=== PATIENT | female | born 1950 ===

== ENCOUNTER 2016-09-19 21:14 | Emergency (ER) | payer MEDICARE, MEDICAID ==
[2016-09-19 21:25] VITALS: BP 153/74; PULSE 89; RESP 18; TEMP 97.8; O2SAT 97
[2016-09-19] MEDS ORDERED: Oxycodone/Acetaminophen 5/325 mg Tab PO STA (21:30)
[2016-09-19] MEDS ORDERED: Oxycodone/Acetaminophen 5/325 mg Tab ONE (21:34)
--- NOTE | 2016-09-19 21:35 | C.PDOC ---
History Of Present Illness 65 y/o female presents to the ED with complaints of left upper dental pain x1 day. Pt states she got new dentures a few months ago and developed pain to left upper side yesterday, pain persisted after removing dentures. Denies fever, chills, or any other complaints. Chief Complaint (Nursing): Dental Pain History Per: Patient History/Exam Limitations: no limitations Onset/Duration Of Symptoms: Hrs Current Symptoms Are (Timing): Still Present Severity: Moderate Quality: Positive for: "Pain" Recent travel outside of the [place]: No Past Medical History Reviewed: Historical Data, Nursing Documentation, Vital Signs Vital Signs: Last Vital Signs Temp 97.8 F 09/19/16 21:23 Pulse 89 09/19/16 21:23 Resp 18 09/19/16 21:23 BP 153/74 H 09/19/16 21:23 Pulse Ox 97 09/19/16 21:39 - Medical History PMH: HTN Family History: States: Unknown Family Hx - Social History Hx Alcohol Use: No Hx Substance Use: No - Immunization History Hx Tetanus Toxoid Vaccination: Yes Hx Influenza Vaccination: No Hx Pneumococcal Vaccination: No Review Of Systems Constitutional: Negative for: Fever, Chills ENT: Positive for: Other (left upper dental pain) Physical Exam - Physical Exam Appears: Non-toxic, No Acute Distress Skin: Warm, Dry, No Rash Head: Atraumatic, Normacephalic Oral Mucosa: Moist Teeth: No Caries (no obvious caries), Other (3 teeth remaining) Gingiva: Swelling (mild), No Bleeding, No Abscess Throat: Normal Neck: Normal, Normal ROM, Supple Neurological/Psych: Oriented x3, Normal Speech, Normal Cognition ED Course And Treatment O2 Sat by Pulse Oximetry: 97 (room air) Pulse Ox Interpretation: Normal Progress Note: Plan: penicillin, percocet. On reevaluation, pain improved and pt is feeling better. Instructed patient to follow up with dentist in 2-3 days for further evaluation. Disposition - Disposition Referrals: Angie Ramos MD [Non-Staff] - Disposition: HOME/ ROUTINE Disposition Time: 21:44 Condition: STABLE Additional Instructions: Follow up with PMD and Dentist within 1-2 days. Return to ED if feel worse. Prescriptions: Penicillin VK [Pen-Vee K] 500 mg PO Q6 #28 tab oxyCODONE/Acetaminophen [Percocet 5/325 mg Tab] 1 tab PO QID PRN #20 tab PRN Reason: Pain Instructions: Toothache (ED) Forms: [facility] (Surinamese) - Clinical Impression Clinical Impression: Toothache - PA / [employer] / Resident Statement MD/DO has reviewed & agrees with the documentation as recorded. - Scribe Statement The provider has reviewed the documentation as recorded by the Scribe Josiah Keenan All medical record entries made by the Scribe were at my direction and personally dictated by me. I have reviewed the chart and agree that the record accurately reflects my personal performance of the history, physical exam, medical decision making, and the department course for this patient. I have also personally directed, reviewed, and agree with the discharge instructions and disposition.
== END 2016-09-19 22:00 | disposition home or self-care (01) ==
LOC: C.ER 21:14
DX: K08.89 Other specified disorders of teeth and supporting structures (principal)

== ENCOUNTER 2016-10-07 18:48 | Inpatient (IN) | payer OTHER ==
[2016-10-07] MEDS ORDERED: Sodium Chloride 0.9% 1,000 ML IV ONE (19:45)
--- NOTE | 2016-10-07 19:46 | CT ---
EXAM: CT Head Without Intravenous Contrast EXAM DATE/TIME: Exam ordered 10/07/2016 7:20 PM CLINICAL HISTORY: 65 years old, female; Signs and symptoms; Weakness, facial; Patient HX: Rt facial droop/h/o CVA; Additional info: Stroke alert bed 6 TECHNIQUE: Axial computed tomography images of the head/brain without intravenous contrast. All CT scans at this facility use one or more dose reduction techniques, viz.: automated exposure control; ma/kV adjustment per patient size (including targeted exams where dose is matched to indication; i.e. head); or iterative reconstruction technique. COMPARISON: No relevant prior studies available. FINDINGS: Brain: There is a 6 mm low density focus noted at the genu of the internal capsule on the right Basal ganglia calcifications seen. 2 foci of low density are noted within the meliton measuring 6 mm and 4 mm respectively . They focal area of relative decreased some density is noted within the left thalamus and posterior limb of the internal capsule extending into the helms radiata and centrum semiovale bilaterally. Periventricular low density is seen bilaterally. No hemorrhage. No significant white matter disease. No edema. Ventricles: Unremarkable. No ventriculomegaly. Bones/joints: Unremarkable. No acute fracture. Soft tissues: Unremarkable. Sinuses: Soft tissue thickening is noted within the left ethmoid air cells. Mastoid air cells: Unremarkable as visualized. No mastoid effusion. 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 IMPRESSION: 1. No acute findings. 2. Subacute/chronic infarct on the left extending from the thalamus into the posterior limb of the internal capsule, helms radiata and centrum semiovale. 3. Subacute/chronic lacunar infarct in the genu of the right internal capsule. 4. Subacute/chronic lacunar infarcts noted within the meliton 5. Chronic sinusitis in the left ethmoids
--- NOTE | 2016-10-07 19:47 | C.PDOC ---
History Of Present Illness <Jaswant Cavazos - Last Filed: 10/07/16 21:32> <Fam Hernandez - Last Filed: 10/08/16 09:39> 65 year old female with a Hx of depression and 2 CVAs in 2002 and 2006 was brought to the ER by family for a complaint of slurred speech since yesterday at 14:00. Patient has residual right sided weakness from the prior CVA. As per family, patient has been crying for the past 2-3 days. Patient denies headache, nausea, vomiting, dizziness, or chest pain. (Jaswant Cavazos) History Per: Patient, Family History/Exam Limitations: no limitations Onset/Duration Of Symptoms: Days Current Symptoms Are (Timing): Still Present Activity At Onset Of Symptoms: Other (Not known) Seizure Or Post-ictal Symptoms: None Possible Causative Factor(s): Other (Not known) Fall Associated With With Symptoms: No Recent travel outside of the [place]: No - Symptoms Of CVA Associated Symptoms: Impaired Speech (Slurred). denies: Seizure Activity, New Vision Deficit(Left), New Vision Deficit(Right), Decreased Ability To Walk, New Confusion Character Of Deficits: Right: Weakness (Residual from old CVA) Recent Head Trauma: No <Jaswant Caavzos R - Last Filed: 10/07/16 21:32> <Fam Hernandez - Last Filed: 10/08/16 09:39> Time Seen by Provider: 10/07/16 19:30 Chief Complaint (Nursing): Weakness/Neurological Deficit Past Medical History Reviewed: Historical Data, Nursing Documentation, Vital Signs - Medical History PMH: HTN, Hypercholesterolemia Surgical History: No Surg Hx Family History: States: Unknown Family Hx - Social History Hx Alcohol Use: No Hx Substance Use: No - Immunization History Hx Tetanus Toxoid Vaccination: Yes Hx Influenza Vaccination: No Hx Pneumococcal Vaccination: No <Jaswant Cavazos - Last Filed: 10/07/16 21:32> Review Of Systems Constitutional: Negative for: Fever, Chills Cardiovascular: Negative for: Chest Pain Gastrointestinal: Negative for: Nausea, Vomiting Neurological: Positive for: Change in Speech. Negative for: Headache, Dizziness <Jaswant Cavazos - Last Filed: 10/07/16 21:32> Physical Exam - Physical Exam Appears: Non-toxic, Other (Alert, Conscious) Skin: Normal Color, Warm, Dry Head: Atraumatic, Normacephalic Eye(s): right: Other (Eye prosthesis), left: Normal Inspection Oral Mucosa: Moist Neck: Normal, Supple Chest: Symmetrical, No Tenderness Cardiovascular: Rhythm Regular, No Murmur Respiratory: Normal Breath Sounds, No Rales, No Rhonchi, No Wheezing Gastrointestinal/Abdominal: Soft, No Tenderness Neurological/Psych: Oriented x3, Normal Speech, Normal Cognition, Other (Mild right sided weakness from old CVA) <Jaswant Cavazos R - Last Filed: 10/07/16 21:32> ED Course And Treatment - Laboratory Results Result Diagrams: 10/07/16 20:00 10/07/16 20:00 O2 Sat by Pulse Oximetry: 99 (Room air) Pulse Ox Interpretation: Normal - CT Scan/US CT Head Other Rad Studies (CT/US): Read By Radiologist, Radiology Report Reviewed CT/US Interpretation: EXAM: CT Head Without Intravenous Contrast. EXAM DATE/ TIME: Exam ordered 10/07/2016 7:20 PM. CLINICAL HISTORY: 65 years old, female ; Signs and symptoms; Weakness, facial; Patient HX: Rt facial droop/h/o CVA;. Additional info: Stroke alert bed 6. TECHNIQUE: Axial computed tomography images of the head/brain without intravenous contrast. All CT scans at. this facility use one or more dose reduction techniques, viz.: automated exposure control; ma/kV. adjustment per patient size (including targeted exams where dose is matched to indication; i.e. head);. or iterative reconstruction technique. COMPARISON: No relevant prior studies available. FINDINGS: Brain : There is a 6 mm low density focus noted at the genu of the internal capsule on the right. Basal ganglia calcifications seen. 2 foci of low density are noted within the meliton measuring 6 mm. and 4 mm respectively . They focal area of relative decreased some density is noted within the left. thalamus and posterior limb of the internal capsule extending into the helms radiata and centrum. semiovale bilaterally. Periventricular low density is seen bilaterally. No hemorrhage. No significant. white matter disease. No edema. Ventricles: Unremarkable. No ventriculomegaly. Bones/joints: Unremarkable. No acute fracture. Soft tissues: Unremarkable. Sinuses: Soft tissue thickening is noted within the left ethmoid air cells. Mastoid air cells: Unremarkable as visualized. No mastoid effusion. 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 IMPRESSION: 1. No acute findings. 2. Subacute/chronic infarct on the left extending from the thalamus into the posterior limb of the. internal capsule, helms radiata and centrum semiovale. 3. Subacute/chronic lacunar infarct in the genu of the right internal capsule. 4. Subacute/chronic lacunar infarcts noted within the meliton. 5. Chronic sinusitis in the left ethmoids Progress Note: Head CT, EKG, and blood work ordered. IV fluids administered. <Jaswant Cavazos - Last Filed: 10/07/16 21:32> - Laboratory Results Result Diagrams: 10/08/16 07:13 10/08/16 07:13 <Fam Hernandez - Last Filed: 10/08/16 09:39> NIHSS Stroke Scale - Date/Time Evaluation Performed Date Performed: 10/07/16 Time Performed: 19:40 When Was NIHSS Performed: Baseline - How Severe is the Stoke Level of Consciousness: 0=Alert LOC to Questions: 0=Both comments correct LOC to commands: 0=Obeys both correctly Visual: 1=Partial hemianopia (Right eye-prothesis) Facial: 1=Minor asymmetry Motor Arm - Left: 0=No drift Motor Arm - Right: 0=No drift Motor Leg - Left: 0=No drift Motor Leg - Right: 1=Drift before 5 sec Limb Ataxia: 0=Absent Sensory: 0=Normal Best Language: 0=No aphasia Dysarthia: 1=Mild to moderate slurring Extinction & Inattention (Neglect): 0=Normal, no object Severity Of Stroke: 1-4= Minor Stroke (Hx ofold CVA-2002 and 2006) <Jaswant Cavazos - Last Filed: 10/07/16 21:32> Medical Decision Making <Jaswant Cavazos - Last Filed: 10/07/16 21:32> <Fam Hernandez - Last Filed: 10/08/16 09:39> Medical Decision Making: I received a call from radiologist at 9:38 with MRI showing acute stroke. Patient admitted with neuro consult and under medical management already. (Fam Hernandez) Disposition Discussed With : Preston Craft Doctor Will See Patient In The: Hospital Counseled Patient/Family Regarding: Diagnosis - Disposition Disposition Time: 21:27 - POA Present On Arrival: None <Jaswant Cavazos - Last Filed: 10/07/16 21:32> <Fam Hernandez - Last Filed: 10/08/16 09:39> - Disposition Disposition: HOSPITALIZED Condition: STABLE - Clinical Impression Clinical Impression: Slurring of speech, CVA, old, dysarthria, Hypertension - Scribe Statement The provider has reviewed the documentation as recorded by the Scribe <Jaswant Cavazos - Last Filed: 10/07/16 21:32> <Fam Hernandez - Last Filed: 10/08/16 09:39> - Scribe Statement Ramon Garsia All medical record entries made by the Scribe were at my direction and personally dictated by me. I have reviewed the chart and agree that the record accurately reflects my personal performance of the history, physical exam, medical decision making, and the department course for this patient. I have also personally directed, reviewed, and agree with the discharge instructions and disposition. (Jaswant Cavazos)
[2016-10-07 20:14] LABS: BASO # 0.1 K/uL (0.0-0.2); BASO % 0.5 % (0.0-2.0); EOS # 0.2 K/uL (0.0-0.7); EOS % 1.1 % (0.0-4.0); HEMATOCRIT 39.3 % (34.0-47.0); LYMPH # 2.9 K/uL (1.0-4.3); LYMPH % 16.7 % (20.0-40.0); MEAN CELL VOLUME 81.7 fL (81.0-99.0); MEAN CORPUSCULAR HEMOGLOBIN 26.5 pg (27.0-31.0); MEAN CORPUSCULAR HGB CONC 32.4 g/dL (33.0-37.0); MEAN PLATELET VOLUME 9.5 fL (7.2-11.7); MONO # 0.8 K/uL (0.0-0.8); MONO % 4.4 % (0.0-10.0); RED CELL DISTRIBUTION WIDTH 13.9 % (11.5-14.5); WHITE BLOOD COUNT 17.4 K/uL (4.8-10.8)
[2016-10-07 20:18] LABS: POTASSIUM 5.1 mmol/L (3.6-5.2)
[2016-10-07 20:20] LABS: ALB/GLOB RATIO 1.1 (1.0-2.1); BILIRUBIN,TOTAL 0.7 mg/dL (0.2-1.3); TOTAL PROTEIN 7.7 g/dL (6.3-8.3)
[2016-10-08 01:15] LABS: RBC URINE < 1 /hpf (0-3); URINE BILIRUBIN NEGATIVE (NEGATIVE); URINE BLOOD NEGATIVE (NEGATIVE); URINE COLOR Straw (YELLOW); URINE GLUCOSE (UA) 3+ mg/dL (Normal); URINE KETONE NEGATIVE (NEGATIVE); URINE LEUKOCYTE ESTERASE NEG Leu/uL (Negative); URINE PROTEIN 1+ mg/dL (NEGATIVE); URINE UROBILINOGEN NORMAL mg/dL (0.2-1.0); WBC URINE < 1 /hpf (0-5)
[2016-10-08 07:20] LABS: HEMATOCRIT 37.4 % (34.0-47.0); MEAN CELL VOLUME 81.3 fL (81.0-99.0); MEAN CORPUSCULAR HEMOGLOBIN 26.5 pg (27.0-31.0); MEAN CORPUSCULAR HGB CONC 32.5 g/dL (33.0-37.0); MEAN PLATELET VOLUME 9.7 fL (7.2-11.7); RED CELL DISTRIBUTION WIDTH 14.1 % (11.5-14.5); WHITE BLOOD COUNT 15.1 K/uL (4.8-10.8)
[2016-10-08 07:26] LABS: POTASSIUM 4.2 mmol/L (3.6-5.2)
[2016-10-08 07:29] LABS: CALCIUM 9.3 mg/dl (8.6-10.4)
--- NOTE | 2016-10-08 09:38 | MRI ---
PROCEDURE: MRI BRAIN WITHOUT CONTRAST HISTORY: CVA COMPARISON: Comparison is made to the previous CT dated 10/07/2016 TECHNIQUE: Multiplanar, multisequence MR images of the brain were obtained without intravenous contrast enhancement. FINDINGS: HEMORRHAGE: None DWI: There is focal diffusion restriction at the right aspect of the meliton measures approximately 1 centimeter consistent with acute/early subacute infarction. BRAIN PARENCHYMA: Again seen are foci of encephalomalacia at the left thalamus and basal ganglia consistent with old lacunar infarct. There is also encephalomalacia at the left coronal radiata also suggestive of old infarct. [id number] atrophy and vzbv-ad-qtkmanlt chronic microvascular white matter ischemic disease are seen. VENTRICLES: Unremarkable. No hydrocephalus. CRANIUM: Unremarkable. ORBITS: Grossly unremarkable. PARANASAL SINUSES/MASTOIDS: Mild sinuses mucosal thickening seen in the ethmoid maxillary and sphenoid sinuses. VASCULAR SYSTEM: Skull base flow voids intact. OTHER FINDINGS: None. IMPRESSION: Focal diffusion restriction at the right meliton consistent with acute/early subacute infarction. Foci of encephalomalacia at the left thalamus/ basal ganglia and helms radiata consistent with old small infarctions. Rtzm-mb-lttancgv atrophy and chronic microvascular white matter ischemic disease. Mild sinuses mucosal disease.
--- NOTE | 2016-10-08 10:46 | RAD ---
HISTORY: CVA COMPARISON: None available. TECHNIQUE: Chest, one view. FINDINGS: Examination limited by habitus. LUNGS: No focal consolidation. Please note that chest x-ray has limited sensitivity for the detection of pulmonary masses. PLEURA: No significant pleural effusion identified. No definite pneumothorax . CARDIOVASCULAR: Heart size appears within normal limits. Atherosclerotic calcifications of the aorta. OSSEOUS STRUCTURES: Degenerative changes. VISUALIZED UPPER ABDOMEN: Unremarkable. OTHER FINDINGS: None. IMPRESSION: No focal consolidation, significant pleural effusion, or definite pneumothorax identified.
[2016-10-08] MEDS: Enoxaparin 40 mg Syringe SC SCH (11:00)
--- NOTE | 2016-10-08 17:33 | CP.PCM.CON ---
History of Present Illness - History of Present Illness History of Present Illness: Mrs. Neely is a 65-year-old woman with a past medical history of previous ischemic stroke, HTN, DM, HLD who was brought to the ED due to worsening slurred speech. She was hypertensive on arrival to the ED. MRI of the brain showed multi-focal ischemic strokes involving bilateral basal ganglia that are chronic and an acute to subacute ischemic stroke involving the right paramedian region of the meliton. Today, she continued to have dysarthria and dysphagia with gait instability. She had no other complaints or new symptoms overnight. She denied headache, but did complain of some diplopia at times. No nausea, vomiting abdominal pain, SOB or other associated symptoms. Review of Systems - Review of Systems All systems: reviewed and no additional remarkable complaints except Past Patient History - Past Social History Smoking Status: Never Smoked - CARDIAC Hx Hypercholesterolemia: Yes Hx Hypertension: Yes - NEUROLOGICAL HX Cerebrovascular Accident: Yes (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) - HEENT Hx HEENT Problems: Yes Other/Comment: RT EYE PROSTHESIS - ENDOCRINE/METABOLIC Hx Endocrine Disorders: Yes Hx Diabetes Mellitus Type 2: Yes - MUSCULOSKELETAL/RHEUMATOLOGICAL Hx Falls: No - PSYCHIATRIC Hx Substance Use: No - SURGICAL HISTORY Hx Surgeries: Yes Other/Comment: RT EYE SX - ANESTHESIA Hx Anesthesia: Yes Hx Anesthesia Reactions: No Meds Allergies/Adverse Reactions: Allergies Allergy/AdvReac Type Severity Reaction Status Date / Time No Known Allergies Allergy Verified 03/04/15 12:26 - Medications Medications: Current Medications Amlodipine Besylate (Norvasc) 10 mg PO DAILY [facility] Last Admin: 10/08/16 11:00 Dose: 10 mg Aspirin (Ecotrin) 81 mg PO DAILY [facility] Last Admin: 10/08/16 11:00 Dose: 81 mg Clopidogrel Bisulfate (Plavix) 75 mg PO DAILY [facility] Enoxaparin Sodium (Lovenox) 40 mg SC DAILY [facility] Last Admin: 10/08/16 11:00 Dose: 40 mg Sodium Chloride (Sodium Chloride 0.9%) 1,000 mls @ 100 mls/hr IV .Q10H [facility] Insulin Aspart (Novolog) 0 unit SC ACBHS [facility] PRN Reason: Protocol Losartan Potassium (Cozaar) 50 mg PO DAILY [facility] Last Admin: 10/08/16 11:00 Dose: 50 mg Metformin HCl (Glucophage) 1,000 mg PO BID [facility] Last Admin: 10/08/16 11:00 Dose: 1,000 mg Pneumococcal Polyvalent Vaccine (Pneumovax 23 Vaccine) 0.5 ml IM .ONCE ONE Stop: 10/09/16 10:01 Rosuvastatin Calcium (Crestor) 20 mg PO HS [facility] Last Admin: 10/08/16 00:29 Dose: 20 mg Physical Exam - Constitutional Appears: Well - Head Exam Head Exam: ATRAUMATIC, NORMAL INSPECTION, NORMOCEPHALIC - Eye Exam Eye Exam: EOMI, Normal appearance, PERRL - ENT Exam ENT Exam: Mucous Membranes Moist, Normal Exam - Neck Exam Neck exam: Positive for: Normal Inspection - Respiratory Exam Respiratory Exam: Clear to Auscultation Bilateral, NORMAL BREATHING PATTERN - Cardiovascular Exam Cardiovascular Exam: REGULAR RHYTHM, +S1, +S2 - GI/Abdominal Exam GI & Abdominal Exam: Normal Bowel Sounds, Soft. absent: Tenderness - Rectal Exam Rectal Exam: Deferred - Extremities Exam Extremities exam: Positive for: normal inspection - Back Exam Back exam: NORMAL INSPECTION - Neurological Exam Neurological exam: Abnormal Gait, CN II-XII Intact, Oriented x3 Additional comments: Reflexes are brisk on the left side with upgoing bilateral plantar responses. Gait is wide based. Sensation is decreased on the left side to LT/P. Dysarthria was noted. No significant aphasia. NIHSS = 4 - Psychiatric Exam Psychiatric exam: Normal Affect, Normal Mood - Skin Skin Exam: Dry, Intact, Normal Color, Warm Results - Vital Signs Recent Vital Signs: Last Vital Signs Temp 98.3 F 10/08/16 15:09 Pulse 65 10/08/16 15:09 Resp 20 10/08/16 15:09 BP 153/71 H 10/08/16 15:09 Pulse Ox 98 10/08/16 15:09 - Labs Result Diagrams: 10/08/16 07:13 10/08/16 07:13 Labs: Laboratory Results - last 24 hr 10/08/16 10/08/16 10/08/16 00:46 07:13 07:13 WBC 15.1 H RBC 4.60 Hgb 12.2 Hct 37.4 MCV 81.3 MCH 26.5 L MCHC 32.5 L RDW 14.1 Plt Count 321 MPV 9.7 Sodium 135 Potassium 4.2 Chloride 98 Carbon Dioxide 27 Anion Gap 15 BUN 25 H Creatinine 1.1 Est GFR ( Amer) 60 Est GFR (Non-Af Amer) 50 POC Glucose (mg/dL) Random Glucose 230 H Calcium 9.3 Urine Color Straw Urine Clarity Clear Urine pH 7.0 Ur Specific [place] 1.011 Urine Protein 1+ H Urine Glucose (UA) 3+ H Urine Ketones Negative Urine Blood Negative Urine Nitrate Negative Urine Bilirubin Negative Urine Urobilinogen Normal Ur Leukocyte Esterase Neg Urine WBC (Auto) < 1 Urine RBC (Auto) < 1 Ur Squamous Epith Cells 1 10/08/16 07:53 WBC RBC Hgb Hct MCV MCH MCHC RDW Plt Count MPV Sodium Potassium Chloride Carbon Dioxide Anion Gap BUN Creatinine Est GFR ( Amer) Est GFR (Non-Af Amer) POC Glucose (mg/dL) 306 H Random Glucose Calcium Urine Color Urine Clarity Urine pH Ur Specific [place] Urine Protein Urine Glucose (UA) Urine Ketones Urine Blood Urine Nitrate Urine Bilirubin Urine Urobilinogen Ur Leukocyte Esterase Urine WBC (Auto) Urine RBC (Auto) Ur Squamous Epith Cells Assessment & Plan (1) Ischemic stroke Assessment and Plan: All of her previous and current infarcts are in 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 I recommend using CCB and ARB or JOE-I for BP control and tight glucose control per primary team. Furthermore, I recommend: 1. Telemetry 2. Echocardiogram with Bubble study 3. CTA of the head/neck 4. Load with Plavix 300 mg today and continue both aspirin 81 mg and Plavix 75 mg daily 5. Continue Crestor for high dose statin therapy 6. Check HbA1c, B12, Folate, TSH, CRP, ESR, and hypercoagulable work-up 7. NPO till swallow eval 8. PT/OT eval and treat 9. DVT Px 10. Fluids with NS at 100 ml/hr 11. Permissive hypertension for next 24 hours (do not treat BP < 200/100 mm Hg) 12. Case management consult. Thank you. Status: Acute Priority: High
--- NOTE | 2016-10-08 17:59 | CARD ---
APPROVED REPORT EXAM: Two-dimensional and M-mode echocardiogram with Doppler and color Doppler. Other Information Quality : GoodRhythm : NSR INDICATION CVA/TIA RISK FACTORS Hypertension Hyperlipidemia 2D DIMENSIONS IVSd1.3 (0.7-1.1cm)LVDd3.6 (3.9-5.9cm) PWd1.2 (0.7-1.1cm)LVDs2.3 (2.5-4.0cm) FS (%) 36.7 %LVEF (%)67.5 (>50%) M-Mode DIMENSIONS Left Atrium (MM)3.95 (2.5-4.0cm)IVSd1.40 (0.7-1.1cm) Aortic Root3.07 (2.2-3.7cm)LVDd4.74 (4.0-5.6cm) Aortic Cusp Exc.1.76 (1.5-2.0cm)PWd1.18 (0.7-1.1cm) FS (%) 48 %LVDs2.46 (2.0-3.8cm) LVEF (%)79 (>50%) Mitral Valve MV E Bxdcjues87.5cm/sMV A Vetclffm622.1cm/sE/A ratio0.6 TDI E/Lateral E'0.0E/Medial E'0.0 Tricuspid Valve TR Peak [id number]/sTR Peak Gr.[id number] LEFT VENTRICLE The left ventricle is normal size. There is mild concentric left ventricular hypertrophy. Left ventricle systolic function is normal. The Ejection Fraction is >70%. There is normal LV segmental wall motion. Tissue Doppler imaging reveals abnormal left ventricular diastolic dysfunction. RIGHT VENTRICLE The right ventricle is normal size. There is normal right ventricular wall thickness. The right ventricular systolic function is normal. ATRIA The left atrium size is normal. The right atrium size is normal. The interatrial septum is intact with no evidence for an atrial septal defect. AORTIC VALVE The aortic valve is normal in structure. No aortic regurgitation is present. There is no aortic valvular stenosis. There is no aortic valvular vegetation. MITRAL VALVE The mitral valve is normal in structure. There is no evidence of mitral valve prolapse. There is no mitral valve stenosis. Mitral regurgitation is trace to mild. TRICUSPID VALVE The tricuspid valve is normal in structure. There is no tricuspid regurgitation. Right ventricular systolic pressure is estimated at less than 30 mmHg. There is no pulmonary hypertension. PULMONIC VALVE The pulmonic valve is not well visualized. There is no pulmonic valvular regurgitation. GREAT VESSELS The aortic root is normal in size. PERICARDIAL EFFUSION There is no significant pericardial effusion. <Conclusion> Left ventricle systolic function is normal. The Ejection Fraction is >70%. Hypertensive heart disease. Diastolic dysfunction. No aortic regurgitation is present. Mitral regurgitation is trace to mild. There is no tricuspid regurgitation. There is no pulmonary hypertension. There is no pulmonic valvular regurgitation.
[2016-10-08] MEDS ORDERED: Sodium Chloride 0.9% 1,000 ML IV ONE (18:14)
[2016-10-08] MEDS: (Novolog) Insulin Aspart, Recombinant 100 u/ml 10 ml vial SC SCH ×2 (18:14→22:07)
[2016-10-08] MEDS ORDERED: Iodixanol 320 MG/ML 100 ML BOTTLE IV ONE (18:20)
[2016-10-08] MEDS: Sodium Chloride 0.9% 1,000 ML IV SCH (18:24)
--- NOTE | 2016-10-08 21:49 | CT ---
EXAM: CT Angiography Head With Intravenous Contrast CLINICAL HISTORY: 65 years old, female; Signs and symptoms and condition or disease; Other: Stroke; Weakness TECHNIQUE: Axial computed tomographic angiography images of the head with intravenous contrast using CT angiography protocol. All CT scans at this facility use one or more dose reduction techniques, viz.: automated exposure control; ma/kV adjustment per patient size (including targeted exams where dose is matched to indication; i.e. head); or iterative reconstruction technique. MIP reconstructed images were created and reviewed. Coronal and sagittal reformatted images were created and reviewed. CONTRAST: 100 mL of VISIPAQUE 320 administered intravenously. COMPARISON: No relevant prior studies available. FINDINGS: Atheromatous change is noted of the cavernous carotid arteries Right internal carotid artery: . Intracranial segment is patent with no significant stenosis. No aneurysm. 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 No occlusion or significant stenosis. No aneurysm. Right middle cerebral artery: Unremarkable. No occlusion or significant stenosis. No aneurysm. Right posterior cerebral artery: Unremarkable. No occlusion or significant stenosis. No aneurysm. Right vertebral artery: Unremarkable as visualized. Left internal carotid artery: No occlusion or significant stenosis. Left anterior cerebral artery: Unremarkable. No occlusion or significant stenosis. No aneurysm. And are in the lid and gastritis a him not yet Left middle cerebral artery: Unremarkable. No occlusion or significant stenosis. No aneurysm. Left posterior cerebral artery: Unremarkable. No occlusion or significant stenosis. No aneurysm. Left vertebral artery: Unremarkable as visualized. Left internal jugular vein:The left internal jugular veinoccludes at the level of the carotid bulb but reconstitutes at the skull base. Basilar artery: The basilar artery is small but without focal stenosis. No aneurysm. Bones/joints: There is a prosthesis in the right orbit. No acute fracture. Sinuses: Mucosal thickening is seen in the sphenoid sinuses bilaterally. Mucosal thickening is noted in the left ethmoid air cells. IMPRESSION: 1. 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 2. The basilar artery is small but without focal stenosis. 3. Mucosal thickening noted within the sphenoid sinuses bilaterally and the left ethmoid air cells. 4. 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 All CT scans at this facility use one or more dose reduction techniques, viz.: automated exposure control; ma/kV adjustment per patient size (including targeted exams where dose is matched to indication; i.e. head); or iterative reconstruction technique. MIP reconstructed images were created and reviewed. Coronal and sagittal reformatted images were created and reviewed. CONTRAST: 100 mL of VISIPAQUE 320 administered intravenously. COMPARISON: CT - HEAD W/O (CODE STROKE) 10/07/2016 7:23:30 PM FINDINGS: VASCULATURE: Right common carotid artery: Unremarkable. No significant stenosis. No dissection or occlusion. Right internal carotid artery: Mild atherosclerotic changes seen in the right carotid bulb. No stenosis is seen. No dissection or occlusion. Right external carotid artery: Unremarkable. No occlusion. Right vertebral artery: Unremarkable. No significant stenosis. No dissection or occlusion. Left common carotid artery: Unremarkable. No significant stenosis. No dissection or occlusion. Left internal carotid artery: There is a 50 % stenosis noted of the left internal carotid artery. Calcified plaque is noted along the course of the left carotid bulb and proximal internal carotid artery. No dissection or occlusion. Left external carotid artery: Unremarkable. No occlusion. Left vertebral artery: Unremarkable. No signi CT head ficant stenosis. No dissection or occlusion. NECK: Bones/joints: No acute fracture. No dislocation. Soft tissues: Unremarkable as visualized. No mass. Lung apices: Patchy groundglass densities are seen diffusely in both upper and mid lung garcia. CAROTID STENOSIS REFERENCE USING NASCET CRITERIA: % ICA stenosis = (1 - narrowest ICA diameter/diameter of distal cervical ICA) x 100. Mild - <50% stenosis. Moderate - 50-69% stenosis. Severe - 70-94% stenosis. Near occlusion - 95-99% stenosis. Occluded - 100% stenosis. IMPRESSION: 1. 50% stenosis noted of the left mid internal carotid artery. 2. Less than 50% stenosis of the right internal carotid artery. 3. Patchy groundglass density seen diffusely in both upper lung garcia..
[2016-10-08] MEDS ORDERED: (Novolog) Insulin Aspart, Recombinant 100 u/ml 10 ml vial SC SCH (22:00)
--- NOTE | 2016-10-08 23:26 | CP.PCM.HP ---
History of Present Illness - History of Present Illness History of Present Illness: 65 Y/O WITH T2DM, HTN AND A CVA IN 2002, AND JORGE IS COMPLIANT WITH HER MEDS AND 2 DAYS AGO SHE DEVELOPED APHASIA AND R SIDE FACIAL WEAKNESS, NO SEIZURE, NO LOS , NO COUGH, NO CHEST PAIN, SHE IS ANXIOUS Present on Admission - Present on Admission Any Indicators Present on Admission: Yes History of DVT/PE: No History of Uncontrolled Diabetes: Yes Urinary Catheter: No Decubitus Ulcer Present: No Review of Systems - Review of Systems Systems not reviewed;Unavailable: Unstable Vital Signs - Constitutional Constitutional: Anorexia, Weakness - EENT Eyes: Dry Eye, Irritation - Cardiovascular Cardiovascular: Pedal Edema - Menstruation Menstruation: Post Menopausal - Musculoskeletal Musculoskeletal: Abnormal Gait, Radiating Pain into Limb, Tingling Past Patient History - Past Social History Smoking Status: Never Smoked - CARDIAC Hx Hypercholesterolemia: Yes Hx Hypertension: Yes - NEUROLOGICAL HX Cerebrovascular Accident: Yes (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) - HEENT Hx HEENT Problems: Yes Other/Comment: RT EYE PROSTHESIS - ENDOCRINE/METABOLIC Hx Endocrine Disorders: Yes Hx Diabetes Mellitus Type 2: Yes - MUSCULOSKELETAL/RHEUMATOLOGICAL Hx Falls: No - PSYCHIATRIC Hx Substance Use: No - SURGICAL HISTORY Hx Surgeries: Yes Other/Comment: RT EYE SX - ANESTHESIA Hx Anesthesia: Yes Hx Anesthesia Reactions: No Meds Allergies/Adverse Reactions: Allergies Allergy/AdvReac Type Severity Reaction Status Date / Time No Known Allergies Allergy Verified 03/04/15 12:26 Physical Exam - Head Exam Head Exam: ATRAUMATIC, NORMAL INSPECTION, NORMOCEPHALIC - Eye Exam Eye Exam: EOMI, Normal appearance, PERRL Pupil Exam: NORMAL ACCOMODATION - ENT Exam ENT Exam: Normal Exam, Normal Oropharynx, TM's Normal Bilaterally - Neck Exam Neck exam: Positive for: Normal Inspection - Respiratory Exam Respiratory Exam: Clear to Auscultation Bilateral, NORMAL BREATHING PATTERN - Cardiovascular Exam Cardiovascular Exam: REGULAR RHYTHM, +S1, +S2 - GI/Abdominal Exam GI & Abdominal Exam: Normal Bowel Sounds, Soft - Rectal Exam Rectal Exam: NORMAL INSPECTION - Extremities Exam Extremities exam: Positive for: normal capillary refill, normal inspection, pedal pulses present - Neurological Exam Neurological exam: Abnormal Gait, Alert, Motor Sensory Deficit - Psychiatric Exam Psychiatric exam: Flat Affect Results - Vital Signs Recent Vital Signs: Last Vital Signs Temp 99 F 10/08/16 22:00 Pulse 65 10/08/16 22:00 Resp 20 10/08/16 22:00 BP 159/64 H 10/08/16 22:00 Pulse Ox 98 10/08/16 22:00 - Labs Result Diagrams: 10/08/16 07:13 10/08/16 07:13 Labs: Laboratory Results - last 24 hr 10/08/16 10/08/16 10/08/16 00:46 07:13 07:13 WBC 15.1 H RBC 4.60 Hgb 12.2 Hct 37.4 MCV 81.3 MCH 26.5 L MCHC 32.5 L RDW 14.1 Plt Count 321 MPV 9.7 Sodium 135 Potassium 4.2 Chloride 98 Carbon Dioxide 27 Anion Gap 15 BUN 25 H Creatinine 1.1 Est GFR ( Amer) 60 Est GFR (Non-Af Amer) 50 POC Glucose (mg/dL) Random Glucose 230 H Calcium 9.3 Urine Color Straw Urine Clarity Clear Urine pH 7.0 Ur Specific [place] 1.011 Urine Protein 1+ H Urine Glucose (UA) 3+ H Urine Ketones Negative Urine Blood Negative Urine Nitrate Negative Urine Bilirubin Negative Urine Urobilinogen Normal Ur Leukocyte Esterase Neg Urine WBC (Auto) < 1 Urine RBC (Auto) < 1 Ur Squamous Epith Cells 1 10/08/16 10/08/16 10/08/16 07:53 16:46 21:06 WBC RBC Hgb Hct MCV MCH MCHC RDW Plt Count MPV Sodium Potassium Chloride Carbon Dioxide Anion Gap BUN Creatinine Est GFR ( Amer) Est GFR (Non-Af Amer) POC Glucose (mg/dL) 306 H 407 H* 235 H Random Glucose Calcium Urine Color Urine Clarity Urine pH Ur Specific [place] Urine Protein Urine Glucose (UA) Urine Ketones Urine Blood Urine Nitrate Urine Bilirubin Urine Urobilinogen Ur Leukocyte Esterase Urine WBC (Auto) Urine RBC (Auto) Ur Squamous Epith Cells Assessment & Plan (1) Diabetes mellitus Status: Chronic Priority: Medium (2) Hyperlipidemia Status: Chronic Priority: High (3) Hypertension Status: Chronic Priority: Medium (4) Ischemic stroke Assessment and Plan: R/O L MCA INFARCT Status: Acute Priority: High
[2016-10-09 08:22] LABS: CHOLESTEROL 147 mg/dL (0-199)
[2016-10-09] MEDS: (Novolog) Insulin Aspart, Recombinant 100 u/ml 10 ml vial SC SCH ×4 (08:36→22:08)
[2016-10-09] MEDS: Sodium Chloride 0.9% 1,000 ML IV SCH ×2 (08:39→14:34)
[2016-10-09] MEDS: Enoxaparin 40 mg Syringe SC SCH (09:25)
[2016-10-09] MEDS ORDERED: Pneumococcal 23-Valent Vaccine IM ONE (10:00)
--- NOTE | 2016-10-09 11:43 | VASCLAB ---
PROCEDURE: HISTORY: CVA COMPARISON: None available. TECHNIQUE: Grayscale and duplex Doppler evaluation of the cervical carotid and vertebral arteries were performed. The common carotid, carotid bifurcations and cervical Internal Carotid Artery (ICA) and proximal External Carotid Artery (ECA) were evaluated. The vertebral arteries were evaluated for gross patency and flow direction. Report prepared by Ramon Olivia, BS, RVT FINDINGS: RIGHT CAROTID ARTERIES: 1. Common Carotid Artery: No significant focal plaque formation of the right common carotid artery. Maximum Peak Systolic velocity: 57 cm/sec: End-diastolic velocity 11 cm/sec. 2. Carotid Bifurcation: plaque formation. Maximum Peak Systolic velocity: 65 cm/sec: End-diastolic velocity 13 cm/sec. 3. Internal Carotid Artery: Moderate plaque formation of the right proximal ICA which does not results in hemodynamically significant stenosis. Plaque description: Calcific 3.1. Proximal Segment: Peak systolic velocity 84 cm/sec: End-diastolic velocity 15 cm/sec - % stenosis 0-15% 3.2. Middle Segment: Peak systolic velocity 62 cm/sec: End-diastolic velocity 18 cm/sec - % stenosis 0-15% 3.3. Distal Segment: Peak systolic velocity 83 cm/sec: End-diastolic velocity 22 cm/sec - % stenosis 0-15% 4. External Carotid Artery: No significant focal plaque formation. Peak systolic velocity 113 cm/sec 5. ICA/CCA Ratio: 1.5 LEFT CAROTID ARTERIES: 1. Common Carotid Artery: No significant focal plaque formation of the left common carotid artery. Maximum Peak Systolic velocity: 73 cm/sec: End-diastolic velocity 14 cm/sec. 2. Carotid Bifurcation: Calcific plaque formation. Maximum Peak Systolic velocity: 84 cm/sec: End-diastolic velocity 18 cm/sec. 3. Internal Carotid Artery: Moderate plaque formation of the left proximal ICA which does not results in hemodynamically significant stenosis. Plaque description: Calcific 3.1. Proximal Segment: Peak systolic velocity 66 cm/sec: End-diastolic velocity 19 cm/sec - % stenosis 0-15% 3.2. Middle Segment: Peak systolic velocity 117 cm/sec: End-diastolic velocity 29 cm/sec - % stenosis 0-15% 3.3. Distal Segment: Peak systolic velocity 60 cm/sec: End-diastolic velocity 16 cm/sec - % stenosis 0-15% 4. External Carotid Artery: No significant focal plaque formation. Peak systolic velocity 112 cm/sec 5. ICA/CCA Ratio: 1.6 VERTEBRAL ARTERIES: 1. Right Vertebral Artery: The right vertebral artery flow direction is antegrade. 2. Left Vertebral Artery: The left vertebral artery flow direction is antegrade. OTHER FINDINGS: 1. Right Brachial Blood pressure: 142 mmHg. 2. Left Brachial Blood pressure: 140 mmHg. IMPRESSION: RIGHT: Duplex scan does not suggest hemodynamically significant stenosis of the right extracranial carotid arteries. LEFT: Duplex scan does not suggest hemodynamically significant stenosis of the left extracranial carotid arteries.
[2016-10-09] MEDS: Pneumococcal 23-Valent Vaccine IM ONE ×2 (14:34→14:58)
--- NOTE | 2016-10-09 17:32 | CP.PCM.PN ---
Subjective - Date & Time of Evaluation Date of Evaluation: 10/09/16 Time of Evaluation: 17:29 - Subjective Subjective: Mrs. Neely was seen and examined today at bedside. She was found in NAD. There were no acute events overnight. Objective - Vital Signs/Intake and Output Vital Signs (last 24 hours): Temp Pulse Resp BP Pulse Ox 98.6 F 64 20 179/72 H 95 10/09/16 17:04 10/09/16 17:04 10/09/16 17:04 10/09/16 17:04 10/09/16 17:04 Intake and Output: 10/09/16 10/09/16 06:59 18:59 Intake Total 1490 680 Balance 1490 680 - Medications Medications: Current Medications Amlodipine Besylate (Norvasc) 10 mg PO DAILY [facility] Last Admin: 10/09/16 09:25 Dose: 10 mg Aspirin (Ecotrin) 81 mg PO DAILY [facility] Last Admin: 10/09/16 09:25 Dose: 81 mg Clopidogrel Bisulfate (Plavix) 75 mg PO DAILY [facility] Last Admin: 10/09/16 09:26 Dose: 75 mg Enoxaparin Sodium (Lovenox) 40 mg SC DAILY [facility] Last Admin: 10/09/16 09:25 Dose: 40 mg Sodium Chloride (Sodium Chloride 0.9%) 1,000 mls @ 100 mls/hr IV .Q10H [facility] Last Admin: 10/09/16 14:34 Dose: Not Given Insulin Aspart (Novolog) 0 unit SC ACHS [facility] PRN Reason: Protocol Last Admin: 10/09/16 12:46 Dose: 2 unit Losartan Potassium (Cozaar) 50 mg PO DAILY [facility] Last Admin: 10/09/16 09:26 Dose: 50 mg Metformin HCl (Glucophage) 1,000 mg PO BID [facility] Rosuvastatin Calcium (Crestor) 20 mg PO HS [facility] Last Admin: 10/08/16 22:05 Dose: 20 mg - Labs Labs: 10/08/16 07:13 10/08/16 07:13 - Neurological Exam Neurological Exam: Abnormal Gait, Awake Neuro motor strength exam: Left Upper Extremity: 4, Right Upper Extremity: 4, Left Lower Extremity: 4, Right Lower Extremity: 4 Additional comments: Brisk reflexes, right lateral rectus palsy, otherwise CN 2-12 are intact. Essentially, neurologically unchanged from previous examination. Assessment and Plan (1) Ischemic stroke Assessment & Plan: Continue current medications, avoid hyperglycemia or fever, PT/OT, DVT Px, Speech and swallow. Status: Acute
[2016-10-10] MEDS: Enoxaparin 40 mg Syringe SC SCH (11:25)
[2016-10-10 11:35] LABS: BASO # 0.1 K/uL (0.0-0.2); BASO % 0.6 % (0.0-2.0); EOS # 0.2 K/uL (0.0-0.7); EOS % 1.8 % (0.0-4.0); HEMATOCRIT 39.5 % (34.0-47.0); LYMPH # 2.2 K/uL (1.0-4.3); LYMPH % 19.2 % (20.0-40.0); MEAN CELL VOLUME 81.9 fL (81.0-99.0); MEAN CORPUSCULAR HEMOGLOBIN 26.1 pg (27.0-31.0); MEAN CORPUSCULAR HGB CONC 31.9 g/dL (33.0-37.0); MEAN PLATELET VOLUME 9.6 fL (7.2-11.7); MONO # 0.6 K/uL (0.0-0.8); RED CELL DISTRIBUTION WIDTH 14.4 % (11.5-14.5); WHITE BLOOD COUNT 11.4 K/uL (4.8-10.8)
[2016-10-10 11:52] LABS: POTASSIUM 4.3 mmol/L (3.6-5.2)
[2016-10-10 11:55] LABS: CALCIUM 9.6 mg/dl (8.6-10.4)
[2016-10-10] MEDS ORDERED: Barium Sulfate for Susp 98% w/w 340g Bottle ONE (12:30)
--- NOTE | 2016-10-10 15:03 | RAD ---
PROCEDURE: Modified barium swallow study. HISTORY: Dysphagia COMPARISON: None available. TECHNIQUE: Under fluoroscopic guidance, the patient ingested various consistencies of barium. . FINDINGS: On lateral projection, the oropharynx, epiglottis and airway appear normal. There is aspiration of thin barium. There is no evidence of laryngeal penetration or aspiration with other consistencies of barium. The total fluoroscopic time is 1.9 minute. IMPRESSION: Aspiration with thin barium. Please refer to the detailed report and recommendations of the speech pathologist.
[2016-10-10] MEDS ORDERED: Labetalol 25mg/5ml Syringe IV ONE (17:09)
[2016-10-10] MEDS: (Novolog) Insulin Aspart, Recombinant 100 u/ml 10 ml vial SC SCH ×2 (17:50→22:10)
--- NOTE | 2016-10-10 18:44 | CT ---
PROCEDURE: CT HEAD WITHOUT CONTRAST. HISTORY: high BP, post stroke. COMPARISON: 10/07/2016. CT head 10/08/2016 MRI brain Summary of findings on the comparison examination: Focal diffusion restriction at the right meliton consistent with acute/early subacute infarction. Foci of encephalomalacia at the left thalamus/ basal ganglia and helms radiata consistent with old small infarctions. TECHNIQUE: Axial computed tomography images were obtained through the head/brain without intravenous contrast. Radiation dose: Total exam DLP = 975.58 Additional areas of infarction noted in the left thalamus, at internal capsule and helms radiata. Similar less pronounced changes identified in the right internal capsule. MGy-cm. This CT exam was performed using one or more of the following dose reduction techniques: Automated exposure control, adjustment of the mA and/or kV according to patient size, and/or use of iterative reconstruction technique. FINDINGS: HEMORRHAGE: No intracranial hemorrhage. BRAIN: No mass effect or edema. Focal low-attenuation areas in the meliton bilaterally. VENTRICLES: Unremarkable. No hydrocephalus. CALVARIUM: Unremarkable. PARANASAL SINUSES: Unremarkable as visualized. No significant inflammatory changes. MASTOID AIR CELLS: Unremarkable as visualized. No inflammatory changes. OTHER FINDINGS: None. IMPRESSION: No evidence of acute intracranial hemorrhage. Multiple subacute and chronic areas of cortical infarction as well as brainstem infarction again identified, remain unchanged.
[2016-10-10] MEDS: (Lantus) Insulin Glargine, Recombinant SC SCH (22:13)
--- NOTE | 2016-10-10 22:40 | CP.PCM.PN ---
Subjective - Date & Time of Evaluation Date of Evaluation: 10/10/16 - Subjective Subjective: APHASIA, MBS IS NEGATIVE AND SHE IS ON DIET, NO CHEST PAIN Objective - Vital Signs/Intake and Output Vital Signs (last 24 hours): Temp Pulse Resp BP Pulse Ox 98.4 F 55 L 18 167/71 H 95 10/10/16 20:51 10/10/16 20:51 10/10/16 20:51 10/10/16 20:51 10/10/16 20:51 - Medications Medications: Current Medications Amlodipine Besylate (Norvasc) 10 mg PO DAILY [facility] Last Admin: 10/10/16 11:23 Dose: 10 mg Aspirin (Ecotrin) 81 mg PO DAILY [facility] Last Admin: 10/10/16 11:22 Dose: 81 mg Clopidogrel Bisulfate (Plavix) 75 mg PO DAILY [facility] Last Admin: 10/10/16 11:24 Dose: 75 mg Enoxaparin Sodium (Lovenox) 40 mg SC DAILY [facility] Last Admin: 10/10/16 11:25 Dose: 40 mg Insulin Aspart (Novolog) 0 unit SC [facility] PRN Reason: Protocol Last Admin: 10/10/16 22:10 Dose: Not Given Insulin Glargine (Lantus) 12 unit SC [facility] Last Admin: 10/10/16 22:13 Dose: 12 units Losartan Potassium (Cozaar) 50 mg PO DAILY [facility] Last Admin: 10/10/16 11:24 Dose: 50 mg Metformin HCl (Glucophage) 1,000 mg PO BID [facility] Rosuvastatin Calcium (Crestor) 20 mg PO [facility] Last Admin: 10/10/16 22:13 Dose: 20 mg - Labs Labs: 10/10/16 11:28 10/10/16 11:28 - Constitutional Appears: Non-toxic, No Acute Distress - Head Exam Head Exam: ATRAUMATIC, NORMAL INSPECTION, NORMOCEPHALIC - Eye Exam Eye Exam: EOMI, Normal appearance Pupil Exam: NORMAL ACCOMODATION - ENT Exam ENT Exam: Mucous Membranes Moist, Normal Exam - Neck Exam Neck Exam: Normal Inspection - Respiratory Exam Respiratory Exam: Clear to Ausculation Bilateral, NORMAL BREATHING PATTERN - Cardiovascular Exam Cardiovascular Exam: REGULAR RHYTHM, +S1, +S2 - GI/Abdominal Exam GI & Abdominal Exam: Soft, Normal Bowel Sounds - Rectal Exam Rectal Exam: NORMAL INSPECTION - Extremities Exam Extremities Exam: Full ROM, Normal Capillary Refill, Normal Inspection - Back Exam Back Exam: NORMAL INSPECTION - Neurological Exam Neurological Exam: Abnormal Gait, Alert, Awake, CN II-XII Intact, Oriented x3 Neuro motor strength exam: Left Upper Extremity: 5, Right Upper Extremity: 5, Left Lower Extremity: 5, Right Lower Extremity: 5 - Psychiatric Exam Psychiatric exam: Flat Affect - Skin Skin Exam: Intact Assessment and Plan (1) Diabetes mellitus Status: Chronic (2) Hyperlipidemia Status: Chronic (3) Hypertension Status: Chronic (4) Ischemic stroke Assessment & Plan: ACUTE REHAB AND SHE IS ON DIET Status: Acute
[2016-10-11] MEDS: Enoxaparin 40 mg Syringe SC SCH (10:01)
[2016-10-11] MEDS: (Novolog) Insulin Aspart, Recombinant 100 u/ml 10 ml vial SC SCH ×4 (10:11→22:20)
--- NOTE | 2016-10-11 15:43 | CARD ---
APPROVED REPORT EKG Measurement Heart [id number] <Conclusion> Normal sinus rhythm Normal ECG
[2016-10-11] MEDS: (Lantus) Insulin Glargine, Recombinant SC SCH (23:36)
--- NOTE | 2016-10-11 23:46 | CP.PCM.PN ---
Subjective - Date & Time of Evaluation Date of Evaluation: 10/11/16 - Subjective Subjective: FEELS BETTER, NO SOB, NO COUGH, ON PT, CHRISTINE Objective - Vital Signs/Intake and Output Vital Signs (last 24 hours): Temp Pulse Resp BP Pulse Ox 98.0 F 72 20 141/80 97 10/11/16 15:12 10/11/16 15:12 10/11/16 15:12 10/11/16 15:12 10/11/16 15:12 - Medications Medications: Current Medications Amlodipine Besylate (Norvasc) 10 mg PO DAILY [facility] Last Admin: 10/11/16 10:02 Dose: 10 mg Aspirin (Ecotrin) 81 mg PO DAILY [facility] Last Admin: 10/11/16 10:03 Dose: 81 mg Clopidogrel Bisulfate (Plavix) 75 mg PO DAILY [facility] Last Admin: 10/11/16 10:12 Dose: 75 mg Enoxaparin Sodium (Lovenox) 40 mg SC DAILY [facility] Last Admin: 10/11/16 10:01 Dose: 40 mg Insulin Aspart (Novolog) 0 unit SC [facility] PRN Reason: Protocol Last Admin: 10/11/16 22:20 Dose: Not Given Insulin Glargine (Lantus) 12 unit SC [facility] Last Admin: 10/11/16 23:36 Dose: 12 units Losartan Potassium (Cozaar) 50 mg PO DAILY [facility] Last Admin: 10/11/16 10:02 Dose: 50 mg Metformin HCl (Glucophage) 1,000 mg PO BID [facility] Last Admin: 10/11/16 17:39 Dose: 1,000 mg Rosuvastatin Calcium (Crestor) 20 mg PO [facility] Last Admin: 10/11/16 23:35 Dose: 20 mg - Labs Labs: 10/10/16 11:28 10/10/16 11:28 - Constitutional Appears: Non-toxic, No Acute Distress - Head Exam Head Exam: ATRAUMATIC, NORMAL INSPECTION, NORMOCEPHALIC - Eye Exam Eye Exam: EOMI, Normal appearance, PERRL Pupil Exam: NORMAL ACCOMODATION - ENT Exam ENT Exam: Mucous Membranes Moist, Normal Exam, Normal Oropharynx, TM's Normal Bilaterally - Neck Exam Neck Exam: Normal Inspection - Respiratory Exam Respiratory Exam: Clear to Ausculation Bilateral, NORMAL BREATHING PATTERN - Cardiovascular Exam Cardiovascular Exam: REGULAR RHYTHM, +S1, +S2 - GI/Abdominal Exam GI & Abdominal Exam: Soft, Normal Bowel Sounds - Extremities Exam Extremities Exam: Normal Capillary Refill - Neurological Exam Neurological Exam: Alert, Awake, CN II-XII Intact, Motor Sensory Deficit, Oriented x3 Assessment and Plan (1) Diabetes mellitus Status: Chronic (2) Hyperlipidemia Status: Chronic (3) Hypertension Status: Chronic (4) Ischemic stroke Assessment & Plan: ON DIET Status: Acute
[2016-10-12] MEDS: (Novolog) Insulin Aspart, Recombinant 100 u/ml 10 ml vial SC SCH ×4 (07:30→22:38)
[2016-10-12] MEDS: Enoxaparin 40 mg Syringe SC SCH (10:31)
[2016-10-12] MEDS: (Lantus) Insulin Glargine, Recombinant SC SCH (22:37)
[2016-10-13 01:35] VITALS: RESP 20
[2016-10-13] MEDS: (Novolog) Insulin Aspart, Recombinant 100 u/ml 10 ml vial SC SCH ×4 (08:00→22:51)
[2016-10-13] MEDS: Enoxaparin 40 mg Syringe SC SCH (09:55)
--- NOTE | 2016-10-13 22:05 | CP.PCM.PN ---
Subjective - Date & Time of Evaluation Date of Evaluation: 10/12/16 - Subjective Subjective: FEELS BETTER, Objective - Vital Signs/Intake and Output Vital Signs (last 24 hours): Temp Pulse Resp BP Pulse Ox 98.6 F 69 20 145/70 98 10/13/16 16:30 10/13/16 16:30 10/13/16 16:30 10/13/16 16:30 10/13/16 16:30 - Medications Medications: Current Medications Amlodipine Besylate (Norvasc) 10 mg PO DAILY [facility] Last Admin: 10/13/16 09:54 Dose: 10 mg Aspirin (Ecotrin) 81 mg PO DAILY [facility] Last Admin: 10/13/16 09:54 Dose: 81 mg Clopidogrel Bisulfate (Plavix) 75 mg PO DAILY [facility] Last Admin: 10/13/16 09:54 Dose: 75 mg Docusate Sodium (Colace) 100 mg PO BID [facility] Last Admin: 10/13/16 17:05 Dose: 100 mg Enoxaparin Sodium (Lovenox) 40 mg SC DAILY [facility] Last Admin: 10/13/16 09:55 Dose: 40 mg Insulin Aspart (Novolog) 0 unit SC [facility] PRN Reason: Protocol Last Admin: 10/13/16 17:30 Dose: Not Given Insulin Glargine (Lantus) 12 unit SC [facility] Last Admin: 10/12/16 22:37 Dose: 12 units Losartan Potassium (Cozaar) 50 mg PO DAILY [facility] Last Admin: 10/13/16 09:54 Dose: 50 mg Metformin HCl (Glucophage) 1,000 mg PO BID [facility] Last Admin: 10/13/16 09:54 Dose: 1,000 mg Rosuvastatin Calcium (Crestor) 20 mg PO [facility] Last Admin: 10/12/16 22:37 Dose: 20 mg - Labs Labs: 10/10/16 11:28 10/10/16 11:28 - Constitutional Appears: Non-toxic, No Acute Distress - Head Exam Head Exam: ATRAUMATIC, NORMAL INSPECTION, NORMOCEPHALIC - Eye Exam Eye Exam: EOMI, Normal appearance Pupil Exam: NORMAL ACCOMODATION - ENT Exam ENT Exam: Mucous Membranes Moist, Normal Exam - Neck Exam Neck Exam: Normal Inspection - Respiratory Exam Respiratory Exam: Clear to Ausculation Bilateral, NORMAL BREATHING PATTERN - GI/Abdominal Exam GI & Abdominal Exam: Soft, Normal Bowel Sounds - Rectal Exam Rectal Exam: NORMAL INSPECTION - Neurological Exam Neurological Exam: Abnormal Gait, Alert, Awake, CN II-XII Intact, Motor Sensory Deficit, Oriented x3 - Psychiatric Exam Psychiatric exam: Normal Mood - Skin Skin Exam: Intact Assessment and Plan (1) Diabetes mellitus Status: Chronic (2) Hyperlipidemia Status: Chronic (3) Hypertension Status: Chronic (4) Ischemic stroke Assessment & Plan: FOR CHRISTINE Status: Acute
--- NOTE | 2016-10-13 22:05 | CP.PCM.PN ---
Subjective - Date & Time of Evaluation Date of Evaluation: 10/13/16 - Subjective Subjective: NO FEVER, NO SOB Objective - Vital Signs/Intake and Output Vital Signs (last 24 hours): Temp Pulse Resp BP Pulse Ox 98.6 F 69 20 145/70 98 10/13/16 16:30 10/13/16 16:30 10/13/16 16:30 10/13/16 16:30 10/13/16 16:30 - Medications Medications: Current Medications Amlodipine Besylate (Norvasc) 10 mg PO DAILY [facility] Last Admin: 10/13/16 09:54 Dose: 10 mg Aspirin (Ecotrin) 81 mg PO DAILY [facility] Last Admin: 10/13/16 09:54 Dose: 81 mg Clopidogrel Bisulfate (Plavix) 75 mg PO DAILY [facility] Last Admin: 10/13/16 09:54 Dose: 75 mg Docusate Sodium (Colace) 100 mg PO BID [facility] Last Admin: 10/13/16 17:05 Dose: 100 mg Enoxaparin Sodium (Lovenox) 40 mg SC DAILY [facility] Last Admin: 10/13/16 09:55 Dose: 40 mg Insulin Aspart (Novolog) 0 unit SC [facility] PRN Reason: Protocol Last Admin: 10/13/16 17:30 Dose: Not Given Insulin Glargine (Lantus) 12 unit SC [facility] Last Admin: 10/12/16 22:37 Dose: 12 units Losartan Potassium (Cozaar) 50 mg PO DAILY [facility] Last Admin: 10/13/16 09:54 Dose: 50 mg Metformin HCl (Glucophage) 1,000 mg PO BID [facility] Last Admin: 10/13/16 09:54 Dose: 1,000 mg Rosuvastatin Calcium (Crestor) 20 mg PO [facility] Last Admin: 10/12/16 22:37 Dose: 20 mg - Labs Labs: 10/10/16 11:28 10/10/16 11:28 - Constitutional Appears: Non-toxic, No Acute Distress - Head Exam Head Exam: ATRAUMATIC, NORMAL INSPECTION, NORMOCEPHALIC - Eye Exam Eye Exam: EOMI, Normal appearance Pupil Exam: NORMAL ACCOMODATION - ENT Exam ENT Exam: Mucous Membranes Moist, Normal Exam - Neck Exam Neck Exam: Normal Inspection - Respiratory Exam Respiratory Exam: Clear to Ausculation Bilateral, NORMAL BREATHING PATTERN - Cardiovascular Exam Cardiovascular Exam: REGULAR RHYTHM, +S1, +S2 - GI/Abdominal Exam GI & Abdominal Exam: Soft, Normal Bowel Sounds - Rectal Exam Rectal Exam: NORMAL INSPECTION - Extremities Exam Extremities Exam: Normal Capillary Refill - Neurological Exam Neurological Exam: Abnormal Gait, Alert, Awake, CN II-XII Intact, Motor Sensory Deficit Assessment and Plan (1) Diabetes mellitus Status: Chronic (2) Hyperlipidemia Status: Chronic (3) Hypertension Status: Chronic (4) Ischemic stroke Status: Acute
[2016-10-13] MEDS: (Lantus) Insulin Glargine, Recombinant SC SCH (22:56)
[2016-10-14] MEDS: (Novolog) Insulin Aspart, Recombinant 100 u/ml 10 ml vial SC SCH ×3 (07:35→17:30)
[2016-10-14] MEDS: Enoxaparin 40 mg Syringe SC SCH (10:40)
[2016-10-14 16:30] VITALS: BP 146/64; PULSE 67; TEMP 98.7; O2SAT 96
--- NOTE | 2016-10-14 16:53 | CP.PCM.PN ---
Subjective - Date & Time of Evaluation Date of Evaluation: 10/14/16 Time of Evaluation: 16:52 - Subjective Subjective: DISCHARGE TODAY TO [facility] [facility], [place] PER DR. BEYER. PT STABLE. SW TO ARRANGE TRANSPORTATION TO [place]. PER DR. BEYER, PLACE ADMISSION IN REHAB UNDER DR. RAO. FACILITY TO NOTIFY HIM OF PT. Objective - Vital Signs/Intake and Output Vital Signs (last 24 hours): Temp Pulse Resp BP Pulse Ox 98.7 F 67 20 146/64 96 10/14/16 15:14 10/14/16 15:14 10/14/16 15:14 10/14/16 15:14 10/14/16 15:14 Intake and Output: 10/14/16 10/14/16 06:59 18:59 Intake Total 480 Output Total 650 Balance -170 - Medications Medications: Current Medications Amlodipine Besylate (Norvasc) 10 mg PO DAILY [facility] Last Admin: 10/14/16 10:40 Dose: 10 mg Aspirin (Ecotrin) 81 mg PO DAILY [facility] Last Admin: 10/14/16 10:40 Dose: 81 mg Clopidogrel Bisulfate (Plavix) 75 mg PO DAILY [facility] Last Admin: 10/14/16 10:40 Dose: 75 mg Docusate Sodium (Colace) 100 mg PO BID [facility] Last Admin: 10/14/16 10:39 Dose: 100 mg Enoxaparin Sodium (Lovenox) 40 mg SC DAILY [facility] Last Admin: 10/14/16 10:40 Dose: 40 mg Insulin Aspart (Novolog) 0 unit SC [facility] PRN Reason: Protocol Last Admin: 10/14/16 12:00 Dose: 3 unit Insulin Glargine (Lantus) 12 unit SC [facility] Last Admin: 10/13/16 22:56 Dose: 12 units Losartan Potassium (Cozaar) 50 mg PO DAILY [facility] Last Admin: 10/14/16 10:39 Dose: 50 mg Metformin HCl (Glucophage) 1,000 mg PO BID [facility] Last Admin: 10/14/16 10:40 Dose: 1,000 mg Rosuvastatin Calcium (Crestor) 20 mg PO HS [facility] Last Admin: 10/13/16 22:49 Dose: 20 mg - Labs Labs: 10/10/16 11:28 10/10/16 11:28
--- NOTE | 2016-10-14 22:14 | CP.PCM.DIS ---
Provider - Provider Date of Admission: 10/07/16 21:33 Attending physician: Preston Craft MD Diagnosis - Discharge Diagnosis (1) Diabetes mellitus Status: Chronic Priority: Medium (2) Hyperlipidemia Status: Chronic Priority: High (3) Hypertension Status: Chronic Priority: Medium (4) Ischemic stroke Status: Acute Priority: High Hospital Course - Lab Results Lab Results: Micro Results 10/07/16 23:30 Blood Blood Culture - Final NO GROWTH AFTER 5 DAYS 10/07/16 23:30 Blood Gram Stain - Final TEST NOT PERFORMED 10/07/16 23:30 Blood Blood Culture - Final NO GROWTH AFTER 5 DAYS 10/07/16 23:30 Blood Gram Stain - Final TEST NOT PERFORMED Most Recent Lab Values WBC 11.4 K/uL (4.8-10.8) H 10/10/16 11:28 RBC 4.82 Mil/uL (3.80-5.20) 10/10/16 11:28 Hgb 12.6 g/dL (11.0-16.0) 10/10/16 11:28 Hct 39.5 % (34.0-47.0) 10/10/16 11:28 MCV 81.9 fL (81.0-99.0) 10/10/16 11:28 MCH 26.1 pg (27.0-31.0) L 10/10/16 11:28 MCHC 31.9 g/dL (33.0-37.0) L 10/10/16 11:28 RDW 14.4 % (11.5-14.5) 10/10/16 11:28 Plt Count 375 K/uL (130-400) 10/10/16 11:28 MPV 9.6 fL (7.2-11.7) 10/10/16 11:28 Neut % (Auto) 73.4 % (50.0-75.0) 10/10/16 11:28 Lymph % (Auto) 19.2 % (20.0-40.0) L 10/10/16 11:28 [place] % (Auto) 5.0 % (0.0-10.0) 10/10/16 11:28 Eos % (Auto) 1.8 % (0.0-4.0) 10/10/16 11:28 Baso % (Auto) 0.6 % (0.0-2.0) 10/10/16 11:28 Neut # 8.4 K/uL (1.8-7.0) H 10/10/16 11:28 Lymph # 2.2 K/uL (1.0-4.3) 10/10/16 11:28 [place] # 0.6 K/uL (0.0-0.8) 10/10/16 11:28 Eos # 0.2 K/uL (0.0-0.7) 10/10/16 11:28 Baso # 0.1 K/uL (0.0-0.2) 10/10/16 11:28 Sodium 137 mmol/L (132-148) 10/10/16 11:28 Potassium 4.3 mmol/L (3.6-5.2) 10/10/16 11:28 Chloride 96 mmol/L (98-107) L 10/10/16 11:28 Carbon Dioxide 30 mmol/L (22-30) 10/10/16 11:28 Anion Gap 15 (10-20) 10/10/16 11:28 BUN 15 mg/dL (7-17) 10/10/16 11:28 Creatinine 1.2 MG/DL (0.7-1.2) 10/10/16 11:28 Est GFR ( Amer) 54 10/10/16 11:28 Est GFR (Non-Af Amer) 45 10/10/16 11:28 POC Glucose (mg/dL) 208 mg/dL (65-110) H 10/14/16 16:59 Random Glucose 346 mg/dL (65-105) H 10/10/16 11:28 Hemoglobin A1c 12.9 % (4.2-6.5) H 10/09/16 07:58 Calcium 9.6 mg/dl (8.6-10.4) 10/10/16 11:28 Total Bilirubin 0.7 mg/dL (0.2-1.3) 10/07/16 20:00 AST 22 U/L (14-36) 10/07/16 20:00 ALT 21 U/L (9-52) 10/07/16 20:00 Alkaline Phosphatase 108 U/L (38-126) 10/07/16 20:00 Total Protein 7.7 g/dL (6.3-8.3) 10/07/16 20:00 Albumin 4.1 g/dL (3.5-5.0) 10/07/16 20:00 Globulin 3.6 gm/dL (2.2-3.9) 10/07/16 20:00 Albumin/Globulin Ratio 1.1 (1.0-2.1) 10/07/16 20:00 Triglycerides 85 mg/dL (0-149) 10/09/16 07:58 Cholesterol 147 mg/dL (0-199) 10/09/16 07:58 LDL Cholesterol Direct 85 mg/dL (0-129) 10/09/16 07:58 HDL Cholesterol 42 mg/dL (30-70) 10/09/16 07:58 Urine Color Straw (YELLOW) 10/08/16 00:46 Urine Clarity Clear (Clear) 10/08/16 00:46 Urine pH 7.0 (5.0-8.0) 10/08/16 00:46 Ur Specific [place] 1.011 (1.003-1.030) 10/08/16 00:46 Urine Protein 1+ mg/dL (NEGATIVE) H 10/08/16 00:46 Urine Glucose (UA) 3+ mg/dL (Normal) H 10/08/16 00:46 Urine Ketones Negative mg/dL (NEGATIVE) 10/08/16 00:46 Urine Blood Negative (NEGATIVE) 10/08/16 00:46 Urine Nitrate Negative (NEGATIVE) 10/08/16 00:46 Urine Bilirubin Negative (NEGATIVE) 10/08/16 00:46 Urine Urobilinogen Normal mg/dL (0.2-1.0) 10/08/16 00:46 Ur Leukocyte Esterase Neg Franck/uL (Negative) 10/08/16 00:46 Urine WBC (Auto) < 1 /hpf (0-5) 10/08/16 00:46 Urine RBC (Auto) < 1 /hpf (0-3) 10/08/16 00:46 Ur Squamous Epith Cells 1 /hpf (0-5) 10/08/16 00:46 - Hospital Course Hospital Course: 65 y/o hf with new onset aphasia, and she was found to have cva, and she is on diet after swallow eval Discharge Exam - Head Exam Head Exam: ATRAUMATIC, NORMAL INSPECTION, NORMOCEPHALIC - Eye Exam Eye Exam: EOMI, Normal appearance, PERRL Pupil Exam: NORMAL ACCOMODATION - ENT Exam ENT Exam: Mucous Membranes Moist, Normal Exam, Normal Oropharynx, TM's Normal Bilaterally - Neck Exam Neck exam: Normal Inspection - Respiratory Exam Respiratory Exam: Clear to PA & Lateral, NORMAL BREATHING PATTERN - Cardiovascular Exam Cardiovascular Exam: REGULAR RHYTHM, +S1, +S2 - GI/Abdominal Exam GI & Abdominal Exam: Normal Bowel Sounds, Unremarkable - Rectal Exam Rectal Exam: NORMAL INSPECTION - Back Exam Back exam: NORMAL INSPECTION - Neurological Exam Neurological exam: Alert, CN II-XII Intact, Motor Sensory Deficit - Psychiatric Exam Psychiatric exam: Flat Affect - Skin Skin Exam: Intact Discharge Plan - Follow Up Plan Condition: STABLE Disposition: HOME/ ROUTINE Instructions: Ischemic Stroke (DC), Hypertension (DC), Hyperlipidemia (DC), Stroke (DC) Additional Instructions: PER DR. CRAFT, PLACE UNDER THE SERVICE OF DR. MILLER---CALL DR. MILLER UPON ARRIVAL AND NOTIFY OF PATIENT. CONTINUE MEDICATIONS PER MED REC. CHANGES PER DR. MILLER. PHYSICAL THERAPY TOLERATED. Referrals: Ray Jose MD [Staff Provider] - Preston Craft MD [Staff Provider] - Tabby Miller MD [Medical Doctor] -
== END 2016-10-14 20:15 | disposition home or self-care (01) | DRG 65 ==
LOC: C.ER 18:48 → C.9E 21:33 → C.9I 10-08 06:45 → C.9E 10-08 08:14 → C.6T 10-08 09:48
PROVIDERS: ADMIT Internal Medicine; ATTEND Internal Medicine
DX: I63.9 Cerebral infarction, unspecified (principal); I69.351 Hemiplegia and hemiparesis following cerebral infarction affecting right dominant side; R47.01 Aphasia; R47.81 Slurred speech; I10 Essential (primary) hypertension; E11.9 Type 2 diabetes mellitus without complications; R13.10 Dysphagia, unspecified; E78.5 Hyperlipidemia, unspecified; E78.00 Pure hypercholesterolemia, unspecified; H53.2 Diplopia; Z97.0 Presence of artificial eye; Z79.82 Long term (current) use of aspirin; Z79.02 Long term (current) use of antithrombotics/antiplatelets

== ENCOUNTER 2017-08-22 21:06 | Emergency (ER) | payer MEDICARE, OTHER ==
[2017-08-22 21:06] VITALS: BMI 23.6
[2017-08-22 21:23] VITALS: PULSE 86; RESP 18; TEMP 98.7; O2SAT 99
[2017-08-22] MEDS ORDERED: (Novolin R) Insulin Human Regular 100 units/ml vial IV STA (21:38)
[2017-08-22] MEDS ORDERED: Sodium Chloride 0.9% 1,000 ML IV SCH (21:45)
[2017-08-22] MEDS ORDERED: (Novolin R) Insulin Human Regular 100 units/ml vial ONE (21:52)
[2017-08-22 22:05] LABS: BASO # 0.1 K/uL (0.0-0.2); BASO % 0.7 % (0.0-2.0); EOS # 0.1 K/uL (0.0-0.7); HEMOGLOBIN 12.5 g/dL (11.0-16.0); LYMPH # 2.2 K/uL (1.0-4.3); LYMPH % 19.8 % (20.0-40.0); MEAN CELL VOLUME 82.9 fL (81.0-99.0); MEAN CORPUSCULAR HEMOGLOBIN 26.4 pg (27.0-31.0); MEAN CORPUSCULAR HGB CONC 31.9 g/dL (33.0-37.0); MEAN PLATELET VOLUME 10.1 fL (7.2-11.7); MONO # 0.6 K/uL (0.0-0.8); MONO % 5.5 % (0.0-10.0); NEUT # 8.2 K/uL (1.8-7.0); RBC 4.73 Mil/uL (3.80-5.20); RED CELL DISTRIBUTION WIDTH 15.4 % (11.5-14.5); WHITE BLOOD COUNT 11.2 K/uL (4.8-10.8)
[2017-08-22 22:28] LABS: ALB/GLOB RATIO 1.2 (1.0-2.1); ALBUMIN 4.4 g/dL (3.5-5.0); CALCIUM 9.5 mg/dl (8.6-10.4)
[2017-08-22 22:33] LABS: TROPONIN I 0.035 ng/mL (0.00-0.120)
[2017-08-23 00:01] VITALS: BP 180/92
--- NOTE | 2017-08-23 01:34 | C.PDOC ---
History Of Present Illness 66 year old female presents to the ER with a complaint of feeling dizzy today after having an argument with a family member. Currently patient has no complaints. Denies chest pain, SOB, fever, or chills. Patient has a Hx of HTN and diabetes, she has not yet taken her evening blood pressure medication. Chief Complaint (Nursing): Dizziness/Lightheaded History Per: Patient History/Exam Limitations: no limitations Onset/Duration Of Symptoms: Hrs Current Symptoms Are (Timing): Gone Seizure Or Post-ictal Symptoms: None Fall Associated With With Symptoms: No Recent travel outside of the [place]: No Past Medical History Reviewed: Historical Data, Nursing Documentation, Vital Signs Vital Signs: Last Vital Signs Temp 98.7 F 08/22/17 21: Pulse 86 08/22/17 21: Resp 18 08/22/17 21: BP 180/92 H 08/23/17 00:01 Pulse Ox 99 08/23/17 01:40 - Medical History PMH: HTN, Hypercholesterolemia Surgical History: Appendectomy - [facility] Procedures EXERCISE TREATMENT OF MUSCULOSK WHOLE USING ASSIST EQUIPMENT (10/14/16) HOME MANAGEMENT TREATMENT USING ASSIST EQUIPMENT (10/14/16) MOTOR SPEECH TREATMENT (10/14/16) Family History: States: Unknown Family Hx - Social History Hx Alcohol Use: No Hx Substance Use: No - Immunization History Hx Tetanus Toxoid Vaccination: Yes Hx Influenza Vaccination: No Hx Pneumococcal Vaccination: No Review Of Systems Constitutional: Negative for: Fever, Chills Cardiovascular: Negative for: Chest Pain, Palpitations Respiratory: Negative for: Cough, Shortness of Breath Gastrointestinal: Negative for: Nausea, Vomiting Neurological: Positive for: Dizziness Physical Exam - Physical Exam Appears: Non-toxic Skin: Normal Color, Warm, Dry Head: Atraumatic, Normacephalic Eye(s): bilateral: Normal Inspection, PERRL, EOMI Oral Mucosa: Moist Neck: Normal, Supple Chest: Symmetrical, No Tenderness Cardiovascular: Rhythm Regular Respiratory: Normal Breath Sounds, No Rales, No Rhonchi, No Wheezing Gastrointestinal/Abdominal: Soft, No Tenderness Extremity: Normal ROM (x4) Neurological/Psych: Oriented x3, Normal Speech, Normal Motor, Normal Sensation Gait: Steady ED Course And Treatment - Laboratory Results Result Diagrams: 08/22/17 21:54 08/22/17 21:54 ECG: Interpreted By Me, Viewed By Me ECG Rhythm: Sinus Rhythm Interpretation Of ECG: Left axis deviation Rate From EC O2 Sat by Pulse Oximetry: 99 (Room air) Pulse Ox Interpretation: Normal Progress Note: Blood work, CXR, and EKG ordered. fluids and insulin administered. Disposition - Disposition Referrals: Dre Kunz, [Non-Staff] - Non [facility] Provider, [Primary Care Provider] - Disposition: HOME/ ROUTINE Disposition Time: 23:05 Condition: IMPROVED Additional Instructions: CHRISSY ANDINO, thank you for letting us take care of you today. Your provider was Bjorn Goldman DO. The emergency medical care you received today was directed at your acute symptoms. If you were prescribed any medication, please fill it and take as directed. It may take several days for your symptoms to resolve. Return to the Emergency Department if your symptoms worsen, do not improve, or if you have any other problems. Please contact your doctor or call one of the physicians/clinics you have been referred to that are listed on the Patient Visit Information form that is included in your discharge packet. Bring any paperwork you were given at discharge with you along with any medications you are taking to your follow up visit. Our treatment cannot replace ongoing medical care by a primary care provider outside of the emergency department. Thank you for allowing the [facility] team to be part of your care today. Take your evening blood pressure medication when you get home. Follow up with your primary care doctor in 2-3 days for re-evaluation and further management. CHRISSY ANDINO eboni por dejarnos atenderlo leonora. [place]ner proveedor fue Bjorn Goldman DO. La atencin mdica de emergencia que recibi hoy estaba dirigida a petra sntomas agudos. Si le prescribieron algn medicamento, llnelo y tome seg n las indicaciones. Petra sntomas pueden tardar varios mariscal en resolverse. Regrese al Departamento de Emergencia si petra sntomas empeoran, no mejoran o si tiene algn otro problema. Comunquese con faulkner mdico o llame a benito de los mdicos / clnicas a los que valdez sido referido que figura en el formulario de Informacin de visita del paciente que se incluye en faulkner paquete de michelle. Traiga todos los documentos que recibi al momento del michelle junto con los medicamentos que est tomando en faulkner visita de seguimiento. Nuestro tratamiento no puede reemplazar la atencin mdica en curso por un proveedor de atencin primaria fuera del departamento de emergencia. Eboni por permitir que el equipo de [facility] sea parte de faulkner cuidado hoy. [place] faulkner medicamento para la presin arterial al anochecer cuando llegue a casa. Aura un seguimiento con faulkner mdico de atencin primaria en 2-3 mariscal para mary carmen nueva evaluacin y administracin adicional. Instructions: Hyperglycemia, Adult (DC) Forms: Gen Discharge Inst [employer] (Dominican) Print Language: HEBREW - Clinical Impression Clinical Impression: Hyperglycemia - Scribe Statement The provider has reviewed the documentation as recorded by the Scribe Ramon Garsia All medical record entries made by the Scribe were at my direction and personally dictated by me. I have reviewed the chart and agree that the record accurately reflects my personal performance of the history, physical exam, medical decision making, and the department course for this patient. I have also personally directed, reviewed, and agree with the discharge instructions and disposition.
--- NOTE | 2017-08-23 12:04 | RAD ---
PROCEDURE: CHEST RADIOGRAPH, 1 VIEW HISTORY: chest pain COMPARISON: Comparison chest dated 10/07/2016. FINDINGS: LUNGS: Poor inspiration with low lung volumes, crowded bronchovascular markings and mild bibasilar atelectasis PLEURA: No pneumothorax or pleural fluid seen. CARDIOVASCULAR: Cardiomegaly. OSSEOUS STRUCTURES: No significant abnormalities. VISUALIZED UPPER ABDOMEN: Normal. OTHER FINDINGS: None. IMPRESSION: Poor inspiration with low lung volumes, crowded bronchovascular markings and mild bibasilar atelectasis
--- NOTE | 2017-08-25 18:07 | CARD ---
APPROVED REPORT EKG Measurement Heart [id number] CT [id number] <Conclusion> Normal sinus rhythm Nonspecific ST / T wave abnormality. Abnormal ECG
== END 2017-08-23 00:02 | disposition home or self-care (01) ==
LOC: SUPCPDRO 21:06 → C.ER 21:06
DX: E11.65 Type 2 diabetes mellitus with hyperglycemia (principal)
CPT/HCPCS: 71045; 80053; 82948; 84484; 85025; 93005; 96361; 96374; 99285; J7030

== ENCOUNTER 2017-09-09 16:55 | Emergency (ER) | payer MEDICARE, MEDICAID ==
[2017-09-09 16:57] VITALS: BMI 23.6
--- NOTE | 2017-09-09 17:27 | C.PDOC ---
History Of Present Illness 66 year old female, whose PMHx includes Hypertension, Diabetes and previous stroke, is sent by her PMD for evaluation after patient was reportedly found hyperglycemic and hypertensive earlier today. Patient denies any complaints at this time. Time Seen by Provider: 09/09/17 17:05 Chief Complaint (Nursing): Medical Clearance History Per: Patient History/Exam Limitations: no limitations Onset/Duration Of Symptoms: Hrs Current Symptoms Are (Timing): Better Additional History Per: Patient Past Medical History Reviewed: Historical Data, Nursing Documentation, Vital Signs Vital Signs: Last Vital Signs Temp 98 F 09/09/17 17:09 Pulse 84 09/09/17 21:27 Resp 16 09/09/17 21:27 BP 161/44 H 09/09/17 21:27 Pulse Ox 96 09/09/17 21:27 - Medical History PMH: HTN, Hypercholesterolemia Denies: HIV Surgical History: Appendectomy - [facility] Procedures EXERCISE TREATMENT OF MUSCULOSK WHOLE USING ASSIST EQUIPMENT (10/14/16) HOME MANAGEMENT TREATMENT USING ASSIST EQUIPMENT (10/14/16) MOTOR SPEECH TREATMENT (10/14/16) Family History: States: Unknown Family Hx - Social History Hx Alcohol Use: No Hx Substance Use: No - Immunization History Hx Tetanus Toxoid Vaccination: Yes Hx Influenza Vaccination: No Hx Pneumococcal Vaccination: No Review Of Systems Constitutional: Positive for: Other (hypertension and hyperglycemia ) Physical Exam - Physical Exam Appears: Non-toxic, No Acute Distress Skin: Normal Color, Warm, Dry Head: Atraumatic, Normacephalic Eye(s): bilateral: Normal Inspection Oral Mucosa: Moist Neck: Supple Chest: Symmetrical, No Deformity, No Tenderness Cardiovascular: Rhythm Regular, No Murmur Respiratory: Normal Breath Sounds, No Rales, No Rhonchi, No Wheezing Extremity: Normal ROM, Capillary Refill (less than 2 seconds ) Neurological/Psych: Oriented x3, Normal Speech, Normal Cognition ED Course And Treatment - Laboratory Results Result Diagrams: 09/09/17 18:03 09/09/17 18:03 O2 Sat by Pulse Oximetry: 97 (on RA) Pulse Ox Interpretation: Normal Medical Decision Making Medical Decision Making: ro htn urgency emergnecy, ro dka Progress: Bloodwork, urinalysis, EKG ordered and reviewed. Apresoline IVP and IV Fluids given. labs neg. bicarb 26 no e/o of dka.mildleukocytosis baseline, no cardio pulm complaints urine treated. b/p improved. no other complaints advise outpt fu Disposition - Disposition Referrals: [facility] [Outside] [facility] [Outside] Disposition: HOME/ ROUTINE Disposition Time: 10:00 Condition: STABLE Additional Instructions: please follow up with your doctor/clinic. discuss all lab tests and results with your doctor. you may need repeat and additional tests as an outpatient. return to er with worsening symptoms or concerns Prescriptions: Cefpodoxime [Vantin] 100 mg PO BID #14 tab Instructions: Urinary Tract Infections in Adults, Hyperglycemia, Adult, High Blood Pressure (DC), Complete Blood Count With Differential Forms: [employer] (Samoan) Print Language: BULGARIAN - Clinical Impression Clinical Impression: Hyperglycemia, Hypertension, UTI (urinary tract infection) - Scribe Statement The provider has reviewed the documentation as recorded by the Scribe (Katya Post) Provider Attestation: All medical record entries made by the Scribe were at my direction and personally dictated by me. I have reviewed the chart and agree that the record accurately reflects my personal performance of the history, physical exam, medical decision making, and the department course for this patient. I have also personally directed, reviewed, and agree with the discharge instructions and disposition.
[2017-09-09] MEDS ORDERED: Sodium Chloride 0.9% 500 ML IV ONE ×2 (17:28→17:56)
[2017-09-09 18:21] LABS: BASO # 0.1 K/uL (0.0-0.2); BASO % 0.5 % (0.0-2.0); EOS # 0.1 K/uL (0.0-0.7); EOS % 0.8 % (0.0-4.0); HEMOGLOBIN 12.2 g/dL (11.0-16.0); LYMPH % 16.2 % (20.0-40.0); MEAN CELL VOLUME 83.4 fL (81.0-99.0); MEAN CORPUSCULAR HEMOGLOBIN 26.3 pg (27.0-31.0); MEAN CORPUSCULAR HGB CONC 31.6 g/dL (33.0-37.0); MEAN PLATELET VOLUME 9.8 fL (7.2-11.7); MONO # 0.5 K/uL (0.0-0.8); MONO % 4.3 % (0.0-10.0); NEUT # 9.8 K/uL (1.8-7.0); NEUT % 78.2 % (50.0-75.0); RBC 4.64 Mil/uL (3.80-5.20); RED CELL DISTRIBUTION WIDTH 14.9 % (11.5-14.5); WHITE BLOOD COUNT 12.5 K/uL (4.8-10.8)
[2017-09-09 18:40] LABS: ALB/GLOB RATIO 1.2 (1.0-2.1); ALBUMIN 3.9 g/dL (3.5-5.0); ALT/SGPT 11 U/L (9-52); AST/SGOT 21 U/L (14-36); BLOOD UREA NITROGEN 22 mg/dL (7-17); CALCIUM 9.4 mg/dl (8.6-10.4); GFR AFRICAN-AMERICAN > 60; GFR NON-AFRICAN AMERICAN 55
[2017-09-09] MEDS ORDERED: (Novolin R) Insulin Human Regular 100 units/ml vial IV STA (19:11)
[2017-09-09] MEDS ORDERED: (Novolin R) Insulin Human Regular 100 units/ml vial ONE (19:35)
[2017-09-09 20:13] LABS: SQUAMOUS EPITHIAL 7 /hpf (0-5); URINE BILIRUBIN NEGATIVE (NEGATIVE); URINE BLOOD NEGATIVE (NEGATIVE); URINE CLARITY Clear (Clear); URINE COLOR Straw (YELLOW); URINE GLUCOSE (UA) 3+ mg/dL (Normal); URINE LEUKOCYTE ESTERASE 1+ Leu/uL (Negative); URINE PROTEIN 1+ mg/dL (NEGATIVE); URINE UROBILINOGEN NORMAL mg/dL (0.2-1.0)
[2017-09-09] MEDS ORDERED: cefTRIAXone IV 1 gm in Dextros 0 ML IVPB ONE (20:24)
[2017-09-09 21:27] VITALS: RESP 16
[2017-09-09 22:50] VITALS: BP 160/75; PULSE 86; TEMP 98.4; O2SAT 100
== END 2017-09-09 22:50 | disposition home or self-care (01) ==
LOC: C.ER 16:55
DX: N39.0 Urinary tract infection, site not specified (principal); I10 Essential (primary) hypertension; E11.65 Type 2 diabetes mellitus with hyperglycemia; E78.00 Pure hypercholesterolemia, unspecified
CPT/HCPCS: 80053; 81001; 82948; 84484; 85025; 85610; 85730; 96365; 96375; 99284; J0360; J0696; J7040

== ENCOUNTER 2018-05-30 11:06 | Inpatient (IN) | payer MEDICARE, MEDICAID ==
[2018-05-30 11:07] VITALS: BMI 23.6
[2018-05-30] MEDS ORDERED: Sodium Chloride 0.9% 500 ML IV ONE (12:22)
--- NOTE | 2018-05-30 12:25 | C.PDOC ---
History Of Present Illness 67 y/o female, with history of diabetes, hypertension, and remote history of stroke, presents to ED with complaints of abdominal pain since yesterday, associated with nausea and vomiting x1. Patient denies any fever, chills, or constipation. Time Seen by Provider: 05/30/18 12:08 Chief Complaint (Nursing): Abdominal Pain History Per: Patient History/Exam Limitations: no limitations Onset/Duration Of Symptoms: Days Current Symptoms Are (Timing): Still Present Past Medical History Reviewed: Historical Data, Nursing Documentation, Vital Signs Vital Signs: Last Vital Signs Temp 98.0 F 05/30/18 11:21 Pulse 95 H 05/30/18 11:21 Resp 24 05/30/18 11:21 BP 176/70 H 05/30/18 11:21 Pulse Ox 95 05/30/18 11:21 - Medical History PMH: HTN, Hypercholesterolemia Denies: HIV Surgical History: Appendectomy - [facility] Procedures EXERCISE TREATMENT OF MUSCULOSK WHOLE USING ASSIST EQUIPMENT (10/14/16) HOME MANAGEMENT TREATMENT USING ASSIST EQUIPMENT (10/14/16) MOTOR SPEECH TREATMENT (10/14/16) Family History: States: No Known Family Hx - Social History Hx Alcohol Use: No Hx Substance Use: No - Immunization History Hx Tetanus Toxoid Vaccination: Yes Hx Influenza Vaccination: No Hx Pneumococcal Vaccination: No Review Of Systems Except As Marked, All Systems Reviewed And Found Negative. Constitutional: Negative for: Fever, Chills Gastrointestinal: Positive for: Nausea, Vomiting, Abdominal Pain. Negative for: Diarrhea, Constipation Genitourinary: Negative for: Dysuria, Hematuria Physical Exam - Physical Exam Appears: Non-toxic, No Acute Distress, Unkempt Skin: Warm, Dry Head: Normacephalic, Other (scar to middle of face secondary to previous fall) Eye(s): right: Other (has glass eye) Oral Mucosa: Moist, Other (foul breath) Teeth: Other (Poor Dentition) Neck: Supple Cardiovascular: Rhythm Regular, No Murmur Respiratory: Normal Breath Sounds, No Rales, No Rhonchi, No Wheezing Gastrointestinal/Abdominal: Soft, Tenderness (to LUQ and RUQ), Other (obese) Extremity: Bilateral: Atraumatic, Normal ROM Neurological/Psych: Normal Speech, Other (Awake and alert) ED Course And Treatment - Laboratory Results Result Diagrams: 05/30/18 12:15 05/30/18 12:15 ECG: Interpreted By Me, Viewed By Me ECG Rhythm: Sinus Rhythm Interpretation Of ECG: No ST elevation or depression. Rate From EC O2 Sat by Pulse Oximetry: 95 (RA) Pulse Ox Interpretation: Normal - Other Rad Obstructive Series X-Ray: Read By Radiologist Interpretation: FINDINGS: CHEST: Lungs: No evidence of focal infiltrate or consolidation in the lungs. There is elevation of the right hemidiaphragm and the right lung appears smaller than the left. Cardiovascular: Normal size heart. No pulmonary vascular congestion. No aortic atherosclerotic calcification present. Pleura: No pleural fluid. No pneumothorax. Other findings: None. ABDOMEN AND PELVIS: Bowel: Mild constipation is noted, otherwise unremarkable bowel gas pattern. No evidence of mechanical obstruction. Free air: None. Bones: Unremarkable. Other findings: None. IMPRESSION: Elevation of the right hemidiaphragm. The right lung appears smaller than the left. Mild constipation. - CT Scan/US Abd/Pel CT Other Rad Studies (CT/US): Read By Radiologist, Radiology Report Reviewed CT/US Interpretation: FINDINGS: LOWER THORAX: Small opacities at the lung bases likely atelectasis. The heart is enlarged. LIVER: No evidence of acute pathology or suspicious mass in the liver noted in this noncontrast study. GALLBLADDER AND BILE DUCTS: The gallbladder is markedly distended. Suspicious for gallbladder wall thickening and pericholecystic inflammatory changes. The possibility of acute cholecystitis should be excluded. The common bile duct is not dilated. PANCREAS: Severe atrophy changes are noted in the pancreas associated with fatty replacement. SPLEEN: Unremarkable. ADRENALS: Unremarkable. No mass. KIDNEYS AND URETERS: Unremarkable. No hydronephrosis. No solid mass. VASCULATURE: Unremarkable. No aortic aneurysm. Foci of atherosclerotic calcification noted in the abdominal aorta and iliac arteries. BOWEL: Unremarkable. No obstruction. No gross mural thickening. Mild constipation is noted. APPENDIX: No evidence of appendicitis. PERITONEUM: Unremarkable. No free fluid. No free air. LYMPH NODES: Unremarkable. No enlarged lymph nodes. BLADDER: Unremarkable. REPRODUCTIVE: Unremarkable. BONES: No acute fracture. OTHER FINDINGS: None. IMPRESSION: Findings suspicious for acute cholecystitis. If indicated further assessment by ultrasound may be obtained. Mild constipation. Medical Decision Making Medical Decision Making: Plan: --Abd/Pel CT --Labs --Obstructive XR --IV fluids --Urine Culture --UA Update: Patient had a white count of 30,000, possible sepsis case. Will work her up for sepsis. 14:[address] Gibson. Pending call back. Tried to contact Medicine telephone worker, no call back. Called Dr. Craft, no call back. Disposition Discussed With DrKaren: Bernard Post Counseled Patient/Family Regarding: Studies Performed, Diagnosis - Disposition Disposition: HOSPITALIZED Disposition Time: 15:45 Condition: SERIOUS - Clinical Impression Clinical Impression: Abdominal pain, Nausea, Cholecystitis - Scribe Statement The provider has reviewed the documentation as recorded by the Lyla Elaine Provider Attestation: All medical record entries made by the Lyla were at my direction and personally dictated by me. I have reviewed the chart and agree that the record accurately reflects my personal performance of the history, physical exam, medical decision making, and the department course for this patient. I have also personally directed, reviewed, and agree with the discharge instructions and d isposition. Decision To Admit - Pt Status Changed To: Hospital Disposition Of: Inpatient - Admit Certification Admit to Inpatient:: After my assessment, the patient will require hospitalization for at least two midnights. This is because of the severity of symptoms shown, intensity of services needed, and/or the medical risk in this patient being treated as an outpatient. - InPatient: Physician Admission Certification:: acute kleber with multiple comorbidities - . Bed Request Type: Regular Admitting Physician: Bernard Post Patient Diagnosis: Abdominal pain, Nausea, Cholecystitis
[2018-05-30 12:28] LABS: BASO # 0.1 K/uL (0.0-0.2); BASO % 0.2 % (0.0-2.0); EOS % 0.1 % (0.0-4.0); HEMOGLOBIN 11.8 g/dL (11.0-16.0); LYMPH # 1.2 K/uL (1.0-4.3); LYMPH % 3.7 % (20.0-40.0); MEAN CORPUSCULAR HEMOGLOBIN 25.9 pg (27.0-31.0); MEAN PLATELET VOLUME 10.4 fL (7.2-11.7); MONO # 1.2 K/uL (0.0-0.8); MONO % 3.8 % (0.0-10.0); NEUT # 28.9 K/uL (1.8-7.0); NEUT % 92.2 % (50.0-75.0); PLATELET COUNT 298 K/uL (130-400); RBC 4.57 Mil/uL (3.80-5.20); RED CELL DISTRIBUTION WIDTH 15.7 % (11.5-14.5)
[2018-05-30 12:32] LABS: ALB/GLOB RATIO 1.1 (1.0-2.1); ALBUMIN 4.1 g/dL (3.5-5.0); CALCIUM 9.8 mg/dl (8.6-10.4)
[2018-05-30 12:35] LABS: MEAN CELL VOLUME 80.7 fL (81.0-99.0); WHITE BLOOD COUNT 31.4 K/uL (4.8-10.8)
[2018-05-30 12:37] LABS: SQUAMOUS EPITHIAL < 1 /hpf (0-5); URINE BACTERIA RARE (<OCC); URINE BILIRUBIN NEGATIVE (NEGATIVE); URINE BLOOD 1+ (NEGATIVE); URINE CLARITY Hazy (Clear); URINE COLOR Amber (YELLOW); URINE GLUCOSE (UA) NORMAL (Normal); URINE HYALINE CAST 0-2 /lpf (0-2); URINE LEUKOCYTE ESTERASE NEG Leu/uL (Negative); URINE PROTEIN 2+ mg/dL (NEGATIVE)
[2018-05-30] MEDS ORDERED: Piperacill/Tazo 3.375gm in Dex 3.375 GM/50 ML BAG IVPB STA (12:56)
[2018-05-30] MEDS ORDERED: Vancomycin 1 gm/NS 200 ml 1 GM/200 ML BAG IVPB STA (12:56)
[2018-05-30 13:02] LABS: BANDS 5 % (0-2); LYMPHOCYTE 4 % (20-40); MONOCYTE 4 % (0-10); NEUTROPHIL 87 % (50-75); PLATELET ESTIMATE NORMAL (NORMAL); TOTAL CELLS COUNTED 100
[2018-05-30 13:03] LABS: ANISOCYTOSIS SLIGHT; HYPOCHROMIC SLIGHT; POLYCHROMIC SLIGHT
[2018-05-30 13:04] LABS: GIANT PLATELETS PRESENT; LARGE PLATELETS PRESENT
[2018-05-30] MEDS ORDERED: Piperacillin/Tazobact 3.375 gm 100 ML IVPB ONE (13:42)
[2018-05-30 13:43] LABS: INR 1.7
[2018-05-30 13:45] LABS: VENOUS BLOOD GAS BASE EXCESS -4.7 mmol/L (0.0-2.0); VENOUS BLOOD GAS PCO2 33 mmHg (40-60); VENOUS BLOOD GAS PO2 18 mm/Hg (30-55); VENOUS BLOOD PH 7.38 (7.32-7.43)
[2018-05-30 13:50] LABS: LIPASE < 10 U/L (23-300)
[2018-05-30 14:00] LABS: B-TYPE NATRIURETIC PEPTIDE 1660 pg/mL (0-900)
[2018-05-30] MEDS ORDERED: Vancomycin 1 GM 1 GM/250 ML BAG IVPB ONE (14:17)
--- NOTE | 2018-05-30 14:20 | CT ---
Date of service: 05/30/2018 PROCEDURE: CT Abdomen and Pelvis without intravenous contrast HISTORY: abd pain COMPARISON: None. TECHNIQUE: Axial and reformatted coronal and sagittal CT images of the abdomen and pelvis were obtained without IV or oral contrast administration.. Contrast dose: 0 Radiation dose: Total exam DLP = 990.07 mGy-cm. This CT exam was performed using one or more of the following dose reduction techniques: Automated exposure control, adjustment of the mA and/or kV according to patient size, and/or use of iterative reconstruction technique. FINDINGS: LOWER THORAX: Small opacities at the lung bases likely atelectasis. The heart is enlarged. LIVER: No evidence of acute pathology or suspicious mass in the liver noted in this noncontrast study. GALLBLADDER AND BILE DUCTS: The gallbladder is markedly distended. Suspicious for gallbladder wall thickening and pericholecystic inflammatory changes. The possibility of acute cholecystitis should be excluded. The common bile duct is not dilated. PANCREAS: Severe atrophy changes are noted in the pancreas associated with fatty replacement. SPLEEN: Unremarkable. ADRENALS: Unremarkable. No mass. KIDNEYS AND URETERS: Unremarkable. No hydronephrosis. No solid mass. VASCULATURE: Unremarkable. No aortic aneurysm. Foci of atherosclerotic calcification noted in the abdominal aorta and iliac arteries. BOWEL: Unremarkable. No obstruction. No gross mural thickening. Mild constipation is noted. APPENDIX: No evidence of appendicitis. PERITONEUM: Unremarkable. No free fluid. No free air. LYMPH NODES: Unremarkable. No enlarged lymph nodes. BLADDER: Unremarkable. REPRODUCTIVE: Unremarkable. BONES: No acute fracture. OTHER FINDINGS: None. IMPRESSION: Findings suspicious for acute cholecystitis. If indicated further assessment by ultrasound may be obtained. Mild constipation.
--- NOTE | 2018-05-30 14:26 | RAD ---
Date of service: 05/30/2018 PROCEDURE: Radiographs of the chest and abdomen (obstructive series) HISTORY: abd pain COMPARISON: No prior. TECHNIQUE: AP radiograph of the chest, with upright and supine radiographs of the abdomen. 3 views obtained. FINDINGS: CHEST: Lungs: No evidence of focal infiltrate or consolidation in the lungs. There is elevation of the right hemidiaphragm and the right lung appears smaller than the left. Cardiovascular: Normal size heart. No pulmonary vascular congestion. No aortic atherosclerotic calcification present Pleura: No pleural fluid. No pneumothorax. Other findings: None. ABDOMEN AND PELVIS: Bowel: Mild constipation is noted, otherwise unremarkable bowel gas pattern. No evidence of mechanical obstruction. Free air: None. Bones: Unremarkable. Other findings: None. IMPRESSION: Elevation of the right hemidiaphragm. The right lung appears smaller than the left. Mild constipation.
--- NOTE | 2018-05-30 15:51 | CP.PCM.CON ---
<Ivan Baires - Last Filed: 05/31/18 12:04> History of Present Illness - History of Present Illness History of Present Illness: General Surgery Consult Note for Dr. Dorsey Reason for consult: abdominal pain, sepsis, suspected cholecystitis 67F with PMH that includes DM, HTN, CVA present to [facility] for abdominal pain. Patient was seen and examined in the ED. Patient states that pain has been going on for one day. Patient reports associated nausea/vomiting at home. Patient states that this is the first time she has had this pain. She rates pain as moderate to severe. She describes it as constant and sharp located in RUQ. ABUS in ED revealed gb wall thickening, cholelithiasis (see full report). Eatng drinking aggravtes symptoms while nothing alleviates them. Admits subjective fev er/chills. Denies cp,SOB, diarrhea, constipation, urinary symptoms. 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) Other/Comment: h/o CVA 2003 - HEENT Hx HEENT Problems: Yes Other/Comment: RT EYE PROSTHESIS - ENDOCRINE/METABOLIC Hx Endocrine Disorders: Yes Hx Diabetes Mellitus Type 2: Yes - HEMATOLOGICAL/ONCOLOGICAL Hx Human Immunodeficiency Virus (HIV): No - MUSCULOSKELETAL/RHEUMATOLOGICAL Hx Falls: No - GASTROINTESTINAL Hx Constipation: Yes - PSYCHIATRIC Hx Substance Use: No - SURGICAL HISTORY Hx Appendectomy: Yes - ANESTHESIA Hx Anesthesia: Yes Hx Anesthesia Reactions: No Hx Malignant Hyperthermia: No Meds Allergies/Adverse Reactions: Allergies Allergy/AdvReac Type Severity Reaction Status Date / Time No Known Allergies Allergy Verified 05/30/18 11:27 Physical Exam - Constitutional Appears: No Acute Distress - Head Exam Head Exam: ATRAUMATIC, NORMOCEPHALIC - Eye Exam Eye Exam: EOMI, Normal appearance Pupil Exam: PERRL - ENT Exam ENT Exam: Mucous Membranes Dry - Neck Exam Neck exam: Positive for: Full Rom - Respiratory Exam Respiratory Exam: NORMAL BREATHING PATTERN - Cardiovascular Exam Cardiovascular Exam: REGULAR RHYTHM - GI/Abdominal Exam GI & Abdominal Exam: Normal Bowel Sounds, Soft, Tenderness (RUQ). absent: Distended, Firm, Guarding, Hernia, Rebound, Rigid - Extremities Exam Extremities exam: Positive for: normal capillary refill, pedal pulses present. Negative for: calf tenderness - Back Exam Back exam: absent: CVA tenderness (L), CVA tenderness (R) - Neurological Exam Neurological exam: Alert - Psychiatric Exam Psychiatric exam: Anxious - Skin Skin Exam: Dry, Intact, Warm Results - Vital Signs Recent Vital Signs: Last Vital Signs Temp 99.5 F 05/30/18 13:37 Pulse 88 05/30/18 13:37 Resp 20 05/30/18 13:37 BP 195/140 H 05/30/18 13:37 Pulse Ox 95 05/30/18 15:46 - Labs Result Diagrams: 05/30/18 12:15 05/30/18 12:15 Labs: Laboratory Results - last 24 hr 05/30/18 05/30/18 05/30/18 11:31 12:15 12:15 WBC 31.4 H D RBC 4.57 Hgb 11.8 Hct 36.9 MCV 80.7 L D MCH 25.9 L MCHC 32.0 L RDW 15.7 H Plt Count 298 MPV 10.4 Neut % (Auto) 92.2 H Lymph % (Auto) 3.7 L [place] % (Auto) 3.8 Eos % (Auto) 0.1 Baso % (Auto) 0.2 Neut # (Auto) 28.9 H Lymph # (Auto) 1.2 [place] # (Auto) 1.2 H Eos # (Auto) 0.0 Baso # (Auto) 0.1 Neutrophils % (Manual) 87 H Band Neutrophils % 5 H Lymphocytes % (Manual) 4 L Monocytes % (Manual) 4 Platelet Estimate Normal Large Platelets Present Giant Platelets Present Polychromasia Slight Hypochromasia (manual) Slight Anisocytosis (manual) Slight PT INR APTT pO2 VBG pH VBG pCO2 VBG HCO3 VBG Total CO2 VBG O2 Sat (Calc) VBG Base Excess VBG Potassium Glucose Lactate Sodium 139 Potassium 4.6 Chloride 102 Carbon Dioxide 27 Anion Gap 15 BUN 34 H Creatinine 1.5 H Est GFR ( Amer) 42 Est GFR (Non-Af Amer) 34 POC Glucose (mg/dL) 213 H Random Glucose 189 H D Calcium 9.8 Phosphorus Magnesium Total Bilirubin 1.6 H AST 234 H D ALT 84 H D Alkaline Phosphatase 203 H D Troponin I NT-Pro-B Natriuret Pep Total Protein 7.7 Albumin 4.1 Globulin 3.6 Albumin/Globulin Ratio 1.1 Lipase Venous Blood Potassium Urine Color Urine Clarity Urine pH Ur Specific [place] Urine Protein Urine Glucose (UA) Urine Ketones Urine Blood Urine Nitrate Urine Bilirubin Urine Urobilinogen Ur Leukocyte Esterase Urine WBC (Auto) Urine RBC (Auto) Ur Squamous Epith Cells Urine Bacteria Hyaline Casts 05/30/18 05/30/18 05/30/18 12:15 13:30 13:30 WBC RBC Hgb Hct MCV MCH MCHC RDW Plt Count MPV Neut % (Auto) Lymph % (Auto) [place] % (Auto) Eos % (Auto) Baso % (Auto) Neut # (Auto) Lymph # (Auto) [place] # (Auto) Eos # (Auto) Baso # (Auto) Neutrophils % (Manual) Band Neutrophils % Lymphocytes % (Manual) Monocytes % (Manual) Platelet Estimate Large Platelets Giant Platelets Polychromasia Hypochromasia (manual) Anisocytosis (manual) PT 19.0 H INR 1.7 APTT 31 pO2 VBG pH VBG pCO2 VBG HCO3 VBG Total CO2 VBG O2 Sat (Calc) VBG Base Excess VBG Potassium Glucose Lactate Sodium Potassium Chloride Carbon Dioxide Anion Gap BUN Creatinine Est GFR ( Amer) Est GFR (Non-Af Amer) POC Glucose (mg/dL) Random Glucose Calcium Phosphorus 1.9 L Magnesium 1.1 L Total Bilirubin AST ALT Alkaline Phosphatase Troponin I < 0.0120 NT-Pro-B Natriuret Pep 1660 H Total Protein Albumin Globulin Albumin/Globulin Ratio Lipase < 10 L Venous Blood Potassium Urine Color [place] Urine Clarity Hazy Urine pH 5.0 Ur Specific [place] 1.015 Urine Protein 2+ H Urine Glucose (UA) Normal Urine Ketones Negative Urine Blood 1+ H Urine Nitrate Negative Urine Bilirubin Negative Urine Urobilinogen 2.0 H Ur Leukocyte Esterase Neg Urine WBC (Auto) 2 Urine RBC (Auto) 1 Ur Squamous Epith Cells < 1 Urine Bacteria Rare Hyaline Casts 0-2 05/30/18 05/30/18 13:30 13:40 WBC RBC Hgb Hct MCV MCH MCHC RDW Plt Count MPV Neut % (Auto) Lymph % (Auto) [place] % (Auto) Eos % (Auto) Baso % (Auto) Neut # (Auto) Lymph # (Auto) [place] # (Auto) Eos # (Auto) Baso # (Auto) Neutrophils % (Manual) Band Neutrophils % Lymphocytes % (Manual) Monocytes % (Manual) Platelet Estimate Large Platelets Giant Platelets Polychromasia Hypochromasia (manual) Anisocytosis (manual) PT INR APTT pO2 18 L VBG pH 7.38 VBG pCO2 33 L VBG HCO3 19.3 VBG Total CO2 20.5 L VBG O2 Sat (Calc) 30.9 L VBG Base Excess -4.7 L VBG Potassium 2.7 L Glucose 120 H Lactate 1.0 Sodium 144.0 Potassium Chloride 119.0 H Carbon Dioxide Anion Gap BUN Creatinine Est GFR ( Amer) Est GFR (Non-Af Amer) POC Glucose (mg/dL) Random Glucose Calcium Phosphorus Magnesium Total Bilirubin AST ALT Alkaline Phosphatase Troponin I < 0.0120 NT-Pro-B Natriuret Pep Total Protein Albumin Globulin Albumin/Globulin Ratio Lipase Venous Blood Potassium 2.7 L Urine Color Urine Clarity Urine pH Ur Specific [place] Urine Protein Urine Glucose (UA) Urine Ketones Urine Blood Urine Nitrate Urine Bilirubin Urine Urobilinogen Ur Leukocyte Esterase Urine WBC (Auto) Urine RBC (Auto) Ur Squamous Epith Cells Urine Bacteria Hyaline Casts Assessment & Plan - Assessment and Plan (Free Text) Assessment: 67 F with sepsis, abdominal pain and cholelithiasis Plan: -NPO -light IVF -IV abx -Pain control -Anti-emetics PRN -Trend LFTs -ID consult, help appreciated -Possible OR 4/8 after patient's condition improves -Medical management as per primary -Discussed with Dr. Sunita Baires PGY2 - Date & Time Date: 05/30/18 Time: 20:00 <Anatoly Dorsey - Last Filed: 05/31/18 18:21> Meds - Medications Medications: Current Medications Dextrose (Dextrose 50% Inj) 0 ml IV STAT PRN; Protocol PRN Reason: Hypoglycemia Protocol Dextrose (Glutose 15) 0 gm PO ONCE PRN; Protocol PRN Reason: Hypoglycemia Protocol Glucagon (Glucagen Diagnostic Kit) 0 mg IM STAT PRN; Protocol PRN Reason: Hypoglycemia Protocol Vancomycin/Sodium Chloride (Vancomycin 1 Gm/Ns 200 Ml) 1 gm in 200 mls @ 133 mls/hr IVPB Q12H [facility]; Protocol Stop: 06/05/18 00:16 Last Admin: 05/31/18 12:48 Dose: 133 mls/hr Meropenem 1 gm/ Sodium (Chloride) 100 mls @ 100 mls/hr IVPB Q8H [facility]; Protocol Last Admin: 05/31/18 16:37 Dose: 100 mls/hr Lactated Ringer's (Lactated Ringer's) 1,000 mls @ 100 mls/hr IV .Q10H [facility] Last Admin: 05/31/18 16:37 Dose: Not Given Dextrose (Dextrose 5% In Water 1000 Ml) 1,000 mls @ 0 mls/hr IV .Q0M PRN; Protocol PRN Reason: Hypoglycemia Protocol Ibuprofen (Motrin Tab) 400 mg PO Q6H PRN PRN Reason: Fever >100.4 F Insulin Human Regular (Novolin R) 0 unit SC ACHS [facility]; Protocol Last Admin: 05/31/18 16:30 Dose: Not Given Losartan Potassium (Cozaar) 12.5 mg PO DAILY [facility] Last Admin: 05/31/18 11:00 Dose: Not Given Morphine Sulfate (Morphine) 2 mg IVP Q4 PRN PRN Reason: Pain, severe (8-10) Last Admin: 05/31/18 14:33 Dose: 2 mg Ondansetron HCl (Zofran Inj) 4 mg IVP Q4H PRN PRN Reason: Nausea/Vomiting Last Admin: 05/31/18 12:44 Dose: 4 mg Results - Vital Signs Recent Vital Signs: Last Vital Signs Temp 98.1 F 05/31/18 15:37 Pulse 84 05/31/18 15:37 Resp 20 05/31/18 15:37 BP 123/77 05/31/18 15:37 Pulse Ox 95 05/31/18 15:37 - Labs Result Diagrams: 05/31/18 08:15 05/31/18 08:15 Labs: Laboratory Results - last 24 hr 05/30/18 05/31/18 05/31/18 21:12 05:02 07:11 WBC RBC Hgb Hct MCV MCH MCHC RDW Plt Count MPV Neut % (Auto) Lymph % (Auto) [place] % (Auto) Eos % (Auto) Baso % (Auto) Neut # (Auto) Lymph # (Auto) [place] # (Auto) Eos # (Auto) Baso # (Auto) Neutrophils % (Manual) Band Neutrophils % Lymphocytes % (Manual) Monocytes % (Manual) Platelet Estimate Large Platelets Giant Platelets Polychromasia Hypochromasia (manual) Anisocytosis (manual) PT INR APTT Sodium Potassium Chloride Carbon Dioxide Anion Gap BUN Creatinine Est GFR ( Amer) Est GFR (Non-Af Amer) POC Glucose (mg/dL) 313 H 243 H 225 H Random Glucose Calcium Phosphorus Magnesium Total Bilirubin Direct Bilirubin GGT AST ALT Alkaline Phosphatase Total Protein Albumin Globulin Albumin/Globulin Ratio Hepatitis A IgM Ab Hep Bs Antigen Hep B Core IgM Ab Hepatitis C Antibody 05/31/18 05/31/18 05/31/18 08:15 08:15 08:15 WBC 23.4 H RBC 4.28 Hgb 11.2 Hct 34.5 MCV 80.6 L MCH 26.3 L MCHC 32.6 L RDW 15.9 H Plt Count 344 MPV 10.0 Neut % (Auto) 92.2 H Lymph % (Auto) 3.4 L [place] % (Auto) 4.1 Eos % (Auto) 0.1 Baso % (Auto) 0.2 Neut # (Auto) 21.6 H Lymph # (Auto) 0.8 L [place] # (Auto) 1.0 H Eos # (Auto) 0.0 Baso # (Auto) 0.0 Neutrophils % (Manual) 90 H Band Neutrophils % 1 Lymphocytes % (Manual) 5 L Monocytes % (Manual) 4 Platelet Estimate Normal Large Platelets Present Giant Platelets Present Polychromasia Slight Hypochromasia (manual) Slight Anisocytosis (manual) Slight PT 16.3 H INR 1.5 APTT 34 Sodium 140 Potassium 3.7 Chloride 106 Carbon Dioxide 26 Anion Gap 12 BUN 28 H Creatinine 1.6 H Est GFR ( Amer) 39 Est GFR (Non-Af Amer) 32 POC Glucose (mg/dL) Random Glucose 197 H Calcium 9.0 Phosphorus 3.9 Magnesium 3.1 H Total Bilirubin 2.5 H Direct Bilirubin GGT 96 H AST 204 H ALT 164 H D Alkaline Phosphatase 308 H D Total Protein 6.9 Albumin 3.5 Globulin 3.4 Albumin/Globulin Ratio 1.0 Hepatitis A IgM Ab Hep Bs Antigen Hep B Core IgM Ab Hepatitis C Antibody 05/31/18 05/31/18 05/31/18 08:15 08:15 11:29 WBC RBC Hgb Hct MCV MCH MCHC RDW Plt Count MPV Neut % (Auto) Lymph % (Auto) [place] % (Auto) Eos % (Auto) Baso % (Auto) Neut # (Auto) Lymph # (Auto) [place] # (Auto) Eos # (Auto) Baso # (Auto) Neutrophils % (Manual) Band Neutrophils % Lymphocytes % (Manual) Monocytes % (Manual) Platelet Estimate Large Platelets Giant Platelets Polychromasia Hypochromasia (manual) Anisocytosis (manual) PT INR APTT Sodium Potassium Chloride Carbon Dioxide Anion Gap BUN Creatinine Est GFR ( Amer) Est GFR (Non-Af Amer) POC Glucose (mg/dL) 197 H Random Glucose Calcium Phosphorus Magnesium Total Bilirubin Direct Bilirubin 2.3 H GGT AST ALT Alkaline Phosphatase Total Protein Albumin Globulin Albumin/Globulin Ratio Hepatitis A IgM Ab Negative Hep Bs Antigen Negative Hep B Core IgM Ab Negative Hepatitis C Antibody Negative 05/31/18 15:57 WBC RBC Hgb Hct MCV MCH MCHC RDW Plt Count MPV Neut % (Auto) Lymph % (Auto) [place] % (Auto) Eos % (Auto) Baso % (Auto) Neut # (Auto) Lymph # (Auto) [place] # (Auto) Eos # (Auto) Baso # (Auto) Neutrophils % (Manual) Band Neutrophils % Lymphocytes % (Manual) Monocytes % (Manual) Platelet Estimate Large Platelets Giant Platelets Polychromasia Hypochromasia (manual) Anisocytosis (manual) PT INR APTT Sodium Potassium Chloride Carbon Dioxide Anion Gap BUN Creatinine Est GFR ( Amer) Est GFR (Non-Af Amer) POC Glucose (mg/dL) 158 H Random Glucose Calcium Phosphorus Magnesium Total Bilirubin Direct Bilirubin GGT AST ALT Alkaline Phosphatase Total Protein Albumin Globulin Albumin/Globulin Ratio Hepatitis A IgM Ab Hep Bs Antigen Hep B Core IgM Ab Hepatitis C Antibody Attending/Attestation - Attestation I have personally seen and examined this patient.: Yes I have fully participated in the care of the patient.: Yes I have reviewed all pertinent clinical information: Yes Notes (Text): Pt was seen and examined at bedside Agree with above note and assessment Pt with Gallstone and RUQ Pain Abdomen: Soft, RUQ tenderness, ND Labs and Radiology reviewed Ass: Cholecystitis with Cholelithiasis with Severe Leucocytosis with elevated LFTs Plan : IV antibiotics ID consult MRCP in am Repeat Labs in am c.w current mx Plan d.w pt in detail Risk and benefit explained in detail.
--- NOTE | 2018-05-30 15:53 | US ---
Date of service: 05/30/2018 HISTORY: r/o kleber COMPARISON: Comparison is made with the previous same-day CT of the abdomen and pelvis. TECHNIQUE: Sonographic evaluation of the abdomen. FINDINGS: LIVER: Measures 12.5 cm. Heterogeneous increased echogenicity of the liver parenchyma. No mass. No intrahepatic bile duct dilatation. GALLBLADDER: Distended gallbladder contains low-level echoes and demonstrate diffuse wall thickening. The possibility of acute cholecystitis should be considered. COMMON BILE DUCT: Measures 4.5 mm. No stones. No dilatation. PANCREAS: The pancreas is obscured by overlying bowel gas. RIGHT KIDNEY: Measures 10 x 5.2 x 4.7cm. No evidence of hydronephrosis. Foci of calcification noted in the right kidney likely represent vascular calcification. The possibility of small nonobstructing renal calculi is not totally excluded. LEFT KIDNEY: Measures 9.7 x 4.6 x 4.8cm. There is a cyst seen at the midpole measures 1.3 x 1.1 x 1.4 centimeter. There is also small calcification noted in the left kidney likely vascular. SPLEEN: Normal in size and contour. No mass. AORTA: No aneurysmal dilatation. IVC: Unremarkable. OTHER FINDINGS: None. IMPRESSION: Distended gallbladder contains sludge and possible small gallstones associated with diffuse wall thickening. The possibility of acute cholecystitis should be considered. The common bile duct measures 4.5 millimeter. Small foci of calcification noted in both kidneys likely vascular. No evidence of hydronephrosis.
[2018-05-30] MEDS ORDERED: Sodium Chloride 0.9% 1,000 ML IV ONE (15:55)
[2018-05-30] MEDS ORDERED: Sodium Phosphate 15 MMOLE in Sodium Chloride 0.9% 250 ML IVPB ONE (16:48)
[2018-05-30] MEDS ORDERED: Piperacill/Tazo 3.375gm in Dex 3.375 GM/50 ML BAG IVPB SCH (17:00)
[2018-05-30 17:08] LABS: VENOUS BLOOD GAS BASE EXCESS 1.3 mmol/L (0.0-2.0); VENOUS BLOOD GAS PCO2 47 mmHg (40-60); VENOUS BLOOD GAS PO2 21 mm/Hg (30-55); VENOUS BLOOD PH 7.37 (7.32-7.43)
[2018-05-30] MEDS: (Novolin R) Insulin Human Regular 100 units/ml vial SC SCH ×2 (17:19→22:16)
[2018-05-30] MEDS: Magnesium Sulfate 1 gm in D5W 1 GM/100 ML BAG IVPB SCH ×5 (18:01→20:44)
[2018-05-30] MEDS: Meropenem 1 GM in Sodium Chloride 0.9% 100 ML IVPB SCH (18:03)
--- NOTE | 2018-05-30 19:20 | CP.PCM.HP ---
History of Present Illness - History of Present Illness History of Present Illness: 67-year-old female with history of hypertension hypercholesterolemia with history of hypertension and diabetes with a possible history of stroke came with abdominal pain especially on the upper abdominal area with vomiting x1 non-bilia ry no hematemesis patient has nausea Patient has no fever no hematochezia denies any chest pain denies any shortness of breath eventually ER attending has decided to admit the patient is because WBC went up to 31.4 CT scan of the abdomen revealed findings suspicious for acute cholecystitis Patient is also evaluated by surgery eventually decided to admit the patient's Present on Admission - Present on Admission Any Indicators Present on Admission: No 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) Other/Comment: h/o CVA 2002 - HEENT Hx HEENT Problems: Yes Other/Comment: RT EYE PROSTHESIS - ENDOCRINE/METABOLIC Hx Endocrine Disorders: Yes Hx Diabetes Mellitus Type 2: Yes - HEMATOLOGICAL/ONCOLOGICAL Hx Human Immunodeficiency Virus (HIV): No - MUSCULOSKELETAL/RHEUMATOLOGICAL Hx Falls: No - GASTROINTESTINAL Hx Constipation: Yes - PSYCHIATRIC Hx Substance Use: No - SURGICAL HISTORY Hx Appendectomy: Yes - ANESTHESIA Hx Anesthesia: Yes Hx Anesthesia Reactions: No Hx Malignant Hyperthermia: No Meds Allergies/Adverse Reactions: Allergies Allergy/AdvReac Type Severity Reaction Status Date / Time No Known Allergies Allergy Verified 05/30/18 11:27 Physical Exam - Constitutional Appears: Well - Head Exam Head Exam: ATRAUMATIC, NORMAL INSPECTION, NORMOCEPHALIC - Eye Exam Eye Exam: EOMI, Normal appearance, PERRL Pupil Exam: NORMAL ACCOMODATION, PERRL - ENT Exam ENT Exam: Mucous Membranes Moist, Normal Exam - Neck Exam Neck exam: Positive for: Normal Inspection - Respiratory Exam Respiratory Exam: Decreased Breath Sounds - Cardiovascular Exam Cardiovascular Exam: REGULAR RHYTHM, +S1, +S2 - GI/Abdominal Exam GI & Abdominal Exam: Diminished Bowel Sounds, Soft - Rectal Exam Rectal Exam: Deferred - Neurological Exam Neurological exam: Oriented x3 Results - Vital Signs Recent Vital Signs: Last Vital Signs Temp 98.1 F 05/30/18 17:50 Pulse 82 05/30/18 17:50 Resp 20 05/30/18 17:50 BP 134/72 05/30/18 17:50 Pulse Ox 95 05/30/18 18:32 - Labs Result Diagrams: 05/30/18 12:15 05/30/18 12:15 Labs: Laboratory Results - last 24 hr 05/30/18 05/30/18 05/30/18 11:31 12:15 12:15 WBC 31.4 H D RBC 4.57 Hgb 11.8 Hct 36.9 MCV 80.7 L D MCH 25.9 L MCHC 32.0 L RDW 15.7 H Plt Count 298 MPV 10.4 Neut % (Auto) 92.2 H Lymph % (Auto) 3.7 L [place] % (Auto) 3.8 Eos % (Auto) 0.1 Baso % (Auto) 0.2 Neut # (Auto) 28.9 H Lymph # (Auto) 1.2 [place] # (Auto) 1.2 H Eos # (Auto) 0.0 Baso # (Auto) 0.1 Neutrophils % (Manual) 87 H Band Neutrophils % 5 H Lymphocytes % (Manual) 4 L Monocytes % (Manual) 4 Platelet Estimate Normal Large Platelets Present Giant Platelets Present Polychromasia Slight Hypochromasia (manual) Slight Anisocytosis (manual) Slight PT INR APTT pO2 VBG pH VBG pCO2 VBG HCO3 VBG Total CO2 VBG O2 Sat (Calc) VBG Base Excess VBG Potassium Glucose Lactate Sodium 139 Potassium 4.6 Chloride 102 Carbon Dioxide 27 Anion Gap 15 BUN 34 H Creatinine 1.5 H Est GFR ( Amer) 42 Est GFR (Non-Af Amer) 34 POC Glucose (mg/dL) 213 H Random Glucose 189 H D Calcium 9.8 Phosphorus Magnesium Total Bilirubin 1.6 H AST 234 H D ALT 84 H D Alkaline Phosphatase 203 H D Troponin I NT-Pro-B Natriuret Pep Total Protein 7.7 Albumin 4.1 Globulin 3.6 Albumin/Globulin Ratio 1.1 Lipase Venous Blood Potassium Urine Color Urine Clarity Urine pH Ur Specific [place] Urine Protein Urine Glucose (UA) Urine Ketones Urine Blood Urine Nitrate Urine Bilirubin Urine Urobilinogen Ur Leukocyte Esterase Urine WBC (Auto) Urine RBC (Auto) Ur Squamous Epith Cells Urine Bacteria Hyaline Casts Blood Type Antibody Screen 05/30/18 05/30/18 05/30/18 12:15 13:30 13:30 WBC RBC Hgb Hct MCV MCH MCHC RDW Plt Count MPV Neut % (Auto) Lymph % (Auto) [place] % (Auto) Eos % (Auto) Baso % (Auto) Neut # (Auto) Lymph # (Auto) [place] # (Auto) Eos # (Auto) Baso # (Auto) Neutrophils % (Manual) Band Neutrophils % Lymphocytes % (Manual) Monocytes % (Manual) Platelet Estimate Large Platelets Giant Platelets Polychromasia Hypochromasia (manual) Anisocytosis (manual) PT 19.0 H INR 1.7 APTT 31 pO2 VBG pH VBG pCO2 VBG HCO3 VBG Total CO2 VBG O2 Sat (Calc) VBG Base Excess VBG Potassium Glucose Lactate Sodium Potassium Chloride Carbon Dioxide Anion Gap BUN Creatinine Est GFR ( Amer) Est GFR (Non-Af Amer) POC Glucose (mg/dL) Random Glucose Calcium Phosphorus 1.9 L Magnesium 1.1 L Total Bilirubin AST ALT Alkaline Phosphatase Troponin I < 0.0120 NT-Pro-B Natriuret Pep 1660 H Total Protein Albumin Globulin Albumin/Globulin Ratio Lipase < 10 L Venous Blood Potassium Urine Color [place] Urine Clarity Hazy Urine pH 5.0 Ur Specific [place] 1.015 Urine Protein 2+ H Urine Glucose (UA) Normal Urine Ketones Negative Urine Blood 1+ H Urine Nitrate Negative Urine Bilirubin Negative Urine Urobilinogen 2.0 H Ur Leukocyte Esterase Neg Urine WBC (Auto) 2 Urine RBC (Auto) 1 Ur Squamous Epith Cells < 1 Urine Bacteria Rare Hyaline Casts 0-2 Blood Type Antibody Screen 05/30/18 05/30/18 05/30/18 13:30 13:40 15:49 WBC RBC Hgb Hct MCV MCH MCHC RDW Plt Count MPV Neut % (Auto) Lymph % (Auto) [place] % (Auto) Eos % (Auto) Baso % (Auto) Neut # (Auto) Lymph # (Auto) [place] # (Auto) Eos # (Auto) Baso # (Auto) Neutrophils % (Manual) Band Neutrophils % Lymphocytes % (Manual) Monocytes % (Manual) Platelet Estimate Large Platelets Giant Platelets Polychromasia Hypochromasia (manual) Anisocytosis (manual) PT INR APTT pO2 18 L VBG pH 7.38 VBG pCO2 33 L VBG HCO3 19.3 VBG Total CO2 20.5 L VBG O2 Sat (Calc) 30.9 L VBG Base Excess -4.7 L VBG Potassium 2.7 L Glucose 120 H Lactate 1.0 Sodium 144.0 Potassium Chloride 119.0 H Carbon Dioxide Anion Gap BUN Creatinine Est GFR ( Amer) Est GFR (Non-Af Amer) POC Glucose (mg/dL) Random Glucose Calcium Phosphorus Magnesium Total Bilirubin AST ALT Alkaline Phosphatase Troponin I < 0.0120 NT-Pro-B Natriuret Pep Total Protein Albumin Globulin Albumin/Globulin Ratio Lipase Venous Blood Potassium 2.7 L Urine Color Urine Clarity Urine pH Ur Specific [place] Urine Protein Urine Glucose (UA) Urine Ketones Urine Blood Urine Nitrate Urine Bilirubin Urine Urobilinogen Ur Leukocyte Esterase Urine WBC (Auto) Urine RBC (Auto) Ur Squamous Epith Cells Urine Bacteria Hyaline Casts Blood Type A POSITIVE Antibody Screen Negative 05/30/18 05/30/18 16:53 16:55 WBC RBC Hgb Hct MCV MCH MCHC RDW Plt Count MPV Neut % (Auto) Lymph % (Auto) [place] % (Auto) Eos % (Auto) Baso % (Auto) Neut # (Auto) Lymph # (Auto) [place] # (Auto) Eos # (Auto) Baso # (Auto) Neutrophils % (Manual) Band Neutrophils % Lymphocytes % (Manual) Monocytes % (Manual) Platelet Estimate Large Platelets Giant Platelets Polychromasia Hypochromasia (manual) Anisocytosis (manual) PT INR APTT pO2 21 L VBG pH 7.37 VBG pCO2 47 VBG HCO3 24.2 VBG Total CO2 28.6 H VBG O2 Sat (Calc) 37.2 L VBG Base Excess 1.3 VBG Potassium 4.0 Glucose 162 H Lactate 1.4 Sodium 141.0 Potassium Chloride 109.0 H Carbon Dioxide Anion Gap BUN Creatinine Est GFR ( Amer) Est GFR (Non-Af Amer) POC Glucose (mg/dL) 169 H Random Glucose Calcium Phosphorus Magnesium Total Bilirubin AST ALT Alkaline Phosphatase Troponin I NT-Pro-B Natriuret Pep Total Protein Albumin Globulin Albumin/Globulin Ratio Lipase Venous Blood Potassium 4.0 Urine Color Urine Clarity Urine pH Ur Specific [place] Urine Protein Urine Glucose (UA) Urine Ketones Urine Blood Urine Nitrate Urine Bilirubin Urine Urobilinogen Ur Leukocyte Esterase Urine WBC (Auto) Urine RBC (Auto) Ur Squamous Epith Cells Urine Bacteria Hyaline Casts Blood Type Antibody Screen Assessment & Plan (1) Abdominal pain Status: Acute (2) Cholecystitis Status: Acute (3) Nausea Status: Acute (4) CVA, old, dysarthria Status: Acute (5) Contusion Status: Acute (6) Hyperglycemia Status: Acute (7) Ischemic stroke Status: Acute Priority: High (8) Slurring of speech Status: Acute (9) Toothache Status: Acute (10) UTI (urinary tract infection) Status: Acute (11) Diabetes mellitus Status: Chronic Priority: Medium (12) Hyperlipidemia Status: Chronic Priority: High (13) Hypertension Status: Chronic Priority: Medium - Assessment and Plan (Free Text) Plan: Plan IV antibiotics Status post abdominal pelvic CT Labs with WBC is 31 potassium is 4.6 creatinine is 1.5 Obstructive series x-ray IV fluid Septic workup On Zosyn Meropenem Magnesium sulfate Morphine as needed for pain every 4 Vancomycin x1 dose A surgical follow-up
[2018-05-31] MEDS: Meropenem 1 GM in Sodium Chloride 0.9% 100 ML IVPB SCH ×3 (01:30→16:37)
[2018-05-31] MEDS: (Novolin R) Insulin Human Regular 100 units/ml vial SC SCH ×5 (05:20→20:59)
[2018-05-31] MEDS: Lactated Ringer's 1,000 ML IV SCH ×2 (06:15→16:37)
[2018-05-31] MEDS ORDERED: Dextrose 50% SYRINGE Inj (50 ml) IV PRN (07:20)
[2018-05-31] MEDS ORDERED: Glucagon Recombinant 1 mg Inj IM PRN (07:20)
[2018-05-31 08:31] LABS: BASO % 0.2 % (0.0-2.0); EOS % 0.1 % (0.0-4.0); HEMOGLOBIN 11.2 g/dL (11.0-16.0); LYMPH # 0.8 K/uL (1.0-4.3); LYMPH % 3.4 % (20.0-40.0); MEAN CELL VOLUME 80.6 fL (81.0-99.0); MEAN CORPUSCULAR HEMOGLOBIN 26.3 pg (27.0-31.0); MEAN CORPUSCULAR HGB CONC 32.6 g/dL (33.0-37.0); MONO % 4.1 % (0.0-10.0); NEUT # 21.6 K/uL (1.8-7.0); NEUT % 92.2 % (50.0-75.0); PLATELET COUNT 344 K/uL (130-400); RBC 4.28 Mil/uL (3.80-5.20); RED CELL DISTRIBUTION WIDTH 15.9 % (11.5-14.5); WHITE BLOOD COUNT 23.4 K/uL (4.8-10.8)
[2018-05-31 08:34] LABS: INR 1.5; PROTHROMBIN TIME 16.3 SECONDS (9.7-12.2)
[2018-05-31 08:47] LABS: ALBUMIN 3.5 g/dL (3.5-5.0)
[2018-05-31 09:09] LABS: HEPATITIS B SURFACE AG Negative (NEGATIVE)
[2018-05-31 09:14] LABS: HEPATITIS A IGM NEGATIVE (NEGATIVE); HEPATITIS B CORE AB NEGATIVE (NEGATIVE)
[2018-05-31 09:26] LABS: HEPATITIS C ANTIBODY NEGATIVE (NEGATIVE)
[2018-05-31 09:27] LABS: BANDS 1 % (0-2); LYMPHOCYTE 5 % (20-40); MONOCYTE 4 % (0-10); NEUTROPHIL 90 % (50-75); PLATELET ESTIMATE NORMAL (NORMAL); TOTAL CELLS COUNTED 100
[2018-05-31 09:28] LABS: ANISOCYTOSIS SLIGHT; HYPOCHROMIC SLIGHT; POLYCHROMIC SLIGHT
[2018-05-31 09:29] LABS: LARGE PLATELETS PRESENT
[2018-05-31 09:31] LABS: GIANT PLATELETS PRESENT
--- NOTE | 2018-05-31 10:04 | CP.PCM.PN ---
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 3 family member no dairrhoea no fever expalined details of her reports to pt and famly Objective - Vital Signs/Intake and Output Vital Signs (last 24 hours): Temp Pulse Resp BP Pulse Ox 97.6 F 88 20 139/80 95 05/31/18 07:30 05/31/18 07:30 05/31/18 07:30 05/31/18 07:30 05/31/18 07:30 - Medications Medications: Current Medications Dextrose (Dextrose 50% Inj) 0 ml IV STAT PRN; Protocol PRN Reason: Hypoglycemia Protocol Dextrose (Glutose 15) 0 gm PO ONCE PRN; Protocol PRN Reason: Hypoglycemia Protocol Glucagon (Glucagen Diagnostic Kit) 0 mg IM STAT PRN; Protocol PRN Reason: Hypoglycemia Protocol Vancomycin/Sodium Chloride (Vancomycin 1 Gm/Ns 200 Ml) 1 gm in 200 mls @ 133 mls/hr IVPB Q12H STORMY; Protocol Stop: 06/05/18 00:16 Last Admin: 05/31/18 00:00 Dose: 133 mls/hr Meropenem 1 gm/ Sodium (Chloride) 100 mls @ 100 mls/hr IVPB Q8H STORMY; Protocol Last Admin: 05/31/18 01:30 Dose: 100 mls/hr Lactated Ringer's (Lactated Ringer's) 1,000 mls @ 100 mls/hr IV .Q10H STORMY Last Admin: 05/31/18 06:15 Dose: 100 mls/hr Dextrose (Dextrose 5% In Water 1000 Ml) 1,000 mls @ 0 mls/hr IV .Q0M PRN; Protocol PRN Reason: Hypoglycemia Protocol Ibuprofen (Motrin Tab) 400 mg PO Q6H PRN PRN Reason: Fever >100.4 F Insulin Human Regular (Novolin R) 0 unit SC ACHS STORMY; Protocol Last Admin: 05/31/18 08:30 Dose: Not Given Losartan Potassium (Cozaar) 12.5 mg PO DAILY STORMY Morphine Sulfate (Morphine) 2 mg IVP Q4 PRN PRN Reason: Pain, severe (8-10) Last Admin: 05/31/18 05:45 Dose: 2 mg Ondansetron HCl (Zofran Inj) 4 mg IVP Q4H PRN PRN Reason: Nausea/Vomiting Last Admin: 05/31/18 08:47 Dose: 4 mg - Labs Labs: 05/31/18 08:15 05/31/18 08:15 PT 16.3 SECONDS (9.7-12.2) H 05/31/18 08:15 INR 1.5 05/31/18 08:15 APTT 34 SECONDS (21-34) 05/31/18 08:15 - Constitutional Appears: Well - Head Exam Head Exam: ATRAUMATIC, NORMAL INSPECTION, NORMOCEPHALIC - Eye Exam Eye Exam: EOMI, Normal appearance, PERRL Pupil Exam: NORMAL ACCOMODATION, PERRL - ENT Exam ENT Exam: Mucous Membranes Moist, Normal Exam - Neck Exam Neck Exam: Full ROM, Normal Inspection. absent: Lymphadenopathy - Respiratory Exam Respiratory Exam: Decreased Breath Sounds - Cardiovascular Exam Cardiovascular Exam: REGULAR RHYTHM, +S1, +S2 - GI/Abdominal Exam GI & Abdominal Exam: Soft, Diminished Bowel Sounds - Rectal Exam Rectal Exam: Deferred - Neurological Exam Neurological Exam: Oriented x3 Assessment and Plan (1) Abdominal pain Status: Acute (2) Cholecystitis Status: Acute (3) Nausea Status: Acute (4) CVA, old, dysarthria Status: Acute (5) Contusion Status: Acute (6) Hyperglycemia Status: Acute (7) Ischemic stroke Status: Acute (8) Slurring of speech Status: Acute (9) Toothache Status: Acute (10) UTI (urinary tract infection) Status: Acute (11) Diabetes mellitus Status: Chronic (12) Hyperlipidemia Status: Chronic (13) Hypertension Status: Chronic - Assessment and Plan (Free Text) Plan: cozaar dextrose 5% in water dextrose 50% inj glucagen diagonstic kit glutose 15 lactated ringers meropenem 1gm morphine motrin tab novolin R vancomycin zofran medications reviewed vitals reviewed labs reviewed White cell count went down to 23 No surgical intervention at this time Follow-up with ID Follow-up with the surgery Monitor for the fever Case discussed with the surgery Serial abdominal exams Zofran for vomiting MRCP in a.m. ct scan report maykel rodriguez/bridgett
[2018-05-31] MEDS: Losartan 12.5 MG TAB PO SCH (11:00)
[2018-05-31] MEDS: Vancomycin 1 gm/NS 200 ml 1 GM/200 ML BAG IVPB SCH ×2 (12:48)
--- NOTE | 2018-05-31 14:45 | CP.PCM.CON ---
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) Other/Comment: h/o CVA 2003 - HEENT Hx HEENT Problems: Yes Other/Comment: RT EYE PROSTHESIS - ENDOCRINE/METABOLIC Hx Endocrine Disorders: Yes Hx Diabetes Mellitus Type 2: Yes - HEMATOLOGICAL/ONCOLOGICAL Hx Human Immunodeficiency Virus (HIV): No - MUSCULOSKELETAL/RHEUMATOLOGICAL Hx Falls: No - GASTROINTESTINAL Hx Constipation: Yes - PSYCHIATRIC Hx Substance Use: No - SURGICAL HISTORY Hx Appendectomy: Yes - ANESTHESIA Hx Anesthesia: Yes Hx Anesthesia Reactions: No Hx Malignant Hyperthermia: No Meds Allergies/Adverse Reactions: Allergies Allergy/AdvReac Type Severity Reaction Status Date / Time No Known Allergies Allergy Verified 05/30/18 11:27 - Medications Medications: Current Medications Sodium Chloride (Sodium Chloride 0.9%) 1,000 mls @ 100 mls/hr IV .Q10H ONE Stop: 05/31/18 01:54 Last Admin: 05/30/18 16:55 Dose: 100 mls/hr Sodium Phosphate 15 mmole/ (Sodium Chloride) 255 mls @ 50 mls/hr IVPB .Q5H6M ONE Stop: 05/30/18 21:53 Last Admin: 05/30/18 18:02 Dose: 50 mls/hr Vancomycin/Sodium Chloride (Vancomycin 1 Gm/Ns 200 Ml) 1 gm in 200 mls @ 133 mls/hr IVPB Q12H STORMY; Protocol Stop: 06/05/18 00:16 Meropenem 1 gm/ Sodium (Chloride) 100 mls @ 100 mls/hr IVPB Q8H STORMY; Protocol Last Admin: 05/30/18 18:03 Dose: 100 mls/hr Ibuprofen (Motrin Tab) 400 mg PO Q6H PRN PRN Reason: Fever >100.4 F Insulin Human Regular (Novolin R) 0 unit SC Q6H STORMY; Protocol Last Admin: 05/30/18 17:19 Dose: Not Given Morphine Sulfate (Morphine) 2 mg IVP Q4 PRN PRN Reason: Pain, severe (8-10) Ondansetron HCl (Zofran Inj) 4 mg IVP Q6H PRN PRN Reason: Nausea/Vomiting Last Admin: 05/30/18 18:01 Dose: 4 mg Results - Vital Signs Recent Vital Signs: Last Vital Signs Temp 98.1 F 05/30/18 17:50 Pulse 82 05/30/18 17:50 Resp 20 05/30/18 17:50 BP 134/72 05/30/18 17:50 Pulse Ox 95 05/30/18 18:32 - Labs Result Diagrams: 05/30/18 12:15 05/30/18 12:15 Labs: Laboratory Results - last 24 hr 05/30/18 05/30/18 05/30/18 11:31 12:15 12:15 WBC 31.4 H D RBC 4.57 Hgb 11.8 Hct 36.9 MCV 80.7 L D MCH 25.9 L MCHC 32.0 L RDW 15.7 H Plt Count 298 MPV 10.4 Neut % (Auto) 92.2 H Lymph % (Auto) 3.7 L [place] % (Auto) 3.8 Eos % (Auto) 0.1 Baso % (Auto) 0.2 Neut # (Auto) 28.9 H Lymph # (Auto) 1.2 [place] # (Auto) 1.2 H Eos # (Auto) 0.0 Baso # (Auto) 0.1 Neutrophils % (Manual) 87 H Band Neutrophils % 5 H Lymphocytes % (Manual) 4 L Monocytes % (Manual) 4 Platelet Estimate Normal Large Platelets Present Giant Platelets Present Polychromasia Slight Hypochromasia (manual) Slight Anisocytosis (manual) Slight PT INR APTT pO2 VBG pH VBG pCO2 VBG HCO3 VBG Total CO2 VBG O2 Sat (Calc) VBG Base Excess VBG Potassium Glucose Lactate Sodium 139 Potassium 4.6 Chloride 102 Carbon Dioxide 27 Anion Gap 15 BUN 34 H Creatinine 1.5 H Est GFR ( Amer) 42 Est GFR (Non-Af Amer) 34 POC Glucose (mg/dL) 213 H Random Glucose 189 H D Calcium 9.8 Phosphorus Magnesium Total Bilirubin 1.6 H AST 234 H D ALT 84 H D Alkaline Phosphatase 203 H D Troponin I NT-Pro-B Natriuret Pep Total Protein 7.7 Albumin 4.1 Globulin 3.6 Albumin/Globulin Ratio 1.1 Lipase Venous Blood Potassium Urine Color Urine Clarity Urine pH Ur Specific [place] Urine Protein Urine Glucose (UA) Urine Ketones Urine Blood Urine Nitrate Urine Bilirubin Urine Urobilinogen Ur Leukocyte Esterase Urine WBC (Auto) Urine RBC (Auto) Ur Squamous Epith Cells Urine Bacteria Hyaline Casts Blood Type Antibody Screen 05/30/18 05/30/18 05/30/18 12:15 13:30 13:30 WBC RBC Hgb Hct MCV MCH MCHC RDW Plt Count MPV Neut % (Auto) Lymph % (Auto) [place] % (Auto) Eos % (Auto) Baso % (Auto) Neut # (Auto) Lymph # (Auto) [place] # (Auto) Eos # (Auto) Baso # (Auto) Neutrophils % (Manual) Band Neutrophils % Lymphocytes % (Manual) Monocytes % (Manual) Platelet Estimate Large Platelets Giant Platelets Polychromasia Hypochromasia (manual) Anisocytosis (manual) PT 19.0 H INR 1.7 APTT 31 pO2 VBG pH VBG pCO2 VBG HCO3 VBG Total CO2 VBG O2 Sat (Calc) VBG Base Excess VBG Potassium Glucose Lactate Sodium Potassium Chloride Carbon Dioxide Anion Gap BUN Creatinine Est GFR ( Amer) Est GFR (Non-Af Amer) POC Glucose (mg/dL) Random Glucose Calcium Phosphorus 1.9 L Magnesium 1.1 L Total Bilirubin AST ALT Alkaline Phosphatase Troponin I < 0.0120 NT-Pro-B Natriuret Pep 1660 H Total Protein Albumin Globulin Albumin/Globulin Ratio Lipase < 10 L Venous Blood Potassium Urine Color [place] Urine Clarity Hazy Urine pH 5.0 Ur Specific [place] 1.015 Urine Protein 2+ H Urine Glucose (UA) Normal Urine Ketones Negative Urine Blood 1+ H Urine Nitrate Negative Urine Bilirubin Negative Urine Urobilinogen 2.0 H Ur Leukocyte Esterase Neg Urine WBC (Auto) 2 Urine RBC (Auto) 1 Ur Squamous Epith Cells < 1 Urine Bacteria Rare Hyaline Casts 0-2 Blood Type Antibody Screen 05/30/18 05/30/18 05/30/18 13:30 13:40 15:49 WBC RBC Hgb Hct MCV MCH MCHC RDW Plt Count MPV Neut % (Auto) Lymph % (Auto) [place] % (Auto) Eos % (Auto) Baso % (Auto) Neut # (Auto) Lymph # (Auto) [place] # (Auto) Eos # (Auto) Baso # (Auto) Neutrophils % (Manual) Band Neutrophils % Lymphocytes % (Manual) Monocytes % (Manual) Platelet Estimate Large Platelets Giant Platelets Polychromasia Hypochromasia (manual) Anisocytosis (manual) PT INR APTT pO2 18 L VBG pH 7.38 VBG pCO2 33 L VBG HCO3 19.3 VBG Total CO2 20.5 L VBG O2 Sat (Calc) 30.9 L VBG Base Excess -4.7 L VBG Potassium 2.7 L Glucose 120 H Lactate 1.0 Sodium 144.0 Potassium Chloride 119.0 H Carbon Dioxide Anion Gap BUN Creatinine Est GFR ( Amer) Est GFR (Non-Af Amer) POC Glucose (mg/dL) Random Glucose Calcium Phosphorus Magnesium Total Bilirubin AST ALT Alkaline Phosphatase Troponin I < 0.0120 NT-Pro-B Natriuret Pep Total Protein Albumin Globulin Albumin/Globulin Ratio Lipase Venous Blood Potassium 2.7 L Urine Color Urine Clarity Urine pH Ur Specific [place] Urine Protein Urine Glucose (UA) Urine Ketones Urine Blood Urine Nitrate Urine Bilirubin Urine Urobilinogen Ur Leukocyte Esterase Urine WBC (Auto) Urine RBC (Auto) Ur Squamous Epith Cells Urine Bacteria Hyaline Casts Blood Type A POSITIVE Antibody Screen Negative 05/30/18 05/30/18 05/30/18 16:53 16:55 21:12 WBC RBC Hgb Hct MCV MCH MCHC RDW Plt Count MPV Neut % (Auto) Lymph % (Auto) [place] % (Auto) Eos % (Auto) Baso % (Auto) Neut # (Auto) Lymph # (Auto) [place] # (Auto) Eos # (Auto) Baso # (Auto) Neutrophils % (Manual) Band Neutrophils % Lymphocytes % (Manual) Monocytes % (Manual) Platelet Estimate Large Platelets Giant Platelets Polychromasia Hypochromasia (manual) Anisocytosis (manual) PT INR APTT pO2 21 L VBG pH 7.37 VBG pCO2 47 VBG HCO3 24.2 VBG Total CO2 28.6 H VBG O2 Sat (Calc) 37.2 L VBG Base Excess 1.3 VBG Potassium 4.0 Glucose 162 H Lactate 1.4 Sodium 141.0 Potassium Chloride 109.0 H Carbon Dioxide Anion Gap BUN Creatinine Est GFR ( Amer) Est GFR (Non-Af Amer) POC Glucose (mg/dL) 169 H 313 H Random Glucose Calcium Phosphorus Magnesium Total Bilirubin AST ALT Alkaline Phosphatase Troponin I NT-Pro-B Natriuret Pep Total Protein Albumin Globulin Albumin/Globulin Ratio Lipase Venous Blood Potassium 4.0 Urine Color Urine Clarity Urine pH Ur Specific [place] Urine Protein Urine Glucose (UA) Urine Ketones Urine Blood Urine Nitrate Urine Bilirubin Urine Urobilinogen Ur Leukocyte Esterase Urine WBC (Auto) Urine RBC (Auto) Ur Squamous Epith Cells Urine Bacteria Hyaline Casts Blood Type Antibody Screen
--- NOTE | 2018-05-31 14:52 | CP.PCM.CON ---
History of Present Illness - History of Present Illness History of Present Illness: 67F with PMH that includes DM, HTN, CVA present to [facility] for abdominal pain. Patient states that pain started one day prior to admission Patient reports associated nausea/vomiting at home which persists Ultrqasound shows cholelithiasis and thickened gallbladder IV antibiotics in progress Surgery on board PMH: DM, HTN, CVA PSH: appendectomy ALL: NKDA Review of Systems - Review of Systems All systems: reviewed and no additional remarkable complaints except - Constitutional Constitutional: As Per HPI - EENT Eyes: absent: As Per HPI, Blind Spots, Blurred Vision, Change in Vision, Decreased Night Vision, Diplopia, Discharge, Dry Eye, Exophthalmos, Floaters, Irritation, Itchy Eyes, Loss of Peripheral Vision, Pain, Photophobia, Requires Corrective Lenses, Sees Flashes, Spots in Vision, Tunnel Vision, Other Visual Disturbances, Loss of Vision, Other Ears: absent: As Per HPI, Decreased Hearing, Ear Discharge, Ear Pain, Tinnitus, Abnormal Hearing, Disequilibrium, Dizziness, Other Nose/Mouth/Throat: absent: As Per HPI, Epistaxis, Nasal Congestion, Nasal Discharge, Nasal Obstruction, Nasal Trauma, Nose Pain, Post Nasal Drip, Sinus Pain, Sinus Pressure, Bleeding Gums, Change in Voice, Dental Pain, Dry Mouth, Dysphagia, Halitosis, Hoarsness, Lip Swelling, Mouth Lesions, Mouth Pain, Odynophagia, Sore Throat, Throat Swelling, Tongue Swelling, Facial Pain, Neck Pain, Neck Mass, Other - Breasts Breasts: absent: As Per HPI, Change in Shape, Mass, Pain, Nipple Discharge, Nipple Inversion, Skin Changes, Swelling, Other - Cardiovascular Cardiovascular: As Per HPI - Respiratory Respiratory: absent: As Per HPI, Cough, Dyspnea, Hemoptysis, Dyspnea on Exertion, Wheezing, Snoring, Stridor, Pain on Inspiration, Chest Congestion, Excessive Mucous Production, Change in Mucous Color, Pain with Coughing, Other - Gastrointestinal Gastrointestinal: As Per HPI, Abdominal Pain - Genitourinary Genitourinary: absent: As Per HPI, Change in Urinary Stream, Difficulty Urinating, Dysuria, Flank Pain, Hematuria, Pyuria, Nocturia, Urinary Inco ntinence, Urinary Frequency, Urinary Hesitance, Urinary Urgency, Voiding Freq/Small Amts, Freq UTI, Hx Renal/Bladder Calculi, Hx /Renal Surgery, Bladder Distension, Other - Reproductive: Female Reproductive:Female: absent: As Per HPI, Amenorrhea, Amenorrhea/ Control, Currently Menstual, Cycle <21 Days, Cycle >35 Days, Cycle Variable, Menses 1-7 Days, Menses >/= 8 Days, Menses Variable, Cycle > 4 Weeks Between, No Menses for 6 Months, Heavy Menses, Light Menses, Normal Menses, Spotting Between Cycles, S/P Hysterectomy, Menopausal, Post Menopausal, Premenarche, Abnormal Vaginal Bleeding, Dysmenorrhea, Dyspareunia, Genital Lesions, Genital Pruritis, Pelvic Pain, Prolapse Symptoms, Sexual Dysfunction, Vaginal Discharge, Vaginal Dryness, Vaginal Odor, Vaginal Pruritis, Other - Menstruation Menstruation: absent: As Per HPI, Amenorrhea, Amenorrhea/ Control, Currently Menstual, Cycle <21 Days, Cycle >35 Days, Cycle Variable, Menses 1-7 Days, Menses >/= 8 Days, Menses Variable, Cycle > 4 Weeks Between, No Menses for 6 Months, Heavy Menses, Light Menses, Normal Menses, Spotting Between Cycles, S/P Hysterectomy, Menopausal, Post Menopausal, Premenarche, Abnormal Vaginal Bleeding, Dysmenorrhea, Other - Musculoskeletal Musculoskeletal: absent: As Per HPI, Abnormal Gait, Arthralgias, Atrophy, Back Pain, Deformity, Joint Swelling, Limited Range of Motion, Loss of Height, Muscle Cramps, Muscle Weakness, Myalgias, Neck Pain, Numbness, Radiating Pain into Limb, Stiffness, Tingling, Other - Integumentary Integumentary: absent: As Per HPI, Acne, Alopecia, Bleeding Lesions, Change in Hair, Change in Nails, Change in Pigmentation, Changing Lesions, Dry Skin, Erythema, Furuncle, Hirsutism, Lesions, New Lesions, Non-Healing Lesions, Photosensitivity, Pruritus, Rash, Skin Pain, Skin Ulcer, Sores, Striae, Swelling, Unusual Bruising, Wounds, Jaundice, Other - Neurological Neurological: absent: As Per HPI, Abnormal Gait, Abnormal Hearing, Abnormal Movements, Abnormal Speech, Behavioral Changes, Burning Sensations, Confusion, Convulsions, Disequilibrium, Dizziness, Numbness, Focal Weakness, Frequent Falls, Headaches, Lack of Coordination, Loss of Vision, Memory Loss, Paresthesias, Radicular Pain, Restless Legs, Sensory Deficit, Syncope, Tingling, Tremor, Vertigo, Weakness, Other Visual Disturbances, Other - Psychiatric Psychiatric: absent: As Per HPI, Abnormal Sleep Pattern, Anhedonia, Anxiety, Auditory Hallucinations, Behavioral Changes, Change in Appetite, Change in Libido, Confusion, Depression, Difficulty Concentrating, Hallucinations, Homicidal Ideation, Hopelessness, Irritability, Memory Loss, Mood Swings, Panic Attacks, Paranoia, Suicidal Ideation, Visual Hallucinations, Tactile Hallucinations, Other - Endocrine Endocrine: absent: As Per HPI, Change in Body Appearance, Change in Libido, Cold Intolorance, Deepening of Voice, Excessive Sweating, Fatigue, Flushing, Heat Intolorance, Increase in Ring/Shoe/Hat Size, Palpitations, Polydipsia, Polyphagia, Polyuria, Other - Hematologic/Lymphatic Hematologic: absent: As Per HPI, Easy Bleeding, Easy Bruising, Lymphadenopathy, Other 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) Other/Comment: h/o CVA 2003 - HEENT Hx HEENT Problems: Yes Other/Comment: RT EYE PROSTHESIS - ENDOCRINE/METABOLIC Hx Endocrine Disorders: Yes Hx Diabetes Mellitus Type 2: Yes - HEMATOLOGICAL/ONCOLOGICAL Hx Human Immunodeficiency Virus (HIV): No - MUSCULOSKELETAL/RHEUMATOLOGICAL Hx Falls: No - GASTROINTESTINAL Hx Constipation: Yes - PSYCHIATRIC Hx Substance Use: No - SURGICAL HISTORY Hx Appendectomy: Yes - ANESTHESIA Hx Anesthesia: Yes Hx Anesthesia Reactions: No Hx Malignant Hyperthermia: No Meds Allergies/Adverse Reactions: Allergies Allergy/AdvReac Type Severity Reaction Status Date / Time No Known Allergies Allergy Verified 05/30/18 11:27 - Medications Medications: Current Medications Dextrose (Dextrose 50% Inj) 0 ml IV STAT PRN; Protocol PRN Reason: Hypoglycemia Protocol Dextrose (Glutose 15) 0 gm PO ONCE PRN; Protocol PRN Reason: Hypoglycemia Protocol Glucagon (Glucagen Diagnostic Kit) 0 mg IM STAT PRN; Protocol PRN Reason: Hypoglycemia Protocol Vancomycin/Sodium Chloride (Vancomycin 1 Gm/Ns 200 Ml) 1 gm in 200 mls @ 133 mls/hr IVPB Q12H [facility]; Protocol Stop: 06/05/18 00:16 Last Admin: 05/31/18 12:48 Dose: 133 mls/hr Meropenem 1 gm/ Sodium (Chloride) 100 mls @ 100 mls/hr IVPB Q8H [facility]; Protocol Last Admin: 05/31/18 10:30 Dose: 100 mls/hr Lactated Ringer's (Lactated Ringer's) 1,000 mls @ 100 mls/hr IV .Q10H [facility] Last Admin: 05/31/18 06:15 Dose: 100 mls/hr Dextrose (Dextrose 5% In Water 1000 Ml) 1,000 mls @ 0 mls/hr IV .Q0M PRN; Protocol PRN Reason: Hypoglycemia Protocol Ibuprofen (Motrin Tab) 400 mg PO Q6H PRN PRN Reason: Fever >100.4 F Insulin Human Regular (Novolin R) 0 unit SC ACHS [facility]; Protocol Last Admin: 05/31/18 12:37 Dose: 2 units Losartan Potassium (Cozaar) 12.5 mg PO DAILY [facility] Last Admin: 05/31/18 11:00 Dose: Not Given Morphine Sulfate (Morphine) 2 mg IVP Q4 PRN PRN Reason: Pain, severe (8-10) Last Admin: 05/31/18 14:33 Dose: 2 mg Ondansetron HCl (Zofran Inj) 4 mg IVP Q4H PRN PRN Reason: Nausea/Vomiting Last Admin: 05/31/18 12:44 Dose: 4 mg Physical Exam - Constitutional Appears: Non-toxic, In Acute Distress - Head Exam Head Exam: ATRAUMATIC, NORMAL INSPECTION, NORMOCEPHALIC - Eye Exam Eye Exam: EOMI, PERRL. absent: Scleral icterus - ENT Exam ENT Exam: Mucous Membranes Dry, Normal External Ear Exam, Normal Oropharynx - Neck Exam Neck exam: Negative for: Lymphadenopathy - Respiratory Exam Respiratory Exam: Decreased Breath Sounds, Clear to Auscultation Bilateral - Cardiovascular Exam Cardiovascular Exam: REGULAR RHYTHM, +S1, +S2 - GI/Abdominal Exam GI & Abdominal Exam: Diminished Bowel Sounds, Distended, Soft, Tenderness. absent: Organomegaly, Pulsatile Mass, Rebound, Rigid - Rectal Exam Rectal Exam: Deferred - Exam Exam: NORMAL INSPECTION - Extremities Exam Extremities exam: Positive for: pedal pulses present. Negative for: calf tenderness, pedal edema, tenderness - Back Exam Back exam: absent: CVA tenderness (L), CVA tenderness (R), paraspinal tenderness - Neurological Exam Neurological exam: Alert, CN II-XII Intact, Oriented x3, Reflexes Normal - Psychiatric Exam Psychiatric exam: Depressed - Skin Skin Exam: Dry Results - Vital Signs Recent Vital Signs: Last Vital Signs Temp 98.1 F 05/31/18 12:08 Pulse 85 05/31/18 12:08 Resp 20 05/31/18 12:08 BP 161/83 H 05/31/18 12:08 Pulse Ox 92 L 05/31/18 12:08 - Labs Result Diagrams: 05/31/18 08:15 05/31/18 08:15 Labs: Laboratory Results - last 24 hr 05/30/18 05/30/18 05/30/18 15:49 16:53 16:55 WBC RBC Hgb Hct MCV MCH MCHC RDW Plt Count MPV Neut % (Auto) Lymph % (Auto) [place] % (Auto) Eos % (Auto) Baso % (Auto) Neut # (Auto) Lymph # (Auto) [place] # (Auto) Eos # (Auto) Baso # (Auto) Neutrophils % (Manual) Band Neutrophils % Lymphocytes % (Manual) Monocytes % (Manual) Platelet Estimate Large Platelets Giant Platelets Polychromasia Hypochromasia (manual) Anisocytosis (manual) PT INR APTT pO2 21 L VBG pH 7.37 VBG pCO2 47 VBG HCO3 24.2 VBG Total CO2 28.6 H VBG O2 Sat (Calc) 37.2 L VBG Base Excess 1.3 VBG Potassium 4.0 Sodium 141.0 Chloride 109.0 H Glucose 162 H Lactate 1.4 Potassium Carbon Dioxide Anion Gap BUN Creatinine Est GFR ( Amer) Est GFR (Non-Af Amer) POC Glucose (mg/dL) 169 H Random Glucose Calcium Phosphorus Magnesium Total Bilirubin Direct Bilirubin GGT AST ALT Alkaline Phosphatase Total Protein Albumin Globulin Albumin/Globulin Ratio Venous Blood Potassium 4.0 Hepatitis A IgM Ab Hep Bs Antigen Hep B Core IgM Ab Hepatitis C Antibody Blood Type A POSITIVE Antibody Screen Negative 05/30/18 05/31/18 05/31/18 21:12 05:02 07:11 WBC RBC Hgb Hct MCV MCH MCHC RDW Plt Count MPV Neut % (Auto) Lymph % (Auto) [place] % (Auto) Eos % (Auto) Baso % (Auto) Neut # (Auto) Lymph # (Auto) [place] # (Auto) Eos # (Auto) Baso # (Auto) Neutrophils % (Manual) Band Neutrophils % Lymphocytes % (Manual) Monocytes % (Manual) Platelet Estimate Large Platelets Giant Platelets Polychromasia Hypochromasia (manual) Anisocytosis (manual) PT INR APTT pO2 VBG pH VBG pCO2 VBG HCO3 VBG Total CO2 VBG O2 Sat (Calc) VBG Base Excess VBG Potassium Sodium Chloride Glucose Lactate Potassium Carbon Dioxide Anion Gap BUN Creatinine Est GFR ( Amer) Est GFR (Non-Af Amer) POC Glucose (mg/dL) 313 H 243 H 225 H Random Glucose Calcium Phosphorus Magnesium Total Bilirubin Direct Bilirubin GGT AST ALT Alkaline Phosphatase Total Protein Albumin Globulin Albumin/Globulin Ratio Venous Blood Potassium Hepatitis A IgM Ab Hep Bs Antigen Hep B Core IgM Ab Hepatitis C Antibody Blood Type Antibody Screen 05/31/18 05/31/18 05/31/18 08:15 08:15 08:15 WBC 23.4 H RBC 4.28 Hgb 11.2 Hct 34.5 MCV 80.6 L MCH 26.3 L MCHC 32.6 L RDW 15.9 H Plt Count 344 MPV 10.0 Neut % (Auto) 92.2 H Lymph % (Auto) 3.4 L [place] % (Auto) 4.1 Eos % (Auto) 0.1 Baso % (Auto) 0.2 Neut # (Auto) 21.6 H Lymph # (Auto) 0.8 L [place] # (Auto) 1.0 H Eos # (Auto) 0.0 Baso # (Auto) 0.0 Neutrophils % (Manual) 90 H Band Neutrophils % 1 Lymphocytes % (Manual) 5 L Monocytes % (Manual) 4 Platelet Estimate Normal Large Platelets Present Giant Platelets Present Polychromasia Slight Hypochromasia (manual) Slight Anisocytosis (manual) Slight PT 16.3 H INR 1.5 APTT 34 pO2 VBG pH VBG pCO2 VBG HCO3 VBG Total CO2 VBG O2 Sat (Calc) VBG Base Excess VBG Potassium Sodium 140 Chloride 106 Glucose Lactate Potassium 3.7 Carbon Dioxide 26 Anion Gap 12 BUN 28 H Creatinine 1.6 H Est GFR ( Amer) 39 Est GFR (Non-Af Amer) 32 POC Glucose (mg/dL) Random Glucose 197 H Calcium 9.0 Phosphorus 3.9 Magnesium 3.1 H Total Bilirubin 2.5 H Direct Bilirubin GGT 96 H AST 204 H ALT 164 H D Alkaline Phosphatase 308 H D Total Protein 6.9 Albumin 3.5 Globulin 3.4 Albumin/Globulin Ratio 1.0 Venous Blood Potassium Hepatitis A IgM Ab Hep Bs Antigen Hep B Core IgM Ab Hepatitis C Antibody Blood Type Antibody Screen 05/31/18 05/31/18 08:15 08:15 WBC RBC Hgb Hct MCV MCH MCHC RDW Plt Count MPV Neut % (Auto) Lymph % (Auto) [place] % (Auto) Eos % (Auto) Baso % (Auto) Neut # (Auto) Lymph # (Auto) [place] # (Auto) Eos # (Auto) Baso # (Auto) Neutrophils % (Manual) Band Neutrophils % Lymphocytes % (Manual) Monocytes % (Manual) Platelet Estimate Large Platelets Giant Platelets Polychromasia Hypochromasia (manual) Anisocytosis (manual) PT INR APTT pO2 VBG pH VBG pCO2 VBG HCO3 VBG Total CO2 VBG O2 Sat (Calc) VBG Base Excess VBG Potassium Sodium Chloride Glucose Lactate Potassium Carbon Dioxide Anion Gap BUN Creatinine Est GFR ( Amer) Est GFR (Non-Af Amer) POC Glucose (mg/dL) Random Glucose Calcium Phosphorus Magnesium Total Bilirubin Direct Bilirubin 2.3 H GGT AST ALT Alkaline Phosphatase Total Protein Albumin Globulin Albumin/Globulin Ratio Venous Blood Potassium Hepatitis A IgM Ab Negative Hep Bs Antigen Negative Hep B Core IgM Ab Negative Hepatitis C Antibody Negative Blood Type Antibody Screen Assessment & Plan (1) Abdominal pain Status: Acute (2) Cholecystitis Status: Acute (3) CVA, old, dysarthria Status: Acute (4) Cholangitis Status: Acute (5) Diabetes mellitus Status: Chronic Priority: Medium (6) Hyperlipidemia Status: Chronic Priority: High (7) Hypertension Status: Chronic Priority: Medium - Assessment and Plan (Free Text) Assessment: sont IV antibiotics await cultures surgical eval ongoing for possible OR /cholecystectomy
--- NOTE | 2018-05-31 14:53 | CP.PCM.PN ---
<Jerry Rodriguez - Last Filed: 05/31/18 14:54> Subjective - Date & Time of Evaluation Date of Evaluation: 05/31/18 Time of Evaluation: 14:50 - Subjective Subjective: Surgery Progress note- Dr. Dorsey Patient seen and examined at bedside. had some nausea, non-bloody bilious vomiting this AM. Denies fevers, chills, chest pain, shortness of breath. Continuing to have abdominal pain Objective - Vital Signs/Intake and Output Vital Signs (last 24 hours): Temp Pulse Resp BP Pulse Ox 98.1 F 85 20 161/83 H 92 L 05/31/18 12:08 05/31/18 12:08 05/31/18 12:08 05/31/18 12:08 05/31/18 12:08 - Medications Medications: Current Medications Dextrose (Dextrose 50% Inj) 0 ml IV STAT PRN; Protocol PRN Reason: Hypoglycemia Protocol Dextrose (Glutose 15) 0 gm PO ONCE PRN; Protocol PRN Reason: Hypoglycemia Protocol Glucagon (Glucagen Diagnostic Kit) 0 mg IM STAT PRN; Protocol PRN Reason: Hypoglycemia Protocol Vancomycin/Sodium Chloride (Vancomycin 1 Gm/Ns 200 Ml) 1 gm in 200 mls @ 133 mls/hr IVPB Q12H [facility]; Protocol Stop: 06/05/18 00:16 Last Admin: 05/31/18 12:48 Dose: 133 mls/hr Meropenem 1 gm/ Sodium (Chloride) 100 mls @ 100 mls/hr IVPB Q8H [facility]; Protocol Last Admin: 05/31/18 10:30 Dose: 100 mls/hr Lactated Ringer's (Lactated Ringer's) 1,000 mls @ 100 mls/hr IV .Q10H [facility] Last Admin: 05/31/18 06:15 Dose: 100 mls/hr Dextrose (Dextrose 5% In Water 1000 Ml) 1,000 mls @ 0 mls/hr IV .Q0M [facility]; Protocol PRN Reason: Hypoglycemia Protocol Ibuprofen (Motrin Tab) 400 mg PO Q6H PRN PRN Reason: Fever >100.4 F Insulin Human Regular (Novolin R) 0 unit SC ACHS [facility]; Protocol Last Admin: 05/31/18 12:37 Dose: 2 units Losartan Potassium (Cozaar) 12.5 mg PO DAILY [facility] Last Admin: 05/31/18 11:00 Dose: Not Given Morphine Sulfate (Morphine) 2 mg IVP Q4 PRN PRN Reason: Pain, severe (8-10) Last Admin: 05/31/18 14:33 Dose: 2 mg Ondansetron HCl (Zofran Inj) 4 mg IVP Q4H PRN PRN Reason: Nausea/Vomiting Last Admin: 05/31/18 12:44 Dose: 4 mg - Labs Labs: 05/31/18 08:15 05/31/18 08:15 PT 16.3 SECONDS (9.7-12.2) H 05/31/18 08:15 INR 1.5 05/31/18 08:15 APTT 34 SECONDS (21-34) 05/31/18 08:15 - Constitutional Appears: Non-toxic, No Acute Distress - Head Exam Head Exam: ATRAUMATIC - Eye Exam Eye Exam: EOMI. absent: Scleral icterus - ENT Exam ENT Exam: Mucous Membranes Moist - Respiratory Exam Respiratory Exam: NORMAL BREATHING PATTERN. absent: Accessory Muscle Use, Respiratory Distress - Cardiovascular Exam Cardiovascular Exam: REGULAR RHYTHM. absent: Bradycardia, Tachycardia - GI/Abdominal Exam GI & Abdominal Exam: Soft, Tenderness (Tenderness to palpation in RUQ). absent: Distended, Firm, Guarding, Rigid - Extremities Exam Extremities Exam: absent: Calf Tenderness - Neurological Exam Neurological Exam: Alert, Awake, Oriented x3 - Psychiatric Exam Psychiatric exam: Normal Affect - Skin Skin Exam: Intact, Warm Assessment and Plan - Assessment and Plan (Free Text) Assessment: 67F Acute Cholecystitis Plan: - increase in T.Bili; MRCP ordered - c/s GI; f/u recs - NPO - IVF/Abx - monitor labs - serial abd exams - anti-emetic - d/w Dr. Dorsey surgical attending PGY2 <Anatoly Dorsey - Last Filed: 05/31/18 18:23> Objective - Vital Signs/Intake and Output Vital Signs (last 24 hours): Temp Pulse Resp BP Pulse Ox 98.1 F 84 20 123/77 95 05/31/18 15:37 05/31/18 15:37 05/31/18 15:37 05/31/18 15:37 05/31/18 15:37 Intake and Output: 05/31/18 05/31/18 06:59 18:59 Intake Total 800 Output Total 3 Balance 797 - Medications Medications: Current Medications Dextrose (Dextrose 50% Inj) 0 ml IV STAT PRN; Protocol PRN Reason: Hypoglycemia Protocol Dextrose (Glutose 15) 0 gm PO ONCE PRN; Protocol PRN Reason: Hypoglycemia Protocol Glucagon (Glucagen Diagnostic Kit) 0 mg IM STAT PRN; Protocol PRN Reason: Hypoglycemia Protocol Vancomycin/Sodium Chloride (Vancomycin 1 Gm/Ns 200 Ml) 1 gm in 200 mls @ 133 mls/hr IVPB Q12H [facility]; Protocol Stop: 06/05/18 00:16 Last Admin: 05/31/18 12:48 Dose: 133 mls/hr Meropenem 1 gm/ Sodium (Chloride) 100 mls @ 100 mls/hr IVPB Q8H [facility]; Protocol Last Admin: 05/31/18 16:37 Dose: 100 mls/hr Lactated Ringer's (Lactated Ringer's) 1,000 mls @ 100 mls/hr IV .Q10H [facility] Last Admin: 05/31/18 16:37 Dose: Not Given Dextrose (Dextrose 5% In Water 1000 Ml) 1,000 mls @ 0 mls/hr IV .Q0M [facility]; Protocol PRN Reason: Hypoglycemia Protocol Ibuprofen (Motrin Tab) 400 mg PO Q6H PRN PRN Reason: Fever >100.4 F Insulin Human Regular (Novolin R) 0 unit SC ACHS [facility]; Protocol Last Admin: 05/31/18 16:30 Dose: Not Given Losartan Potassium (Cozaar) 12.5 mg PO DAILY [facility] Last Admin: 05/31/18 11:00 Dose: Not Given Morphine Sulfate (Morphine) 2 mg IVP Q4 PRN PRN Reason: Pain, severe (8-10) Last Admin: 05/31/18 14:33 Dose: 2 mg Ondansetron HCl (Zofran Inj) 4 mg IVP Q4H PRN PRN Reason: Nausea/Vomiting Last Admin: 05/31/18 12:44 Dose: 4 mg - Labs Labs: 05/31/18 08:15 05/31/18 08:15 PT 16.3 SECONDS (9.7-12.2) H 05/31/18 08:15 INR 1.5 05/31/18 08:15 APTT 34 SECONDS (21-34) 05/31/18 08:15 Attending/Attestation - Attestation I have fully participated in the care of the patient.: Yes I have reviewed all pertinent clinical information, including history, physical exam and plan: Yes Notes (Text): Pt is improving clinically No abdominal Pain WBC is trending down MRCP in am GI consult C.w IV antibiotics c.w current mx Plan d.w pt in detail
[2018-06-01] MEDS: Meropenem 1 GM in Sodium Chloride 0.9% 100 ML IVPB SCH ×3 (01:08→17:00)
[2018-06-01] MEDS: Vancomycin 1 gm/NS 200 ml 1 GM/200 ML BAG IVPB SCH ×2 (02:00→12:02)
[2018-06-01 06:57] LABS: BASO # 0.1 K/uL (0.0-0.2); BASO % 0.3 % (0.0-2.0); EOS # 0.3 K/uL (0.0-0.7); EOS % 1.3 % (0.0-4.0); HEMOGLOBIN 11.2 g/dL (11.0-16.0); LYMPH # 0.8 K/uL (1.0-4.3); LYMPH % 4.2 % (20.0-40.0); MEAN CELL VOLUME 80.8 fL (81.0-99.0); MEAN CORPUSCULAR HEMOGLOBIN 26.4 pg (27.0-31.0); MEAN CORPUSCULAR HGB CONC 32.7 g/dL (33.0-37.0); MEAN PLATELET VOLUME 9.6 fL (7.2-11.7); MONO # 0.9 K/uL (0.0-0.8); MONO % 4.7 % (0.0-10.0); NEUT # 17.7 K/uL (1.8-7.0); NEUT % 89.5 % (50.0-75.0); PLATELET COUNT 388 K/uL (130-400); RBC 4.24 Mil/uL (3.80-5.20); RED CELL DISTRIBUTION WIDTH 15.7 % (11.5-14.5); WHITE BLOOD COUNT 19.8 K/uL (4.8-10.8)
[2018-06-01] MEDS: Lactated Ringer's 1,000 ML IV SCH ×4 (07:07→21:36)
[2018-06-01 07:17] LABS: ALBUMIN 3.2 g/dL (3.5-5.0); CALCIUM 8.9 mg/dl (8.6-10.4)
[2018-06-01] MEDS: (Novolin R) Insulin Human Regular 100 units/ml vial SC SCH ×4 (07:39→21:49)
--- NOTE | 2018-06-01 07:57 | CP.PCM.PN ---
<Bernadette Kmiball - Last Filed: 06/01/18 17:00> Subjective - Date & Time of Evaluation Date of Evaluation: 06/01/18 Time of Evaluation: 07:55 - Subjective Subjective: Surgery: Dr. Dorsey Patient complains of pain with palpation of the abdomen. -n/v/f/c overnight. Objective - Vital Signs/Intake and Output Vital Signs (last 24 hours): Temp Pulse Resp BP Pulse Ox 97.8 F 97 H 20 168/80 H 94 L 05/31/18 23:23 05/31/18 23:23 05/31/18 23:23 05/31/18 23:23 05/31/18 23:23 Intake and Output: 06/01/18 06/01/18 06:59 18:59 Intake Total 800 Balance 800 - Medications Medications: Current Medications Dextrose (Dextrose 50% Inj) 0 ml IV STAT PRN; Protocol PRN Reason: Hypoglycemia Protocol Dextrose (Glutose 15) 0 gm PO ONCE PRN; Protocol PRN Reason: Hypoglycemia Protocol Glucagon (Glucagen Diagnostic Kit) 0 mg IM STAT PRN; Protocol PRN Reason: Hypoglycemia Protocol Vancomycin/Sodium Chloride (Vancomycin 1 Gm/Ns 200 Ml) 1 gm in 200 mls @ 133 mls/hr IVPB Q12H [facility]; Protocol Stop: 06/05/18 00:16 Last Admin: 06/01/18 02:00 Dose: Not Given Meropenem 1 gm/ Sodium (Chloride) 100 mls @ 100 mls/hr IVPB Q8H [facility]; Protocol Last Admin: 06/01/18 01:08 Dose: 100 mls/hr Lactated Ringer's (Lactated Ringer's) 1,000 mls @ 100 mls/hr IV .Q10H [facility] Last Admin: 06/01/18 07:07 Dose: 100 mls/hr Dextrose (Dextrose 5% In Water 1000 Ml) 1,000 mls @ 0 mls/hr IV .Q0M PRN; Protocol PRN Reason: Hypoglycemia Protocol Ibuprofen (Motrin Tab) 400 mg PO Q6H PRN PRN Reason: Fever >100.4 F Insulin Human Regular (Novolin R) 0 unit SC ACHS [facility]; Protocol Last Admin: 06/01/18 07:39 Dose: Not Given Losartan Potassium (Cozaar) 12.5 mg PO DAILY [facility] Last Admin: 05/31/18 11:00 Dose: Not Given Morphine Sulfate (Morphine) 2 mg IVP Q4 PRN PRN Reason: Pain, severe (8-10) Last Admin: 05/31/18 14:33 Dose: 2 mg Ondansetron HCl (Zofran Inj) 4 mg IVP Q4H PRN PRN Reason: Nausea/Vomiting Last Admin: 05/31/18 12:44 Dose: 4 mg - Labs Labs: 06/01/18 06:44 06/01/18 06:44 PT 16.3 SECONDS (9.7-12.2) H 05/31/18 08:15 INR 1.5 05/31/18 08:15 APTT 34 SECONDS (21-34) 05/31/18 08:15 - Constitutional Appears: No Acute Distress - Head Exam Head Exam: ATRAUMATIC, NORMOCEPHALIC - Eye Exam Eye Exam: Normal appearance. absent: Scleral icterus - ENT Exam ENT Exam: Mucous Membranes Moist - Respiratory Exam Respiratory Exam: NORMAL BREATHING PATTERN. absent: Respiratory Distress - Cardiovascular Exam Cardiovascular Exam: REGULAR RHYTHM. absent: Tachycardia - GI/Abdominal Exam GI & Abdominal Exam: Soft, Tenderness (epigastric and R and L upper quadrants). absent: Distended, Guarding, Rigid, Rebound - Neurological Exam Neurological Exam: Alert, Awake - Skin Skin Exam: Dry, Normal Color, Warm Assessment and Plan - Assessment and Plan (Free Text) Assessment: 67 y/o female abdominal pain, cholecystitis r/o choledocholithiasis Plan: -f/u GI recs, MRCP vs ERCP -trend liver enzymes -NPO -IVFs -rec garrison placement for sepsis, DORIS and strict Is and Os -will follow, surgical planning pending GI evaluation -tentative OR Friday for cholecystectomy -further recs per Dr. Dorsey AKWHite PGY4 <Anatoly Dorsey - Last Filed: 06/03/18 17:20> Objective - Vital Signs/Intake and Output Vital Signs (last 24 hours): Temp Pulse Resp BP Pulse Ox 97.9 F 72 20 137/74 93 L 06/03/18 16:00 06/03/18 16:00 06/03/18 16:26 06/03/18 16:00 06/03/18 16:00 Intake and Output: 06/03/18 06/03/18 06:59 18:59 Intake Total 340 0 Balance 340 0 - Medications Medications: Current Medications Amlodipine Besylate (Norvasc) 10 mg PO DAILY [facility] Last Admin: 06/03/18 10:53 Dose: Not Given Carvedilol (Coreg) 6.25 mg PO BID [facility] Last Admin: 06/03/18 11:52 Dose: Not Given Dextrose (Dextrose 50% Inj) 0 ml IV STAT PRN; Protocol PRN Reason: Hypoglycemia Protocol Dextrose (Glutose 15) 0 gm PO ONCE PRN; Protocol PRN Reason: Hypoglycemia Protocol Enoxaparin Sodium (Lovenox) 30 mg SC DAILY [facility] Last Admin: 06/02/18 09:26 Dose: 30 mg Glucagon (Glucagen Diagnostic Kit) 0 mg IM STAT PRN; Protocol PRN Reason: Hypoglycemia Protocol Lactated Ringer's (Lactated Ringer's) 1,000 mls @ 100 mls/hr IV .Q10H [facility] Last Admin: 06/02/18 08:31 Dose: Not Given Meropenem 1 gm/ Sodium (Chloride) 100 mls @ 100 mls/hr IVPB Q12H [facility]; Protocol Last Admin: 06/03/18 13:39 Dose: 100 mls/hr Insulin Human Regular (Novolin R) 0 unit SC ACHS [facility]; Protocol Last Admin: 06/03/18 11:52 Dose: Not Given Losartan Potassium (Cozaar) 12.5 mg PO DAILY [facility] Last Admin: 06/02/18 09:26 Dose: 12.5 mg Morphine Sulfate (Morphine) 2 mg IVP Q4 PRN PRN Reason: Pain, severe (8-10) Last Admin: 06/02/18 14:39 Dose: 2 mg Ondansetron HCl (Zofran Inj) 4 mg IVP Q4H PRN PRN Reason: Nausea/Vomiting Last Admin: 05/31/18 12:44 Dose: 4 mg - Labs Labs: 06/03/18 06:31 06/03/18 06:31 PT 13.5 SECONDS (9.7-12.2) H 06/03/18 06:31 INR 1.2 06/03/18 06:31 APTT 34 SECONDS (21-34) 06/03/18 06:31 Attending/Attestation - Attestation I have personally seen and examined this patient.: Yes I have fully participated in the care of the patient.: Yes I have reviewed all pertinent clinical information, including history, physical exam and plan: Yes Notes (Text): Pt was seen and examined at bedside Agree with above note and assessment Pt is improving clinically Less abdominal Pain Labs is improving MRCP today c.w current mx Plan d.w pt in detail.
[2018-06-01 08:53] LABS: ANISOCYTOSIS SLIGHT; EOSINOPHIL 1 % (0-4); HYPOCHROMIC SLIGHT; LYMPHOCYTE 4 % (20-40); MONOCYTE 7 % (0-10); NEUTROPHIL 88 % (50-75); PLATELET ESTIMATE NORMAL (NORMAL); POIKILOCYTOSIS SLIGHT; TOTAL CELLS COUNTED 100
[2018-06-01] MEDS: Losartan 12.5 MG TAB PO SCH (09:45)
--- NOTE | 2018-06-01 13:33 | CP.PCM.PN ---
Subjective - Date & Time of Evaluation Date of Evaluation: 06/01/18 Time of Evaluation: 07:15 - Subjective Subjective: Patient seen and examined today No nausea No vomiting No fever No diarrhea No dizziness No shortness of breath Objective - Vital Signs/Intake and Output Vital Signs (last 24 hours): Temp Pulse Resp BP Pulse Ox 98.4 F 92 H 20 133/76 94 L 06/01/18 08:00 06/01/18 08:00 06/01/18 08:00 06/01/18 08:00 06/01/18 08:00 Intake and Output: 06/01/18 06/01/18 06:59 18:59 Intake Total 800 Balance 800 - Medications Medications: Current Medications Dextrose (Dextrose 50% Inj) 0 ml IV STAT PRN; Protocol PRN Reason: Hypoglycemia Protocol Dextrose (Glutose 15) 0 gm PO ONCE PRN; Protocol PRN Reason: Hypoglycemia Protocol Glucagon (Glucagen Diagnostic Kit) 0 mg IM STAT PRN; Protocol PRN Reason: Hypoglycemia Protocol Vancomycin/Sodium Chloride (Vancomycin 1 Gm/Ns 200 Ml) 1 gm in 200 mls @ 133 mls/hr IVPB Q12H [facility]; Protocol Stop: 06/05/18 00:16 Last Admin: 06/01/18 12:02 Dose: Not Given Meropenem 1 gm/ Sodium (Chloride) 100 mls @ 100 mls/hr IVPB Q8H [facility]; Protocol Last Admin: 06/01/18 09:45 Dose: 100 mls/hr Lactated Ringer's (Lactated Ringer's) 1,000 mls @ 100 mls/hr IV .Q10H [facility] Last Admin: 06/01/18 11:48 Dose: Not Given Dextrose (Dextrose 5% In Water 1000 Ml) 1,000 mls @ 0 mls/hr IV .Q0M PRN; Protocol PRN Reason: Hypoglycemia Protocol Insulin Human Regular (Novolin R) 0 unit SC ACHS [facility]; Protocol Last Admin: 06/01/18 11:27 Dose: Not Given Losartan Potassium (Cozaar) 12.5 mg PO DAILY [facility] Last Admin: 06/01/18 09:45 Dose: Not Given Morphine Sulfate (Morphine) 2 mg IVP Q4 PRN PRN Reason: Pain, severe (8-10) Last Admin: 05/31/18 14:33 Dose: 2 mg Ondansetron HCl (Zofran Inj) 4 mg IVP Q4H PRN PRN Reason: Nausea/Vomiting Last Admin: 05/31/18 12:44 Dose: 4 mg - Labs Labs: 06/01/18 06:44 06/01/18 06:44 PT 16.3 SECONDS (9.7-12.2) H 05/31/18 08:15 INR 1.5 05/31/18 08:15 APTT 34 SECONDS (21-34) 05/31/18 08:15 - Constitutional Appears: Well - Head Exam Head Exam: ATRAUMATIC, NORMAL INSPECTION, NORMOCEPHALIC - Eye Exam Eye Exam: EOMI, Normal appearance, PERRL Pupil Exam: NORMAL ACCOMODATION, PERRL - ENT Exam ENT Exam: Mucous Membranes Moist, Normal Exam - Neck Exam Neck Exam: Full ROM, Normal Inspection. absent: Lymphadenopathy - Respiratory Exam Respiratory Exam: Decreased Breath Sounds - Cardiovascular Exam Cardiovascular Exam: REGULAR RHYTHM, +S1, +S2 - GI/Abdominal Exam GI & Abdominal Exam: Soft, Diminished Bowel Sounds - Rectal Exam Rectal Exam: Deferred - Neurological Exam Neurological Exam: Oriented x3 Assessment and Plan (1) Abdominal pain Status: Acute (2) Cholecystitis Status: Acute (3) Nausea Status: Acute (4) CVA, old, dysarthria Status: Acute (5) Contusion Status: Acute (6) Hyperglycemia Status: Acute (7) Ischemic stroke Status: Acute (8) Slurring of speech Status: Acute (9) Toothache Status: Acute (10) UTI (urinary tract infection) Status: Acute (11) Diabetes mellitus Status: Chronic (12) Hyperlipidemia Status: Chronic (13) Hypertension Status: Chronic - Assessment and Plan (Free Text) Plan: medications reviewed labs reviewed vitals reviewed
--- NOTE | 2018-06-01 14:14 | CP.PCM.CON ---
<Sergio Garsia - Last Filed: 06/01/18 14:07> History of Present Illness - History of Present Illness History of Present Illness: GI Fellow PGY4, consult note. Zuleyka Neely is a 67F with history of CVA, DM, HTN presenting with acute abdominal pain. Patient's pain started this past Friday with severe RUQ pain that was sharp. The pain was worse with food, movement. She had associated v omiting, non bloody. She denied fever, diarrhea, dysphagia. At time of admission, workup showed HDS and afebrile, significant leukocytosis, elevated liver tests, and imaging showing distended gallbladder and likely cholecystitis. CBD normal. There was concern for cholangitis. Merrem and vanco started. PMHx - as above. PSHx - appendectomy, FMHx - no GI related cancers SocHx - lives with daughters, denies tobacco, alcohol use. 12pt ROS completed and negative except for above. 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) Other/Comment: h/o CVA 2003 - HEENT Hx HEENT Problems: Yes Other/Comment: RT EYE PROSTHESIS - ENDOCRINE/METABOLIC Hx Endocrine Disorders: Yes Hx Diabetes Mellitus Type 2: Yes - HEMATOLOGICAL/ONCOLOGICAL Hx Human Immunodeficiency Virus (HIV): No - MUSCULOSKELETAL/RHEUMATOLOGICAL Hx Falls: No - GASTROINTESTINAL Hx Constipation: Yes - PSYCHIATRIC Hx Substance Use: No - SURGICAL HISTORY Hx Appendectomy: Yes - ANESTHESIA Hx Anesthesia: Yes Hx Anesthesia Reactions: No Hx Malignant Hyperthermia: No Meds Allergies/Adverse Reactions: Allergies Allergy/AdvReac Type Severity Reaction Status Date / Time No Known Allergies Allergy Verified 05/30/18 11:27 - Medications Medications: Current Medications Dextrose (Dextrose 50% Inj) 0 ml IV STAT PRN; Protocol PRN Reason: Hypoglycemia Protocol Dextrose (Glutose 15) 0 gm PO ONCE PRN; Protocol PRN Reason: Hypoglycemia Protocol Glucagon (Glucagen Diagnostic Kit) 0 mg IM STAT PRN; Protocol PRN Reason: Hypoglycemia Protocol Vancomycin/Sodium Chloride (Vancomycin 1 Gm/Ns 200 Ml) 1 gm in 200 mls @ 133 mls/hr IVPB Q12H [facility]; Protocol Stop: 06/05/18 00:16 Last Admin: 06/01/18 12:02 Dose: Not Given Meropenem 1 gm/ Sodium (Chloride) 100 mls @ 100 mls/hr IVPB Q8H [facility]; Protocol Last Admin: 06/01/18 09:45 Dose: 100 mls/hr Lactated Ringer's (Lactated Ringer's) 1,000 mls @ 100 mls/hr IV .Q10H [facility] Last Admin: 06/01/18 11:48 Dose: Not Given Dextrose (Dextrose 5% In Water 1000 Ml) 1,000 mls @ 0 mls/hr IV .Q0M PRN; Protocol PRN Reason: Hypoglycemia Protocol Insulin Human Regular (Novolin R) 0 unit SC ACHS [facility]; Protocol Last Admin: 06/01/18 11:27 Dose: Not Given Losartan Potassium (Cozaar) 12.5 mg PO DAILY [facility] Last Admin: 06/01/18 09:45 Dose: Not Given Morphine Sulfate (Morphine) 2 mg IVP Q4 PRN PRN Reason: Pain, severe (8-10) Last Admin: 05/31/18 14:33 Dose: 2 mg Ondansetron HCl (Zofran Inj) 4 mg IVP Q4H PRN PRN Reason: Nausea/Vomiting Last Admin: 05/31/18 12:44 Dose: 4 mg Physical Exam - Constitutional Appears: Non-toxic, No Acute Distress - Eye Exam Eye Exam: EOMI, Normal appearance - ENT Exam ENT Exam: Mucous Membranes Moist, Normal Exam - Respiratory Exam Respiratory Exam: Clear to Auscultation Bilateral, NORMAL BREATHING PATTERN - Cardiovascular Exam Cardiovascular Exam: REGULAR RHYTHM, +S1, +S2 - GI/Abdominal Exam GI & Abdominal Exam: Hypoactive Bowel Sounds, Soft, Tenderness. absent: Guarding, Organomegaly - Extremities Exam Extremities exam: Positive for: normal inspection. Negative for: pedal edema - Neurological Exam Neurological exam: Alert Additional comments: right sided face droop - Psychiatric Exam Psychiatric exam: Normal Affect, Normal Mood - Skin Skin Exam: Normal Color, Warm Results - Vital Signs Recent Vital Signs: Last Vital Signs Temp 98.4 F 06/01/18 08:00 Pulse 92 H 06/01/18 08:00 Resp 20 06/01/18 08:00 BP 133/76 06/01/18 08:00 Pulse Ox 94 L 06/01/18 08:00 - Labs Result Diagrams: 06/01/18 06:44 06/01/18 06:44 Labs: Laboratory Results - last 24 hr 05/31/18 05/31/18 05/31/18 11:29 15:57 20:56 WBC RBC Hgb Hct MCV MCH MCHC RDW Plt Count MPV Neut % (Auto) Lymph % (Auto) [place] % (Auto) Eos % (Auto) Baso % (Auto) Neut # (Auto) Lymph # (Auto) [place] # (Auto) Eos # (Auto) Baso # (Auto) Neutrophils % (Manual) Lymphocytes % (Manual) Monocytes % (Manual) Eosinophils % (Manual) Platelet Estimate Hypochromasia (manual) Poikilocytosis (manual Anisocytosis (manual) Sodium Potassium Chloride Carbon Dioxide Anion Gap BUN Creatinine Est GFR ( Amer) Est GFR (Non-Af Amer) POC Glucose (mg/dL) 197 H 158 H 174 H Random Glucose Calcium Phosphorus Magnesium Total Bilirubin AST ALT Alkaline Phosphatase Total Protein Albumin Globulin Albumin/Globulin Ratio Vancomycin Trough 06/01/18 06/01/18 06/01/18 00:13 06:44 06:44 WBC 19.8 H RBC 4.24 Hgb 11.2 Hct 34.3 MCV 80.8 L MCH 26.4 L MCHC 32.7 L RDW 15.7 H Plt Count 388 MPV 9.6 Neut % (Auto) 89.5 H Lymph % (Auto) 4.2 L [place] % (Auto) 4.7 Eos % (Auto) 1.3 Baso % (Auto) 0.3 Neut # (Auto) 17.7 H Lymph # (Auto) 0.8 L [place] # (Auto) 0.9 H Eos # (Auto) 0.3 Baso # (Auto) 0.1 Neutrophils % (Manual) 88 H Lymphocytes % (Manual) 4 L Monocytes % (Manual) 7 Eosinophils % (Manual) 1 Platelet Estimate Normal Hypochromasia (manual) Slight Poikilocytosis (manual Slight Anisocytosis (manual) Slight Sodium 143 Potassium 3.8 Chloride 110 H Carbon Dioxide 24 Anion Gap 13 BUN 36 H Creatinine 2.2 H Est GFR ( Amer) 27 Est GFR (Non-Af Amer) 22 POC Glucose (mg/dL) Random Glucose 171 H Calcium 8.9 Phosphorus 3.5 Magnesium 3.0 H Total Bilirubin 2.0 H AST 64 H D ALT 85 H D Alkaline Phosphatase 288 H Total Protein 6.4 Albumin 3.2 L Globulin 3.2 Albumin/Globulin Ratio 1.0 Vancomycin Trough 28.1 H 06/01/18 06/01/18 07:24 11:15 WBC RBC Hgb Hct MCV MCH MCHC RDW Plt Count MPV Neut % (Auto) Lymph % (Auto) [place] % (Auto) Eos % (Auto) Baso % (Auto) Neut # (Auto) Lymph # (Auto) [place] # (Auto) Eos # (Auto) Baso # (Auto) Neutrophils % (Manual) Lymphocytes % (Manual) Monocytes % (Manual) Eosinophils % (Manual) Platelet Estimate Hypochromasia (manual) Poikilocytosis (manual Anisocytosis (manual) Sodium Potassium Chloride Carbon Dioxide Anion Gap BUN Creatinine Est GFR ( Amer) Est GFR (Non-Af Amer) POC Glucose (mg/dL) 185 H 176 H Random Glucose Calcium Phosphorus Magnesium Total Bilirubin AST ALT Alkaline Phosphatase Total Protein Albumin Globulin Albumin/Globulin Ratio Vancomycin Trough Assessment & Plan - Assessment and Plan (Free Text) Assessment: #Acute cholecystitis #Abnormal liver tests #CVA #DM #HTN PLAN: -CT, US and MRCP reviewed showing distended GB, thickened wall and evidence of cholecystitis but not choledocolithiasis. -Liver tests trending down -Recommend lap kleber and IOC -Antibiotics per ID. Vanco can be discontinued. -Diet per surgery -monitor liver tests and CBC Case discussed with Dr. Valdez, see attestation. - Date & Time Date: 06/01/18 Time: 14:15 <Alexsandra Valdez - Last Filed: 06/01/18 14:39> Meds - Medications Medications: Current Medications Dextrose (Dextrose 50% Inj) 0 ml IV STAT PRN; Protocol PRN Reason: Hypoglycemia Protocol Dextrose (Glutose 15) 0 gm PO ONCE PRN; Protocol PRN Reason: Hypoglycemia Protocol Glucagon (Glucagen Diagnostic Kit) 0 mg IM STAT PRN; Protocol PRN Reason: Hypoglycemia Protocol Vancomycin/Sodium Chloride (Vancomycin 1 Gm/Ns 200 Ml) 1 gm in 200 mls @ 133 mls/hr IVPB Q12H [facility]; Protocol Stop: 06/05/18 00:16 Last Admin: 06/01/18 12:02 Dose: Not Given Meropenem 1 gm/ Sodium (Chloride) 100 mls @ 100 mls/hr IVPB Q8H [facility]; Protocol Last Admin: 06/01/18 09:45 Dose: 100 mls/hr Lactated Ringer's (Lactated Ringer's) 1,000 mls @ 100 mls/hr IV .Q10H [facility] Last Admin: 06/01/18 11:48 Dose: Not Given Dextrose (Dextrose 5% In Water 1000 Ml) 1,000 mls @ 0 mls/hr IV .Q0M [facility]; Protocol PRN Reason: Hypoglycemia Protocol Insulin Human Regular (Novolin R) 0 unit SC ACHS [facility]; Protocol Last Admin: 06/01/18 11:27 Dose: Not Given Losartan Potassium (Cozaar) 12.5 mg PO DAILY [facility] Last Admin: 06/01/18 09:45 Dose: Not Given Morphine Sulfate (Morphine) 2 mg IVP Q4 PRN PRN Reason: Pain, severe (8-10) Last Admin: 05/31/18 14:33 Dose: 2 mg Ondansetron HCl (Zofran Inj) 4 mg IVP Q4H PRN PRN Reason: Nausea/Vomiting Last Admin: 05/31/18 12:44 Dose: 4 mg Results - Vital Signs Recent Vital Signs: Last Vital Signs Temp 98.4 F 06/01/18 08:00 Pulse 92 H 06/01/18 08:00 Resp 20 06/01/18 08:00 BP 133/76 06/01/18 08:00 Pulse Ox 94 L 06/01/18 08:00 - Labs Result Diagrams: 06/01/18 06:44 06/01/18 06:44 Labs: Laboratory Results - last 24 hr 05/31/18 05/31/18 05/31/18 11:29 15:57 20:56 WBC RBC Hgb Hct MCV MCH MCHC RDW Plt Count MPV Neut % (Auto) Lymph % (Auto) [place] % (Auto) Eos % (Auto) Baso % (Auto) Neut # (Auto) Lymph # (Auto) [place] # (Auto) Eos # (Auto) Baso # (Auto) Neutrophils % (Manual) Lymphocytes % (Manual) Monocytes % (Manual) Eosinophils % (Manual) Platelet Estimate Hypochromasia (manual) Poikilocytosis (manual Anisocytosis (manual) Sodium Potassium Chloride Carbon Dioxide Anion Gap BUN Creatinine Est GFR ( Amer) Est GFR (Non-Af Amer) POC Glucose (mg/dL) 197 H 158 H 174 H Random Glucose Calcium Phosphorus Magnesium Total Bilirubin AST ALT Alkaline Phosphatase Total Protein Albumin Globulin Albumin/Globulin Ratio Vancomycin Trough 06/01/18 06/01/18 06/01/18 00:13 06:44 06:44 WBC 19.8 H RBC 4.24 Hgb 11.2 Hct 34.3 MCV 80.8 L MCH 26.4 L MCHC 32.7 L RDW 15.7 H Plt Count 388 MPV 9.6 Neut % (Auto) 89.5 H Lymph % (Auto) 4.2 L [place] % (Auto) 4.7 Eos % (Auto) 1.3 Baso % (Auto) 0.3 Neut # (Auto) 17.7 H Lymph # (Auto) 0.8 L [place] # (Auto) 0.9 H Eos # (Auto) 0.3 Baso # (Auto) 0.1 Neutrophils % (Manual) 88 H Lymphocytes % (Manual) 4 L Monocytes % (Manual) 7 Eosinophils % (Manual) 1 Platelet Estimate Normal Hypochromasia (manual) Slight Poikilocytosis (manual Slight Anisocytosis (manual) Slight Sodium 143 Potassium 3.8 Chloride 110 H Carbon Dioxide 24 Anion Gap 13 BUN 36 H Creatinine 2.2 H Est GFR ( Amer) 27 Est GFR (Non-Af Amer) 22 POC Glucose (mg/dL) Random Glucose 171 H Calcium 8.9 Phosphorus 3.5 Magnesium 3.0 H Total Bilirubin 2.0 H AST 64 H D ALT 85 H D Alkaline Phosphatase 288 H Total Protein 6.4 Albumin 3.2 L Globulin 3.2 Albumin/Globulin Ratio 1.0 Vancomycin Trough 28.1 H 06/01/18 06/01/18 07:24 11:15 WBC RBC Hgb Hct MCV MCH MCHC RDW Plt Count MPV Neut % (Auto) Lymph % (Auto) [place] % (Auto) Eos % (Auto) Baso % (Auto) Neut # (Auto) Lymph # (Auto) [place] # (Auto) Eos # (Auto) Baso # (Auto) Neutrophils % (Manual) Lymphocytes % (Manual) Monocytes % (Manual) Eosinophils % (Manual) Platelet Estimate Hypochromasia (manual) Poikilocytosis (manual Anisocytosis (manual) Sodium Potassium Chloride Carbon Dioxide Anion Gap BUN Creatinine Est GFR ( Amer) Est GFR (Non-Af Amer) POC Glucose (mg/dL) 185 H 176 H Random Glucose Calcium Phosphorus Magnesium Total Bilirubin AST ALT Alkaline Phosphatase Total Protein Albumin Globulin Albumin/Globulin Ratio Vancomycin Trough Attending/Attestation - Attestation I have personally seen and examined this patient.: Yes I have fully participated in the care of the patient.: Yes I have reviewed all pertinent clinical information: Yes Notes (Text): 06/01/18 14:25 I have seen and examined the patient with the GI fellow. In brief, this is a 67 yo [place] speaking with PMH of DM, HTN, h/o CVA who p/w severe RUQ abdominal pain found to have likely acute cholecystitis, but with intermittent LFT increase, GI consulted to r/o choledocholithiasis and need for ERCP. Pt notes she is slightly improved today, but still with RUQ abdominal pain. On meropenem and vancomycin. LFTs downtrending. General: NAD, lying in bed Abd: soft, tender in RUQ, + [place]'s sign Plan: -await official MRCP read but but CBD appears normal on my read -Tbili downtrending -no need for ERCP -would proceed with lap kleber w/ IOC as per surgical team -d/w pt's daughter at bedside 06/01/18 14:38
--- NOTE | 2018-06-01 14:58 | MRI ---
MRCP Indication: Choledocholithiasis Technique: Multiplanar, multisequence MR images of the abdomen were obtained, including heavily T2 weighted MRCP images of the biliary system. Rotating maximum intensity projection images of the biliary system were generated. A total of images were submitted for review. Comparison: Abdominal ultrasound performed 05/30/18, CT abdomen and pelvis without contrast performed 05/30/18 Findings: Examination limited by patient motion. Gallbladder appears distended. Gallbladder wall thickening/pericholecystic edema and upper quadrant inflammatory stranding. No gallstones appreciated. There is no intrahepatic biliary ductal dilatation. The common bile duct appears within normal limits in caliber and tapers distally. The pancreatic duct appears within normal limits of caliber. No filling defects are seen in the common bile duct or pancreatic duct. Bilateral renal atrophy/cortical thickening. Probable left renal cysts. No hydronephrosis. Fatty atrophy of the pancreas. The limited included noncontrast liver, adrenal glands, and spleen appear unremarkable. No bulky abdominal lymphadenopathy is seen. Small right pleural effusion. Bibasilar atelectasis. Degenerative changes of the spine most prominent at the included lumbar spine L4-L5. Impression: No filling defects seen within the common bile duct which appears within normal limits of caliber. Distended gallbladder with evidence of wall thickening and pericholecystic edema/upper quadrant inflammatory stranding; correlate clinically for acute cholecystitis. Bilateral renal atrophy/cortical thickening. Probable left renal cysts. No hydronephrosis. Fatty atrophy of the pancreas. Small right pleural effusion. Bibasilar atelectasis.
[2018-06-01 17:22] LABS: ABG ALLEN TEST POS; ARTERIAL BLOOD GAS HCO3 23.7 mmol/L (21-28); ARTERIAL BLOOD GAS HEMOGLOBIN 10.3 g/dL (11.7-17.4); ARTERIAL BLOOD GAS PCO2 36 mm/Hg (35-45); ARTERIAL BLOOD GAS PH 7.41 (7.35-7.45); ARTERIAL BLOOD GAS PO2 71 mm/Hg (80-100); ARTERIAL BLOOD GAS TCO2 23.9 mmol/L (22-28)
--- NOTE | 2018-06-01 22:49 | CP.PCM.PN ---
Subjective - Date & Time of Evaluation Date of Evaluation: 06/01/18 Time of Evaluation: 09:00 - Subjective Subjective: WBC trending down afebrile Objective - Vital Signs/Intake and Output Vital Signs (last 24 hours): Temp Pulse Resp BP Pulse Ox 98.6 F 93 H 20 169/84 H 95 06/01/18 16:00 06/01/18 16:00 06/01/18 16:00 06/01/18 16:00 06/01/18 16:00 Intake and Output: 06/01/18 06/02/18 18:59 06:59 Intake Total 1250 Balance 1250 - Medications Medications: Current Medications Dextrose (Dextrose 50% Inj) 0 ml IV STAT PRN; Protocol PRN Reason: Hypoglycemia Protocol Dextrose (Glutose 15) 0 gm PO ONCE PRN; Protocol PRN Reason: Hypoglycemia Protocol Glucagon (Glucagen Diagnostic Kit) 0 mg IM STAT PRN; Protocol PRN Reason: Hypoglycemia Protocol Vancomycin/Sodium Chloride (Vancomycin 1 Gm/Ns 200 Ml) 1 gm in 200 mls @ 133 mls/hr IVPB Q12H [facility]; Protocol Stop: 06/05/18 00:16 Last Admin: 06/01/18 12:02 Dose: Not Given Meropenem 1 gm/ Sodium (Chloride) 100 mls @ 100 mls/hr IVPB Q8H [facility]; Protocol Last Admin: 06/01/18 17:00 Dose: 100 mls/hr Lactated Ringer's (Lactated Ringer's) 1,000 mls @ 100 mls/hr IV .Q10H [facility] Last Admin: 06/01/18 21:36 Dose: Not Given Dextrose (Dextrose 5% In Water 1000 Ml) 1,000 mls @ 0 mls/hr IV .Q0M PRN; Protocol PRN Reason: Hypoglycemia Protocol Insulin Human Regular (Novolin R) 0 unit SC ACHS [facility]; Protocol Last Admin: 06/01/18 21:49 Dose: Not Given Losartan Potassium (Cozaar) 12.5 mg PO DAILY [facility] Last Admin: 06/01/18 09:45 Dose: Not Given Morphine Sulfate (Morphine) 2 mg IVP Q4 PRN PRN Reason: Pain, severe (8-10) Last Admin: 05/31/18 14:33 Dose: 2 mg Ondansetron HCl (Zofran Inj) 4 mg IVP Q4H PRN PRN Reason: Nausea/Vomiting Last Admin: 05/31/18 12:44 Dose: 4 mg - Labs Labs: 06/01/18 06:44 06/01/18 06:44 PT 16.3 SECONDS (9.7-12.2) H 05/31/18 08:15 INR 1.5 05/31/18 08:15 APTT 34 SECONDS (21-34) 05/31/18 08:15 - Constitutional Appears: Non-toxic, Chronically Ill - Head Exam Head Exam: NORMOCEPHALIC - Eye Exam Eye Exam: absent: Scleral icterus Pupil Exam: NORMAL ACCOMODATION - ENT Exam ENT Exam: Mucous Membranes Dry - Respiratory Exam Respiratory Exam: Decreased Breath Sounds, Rhonchi - Cardiovascular Exam Cardiovascular Exam: REGULAR RHYTHM - GI/Abdominal Exam GI & Abdominal Exam: Distended, Soft, Tenderness - Rectal Exam Rectal Exam: Deferred - Exam Exam: NORMAL INSPECTION - Extremities Exam Extremities Exam: absent: Pedal Edema - Back Exam Back Exam: absent: paraspinal tenderness - Neurological Exam Neurological Exam: Alert, Awake Assessment and Plan (1) Abdominal pain Status: Acute (2) Cholecystitis Status: Acute (3) CVA, old, dysarthria Status: Acute (4) Cholangitis Status: Acute (5) Diabetes mellitus Status: Chronic (6) Hyperlipidemia Status: Chronic (7) Hypertension Status: Chronic - Assessment and Plan (Free Text) Assessment: cont IV rx vanco on hold IV Merrem to con t for lap-choly
[2018-06-02] MEDS: Vancomycin 1 gm/NS 200 ml 1 GM/200 ML BAG IVPB SCH (00:27)
[2018-06-02] MEDS: Meropenem 1 GM in Sodium Chloride 0.9% 100 ML IVPB SCH ×2 (00:34→14:31)
--- NOTE | 2018-06-02 07:55 | RAD ---
Date of service: 06/02/2018 HISTORY: sob COMPARISON: 08/22/2017 TECHNIQUE: 1 view obtained. FINDINGS: LUNGS: Low lung volumes-similar. Interval right basal opacification interval increased right perihilar bronchovascular marking prominence. Interval moderate right pleural effusion with passive compressive atelectasis right lung base with or without infiltrate right perihilar air bronchograms noted an a trace left interval pleural effusion are inferred. Some minimal concomitant right infrahilar perihilar thickening subsegmental contents consolidation also possible given interval increased air bronchograms here noted as well. PLEURA: Interval moderate right pleural effusion. Interval trace left pleural effusion. No pneumothorax. CARDIOVASCULAR: No aortic atherosclerotic calcification present. Mild cardiomegaly. Interval increased pulmonary venous congestion. OSSEOUS STRUCTURES: Thoracic spondylosis. VISUALIZED UPPER ABDOMEN: Normal. OTHER FINDINGS: None. IMPRESSION: Interval moderate right pleural effusion and trace left pleural effusion. Interval right basal compressive atelectasis with or without infiltrate. Lesser left infrahilar medial basal subsegmental atelectasis and or infiltrate as well. Cardiomegaly-similar. Interval increased pulmonary venous congestion.
[2018-06-02] MEDS: Lactated Ringer's 1,000 ML IV SCH (08:31)
--- NOTE | 2018-06-02 08:32 | CP.PCM.PN ---
<Rubi Hill - Last Filed: 06/02/18 08:50> Subjective - Date & Time of Evaluation Date of Evaluation: 06/02/18 Time of Evaluation: 07:20 - Subjective Subjective: General Surgery progress note for Dr. Dorsey Patient seen and examined this am at bedside. feeling well, tolerating diet. Denies abdominal pain, n/v, f/c. Objective - Vital Signs/Intake and Output Vital Signs (last 24 hours): Temp Pulse Resp BP Pulse Ox 96.1 F L 84 20 200/76 H 95 06/02/18 06:45 06/02/18 06:45 06/02/18 06:45 06/02/18 06:45 06/02/18 06:45 Intake and Output: 06/02/18 06/02/18 06:59 18:59 Intake Total 1250 Balance 1250 - Medications Medications: Current Medications Dextrose (Dextrose 50% Inj) 0 ml IV STAT PRN; Protocol PRN Reason: Hypoglycemia Protocol Dextrose (Glutose 15) 0 gm PO ONCE PRN; Protocol PRN Reason: Hypoglycemia Protocol Enoxaparin Sodium (Lovenox) 40 mg SC DAILY [facility] Glucagon (Glucagen Diagnostic Kit) 0 mg IM STAT PRN; Protocol PRN Reason: Hypoglycemia Protocol Vancomycin/Sodium Chloride (Vancomycin 1 Gm/Ns 200 Ml) 1 gm in 200 mls @ 133 m ls/hr IVPB Q12H [facility]; Protocol Stop: 06/05/18 00:16 Last Admin: 06/02/18 00:27 Dose: Not Given Meropenem 1 gm/ Sodium (Chloride) 100 mls @ 100 mls/hr IVPB Q8H [facility]; Protocol Last Admin: 06/02/18 00:34 Dose: 100 mls/hr Lactated Ringer's (Lactated Ringer's) 1,000 mls @ 100 mls/hr IV .Q10H [facility] Last Admin: 06/01/18 21:36 Dose: Not Given Dextrose (Dextrose 5% In Water 1000 Ml) 1,000 mls @ 0 mls/hr IV .Q0M PRN; Protocol PRN Reason: Hypoglycemia Protocol Insulin Human Regular (Novolin R) 0 unit SC ACHS [facility]; Protocol Last Admin: 06/01/18 21:49 Dose: Not Given Losartan Potassium (Cozaar) 12.5 mg PO DAILY [facility] Last Admin: 06/01/18 09:45 Dose: Not Given Morphine Sulfate (Morphine) 2 mg IVP Q4 PRN PRN Reason: Pain, severe (8-10) Last Admin: 06/02/18 06:51 Dose: 2 mg Ondansetron HCl (Zofran Inj) 4 mg IVP Q4H PRN PRN Reason: Nausea/Vomiting Last Admin: 05/31/18 12:44 Dose: 4 mg - Labs Labs: 06/01/18 06:44 06/01/18 06:44 PT 16.3 SECONDS (9.7-12.2) H 05/31/18 08:15 INR 1.5 05/31/18 08:15 APTT 34 SECONDS (21-34) 05/31/18 08:15 - Constitutional Appears: Well, Non-toxic, No Acute Distress, Chronically Ill - Head Exam Head Exam: ATRAUMATIC, NORMOCEPHALIC - Eye Exam Eye Exam: EOMI Additional comments: right sided eyelid droop - ENT Exam ENT Exam: Mucous Membranes Moist - Respiratory Exam Respiratory Exam: NORMAL BREATHING PATTERN. absent: Accessory Muscle Use, Respiratory Distress - Cardiovascular Exam Cardiovascular Exam: REGULAR RHYTHM - GI/Abdominal Exam GI & Abdominal Exam: Soft, Tenderness (RUQ). absent: Rebound - Extremities Exam Extremities Exam: absent: Calf Tenderness, Pedal Edema - Neurological Exam Neurological Exam: Alert, Awake, Oriented x3 - Psychiatric Exam Psychiatric exam: Normal Affect, Normal Mood - Skin Skin Exam: Dry, Intact, Normal Color, Warm Assessment and Plan - Assessment and Plan (Free Text) Assessment: 67 y/o female abdominal pain, cholecystitis Plan: -trend liver enzymes -NPO past midnight -IVFs -rec garrison placement for sepsis, DORIS and strict Is and Os - plan for OR , will attempt to call patient's daughter again today to discuss -further recs per Dr. Sunita Hill, PGY 1 <Anatoly Dorsey - Last Filed: 06/03/18 17:22> Objective - Vital Signs/Intake and Output Vital Signs (last 24 hours): Temp Pulse Resp BP Pulse Ox 97.9 F 72 20 137/74 93 L 06/03/18 16:00 06/03/18 16:00 06/03/18 16:26 06/03/18 16:00 06/03/18 16:00 Intake and Output: 06/03/18 06/03/18 06:59 18:59 Intake Total 340 0 Balance 340 0 - Medications Medications: Current Medications Amlodipine Besylate (Norvasc) 10 mg PO DAILY [facility] Last Admin: 06/03/18 10:53 Dose: Not Given Carvedilol (Coreg) 6.25 mg PO BID [facility] Last Admin: 06/03/18 11:52 Dose: Not Given Dextrose (Dextrose 50% Inj) 0 ml IV STAT PRN; Protocol PRN Reason: Hypoglycemia Protocol Dextrose (Glutose 15) 0 gm PO ONCE PRN; Protocol PRN Reason: Hypoglycemia Protocol Enoxaparin Sodium (Lovenox) 30 mg SC DAILY [facility] Last Admin: 06/02/18 09:26 Dose: 30 mg Glucagon (Glucagen Diagnostic Kit) 0 mg IM STAT PRN; Protocol PRN Reason: Hypoglycemia Protocol Lactated Ringer's (Lactated Ringer's) 1,000 mls @ 100 mls/hr IV .Q10H [facility] Last Admin: 06/02/18 08:31 Dose: Not Given Meropenem 1 gm/ Sodium (Chloride) 100 mls @ 100 mls/hr IVPB Q12H [facility]; Protocol Last Admin: 06/03/18 13:39 Dose: 100 mls/hr Insulin Human Regular (Novolin R) 0 unit SC ACHS [facility]; Protocol Last Admin: 06/03/18 11:52 Dose: Not Given Losartan Potassium (Cozaar) 12.5 mg PO DAILY [facility] Last Admin: 06/02/18 09:26 Dose: 12.5 mg Morphine Sulfate (Morphine) 2 mg IVP Q4 PRN PRN Reason: Pain, severe (8-10) Last Admin: 06/02/18 14:39 Dose: 2 mg Ondansetron HCl (Zofran Inj) 4 mg IVP Q4H PRN PRN Reason: Nausea/Vomiting Last Admin: 05/31/18 12:44 Dose: 4 mg - Labs Labs: 06/03/18 06:31 06/03/18 06:31 PT 13.5 SECONDS (9.7-12.2) H 06/03/18 06:31 INR 1.2 06/03/18 06:31 APTT 34 SECONDS (21-34) 06/03/18 06:31 Attending/Attestation - Attestation I have personally seen and examined this patient.: Yes I have fully participated in the care of the patient.: Yes I have reviewed all pertinent clinical information, including history, physical exam and plan: Yes Notes (Text): Pt was seen and examined at bedside Agree with above note and assessment Pt is stable clinically MRCP is negative for CBD stone OR for Lap Cholecystectomy tomorrow Consent Medical clearance NPO, IVF Plan d.w pt in detail. Risk and benefit explained in detail.
[2018-06-02] MEDS: (Novolin R) Insulin Human Regular 100 units/ml vial SC SCH ×4 (08:33→22:00)
--- NOTE | 2018-06-02 09:01 | CP.PCM.PN ---
<Sergio Garsia - Last Filed: 06/02/18 11:29> Subjective - Date & Time of Evaluation Date of Evaluation: 06/02/18 Time of Evaluation: 08:59 - Subjective Subjective: GI Fellow PGY4, progress note. No acute events overnight. Pain controlled. Passing BMs, flatus. Objective - Vital Signs/Intake and Output Vital Signs (last 24 hours): Temp Pulse Resp BP Pulse Ox 96.1 F L 84 20 200/76 H 95 06/02/18 06:45 06/02/18 06:45 06/02/18 06:45 06/02/18 06:45 06/02/18 06:45 Intake and Output: 06/02/18 06/02/18 06:59 18:59 Intake Total 1250 700 Output Total 1 Balance 1250 699 - Medications Medications: Current Medications Dextrose (Dextrose 50% Inj) 0 ml IV STAT PRN; Protocol PRN Reason: Hypoglycemia Protocol Dextrose (Glutose 15) 0 gm PO ONCE PRN; Protocol PRN Reason: Hypoglycemia Protocol Enoxaparin Sodium (Lovenox) 40 mg SC DAILY [facility] Glucagon (Glucagen Diagnostic Kit) 0 mg IM STAT PRN; Protocol PRN Reason: Hypoglycemia Protocol Vancomycin/Sodium Chloride (Vancomycin 1 Gm/Ns 200 Ml) 1 gm in 200 mls @ 133 mls/hr IVPB Q12H [facility]; Protocol Stop: 06/05/18 00:16 Last Admin: 06/02/18 00:27 Dose: Not Given Meropenem 1 gm/ Sodium (Chloride) 100 mls @ 100 mls/hr IVPB Q8H [facility]; Protocol Last Admin: 06/02/18 00:34 Dose: 100 mls/hr Lactated Ringer's (Lactated Ringer's) 1,000 mls @ 100 mls/hr IV .Q10H [facility] Last Admin: 06/02/18 08:31 Dose: Not Given Dextrose (Dextrose 5% In Water 1000 Ml) 1,000 mls @ 0 mls/hr IV .Q0M PRN; Protocol PRN Reason: Hypoglycemia Protocol Insulin Human Regular (Novolin R) 0 unit SC ACHS [facility]; Protocol Last Admin: 06/02/18 08:33 Dose: Not Given Losartan Potassium (Cozaar) 12.5 mg PO DAILY [facility] Last Admin: 06/01/18 09:45 Dose: Not Given Morphine Sulfate (Morphine) 2 mg IVP Q4 PRN PRN Reason: Pain, severe (8-10) Last Admin: 06/02/18 06:51 Dose: 2 mg Ondansetron HCl (Zofran Inj) 4 mg IVP Q4H PRN PRN Reason: Nausea/Vomiting Last Admin: 05/31/18 12:44 Dose: 4 mg - Labs Labs: 06/01/18 06:44 06/01/18 06:44 PT 16.3 SECONDS (9.7-12.2) H 05/31/18 08:15 INR 1.5 05/31/18 08:15 APTT 34 SECONDS (21-34) 05/31/18 08:15 - Constitutional Appears: Non-toxic, No Acute Distress - Head Exam Head Exam: ATRAUMATIC, NORMAL INSPECTION - Respiratory Exam Respiratory Exam: Clear to Ausculation Bilateral, NORMAL BREATHING PATTERN - Cardiovascular Exam Cardiovascular Exam: REGULAR RHYTHM, +S1, +S2 - GI/Abdominal Exam GI & Abdominal Exam: Soft, Tenderness, Normal Bowel Sounds - Extremities Exam Extremities Exam: Normal Inspection. absent: Pedal Edema - Neurological Exam Neurological Exam: Alert, Awake - Psychiatric Exam Psychiatric exam: Flat Affect, Normal Mood Assessment and Plan - Assessment and Plan (Free Text) Assessment: #Acute cholecystitis #Abnormal liver tests #CVA #DM #HTN PLAN: -CT, US and MRCP reviewed showing distended GB, thickened wall and evidence of cholecystitis but not choledocolithiasis. -Liver tests trending down -Surgery tomorrow. -Antibiotics per ID. Vanco can be discontinued. -Diet per surgery -monitor liver tests and CBC Case discussed with Dr. Valdez, see attestation. <Alexsandra Valdez - Last Filed: 06/02/18 11:35> Objective - Vital Signs/Intake and Output Vital Signs (last 24 hours): Temp Pulse Resp BP Pulse Ox 97.9 F 78 20 197/73 H 95 06/02/18 08:00 06/02/18 08:00 06/02/18 08:00 06/02/18 09:27 06/02/18 08:00 Intake and Output: 06/02/18 06/02/18 06:59 18:59 Intake Total 1250 700 Output Total 1 Balance 1250 699 - Medications Medications: Current Medications Dextrose (Dextrose 50% Inj) 0 ml IV STAT PRN; Protocol PRN Reason: Hypoglycemia Protocol Dextrose (Glutose 15) 0 gm PO ONCE PRN; Protocol PRN Reason: Hypoglycemia Protocol Enoxaparin Sodium (Lovenox) 30 mg SC DAILY [facility] Last Admin: 06/02/18 09:26 Dose: 30 mg Glucagon (Glucagen Diagnostic Kit) 0 mg IM STAT PRN; Protocol PRN Reason: Hypoglycemia Protocol Lactated Ringer's (Lactated Ringer's) 1,000 mls @ 100 mls/hr IV .Q10H [facility] Last Admin: 06/02/18 08:31 Dose: Not Given Dextrose (Dextrose 5% In Water 1000 Ml) 1,000 mls @ 0 mls/hr IV .Q0M PRN; Protocol PRN Reason: Hypoglycemia Protocol Vancomycin/Sodium Chloride (Vancomycin 1 Gm/Ns 200 Ml) 1 gm in 200 mls @ 133 mls/hr IVPB Q24H [facility]; Protocol Stop: 06/05/18 00:16 Meropenem 1 gm/ Sodium (Chloride) 100 mls @ 100 mls/hr IVPB Q12H [facility]; Protocol Insulin Human Regular (Novolin R) 0 unit SC ACHS [facility]; Protocol Last Admin: 06/02/18 08:33 Dose: Not Given Losartan Potassium (Cozaar) 12.5 mg PO DAILY [facility] Last Admin: 06/02/18 09:26 Dose: 12.5 mg Morphine Sulfate (Morphine) 2 mg IVP Q4 PRN PRN Reason: Pain, severe (8-10) Last Admin: 06/02/18 06:51 Dose: 2 mg Ondansetron HCl (Zofran Inj) 4 mg IVP Q4H PRN PRN Reason: Nausea/Vomiting Last Admin: 05/31/18 12:44 Dose: 4 mg - Labs Labs: 06/01/18 06:44 06/01/18 06:44 PT 16.3 SECONDS (9.7-12.2) H 05/31/18 08:15 INR 1.5 05/31/18 08:15 APTT 34 SECONDS (21-34) 05/31/18 08:15 Attending/Attestation - Attestation I have personally seen and examined this patient.: Yes I have fully participated in the care of the patient.: Yes I have reviewed all pertinent clinical information, including history, physical exam and plan: Yes Notes (Text): 06/02/18 11:34 I have seen and examined the patient with the GI fellow. She is feeling well. Denies abdominal pain. MRCP read with normal CBD, distended GB suspicious for cholecystitis. Planned for lap cholecystectomy tmrw as per surgery. Will sign off, pls call with questions. 06/02/18 11:34
[2018-06-02] MEDS: Losartan 12.5 MG TAB PO SCH (09:26)
[2018-06-02] MEDS: Enoxaparin 30 mg Syringe SC SCH (09:26)
--- NOTE | 2018-06-02 10:55 | CP.PCM.PN ---
Subjective - Date & Time of Evaluation Date of Evaluation: 06/02/18 Time of Evaluation: 10:05 - Subjective Subjective: PGY-[address] Post's ervice Patient seen and examined at bedside. Nursing reports no acute events overnight but BP elevated this AM. Patient found resting comfortably in bed with daughter at bedside. Patient states her pain has improved greatly since admission. Last BM was last night per patient, and was without blood. Denies chest pain, SOB, Nausea, or vomiting. Objective - Vital Signs/Intake and Output Vital Signs (last 24 hours): Temp Pulse Resp BP Pulse Ox 96.1 F L 84 20 197/73 H 95 06/02/18 06:45 06/02/18 06:45 06/02/18 06:45 06/02/18 09:27 06/02/18 06:45 Intake and Output: 06/02/18 06/02/18 06:59 18:59 Intake Total 1250 700 Output Total 1 Balance 1250 699 - Medications Medications: Current Medications Dextrose (Dextrose 50% Inj) 0 ml IV STAT PRN; Protocol PRN Reason: Hypoglycemia Protocol Dextrose (Glutose 15) 0 gm PO ONCE PRN; Protocol PRN Reason: Hypoglycemia Protocol Enoxaparin Sodium (Lovenox) 30 mg SC DAILY [facility] Last Admin: 06/02/18 09:26 Dose: 30 mg Glucagon (Glucagen Diagnostic Kit) 0 mg IM STAT PRN; Protocol PRN Reason: Hypoglycemia Protocol Lactated Ringer's (Lactated Ringer's) 1,000 mls @ 100 mls/hr IV .Q10H [facility] Last Admin: 06/02/18 08:31 Dose: Not Given Dextrose (Dextrose 5% In Water 1000 Ml) 1,000 mls @ 0 mls/hr IV .Q0M PRN; Protocol PRN Reason: Hypoglycemia Protocol Vancomycin/Sodium Chloride (Vancomycin 1 Gm/Ns 200 Ml) 1 gm in 200 mls @ 133 mls/hr IVPB Q24H [facility]; Protocol Stop: 06/05/18 00:16 Meropenem 1 gm/ Sodium (Chloride) 100 mls @ 100 mls/hr IVPB Q12H [facility]; Protocol Insulin Human Regular (Novolin R) 0 unit SC ACHS [facility]; Protocol Last Admin: 06/02/18 08:33 Dose: Not Given Losartan Potassium (Cozaar) 12.5 mg PO DAILY [facility] Last Admin: 06/02/18 09:26 Dose: 12.5 mg Morphine Sulfate (Morphine) 2 mg IVP Q4 PRN PRN Reason: Pain, severe (8-10) Last Admin: 06/02/18 06:51 Dose: 2 mg Ondansetron HCl (Zofran Inj) 4 mg IVP Q4H PRN PRN Reason: Nausea/Vomiting Last Admin: 05/31/18 12:44 Dose: 4 mg - Labs Labs: 06/01/18 06:44 06/01/18 06:44 PT 16.3 SECONDS (9.7-12.2) H 05/31/18 08:15 INR 1.5 05/31/18 08:15 APTT 34 SECONDS (21-34) 05/31/18 08:15 - Additional Findings Additional findings: - Constitutional Appears: Well, Non-toxic, No Acute Distress, Chronically Ill - Head Exam Head Exam: ATRAUMATIC, NORMOCEPHALIC - Eye Exam Eye Exam: EOMI - ENT Exam ENT Exam: Mucous Membranes Moist - Respiratory Exam Respiratory Exam: NORMAL BREATHING PATTERN. absent: Accessory Muscle Use, Respiratory Distress - Cardiovascular Exam Cardiovascular Exam: REGULAR RHYTHM - GI/Abdominal Exam GI & Abdominal Exam: Soft, TTP @ RUQ. absent: Rebound - Extremities Exam Extremities Exam: absent: Calf Tenderness, Pedal Edema - Neurological Exam Neurological Exam: Alert, Awake, Oriented x3 - Psychiatric Exam Psychiatric exam: Normal Affect, Normal Mood - Skin Skin Exam: Dry, Intact, Normal Color, Warm Assessment and Plan - Assessment and Plan (Free Text) Plan: Cholecystitis Admit to med/surg Met sepsis criteria at admission LFTs downtrending (AST 234 -> 204 -> 64; ALT 164 -> 85 -> 44) CXR (05/30/18): IMPRESSION: Elevation of the right hemidiaphragm. The right lung appears smaller than the left. Mild constipation. Ct A/P (05/30/18): Findings suspicious for acute cholecystitis. If indicated further assessment by ultrasound may be obtained. Mild constipation. US (05/30/18): Distended GB w/ sludge, possible small gallstones. CBD 4.5 mm. Acute kleber should be considered. MRCP (06/01/18): No filling defects w/in CBD. Distended GB. Fatty atrophy of pancreas. Blood Cx (05/30/18): No GTD x 2 Urine Cx (05/30/18): No growth ID senior market intelligence consultant, Dr. Alanis Merrem 1gm Q12H [facility] (start 05/30/18, Day 4) - D/C Vancomycin 1gm IV Q12H (Start 05/31; Received 3 days) GI senior market intelligence consultant, Dr. Gomez - Pt for lap kleber - signed off banking consultant, Dr. Dorsey - plan for kleber 06/03/18 Cardio Paste Mixer, Dr. Mendieta - Acceptable risk for urgent cholecystectomy - f/u ECHO filling pressures Morphine 2mg IV Q4H PRN severe pain Zofran 4mg IVP PRN N/V DORIS Cr 2.1 on AM labs; previous baseline 1.6 Likely due to ATN from sepsis vs prerenal from volume loss per Dr Post Hold Losartan Pleural effusion CXR (06/02/18): Moderate right pleural effusion, trace left pleural effusion. Interval right basal compressive atelectasis. Cardiomegaly. Increased pulm venous congestion - Lasix 40mg IV once Diabetes Last A1c: 12.7 (2016) f/u repeat A1C ISS HTN (poorly controlled) Hold Losartan Start Amlodipine 10mg Start Coreg 6.25mg PO BID PPX Hold VTE (Lovenox 30mg) pre-op GI: not indicated at this time Humphrey Larson PGY3 d/w Dr. Post
--- NOTE | 2018-06-02 11:53 | CP.PCM.PN ---
Subjective - Date & Time of Evaluation Date of Evaluation: 06/02/18 Time of Evaluation: 08:00 - Subjective Subjective: no fever less pain Objective - Vital Signs/Intake and Output Vital Signs (last 24 hours): Temp Pulse Resp BP Pulse Ox 97.9 F 78 20 197/73 H 95 06/02/18 08:00 06/02/18 08:00 06/02/18 08:00 06/02/18 09:27 06/02/18 08:00 Intake and Output: 06/02/18 06/02/18 06:59 18:59 Intake Total 1250 700 Output Total 1 Balance 1250 699 - Medications Medications: Current Medications Dextrose (Dextrose 50% Inj) 0 ml IV STAT PRN; Protocol PRN Reason: Hypoglycemia Protocol Dextrose (Glutose 15) 0 gm PO ONCE PRN; Protocol PRN Reason: Hypoglycemia Protocol Enoxaparin Sodium (Lovenox) 30 mg SC DAILY [facility] Last Admin: 06/02/18 09:26 Dose: 30 mg Glucagon (Glucagen Diagnostic Kit) 0 mg IM STAT PRN; Protocol PRN Reason: Hypoglycemia Protocol Lactated Ringer's (Lactated Ringer's) 1,000 mls @ 100 mls/hr IV .Q10H [facility] Last Admin: 06/02/18 08:31 Dose: Not Given Dextrose (Dextrose 5% In Water 1000 Ml) 1,000 mls @ 0 mls/hr IV .Q0M PRN; Protocol PRN Reason: Hypoglycemia Protocol Vancomycin/Sodium Chloride (Vancomycin 1 Gm/Ns 200 Ml) 1 gm in 200 mls @ 133 mls/hr IVPB Q24H [facility]; Protocol Stop: 06/05/18 00:16 Meropenem 1 gm/ Sodium (Chloride) 100 mls @ 100 mls/hr IVPB Q12H [facility]; Protocol Insulin Human Regular (Novolin R) 0 unit SC ACHS [facility]; Protocol Last Admin: 06/02/18 08:33 Dose: Not Given Losartan Potassium (Cozaar) 12.5 mg PO DAILY [facility] Last Admin: 06/02/18 09:26 Dose: 12.5 mg Morphine Sulfate (Morphine) 2 mg IVP Q4 PRN PRN Reason: Pain, severe (8-10) Last Admin: 06/02/18 06:51 Dose: 2 mg Ondansetron HCl (Zofran Inj) 4 mg IVP Q4H PRN PRN Reason: Nausea/Vomiting Last Admin: 05/31/18 12:44 Dose: 4 mg - Labs Labs: 06/01/18 06:44 06/01/18 06:44 PT 16.3 SECONDS (9.7-12.2) H 05/31/18 08:15 INR 1.5 05/31/18 08:15 APTT 34 SECONDS (21-34) 05/31/18 08:15 - Constitutional Appears: Non-toxic, Chronically Ill - Head Exam Head Exam: NORMOCEPHALIC - Eye Exam Eye Exam: absent: Scleral icterus - ENT Exam ENT Exam: Mucous Membranes Dry - Neck Exam Neck Exam: absent: Lymphadenopathy - Respiratory Exam Respiratory Exam: Decreased Breath Sounds - Cardiovascular Exam Cardiovascular Exam: REGULAR RHYTHM - GI/Abdominal Exam GI & Abdominal Exam: Distended, Soft - Rectal Exam Rectal Exam: Deferred - Exam Exam: NORMAL INSPECTION - Extremities Exam Extremities Exam: absent: Pedal Edema - Back Exam Back Exam: absent: CVA tenderness (L), CVA tenderness (R) - Neurological Exam Neurological Exam: Alert, Awake, CN II-XII Intact, Oriented x3 - Psychiatric Exam Psychiatric exam: Normal Mood - Skin Skin Exam: Dry Assessment and Plan (1) Abdominal pain Status: Acute (2) Cholecystitis Status: Acute (3) CVA, old, dysarthria Status: Acute (4) Cholangitis Status: Acute (5) Diabetes mellitus Status: Chronic (6) Hyperlipidemia Status: Chronic (7) Hypertension Status: Chronic - Assessment and Plan (Free Text) Assessment: for nile [place] ok to d/c farzad
--- NOTE | 2018-06-02 12:13 | CP.PCM.CON ---
History of Present Illness - History of Present Illness History of Present Illness: CC: Preop Clearence HPI: 67 year old female with following chronic medical conditions 1. 2. 3. 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) Other/Comment: h/o CVA 2003 - HEENT Hx HEENT Problems: Yes Other/Comment: RT EYE PROSTHESIS - ENDOCRINE/METABOLIC Hx Endocrine Disorders: Yes Hx Diabetes Mellitus Type 2: Yes - HEMATOLOGICAL/ONCOLOGICAL Hx Human Immunodeficiency Virus (HIV): No - MUSCULOSKELETAL/RHEUMATOLOGICAL Hx Falls: No - GASTROINTESTINAL Hx Constipation: Yes - PSYCHIATRIC Hx Substance Use: No - SURGICAL HISTORY Hx Appendectomy: Yes - ANESTHESIA Hx Anesthesia: Yes Hx Anesthesia Reactions: No Hx Malignant Hyperthermia: No Meds Allergies/Adverse Reactions: Allergies Allergy/AdvReac Type Severity Reaction Status Date / Time No Known Allergies Allergy Verified 05/30/18 11:27 - Medications Medications: Current Medications Dextrose (Dextrose 50% Inj) 0 ml IV STAT PRN; Protocol PRN Reason: Hypoglycemia Protocol Dextrose (Glutose 15) 0 gm PO ONCE PRN; Protocol PRN Reason: Hypoglycemia Protocol Enoxaparin Sodium (Lovenox) 30 mg SC DAILY [facility] Last Admin: 06/02/18 09:26 Dose: 30 mg Glucagon (Glucagen Diagnostic Kit) 0 mg IM STAT PRN; Protocol PRN Reason: Hypoglycemia Protocol Lactated Ringer's (Lactated Ringer's) 1,000 mls @ 100 mls/hr IV .Q10H [facility] Last Admin: 06/02/18 08:31 Dose: Not Given Dextrose (Dextrose 5% In Water 1000 Ml) 1,000 mls @ 0 mls/hr IV .Q0M PRN; Protocol PRN Reason: Hypoglycemia Protocol Meropenem 1 gm/ Sodium (Chloride) 100 mls @ 100 mls/hr IVPB Q12H [facility]; Protocol Insulin Human Regular (Novolin R) 0 unit SC ACHS [facility]; Protocol Last Admin: 06/02/18 12:09 Dose: 4 units Losartan Potassium (Cozaar) 12.5 mg PO DAILY [facility] Last Admin: 06/02/18 09:26 Dose: 12.5 mg Morphine Sulfate (Morphine) 2 mg IVP Q4 PRN PRN Reason: Pain, severe (8-10) Last Admin: 06/02/18 06:51 Dose: 2 mg Ondansetron HCl (Zofran Inj) 4 mg IVP Q4H PRN PRN Reason: Nausea/Vomiting Last Admin: 05/31/18 12:44 Dose: 4 mg Results - Vital Signs Recent Vital Signs: Last Vital Signs Temp 97.9 F 06/02/18 08:00 Pulse 91 H 06/02/18 11:55 Resp 20 06/02/18 08:00 BP 175/72 H 06/02/18 11:55 Pulse Ox 95 06/02/18 08:00 - Labs Result Diagrams: 06/03/18 06:31 06/03/18 06:31 Labs: Laboratory Results - last 24 hr 06/01/18 06/01/18 06/01/18 15:59 17:15 19:40 Puncture Site Rba pCO2 36 pO2 71 L HCO3 23.7 ABG pH 7.41 ABG Total CO2 23.9 ABG O2 Saturation 97.0 ABG Base Excess -1.5 ABG Hemoglobin 10.3 L ABG Carboxyhemoglobin 2.0 H POC ABG HHb (Measured) 2.9 ABG Methemoglobin 0.8 Compa Test Pos A-a O2 Difference 112.0 Respiratory Index 1.6 Hgb O2 Saturation 94.3 L Liter Flow 3.0 FiO2 32.0 POC Glucose (mg/dL) 174 H Random Vancomycin C. difficile Ag & Toxin Negative 06/01/18 06/02/18 06/02/18 21:36 07:03 07:23 Puncture Site pCO2 pO2 HCO3 ABG pH ABG Total CO2 ABG O2 Saturation ABG Base Excess ABG Hemoglobin ABG Carboxyhemoglobin POC ABG HHb (Measured) ABG Methemoglobin Compa Test A-a O2 Difference Respiratory Index Hgb O2 Saturation Liter Flow FiO2 POC Glucose (mg/dL) 183 H 186 H Random Vancomycin 16.1 C. difficile Ag & Toxin 06/02/18 11:15 Puncture Site pCO2 pO2 HCO3 ABG pH ABG Total CO2 ABG O2 Saturation ABG Base Excess ABG Hemoglobin ABG Carboxyhemoglobin POC ABG HHb (Measured) ABG Methemoglobin Compa Test A-a O2 Difference Respiratory Index Hgb O2 Saturation Liter Flow FiO2 POC Glucose (mg/dL) 209 H Random Vancomycin C. difficile Ag & Toxin - EKG Data EKG Interpreted by: Myself EKG shows normal: Sinus rhythm Rate: Normal - Imaging and Cardiology Chest x-ray Status: Image reviewed by me Additional comment: Right pleural effusion Assessment & Plan - Assessment and Plan (Free Text) Assessment: 67 year old female with severe sepsis due to acute cholecystitis possible cholangitis on IV abx, SHE IS ACCEPTABLE RISK FOR URGENT CHOLECYSTECTOMY Pleural effusion could due to inflammation for GB, measure filling pressures on 2D echo ARF likely due to ATN from sepsis syndrome or prerenal from insensible volume loss, renal following. HTN is chronic and stable on losartan DM on insulin - Date & Time Date: 06/02/18 Time: 12:22
[2018-06-02 12:20] LABS: ALBUMIN 3.2 g/dL (3.5-5.0); CALCIUM 8.8 mg/dl (8.6-10.4)
--- NOTE | 2018-06-02 18:59 | CP.PCM.PN ---
Subjective - Date & Time of Evaluation Date of Evaluation: 06/02/18 Time of Evaluation: 08:10 - Subjective Subjective: Patient seen and examined today nausea present abd pain stil present but better No vomiting No fever No diarrhea No dizziness No shortness of breath Objective - Vital Signs/Intake and Output Vital Signs (last 24 hours): Temp Pulse Resp BP Pulse Ox 98.8 F 85 20 189/82 H 94 L 06/02/18 15:12 06/02/18 15:12 06/02/18 15:12 06/02/18 15:12 06/02/18 15:12 Intake and Output: 06/02/18 06/02/18 06:59 18:59 Intake Total 1250 700 Output Total 1 Balance 1250 699 - Medications Medications: Current Medications Amlodipine Besylate (Norvasc) 10 mg PO DAILY [facility] Carvedilol (Coreg) 6.25 mg PO BID [facility] Dextrose (Dextrose 50% Inj) 0 ml IV STAT PRN; Protocol PRN Reason: Hypoglycemia Protocol Dextrose (Glutose 15) 0 gm PO ONCE PRN; Protocol PRN Reason: Hypoglycemia Protocol Enoxaparin Sodium (Lovenox) 30 mg SC DAILY [facility] Last Admin: 06/02/18 09:26 Dose: 30 mg Glucagon (Glucagen Diagnostic Kit) 0 mg IM STAT PRN; Protocol PRN Reason: Hypoglycemia Protocol Lactated Ringer's (Lactated Ringer's) 1,000 mls @ 100 mls/hr IV .Q10H [facility] Last Admin: 06/02/18 08:31 Dose: Not Given Dextrose (Dextrose 5% In Water 1000 Ml) 1,000 mls @ 0 mls/hr IV .Q0M PRN; Protocol PRN Reason: Hypoglycemia Protocol Meropenem 1 gm/ Sodium (Chloride) 100 mls @ 100 mls/hr IVPB Q12H [facility]; Protocol Last Admin: 06/02/18 14:31 Dose: 100 mls/hr Insulin Human Regular (Novolin R) 0 unit SC ACHS [facility]; Protocol Last Admin: 06/02/18 12:09 Dose: 4 units Losartan Potassium (Cozaar) 12.5 mg PO DAILY [facility] Last Admin: 06/02/18 09:26 Dose: 12.5 mg Morphine Sulfate (Morphine) 2 mg IVP Q4 PRN PRN Reason: Pain, severe (8-10) Last Admin: 06/02/18 14:39 Dose: 2 mg Ondansetron HCl (Zofran Inj) 4 mg IVP Q4H PRN PRN Reason: Nausea/Vomiting Last Admin: 05/31/18 12:44 Dose: 4 mg - Labs Labs: 06/01/18 06:44 06/02/18 11:49 PT 16.3 SECONDS (9.7-12.2) H 05/31/18 08:15 INR 1.5 05/31/18 08:15 APTT 34 SECONDS (21-34) 05/31/18 08:15 - Constitutional Appears: Well - Head Exam Head Exam: ATRAUMATIC, NORMAL INSPECTION, NORMOCEPHALIC - Eye Exam Eye Exam: EOMI, Normal appearance, PERRL Pupil Exam: NORMAL ACCOMODATION, PERRL - ENT Exam ENT Exam: Mucous Membranes Moist, Normal Exam - Neck Exam Neck Exam: Full ROM, Normal Inspection. absent: Lymphadenopathy - Respiratory Exam Respiratory Exam: Decreased Breath Sounds - Cardiovascular Exam Cardiovascular Exam: REGULAR RHYTHM, +S1, +S2 - GI/Abdominal Exam GI & Abdominal Exam: Soft, Diminished Bowel Sounds - Rectal Exam Rectal Exam: Deferred - Neurological Exam Neurological Exam: Oriented x3 Assessment and Plan (1) Abdominal pain Status: Acute (2) Cholecystitis Status: Acute (3) Nausea Status: Acute (4) CVA, old, dysarthria Status: Acute (5) Contusion Status: Acute (6) Hyperglycemia Status: Acute (7) Ischemic stroke Status: Acute (8) Slurring of speech Status: Acute (9) Toothache Status: Acute (10) UTI (urinary tract infection) Status: Acute (11) Diabetes mellitus Status: Chronic (12) Hyperlipidemia Status: Chronic (13) Hypertension Status: Chronic - Assessment and Plan (Free Text) Plan: medications reviewed coreg cozaar dextrose 5% in water dextrose 50% inj glucagen diagnostic kit glutose 15 lactated ringers lovenox meropenem morphine norvasc novolin R zofran inj labs and vitals reviewed Patient still have a pain in the right upper quadrant patient claims it has improved For laparoscopic Cholecystectomy Family bedside Cardiology for a cardiac clearance Cardiology on the floor discussed with Dr. Mendieta WBC still high 19.8 which was 30,000 The potassium is 3.8 BUN/creatinine is 36 and 2.1 respectively
[2018-06-02] MEDS ORDERED: Vancomycin 1 gm/NS 200 ml 1 GM/200 ML BAG IVPB SCH (23:00)
--- NOTE | 2018-06-02 23:12 | CARD ---
APPROVED REPORT Date of service: 06/02/2018 EXAM: Two-dimensional and M-mode echocardiogram with Doppler and color Doppler. INDICATION PREOP CLEARENCE RISK FACTORS Hypertension Hyperlipidemia Diabetes 2D DIMENSIONS IVSd1.2 (0.7-1.1cm)LVDd3.7 (3.9-5.9cm) PWd1.0 (0.7-1.1cm)LA Nbdcsu80 (18-58mL) LVDs2.5 (2.5-4.0cm)FS (%) 30.9 % LVEF (%)59.5 (>50%)LVEF (Ro's)59.61 % M-Mode DIMENSIONS Left Atrium (MM)2.38 (2.5-4.0cm)IVSd0.97 (0.7-1.1cm) Aortic Root3.04 (2.2-3.7cm)LVDd4.31 (4.0-5.6cm) Aortic Cusp Exc.1.83 (1.5-2.0cm)PWd0.65 (0.7-1.1cm) FS (%) 37 %LVDs2.73 (2.0-3.8cm) LVEF (%)67 (>50%) Mitral Valve MV E Jsmkuhzp93.5cm/sMV A Zfcnfmcj694.4cm/sE/A ratio0.5 TDI Lateral E' Peak V2.67cm/sMedial E' Peak V4.61cm/sE/Lateral E'20.4 E/Medial E'11.8 Tricuspid Valve TR Peak Lkqtbdkv603ru/sTR Peak Gr.[id number] LEFT VENTRICLE The left ventricle is normal size. There is borderline to mild concentric left ventricular hypertrophy. The left ventricular function is normal. The left ventricular ejection fraction is within the normal range. There is normal LV segmental wall motion. Transmitral Doppler flow pattern is abnormal. RIGHT VENTRICLE The right ventricle is normal size. ATRIA The left atrium size is normal. The right atrium size is normal. AORTIC VALVE The aortic valve is normal in structure. MITRAL VALVE Mitral regurgitation is trace. TRICUSPID VALVE There is severe tricuspid regurgitation. <Conclusion> Normal LV systolic function. Diastolic dysfunction. Trace MR. Seveer TR. Normal chamber size.
[2018-06-03] MEDS: Meropenem 1 GM in Sodium Chloride 0.9% 100 ML IVPB SCH ×2 (01:38→13:39)
[2018-06-03 06:56] LABS: ALB/GLOB RATIO 0.9 (1.0-2.1); CALCIUM 8.6 mg/dl (8.6-10.4)
[2018-06-03 07:09] LABS: BASO # 0.1 K/uL (0.0-0.2); BASO % 0.4 % (0.0-2.0); EOS # 0.5 K/uL (0.0-0.7); EOS % 2.7 % (0.0-4.0); HEMOGLOBIN 10.4 g/dL (11.0-16.0); LYMPH # 1.2 K/uL (1.0-4.3); LYMPH % 6.8 % (20.0-40.0); MEAN CELL VOLUME 80.1 fL (81.0-99.0); MEAN CORPUSCULAR HEMOGLOBIN 26.3 pg (27.0-31.0); MEAN CORPUSCULAR HGB CONC 32.8 g/dL (33.0-37.0); MEAN PLATELET VOLUME 9.3 fL (7.2-11.7); MONO % 5.7 % (0.0-10.0); NEUT # 14.4 K/uL (1.8-7.0); NEUT % 84.4 % (50.0-75.0); PLATELET COUNT 410 K/uL (130-400); RBC 3.95 Mil/uL (3.80-5.20); RED CELL DISTRIBUTION WIDTH 15.5 % (11.5-14.5)
[2018-06-03 07:17] LABS: INR 1.2; PROTHROMBIN TIME 13.5 SECONDS (9.7-12.2)
[2018-06-03] MEDS: (Novolin R) Insulin Human Regular 100 units/ml vial SC SCH ×4 (07:56→21:49)
[2018-06-03 08:23] LABS: ANISOCYTOSIS SLIGHT; BANDS 2 % (0-2); BASOPHIL 1 % (0-2); EOSINOPHIL 1 % (0-4); HYPOCHROMIC SLIGHT; LYMPHOCYTE 6 % (20-40); MONOCYTE 3 % (0-10); NEUTROPHIL 86 % (50-75); PLATELET ESTIMATE NORMAL (NORMAL); POIKILOCYTOSIS SLIGHT; REACTIVE LYMPHOCYTES 1 % (0-0); TOTAL CELLS COUNTED 100
[2018-06-03 08:24] LABS: LARGE PLATELETS PRESENT
[2018-06-03] MEDS ORDERED: ceFAZolin 1 gm in NS 0 GM/0 ML BAG IVPB ONE (09:02)
[2018-06-03] MEDS ORDERED: Sodium Chloride 0.9% 0 ML IV ONE (09:02)
[2018-06-03] MEDS ORDERED: Bupivacaine 0.25% 20 ML INJ IJ ONE (09:02)
[2018-06-03] MEDS ORDERED: Lidocaine/Epinephrine 1% 1:100000 10 ML IJ ONE (09:02)
[2018-06-03] MEDS ORDERED: Bupivacaine Liposomal Inj 20 ml INFIL ONE (09:15)
--- NOTE | 2018-06-03 11:55 | CP.PCM.PN ---
Subjective - Date & Time of Evaluation Date of Evaluation: 06/03/18 Time of Evaluation: 11:51 - Subjective Subjective: PGY3 progress note for Dr. Deepak Post Pt seen and examined at bedside. Daughter at bedside who helps translate and helps with history. Patient is sleeping comfortably but arousable and able ot answer questions. Patient currently denies having any chest pain or shortness of breath. Per daughter, patient's abdomen is more distended than usual. Patient was scheduled for cholecystectomy this am but procedure was cancelled per surgeon. Patient is still NPO. Objective - Vital Signs/Intake and Output Vital Signs (last 24 hours): Temp Pulse Resp BP Pulse Ox 97.9 F 80 20 140/70 95 06/03/18 08:17 06/03/18 08:17 06/03/18 08:17 06/03/18 08:17 06/03/18 08:17 Intake and Output: 06/03/18 06/03/18 06:59 18:59 Intake Total 340 Balance 340 - Medications Medications: Current Medications Amlodipine Besylate (Norvasc) 10 mg PO DAILY [facility] Last Admin: 06/03/18 10:53 Dose: Not Given Carvedilol (Coreg) 6.25 mg PO BID [facility] Last Admin: 06/02/18 18:00 Dose: 6.25 mg Dextrose (Dextrose 50% Inj) 0 ml IV STAT PRN; Protocol PRN Reason: Hypoglycemia Protocol Dextrose (Glutose 15) 0 gm PO ONCE PRN; Protocol PRN Reason: Hypoglycemia Protocol Enoxaparin Sodium (Lovenox) 30 mg SC DAILY [facility] Last Admin: 06/02/18 09:26 Dose: 30 mg Glucagon (Glucagen Diagnostic Kit) 0 mg IM STAT PRN; Protocol PRN Reason: Hypoglycemia Protocol Lactated Ringer's (Lactated Ringer's) 1,000 mls @ 100 mls/hr IV .Q10H [facility] Last Admin: 06/02/18 08:31 Dose: Not Given Meropenem 1 gm/ Sodium (Chloride) 100 mls @ 100 mls/hr IVPB Q12H [facility]; Protocol Last Admin: 06/03/18 01:38 Dose: 100 mls/hr Insulin Human Regular (Novolin R) 0 unit SC ACHS [facility]; Protocol Last Admin: 06/03/18 07:56 Dose: Not Given Losartan Potassium (Cozaar) 12.5 mg PO DAILY [facility] Last Admin: 06/02/18 09:26 Dose: 12.5 mg Morphine Sulfate (Morphine) 2 mg IVP Q4 PRN PRN Reason: Pain, severe (8-10) Last Admin: 06/02/18 14:39 Dose: 2 mg Ondansetron HCl (Zofran Inj) 4 mg IVP Q4H PRN PRN Reason: Nausea/Vomiting Last Admin: 05/31/18 12:44 Dose: 4 mg - Labs Labs: 06/03/18 06:31 06/03/18 06:31 PT 13.5 SECONDS (9.7-12.2) H 06/03/18 06:31 INR 1.2 06/03/18 06:31 APTT 34 SECONDS (21-34) 06/03/18 06:31 - Constitutional Appears: Non-toxic, No Acute Distress - Head Exam Head Exam: ATRAUMATIC, NORMOCEPHALIC - ENT Exam ENT Exam: Mucous Membranes Moist - Respiratory Exam Respiratory Exam: Rales (mild ). absent: Accessory Muscle Use, Rhonchi, Wheezes, Respiratory Distress - Cardiovascular Exam Cardiovascular Exam: REGULAR RHYTHM, +S1, +S2 - GI/Abdominal Exam GI & Abdominal Exam: Soft, Normal Bowel Sounds. absent: Distended, Firm, Guarding, Rigid, Tenderness - Extremities Exam Extremities Exam: absent: Pedal Edema, Tenderness - Neurological Exam Neurological Exam: Awake. absent: Oriented x3 - Skin Skin Exam: Dry, Intact, Normal Color, Warm Assessment and Plan - Assessment and Plan (Free Text) Assessment: Cholecystitis Met sepsis criteria at admission LFTs downtrending CXR (05/30/18): IMPRESSION: Elevation of the right hemidiaphragm. The right lung appears smaller than the left. Mild constipation. Ct A/P (05/30/18): Findings suspicious for acute cholecystitis. If indicated further assessment by ultrasound may be obtained. Mild constipation. US (05/30/18): Distended GB w/ sludge, possible small gallstones. CBD 4.5 mm. Acute kleber should be considered. MRCP (06/01/18): No filling defects w/in CBD. Distended GB. Fatty atrophy of pancreas. Blood Cx (05/30/18): No GTD x 2 Urine Cx (05/30/18): No growth ID mortgage consultant, Dr. Alanis Merrem 1gm Q12H [facility] (start 05/30/18, Day 5) - D/C Vancomycin 1gm IV Q12H (Start 05/31; Received 3 days) GI mortgage consultant, Dr. Gomez - Pt for lap kleber - signed off sales enablement consultant, Dr. Dorsey - Awaiting recs. Cardio Keyliner, Dr. Mendieta - Acceptable risk for urgent cholecystectomy - f/u ECHO filling pressures Morphine 2mg IV Q4H PRN severe pain Zofran 4mg IVP PRN N/V DORIS Cr 2.5 on AM labs; previous baseline 1.6 Likely due to ATN from sepsis vs prerenal from volume loss per Dr Post Hold Losartan Pleural effusion will repeat CXR today and ABG as patient has low saturation CXR (06/02/18): Moderate right pleural effusion, trace left pleural effusion. Interval right basal compressive atelectasis. Cardiomegaly. Increased pulm venous congestion Diabetes HgbA1c is 8.6 ISS HTN (poorly controlled) Hold Losartan Start Amlodipine 10mg Start Coreg 6.25mg PO BID PPX Will consider restarting VTE prophylaxis if no plan for procedure GI: not indicated at this time
--- NOTE | 2018-06-03 12:03 | CP.PCM.PN ---
Subjective - Date & Time of Evaluation Date of Evaluation: 06/03/18 Time of Evaluation: 12:00 - Subjective Subjective: Events reviewed. Surgery is canceled. Objective - Vital Signs/Intake and Output Vital Signs (last 24 hours): Temp Pulse Resp BP Pulse Ox 97.9 F 80 20 140/70 95 06/03/18 08:17 06/03/18 08:17 06/03/18 08:17 06/03/18 08:17 06/03/18 08:17 Intake and Output: 06/03/18 06/03/18 06:59 18:59 Intake Total 340 Balance 340 - Medications Medications: Current Medications Amlodipine Besylate (Norvasc) 10 mg PO DAILY [facility] Last Admin: 06/03/18 10:53 Dose: Not Given Carvedilol (Coreg) 6.25 mg PO BID [facility] Last Admin: 06/03/18 11:52 Dose: Not Given Dextrose (Dextrose 50% Inj) 0 ml IV STAT PRN; Protocol PRN Reason: Hypoglycemia Protocol Dextrose (Glutose 15) 0 gm PO ONCE PRN; Protocol PRN Reason: Hypoglycemia Protocol Enoxaparin Sodium (Lovenox) 30 mg SC DAILY [facility] Last Admin: 06/02/18 09:26 Dose: 30 mg Glucagon (Glucagen Diagnostic Kit) 0 mg IM STAT PRN; Protocol PRN Reason: Hypoglycemia Protocol Lactated Ringer's (Lactated Ringer's) 1,000 mls @ 100 mls/hr IV .Q10H [facility] Last Admin: 06/02/18 08:31 Dose: Not Given Meropenem 1 gm/ Sodium (Chloride) 100 mls @ 100 mls/hr IVPB Q12H [facility]; Protocol Last Admin: 06/03/18 01:38 Dose: 100 mls/hr Insulin Human Regular (Novolin R) 0 unit SC ACHS [facility]; Protocol Last Admin: 06/03/18 11:52 Dose: Not Given Losartan Potassium (Cozaar) 12.5 mg PO DAILY [facility] Last Admin: 06/02/18 09:26 Dose: 12.5 mg Morphine Sulfate (Morphine) 2 mg IVP Q4 PRN PRN Reason: Pain, severe (8-10) Last Admin: 06/02/18 14:39 Dose: 2 mg Ondansetron HCl (Zofran Inj) 4 mg IVP Q4H PRN PRN Reason: Nausea/Vomiting Last Admin: 05/31/18 12:44 Dose: 4 mg - Labs Labs: 06/03/18 06:31 06/03/18 06:31 PT 13.5 SECONDS (9.7-12.2) H 06/03/18 06:31 INR 1.2 06/03/18 06:31 APTT 34 SECONDS (21-34) 06/03/18 06:31 - Constitutional Appears: Well, Non-toxic - Eye Exam Eye Exam: absent: Scleral icterus Additional comments: left eye extraocular muscle palsey - ENT Exam ENT Exam: Mucous Membranes Dry, Normal External Ear Exam - Neck Exam Neck Exam: Full ROM. absent: Lymphadenopathy, Thyromegaly - Respiratory Exam Respiratory Exam: Decreased Breath Sounds (Reduced in right base), NORMAL BREATHING PATTERN - Cardiovascular Exam Cardiovascular Exam: Tachycardia, REGULAR RHYTHM, RRR, +S1, +S2. absent: JVD Additional comments: GRAYSON - GI/Abdominal Exam GI & Abdominal Exam: Normal Bowel Sounds. absent: Organomegaly - Neurological Exam Neurological Exam: Altered. absent: Motor Sensory Deficit - Psychiatric Exam Psychiatric exam: Normal Affect, Normal Mood Assessment and Plan - Assessment and Plan (Free Text) Assessment: 67 year old female with acute cholecystitis as per family surgery is canceled, IV abx, cholecystostomy insertion Pulmonary HTN severe on 2D echo in the setting of pleural effusion this could be due to pulmonary disease HTN is chronic and stable off coreg and amlodipine, continue cozaar Diabetes chronic continue insulin sliding scale Cerebrovascular disease chornic not on statin, will add as outpatient when GI pathology is improved
[2018-06-03 12:56] LABS: ABG ALLEN TEST POS; ARTERIAL BLOOD GAS HCO3 24.3 mmol/L (21-28); ARTERIAL BLOOD GAS O2 SAT 99.1 % (95-98); ARTERIAL BLOOD GAS PCO2 30 mm/Hg (35-45); ARTERIAL BLOOD GAS PH 7.47 (7.35-7.45); ARTERIAL BLOOD GAS PO2 154 mm/Hg (80-100); ARTERIAL BLOOD GAS TCO2 22.7 mmol/L (22-28)
--- NOTE | 2018-06-03 14:14 | RAD ---
Date of service: 06/03/2018 HISTORY: assess pleural effusion COMPARISON: 06/02/2018 TECHNIQUE: 1 view obtained. FINDINGS: LUNGS: Apparent elevation of right hemidiaphragm. This may be due to sub pulmonic pleural effusion or sarah elevated diaphragm. There is right basilar atelectasis. There is no sarah consolidation appreciated otherwise. PLEURA: Probable small right pleural effusion. No left pleural effusion. No pneumothorax. CARDIOVASCULAR: There is atherosclerotic calcification of the thoracic aorta. Normal cardiac size. No pulmonary vascular congestion. OSSEOUS STRUCTURES: No significant abnormalities. VISUALIZED UPPER ABDOMEN: Normal. OTHER FINDINGS: None. IMPRESSION: Elevated right hemidiaphragm. Probable small right pleural effusion. Consider the possibility of subpulmonic pleural effusion. Right basilar atelectasis.
--- NOTE | 2018-06-03 16:45 | CP.PCM.PN ---
<Jerry Rodriguez - Last Filed: 06/03/18 16:42> Subjective - Date & Time of Evaluation Date of Evaluation: 06/03/18 Time of Evaluation: 14:30 - Subjective Subjective: Surgery Progress Note- Dr. Dorsey Patient seen and examined at bedside. Needed to Cancel OR today due to patient status deterioting including kidney function. States minimal abd pain, with some tenderness to RUQ. Will get Nephro consult. required venti-mask from nasal canula, now saturating 97%. Afebrile overnight. will resume chemical DVT ppx Objective - Vital Signs/Intake and Output Vital Signs (last 24 hours): Temp Pulse Resp BP Pulse Ox 97.9 F 72 20 137/74 93 L 06/03/18 16:00 06/03/18 16:00 06/03/18 16:26 06/03/18 16:00 06/03/18 16:00 Intake and Output: 06/03/18 06/03/18 06:59 18:59 Intake Total 340 0 Balance 340 0 - Medications Medications: Current Medications Amlodipine Besylate (Norvasc) 10 mg PO DAILY [facility] Last Admin: 06/03/18 10:53 Dose: Not Given Carvedilol (Coreg) 6.25 mg PO BID [facility] Last Admin: 06/03/18 11:52 Dose: Not Given Dextrose (Dextrose 50% Inj) 0 ml IV STAT PRN; Protocol PRN Reason: Hypoglycemia Protocol Dextrose (Glutose 15) 0 gm PO ONCE PRN; Protocol PRN Reason: Hypoglycemia Protocol Enoxaparin Sodium (Lovenox) 30 mg SC DAILY [facility] Last Admin: 06/02/18 09:26 Dose: 30 mg Glucagon (Glucagen Diagnostic Kit) 0 mg IM STAT PRN; Protocol PRN Reason: Hypoglycemia Protocol Lactated Ringer's (Lactated Ringer's) 1,000 mls @ 100 mls/hr IV .Q10H [facility] Last Admin: 06/02/18 08:31 Dose: Not Given Meropenem 1 gm/ Sodium (Chloride) 100 mls @ 100 mls/hr IVPB Q12H [facility]; Protocol Last Admin: 06/03/18 13:39 Dose: 100 mls/hr Insulin Human Regular (Novolin R) 0 unit SC ACHS [facility]; Protocol Last Admin: 06/03/18 11:52 Dose: Not Given Losartan Potassium (Cozaar) 12.5 mg PO DAILY [facility] Last Admin: 06/02/18 09:26 Dose: 12.5 mg Morphine Sulfate (Morphine) 2 mg IVP Q4 PRN PRN Reason: Pain, severe (8-10) Last Admin: 06/02/18 14:39 Dose: 2 mg Ondansetron HCl (Zofran Inj) 4 mg IVP Q4H PRN PRN Reason: Nausea/Vomiting Last Admin: 05/31/18 12:44 Dose: 4 mg - Labs Labs: 06/03/18 06:31 06/03/18 06:31 PT 13.5 SECONDS (9.7-12.2) H 06/03/18 06:31 INR 1.2 06/03/18 06:31 APTT 34 SECONDS (21-34) 06/03/18 06:31 - Constitutional Appears: Non-toxic, No Acute Distress - Head Exam Head Exam: ATRAUMATIC - Eye Exam Eye Exam: EOMI. absent: Scleral icterus - ENT Exam ENT Exam: Mucous Membranes Moist - Respiratory Exam Respiratory Exam: Wheezes. absent: Accessory Muscle Use, Respiratory Distress - Cardiovascular Exam Cardiovascular Exam: REGULAR RHYTHM. absent: Bradycardia, Tachycardia - GI/Abdominal Exam GI & Abdominal Exam: Soft, Tenderness (tender to deep palpation in RUQ). absent: Distended, Firm, Guarding, Rigid - Neurological Exam Neurological Exam: Alert, Awake, Oriented x3 - Psychiatric Exam Psychiatric exam: Normal Affect - Skin Skin Exam: Intact, Warm Assessment and Plan - Assessment and Plan (Free Text) Assessment: 67F w/ Acute Cholecystitis Plan: - will obtain IR consult for Cholecystostomy tube - c/s Nephrology for DORIS; all recs appreciated - c/w ABx - serial abd exams - can resume diet as tolerated - NPO after MN for possible kleber tube tomorrow - d/w Dr. Dorsey surgical attending <Anatoly Dorsey - Last Filed: 06/03/18 17:48> Objective - Vital Signs/Intake and Output Vital Signs (last 24 hours): Temp Pulse Resp BP Pulse Ox 97.9 F 72 20 137/74 93 L 06/03/18 16:00 06/03/18 16:00 06/03/18 16:26 06/03/18 16:00 06/03/18 16:00 Intake and Output: 06/03/18 06/03/18 06:59 18:59 Intake Total 340 0 Balance 340 0 - Medications Medications: Current Medications Amlodipine Besylate (Norvasc) 10 mg PO DAILY [facility] Last Admin: 06/03/18 10:53 Dose: Not Given Carvedilol (Coreg) 6.25 mg PO BID [facility] Last Admin: 06/03/18 11:52 Dose: Not Given Dextrose (Dextrose 50% Inj) 0 ml IV STAT PRN; Protocol PRN Reason: Hypoglycemia Protocol Dextrose (Glutose 15) 0 gm PO ONCE PRN; Protocol PRN Reason: Hypoglycemia Protocol Enoxaparin Sodium (Lovenox) 30 mg SC DAILY [facility] Last Admin: 06/02/18 09:26 Dose: 30 mg Glucagon (Glucagen Diagnostic Kit) 0 mg IM STAT PRN; Protocol PRN Reason: Hypoglycemia Protocol Lactated Ringer's (Lactated Ringer's) 1,000 mls @ 100 mls/hr IV .Q10H [facility] Last Admin: 06/02/18 08:31 Dose: Not Given Meropenem 1 gm/ Sodium (Chloride) 100 mls @ 100 mls/hr IVPB Q12H [facility]; Protocol Last Admin: 06/03/18 13:39 Dose: 100 mls/hr Insulin Human Regular (Novolin R) 0 unit SC ACHS [facility]; Protocol Last Admin: 06/03/18 11:52 Dose: Not Given Losartan Potassium (Cozaar) 12.5 mg PO DAILY [facility] Last Admin: 06/02/18 09:26 Dose: 12.5 mg Morphine Sulfate (Morphine) 2 mg IVP Q4 PRN PRN Reason: Pain, severe (8-10) Last Admin: 06/02/18 14:39 Dose: 2 mg Ondansetron HCl (Zofran Inj) 4 mg IVP Q4H PRN PRN Reason: Nausea/Vomiting Last Admin: 05/31/18 12:44 Dose: 4 mg - Labs Labs: 06/03/18 06:31 06/03/18 06:31 PT 13.5 SECONDS (9.7-12.2) H 06/03/18 06:31 INR 1.2 06/03/18 06:31 APTT 34 SECONDS (21-34) 06/03/18 06:31 Attending/Attestation - Attestation I have personally seen and examined this patient.: Yes I have fully participated in the care of the patient.: Yes I have reviewed all pertinent clinical information, including history, physical exam and plan: Yes Notes (Text): Pt was seen and examined at bedside Agree with above note and assessment Pt is short of breath and increasing creatinine As per anesthesia team, pt is very high risk for operation Will Cancel operation for now. IR Drainage of Gallbladder tomorrow c.w IV antibiotics Nephrology consult Plan d.w pt and daughter in detail Risk and benefit explained in detail.
[2018-06-03] MEDS ORDERED: Nitroglycerin 2% Ointment Foilpak UD TOP PRN (16:58)
--- NOTE | 2018-06-03 18:05 | CP.PCM.CON ---
History of Present Illness - History of Present Illness History of Present Illness: Nephrology Consultation Note: Assessment: critical acute cholecystitis Acute Kidney Injury (N17.9) likely hemodynamic due to sepsis/ATN, BP fluctuations, limited oral intake Diabetic chronic Kidney Disease (E11.22) Hypertensive Chronic Kidney Disease (I12.9) with HTN urgency Chronic Kidney Disease (N18.3) Stage 3 with ? mg proteinuria (R80.9) likely due to DM/HTN Anemia (D64.9), severe pHTN with severe TR. Plan No acute need for renal replacement therapy at this time. Hypertension control with meds as ordered. Maintain hemodynamics stable. Avoid hypotension. hold ACEI/ARB due to recent DORIS Monitor Input/Output, daily weights and renal function with basic metabolic panel cardiology, ID following supplement lytes as needed Dose meds/antibiotics for reduced GFR. Avoid fleets enema/magnesium based laxatives. Avoid nephrotoxins/NSAIDs/ iodinated contrast (unless needed emergently) Glycemic control Further work up/management as per primary team Thanks for allowing me to participate in care of your patient. Will follow joesph berry with you. Please call if any Qs. had d/w team Dr Ruiz Choi Office: [phone] Chief Complaint; cholecytitis Reason for consult: Acute Kidney Injury HPI: Pt is a 67 F with hx of diabetes Mellitus ( years), hypertension (years) CVA presented with complaints of abdomen pain and found to have Acute cholecysitis. also with severe pHTN with severe TR. Denies OTC/herbal meds or NSAIDs No recent iodinated contrast exposure. No obvious episodes of low BP but noted fluctuations. episode of bp in 200+ noted pt not aware about kidney disease in past. baseline cr 1.0-1.4 likely reporesent underlying CKD 3 ROS: Cardiovascular: No chest pain. Pulmonary: denies shortness of breath Gastrointestinal: denies abdominal pain No nausea. No vomiting. Genitourinary: No pain while urinating. Denies blood in urine. All other negative except as mentioned in HPI Physical Examination: General Appearance: Comfortable, in no acute respiratory distress, co-operative . ill appearing. on high flow o2 Vitals reviewed and noted as below Head; Atraumatic, normocephalic ENT: no ulcers no thrush. Tongue is midline. Oropharynx: no rash or ulcers. EYES: Rt eye unable to see. Eye muscles and extraocular movement intact. Sclera is anicteric. Neck; supple no lymphadenopathy, no thyromegaly or bruit Lungs: Normal respiratory rate/effort. Breath sounds reduced at Rt base with crackle Heart: Normal rate. s1s2 normal. No rub or gallop. Extremities: no edema. No varicose veins Neurological: Patient is alert, awake and oriented. Skin: Warm and dry. Normal turgor. No rash. Palpitation: Normal elasticity for age Abdomen: Abdomen is soft/distended. Bowel sounds +. There is no abdominal tenderness, no guarding/rigidity no organomegaly Psych: lack insight and has normal affect/mood MSK: no joint tenderness or swelling. Digits and nails normal, no deformity : kidney or bladder not palpable Labs/imaging reviewed. Past medical history, past surgical history, family history, social history, allergy reviewed and noted as below Family hx: no hx of CKD. 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) Other/Comment: h/o CVA 2003 - HEENT Hx HEENT Problems: Yes Other/Comment: RT EYE PROSTHESIS - ENDOCRINE/METABOLIC Hx Endocrine Disorders: Yes Hx Diabetes Mellitus Type 2: Yes - HEMATOLOGICAL/ONCOLOGICAL Hx Human Immunodeficiency Virus (HIV): No - MUSCULOSKELETAL/RHEUMATOLOGICAL Hx Falls: No - GASTROINTESTINAL Hx Constipation: Yes - PSYCHIATRIC Hx Substance Use: No - SURGICAL HISTORY Hx Appendectomy: Yes - ANESTHESIA Hx Anesthesia: Yes Hx Anesthesia Reactions: No Hx Malignant Hyperthermia: No Meds Allergies/Adverse Reactions: Allergies Allergy/AdvReac Type Severity Reaction Status Date / Time No Known Allergies Allergy Verified 05/30/18 11:27 - Medications Medications: Current Medications Amlodipine Besylate (Norvasc) 10 mg PO DAILY [facility] Last Admin: 06/03/18 10:53 Dose: Not Given Carvedilol (Coreg) 6.25 mg PO BID [facility] Last Admin: 06/03/18 11:52 Dose: Not Given Dextrose (Dextrose 50% Inj) 0 ml IV STAT PRN; Protocol PRN Reason: Hypoglycemia Protocol Dextrose (Glutose 15) 0 gm PO ONCE PRN; Protocol PRN Reason: Hypoglycemia Protocol Enoxaparin Sodium (Lovenox) 30 mg SC DAILY [facility] Last Admin: 06/02/18 09:26 Dose: 30 mg Glucagon (Glucagen Diagnostic Kit) 0 mg IM STAT PRN; Protocol PRN Reason: Hypoglycemia Protocol Lactated Ringer's (Lactated Ringer's) 1,000 mls @ 100 mls/hr IV .Q10H [facility] Last Admin: 06/02/18 08:31 Dose: Not Given Meropenem 1 gm/ Sodium (Chloride) 100 mls @ 100 mls/hr IVPB Q12H [facility]; Protocol Last Admin: 06/03/18 13:39 Dose: 100 mls/hr Insulin Human Regular (Novolin R) 0 unit SC ACHS [facility]; Protocol Last Admin: 06/03/18 11:52 Dose: Not Given Losartan Potassium (Cozaar) 12.5 mg PO DAILY [facility] Last Admin: 06/02/18 09:26 Dose: 12.5 mg Morphine Sulfate (Morphine) 2 mg IVP Q4 PRN PRN Reason: Pain, severe (8-10) Last Admin: 06/02/18 14:39 Dose: 2 mg Ondansetron HCl (Zofran Inj) 4 mg IVP Q4H PRN PRN Reason: Nausea/Vomiting Last Admin: 05/31/18 12:44 Dose: 4 mg Results - Vital Signs Recent Vital Signs: Last Vital Signs Temp 97.9 F 06/03/18 16:00 Pulse 72 06/03/18 16:00 Resp 20 06/03/18 16:26 BP 137/74 06/03/18 16:00 Pulse Ox 93 L 06/03/18 16:00 - Labs Result Diagrams: 06/03/18 06:31 06/03/18 06:31 Labs: Laboratory Results - last 24 hr 06/02/18 06/03/18 06/03/18 21:14 06:31 06:31 WBC 17.0 H RBC 3.95 Hgb 10.4 L Hct 31.6 L MCV 80.1 L MCH 26.3 L MCHC 32.8 L RDW 15.5 H Plt Count 410 H MPV 9.3 Neut % (Auto) 84.4 H Lymph % (Auto) 6.8 L Saline % (Auto) 5.7 Eos % (Auto) 2.7 Baso % (Auto) 0.4 Neut # (Auto) 14.4 H Lymph # (Auto) 1.2 Saline # (Auto) 1.0 H Eos # (Auto) 0.5 Baso # (Auto) 0.1 Neutrophils % (Manual) 86 H Band Neutrophils % 2 Lymphocytes % (Manual) 6 L Reactive Lymphs % 1 H Monocytes % (Manual) 3 Eosinophils % (Manual) 1 Basophils % (Manual) 1 Platelet Estimate Normal Large Platelets Present Hypochromasia (manual) Slight Poikilocytosis (manual Slight Anisocytosis (manual) Slight Acanthocytes (Spur) Slight PT 13.5 H INR 1.2 APTT 34 Puncture Site pCO2 pO2 HCO3 ABG pH ABG Total CO2 ABG O2 Saturation ABG Base Excess Compa Test ABG Potassium A-a O2 Difference Respiratory Index Glucose Lactate FiO2 Sodium Potassium Chloride Carbon Dioxide Anion Gap BUN Creatinine Est GFR ( Amer) Est GFR (Non-Af Amer) POC Glucose (mg/dL) 114 H Random Glucose Hemoglobin A1c Calcium Phosphorus Magnesium Total Bilirubin AST ALT Alkaline Phosphatase Total Protein Albumin Globulin Albumin/Globulin Ratio Arterial Blood Potassium Blood Type Antibody Screen 06/03/18 06/03/18 06/03/18 06:31 06:31 06:31 WBC RBC Hgb Hct MCV MCH MCHC RDW Plt Count MPV Neut % (Auto) Lymph % (Auto) Saline % (Auto) Eos % (Auto) Baso % (Auto) Neut # (Auto) Lymph # (Auto) Saline # (Auto) Eos # (Auto) Baso # (Auto) Neutrophils % (Manual) Band Neutrophils % Lymphocytes % (Manual) Reactive Lymphs % Monocytes % (Manual) Eosinophils % (Manual) Basophils % (Manual) Platelet Estimate Large Platelets Hypochromasia (manual) Poikilocytosis (manual Anisocytosis (manual) Acanthocytes (Spur) PT INR APTT Puncture Site pCO2 pO2 HCO3 ABG pH ABG Total CO2 ABG O2 Saturation ABG Base Excess Compa Test ABG Potassium A-a O2 Difference Respiratory Index Glucose Lactate FiO2 Sodium 143 Potassium 3.5 L Chloride 110 H Carbon Dioxide 28 Anion Gap 8 L BUN 40 H Creatinine 2.5 H Est GFR ( Amer) 23 Est GFR (Non-Af Amer) 19 POC Glucose (mg/dL) Random Glucose 172 H Hemoglobin A1c 8.6 H D Calcium 8.6 Phosphorus 3.1 Magnesium 2.5 H Total Bilirubin 1.0 AST 39 H ALT 33 Alkaline Phosphatase 265 H Total Protein 6.1 L Albumin 3.0 L Globulin 3.1 Albumin/Globulin Ratio 0.9 L Arterial Blood Potassium Blood Type A POSITIVE Antibody Screen Negative 06/03/18 06/03/18 06/03/18 07:21 11:15 12:48 WBC RBC Hgb Hct MCV MCH MCHC RDW Plt Count MPV Neut % (Auto) Lymph % (Auto) Saline % (Auto) Eos % (Auto) Baso % (Auto) Neut # (Auto) Lymph # (Auto) Saline # (Auto) Eos # (Auto) Baso # (Auto) Neutrophils % (Manual) Band Neutrophils % Lymphocytes % (Manual) Reactive Lymphs % Monocytes % (Manual) Eosinophils % (Manual) Basophils % (Manual) Platelet Estimate Large Platelets Hypochromasia (manual) Poikilocytosis (manual Anisocytosis (manual) Acanthocytes (Spur) PT INR APTT Puncture Site Rra pCO2 30 L pO2 154 H HCO3 24.3 ABG pH 7.47 H ABG Total CO2 22.7 ABG O2 Saturation 99.1 H ABG Base Excess -0.9 Compa Test Pos ABG Potassium 3.5 L A-a O2 Difference 522.0 Respiratory Index 3.4 Glucose 158 H Lactate 1.0 FiO2 100.0 Sodium 146.0 Potassium Chloride 115.0 H Carbon Dioxide Anion Gap BUN Creatinine Est GFR ( Amer) Est GFR (Non-Af Amer) POC Glucose (mg/dL) 173 H 185 H Random Glucose Hemoglobin A1c Calcium Phosphorus Magnesium Total Bilirubin AST ALT Alkaline Phosphatase Total Protein Albumin Globulin Albumin/Globulin Ratio Arterial Blood Potassium 3.5 L Blood Type Antibody Screen 06/03/18 16:25 WBC RBC Hgb Hct MCV MCH MCHC RDW Plt Count MPV Neut % (Auto) Lymph % (Auto) Saline % (Auto) Eos % (Auto) Baso % (Auto) Neut # (Auto) Lymph # (Auto) Saline # (Auto) Eos # (Auto) Baso # (Auto) Neutrophils % (Manual) Band Neutrophils % Lymphocytes % (Manual) Reactive Lymphs % Monocytes % (Manual) Eosinophils % (Manual) Basophils % (Manual) Platelet Estimate Large Platelets Hypochromasia (manual) Poikilocytosis (manual Anisocytosis (manual) Acanthocytes (Spur) PT INR APTT Puncture Site pCO2 pO2 HCO3 ABG pH ABG Total CO2 ABG O2 Saturation ABG Base Excess Compa Test ABG Potassium A-a O2 Difference Respiratory Index Glucose Lactate FiO2 Sodium Potassium Chloride Carbon Dioxide Anion Gap BUN Creatinine Est GFR ( Amer) Est GFR (Non-Af Amer) POC Glucose (mg/dL) 254 H Random Glucose Hemoglobin A1c Calcium Phosphorus Magnesium Total Bilirubin AST ALT Alkaline Phosphatase Total Protein Albumin Globulin Albumin/Globulin Ratio Arterial Blood Potassium Blood Type Antibody Screen
--- NOTE | 2018-06-03 19:35 | CP.PCM.PN ---
Subjective - Date & Time of Evaluation Date of Evaluation: 06/03/18 - Subjective Subjective: patient examined today no nausea, no vomiting, no fever, no diarrhea, no sob Objective - Vital Signs/Intake and Output Vital Signs (last 24 hours): Temp Pulse Resp BP Pulse Ox 97.9 F 72 20 137/74 93 L 06/03/18 16:00 06/03/18 16:00 06/03/18 19:20 06/03/18 16:00 06/03/18 16:00 Intake and Output: 06/03/18 06/04/18 18:59 06:59 Intake Total 0 Balance 0 - Medications Medications: Current Medications Amlodipine Besylate (Norvasc) 10 mg PO DAILY [facility] Last Admin: 06/03/18 10:53 Dose: Not Given Carvedilol (Coreg) 6.25 mg PO BID [facility] Last Admin: 06/03/18 18:03 Dose: 6.25 mg Dextrose (Dextrose 50% Inj) 0 ml IV STAT PRN; Protocol PRN Reason: Hypoglycemia Protocol Dextrose (Glutose 15) 0 gm PO ONCE PRN; Protocol PRN Reason: Hypoglycemia Protocol Enoxaparin Sodium (Lovenox) 30 mg SC DAILY [facility] Last Admin: 06/02/18 09:26 Dose: 30 mg Glucagon (Glucagen Diagnostic Kit) 0 mg IM STAT PRN; Protocol PRN Reason: Hypoglycemia Protocol Lactated Ringer's (Lactated Ringer's) 1,000 mls @ 100 mls/hr IV .Q10H [facility] Last Admin: 06/02/18 08:31 Dose: Not Given Meropenem 1 gm/ Sodium (Chloride) 100 mls @ 100 mls/hr IVPB Q12H [facility]; Protocol Last Admin: 06/03/18 13:39 Dose: 100 mls/hr Insulin Human Regular (Novolin R) 0 unit SC ACHS [facility]; Protocol Last Admin: 06/03/18 18:04 Dose: 6 units Losartan Potassium (Cozaar) 12.5 mg PO DAILY [facility] Last Admin: 06/02/18 09:26 Dose: 12.5 mg Morphine Sulfate (Morphine) 2 mg IVP Q4 PRN PRN Reason: Pain, severe (8-10) Last Admin: 06/02/18 14:39 Dose: 2 mg Ondansetron HCl (Zofran Inj) 4 mg IVP Q4H PRN PRN Reason: Nausea/Vomiting Last Admin: 05/31/18 12:44 Dose: 4 mg - Labs Labs: 06/03/18 06:31 06/03/18 06:31 PT 13.5 SECONDS (9.7-12.2) H 06/03/18 06:31 INR 1.2 06/03/18 06:31 APTT 34 SECONDS (21-34) 06/03/18 06:31 - Constitutional Appears: Well - Head Exam Head Exam: ATRAUMATIC, NORMAL INSPECTION, NORMOCEPHALIC - Eye Exam Eye Exam: EOMI, Normal appearance, PERRL Pupil Exam: NORMAL ACCOMODATION, PERRL - ENT Exam ENT Exam: Mucous Membranes Moist, Normal Exam - Neck Exam Neck Exam: Full ROM, Normal Inspection. absent: Lymphadenopathy - Respiratory Exam Respiratory Exam: Decreased Breath Sounds - Cardiovascular Exam Cardiovascular Exam: REGULAR RHYTHM, +S1, +S2 - GI/Abdominal Exam GI & Abdominal Exam: Soft, Diminished Bowel Sounds - Rectal Exam Rectal Exam: Deferred - Neurological Exam Neurological Exam: Oriented x3 Assessment and Plan (1) Abdominal pain Status: Acute (2) Cholecystitis Status: Acute (3) Nausea Status: Acute (4) CVA, old, dysarthria Status: Acute (5) Contusion Status: Acute (6) Hyperglycemia Status: Acute (7) Ischemic stroke Status: Acute (8) Slurring of speech Status: Acute (9) Toothache Status: Acute (10) UTI (urinary tract infection) Status: Acute (11) Diabetes mellitus Status: Chronic (12) Hyperlipidemia Status: Chronic (13) Hypertension Status: Chronic - Assessment and Plan (Free Text) Plan: medications reviewed labs reviewed vitals reviewed
--- NOTE | 2018-06-03 21:37 | CP.PCM.PN ---
Subjective - Date & Time of Evaluation Date of Evaluation: 06/03/18 Time of Evaluation: 07:00 - Subjective Subjective: awake alert NAD 'less pain no fever Objective - Vital Signs/Intake and Output Vital Signs (last 24 hours): Temp Pulse Resp BP Pulse Ox 97.9 F 72 20 137/74 93 L 06/03/18 16:00 06/03/18 16:00 06/03/18 21:30 06/03/18 16:00 06/03/18 16:00 Intake and Output: 06/03/18 06/04/18 18:59 06:59 Intake Total 0 Balance 0 - Medications Medications: Current Medications Amlodipine Besylate (Norvasc) 10 mg PO DAILY [facility] Last Admin: 06/03/18 10:53 Dose: Not Given Carvedilol (Coreg) 6.25 mg PO BID [facility] Last Admin: 06/03/18 18:03 Dose: 6.25 mg Dextrose (Dextrose 50% Inj) 0 ml IV STAT PRN; Protocol PRN Reason: Hypoglycemia Protocol Dextrose (Glutose 15) 0 gm PO ONCE PRN; Protocol PRN Reason: Hypoglycemia Protocol Enoxaparin Sodium (Lovenox) 30 mg SC DAILY [facility] Last Admin: 06/02/18 09:26 Dose: 30 mg Glucagon (Glucagen Diagnostic Kit) 0 mg IM STAT PRN; Protocol PRN Reason: Hypoglycemia Protocol Lactated Ringer's (Lactated Ringer's) 1,000 mls @ 100 mls/hr IV .Q10H [facility] Last Admin: 06/02/18 08:31 Dose: Not Given Meropenem 1 gm/ Sodium (Chloride) 100 mls @ 100 mls/hr IVPB Q12H [facility]; Protocol Last Admin: 06/03/18 13:39 Dose: 100 mls/hr Insulin Human Regular (Novolin R) 0 unit SC ACHS [facility]; Protocol Last Admin: 06/03/18 18:04 Dose: 6 units Losartan Potassium (Cozaar) 12.5 mg PO DAILY [facility] Last Admin: 06/02/18 09:26 Dose: 12.5 mg Morphine Sulfate (Morphine) 2 mg IVP Q4 PRN PRN Reason: Pain, severe (8-10) Last Admin: 06/02/18 14:39 Dose: 2 mg Ondansetron HCl (Zofran Inj) 4 mg IVP Q4H PRN PRN Reason: Nausea/Vomiting Last Admin: 05/31/18 12:44 Dose: 4 mg - Labs Labs: 06/03/18 06:31 06/03/18 06:31 PT 13.5 SECONDS (9.7-12.2) H 06/03/18 06:31 INR 1.2 06/03/18 06:31 APTT 34 SECONDS (21-34) 06/03/18 06:31 - Constitutional Appears: Non-toxic, No Acute Distress, Chronically Ill - Head Exam Head Exam: NORMOCEPHALIC - Eye Exam Eye Exam: absent: Scleral icterus - ENT Exam ENT Exam: Mucous Membranes Dry - Neck Exam Neck Exam: absent: Lymphadenopathy - Respiratory Exam Respiratory Exam: Decreased Breath Sounds, Rhonchi - Cardiovascular Exam Cardiovascular Exam: REGULAR RHYTHM, +S1, +S2 - GI/Abdominal Exam GI & Abdominal Exam: Distended, Soft, Diminished Bowel Sounds. absent: Tend erness, Rebound - Rectal Exam Rectal Exam: Deferred - Exam Exam: NORMAL INSPECTION - Extremities Exam Extremities Exam: Pedal Edema - Back Exam Back Exam: absent: CVA tenderness (L), CVA tenderness (R) - Neurological Exam Neurological Exam: Alert, Awake, CN II-XII Intact, Oriented x3 - Psychiatric Exam Psychiatric exam: Depressed - Skin Skin Exam: Dry Assessment and Plan (1) Abdominal pain Status: Acute (2) Cholecystitis Status: Acute (3) CVA, old, dysarthria Status: Acute (4) Cholangitis Status: Acute (5) Diabetes mellitus Status: Chronic (6) Hyperlipidemia Status: Chronic (7) Hypertension Status: Chronic (8) DORIS (acute kidney injury) Status: Acute - Assessment and Plan (Free Text) Assessment: DORIS sepsis cholecystitis DM poorly controlled HTN CAD poor prognosis renal on board surgery on hold
[2018-06-03] MEDS ORDERED: Rosuvastatin Calcium 2.5 mg Tab PO SCH (22:00)
[2018-06-04] MEDS: Meropenem 1 GM in Sodium Chloride 0.9% 100 ML IVPB SCH ×2 (02:03→14:08)
[2018-06-04 06:54] LABS: BASO # 0.1 K/uL (0.0-0.2); BASO % 0.3 % (0.0-2.0); EOS # 0.6 K/uL (0.0-0.7); EOS % 3.5 % (0.0-4.0); HEMOGLOBIN 9.8 g/dL (11.0-16.0); LYMPH # 1.8 K/uL (1.0-4.3); LYMPH % 10.3 % (20.0-40.0); MEAN CELL VOLUME 79.5 fL (81.0-99.0); MEAN CORPUSCULAR HEMOGLOBIN 25.9 pg (27.0-31.0); MEAN CORPUSCULAR HGB CONC 32.6 g/dL (33.0-37.0); MEAN PLATELET VOLUME 9.1 fL (7.2-11.7); MONO # 1.2 K/uL (0.0-0.8); MONO % 6.9 % (0.0-10.0); NEUT # 14.1 K/uL (1.8-7.0); NRBC % 0.1 % (0.0-2.0); RBC 3.78 Mil/uL (3.80-5.20); RED CELL DISTRIBUTION WIDTH 15.7 % (11.5-14.5); WHITE BLOOD COUNT 17.8 K/uL (4.8-10.8)
[2018-06-04 07:08] LABS: ALBUMIN 2.9 g/dL (3.5-5.0); CALCIUM 8.1 mg/dl (8.6-10.4)
[2018-06-04 07:14] LABS: INR 1.2; PROTHROMBIN TIME 13.1 SECONDS (9.7-12.2)
[2018-06-04] MEDS: (Novolin R) Insulin Human Regular 100 units/ml vial SC SCH ×4 (08:24→22:15)
[2018-06-04] MEDS: Enoxaparin 30 mg Syringe SC SCH (10:15)
--- NOTE | 2018-06-04 11:01 | CP.PCM.PN ---
Subjective - Date & Time of Evaluation Date of Evaluation: 06/04/18 Time of Evaluation: 10:56 - Subjective Subjective: Nephrology Consultation Note: Assessment: stable acute cholecystitis Acute Kidney Injury (N17.9) likely hemodynamic due to sepsis/ATN, BP fluctuations, limited oral intake Diabetic chronic Kidney Disease (E11.22) Hypertensive Chronic Kidney Disease (I12.9) with HTN urgency Chronic Kidney Disease (N18.3) Stage 3 with ? mg proteinuria (R80.9) likely due to DM/HTN Anemia (D64.9), severe pHTN with severe TR. Plan No acute need for renal replacement therapy at this time. anticipate spontaneous renal recovery over next few days. IVF will likely help with renal function but hesistant to give as pt on high flow O2 and Rt pleural effusion ? reactive to acute kleber pt planned for cholecystotomy tube placement today by IR 06/04/18. gall bladder surgery was deferred. consider to evaluate Rt pleural effusion further and may be drain her to help with respi status Hypertension control with meds as ordered. Maintain hemodynamics stable. Avoid hypotension. hold ACEI/ARB due to recent DORIS Monitor Input/Output, daily weights and renal function with basic metabolic panel cardiology, ID surgery following supplement lytes as needed check UA, urine Na/cr Dose meds/antibiotics for reduced GFR. Avoid fleets enema/magnesium based laxatives. Avoid nephrotoxins/NSAIDs/ iodinated contrast (unless needed emergently) Glycemic control Further work up/management as per primary team Thanks for allowing me to participate in care of your patient. Will follow patient with you. Please call if any Qs. had d/w team Dr Ruiz Choi Office: [phone] Chief Complaint; cholecytitis Reason for consult: Acute Kidney Injury HPI: Pt is a 67 F with hx of diabetes Mellitus ( years), hypertension (years) CVA presented with complaints of abdomen pain and found to have Acute cholecysitis. also with severe pHTN with severe TR. Denies OTC/herbal meds or NSAIDs No recent iodinated contrast exposure. No obvious episodes of low BP but noted fluctuations. episode of bp in 200+ noted pt not aware about kidney disease in past. baseline cr 1.0-1.4 likely reporesent underlying CKD 3 ROS: Cardiovascular: No chest pain. Pulmonary: denies shortness of breath Gastrointestinal: denies abdominal pain No nausea. No vomiting. Genitourinary: No pain while urinating. Denies blood in urine. All other negative except as mentioned in HPI Physical Examination: General Appearance: Comfortable, in no acute respiratory distress, co-operative . ill appearing. on high flow o2 Vitals reviewed and noted as below Head; Atraumatic, normocephalic ENT: no ulcers no thrush. Tongue is midline. Oropharynx: no rash or ulcers. EYES: Rt eye unable to see. Eye muscles and extraocular movement intact. Sclera is anicteric. Neck; supple no lymphadenopathy, no thyromegaly or bruit Lungs: Normal respiratory rate/effort. Breath sounds reduced at Rt base with crackle and rale Heart: Normal rate. s1s2 normal. No rub or gallop. Extremities: no edema. No varicose veins Neurological: Patient is alert, awake and oriented. Skin: Warm and dry. Normal turgor. No rash. Palpitation: Normal elasticity for age Abdomen: Abdomen is soft/distended. Bowel sounds +. There is no abdominal tenderness, no guarding/rigidity no organomegaly Psych: lack insight and has normal affect/mood MSK: no joint tenderness or swelling. Digits and nails normal, no deformity : kidney or bladder not palpable Labs/imaging reviewed. Past medical history, past surgical history, family history, social history, allergy reviewed and noted as below Family hx: no hx of CKD. Rest non-contributory UA 2+ protein and 1+ blood renal imaging okay on sono but MRCP reported renal atrophy Objective - Vital Signs/Intake and Output Vital Signs (last 24 hours): Temp Pulse Resp BP Pulse Ox 98.4 F 60 20 145/72 94 L 06/04/18 08:10 06/04/18 08:10 06/04/18 08:55 06/04/18 08:10 06/04/18 08:10 Intake and Output: 06/04/18 06/04/18 06:59 18:59 Intake Total 350 Balance 350 - Medications Medications: Current Medications Amlodipine Besylate (Norvasc) 10 mg PO DAILY [facility] Last Admin: 06/04/18 10:27 Dose: 10 mg Carvedilol (Coreg) 6.25 mg PO BID [facility] Last Admin: 06/04/18 10:27 Dose: 6.25 mg Dextrose (Dextrose 50% Inj) 0 ml IV STAT PRN; Protocol PRN Reason: Hypoglycemia Protocol Dextrose (Glutose 15) 0 gm PO ONCE PRN; Protocol PRN Reason: Hypoglycemia Protocol Enoxaparin Sodium (Lovenox) 30 mg SC DAILY [facility] Last Admin: 06/04/18 10:15 Dose: Not Given Glucagon (Glucagen Diagnostic Kit) 0 mg IM STAT PRN; Protocol PRN Reason: Hypoglycemia Protocol Meropenem 1 gm/ Sodium (Chloride) 100 mls @ 100 mls/hr IVPB Q12H [facility]; Protocol Last Admin: 06/04/18 02:03 Dose: 100 mls/hr Insulin Human Regular (Novolin R) 0 unit SC ACHS [facility]; Protocol Last Admin: 06/04/18 08:24 Dose: Not Given Losartan Potassium (Cozaar) 12.5 mg PO DAILY [facility] Last Admin: 06/02/18 09:26 Dose: 12.5 mg Morphine Sulfate (Morphine) 2 mg IVP Q4 PRN PRN Reason: Pain, severe (8-10) Last Admin: 06/02/18 14:39 Dose: 2 mg Ondansetron HCl (Zofran Inj) 4 mg IVP Q4H PRN PRN Reason: Nausea/Vomiting Last Admin: 05/31/18 12:44 Dose: 4 mg - Labs Labs: 06/04/18 06:44 06/04/18 06:44 PT 13.1 SECONDS (9.7-12.2) H 06/04/18 06:44 INR 1.2 06/04/18 06:44 APTT 33 SECONDS (21-34) 06/04/18 06:44
--- NOTE | 2018-06-04 11:25 | PCM.SURG1 ---
Surgeon's Initial Post Op Note - Surgeon's Notes Surgeon: Cornelius Johnson MD Second Baller: NONE Type of Anesthesia: Local Pre-Operative Diagnosis: Cholecystitis Operative Findings: US showed a distended gallbladder Post-Operative Diagnosis: Cholecystitis Operation Performed: perc. cholecystostomy tube placement Specimen/Specimens Removed: 20 cc bile Estimated Blood Loss: EBL {In ML}: 1 Blood Products Given: N/A Drains Used: Arturo Sow Post-Op Condition: Fair Date of Surgery/Procedure: 06/04/18 Time of Surgery/Procedure: 11:20
--- NOTE | 2018-06-04 13:20 | US ---
PROCEDURE: Date of procedure: 06/04/2018 Procedure: 1. Percutaneous Cholecystostomy tube placement Medications: 8 cubic centimeters lidocaine 2 percent HISTORY: Acute cholecystitis TECHNIQUE: Following informed consent the patient right abdomen was marked. The patient was placed supine on the interventional table and procedure time-out was called. Ultrasound showed distended gallbladder. At the patient sedated, the skin was anesthetized with 2 percent lidocaine. Under direct ultrasound guidance, a [employer] catheter was advanced percutaneously into the gallbladder. Upon return of bile, an 035 wire was advanced into the gallbladder and was coiled within the gallbladder. The tract was dilated to accommodate 8.5 Icelandic drainage catheter which was formed within the gallbladder. Position of the catheter was confirmed with ultrasound. IMPRESSION: Percutaneous placement of a cholecystostomy tube.
--- NOTE | 2018-06-04 14:54 | CP.PCM.PN ---
Subjective - Date & Time of Evaluation Date of Evaluation: 06/04/18 - Subjective Subjective: patient seen and examined today no nausea no vomiting no diarrhea no fever no dizziness no shortness of breath Objective - Vital Signs/Intake and Output Vital Signs (last 24 hours): Temp Pulse Resp BP Pulse Ox 98.4 F 60 22 145/72 94 L 06/04/18 08:10 06/04/18 08:10 06/04/18 13:40 06/04/18 08:10 06/04/18 08:10 Intake and Output: 06/04/18 06/04/18 06:59 18:59 Intake Total 350 Balance 350 - Medications Medications: Current Medications Amlodipine Besylate (Norvasc) 10 mg PO DAILY [facility] Last Admin: 06/04/18 10:27 Dose: 10 mg Carvedilol (Coreg) 6.25 mg PO BID [facility] Last Admin: 06/04/18 10:27 Dose: 6.25 mg Dextrose (Dextrose 50% Inj) 0 ml IV STAT PRN; Protocol PRN Reason: Hypoglycemia Protocol Dextrose (Glutose 15) 0 gm PO ONCE PRN; Protocol PRN Reason: Hypoglycemia Protocol Enoxaparin Sodium (Lovenox) 30 mg SC DAILY [facility] Last Admin: 06/04/18 10:15 Dose: Not Given Glucagon (Glucagen Diagnostic Kit) 0 mg IM STAT PRN; Protocol PRN Reason: Hypoglycemia Protocol Meropenem 1 gm/ Sodium (Chloride) 100 mls @ 100 mls/hr IVPB Q12H [facility]; Protocol Last Admin: 06/04/18 14:08 Dose: 100 mls/hr Insulin Human Regular (Novolin R) 0 unit SC ACHS [facility]; Protocol Last Admin: 06/04/18 12:34 Dose: 2 units Losartan Potassium (Cozaar) 12.5 mg PO DAILY [facility] Last Admin: 06/02/18 09:26 Dose: 12.5 mg Morphine Sulfate (Morphine) 2 mg IVP Q4 PRN PRN Reason: Pain, severe (8-10) Last Admin: 06/02/18 14:39 Dose: 2 mg Ondansetron HCl (Zofran Inj) 4 mg IVP Q4H PRN PRN Reason: Nausea/Vomiting Last Admin: 05/31/18 12:44 Dose: 4 mg - Labs Labs: 06/04/18 06:44 06/04/18 06:44 PT 13.1 SECONDS (9.7-12.2) H 06/04/18 06:44 INR 1.2 06/04/18 06:44 APTT 33 SECONDS (21-34) 06/04/18 06:44 - Constitutional Appears: Well - Head Exam Head Exam: ATRAUMATIC, NORMAL INSPECTION, NORMOCEPHALIC - Eye Exam Eye Exam: EOMI, Normal appearance, PERRL Pupil Exam: NORMAL ACCOMODATION, PERRL - ENT Exam ENT Exam: Mucous Membranes Moist, Normal Exam - Neck Exam Neck Exam: Full ROM, Normal Inspection. absent: Lymphadenopathy - Respiratory Exam Respiratory Exam: Decreased Breath Sounds - Cardiovascular Exam Cardiovascular Exam: REGULAR RHYTHM, +S1, +S2 - GI/Abdominal Exam GI & Abdominal Exam: Diminished Bowel Sounds - Rectal Exam Rectal Exam: Deferred - Neurological Exam Neurological Exam: Oriented x3 Assessment and Plan (1) Abdominal pain Status: Acute (2) Cholecystitis Status: Acute (3) Nausea Status: Acute (4) CVA, old, dysarthria Status: Acute (5) Contusion Status: Acute (6) Hyperglycemia Status: Acute (7) Ischemic stroke Status: Acute (8) Slurring of speech Status: Acute (9) Toothache Status: Acute (10) UTI (urinary tract infection) Status: Acute (11) Diabetes mellitus Status: Chronic (12) Hyperlipidemia Status: Chronic (13) Hypertension Status: Chronic - Assessment and Plan (Free Text) Plan: medications reviewed labs reviewed vitals reviewed coreg cozaar dextrose 50% inj flagyl florastor glucagen diagnostic kit glutose 15 lovenox meropenem moorphine norvasc novolin R zofran in
--- NOTE | 2018-06-04 15:21 | CP.PCM.PN ---
Subjective - Date & Time of Evaluation Date of Evaluation: 06/04/18 Time of Evaluation: 15:17 - Subjective Subjective: PGY3 progress note for Dr. Post Pt seen and examined at bedside. Patient is s/p cholecystostomy tube placement today with drainage of 20 cc of bile. Patient is resting comfortably. arousable and answering questions. Complaining of mild RUQ abdominal pain. Denies f/C, N/V. Objective - Vital Signs/Intake and Output Vital Signs (last 24 hours): Temp Pulse Resp BP Pulse Ox 98.4 F 60 22 145/72 94 L 06/04/18 08:10 06/04/18 08:10 06/04/18 13:40 06/04/18 08:10 06/04/18 08:10 Intake and Output: 06/04/18 06/04/18 06:59 18:59 Intake Total 350 Balance 350 - Medications Medications: Current Medications Amlodipine Besylate (Norvasc) 10 mg PO DAILY [facility] Last Admin: 06/04/18 10:27 Dose: 10 mg Carvedilol (Coreg) 6.25 mg PO BID [facility] Last Admin: 06/04/18 10:27 Dose: 6.25 mg Dextrose (Dextrose 50% Inj) 0 ml IV STAT PRN; Protocol PRN Reason: Hypoglycemia Protocol Dextrose (Glutose 15) 0 gm PO ONCE PRN; Protocol PRN Reason: Hypoglycemia Protocol Enoxaparin Sodium (Lovenox) 30 mg SC DAILY [facility] Last Admin: 06/04/18 10:15 Dose: Not Given Glucagon (Glucagen Diagnostic Kit) 0 mg IM STAT PRN; Protocol PRN Reason: Hypoglycemia Protocol Meropenem 1 gm/ Sodium (Chloride) 100 mls @ 100 mls/hr IVPB Q12H [facility]; Protocol Last Admin: 06/04/18 14:08 Dose: 100 mls/hr Insulin Human Regular (Novolin R) 0 unit SC ACHS [facility]; Protocol Last Admin: 06/04/18 12:34 Dose: 2 units Losartan Potassium (Cozaar) 12.5 mg PO DAILY [facility] Last Admin: 06/02/18 09:26 Dose: 12.5 mg Morphine Sulfate (Morphine) 2 mg IVP Q4 PRN PRN Reason: Pain, severe (8-10) Last Admin: 06/02/18 14:39 Dose: 2 mg Ondansetron HCl (Zofran Inj) 4 mg IVP Q4H PRN PRN Reason: Nausea/Vomiting Last Admin: 05/31/18 12:44 Dose: 4 mg - Labs Labs: 06/04/18 06:44 06/04/18 06:44 PT 13.1 SECONDS (9.7-12.2) H 06/04/18 06:44 INR 1.2 06/04/18 06:44 APTT 33 SECONDS (21-34) 06/04/18 06:44 - Constitutional Appears: Non-toxic, No Acute Distress - Head Exam Head Exam: ATRAUMATIC, NORMOCEPHALIC - ENT Exam ENT Exam: Mucous Membranes Moist - Respiratory Exam Respiratory Exam: Clear to Ausculation Bilateral, NORMAL BREATHING PATTERN. absent: Rales, Rhonchi, Wheezes - Cardiovascular Exam Cardiovascular Exam: REGULAR RHYTHM, +S1, +S2. absent: Gallop, Rubs, Murmur - GI/Abdominal Exam GI & Abdominal Exam: Guarding, Soft, Tenderness (RUQ). absent: Distended, Firm - Extremities Exam Extremities Exam: absent: Pedal Edema, Tenderness - Neurological Exam Neurological Exam: Alert, Awake, Oriented x3 - Psychiatric Exam Psychiatric exam: Normal Affect, Normal Mood - Skin Skin Exam: Dry, Intact, Normal Color, Warm Assessment and Plan - Assessment and Plan (Free Text) Assessment: Cholecystitis s/p cholecystostomy tube placement POD #0 - Cholecystostomy tube drained about 20 cc on placement - Will trend LFTs in am CXR (05/30/18): IMPRESSION: Elevation of the right hemidiaphragm. The right lung appears smaller than the left. Mild constipation. Ct A/P (05/30/18): Findings suspicious for acute cholecystitis. If indicated further assessment by ultrasound may be obtained. Mild constipation. US (05/30/18): Distended GB w/ sludge, possible small gallstones. CBD 4.5 mm. Acute kleber should be considered. MRCP (06/01/18): No filling defects w/in CBD. Distended GB. Fatty atrophy of pancreas. Blood Cx (05/30/18): No GTD x 2 Urine Cx (05/30/18): No growth ID center consultant, Dr. Annabelle Calvo 1gm Q12H [facility] (start 05/30/18, Day 5) - D/C Vancomycin 1gm IV Q12H (Start 05/31; Received 3 days) GI center consultant, Dr. Gomez - Pt for lap kleber - signed off knowledge management consultant, Dr. Dorsey - Awaiting recs. Cardio Child Nutrition Manager, Dr. Mendieta - Acceptable risk for urgent cholecystectomy - ECHO showed normal LV function. Severe TR Morphine 2mg IV Q4H PRN severe pain Zofran 4mg IVP PRN N/V DORIS Cr 2.5 on AM labs; previous baseline 1.6 Likely due to ATN from sepsis vs prerenal from volume loss per Dr Post Hold Losartan Pleural effusion CXR 06/03/18: elevated right hemidiaphragm, possible small right pleural effusion. Consider possibily of subpulmonic pleural effusion CXR (06/02/18): Moderate right pleural effusion, trace left pleural effusion. Interval right basal compressive atelectasis. Cardiomegaly. Increased pulm venous congestion Diabetes HgbA1c is 8.6 ISS HTN (poorly controlled) Hold Losartan Start Amlodipine 10mg Start Coreg 6.25mg PO BID PPX Will consider restarting VTE prophylaxis if no plan for procedure GI: not indicated at this time All orders and management per attending, Dr. Post
--- NOTE | 2018-06-04 19:24 | CP.PCM.PN ---
<Jerry Rodriguez - Last Filed: 06/04/18 19:18> Subjective - Date & Time of Evaluation Date of Evaluation: 06/04/18 Time of Evaluation: 13:35 - Subjective Subjective: Surgery Progress Note- Dr. Dorsey Patient seen and examined. Abdominal pain improved. NPO this AM for Cholecystostomy tube. No new complaints Objective - Vital Signs/Intake and Output Vital Signs (last 24 hours): Temp Pulse Resp BP Pulse Ox 98.6 F 60 20 126/87 94 L 06/04/18 16:00 06/04/18 16:00 06/04/18 16:00 06/04/18 16:00 06/04/18 16:00 Intake and Output: 06/04/18 06/05/18 18:59 06:59 Intake Total 50 Output Total 300 Balance -250 - Medications Medications: Current Medications Amlodipine Besylate (Norvasc) 10 mg PO DAILY [facility] Last Admin: 06/04/18 10:27 Dose: 10 mg Carvedilol (Coreg) 6.25 mg PO BID [facility] Last Admin: 06/04/18 17:13 Dose: 6.25 mg Dextrose (Dextrose 50% Inj) 0 ml IV STAT PRN; Protocol PRN Reason: Hypoglycemia Protocol Dextrose (Glutose 15) 0 gm PO ONCE PRN; Protocol PRN Reason: Hypoglycemia Protocol Enoxaparin Sodium (Lovenox) 30 mg SC DAILY [facility] Last Admin: 06/04/18 10:15 Dose: Not Given Glucagon (Glucagen Diagnostic Kit) 0 mg IM STAT PRN; Protocol PRN Reason: Hypoglycemia Protocol Meropenem 1 gm/ Sodium (Chloride) 100 mls @ 100 mls/hr IVPB Q12H [facility]; Protocol Last Admin: 06/04/18 14:08 Dose: 100 mls/hr Insulin Human Regular (Novolin R) 0 unit SC ACHS [facility]; Protocol Last Admin: 06/04/18 16:53 Dose: Not Given Losartan Potassium (Cozaar) 12.5 mg PO DAILY [facility] Last Admin: 06/02/18 09:26 Dose: 12.5 mg Morphine Sulfate (Morphine) 2 mg IVP Q4 PRN PRN Reason: Pain, severe (8-10) Last Admin: 06/04/18 17:21 Dose: 2 mg Ondansetron HCl (Zofran Inj) 4 mg IVP Q4H PRN PRN Reason: Nausea/Vomiting Last Admin: 05/31/18 12:44 Dose: 4 mg - Labs Labs: 06/04/18 06:44 06/04/18 06:44 PT 13.1 SECONDS (9.7-12.2) H 06/04/18 06:44 INR 1.2 06/04/18 06:44 APTT 33 SECONDS (21-34) 06/04/18 06:44 - Constitutional Appears: Non-toxic, No Acute Distress - Head Exam Head Exam: ATRAUMATIC - Eye Exam Eye Exam: EOMI. absent: Scleral icterus - ENT Exam ENT Exam: Mucous Membranes Moist - Respiratory Exam Respiratory Exam: NORMAL BREATHING PATTERN. absent: Accessory Muscle Use, Respiratory Distress - Cardiovascular Exam Cardiovascular Exam: REGULAR RHYTHM. absent: Bradycardia, Tachycardia - GI/Abdominal Exam GI & Abdominal Exam: Soft, Tenderness (improved tenderness in RUQ). absent: Distended, Firm, Guarding - Extremities Exam Extremities Exam: absent: Calf Tenderness - Neurological Exam Neurological Exam: Alert, Awake, Oriented x3 - Skin Skin Exam: Intact, Warm Assessment and Plan - Assessment and Plan (Free Text) Assessment: 67F w/ Acute Cholecystitis Plan: - recommend Cholecystostomy tube - pain control PRN - cleared for heart healthy diet post cholecystostomy tube - no acute surgical intervention at this time - d/w Dr. Dorsey surgical attending [facility] PGY2 <Anatoly Dorsey - Last Filed: 06/14/18 18:28> Objective - Vital Signs/Intake and Output Vital Signs (last 24 hours): Temp Pulse Resp BP Pulse Ox 97.5 F L 59 L 20 139/61 96 06/14/18 08:20 06/14/18 08:20 06/14/18 08:20 06/14/18 08:20 06/14/18 08:20 Intake and Output: 06/14/18 06/14/18 06:59 18:59 Intake Total 1500 300 Output Total 50 Balance 1450 300 - Medications Medications: Current Medications Amlodipine Besylate (Norvasc) 10 mg PO DAILY [facility] Last Admin: 06/14/18 09:29 Dose: 10 mg Carvedilol (Coreg) 6.25 mg PO BID [facility] Last Admin: 06/14/18 17:31 Dose: 6.25 mg Dextrose (Dextrose 50% Inj) 0 ml IV STAT PRN; Protocol PRN Reason: Hypoglycemia Protocol Dextrose (Glutose 15) 0 gm PO ONCE PRN; Protocol PRN Reason: Hypoglycemia Protocol Epoetin Kody (Procrit) 4,000 unit SC MWF [facility] Stop: 06/19/18 09:01 Ferrous Gluconate (Fergon) 324 mg PO TID [facility] Last Admin: 06/14/18 17:31 Dose: 324 mg Glucagon (Glucagen Diagnostic Kit) 0 mg IM STAT PRN; Protocol PRN Reason: Hypoglycemia Protocol Heparin Sodium (Porcine) (Heparin) 5,000 units SC Q8 [facility] Last Admin: 06/14/18 13:18 Dose: 5,000 units Metronidazole (Flagyl) 500 mg in 100 mls @ 100 mls/hr IVPB Q8H [facility]; Protocol Last Admin: 06/14/18 13:20 Dose: 100 mls/hr Linezolid (Zyvox 600mg/300ml D5w) 600 mg in 300 mls @ 200 mls/hr IVPB Q12H [facility]; Protocol Last Admin: 06/14/18 16:16 Dose: 200 mls/hr Insulin Human Regular (Novolin R) 0 unit SC ACHS [facility]; Protocol Last Admin: 06/14/18 16:11 Dose: Not Given Losartan Potassium (Cozaar) 25 mg PO DAILY [facility] Last Admin: 06/14/18 09:30 Dose: 25 mg Ondansetron HCl (Zofran Inj) 4 mg IVP Q4H PRN PRN Reason: Nausea/Vomiting Last Admin: 05/31/18 12:44 Dose: 4 mg Saccharomyces Boulardii (Florastor) 250 mg PO BID [facility] Last Admin: 06/14/18 17:31 Dose: 250 mg Vancomycin HCl (Vancocin 250mg Capsule) 250 mg PO QID [facility] Last Admin: 06/14/18 17:34 Dose: 250 mg Vitamin B Complex/Vit C/Folic Acid (Nephro-Thaddeus) 1 tab PO 0800 [facility] - Labs Labs: 06/14/18 07:50 06/14/18 07:50 PT 13.1 SECONDS (9.7-12.2) H 06/04/18 06:44 INR 1.2 06/04/18 06:44 APTT 33 SECONDS (21-34) 04/11/19 06:44 Attending/Attestation - Attestation I have personally seen and examined this patient.: Yes I have fully participated in the care of the patient.: Yes I have reviewed all pertinent clinical information, including history, physical exam and plan: Yes Notes (Text): Pt was seen and examined at bedside Agree with above note and assessment Pt is improving clinically Labs reviewed Cholecystostomy tube today NPO, IVF IV antibiotics c.w current mx Plan d.w pt and primary team
[2018-06-05] MEDS: Meropenem 1 GM in Sodium Chloride 0.9% 100 ML IVPB SCH ×2 (01:43→13:46)
[2018-06-05 07:28] LABS: CALCIUM 8.4 mg/dl (8.6-10.4)
[2018-06-05] MEDS: (Novolin R) Insulin Human Regular 100 units/ml vial SC SCH ×4 (08:47→21:43)
[2018-06-05] MEDS: Enoxaparin 30 mg Syringe SC SCH (10:08)
[2018-06-05] MEDS ORDERED: Sodium Chloride 0.9% 1,000 ML IV SCH (10:15)
[2018-06-05 11:32] LABS: BASO # 0.1 K/uL (0.0-0.2); BASO % 0.7 % (0.0-2.0); EOS # 0.8 K/uL (0.0-0.7); EOS % 5.1 % (0.0-4.0); HEMOGLOBIN 9.4 g/dL (11.0-16.0); LYMPH # 1.9 K/uL (1.0-4.3); MEAN CELL VOLUME 80.6 fL (81.0-99.0); MEAN CORPUSCULAR HEMOGLOBIN 26.3 pg (27.0-31.0); MEAN CORPUSCULAR HGB CONC 32.6 g/dL (33.0-37.0); MEAN PLATELET VOLUME 9.2 fL (7.2-11.7); MONO # 0.9 K/uL (0.0-0.8); MONO % 5.4 % (0.0-10.0); NEUT # 12.3 K/uL (1.8-7.0); NEUT % 76.8 % (50.0-75.0); RBC 3.59 Mil/uL (3.80-5.20); RED CELL DISTRIBUTION WIDTH 15.8 % (11.5-14.5); WHITE BLOOD COUNT 16.1 K/uL (4.8-10.8)
--- NOTE | 2018-06-05 11:40 | CP.PCM.PN ---
Subjective - Date & Time of Evaluation Date of Evaluation: 06/05/18 Time of Evaluation: 13:26 - Subjective Subjective: PGY3 progress note for Dr. Deepak Post Pt seen and examined at bedside. Daughter at bedside. Cholecystostomy tube in place draining black bile. patient is awake and alert today. Complaining of mild RUQ pain at site of kleber tube. Denies having N/v/D/C, F/c, CP, SOB. Patient is tolerating diet. Objective - Vital Signs/Intake and Output Vital Signs (last 24 hours): Temp Pulse Resp BP Pulse Ox 98.5 F 64 20 138/64 93 L 06/05/18 08:34 06/05/18 08:34 06/05/18 08:53 06/05/18 08:34 06/05/18 08:34 Intake and Output: 06/05/18 06/05/18 06:59 18:59 Intake Total 180 Output Total 290 Balance -110 - Medications Medications: Current Medications Amlodipine Besylate (Norvasc) 10 mg PO DAILY [facility] Last Admin: 06/05/18 10:08 Dose: 10 mg Carvedilol (Coreg) 6.25 mg PO BID [facility] Last Admin: 06/05/18 10:08 Dose: 6.25 mg Dextrose (Dextrose 50% Inj) 0 ml IV STAT PRN; Protocol PRN Reason: Hypoglycemia Protocol Dextrose (Glutose 15) 0 gm PO ONCE PRN; Protocol PRN Reason: Hypoglycemia Protocol Enoxaparin Sodium (Lovenox) 30 mg SC DAILY [facility] Last Admin: 06/05/18 10:08 Dose: 30 mg Glucagon (Glucagen Diagnostic Kit) 0 mg IM STAT PRN; Protocol PRN Reason: Hypoglycemia Protocol Meropenem 1 gm/ Sodium (Chloride) 100 mls @ 100 mls/hr IVPB Q12H [facility]; Protocol Last Admin: 06/05/18 01:43 Dose: 100 mls/hr Sodium Chloride (Sodium Chloride 0.9%) 1,000 mls @ 75 mls/hr IV .[id number] [facility] Stop: 06/05/18 23:34 Last Admin: 06/05/18 10:17 Dose: 75 mls/hr Insulin Human Regular (Novolin R) 0 unit SC ACHS [facility]; Protocol Last Admin: 06/05/18 08:47 Dose: 4 units Losartan Potassium (Cozaar) 12.5 mg PO DAILY [facility] Last Admin: 06/02/18 09:26 Dose: 12.5 mg Morphine Sulfate (Morphine) 2 mg IVP Q4 PRN PRN Reason: Pain, severe (8-10) Last Admin: 06/05/18 02:15 Dose: 2 mg Ondansetron HCl (Zofran Inj) 4 mg IVP Q4H PRN PRN Reason: Nausea/Vomiting Last Admin: 05/31/18 12:44 Dose: 4 mg - Labs Labs: 06/05/18 11:21 06/05/18 07:10 PT 13.1 SECONDS (9.7-12.2) H 06/04/18 06:44 INR 1.2 06/04/18 06:44 APTT 33 SECONDS (21-34) 06/04/18 06:44 - Constitutional Appears: Non-toxic, No Acute Distress - Head Exam Head Exam: ATRAUMATIC, NORMOCEPHALIC - ENT Exam ENT Exam: Mucous Membranes Moist - Respiratory Exam Respiratory Exam: Clear to Ausculation Bilateral. absent: Rales, Rhonchi, Wheezes - Cardiovascular Exam Cardiovascular Exam: REGULAR RHYTHM, +S1, +S2 - Extremities Exam Extremities Exam: absent: Pedal Edema, Tenderness - Neurological Exam Neurological Exam: Alert, Awake, Oriented x3 - Psychiatric Exam Psychiatric exam: Normal Affect, Normal Mood - Skin Skin Exam: Dry, Intact, Normal Color, Warm Assessment and Plan - Assessment and Plan (Free Text) Assessment: Cholecystitis s/p cholecystostomy tube placement POD #1 - Cholecystostomy tube drained about 20 cc on placement - Bile fluid sent for culture, with results pending - Will trend LFTs in am Blood Cx (05/30/18): No GTD x 2 Urine Cx (05/30/18): No growth ID distributed energy systems consultant, Dr. Alanis Merrem 1gm Q12H [facility] (start 05/30/18, Day 5) - D/C Vancomycin 1gm IV Q12H (Start 05/31; Received 3 days) GI distributed energy systems consultant, Dr. Gomez - Pt for lap kleber - signed off cycle consultant, Dr. Dorsey Morphine 2mg IV Q4H PRN severe pain Zofran 4mg IVP PRN N/V DORIS Cr 2.4 on AM labs; previous baseline 1.6 Likely due to ATN from sepsis vs prerenal from volume loss per Dr Post Hold Losartan Nephro, Dr. Choi is consulted Pleural effusion CXR 06/03/18: elevated right hemidiaphragm, possible small right pleural effusion. Consider possibily of subpulmonic pleural effusion CXR (06/02/18): Moderate right pleural effusion, trace left pleural effusion. Interval right basal compressive atelectasis. Cardiomegaly. Increased pulm venous congestion Pro BNP elevated on admission. will repeat value Diabetes HgbA1c is 8.6 ISS HTN (poorly controlled) Hold Losartan Start Amlodipine 10mg Start Coreg 6.25mg PO BID PPX Will consider restarting VTE prophylaxis if no plan for procedure GI: not indicated at this time Dispo: Awaiting bile fluid culture result to see if home Abx needed. Patient's daughter insistent on taking patient home with physical therapy. All orders and management per attending, Dr. Post
[2018-06-05 11:45] LABS: CALCIUM 8.3 mg/dl (8.6-10.4)
--- NOTE | 2018-06-05 12:22 | CP.PCM.PN ---
Subjective - Date & Time of Evaluation Date of Evaluation: 06/05/18 Time of Evaluation: 12:21 - Subjective Subjective: Nephrology Consultation Note: Assessment: stable acute cholecystitis Acute Kidney Injury (N17.9) likely hemodynamic due to sepsis/ATN, BP fluctuations, limited oral intake Diabetic chronic Kidney Disease (E11.22) Hypertensive Chronic Kidney Disease (I12.9) with HTN urgency Chronic Kidney Disease (N18.3) Stage 3 with ? mg proteinuria (R80.9) likely due to DM/HTN Anemia (D64.9), severe pHTN with severe TR. Plan No acute need for renal replacement therapy at this time. anticipate spontaneous renal recovery over next few days. IVF will likely help with renal function as BUN rising. will order NS 1L pt had cholecystotomy tube placement today by IR 06/04/18. gall bladder surgery was deferred. consider to evaluate Rt pleural effusion further and may be drain her to help with respi status Hypertension control with meds as ordered. Maintain hemodynamics stable. Avoid hypotension. hold ACEI/ARB due to recent DORIS Monitor Input/Output, daily weights and renal function with basic metabolic panel cardiology, ID surgery following supplement lytes as needed check UA, urine Na/cr Dose meds/antibiotics for reduced GFR. Avoid fleets enema/magnesium based laxatives. Avoid nephrotoxins/NSAIDs/ iodinated contrast (unless needed emerg ently) Glycemic control Further work up/management as per primary team Thanks for allowing me to participate in care of your patient. Will follow patient with you. Please call if any Qs. had d/w team Dr Ruiz Choi Office: [phone] Chief Complaint; cholecytitis Reason for consult: Acute Kidney Injury HPI: Pt is a 67 F with hx of diabetes Mellitus ( years), hypertension (years) CVA presented with complaints of abdomen pain and found to have Acute kleber cysitis. also with severe pHTN with severe TR. Denies OTC/herbal meds or NSAIDs No recent iodinated contrast exposure. No obvious episodes of low BP but noted fluctuations. episode of bp in 200+ noted pt not aware about kidney disease in past. baseline cr 1.0-1.4 likely reporesent underlying CKD 3 ROS: Cardiovascular: No chest pain. Pulmonary: denies shortness of breath Gastrointestinal: denies abdominal pain No nausea. No vomiting. Genitourinary: No pain while urinating. Denies blood in urine. All other negative except as mentioned in HPI Physical Examination: General Appearance: Comfortable, in no acute respiratory distress, co-operative . better appearing. on high flow o2 Vitals reviewed and noted as below Head; Atraumatic, normocephalic ENT: no ulcers no thrush. Tongue is midline. Oropharynx: no rash or ulcers. EYES: Rt eye unable to see. Eye muscles and extraocular movement intact. Sclera is anicteric. Neck; supple no lymphadenopathy, no thyromegaly or bruit Lungs: Normal respiratory rate/effort. Breath sounds reduced at Rt base with crackle and rale Heart: Normal rate. s1s2 normal. No rub or gallop. Extremities: no edema. No varicose veins Neurological: Patient is alert, awake and oriented. speech impaired due to stroke hx Skin: Warm and dry. Normal turgor. No rash. Palpitation: Normal elasticity for age Abdomen: Abdomen is soft/distended. Bowel sounds +. There is no abdominal tenderness, no guarding/rigidity no organomegaly Psych: lack insight and has normal affect/mood MSK: no joint tenderness or swelling. Digits and nails normal, no deformity : kidney or bladder not palpable Labs/imaging reviewed. Past medical history, past surgical history, family history, social history, allergy reviewed and noted as below Family hx: no hx of CKD. Rest non-contributory UA 2+ protein and 1+ blood renal imaging okay on sono but MRCP reported renal atrophy Objective - Vital Signs/Intake and Output Vital Signs (last 24 hours): Temp Pulse Resp BP Pulse Ox 98.5 F 64 20 138/64 93 L 06/05/18 08:34 06/05/18 08:34 06/05/18 08:53 06/05/18 08:34 06/05/18 08:34 Intake and Output: 06/05/18 06/05/18 06:59 18:59 Intake Total 180 Output Total 290 Balance -110 - Medications Medications: Current Medications Amlodipine Besylate (Norvasc) 10 mg PO DAILY [facility] Last Admin: 06/05/18 10:08 Dose: 10 mg Carvedilol (Coreg) 6.25 mg PO BID [facility] Last Admin: 06/05/18 10:08 Dose: 6.25 mg Dextrose (Dextrose 50% Inj) 0 ml IV STAT PRN; Protocol PRN Reason: Hypoglycemia Protocol Dextrose (Glutose 15) 0 gm PO ONCE PRN; Protocol PRN Reason: Hypoglycemia Protocol Enoxaparin Sodium (Lovenox) 30 mg SC DAILY [facility] Last Admin: 06/05/18 10:08 Dose: 30 mg Glucagon (Glucagen Diagnostic Kit) 0 mg IM STAT PRN; Protocol PRN Reason: Hypoglycemia Protocol Meropenem 1 gm/ Sodium (Chloride) 100 mls @ 100 mls/hr IVPB Q12H [facility]; Protocol Last Admin: 06/05/18 01:43 Dose: 100 mls/hr Sodium Chloride (Sodium Chloride 0.9%) 1,000 mls @ 75 mls/hr IV .[id number] [facility] Stop: 06/05/18 23:34 Last Admin: 06/05/18 10:17 Dose: 75 mls/hr Insulin Human Regular (Novolin R) 0 unit SC ACHS [facility]; Protocol Last Admin: 06/05/18 12:19 Dose: 4 units Losartan Potassium (Cozaar) 12.5 mg PO DAILY [facility] Last Admin: 06/02/18 09:26 Dose: 12.5 mg Morphine Sulfate (Morphine) 2 mg IVP Q4 PRN PRN Reason: Pain, severe (8-10) Last Admin: 06/05/18 02:15 Dose: 2 mg Ondansetron HCl (Zofran Inj) 4 mg IVP Q4H PRN PRN Reason: Nausea/Vomiting Last Admin: 05/31/18 12:44 Dose: 4 mg - Labs Labs: 06/05/18 11:21 06/05/18 11:21 PT 13.1 SECONDS (9.7-12.2) H 06/04/18 06:44 INR 1.2 06/04/18 06:44 APTT 33 SECONDS (21-34) 06/04/18 06:44
--- NOTE | 2018-06-05 13:25 | RAD ---
Date of service: 06/05/2018 HISTORY: pleural effusion COMPARISON: 06/03/2018 FINDINGS: LUNGS: There is low lung volume the right there is interval mild improved aeration in the right lower lobe with persistent discoid atelectasis in the midlung airspace disease in the lower lobe. The left lung is well inflated and clear. PLEURA: There is a small right pleural effusion no left pleural effusion. No pneumothorax. CARDIOVASCULAR: Persistent mild cardiomegaly. There are aortic atherosclerotic calcifications present. OSSEOUS STRUCTURES: Within normal limits for the patient's age. VISUALIZED UPPER ABDOMEN: Normal. OTHER FINDINGS: There is chronic elevation of the right hemidiaphragm. IMPRESSION: Interval mild improved aeration in the right out lower lobe with persistent atelectasis/pneumonia. Small right pleural effusion.
--- NOTE | 2018-06-05 14:53 | CP.PCM.CON ---
History of Present Illness - History of Present Illness History of Present Illness: Pulm Consult Note for Dr. Duenas's service Reason for Consult: R pleural effusion 67 yo female w/ PMH that includes DM, HTN, CVA present to [facility] for abdominal pain. Associated episodes of nausea/vomiting prior to admission. Found to have acute cholecystitis on imaging. During admission patient was not stable enough to undergo procedure. IR was consulted for cholecystostomy tubes for drainage and continued on IV abx. Cr remains elevated from baseline. During interview today patient complains of pain in ruq probably from insertion site. 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) Other/Comment: h/o CVA 2003 - HEENT Hx HEENT Problems: Yes Other/Comment: RT EYE PROSTHESIS - ENDOCRINE/METABOLIC Hx Endocrine Disorders: Yes Hx Diabetes Mellitus Type 2: Yes - HEMATOLOGICAL/ONCOLOGICAL Hx Human Immunodeficiency Virus (HIV): No - MUSCULOSKELETAL/RHEUMATOLOGICAL Hx Falls: No - GASTROINTESTINAL Hx Constipation: Yes - PSYCHIATRIC Hx Substance Use: No - SURGICAL HISTORY Hx Appendectomy: Yes - ANESTHESIA Hx Anesthesia: Yes Hx Anesthesia Reactions: No Hx Malignant Hyperthermia: No Meds Allergies/Adverse Reactions: Allergies Allergy/AdvReac Type Severity Reaction Status Date / Time No Known Allergies Allergy Verified 05/30/18 11:27 - Medications Medications: Current Medications Amlodipine Besylate (Norvasc) 10 mg PO DAILY [facility] Last Admin: 06/05/18 10:08 Dose: 10 mg Carvedilol (Coreg) 6.25 mg PO BID [facility] Last Admin: 06/05/18 10:08 Dose: 6.25 mg Dextrose (Dextrose 50% Inj) 0 ml IV STAT PRN; Protocol PRN Reason: Hypoglycemia Protocol Dextrose (Glutose 15) 0 gm PO ONCE PRN; Protocol PRN Reason: Hypoglycemia Protocol Enoxaparin Sodium (Lovenox) 30 mg SC DAILY [facility] Last Admin: 06/05/18 10:08 Dose: 30 mg Glucagon (Glucagen Diagnostic Kit) 0 mg IM STAT PRN; Protocol PRN Reason: Hypoglycemia Protocol Meropenem 1 gm/ Sodium (Chloride) 100 mls @ 100 mls/hr IVPB Q12H [facility]; Protocol Last Admin: 06/05/18 13:46 Dose: 100 mls/hr Sodium Chloride (Sodium Chloride 0.9%) 1,000 mls @ 75 mls/hr IV .[id number] [facility] Stop: 06/05/18 23:34 Last Admin: 06/05/18 10:17 Dose: 75 mls/hr Insulin Human Regular (Novolin R) 0 unit SC ACHS [facility]; Protocol Last Admin: 06/05/18 12:19 Dose: 4 units Losartan Potassium (Cozaar) 12.5 mg PO DAILY [facility] Last Admin: 06/02/18 09:26 Dose: 12.5 mg Morphine Sulfate (Morphine) 2 mg IVP Q4 PRN PRN Reason: Pain, severe (8-10) Last Admin: 06/05/18 02:15 Dose: 2 mg Ondansetron HCl (Zofran Inj) 4 mg IVP Q4H PRN PRN Reason: Nausea/Vomiting Last Admin: 05/31/18 12:44 Dose: 4 mg Results - Vital Signs Recent Vital Signs: Last Vital Signs Temp 98.5 F 06/05/18 08:34 Pulse 64 06/05/18 08:34 Resp 20 06/05/18 13:50 BP 138/64 06/05/18 08:34 Pulse Ox 93 L 06/05/18 08:34 - Labs Result Diagrams: 06/05/18 11:21 06/05/18 11:21 Labs: Laboratory Results - last 24 hr 06/04/18 06/04/18 06/05/18 16:45 21:41 02:54 WBC RBC Hgb Hct MCV MCH MCHC RDW Plt Count MPV Neut % (Auto) Lymph % (Auto) Larue % (Auto) Eos % (Auto) Baso % (Auto) Neut # (Auto) Lymph # (Auto) Larue # (Auto) Eos # (Auto) Baso # (Auto) Sodium Potassium Chloride Carbon Dioxide Anion Gap BUN Creatinine Est GFR ( Amer) Est GFR (Non-Af Amer) POC Glucose (mg/dL) 276 H 353 H 194 H Random Glucose Calcium NT-Pro-B Natriuret Pep 06/05/18 06/05/18 06/05/18 07:10 07:23 11:21 WBC 16.1 H RBC 3.59 L Hgb 9.4 L Hct 29.0 L MCV 80.6 L MCH 26.3 L MCHC 32.6 L RDW 15.8 H Plt Count 425 H MPV 9.2 Neut % (Auto) 76.8 H Lymph % (Auto) 12.0 L Larue % (Auto) 5.4 Eos % (Auto) 5.1 H Baso % (Auto) 0.7 Neut # (Auto) 12.3 H Lymph # (Auto) 1.9 Larue # (Auto) 0.9 H Eos # (Auto) 0.8 H Baso # (Auto) 0.1 Sodium 142 Potassium 3.8 Chloride 110 H Carbon Dioxide 27 Anion Gap 9 L BUN 60 H Creatinine 2.4 H Est GFR ( Amer) 24 Est GFR (Non-Af Amer) 20 POC Glucose (mg/dL) 208 H Random Glucose 178 H Calcium 8.4 L NT-Pro-B Natriuret Pep 06/05/18 06/05/18 11:21 12:10 WBC RBC Hgb Hct MCV MCH MCHC RDW Plt Count MPV Neut % (Auto) Lymph % (Auto) Larue % (Auto) Eos % (Auto) Baso % (Auto) Neut # (Auto) Lymph # (Auto) Larue # (Auto) Eos # (Auto) Baso # (Auto) Sodium 137 Potassium 3.7 Chloride 109 H Carbon Dioxide 26 Anion Gap 6 L BUN 58 H Creatinine 2.5 H Est GFR ( Amer) 23 Est GFR (Non-Af Amer) 19 POC Glucose (mg/dL) 208 H Random Glucose 217 H D Calcium 8.3 L NT-Pro-B Natriuret Pep 2630 H
--- NOTE | 2018-06-05 16:37 | CT ---
Date of service: 06/05/2018 PROCEDURE: CT Chest without contrast HISTORY: Pleural effusion COMPARISON: Correlation made with chest radiograph 06/05/2018 at 10:17 a.m.. Correlation also made with CT scan of the abdomen pelvis 05/30/2018 which imaged both lung bases. TECHNIQUE: Contiguous axial images were obtained through the chest without intravenous contrast enhancement. Sagittal and coronal reconstructions were performed. Radiation dose: Total exam DLP = 699.76 mGy-cm. This CT exam was performed using one or more of the following dose reduction techniques: Automated exposure control, adjustment of the mA and/or kV according to patient size, and/or use of iterative reconstruction technique. FINDINGS: LUNGS: Small to medium size right-sided effusion associated with mild atelectasis in the right lower and to a lesser degree right upper lobes. Mild subsegmental atelectasis right middle lobe. Trace left-sided effusion with mild left lower lobe atelectasis. There is also some minor atelectasis in the left medial upper lung field as well. MEDIASTINUM: Heart is enlarged. The ascending thoracic aorta measures approximately 3.2 cm and descending thoracic aorta measures approximately 2.3 cm. Mild aortic atherosclerotic calcification. The pulmonary trunk measures approximately 3.2 cm. Trachea midline and patent with no large central endoluminal lesions. Few small nonspecific mediastinal lymph nodes are present. Evaluation for hilar adenopathy is slightly limited due to the lack of circulating intravenous contrast material. PLEURA: As above. No evidence of pneumothorax BONES: Mild multilevel degenerative spondylosis of the thoracic spine. UPPER ABDOMEN: There has been interval placement of a pigtail drainage catheter in the right lateral abdomen with the coiled pigtail component within the superolateral margin of the gallbladder fossa. It is unclear whether the pigtail catheter lies within the lumen of the gallbladder or extrinsic to the gallbladder wall. The gallbladder is less distended compared to the prior study. Infiltration changes within the adjacent mesentery. Layering gallbladder calculi felt to be present. Also again noted are marked the atrophic changes of the pancreas OTHER FINDINGS: None. IMPRESSION: Small to medium size right-sided effusion associated with mild atelectasis in the right lower and to a lesser degree right upper lobes. Mild subsegmental atelectasis right middle lobe. Trace left-sided effusion with mild left lower lobe atelectasis. There is also some minor atelectasis in the left medial upper lung field as well. In situ drainage catheter right lateral abdomen extending into the lateral margin of the gallbladder fossa. It is unclear whether the pigtail component resides extrinsic to the gallbladder wall or is within the lumen of the gallbladder. Probable layering small gallbladder calculi. There is small amount of perihepatic ascites.
--- NOTE | 2018-06-05 17:22 | CP.PCM.PN ---
<Ivan Baires - Last Filed: 06/05/18 17:28> Subjective - Date & Time of Evaluation Date of Evaluation: 06/05/18 Time of Evaluation: 07:00 - Subjective Subjective: General Surgery Progress Note for Dr. Dorsey Patient seen and examined. Abdominal pain is still present but better. Patient remains on HFNC. She is s/p cholecystotomy tube. Patient states she is not hungry. Denies flatus and BM. Objective - Vital Signs/Intake and Output Vital Signs (last 24 hours): Temp Pulse Resp BP Pulse Ox 98.1 F 64 20 132/54 L 93 L 06/05/18 15:00 06/05/18 15:00 06/05/18 15:00 06/05/18 15:00 06/05/18 08:34 Intake and Output: 06/05/18 06/05/18 06:59 18:59 Intake Total 180 975 Output Total 290 150 Balance -110 825 - Medications Medications: Current Medications Amlodipine Besylate (Norvasc) 10 mg PO DAILY [facility] Last Admin: 06/05/18 10:08 Dose: 10 mg Carvedilol (Coreg) 6.25 mg PO BID [facility] Last Admin: 06/05/18 10:08 Dose: 6.25 mg Dextrose (Dextrose 50% Inj) 0 ml IV STAT PRN; Protocol PRN Reason: Hypoglycemia Protocol Dextrose (Glutose 15) 0 gm PO ONCE PRN; Protocol PRN Reason: Hypoglycemia Protocol Enoxaparin Sodium (Lovenox) 30 mg SC DAILY [facility] Last Admin: 06/05/18 10:08 Dose: 30 mg Glucagon (Glucagen Diagnostic Kit) 0 mg IM STAT PRN; Protocol PRN Reason: Hypoglycemia Protocol Meropenem 1 gm/ Sodium (Chloride) 100 mls @ 100 mls/hr IVPB Q12H [facility]; Protocol Last Admin: 06/05/18 13:46 Dose: 100 mls/hr Sodium Chloride (Sodium Chloride 0.9%) 1,000 mls @ 75 mls/hr IV .[id number] [facility] Stop: 06/05/18 23:34 Last Admin: 06/05/18 10:17 Dose: 75 mls/hr Insulin Human Regular (Novolin R) 0 unit SC ACHS [facility]; Protocol Last Admin: 06/05/18 12:19 Dose: 4 units Losartan Potassium (Cozaar) 12.5 mg PO DAILY [facility] Last Admin: 06/02/18 09:26 Dose: 12.5 mg Morphine Sulfate (Morphine) 2 mg IVP Q4 PRN PRN Reason: Pain, severe (8-10) Last Admin: 06/05/18 02:15 Dose: 2 mg Ondansetron HCl (Zofran Inj) 4 mg IVP Q4H PRN PRN Reason: Nausea/Vomiting Last Admin: 05/31/18 12:44 Dose: 4 mg - Labs Labs: 06/05/18 11:21 06/05/18 11:21 PT 13.1 SECONDS (9.7-12.2) H 06/04/18 06:44 INR 1.2 06/04/18 06:44 APTT 33 SECONDS (21-34) 06/04/18 06:44 - Additional Findings Additional findings: Constitutional Appears: Non-toxic, No Acute Distress - Head Exam Head Exam: ATRAUMATIC - Eye Exam Eye Exam: EOMI. absent: Scleral icterus - ENT Exam ENT Exam: Mucous Membranes Moist - Respiratory Exam Respiratory Exam: NORMAL BREATHING PATTERN. absent: Accessory Muscle Use, Respiratory Distress - Cardiovascular Exam Cardiovascular Exam: REGULAR RHYTHM. absent: Bradycardia, Tachycardia - GI/Abdominal Exam GI & Abdominal Exam: Soft, Tenderness (improved tenderness in RUQ). absent: Distended, Firm, Guarding - Extremities Exam Extremities Exam: absent: Calf Tenderness - Neurological Exam Neurological Exam: Alert, Awake - Skin Skin Exam: Intact, Warm Assessment and Plan - Assessment and Plan (Free Text) Assessment: 67F w/ Acute Cholecystitis s/p IR cholecystotomy tube Plan: -IV abx -Pain control -F/u Nephrology recommendations -recommend Pulm consult -medical management as per primary - d/w Dr. Sunita Baires PGY2 PGY2 <Anatoly Dorsey - Last Filed: 06/14/18 18:29> Objective - Vital Signs/Intake and Output Vital Signs (last 24 hours): Temp Pulse Resp BP Pulse Ox 97.5 F L 59 L 20 139/61 96 06/14/18 08:20 06/14/18 08:20 06/14/18 08:20 06/14/18 08:20 06/14/18 08:20 Intake and Output: 06/14/18 06/14/18 06:59 18:59 Intake Total 1500 300 Output Total 50 Balance 1450 300 - Medications Medications: Current Medications Amlodipine Besylate (Norvasc) 10 mg PO DAILY [facility] Last Admin: 06/14/18 09:29 Dose: 10 mg Carvedilol (Coreg) 6.25 mg PO BID [facility] Last Admin: 06/14/18 17:31 Dose: 6.25 mg Dextrose (Dextrose 50% Inj) 0 ml IV STAT PRN; Protocol PRN Reason: Hypoglycemia Protocol Dextrose (Glutose 15) 0 gm PO ONCE PRN; Protocol PRN Reason: Hypoglycemia Protocol Epoetin Kody (Procrit) 4,000 unit SC MWF [facility] Stop: 06/19/18 09:01 Ferrous Gluconate (Fergon) 324 mg PO TID [facility] Last Admin: 06/14/18 17:31 Dose: 324 mg Glucagon (Glucagen Diagnostic Kit) 0 mg IM STAT PRN; Protocol PRN Reason: Hypoglycemia Protocol Heparin Sodium (Porcine) (Heparin) 5,000 units SC Q8 [facility] Last Admin: 06/14/18 13:18 Dose: 5,000 units Metronidazole (Flagyl) 500 mg in 100 mls @ 100 mls/hr IVPB Q8H [facility]; Protocol Last Admin: 06/14/18 13:20 Dose: 100 mls/hr Linezolid (Zyvox 600mg/300ml D5w) 600 mg in 300 mls @ 200 mls/hr IVPB Q12H [facility]; Protocol Last Admin: 06/14/18 16:16 Dose: 200 mls/hr Insulin Human Regular (Novolin R) 0 unit SC ACHS [facility]; Protocol Last Admin: 06/14/18 16:11 Dose: Not Given Losartan Potassium (Cozaar) 25 mg PO DAILY [facility] Last Admin: 06/14/18 09:30 Dose: 25 mg Ondansetron HCl (Zofran Inj) 4 mg IVP Q4H PRN PRN Reason: Nausea/Vomiting Last Admin: 05/31/18 12:44 Dose: 4 mg Saccharomyces Boulardii (Florastor) 250 mg PO BID [facility] Last Admin: 06/14/18 17:31 Dose: 250 mg Vancomycin HCl (Vancocin 250mg Capsule) 250 mg PO QID [facility] Last Admin: 06/14/18 17:34 Dose: 250 mg Vitamin B Complex/Vit C/Folic Acid (Nephro-Thaddeus) 1 tab PO 0800 [facility] - Labs Labs: 06/14/18 07:50 06/14/18 07:50 PT 13.1 SECONDS (9.7-12.2) H 06/04/18 06:44 INR 1.2 06/04/18 06:44 APTT 33 SECONDS (21-34) 06/04/18 06:44 Attending/Attestation - Attestation I have personally seen and examined this patient.: Yes I have fully participated in the care of the patient.: Yes I have reviewed all pertinent clinical information, including history, physical exam and plan: Yes Notes (Text): Pt was seen and examined at bedside Agree with above note and assessment Pt is improving clinically C/o SOB Labs reviewed c.w current mx Plan d.w pt and primary team
--- NOTE | 2018-06-05 18:56 | CP.PCM.PN ---
Subjective - Date & Time of Evaluation Date of Evaluation: 06/05/18 Time of Evaluation: 08:00 - Subjective Subjective: S/P CHOLY TUBE AFEB ON IV RX Objective - Vital Signs/Intake and Output Vital Signs (last 24 hours): Temp Pulse Resp BP Pulse Ox 98.1 F 64 20 132/54 L 93 L 06/05/18 15:00 06/05/18 15:00 06/05/18 15:00 06/05/18 15:00 06/05/18 08:34 Intake and Output: 06/05/18 06/05/18 06:59 18:59 Intake Total 180 975 Output Total 290 150 Balance -110 825 - Medications Medications: Current Medications Amlodipine Besylate (Norvasc) 10 mg PO DAILY [facility] Last Admin: 06/05/18 10:08 Dose: 10 mg Carvedilol (Coreg) 6.25 mg PO BID [facility] Last Admin: 06/05/18 17:32 Dose: 6.25 mg Dextrose (Dextrose 50% Inj) 0 ml IV STAT PRN; Protocol PRN Reason: Hypoglycemia Protocol Dextrose (Glutose 15) 0 gm PO ONCE PRN; Protocol PRN Reason: Hypoglycemia Protocol Enoxaparin Sodium (Lovenox) 30 mg SC DAILY [facility] Last Admin: 06/05/18 10:08 Dose: 30 mg Glucagon (Glucagen Diagnostic Kit) 0 mg IM STAT PRN; Protocol PRN Reason: Hypoglycemia Protocol Meropenem 1 gm/ Sodium (Chloride) 100 mls @ 100 mls/hr IVPB Q12H [facility]; Protocol Last Admin: 06/05/18 13:46 Dose: 100 mls/hr Sodium Chloride (Sodium Chloride 0.9%) 1,000 mls @ 75 mls/hr IV .[id number] [facility] Stop: 06/05/18 23:34 Last Admin: 06/05/18 10:17 Dose: 75 mls/hr Insulin Human Regular (Novolin R) 0 unit SC ACHS [facility]; Protocol Last Admin: 06/05/18 17:32 Dose: 2 units Losartan Potassium (Cozaar) 12.5 mg PO DAILY [facility] Last Admin: 06/02/18 09:26 Dose: 12.5 mg Morphine Sulfate (Morphine) 2 mg IVP Q4 PRN PRN Reason: Pain, severe (8-10) Last Admin: 06/05/18 02:15 Dose: 2 mg Ondansetron HCl (Zofran Inj) 4 mg IVP Q4H PRN PRN Reason: Nausea/Vomiting Last Admin: 05/31/18 12:44 Dose: 4 mg - Labs Labs: 06/05/18 11:21 06/05/18 11:21 PT 13.1 SECONDS (9.7-12.2) H 06/04/18 06:44 INR 1.2 06/04/18 06:44 APTT 33 SECONDS (21-34) 06/04/18 06:44 - Constitutional Appears: Non-toxic, Confused, Chronically Ill - Head Exam Head Exam: ATRAUMATIC, NORMAL INSPECTION, NORMOCEPHALIC - Eye Exam Eye Exam: EOMI, Normal appearance, PERRL Pupil Exam: NORMAL ACCOMODATION, PERRL - ENT Exam ENT Exam: Mucous Membranes Moist, Normal Exam - Neck Exam Neck Exam: Full ROM, Normal Inspection. absent: Lymphadenopathy - Respiratory Exam Respiratory Exam: Clear to Ausculation Bilateral, NORMAL BREATHING PATTERN - Cardiovascular Exam Cardiovascular Exam: REGULAR RHYTHM, +S1, +S2. absent: Murmur - GI/Abdominal Exam GI & Abdominal Exam: Distended, Soft, Tenderness - Rectal Exam Rectal Exam: Deferred - Exam Exam: NORMAL INSPECTION - Extremities Exam Extremities Exam: Full ROM, Normal Capillary Refill, Normal Inspection. absent: Joint Swelling, Pedal Edema - Back Exam Back Exam: NORMAL INSPECTION - Neurological Exam Neurological Exam: Alert, Awake, CN II-XII Intact, Normal Gait, Oriented x3 - Psychiatric Exam Psychiatric exam: Normal Affect, Normal Mood - Skin Skin Exam: Dry, Intact, Normal Color, Warm Assessment and Plan (1) Abdominal pain Status: Acute (2) Cholecystitis Status: Acute (3) CVA, old, dysarthria Status: Acute (4) Cholangitis Status: Acute (5) Diabetes mellitus Status: Chronic (6) Hyperlipidemia Status: Chronic (7) Hypertension Status: Chronic (8) DORIS (acute kidney injury) Status: Acute - Assessment and Plan (Free Text) Assessment: CONT RX PLANNED
--- NOTE | 2018-06-05 19:39 | CP.PCM.PN ---
Subjective - Date & Time of Evaluation Date of Evaluation: 06/05/18 - Subjective Subjective: patient was seen and examined today no nausea, no vomiting, no diarrhea, no fever, no shortness of breath Objective - Vital Signs/Intake and Output Vital Signs (last 24 hours): Temp Pulse Resp BP Pulse Ox 98.1 F 64 20 132/54 L 93 L 06/05/18 15:00 06/05/18 15:00 06/05/18 15:00 06/05/18 15:00 06/05/18 08:34 Intake and Output: 06/05/18 06/06/18 18:59 06:59 Intake Total 975 Output Total 150 Balance 825 - Medications Medications: Current Medications Amlodipine Besylate (Norvasc) 10 mg PO DAILY [facility] Last Admin: 06/05/18 10:08 Dose: 10 mg Carvedilol (Coreg) 6.25 mg PO BID [facility] Last Admin: 06/05/18 17:32 Dose: 6.25 mg Dextrose (Dextrose 50% Inj) 0 ml IV STAT PRN; Protocol PRN Reason: Hypoglycemia Protocol Dextrose (Glutose 15) 0 gm PO ONCE PRN; Protocol PRN Reason: Hypoglycemia Protocol Enoxaparin Sodium (Lovenox) 30 mg SC DAILY [facility] Last Admin: 06/05/18 10:08 Dose: 30 mg Glucagon (Glucagen Diagnostic Kit) 0 mg IM STAT PRN; Protocol PRN Reason: Hypoglycemia Protocol Meropenem 1 gm/ Sodium (Chloride) 100 mls @ 100 mls/hr IVPB Q12H [facility]; Protocol Last Admin: 06/05/18 13:46 Dose: 100 mls/hr Sodium Chloride (Sodium Chloride 0.9%) 1,000 mls @ 75 mls/hr IV .[id number] [facility] Stop: 06/05/18 23:34 Last Admin: 06/05/18 10:17 Dose: 75 mls/hr Insulin Human Regular (Novolin R) 0 unit SC ACHS [facility]; Protocol Last Admin: 06/05/18 17:32 Dose: 2 units Losartan Potassium (Cozaar) 12.5 mg PO DAILY [facility] Last Admin: 06/02/18 09:26 Dose: 12.5 mg Morphine Sulfate (Morphine) 2 mg IVP Q4 PRN PRN Reason: Pain, severe (8-10) Last Admin: 06/05/18 02:15 Dose: 2 mg Ondansetron HCl (Zofran Inj) 4 mg IVP Q4H PRN PRN Reason: Nausea/Vomiting Last Admin: 05/31/18 12:44 Dose: 4 mg - Labs Labs: 06/05/18 11:21 06/05/18 11:21 PT 13.1 SECONDS (9.7-12.2) H 06/04/18 06:44 INR 1.2 06/04/18 06:44 APTT 33 SECONDS (21-34) 06/04/18 06:44 - Constitutional Appears: Well - Head Exam Head Exam: ATRAUMATIC, NORMAL INSPECTION, NORMOCEPHALIC - Eye Exam Eye Exam: EOMI, Normal appearance, PERRL Pupil Exam: NORMAL ACCOMODATION, PERRL - ENT Exam ENT Exam: Mucous Membranes Moist, Normal Exam - Neck Exam Neck Exam: Full ROM, Normal Inspection. absent: Lymphadenopathy - Respiratory Exam Respiratory Exam: Decreased Breath Sounds - Cardiovascular Exam Cardiovascular Exam: REGULAR RHYTHM, +S1, +S2 - GI/Abdominal Exam GI & Abdominal Exam: Soft, Diminished Bowel Sounds - Rectal Exam Rectal Exam: Deferred - Neurological Exam Neurological Exam: Oriented x3 Assessment and Plan (1) Abdominal pain Status: Acute (2) Cholecystitis Status: Acute (3) Nausea Status: Acute (4) CVA, old, dysarthria Status: Acute (5) Contusion Status: Acute (6) Hyperglycemia Status: Acute (7) Ischemic stroke Status: Acute (8) Slurring of speech Status: Acute (9) Toothache Status: Acute (10) UTI (urinary tract infection) Status: Acute (11) Diabetes mellitus Status: Chronic (12) Hyperlipidemia Status: Chronic (13) Hypertension Status: Chronic - Assessment and Plan (Free Text) Plan: labs reviewed vitals reviewed medications reviewed coreg cozar dextrose 50% inj glucagen diagnostic kit glutose 15 lovenox meropenem morphine norvasc novolin R zofran inj
[2018-06-06] MEDS: Meropenem 1 GM in Sodium Chloride 0.9% 100 ML IVPB SCH ×2 (02:10→13:51)
[2018-06-06 06:44] LABS: BASO # 0.2 K/uL (0.0-0.2); BASO % 1.2 % (0.0-2.0); EOS # 0.8 K/uL (0.0-0.7); EOS % 5.2 % (0.0-4.0); HEMOGLOBIN 9.6 g/dL (11.0-16.0); LYMPH # 2.2 K/uL (1.0-4.3); LYMPH % 14.9 % (20.0-40.0); MEAN CELL VOLUME 80.4 fL (81.0-99.0); MEAN CORPUSCULAR HEMOGLOBIN 25.9 pg (27.0-31.0); MEAN CORPUSCULAR HGB CONC 32.2 g/dL (33.0-37.0); MONO # 0.9 K/uL (0.0-0.8); MONO % 6.3 % (0.0-10.0); NEUT # 10.7 K/uL (1.8-7.0); NEUT % 72.4 % (50.0-75.0); NRBC % 0.1 % (0.0-2.0); PLATELET COUNT 419 K/uL (130-400); RED CELL DISTRIBUTION WIDTH 15.7 % (11.5-14.5); WHITE BLOOD COUNT 14.8 K/uL (4.8-10.8)
[2018-06-06 06:59] LABS: ALB/GLOB RATIO 0.9 (1.0-2.1); ALBUMIN 2.7 g/dL (3.5-5.0)
[2018-06-06] MEDS: (Novolin R) Insulin Human Regular 100 units/ml vial SC SCH ×4 (08:03→21:29)
[2018-06-06] MEDS: Enoxaparin 30 mg Syringe SC SCH (09:17)
[2018-06-06 10:53] LABS: BANDS 8 % (0-2); EOSINOPHIL 4 % (0-4); LYMPHOCYTE 16 % (20-40); METAMYELOCYTE 1 % (0-0); MONOCYTE 2 % (0-10); NEUTROPHIL 69 % (50-75); PLATELET ESTIMATE NORMAL (NORMAL); TOTAL CELLS COUNTED 100
[2018-06-06 10:54] LABS: ANISOCYTOSIS SLIGHT; HYPOCHROMIC SLIGHT
[2018-06-06 10:55] LABS: OVALOCYTES SLIGHT; TEARDROP CELLS SLIGHT
--- NOTE | 2018-06-06 13:22 | CP.PCM.PN ---
Subjective - Date & Time of Evaluation Date of Evaluation: 06/06/18 Time of Evaluation: :19 - Subjective Subjective: Nephrology Consultation Note: Assessment: stable acute cholecystitis Acute Kidney Injury (N17.9) likely hemodynamic due to sepsis/ATN, BP fluctuations, limited oral intake Diabetic chronic Kidney Disease (E11.22) Hypertensive Chronic Kidney Disease (I12.9) with HTN urgency Chronic Kidney Disease (N18.3) Stage 3 with ? mg proteinuria (R80.9) likely due to DM/HTN Anemia (D64.9), severe pHTN with severe TR. Plan No acute need for renal replacement therapy at this time. renal function mildly improved continue to monitor can resume IVF if pt is not eating/drinking adequately Hypertension control with meds as ordered. Maintain hemodynamics stable. Avoid hypotension. hold ACEI/ARB due to recent DORIS Monitor Input/Output, daily weights and renal function with basic metabolic panel cardiology, ID surgery following supplement lytes as needed S: seen and examined fatigued Physical Examination: General Appearance: Comfortable, in no acute respiratory distress, co-operative . better appearing. on high flow o2 Vitals reviewed and noted as below Head; Atraumatic, normocephalic ENT: no ulcers no thrush. Tongue is midline. Oropharynx: no rash or ulcers. EYES: Rt eye unable to see. Eye muscles and extraocular movement intact. Sclera is anicteric. Neck; supple no lymphadenopathy, no thyromegaly or bruit Lungs: Normal respiratory rate/effort. Breath sounds reduced at Rt base Heart: Normal rate. s1s2 normal. No rub or gallop. Extremities: no edema. No varicose veins Neurological: Patient is alert, awake and oriented. speech impaired due to stroke hx Skin: Warm and dry. Normal turgor. No rash. Palpitation: Normal elasticity for age Abdomen: Abdomen is soft/distended. Bowel sounds +. There is no abdominal tenderness, no guarding/rigidity no organomegaly + perc gb tube Psych:flat MSK: no joint tenderness or swelling. Digits and nails normal, no deformity : kidney or bladder not palpable Labs/imaging reviewed. Past medical history, past surgical history, family history, social history, allergy reviewed and noted as below Family hx: no hx of CKD. Rest non-contributory UA 2+ protein and 1+ blood renal imaging okay on sono but MRCP reported renal atrophy Objective - Vital Signs/Intake and Output Vital Signs (last 24 hours): Temp Pulse Resp BP Pulse Ox 99 F 72 18 121/66 95 06/06/18 07:20 06/06/18 07:20 06/06/18 08:49 06/06/18 07:20 06/06/18 07:20 Intake and Output: 06/06/18 06/06/18 06:59 18:59 Intake Total 1175 Output Total 130 Balance 1045 - Medications Medications: Current Medications Amlodipine Besylate (Norvasc) 10 mg PO DAILY [facility] Last Admin: 06/06/18 09:17 Dose: 10 mg Carvedilol (Coreg) 6.25 mg PO BID [facility] Last Admin: 06/06/18 09:17 Dose: 6.25 mg Dextrose (Dextrose 50% Inj) 0 ml IV STAT PRN; Protocol PRN Reason: Hypoglycemia Protocol Dextrose (Glutose 15) 0 gm PO ONCE PRN; Protocol PRN Reason: Hypoglycemia Protocol Enoxaparin Sodium (Lovenox) 30 mg SC DAILY [facility] Last Admin: 06/06/18 09:17 Dose: 30 mg Glucagon (Glucagen Diagnostic Kit) 0 mg IM STAT PRN; Protocol PRN Reason: Hypoglycemia Protocol Meropenem 1 gm/ Sodium (Chloride) 100 mls @ 100 mls/hr IVPB Q12H [facility]; Protocol Last Admin: 06/06/18 02:10 Dose: 100 mls/hr Insulin Human Regular (Novolin R) 0 unit SC ACHS [facility]; Protocol Last Admin: 06/06/18 11:32 Dose: Not Given Losartan Potassium (Cozaar) 12.5 mg PO DAILY [facility] Last Admin: 06/02/18 09:26 Dose: 12.5 mg Morphine Sulfate (Morphine) 2 mg IVP Q4 PRN PRN Reason: Pain, severe (8-10) Last Admin: 06/06/18 12:31 Dose: 2 mg Ondansetron HCl (Zofran Inj) 4 mg IVP Q4H PRN PRN Reason: Nausea/Vomiting Last Admin: 05/31/18 12:44 Dose: 4 mg - Labs Labs: 06/06/18 06:28 06/06/18 06:28 PT 13.1 SECONDS (9.7-12.2) H 06/04/18 06:44 INR 1.2 06/04/18 06:44 APTT 33 SECONDS (21-34) 06/04/18 06:44
--- NOTE | 2018-06-06 13:48 | CP.PCM.PN ---
Subjective - Date & Time of Evaluation Date of Evaluation: 06/06/18 Time of Evaluation: 12:00 - Subjective Subjective: Patient seen and examined Lying comfortably in no distress on high flow oxygen CAT scan of the chest consistent with small right-sided pleural effusion No pneumonic infiltrate Patient status post cholecystostomy tube Objective - Vital Signs/Intake and Output Vital Signs (last 24 hours): Temp Pulse Resp BP Pulse Ox 99 F 72 18 121/66 95 06/06/18 07:20 06/06/18 07:20 06/06/18 08:49 06/06/18 07:20 06/06/18 07:20 Intake and Output: 06/06/18 06/06/18 06:59 18:59 Intake Total 1175 Output Total 130 Balance 1045 - Medications Medications: Current Medications Amlodipine Besylate (Norvasc) 10 mg PO DAILY [facility] Last Admin: 06/06/18 09:17 Dose: 10 mg Carvedilol (Coreg) 6.25 mg PO BID [facility] Last Admin: 06/06/18 09:17 Dose: 6.25 mg Dextrose (Dextrose 50% Inj) 0 ml IV STAT PRN; Protocol PRN Reason: Hypoglycemia Protocol Dextrose (Glutose 15) 0 gm PO ONCE PRN; Protocol PRN Reason: Hypoglycemia Protocol Enoxaparin Sodium (Lovenox) 30 mg SC DAILY [facility] Last Admin: 06/06/18 09:17 Dose: 30 mg Glucagon (Glucagen Diagnostic Kit) 0 mg IM STAT PRN; Protocol PRN Reason: Hypoglycemia Protocol Meropenem 1 gm/ Sodium (Chloride) 100 mls @ 100 mls/hr IVPB Q12H [facility]; Protocol Last Admin: 06/06/18 02:10 Dose: 100 mls/hr Insulin Human Regular (Novolin R) 0 unit SC ACHS [facility]; Protocol Last Admin: 06/06/18 11:32 Dose: Not Given Losartan Potassium (Cozaar) 12.5 mg PO DAILY [facility] Last Admin: 06/02/18 09:26 Dose: 12.5 mg Morphine Sulfate (Morphine) 2 mg IVP Q4 PRN PRN Reason: Pain, severe (8-10) Last Admin: 06/06/18 12:31 Dose: 2 mg Ondansetron HCl (Zofran Inj) 4 mg IVP Q4H PRN PRN Reason: Nausea/Vomiting Last Admin: 05/31/18 12:44 Dose: 4 mg - Labs Labs: 06/06/18 06:28 06/06/18 06:28 PT 13.1 SECONDS (9.7-12.2) H 06/04/18 06:44 INR 1.2 06/04/18 06:44 APTT 33 SECONDS (21-34) 06/04/18 06:44 Assessment and Plan (1) Pleural effusion Assessment & Plan: Small effusion does not need thoracentesis most likely reactive Continue antibiotics and present management Discontinue high flow oxygen and switch her to 2-3 L nasal cannula and follow-up saturation Status: Acute (2) DORIS (acute kidney injury) Status: Acute
--- NOTE | 2018-06-06 15:14 | CP.PCM.PN ---
Subjective - Date & Time of Evaluation Date of Evaluation: 06/06/18 - Subjective Subjective: patient seen today no nausea, no vomiting, no fever, no diarrhea, no shortness of breath Objective - Vital Signs/Intake and Output Vital Signs (last 24 hours): Temp Pulse Resp BP Pulse Ox 99 F 72 19 121/66 95 06/06/18 07:20 06/06/18 07:20 06/06/18 14:02 06/06/18 07:20 06/06/18 07:20 Intake and Output: 06/06/18 06/06/18 06:59 18:59 Intake Total 1175 Output Total 130 Balance 1045 - Medications Medications: Current Medications Amlodipine Besylate (Norvasc) 10 mg PO DAILY [facility] Last Admin: 06/06/18 09:17 Dose: 10 mg Carvedilol (Coreg) 6.25 mg PO BID [facility] Last Admin: 06/06/18 09:17 Dose: 6.25 mg Dextrose (Dextrose 50% Inj) 0 ml IV STAT PRN; Protocol PRN Reason: Hypoglycemia Protocol Dextrose (Glutose 15) 0 gm PO ONCE PRN; Protocol PRN Reason: Hypoglycemia Protocol Enoxaparin Sodium (Lovenox) 30 mg SC DAILY [facility] Last Admin: 06/06/18 09:17 Dose: 30 mg Glucagon (Glucagen Diagnostic Kit) 0 mg IM STAT PRN; Protocol PRN Reason: Hypoglycemia Protocol Meropenem 1 gm/ Sodium (Chloride) 100 mls @ 100 mls/hr IVPB Q12H [facility]; Protocol Last Admin: 06/06/18 13:51 Dose: 100 mls/hr Insulin Human Regular (Novolin R) 0 unit SC ACHS [facility]; Protocol Last Admin: 06/06/18 11:32 Dose: Not Given Losartan Potassium (Cozaar) 12.5 mg PO DAILY [facility] Last Admin: 06/02/18 09:26 Dose: 12.5 mg Morphine Sulfate (Morphine) 2 mg IVP Q4 PRN PRN Reason: Pain, severe (8-10) Last Admin: 06/06/18 12:31 Dose: 2 mg Ondansetron HCl (Zofran Inj) 4 mg IVP Q4H PRN PRN Reason: Nausea/Vomiting Last Admin: 05/31/18 12:44 Dose: 4 mg - Labs Labs: 06/06/18 06:28 06/06/18 06:28 PT 13.1 SECONDS (9.7-12.2) H 06/04/18 06:44 INR 1.2 06/04/18 06:44 APTT 33 SECONDS (21-34) 06/04/18 06:44 - Constitutional Appears: Well - Head Exam Head Exam: ATRAUMATIC, NORMAL INSPECTION, NORMOCEPHALIC - Eye Exam Eye Exam: EOMI, Normal appearance, PERRL Pupil Exam: NORMAL ACCOMODATION, PERRL - ENT Exam ENT Exam: Mucous Membranes Moist, Normal Exam - Neck Exam Neck Exam: Full ROM, Normal Inspection. absent: Lymphadenopathy - Respiratory Exam Respiratory Exam: Decreased Breath Sounds - Cardiovascular Exam Cardiovascular Exam: REGULAR RHYTHM, +S1, +S2 - GI/Abdominal Exam GI & Abdominal Exam: Soft, Diminished Bowel Sounds - Rectal Exam Rectal Exam: Deferred - Neurological Exam Neurological Exam: Oriented x3 Assessment and Plan (1) Abdominal pain Status: Acute (2) Cholecystitis Status: Acute (3) Nausea Status: Acute (4) CVA, old, dysarthria Status: Acute (5) Contusion Status: Acute (6) Hyperglycemia Status: Acute (7) Ischemic stroke Status: Acute (8) Slurring of speech Status: Acute (9) Toothache Status: Acute (10) UTI (urinary tract infection) Status: Acute (11) Diabetes mellitus Status: Chronic (12) Hyperlipidemia Status: Chronic (13) Hypertension Status: Chronic - Assessment and Plan (Free Text) Plan: medications reviewed labs reviewed vitals reviewed coreg cozar dextrose 50% inj glucagen diagnostic kit glutose 15 lovenox meropenem morphine norvasc novolin R zofran inj
--- NOTE | 2018-06-06 17:42 | CP.PCM.PN ---
<Rubi Hill - Last Filed: 06/06/18 20:00> Subjective - Date & Time of Evaluation Date of Evaluation: 06/06/18 Time of Evaluation: 07:25 - Subjective Subjective: General Surgery: Sunita Patient seen and examined this am at bedside. patient is awake but sleepy. denies f/c, n/v. endorses RUQ abdominal pain. pCT draining well with 20-30cc overnigh. remains on HFNC, endorses flatus but no BM Objective - Vital Signs/Intake and Output Vital Signs (last 24 hours): Temp Pulse Resp BP Pulse Ox 98.1 F 61 20 146/63 93 L 06/06/18 15:21 06/06/18 15:21 06/06/18 16:26 06/06/18 15:21 06/06/18 15:21 Intake and Output: 06/06/18 06/06/18 06:59 18:59 Intake Total 1175 600 Output Total 130 40 Balance 1045 560 - Medications Medications: Current Medications Amlodipine Besylate (Norvasc) 10 mg PO DAILY [facility] Last Admin: 06/06/18 09:17 Dose: 10 mg Carvedilol (Coreg) 6.25 mg PO BID [facility] Last Admin: 06/06/18 17:35 Dose: 6.25 mg Dextrose (Dextrose 50% Inj) 0 ml IV STAT PRN; Protocol PRN Reason: Hypoglycemia Protocol Dextrose (Glutose 15) 0 gm PO ONCE PRN; Protocol PRN Reason: Hypoglycemia Protocol Enoxaparin Sodium (Lovenox) 30 mg SC DAILY [facility] Last Admin: 06/06/18 09:17 Dose: 30 mg Glucagon (Glucagen Diagnostic Kit) 0 mg IM STAT PRN; Protocol PRN Reason: Hypoglycemia Protocol Meropenem 1 gm/ Sodium (Chloride) 100 mls @ 100 mls/hr IVPB Q12H [facility]; Protocol Last Admin: 06/06/18 13:51 Dose: 100 mls/hr Insulin Human Regular (Novolin R) 0 unit SC ACHS [facility]; Protocol Last Admin: 06/06/18 16:30 Dose: 2 units Losartan Potassium (Cozaar) 12.5 mg PO DAILY [facility] Last Admin: 06/02/18 09:26 Dose: 12.5 mg Morphine Sulfate (Morphine) 2 mg IVP Q4 PRN PRN Reason: Pain, severe (8-10) Last Admin: 06/06/18 12:31 Dose: 2 mg Ondansetron HCl (Zofran Inj) 4 mg IVP Q4H PRN PRN Reason: Nausea/Vomiting Last Admin: 05/31/18 12:44 Dose: 4 mg - Labs Labs: 06/06/18 06:28 06/06/18 06:28 PT 13.1 SECONDS (9.7-12.2) H 06/04/18 06:44 INR 1.2 06/04/18 06:44 APTT 33 SECONDS (21-34) 06/04/18 06:44 - Constitutional Appears: Well, Non-toxic, No Acute Distress - Head Exam Head Exam: ATRAUMATIC, NORMOCEPHALIC - Eye Exam Eye Exam: EOMI - ENT Exam ENT Exam: Mucous Membranes Moist - Respiratory Exam Respiratory Exam: NORMAL BREATHING PATTERN - Cardiovascular Exam Cardiovascular Exam: REGULAR RHYTHM - GI/Abdominal Exam GI & Abdominal Exam: Soft, Tenderness (RUQ). absent: Guarding Additional comments: PCT tube in place, 30 cc overnight - Extremities Exam Extremities Exam: absent: Calf Tenderness, Pedal Edema - Neurological Exam Neurological Exam: Alert, Awake, Oriented x3 - Psychiatric Exam Psychiatric exam: Normal Affect, Normal Mood - Skin Skin Exam: Dry, Intact, Normal Color, Warm Assessment and Plan - Assessment and Plan (Free Text) Assessment: 67 F with cholecystitis s/p IR cholecystostomy tube placement Plan: -IV abx -Pain control -F/u Nephrology recommendations -recommend Pulm consult -medical management as per primary - d/w Dr. Sunita Hill, PGY 1 <Anatoly Dorsey - Last Filed: 06/14/18 18:30> Objective - Vital Signs/Intake and Output Vital Signs (last 24 hours): Temp Pulse Resp BP Pulse Ox 97.5 F L 59 L 20 139/61 96 06/14/18 08:20 06/14/18 08:20 06/14/18 08:20 06/14/18 08:20 06/14/18 08:20 Intake and Output: 06/14/18 06/14/18 06:59 18:59 Intake Total 1500 300 Output Total 50 Balance 1450 300 - Medications Medications: Current Medications Amlodipine Besylate (Norvasc) 10 mg PO DAILY [facility] Last Admin: 06/14/18 09:29 Dose: 10 mg Carvedilol (Coreg) 6.25 mg PO BID [facility] Last Admin: 06/14/18 17:31 Dose: 6.25 mg Dextrose (Dextrose 50% Inj) 0 ml IV STAT PRN; Protocol PRN Reason: Hypoglycemia Protocol Dextrose (Glutose 15) 0 gm PO ONCE PRN; Protocol PRN Reason: Hypoglycemia Protocol Epoetin Kody (Procrit) 4,000 unit SC MWF [facility] Stop: 06/19/18 09:01 Ferrous Gluconate (Fergon) 324 mg PO TID [facility] Last Admin: 06/14/18 17:31 Dose: 324 mg Glucagon (Glucagen Diagnostic Kit) 0 mg IM STAT PRN; Protocol PRN Reason: Hypoglycemia Protocol Heparin Sodium (Porcine) (Heparin) 5,000 units SC Q8 [facility] Last Admin: 06/14/18 13:18 Dose: 5,000 units Metronidazole (Flagyl) 500 mg in 100 mls @ 100 mls/hr IVPB Q8H [facility]; Protocol Last Admin: 06/14/18 13:20 Dose: 100 mls/hr Linezolid (Zyvox 600mg/300ml D5w) 600 mg in 300 mls @ 200 mls/hr IVPB Q12H [facility]; Protocol Last Admin: 06/14/18 16:16 Dose: 200 mls/hr Insulin Human Regular (Novolin R) 0 unit SC ACHS [facility]; Protocol Last Admin: 06/14/18 16:11 Dose: Not Given Losartan Potassium (Cozaar) 25 mg PO DAILY [facility] Last Admin: 06/14/18 09:30 Dose: 25 mg Ondansetron HCl (Zofran Inj) 4 mg IVP Q4H PRN PRN Reason: Nausea/Vomiting Last Admin: 05/31/18 12:44 Dose: 4 mg Saccharomyces Boulardii (Florastor) 250 mg PO BID [facility] Last Admin: 06/14/18 17:31 Dose: 250 mg Vancomycin HCl (Vancocin 250mg Capsule) 250 mg PO QID [facility] Last Admin: 06/14/18 17:34 Dose: 250 mg Vitamin B Complex/Vit C/Folic Acid (Nephro-Thaddeus) 1 tab PO 0800 [facility] - Labs Labs: 06/14/18 07:50 06/14/18 07:50 PT 13.1 SECONDS (9.7-12.2) H 06/04/18 06:44 INR 1.2 06/04/18 06:44 APTT 33 SECONDS (21-34) 06/04/18 06:44 Attending/Attestation - Attestation I have personally seen and examined this patient.: Yes I have fully participated in the care of the patient.: Yes I have reviewed all pertinent clinical information, including history, physical exam and plan: Yes Notes (Text): Pt was seen and examined at bedside Agree with above note and assessment Pt is improving clinically Pulmonary recommendation reviewed c.w current mx Plan d.w pt and primary team
[2018-06-07] MEDS: Meropenem 1 GM in Sodium Chloride 0.9% 100 ML IVPB SCH ×2 (01:54→13:44)
[2018-06-07] MEDS: (Novolin R) Insulin Human Regular 100 units/ml vial SC SCH ×4 (08:26→21:31)
[2018-06-07 09:10] LABS: BASO # 0.1 K/uL (0.0-0.2); BASO % 0.4 % (0.0-2.0); EOS # 0.8 K/uL (0.0-0.7); EOS % 5.2 % (0.0-4.0); HEMOGLOBIN 9.5 g/dL (11.0-16.0); LYMPH # 1.9 K/uL (1.0-4.3); LYMPH % 12.2 % (20.0-40.0); MEAN CELL VOLUME 80.3 fL (81.0-99.0); MEAN CORPUSCULAR HEMOGLOBIN 25.7 pg (27.0-31.0); MEAN PLATELET VOLUME 9.1 fL (7.2-11.7); MONO # 0.9 K/uL (0.0-0.8); MONO % 5.8 % (0.0-10.0); NEUT # 11.9 K/uL (1.8-7.0); NEUT % 76.4 % (50.0-75.0); NRBC % 0.1 % (0.0-2.0); RBC 3.71 Mil/uL (3.80-5.20); RED CELL DISTRIBUTION WIDTH 15.8 % (11.5-14.5); WHITE BLOOD COUNT 15.6 K/uL (4.8-10.8)
[2018-06-07 09:32] LABS: ALB/GLOB RATIO 0.8 (1.0-2.1); ALBUMIN 2.7 g/dL (3.5-5.0); CALCIUM 8.1 mg/dl (8.6-10.4)
[2018-06-07] MEDS: Enoxaparin 30 mg Syringe SC SCH (09:51)
--- NOTE | 2018-06-07 16:23 | CP.PCM.PN ---
Subjective - Date & Time of Evaluation Date of Evaluation: 06/07/18 Time of Evaluation: 09:00 - Subjective Subjective: remains weak but in NAD IV antibiotics in progress orders renewed after checking cultures Objective - Vital Signs/Intake and Output Vital Signs (last 24 hours): Temp Pulse Resp BP Pulse Ox 99.2 F 66 20 158/72 H 93 L 06/07/18 16:11 06/07/18 16:11 06/07/18 16:11 06/07/18 16:11 06/07/18 16:11 Intake and Output: 06/07/18 06/07/18 06:59 18:59 Intake Total 1205 600 Output Total 82 60 Balance 1123 540 - Medications Medications: Current Medications Amlodipine Besylate (Norvasc) 10 mg PO DAILY [facility] Last Admin: 06/07/18 09:50 Dose: 10 mg Carvedilol (Coreg) 6.25 mg PO BID [facility] Last Admin: 06/07/18 09:51 Dose: 6.25 mg Dextrose (Dextrose 50% Inj) 0 ml IV STAT PRN; Protocol PRN Reason: Hypoglycemia Protocol Dextrose (Glutose 15) 0 gm PO ONCE PRN; Protocol PRN Reason: Hypoglycemia Protocol Enoxaparin Sodium (Lovenox) 30 mg SC DAILY [facility] Last Admin: 06/07/18 09:51 Dose: 30 mg Glucagon (Glucagen Diagnostic Kit) 0 mg IM STAT PRN; Protocol PRN Reason: Hypoglycemia Protocol Meropenem 1 gm/ Sodium (Chloride) 100 mls @ 100 mls/hr IVPB Q12H [facility]; Protocol Last Admin: 06/07/18 13:44 Dose: 100 mls/hr Insulin Human Regular (Novolin R) 0 unit SC ACHS [facility]; Protocol Last Admin: 06/07/18 12:16 Dose: 2 units Losartan Potassium (Cozaar) 12.5 mg PO DAILY [facility] Last Admin: 06/02/18 09:26 Dose: 12.5 mg Morphine Sulfate (Morphine) 2 mg IVP Q4 PRN PRN Reason: Pain, severe (8-10) Last Admin: 06/07/18 10:07 Dose: 2 mg Ondansetron HCl (Zofran Inj) 4 mg IVP Q4H PRN PRN Reason: Nausea/Vomiting Last Admin: 05/31/18 12:44 Dose: 4 mg - Labs Labs: 06/07/18 08:55 06/07/18 08:55 PT 13.1 SECONDS (9.7-12.2) H 06/04/18 06:44 INR 1.2 06/04/18 06:44 APTT 33 SECONDS (21-34) 06/04/18 06:44 - Constitutional Appears: Confused, Chronically Ill - Head Exam Head Exam: NORMOCEPHALIC - Eye Exam Eye Exam: absent: Scleral icterus Pupil Exam: NORMAL ACCOMODATION - ENT Exam ENT Exam: Mucous Membranes Dry - Neck Exam Neck Exam: absent: Lymphadenopathy - Respiratory Exam Respiratory Exam: Decreased Breath Sounds, Rhonchi - Cardiovascular Exam Cardiovascular Exam: REGULAR RHYTHM, +S1, +S2 - GI/Abdominal Exam GI & Abdominal Exam: Distended, Soft. absent: Tenderness - Rectal Exam Rectal Exam: Deferred - Exam Exam: NORMAL INSPECTION - Extremities Exam Extremities Exam: Pedal Edema - Back Exam Back Exam: absent: CVA tenderness (L), CVA tenderness (R) - Neurological Exam Neurological Exam: Alert, Altered, Awake, CN II-XII Intact Neuro motor strength exam: Left Upper Extremity: 3, Right Upper Extremity: 3, Left Lower Extremity: 3, Right Lower Extremity: 3 - Psychiatric Exam Psychiatric exam: Depressed - Skin Skin Exam: Dry Assessment and Plan (1) Abdominal pain Status: Acute (2) Cholecystitis Status: Acute (3) CVA, old, dysarthria Status: Acute (4) Cholangitis Status: Acute (5) Diabetes mellitus Status: Chronic (6) Hyperlipidemia Status: Chronic (7) Hypertension Status: Chronic (8) DORIS (acute kidney injury) Status: Acute - Assessment and Plan (Free Text) Assessment: drain in place IV antibiotics in progress orders renewed after checking cultures
--- NOTE | 2018-06-07 19:59 | CP.PCM.PN ---
Subjective - Date & Time of Evaluation Date of Evaluation: 06/07/18 Time of Evaluation: 18:00 - Subjective Subjective: Patient seen and examined Awake and responsive Remains on high flow oxygen Complaining of diarrhea Minimal drainage from cholecystostomy tube Afebrile Small bilateral pleural effusion and does not need thoracentesis Consider to discontinue high flow Objective - Vital Signs/Intake and Output Vital Signs (last 24 hours): Temp Pulse Resp BP Pulse Ox 99.2 F 66 20 158/72 H 93 L 06/07/18 16:11 06/07/18 16:11 06/07/18 19:38 06/07/18 16:11 06/07/18 16:11 Intake and Output: 06/07/18 06/08/18 18:59 06:59 Intake Total 600 Output Total 60 Balance 540 - Medications Medications: Current Medications Amlodipine Besylate (Norvasc) 10 mg PO DAILY [facility] Last Admin: 06/07/18 09:50 Dose: 10 mg Carvedilol (Coreg) 6.25 mg PO BID [facility] Last Admin: 06/07/18 17:42 Dose: 6.25 mg Dextrose (Dextrose 50% Inj) 0 ml IV STAT PRN; Protocol PRN Reason: Hypoglycemia Protocol Dextrose (Glutose 15) 0 gm PO ONCE PRN; Protocol PRN Reason: Hypoglycemia Protocol Enoxaparin Sodium (Lovenox) 30 mg SC DAILY [facility] Last Admin: 06/07/18 09:51 Dose: 30 mg Glucagon (Glucagen Diagnostic Kit) 0 mg IM STAT PRN; Protocol PRN Reason: Hypoglycemia Protocol Meropenem 1 gm/ Sodium (Chloride) 100 mls @ 100 mls/hr IVPB Q12H [facility]; Protocol Last Admin: 06/07/18 13:44 Dose: 100 mls/hr Insulin Human Regular (Novolin R) 0 unit SC ACHS [facility]; Protocol Last Admin: 06/07/18 16:30 Dose: Not Given Losartan Potassium (Cozaar) 12.5 mg PO DAILY [facility] Last Admin: 06/02/18 09:26 Dose: 12.5 mg Morphine Sulfate (Morphine) 2 mg IVP Q4 PRN PRN Reason: Pain, severe (8-10) Last Admin: 06/07/18 10:07 Dose: 2 mg Ondansetron HCl (Zofran Inj) 4 mg IVP Q4H PRN PRN Reason: Nausea/Vomiting Last Admin: 05/31/18 12:44 Dose: 4 mg - Labs Labs: 06/07/18 08:55 06/07/18 08:55 PT 13.1 SECONDS (9.7-12.2) H 06/04/18 06:44 INR 1.2 06/04/18 06:44 APTT 33 SECONDS (21-34) 06/04/18 06:44 Assessment and Plan (1) Pleural effusion Status: Acute (2) DORIS (acute kidney injury) Status: Acute
--- NOTE | 2018-06-07 20:19 | CP.PCM.PN ---
Subjective - Date & Time of Evaluation Date of Evaluation: 06/07/18 - Subjective Subjective: patient seen and examined at bedisde today no nausea, no vomitng, no diarrhea, no fever, no shortness of breath Objective - Vital Signs/Intake and Output Vital Signs (last 24 hours): Temp Pulse Resp BP Pulse Ox 99.2 F 66 20 158/72 H 93 L 06/07/18 16:11 06/07/18 16:11 06/07/18 19:38 06/07/18 16:11 06/07/18 16:11 Intake and Output: 06/07/18 06/08/18 18:59 06:59 Intake Total 600 Output Total 60 Balance 540 - Medications Medications: Current Medications Amlodipine Besylate (Norvasc) 10 mg PO DAILY [facility] Last Admin: 06/07/18 09:50 Dose: 10 mg Carvedilol (Coreg) 6.25 mg PO BID [facility] Last Admin: 06/07/18 17:42 Dose: 6.25 mg Dextrose (Dextrose 50% Inj) 0 ml IV STAT PRN; Protocol PRN Reason: Hypoglycemia Protocol Dextrose (Glutose 15) 0 gm PO ONCE PRN; Protocol PRN Reason: Hypoglycemia Protocol Enoxaparin Sodium (Lovenox) 30 mg SC DAILY [facility] Last Admin: 06/07/18 09:51 Dose: 30 mg Glucagon (Glucagen Diagnostic Kit) 0 mg IM STAT PRN; Protocol PRN Reason: Hypoglycemia Protocol Meropenem 1 gm/ Sodium (Chloride) 100 mls @ 100 mls/hr IVPB Q12H [facility]; Protocol Last Admin: 06/07/18 13:44 Dose: 100 mls/hr Insulin Human Regular (Novolin R) 0 unit SC ACHS [facility]; Protocol Last Admin: 06/07/18 16:30 Dose: Not Given Losartan Potassium (Cozaar) 12.5 mg PO DAILY [facility] Last Admin: 06/02/18 09:26 Dose: 12.5 mg Morphine Sulfate (Morphine) 2 mg IVP Q4 PRN PRN Reason: Pain, severe (8-10) Last Admin: 06/07/18 10:07 Dose: 2 mg Ondansetron HCl (Zofran Inj) 4 mg IVP Q4H PRN PRN Reason: Nausea/Vomiting Last Admin: 05/31/18 12:44 Dose: 4 mg - Labs Labs: 06/07/18 08:55 06/07/18 08:55 PT 13.1 SECONDS (9.7-12.2) H 06/04/18 06:44 INR 1.2 06/04/18 06:44 APTT 33 SECONDS (21-34) 06/04/18 06:44 - Constitutional Appears: Well - Head Exam Head Exam: ATRAUMATIC, NORMAL INSPECTION, NORMOCEPHALIC - Eye Exam Eye Exam: EOMI, Normal appearance, PERRL Pupil Exam: NORMAL ACCOMODATION, PERRL - ENT Exam ENT Exam: Mucous Membranes Moist, Normal Exam - Neck Exam Neck Exam: Full ROM, Normal Inspection. absent: Lymphadenopathy - Respiratory Exam Respiratory Exam: Decreased Breath Sounds - Cardiovascular Exam Cardiovascular Exam: REGULAR RHYTHM, +S1, +S2 - GI/Abdominal Exam GI & Abdominal Exam: Soft, Diminished Bowel Sounds - Rectal Exam Rectal Exam: Deferred - Neurological Exam Neurological Exam: Oriented x3 Assessment and Plan (1) Abdominal pain Status: Acute (2) Cholecystitis Status: Acute (3) Nausea Status: Acute (4) CVA, old, dysarthria Status: Acute (5) Contusion Status: Acute (6) Hyperglycemia Status: Acute (7) Ischemic stroke Status: Acute (8) Slurring of speech Status: Acute (9) Toothache Status: Acute (10) UTI (urinary tract infection) Status: Acute (11) Diabetes mellitus Status: Chronic (12) Hyperlipidemia Status: Chronic (13) Hypertension Status: Chronic - Assessment and Plan (Free Text) Plan: Patient has less drainage now from the drainage bag after cholelitotomy Follow up with GI doctor Follow up with surgical doctor Follow up with id doctor celso cozar dextrose 50% inj glucagen diagnostic kit glutose 15 lovenox meropenem morphine norvasc novolin R zofran inj medications reviewed labs reviewed vitals reviewed
[2018-06-07] MEDS: metroNIDAZOLE IV 500 mg/100 ml 500 MG/100 ML BAG IVPB SCH (22:35)
[2018-06-08] MEDS: Meropenem 1 GM in Sodium Chloride 0.9% 100 ML IVPB SCH ×2 (02:45→14:24)
[2018-06-08] MEDS: metroNIDAZOLE IV 500 mg/100 ml 500 MG/100 ML BAG IVPB SCH ×3 (05:40→21:36)
[2018-06-08] MEDS: (Novolin R) Insulin Human Regular 100 units/ml vial SC SCH ×4 (08:09→21:35)
--- NOTE | 2018-06-08 08:32 | CP.PCM.PN ---
<Riddhi Montanez - Last Filed: 06/08/18 14:33> Subjective - Date & Time of Evaluation Date of Evaluation: 06/08/18 Time of Evaluation: 08:00 - Subjective Subjective: Medicine Progress Note for Dr. Deepak Post's Service: Patient seen and examined at bedside. Cholecystostomy tube in place draining brown bile. Patient is awake and alert today. Patient is tolerating diet. Objective - Vital Signs/Intake and Output Vital Signs (last 24 hours): Temp Pulse Resp BP Pulse Ox 98.2 F 64 20 159/63 H 94 L 06/08/18 07:05 06/08/18 07:05 06/08/18 07:05 06/08/18 07:05 06/08/18 07:05 Intake and Output: 06/08/18 06/08/18 06:59 18:59 Intake Total 1305 Output Total 93 Balance 1212 - Medications Medications: Current Medications Amlodipine Besylate (Norvasc) 10 mg PO DAILY [facility] Last Admin: 06/07/18 09:50 Dose: 10 mg Carvedilol (Coreg) 6.25 mg PO BID [facility] Last Admin: 06/07/18 17:42 Dose: 6.25 mg Dextrose (Dextrose 50% Inj) 0 ml IV STAT PRN; Protocol PRN Reason: Hypoglycemia Protocol Dextrose (Glutose 15) 0 gm PO ONCE PRN; Protocol PRN Reason: Hypoglycemia Protocol Enoxaparin Sodium (Lovenox) 30 mg SC DAILY [facility] Last Admin: 06/07/18 09:51 Dose: 30 mg Glucagon (Glucagen Diagnostic Kit) 0 mg IM STAT PRN; Protocol PRN Reason: Hypoglycemia Protocol Meropenem 1 gm/ Sodium (Chloride) 100 mls @ 100 mls/hr IVPB Q12H [facility]; Protocol Last Admin: 06/08/18 02:45 Dose: 100 mls/hr Metronidazole (Flagyl) 500 mg in 100 mls @ 100 mls/hr IVPB Q8H [facility]; Protocol Last Admin: 06/08/18 05:40 Dose: 100 mls/hr Insulin Human Regular (Novolin R) 0 unit SC ACHS [facility]; Protocol Last Admin: 06/08/18 08:09 Dose: 2 units Losartan Potassium (Cozaar) 12.5 mg PO DAILY [facility] Last Admin: 06/02/18 09:26 Dose: 12.5 mg Morphine Sulfate (Morphine) 2 mg IVP Q4 PRN PRN Reason: Pain, severe (8-10) Last Admin: 06/08/18 03:56 Dose: 2 mg Ondansetron HCl (Zofran Inj) 4 mg IVP Q4H PRN PRN Reason: Nausea/Vomiting Last Admin: 05/31/18 12:44 Dose: 4 mg - Labs Labs: 06/07/18 08:55 06/07/18 08:55 PT 13.1 SECONDS (9.7-12.2) H 06/04/18 06:44 INR 1.2 06/04/18 06:44 APTT 33 SECONDS (21-34) 06/04/18 06:44 - Constitutional Appears: No Acute Distress, Chronically Ill - Head Exam Head Exam: ATRAUMATIC, NORMAL INSPECTION - Eye Exam Eye Exam: EOMI, Normal appearance - ENT Exam ENT Exam: Mucous Membranes Moist - Respiratory Exam Respiratory Exam: NORMAL BREATHING PATTERN - Cardiovascular Exam Cardiovascular Exam: REGULAR RHYTHM - GI/Abdominal Exam GI & Abdominal Exam: Soft, Normal Bowel Sounds Additional comments: drain - brown liquid - Neurological Exam Neurological Exam: Awake - Psychiatric Exam Psychiatric exam: Flat Affect Assessment and Plan - Assessment and Plan (Free Text) Assessment: Cholecystitis s/p cholecystostomy tube placement POD #1 - Cholecystostomy tube drained about 20 cc on placement - Bile fluid sent for culture, with results pending - Will trend LFTs in am Blood Cx (05/30/18): No GTD x 2 Urine Cx (05/30/18): No growth Body Fluid Culture: No growth market research consultant, Dr. Dorsey Morphine 2mg IV Q4H PRN severe pain Zofran 4mg IVP PRN N/V ID customer care voice consultant, Dr. Alanis Merrem 1gm Q12H STORMY (start 05/30/18, Day 5) --> continue till 06/15/18 Metronidazole 500mg q8h (start 06/07/18) --> continue till 06/15/18 - D/C Vancomycin 1gm IV Q12H (Start 05/31; Received 3 days) GI customer care voice consultant, Dr. Gomez - Pt for lap kleber - signed off DORIS Cr 2.4 on AM labs; previous baseline 1.6 Likely due to ATN from sepsis vs prerenal from volume loss per Dr Post Hold Losartan Nephro, Dr. Choi is consulted Pleural effusion CXR 06/03/18: elevated right hemidiaphragm, possible small right pleural ef fusion. Consider possibily of subpulmonic pleural effusion CXR (06/02/18): Moderate right pleural effusion, trace left pleural effusion. Interval right basal compressive atelectasis. Cardiomegaly. Increased pulm venous congestion Pro BNP elevated on admission. will repeat value Pulm Consult: Dr. Duenas - per Dr. Duenas Small bilateral pleural effusion and does not need thoracentesis Diabetes HgbA1c is 8.6 ISS HTN (poorly controlled) Hold Losartan Start Amlodipine 10mg Start Coreg 6.25mg PO BID PPX Will consider restarting VTE prophylaxis if no plan for procedure GI: not indicated at this time All management per Dr. Deepak Montanez PGY-2 <Bernard Post - Last Filed: 06/09/18 08:53> Objective - Vital Signs/Intake and Output Vital Signs (last 24 hours): Temp Pulse Resp BP Pulse Ox 98.5 F 69 20 138/65 98 06/09/18 00:00 06/09/18 00:00 06/09/18 00:00 06/09/18 00:00 06/09/18 00:00 Intake and Output: 06/09/18 06/09/18 06:59 18:59 Intake Total 500 Output Total 151 Balance 349 - Medications Medications: Current Medications Amlodipine Besylate (Norvasc) 10 mg PO DAILY [facility] Last Admin: 06/08/18 09:44 Dose: 10 mg Carvedilol (Coreg) 6.25 mg PO BID [facility] Last Admin: 06/08/18 17:58 Dose: 6.25 mg Dextrose (Dextrose 50% Inj) 0 ml IV STAT PRN; Protocol PRN Reason: Hypoglycemia Protocol Dextrose (Glutose 15) 0 gm PO ONCE PRN; Protocol PRN Reason: Hypoglycemia Protocol Enoxaparin Sodium (Lovenox) 30 mg SC DAILY [facility] Last Admin: 06/08/18 09:45 Dose: 30 mg Glucagon (Glucagen Diagnostic Kit) 0 mg IM STAT PRN; Protocol PRN Reason: Hypoglycemia Protocol Meropenem 1 gm/ Sodium (Chloride) 100 mls @ 100 mls/hr IVPB Q12H [facility]; Protocol Last Admin: 06/09/18 01:44 Dose: 100 mls/hr Metronidazole (Flagyl) 500 mg in 100 mls @ 100 mls/hr IVPB Q8H [facility]; Protocol Last Admin: 06/09/18 05:40 Dose: 100 mls/hr Insulin Human Regular (Novolin R) 0 unit SC ACHS [facility]; Protocol Last Admin: 06/09/18 07:50 Dose: Not Given Losartan Potassium (Cozaar) 12.5 mg PO DAILY [facility] Last Admin: 06/02/18 09:26 Dose: 12.5 mg Morphine Sulfate (Morphine) 2 mg IVP Q4 PRN PRN Reason: Pain, severe (8-10) Last Admin: 06/09/18 03:57 Dose: 2 mg Ondansetron HCl (Zofran Inj) 4 mg IVP Q4H PRN PRN Reason: Nausea/Vomiting Last Admin: 05/31/18 12:44 Dose: 4 mg Saccharomyces Boulardii (Florastor) 250 mg PO BID [facility] Last Admin: 06/08/18 17:58 Dose: 250 mg - Labs Labs: 06/08/18 11:31 06/08/18 11:31 PT 13.1 SECONDS (9.7-12.2) H 06/04/18 06:44 INR 1.2 06/04/18 06:44 APTT 33 SECONDS (21-34) 06/04/18 06:44 Assessment and Plan (1) Abdominal pain Status: Acute (2) Cholecystitis Status: Acute (3) Nausea Status: Acute (4) CVA, old, dysarthria Status: Acute (5) Contusion Status: Acute (6) Hyperglycemia Status: Acute (7) Ischemic stroke Status: Acute (8) Slurring of speech Status: Acute (9) Toothache Status: Acute (10) UTI (urinary tract infection) Status: Acute (11) Diabetes mellitus Status: Chronic (12) Hyperlipidemia Status: Chronic (13) Hypertension Status: Chronic Attending/Attestation - Attestation I have personally seen and examined this patient.: Yes I have fully participated in the care of the patient.: Yes I have reviewed all pertinent clinical information, including history, physical exam and plan: Yes Notes (Text): 06/09/18 08:53 case seen and d.w staff and resident, concurred with finding and management.. still draining form tube s/p surg
--- NOTE | 2018-06-08 09:31 | CP.PCM.PN ---
<[email or web address] - Last Filed: 06/08/18 10:57> Subjective - Date & Time of Evaluation Date of Evaluation: 06/08/18 Time of Evaluation: 09:27 - Subjective Subjective: Pulm Consult Note for Dr. Duenas's service Patient was seen and examined at bedside. Patient had no current complaints. She is on nasal cannula. She denies SOB, pain, nausea, vomiting, dysuria, and fevers. She complained of diarrhea yesterday which has since resolved. She has not had a bowel movement today. Objective - Vital Signs/Intake and Output Vital Signs (last 24 hours): Temp Pulse Resp BP Pulse Ox 98.2 F 64 20 159/63 H 94 L 06/08/18 07:05 06/08/18 07:05 06/08/18 07:05 06/08/18 07:05 06/08/18 07:05 Intake and Output: 06/08/18 06/08/18 06:59 18:59 Intake Total 1305 Output Total 93 Balance 1212 - Medications Medications: Current Medications Amlodipine Besylate (Norvasc) 10 mg PO DAILY [facility] Last Admin: 06/07/18 09:50 Dose: 10 mg Carvedilol (Coreg) 6.25 mg PO BID [facility] Last Admin: 06/07/18 17:42 Dose: 6.25 mg Dextrose (Dextrose 50% Inj) 0 ml IV STAT PRN; Protocol PRN Reason: Hypoglycemia Protocol Dextrose (Glutose 15) 0 gm PO ONCE PRN; Protocol PRN Reason: Hypoglycemia Protocol Enoxaparin Sodium (Lovenox) 30 mg SC DAILY [facility] Last Admin: 06/07/18 09:51 Dose: 30 mg Glucagon (Glucagen Diagnostic Kit) 0 mg IM STAT PRN; Protocol PRN Reason: Hypoglycemia Protocol Meropenem 1 gm/ Sodium (Chloride) 100 mls @ 100 mls/hr IVPB Q12H [facility]; Protocol Last Admin: 06/08/18 02:45 Dose: 100 mls/hr Metronidazole (Flagyl) 500 mg in 100 mls @ 100 mls/hr IVPB Q8H [facility]; Protocol Last Admin: 06/08/18 05:40 Dose: 100 mls/hr Insulin Human Regular (Novolin R) 0 unit SC ACHS [facility]; Protocol Last Admin: 06/08/18 08:09 Dose: 2 units Losartan Potassium (Cozaar) 12.5 mg PO DAILY [facility] Last Admin: 06/02/18 09:26 Dose: 12.5 mg Morphine Sulfate (Morphine) 2 mg IVP Q4 PRN PRN Reason: Pain, severe (8-10) Last Admin: 06/08/18 03:56 Dose: 2 mg Ondansetron HCl (Zofran Inj) 4 mg IVP Q4H PRN PRN Reason: Nausea/Vomiting Last Admin: 05/31/18 12:44 Dose: 4 mg Saccharomyces Boulardii (Florastor) 250 mg PO BID [facility] - Labs Labs: 06/07/18 08:55 06/07/18 08:55 PT 13.1 SECONDS (9.7-12.2) H 06/04/18 06:44 INR 1.2 06/04/18 06:44 APTT 33 SECONDS (21-34) 06/04/18 06:44 - Constitutional Appears: Toxic, No Acute Distress, Chronically Ill - Head Exam Head Exam: NORMAL INSPECTION - Eye Exam Additional comments: Right eye discharge - ENT Exam ENT Exam: Mucous Membranes Moist Additional comments: flattened nose - Neck Exam Neck Exam: Normal Inspection - Respiratory Exam Respiratory Exam: Decreased Breath Sounds, NORMAL BREATHING PATTERN - Cardiovascular Exam Cardiovascular Exam: REGULAR RHYTHM - GI/Abdominal Exam GI & Abdominal Exam: Distended, Soft, Normal Bowel Sounds Additional comments: Patient has a patent drain in the RUQ. - Extremities Exam Extremities Exam: Normal Inspection. absent: Pedal Edema Additional comments: Weakness with the R upper extremity. - Skin Skin Exam: Dry, Intact - Additional Findings Additional findings: Patient is soft spoken, she has slurring of speech. Assessment and Plan - Assessment and Plan (Free Text) Assessment: 67 year old female with a PMH of DM, HTN, CVA with R sided weakness who presented for abdominal pain associated with nausea and vomiting. S/P cholecystectomy. Pulm was consulted for pleural effusions. Plan: 1. Pleural effusion does not need thoracentesis remains on high flow oxygen <Carlos Duenas S - Last Filed: 06/08/18 17:36> Objective - Vital Signs/Intake and Output Vital Signs (last 24 hours): Temp Pulse Resp BP Pulse Ox 98.9 F 65 18 135/67 95 06/08/18 15:32 06/08/18 15:32 06/08/18 15:32 06/08/18 15:32 06/08/18 15:32 Intake and Output: 06/08/18 06/08/18 06:59 18:59 Intake Total 1305 300 Output Total 93 42 Balance 1212 258 - Medications Medications: Current Medications Amlodipine Besylate (Norvasc) 10 mg PO DAILY [facility] Last Admin: 06/08/18 09:44 Dose: 10 mg Carvedilol (Coreg) 6.25 mg PO BID [facility] Last Admin: 06/08/18 09:44 Dose: 6.25 mg Dextrose (Dextrose 50% Inj) 0 ml IV STAT PRN; Protocol PRN Reason: Hypoglycemia Protocol Dextrose (Glutose 15) 0 gm PO ONCE PRN; Protocol PRN Reason: Hypoglycemia Protocol Enoxaparin Sodium (Lovenox) 30 mg SC DAILY [facility] Last Admin: 06/08/18 09:45 Dose: 30 mg Glucagon (Glucagen Diagnostic Kit) 0 mg IM STAT PRN; Protocol PRN Reason: Hypoglycemia Protocol Meropenem 1 gm/ Sodium (Chloride) 100 mls @ 100 mls/hr IVPB Q12H [facility]; Protocol Last Admin: 06/08/18 14:24 Dose: 100 mls/hr Metronidazole (Flagyl) 500 mg in 100 mls @ 100 mls/hr IVPB Q8H [facility]; Protocol Last Admin: 06/08/18 15:25 Dose: 100 mls/hr Insulin Human Regular (Novolin R) 0 unit SC ACHS [facility]; Protocol Last Admin: 06/08/18 11:14 Dose: 4 units Losartan Potassium (Cozaar) 12.5 mg PO DAILY [facility] Last Admin: 06/02/18 09:26 Dose: 12.5 mg Morphine Sulfate (Morphine) 2 mg IVP Q4 PRN PRN Reason: Pain, severe (8-10) Last Admin: 06/08/18 03:56 Dose: 2 mg Ondansetron HCl (Zofran Inj) 4 mg IVP Q4H PRN PRN Reason: Nausea/Vomiting Last Admin: 05/31/18 12:44 Dose: 4 mg Saccharomyces Boulardii (Florastor) 250 mg PO BID [facility] Last Admin: 06/08/18 09:48 Dose: 250 mg - Labs Labs: 06/08/18 11:31 06/08/18 11:31 PT 13.1 SECONDS (9.7-12.2) H 06/04/18 06:44 INR 1.2 06/04/18 06:44 APTT 33 SECONDS (21-34) 06/04/18 06:44 Assessment and Plan (1) Pleural effusion Status: Acute (2) DORIS (acute kidney injury) Status: Acute Attending/Attestation - Attestation I have personally seen and examined this patient.: Yes I have fully participated in the care of the patient.: Yes I have reviewed all pertinent clinical information, including history, physical exam and plan: Yes Notes (Text): 06/08/18 17:35 Patient seen and examined Case discussed with resident during the rounds Oxygen changed to 2 L nasal cannula Diarrhea improving Continue present treatment and does not need thoracentesis
[2018-06-08] MEDS: Enoxaparin 30 mg Syringe SC SCH (09:45)
[2018-06-08] MEDS: Saccharomyces Boulardi 250 mg Cap PO SCH ×2 (09:48→17:58)
[2018-06-08 11:42] LABS: BASO # 0.1 K/uL (0.0-0.2); BASO % 0.7 % (0.0-2.0); EOS # 0.7 K/uL (0.0-0.7); HEMOGLOBIN 9.2 g/dL (11.0-16.0); LYMPH # 1.7 K/uL (1.0-4.3); MEAN CELL VOLUME 79.8 fL (81.0-99.0); MEAN CORPUSCULAR HGB CONC 32.6 g/dL (33.0-37.0); MEAN PLATELET VOLUME 9.1 fL (7.2-11.7); MONO # 0.8 K/uL (0.0-0.8); MONO % 4.7 % (0.0-10.0); NEUT % 80.6 % (50.0-75.0); RBC 3.54 Mil/uL (3.80-5.20); RED CELL DISTRIBUTION WIDTH 15.8 % (11.5-14.5); WHITE BLOOD COUNT 17.3 K/uL (4.8-10.8)
[2018-06-08 12:00] LABS: ALB/GLOB RATIO 0.9 (1.0-2.1); ALBUMIN 2.8 g/dL (3.5-5.0); CALCIUM 8.4 mg/dl (8.6-10.4)
--- NOTE | 2018-06-08 13:52 | CP.PCM.PN ---
Subjective - Date & Time of Evaluation Date of Evaluation: 06/08/18 Time of Evaluation: 11:00 - Subjective Subjective: Nephrology Consultation Note: Assessment: stable acute cholecystitis Acute Kidney Injury (N17.9) likely hemodynamic due to sepsis/ATN, BP fluctuations, limited oral intake Diabetic chronic Kidney Disease (E11.22) Hypertensive Chronic Kidney Disease (I12.9) with HTN urgency Chronic Kidney Disease (N18.3) Stage 3 with ? mg proteinuria (R80.9) likely due to DM/HTN Anemia (D64.9), severe pHTN with severe TR. Plan No acute need for renal replacement therapy at this time. anticipate spontaneous and gradual renal recovery pt had cholecystotomy tube placement today by IR 06/04/18. gall bladder surgery was deferred. pulmonary following Hypertension control with meds as ordered. Maintain hemodynamics stable. Avoid hypotension. hold ACEI/ARB due to recent DORIS Monitor Input/Output, daily weights and renal function with basic metabolic panel cardiology, ID surgery following supplement lytes as needed Dose meds/antibiotics for reduced GFR. Avoid fleets enema/magnesium based laxatives. Avoid nephrotoxins/NSAIDs/ iodinated contrast (unless needed emergently) Glycemic control Further work up/management as per primary team Thanks for allowing me to participate in care of your patient. Will follow patient with you. Please call if any Qs. had d/w team Dr Ruiz Choi Office: [phone] Chief Complaint; cholecytitis Reason for consult: Acute Kidney Injury HPI: Pt is a 67 F with hx of diabetes Mellitus ( years), hypertension (years) CVA presented with complaints of abdomen pain and found to have Acute cholecysitis. also with severe pHTN with severe TR. Denies OTC/herbal meds or NSAIDs No recent iodinated contrast exposure. No obvious episodes of low BP but noted fluctuations. episode of bp in 200+ noted pt not aware about kidney disease in past. baseline cr 1.0-1.4 likely reporesent underlying CKD 3 ROS: Cardiovascular: No chest pain. Pulmonary: denies shortness of breath Gastrointestinal: denies abdominal pain No nausea. No vomiting. Genitourinary: No pain while urinating. Denies blood in urine. All other negative except as mentioned in HPI Physical Examination: General Appearance: Comfortable, in no acute respiratory distress, co-operative . better appearing. on high flow o2 Vitals reviewed and noted as below Head; Atraumatic, normocephalic ENT: no ulcers no thrush. Tongue is midline. Oropharynx: no rash or ulcers. EYES: Rt eye unable to see. Eye muscles and extraocular movement intact. Sclera is anicteric. Neck; supple no lymphadenopathy, no thyromegaly or bruit Lungs: Normal respiratory rate/effort. Breath sounds reduced at Rt base Heart: Normal rate. s1s2 normal. No rub or gallop. Extremities: no edema. No varicose veins Neurological: Patient is alert, awake and oriented. speech impaired due to stroke hx Skin: Warm and dry. Normal turgor. No rash. Palpitation: Normal elasticity for age Abdomen: Abdomen is soft/distended. Bowel sounds +. There is no abdominal tenderness, no guarding/rigidity no organomegaly Psych: lack insight and has normal affect/mood MSK: no joint tenderness or swelling. Digits and nails normal, no deformity : kidney or bladder not palpable Labs/imaging reviewed. Past medical history, past surgical history, family history, social history, allergy reviewed and noted as below Family hx: no hx of CKD. Rest non-contributory UA 2+ protein and 1+ blood renal imaging okay on sono but MRCP reported renal atrophy Objective - Vital Signs/Intake and Output Vital Signs (last 24 hours): Temp Pulse Resp BP Pulse Ox 98.2 F 64 20 159/63 H 94 L 06/08/18 07:05 06/08/18 07:05 06/08/18 07:05 06/08/18 07:05 06/08/18 07:05 Intake and Output: 06/08/18 06/08/18 06:59 18:59 Intake Total 1305 Output Total 93 Balance 1212 - Medications Medications: Current Medications Amlodipine Besylate (Norvasc) 10 mg PO DAILY [facility] Last Admin: 06/08/18 09:44 Dose: 10 mg Carvedilol (Coreg) 6.25 mg PO BID [facility] Last Admin: 06/08/18 09:44 Dose: 6.25 mg Dextrose (Dextrose 50% Inj) 0 ml IV STAT PRN; Protocol PRN Reason: Hypoglycemia Protocol Dextrose (Glutose 15) 0 gm PO ONCE PRN; Protocol PRN Reason: Hypoglycemia Protocol Enoxaparin Sodium (Lovenox) 30 mg SC DAILY [facility] Last Admin: 06/08/18 09:45 Dose: 30 mg Glucagon (Glucagen Diagnostic Kit) 0 mg IM STAT PRN; Protocol PRN Reason: Hypoglycemia Protocol Meropenem 1 gm/ Sodium (Chloride) 100 mls @ 100 mls/hr IVPB Q12H [facility]; Protocol Last Admin: 06/08/18 02:45 Dose: 100 mls/hr Metronidazole (Flagyl) 500 mg in 100 mls @ 100 mls/hr IVPB Q8H [facility]; Protocol Last Admin: 06/08/18 05:40 Dose: 100 mls/hr Insulin Human Regular (Novolin R) 0 unit SC ACHS [facility]; Protocol Last Admin: 06/08/18 11:14 Dose: 4 units Losartan Potassium (Cozaar) 12.5 mg PO DAILY [facility] Last Admin: 06/02/18 09:26 Dose: 12.5 mg Morphine Sulfate (Morphine) 2 mg IVP Q4 PRN PRN Reason: Pain, severe (8-10) Last Admin: 06/08/18 03:56 Dose: 2 mg Ondansetron HCl (Zofran Inj) 4 mg IVP Q4H PRN PRN Reason: Nausea/Vomiting Last Admin: 05/31/18 12:44 Dose: 4 mg Saccharomyces Boulardii (Florastor) 250 mg PO BID [facility] Last Admin: 06/08/18 09:48 Dose: 250 mg - Labs Labs: 06/08/18 11:31 06/08/18 11:31 PT 13.1 SECONDS (9.7-12.2) H 06/04/18 06:44 INR 1.2 06/04/18 06:44 APTT 33 SECONDS (21-34) 06/04/18 06:44
--- NOTE | 2018-06-08 14:24 | CP.PCM.PN ---
Subjective - Date & Time of Evaluation Date of Evaluation: 06/08/18 - Subjective Subjective: patient examined today no fever, no diarrhea, no vomiting, no shortness of breath, no dizziness nausea present hx thru translator interpreter still pain drainging from cholestostomy tube present Objective - Vital Signs/Intake and Output Vital Signs (last 24 hours): Temp Pulse Resp BP Pulse Ox 98.2 F 64 20 159/63 H 94 L 06/08/18 07:05 06/08/18 07:05 06/08/18 07:05 06/08/18 07:05 06/08/18 07:05 Intake and Output: 06/08/18 06/08/18 06:59 18:59 Intake Total 1305 Output Total 93 Balance 1212 - Medications Medications: Current Medications Amlodipine Besylate (Norvasc) 10 mg PO DAILY [facility] Last Admin: 06/08/18 09:44 Dose: 10 mg Carvedilol (Coreg) 6.25 mg PO BID [facility] Last Admin: 06/08/18 09:44 Dose: 6.25 mg Dextrose (Dextrose 50% Inj) 0 ml IV STAT PRN; Protocol PRN Reason: Hypoglycemia Protocol Dextrose (Glutose 15) 0 gm PO ONCE PRN; Protocol PRN Reason: Hypoglycemia Protocol Enoxaparin Sodium (Lovenox) 30 mg SC DAILY [facility] Last Admin: 06/08/18 09:45 Dose: 30 mg Glucagon (Glucagen Diagnostic Kit) 0 mg IM STAT PRN; Protocol PRN Reason: Hypoglycemia Protocol Meropenem 1 gm/ Sodium (Chloride) 100 mls @ 100 mls/hr IVPB Q12H [facility]; Protocol Last Admin: 06/08/18 02:45 Dose: 100 mls/hr Metronidazole (Flagyl) 500 mg in 100 mls @ 100 mls/hr IVPB Q8H [facility]; Protocol Last Admin: 06/08/18 05:40 Dose: 100 mls/hr Insulin Human Regular (Novolin R) 0 unit SC ACHS [facility]; Protocol Last Admin: 06/08/18 11:14 Dose: 4 units Losartan Potassium (Cozaar) 12.5 mg PO DAILY [facility] Last Admin: 06/02/18 09:26 Dose: 12.5 mg Morphine Sulfate (Morphine) 2 mg IVP Q4 PRN PRN Reason: Pain, severe (8-10) Last Admin: 06/08/18 03:56 Dose: 2 mg Ondansetron HCl (Zofran Inj) 4 mg IVP Q4H PRN PRN Reason: Nausea/Vomiting Last Admin: 05/31/18 12:44 Dose: 4 mg Saccharomyces Boulardii (Florastor) 250 mg PO BID [facility] Last Admin: 06/08/18 09:48 Dose: 250 mg - Labs Labs: 06/08/18 11:31 06/08/18 11:31 PT 13.1 SECONDS (9.7-12.2) H 06/04/18 06:44 INR 1.2 06/04/18 06:44 APTT 33 SECONDS (21-34) 06/04/18 06:44 - Constitutional Appears: Well - Head Exam Head Exam: ATRAUMATIC, NORMAL INSPECTION, NORMOCEPHALIC - Eye Exam Eye Exam: EOMI, Normal appearance, PERRL Pupil Exam: NORMAL ACCOMODATION, PERRL - ENT Exam ENT Exam: Mucous Membranes Moist, Normal Exam - Neck Exam Neck Exam: Full ROM, Normal Inspection. absent: Lymphadenopathy - Respiratory Exam Respiratory Exam: Decreased Breath Sounds - Cardiovascular Exam Cardiovascular Exam: REGULAR RHYTHM, +S1, +S2 - GI/Abdominal Exam GI & Abdominal Exam: Soft, Diminished Bowel Sounds - Rectal Exam Rectal Exam: Deferred - Neurological Exam Neurological Exam: Oriented x3 Assessment and Plan (1) Abdominal pain Status: Acute (2) Cholecystitis Status: Acute (3) Nausea Status: Acute (4) CVA, old, dysarthria Status: Acute (5) Contusion Status: Acute (6) Hyperglycemia Status: Acute (7) Ischemic stroke Status: Acute (8) Slurring of speech Status: Acute (9) Toothache Status: Acute (10) UTI (urinary tract infection) Status: Acute (11) Diabetes mellitus Status: Chronic (12) Hyperlipidemia Status: Chronic (13) Hypertension Status: Chronic - Assessment and Plan (Free Text) Plan: Patient still have a lot of drainage coming out although afebrile Blood pressure 159/63 Patient still on IV meropenem and IV metronidazole WBC still high 15.6, 9.5 Patient had mild nausea, history obtained through translator interpreter Will check the LFT in the morning medications reviewed vitals reviewed labs reviewed coreg cozaar dextrose 50% inj flagyl florastor glucagen diagnostic kit glutose 15 lovenox meropenem moorphine norvasc novolin R zofran inj Cholecystitis s/p cholecystostomy tube placement POD #1 - Cholecystostomy tube drained about 20 cc on placement - Bile fluid sent for culture, with results pending - Will trend LFTs in am Blood Cx (05/30/18): No GTD x 2 Urine Cx (05/30/18): No growth Body Fluid Culture: No growth tax credit leasing consultant, Dr. Dorsey Morphine 2mg IV Q4H PRN severe pain Zofran 4mg IVP PRN N/V ID information resource consultant, Dr. Alanis Merrem 1gm Q12H [facility] (start 05/30/18, Day 5) --> continue till 06/15/18 Metronidazole 500mg q8h (start 06/07/18) --> continue till 06/15/18 - D/C Vancomycin 1gm IV Q12H (Start 05/31; Received 3 days) GI information resource consultant, Dr. Gomez - Pt for lap kleber - signed off DORIS Cr 2.4 on AM labs; previous baseline 1.6 Likely due to ATN from sepsis vs prerenal from volume loss per Dr Post Hold Losartan Nephro, Dr. Choi is consulted Pleural effusion CXR 06/03/18: elevated right hemidiaphragm, possible small right pleural eff usion. Consider possibily of subpulmonic pleural effusion CXR (06/02/18): Moderate right pleural effusion, trace left pleural effusion. Interval right basal compressive atelectasis. Cardiomegaly. Increased pulm venous congestion Pro BNP elevated on admission. will repeat value Pulm Consult: Dr. Duenas - per Dr. Duenas Small bilateral pleural effusion and does not need thoracentesis Diabetes HgbA1c is 8.6 ISS HTN (poorly controlled) Hold Losartan Start Amlodipine 10mg Start Coreg 6.25mg PO BID PPX Will consider restarting VTE prophylaxis if no plan for procedure GI: not indicated at this time
[2018-06-09 00:05] VITALS: RESP 20
[2018-06-09] MEDS: Meropenem 1 GM in Sodium Chloride 0.9% 100 ML IVPB SCH ×2 (01:44→13:06)
[2018-06-09] MEDS: metroNIDAZOLE IV 500 mg/100 ml 500 MG/100 ML BAG IVPB SCH ×3 (05:40→22:12)
[2018-06-09] MEDS: (Novolin R) Insulin Human Regular 100 units/ml vial SC SCH ×4 (07:50→22:10)
[2018-06-09] MEDS: Enoxaparin 30 mg Syringe SC SCH (09:45)
[2018-06-09] MEDS: Saccharomyces Boulardi 250 mg Cap PO SCH ×2 (09:45→17:06)
--- NOTE | 2018-06-09 10:33 | CP.PCM.PN ---
<Kenia Johnston - Last Filed: 06/09/18 13:02> Subjective - Date & Time of Evaluation Date of Evaluation: 06/09/18 Time of Evaluation: 10:30 - Subjective Subjective: Pulmonary Progress note for Dr. Duenas's service Patient was seen and examined at bedside. Patient complains of epigastric pain. She says the pain is mild, and intermittent. Patient says her diarrhea is improving. She is also passing a lot of gas. Patient is tolerating nasal cannula. She denies sob, chest pain, and pedal edema. Objective - Vital Signs/Intake and Output Vital Signs (last 24 hours): Temp Pulse Resp BP Pulse Ox 98.5 F 69 20 138/65 98 06/09/18 00:00 06/09/18 00:00 06/09/18 00:00 06/09/18 00:00 06/09/18 00:00 Intake and Output: 06/09/18 06/09/18 06:59 18:59 Intake Total 500 Output Total 151 Balance 349 - Medications Medications: Current Medications Amlodipine Besylate (Norvasc) 10 mg PO DAILY [facility] Last Admin: 06/09/18 09:45 Dose: 10 mg Carvedilol (Coreg) 6.25 mg PO BID [facility] Last Admin: 06/09/18 09:45 Dose: 6.25 mg Dextrose (Dextrose 50% Inj) 0 ml IV STAT PRN; Protocol PRN Reason: Hypoglycemia Protocol Dextrose (Glutose 15) 0 gm PO ONCE PRN; Protocol PRN Reason: Hypoglycemia Protocol Enoxaparin Sodium (Lovenox) 30 mg SC DAILY [facility] Last Admin: 06/09/18 09:45 Dose: 30 mg Glucagon (Glucagen Diagnostic Kit) 0 mg IM STAT PRN; Protocol PRN Reason: Hypoglycemia Protocol Meropenem 1 gm/ Sodium (Chloride) 100 mls @ 100 mls/hr IVPB Q12H [facility]; Protocol Last Admin: 06/09/18 01:44 Dose: 100 mls/hr Metronidazole (Flagyl) 500 mg in 100 mls @ 100 mls/hr IVPB Q8H [facility]; Protocol Last Admin: 06/09/18 05:40 Dose: 100 mls/hr Insulin Human Regular (Novolin R) 0 unit SC ACHS [facility]; Protocol Last Admin: 06/09/18 07:50 Dose: Not Given Losartan Potassium (Cozaar) 12.5 mg PO DAILY [facility] Last Admin: 06/02/18 09:26 Dose: 12.5 mg Morphine Sulfate (Morphine) 2 mg IVP Q4 PRN PRN Reason: Pain, severe (8-10) Last Admin: 06/09/18 10:08 Dose: 2 mg Ondansetron HCl (Zofran Inj) 4 mg IVP Q4H PRN PRN Reason: Nausea/Vomiting Last Admin: 05/31/18 12:44 Dose: 4 mg Saccharomyces Boulardii (Florastor) 250 mg PO BID [facility] Last Admin: 06/09/18 09:45 Dose: 250 mg - Labs Labs: 06/08/18 11:31 06/08/18 11:31 PT 13.1 SECONDS (9.7-12.2) H 06/04/18 06:44 INR 1.2 06/04/18 06:44 APTT 33 SECONDS (21-34) 06/04/18 06:44 - Constitutional Appears: Toxic, No Acute Distress, Chronically Ill - Head Exam Head Exam: NORMAL INSPECTION - Eye Exam Eye Exam: EOMI, Normal appearance - ENT Exam ENT Exam: Mucous Membranes Moist, Normal Exam - Neck Exam Neck Exam: Normal Inspection - Respiratory Exam Respiratory Exam: Decreased Breath Sounds, NORMAL BREATHING PATTERN - Cardiovascular Exam Cardiovascular Exam: REGULAR RHYTHM, +S1, +S2 - GI/Abdominal Exam GI & Abdominal Exam: Soft, Normal Bowel Sounds. absent: Distended, Firm, Guarding, Rigid, Rebound Additional comments: choleostomy drain patent - Rectal Exam Rectal Exam: Deferred - Extremities Exam Extremities Exam: absent: Calf Tenderness, Pedal Edema Additional comments: R sided weakness - Neurological Exam Neurological Exam: Oriented x3 - Psychiatric Exam Psychiatric exam: Normal Mood - Skin Skin Exam: Intact, Normal Color - Additional Findings Additional findings: slurring of speech. Assessment and Plan - Assessment and Plan (Free Text) Assessment: 67 year old female with a PMH of DM, HTN, CVA with R sided weakness who presented for abdominal pain associated with nausea and vomiting. S/P cholecystectomy. Pulm was consulted for pleural effusions. Plan: A: Bilateral Pleural effusion P: Pleural effusions too small to drain, does not need thoracentesis tolerating 2L nasal cannula Further management per primary team. PGY-1 Kenia Osorio d/w Dr. Duenas <Carlos Duenas - Last Filed: 06/09/18 16:00> Objective - Vital Signs/Intake and Output Vital Signs (last 24 hours): Temp Pulse Resp BP Pulse Ox 98.2 F 64 20 141/58 L 95 06/09/18 15:00 06/09/18 15:00 06/09/18 15:00 06/09/18 15:00 06/09/18 15:00 Intake and Output: 06/09/18 06/09/18 06:59 18:59 Intake Total 500 550 Output Total 151 201 Balance 349 349 - Medications Medications: Current Medications Amlodipine Besylate (Norvasc) 10 mg PO DAILY [facility] Last Admin: 06/09/18 09:45 Dose: 10 mg Carvedilol (Coreg) 6.25 mg PO BID [facility] Last Admin: 06/09/18 09:45 Dose: 6.25 mg Dextrose (Dextrose 50% Inj) 0 ml IV STAT PRN; Protocol PRN Reason: Hypoglycemia Protocol Dextrose (Glutose 15) 0 gm PO ONCE PRN; Protocol PRN Reason: Hypoglycemia Protocol Glucagon (Glucagen Diagnostic Kit) 0 mg IM STAT PRN; Protocol PRN Reason: Hypoglycemia Protocol Heparin Sodium (Porcine) (Heparin) 5,000 units SC Q8 [facility] Meropenem 1 gm/ Sodium (Chloride) 100 mls @ 100 mls/hr IVPB Q12H [facility]; Protocol Last Admin: 06/09/18 13:06 Dose: 100 mls/hr Metronidazole (Flagyl) 500 mg in 100 mls @ 100 mls/hr IVPB Q8H [facility]; Protocol Last Admin: 06/09/18 13:53 Dose: 100 mls/hr Insulin Human Regular (Novolin R) 0 unit SC ACHS [facility]; Protocol Last Admin: 06/09/18 11:41 Dose: 4 units Losartan Potassium (Cozaar) 12.5 mg PO DAILY [facility] Last Admin: 06/02/18 09:26 Dose: 12.5 mg Morphine Sulfate (Morphine) 2 mg IVP Q4 PRN PRN Reason: Pain, severe (8-10) Last Admin: 06/09/18 10:08 Dose: 2 mg Ondansetron HCl (Zofran Inj) 4 mg IVP Q4H PRN PRN Reason: Nausea/Vomiting Last Admin: 05/31/18 12:44 Dose: 4 mg Saccharomyces Boulardii (Florastor) 250 mg PO BID [facility] Last Admin: 06/09/18 09:45 Dose: 250 mg - Labs Labs: 06/09/18 13:40 06/09/18 13:40 PT 13.1 SECONDS (9.7-12.2) H 06/04/18 06:44 INR 1.2 06/04/18 06:44 APTT 33 SECONDS (21-34) 06/04/18 06:44 Assessment and Plan (1) Pleural effusion Status: Acute (2) DORIS (acute kidney injury) Status: Acute Attending/Attestation - Attestation I have personally seen and examined this patient.: Yes I have fully participated in the care of the patient.: Yes I have reviewed all pertinent clinical information, including history, physical exam and plan: Yes Notes (Text): 06/09/18 15:59 Patient seen and examined Assessment and plan as per resident note No need for thoracentesis
--- NOTE | 2018-06-09 11:41 | CP.PCM.PN ---
Subjective - Date & Time of Evaluation Date of Evaluation: 06/09/18 Time of Evaluation: 09:10 - Subjective Subjective: Medicine note (Dr. Harjinder Post's service ) Patient was seen and examined at bedside as she was resting comfortably in bed. Patient states that she is doing okay and denies any acute issues or complaints. Patient does have slight at the insertion of tube drainage of her gall bladder. Patient denies symptoms of fever, chills, nausea, vomiting, chest pain, palpitations, shortness of breath, dizziness, bowel changes or urinary symptoms. Patient is able to tolerate PO diet. Objective - Vital Signs/Intake and Output Vital Signs (last 24 hours): Temp Pulse Resp BP Pulse Ox 98.5 F 69 20 145/64 94 L 06/09/18 00:00 06/09/18 10:00 06/09/18 00:00 06/09/18 10:00 06/09/18 10:00 Intake and Output: 06/09/18 06/09/18 06:59 18:59 Intake Total 500 Output Total 151 Balance 349 - Medications Medications: Current Medications Amlodipine Besylate (Norvasc) 10 mg PO DAILY [facility] Last Admin: 06/09/18 09:45 Dose: 10 mg Carvedilol (Coreg) 6.25 mg PO BID [facility] Last Admin: 06/09/18 09:45 Dose: 6.25 mg Dextrose (Dextrose 50% Inj) 0 ml IV STAT PRN; Protocol PRN Reason: Hypoglycemia Protocol Dextrose (Glutose 15) 0 gm PO ONCE PRN; Protocol PRN Reason: Hypoglycemia Protocol Enoxaparin Sodium (Lovenox) 30 mg SC DAILY [facility] Last Admin: 06/09/18 09:45 Dose: 30 mg Glucagon (Glucagen Diagnostic Kit) 0 mg IM STAT PRN; Protocol PRN Reason: Hypoglycemia Protocol Meropenem 1 gm/ Sodium (Chloride) 100 mls @ 100 mls/hr IVPB Q12H [facility]; Protocol Last Admin: 06/09/18 01:44 Dose: 100 mls/hr Metronidazole (Flagyl) 500 mg in 100 mls @ 100 mls/hr IVPB Q8H [facility]; Protocol Last Admin: 06/09/18 05:40 Dose: 100 mls/hr Insulin Human Regular (Novolin R) 0 unit SC ACHS [facility]; Protocol Last Admin: 06/09/18 07:50 Dose: Not Given Losartan Potassium (Cozaar) 12.5 mg PO DAILY [facility] Last Admin: 06/02/18 09:26 Dose: 12.5 mg Morphine Sulfate (Morphine) 2 mg IVP Q4 PRN PRN Reason: Pain, severe (8-10) Last Admin: 06/09/18 10:08 Dose: 2 mg Ondansetron HCl (Zofran Inj) 4 mg IVP Q4H PRN PRN Reason: Nausea/Vomiting Last Admin: 05/31/18 12:44 Dose: 4 mg Saccharomyces Boulardii (Florastor) 250 mg PO BID [facility] Last Admin: 06/09/18 09:45 Dose: 250 mg - Labs Labs: 06/08/18 11:31 06/08/18 11:31 PT 13.1 SECONDS (9.7-12.2) H 06/04/18 06:44 INR 1.2 06/04/18 06:44 APTT 33 SECONDS (21-34) 06/04/18 06:44 - Constitutional Appears: No Acute Distress - Head Exam Head Exam: ATRAUMATIC, NORMAL INSPECTION - Eye Exam Eye Exam: EOMI, Normal appearance - ENT Exam ENT Exam: Mucous Membranes Moist - Respiratory Exam Respiratory Exam: Clear to Ausculation Bilateral, NORMAL BREATHING PATTERN. absent: Rales, Rhonchi, Wheezes - Cardiovascular Exam Cardiovascular Exam: REGULAR RHYTHM, +S1, +S2. absent: Murmur - GI/Abdominal Exam GI & Abdominal Exam: Soft, Normal Bowel Sounds Additional comments: S/p Percutaneous cholecystostomy tube placement (06/04/18) and currently with green/brown liquid drainage - Extremities Exam Extremities Exam: Normal Inspection. absent: Calf Tenderness, Pedal Edema - Neurological Exam Neurological Exam: Alert, Awake, Oriented x3 - Psychiatric Exam Psychiatric exam: Normal Affect - Skin Skin Exam: Normal Color Assessment and Plan (1) Cholecystitis Assessment & Plan: Consultations: - IR, Dr. Johnson - General Surgery, Dr. Dorsey * Plans for surgery in 4-6 weeks - IDDr [facility] Imaging/labs: - Obstructive series (05/30/18): Elevation of the right hemidiaphragm. The right lung appears smaller than the left. Mild constipation. - Abdomen US (05/30/18): Distended gallbladder contains sludge and possible small gallstones associated with diffuse wall thickening. The possibility of acute cholecystitis should be considered. The common bile duct measures 4.5 millimeter. -Abdomen/Pelvis CT (05/30/18): The gallbladder is markedly distended. Suspicious for gallbladder wall thickening and pericholecystic inflammatory changes. The possibility of acute cholecystitis should be excluded. The common bile duct is not dilated. Findings suspicious for acute cholecystitis. If indicated further assessment by ultrasound may be obtained. - Blood Cx (05/30/18): No growth x 5 days - Urine Cx (05/30/18): No growth - Body Fluid Culture: No growth - Leukocytosis mildly improving, will continue to monitor with am labs - Liver enzymes WNL (06/19/18) Medications: * Merrem 1gm Q12H [facility] (start 05/30/18, Day 5) --> continue till 06/15/18 * Metronidazole 500mg q8h (start 06/07/18) --> continue till 06/15/18 * D/C Vancomycin 1gm IV Q12H (Start 05/31; Received 3 days) * Florastor 250mg PO BID * Morphine 2mg IV Q4H PRN severe pain * Zofran 4mg IVP PRN N/V Status: Acute (2) Pleural effusion Assessment & Plan: Consultation: - Commercial Loan Coordinator, Dr. Duneas---> Help appreciated * As per Dr. Duenas Small bilateral pleural effusion and does not need thoracentesis Imaging: Chest CT (06/05/18): Small to medium size right-sided effusion associated with mild atelectasis in the right lower and to a lesser degree right upper lobes. Mild subsegmental atelectasis right middle lobe. Trace left-sided effusion with mild left lower lobe atelectasis. There is also some minor atelectasis in the left medial upper lung field as well. In situ drainage catheter right lateral abdomen extending into the lateral margin of the gallbladder fossa. It is unclear whether the pigtail component resides extrinsic to the gallbladder wall or is within the lumen of the gallbladder. Probable layering small gallbladder calculi. There is small amount of perihepatic ascites. CXR 06/05/18: Interval mild improved aeration in the right out lower lobe with persistent atelectasis/pneumonia. Small right pleural effusion. CXR 06/03/18: elevated right hemidiaphragm, possible small right pleural effusion. Consider possibily of subpulmonic pleural effusion CXR (06/02/18): Moderate right pleural effusion, trace left pleural effusion. Interval right basal compressive atelectasis. Cardiomegaly. Increased pulm venous congestion Status: Acute (3) DORIS (acute kidney injury) Assessment & Plan: Consultation: Nephrology, Dr. Choi----> Help appreciated * Management as per recommendation Status: Acute (4) Diabetes mellitus Assessment & Plan: HgbA1C (06/03/2018): 8.6 Accuchecks ISS- High dose Hypoglycemia protocol Status: Acute (5) Uncontrolled hypertension Assessment & Plan: Improving Hold Losartan due to DORIS Start Amlodipine 10mg Start Coreg 6.25mg PO BID Status: Acute (6) Prophylactic measure Assessment & Plan: GI: Not indicated at this time DVT: Heparin 5,000 units SC Q8H All plans and management discussed with Dr. Harjinder Post Status: Acute
--- NOTE | 2018-06-09 12:04 | CP.PCM.PN ---
Subjective - Date & Time of Evaluation Date of Evaluation: 06/09/18 Time of Evaluation: 12:01 - Subjective Subjective: Nephrology Consultation Note: Assessment: stable acute cholecystitis Acute Kidney Injury (N17.9) likely hemodynamic due to sepsis/ATN, BP fluctuations, limited oral intake Diabetic chronic Kidney Disease (E11.22) Hypertensive Chronic Kidney Disease (I12.9) with HTN urgency Chronic Kidney Disease (N18.3) Stage 3 with ? mg proteinuria (R80.9) likely due to DM/HTN Anemia (D64.9), severe pHTN with severe TR. Plan No acute need for renal replacement therapy at this time. anticipate spontaneous and gradual renal recovery pt had cholecystotomy tube placement by IR 06/04/18. gall bladder surgery was deferred. Can proceed from renal perspective as BP controlled, renal fxn stable. pulmonary following. respi status improved. Hypertension control with meds as ordered. Maintain hemodynamics stable. Avoid hypotension. hold ACEI/ARB due to recent DORIS, consider to resume soon. Monitor Input/Output, daily weights and renal function with basic metabolic panel cardiology, ID surgery following supplement lytes as needed Dose meds/antibiotics for reduced GFR. Avoid fleets enema/magnesium based laxatives. Avoid nephrotoxins/NSAIDs/ iodinated contrast (unless needed emergently) Glycemic control Further work up/management as per primary team Thanks for allowing me to participate in care of your patient. Will follow patient with you. Please call if any Qs. had d/w team and daughter Dr Ruiz Choi Office: [phone] Chief Complaint; cholecytitis Reason for consult: Acute Kidney Injury HPI: Pt is a 67 F with hx of diabetes Mellitus ( years), hypertension (years) CVA presented with complaints of abdomen pain and found to have Acute cholecysitis. also with severe pHTN with severe TR. Denies OTC/herbal meds or NSAIDs No recent iodinated contrast exposure. No obvious episodes of low BP but noted fluctuations. episode of bp in 200+ noted pt not aware about kidney disease in past. baseline cr 1.0-1.4 likely reporesent underlying CKD 3 ROS: Cardiovascular: No chest pain. Pulmonary: denies shortness of breath Gastrointestinal: denies abdominal pain No nausea. No vomiting. Genitourinary: No pain while urinating. Denies blood in urine. All other negative except as mentioned in HPI Physical Examination: daughter bedside General Appearance: Comfortable, in no acute respiratory distress, co-operative . better appearing. on o2 via NC Vitals reviewed and noted as below Head; Atraumatic, normocephalic ENT: no ulcers no thrush. Tongue is midline. Oropharynx: no rash or ulcers. EYES: Rt eye unable to see. Eye muscles and extraocular movement intact. Sclera is anicteric. Neck; supple no lymphadenopathy, no thyromegaly or bruit Lungs: Normal respiratory rate/effort. Breath sounds improved at Rt base Heart: Normal rate. s1s2 normal. No rub or gallop. Extremities: no edema. No varicose veins Neurological: Patient is alert, awake and oriented. speech impaired due to strok e hx Skin: Warm and dry. Normal turgor. No rash. Palpitation: Normal elasticity for age Abdomen: Abdomen is soft/distended. Bowel sounds +. There is no abdominal tenderness, no guarding/rigidity no organomegaly Psych: lack insight and has normal affect/mood MSK: no joint tenderness or swelling. Digits and nails normal, no deformity : kidney or bladder not palpable Labs/imaging reviewed. Past medical history, past surgical history, family history, social history, allergy reviewed and noted as below Family hx: no hx of CKD. Rest non-contributory UA 2+ protein and 1+ blood renal imaging okay on sono but MRCP reported renal atrophy Objective - Vital Signs/Intake and Output Vital Signs (last 24 hours): Temp Pulse Resp BP Pulse Ox 98.5 F 69 20 145/64 94 L 06/09/18 00:00 06/09/18 10:00 06/09/18 00:00 06/09/18 10:00 06/09/18 10:00 Intake and Output: 06/09/18 06/09/18 06:59 18:59 Intake Total 500 Output Total 151 Balance 349 - Medications Medications: Current Medications Amlodipine Besylate (Norvasc) 10 mg PO DAILY [facility] Last Admin: 06/09/18 09:45 Dose: 10 mg Carvedilol (Coreg) 6.25 mg PO BID [facility] Last Admin: 06/09/18 09:45 Dose: 6.25 mg Dextrose (Dextrose 50% Inj) 0 ml IV STAT PRN; Protocol PRN Reason: Hypoglycemia Protocol Dextrose (Glutose 15) 0 gm PO ONCE PRN; Protocol PRN Reason: Hypoglycemia Protocol Enoxaparin Sodium (Lovenox) 30 mg SC DAILY [facility] Last Admin: 06/09/18 09:45 Dose: 30 mg Glucagon (Glucagen Diagnostic Kit) 0 mg IM STAT PRN; Protocol PRN Reason: Hypoglycemia Protocol Meropenem 1 gm/ Sodium (Chloride) 100 mls @ 100 mls/hr IVPB Q12H [facility]; Protocol Last Admin: 06/09/18 01:44 Dose: 100 mls/hr Metronidazole (Flagyl) 500 mg in 100 mls @ 100 mls/hr IVPB Q8H [facility]; Protocol Last Admin: 06/09/18 05:40 Dose: 100 mls/hr Insulin Human Regular (Novolin R) 0 unit SC ACHS [facility]; Protocol Last Admin: 06/09/18 11:41 Dose: 4 units Losartan Potassium (Cozaar) 12.5 mg PO DAILY [facility] Last Admin: 06/02/18 09:26 Dose: 12.5 mg Morphine Sulfate (Morphine) 2 mg IVP Q4 PRN PRN Reason: Pain, severe (8-10) Last Admin: 06/09/18 10:08 Dose: 2 mg Ondansetron HCl (Zofran Inj) 4 mg IVP Q4H PRN PRN Reason: Nausea/Vomiting Last Admin: 05/31/18 12:44 Dose: 4 mg Saccharomyces Boulardii (Florastor) 250 mg PO BID [facility] Last Admin: 06/09/18 09:45 Dose: 250 mg - Labs Labs: 06/08/18 11:31 06/08/18 11:31 PT 13.1 SECONDS (9.7-12.2) H 06/04/18 06:44 INR 1.2 06/04/18 06:44 APTT 33 SECONDS (21-34) 06/04/18 06:44
[2018-06-09 14:27] LABS: EOS % 4.1 % (0.0-4.0); HEMOGLOBIN 10.1 g/dL (11.0-16.0); LYMPH % 7.5 % (20.0-40.0); MEAN CELL VOLUME 80.6 fL (81.0-99.0); MEAN CORPUSCULAR HEMOGLOBIN 25.4 pg (27.0-31.0); MEAN CORPUSCULAR HGB CONC 31.5 g/dL (33.0-37.0); MEAN PLATELET VOLUME 8.8 fL (7.2-11.7); MONO % 3.9 % (0.0-10.0); NEUT % 84.3 % (50.0-75.0); PLATELET COUNT 540 K/uL (130-400); RBC 3.97 Mil/uL (3.80-5.20); WHITE BLOOD COUNT 18.3 K/uL (4.8-10.8)
[2018-06-09 14:28] LABS: BASO # 0.4 K/uL (0.0-0.2); BASO % 0.2 % (0.0-2.0); EOS # 3.7 K/uL (0.0-0.7); LYMPH # 8.7 K/uL (1.0-4.3); MONO # 3.8 K/uL (0.0-0.8); NEUT # 83.4 K/uL (1.8-7.0)
[2018-06-09 14:40] LABS: ALB/GLOB RATIO 0.9 (1.0-2.1); ALBUMIN 2.8 g/dL (3.5-5.0); CALCIUM 8.4 mg/dl (8.6-10.4)
[2018-06-09 14:55] LABS: BANDS 3 % (0-2); TOTAL CELLS COUNTED 100
[2018-06-09 14:56] LABS: EOSINOPHIL 1 % (0-4); LYMPHOCYTE 7 % (20-40); MONOCYTE 3 % (0-10); NEUTROPHIL 86 % (50-75)
[2018-06-09 14:57] LABS: ANISOCYTOSIS SLIGHT; PLATELET ESTIMATE INCREASED (NORMAL)
--- NOTE | 2018-06-09 15:44 | CARD ---
APPROVED REPORT Date of service: 05/30/2018 EKG Measurement Heart [id number] <Conclusion> Normal sinus rhythm Normal ECG
--- NOTE | 2018-06-09 18:04 | CP.PCM.PN ---
Subjective - Date & Time of Evaluation Date of Evaluation: 06/09/18 Time of Evaluation: 07:10 - Subjective Subjective: patient seen today no nausea no vomiting no dizziness no fever no diarrhea no shortness of breath Objective - Vital Signs/Intake and Output Vital Signs (last 24 hours): Temp Pulse Resp BP Pulse Ox 98.2 F 64 20 142/62 95 06/09/18 15:00 06/09/18 15:00 06/09/18 15:00 06/09/18 17:08 06/09/18 15:00 Intake and Output: 06/09/18 06/09/18 06:59 18:59 Intake Total 500 550 Output Total 151 201 Balance 349 349 - Medications Medications: Current Medications Amlodipine Besylate (Norvasc) 10 mg PO DAILY [facility] Last Admin: 06/09/18 09:45 Dose: 10 mg Carvedilol (Coreg) 6.25 mg PO BID [facility] Last Admin: 06/09/18 17:06 Dose: 6.25 mg Dextrose (Dextrose 50% Inj) 0 ml IV STAT PRN; Protocol PRN Reason: Hypoglycemia Protocol Dextrose (Glutose 15) 0 gm PO ONCE PRN; Protocol PRN Reason: Hypoglycemia Protocol Glucagon (Glucagen Diagnostic Kit) 0 mg IM STAT PRN; Protocol PRN Reason: Hypoglycemia Protocol Heparin Sodium (Porcine) (Heparin) 5,000 units SC Q8 [facility] Meropenem 1 gm/ Sodium (Chloride) 100 mls @ 100 mls/hr IVPB Q12H [facility]; Protocol Last Admin: 06/09/18 13:06 Dose: 100 mls/hr Metronidazole (Flagyl) 500 mg in 100 mls @ 100 mls/hr IVPB Q8H [facility]; Protocol Last Admin: 06/09/18 13:53 Dose: 100 mls/hr Insulin Human Regular (Novolin R) 0 unit SC ACHS [facility]; Protocol Last Admin: 06/09/18 17:05 Dose: 2 units Losartan Potassium (Cozaar) 12.5 mg PO DAILY [facility] Last Admin: 06/02/18 09:26 Dose: 12.5 mg Morphine Sulfate (Morphine) 2 mg IVP Q4 PRN PRN Reason: Pain, severe (8-10) Last Admin: 06/09/18 10:08 Dose: 2 mg Ondansetron HCl (Zofran Inj) 4 mg IVP Q4H PRN PRN Reason: Nausea/Vomiting Last Admin: 05/31/18 12:44 Dose: 4 mg Saccharomyces Tradii (Florastor) 250 mg PO BID [facility] Last Admin: 06/09/18 17:06 Dose: 250 mg - Labs Labs: 06/09/18 13:40 06/09/18 13:40 PT 13.1 SECONDS (9.7-12.2) H 06/04/18 06:44 INR 1.2 06/04/18 06:44 APTT 33 SECONDS (21-34) 06/04/18 06:44 - Constitutional Appears: Well - Head Exam Head Exam: ATRAUMATIC, NORMAL INSPECTION, NORMOCEPHALIC - Eye Exam Eye Exam: EOMI, Normal appearance, PERRL Pupil Exam: NORMAL ACCOMODATION, PERRL - ENT Exam ENT Exam: Mucous Membranes Moist, Normal Exam - Neck Exam Neck Exam: Full ROM, Normal Inspection. absent: Lymphadenopathy - Respiratory Exam Respiratory Exam: Decreased Breath Sounds - Cardiovascular Exam Cardiovascular Exam: REGULAR RHYTHM, +S1, +S2 - GI/Abdominal Exam GI & Abdominal Exam: Soft, Diminished Bowel Sounds - Rectal Exam Rectal Exam: Deferred - Neurological Exam Neurological Exam: Oriented x3 Assessment and Plan (1) Abdominal pain Status: Acute (2) Cholecystitis Status: Acute (3) Nausea Status: Acute (4) CVA, old, dysarthria Status: Acute (5) Contusion Status: Acute (6) Hyperglycemia Status: Acute (7) Ischemic stroke Status: Acute (8) Slurring of speech Status: Acute (9) Toothache Status: Acute (10) UTI (urinary tract infection) Status: Acute (11) Diabetes mellitus Status: Chronic (12) Hyperlipidemia Status: Chronic (13) Hypertension Status: Chronic - Assessment and Plan (Free Text) Plan: coreg cozaar dextrose 50% inj flagyl florastor glucagen diagnostic kit glutose 15 lovenox meropenem moorphine norvasc novolin R zofran inj medications reviewed labs reviewed vitals reviewed
[2018-06-09] MEDS ORDERED: Iohexol 240 (50 ml) PO ONE (19:30)
[2018-06-10] MEDS: Meropenem 1 GM in Sodium Chloride 0.9% 100 ML IVPB SCH ×2 (01:19→14:59)
[2018-06-10] MEDS: metroNIDAZOLE IV 500 mg/100 ml 500 MG/100 ML BAG IVPB SCH ×3 (05:26→22:15)
[2018-06-10 07:40] LABS: BASO # 0.1 K/uL (0.0-0.2); BASO % 0.4 % (0.0-2.0); EOS # 0.8 K/uL (0.0-0.7); EOS % 4.7 % (0.0-4.0); HEMOGLOBIN 9.5 g/dL (11.0-16.0); LYMPH # 1.9 K/uL (1.0-4.3); LYMPH % 11.8 % (20.0-40.0); MEAN CELL VOLUME 80.5 fL (81.0-99.0); MEAN CORPUSCULAR HEMOGLOBIN 26.5 pg (27.0-31.0); MEAN PLATELET VOLUME 9.1 fL (7.2-11.7); MONO # 0.7 K/uL (0.0-0.8); MONO % 4.5 % (0.0-10.0); NEUT # 12.9 K/uL (1.8-7.0); NEUT % 78.6 % (50.0-75.0); RBC 3.58 Mil/uL (3.80-5.20); RED CELL DISTRIBUTION WIDTH 16.1 % (11.5-14.5); WHITE BLOOD COUNT 16.4 K/uL (4.8-10.8)
[2018-06-10 08:12] LABS: ALB/GLOB RATIO 0.9 (1.0-2.1); ALBUMIN 2.8 g/dL (3.5-5.0); CALCIUM 8.1 mg/dl (8.6-10.4)
[2018-06-10 08:19] LABS: SQUAMOUS EPITHIAL 5 /hpf (0-5); URINE BACTERIA RARE (<OCC); URINE BILIRUBIN NEGATIVE (NEGATIVE); URINE BLOOD 1+ (NEGATIVE); URINE CLARITY Hazy (Clear); URINE COLOR Yellow (YELLOW); URINE GLUCOSE (UA) NORMAL (Normal); URINE LEUKOCYTE ESTERASE 1+ Leu/uL (Negative); URINE PROTEIN 1+ mg/dL (NEGATIVE); URINE UROBILINOGEN NORMAL mg/dL (0.2-1.0)
[2018-06-10] MEDS: (Novolin R) Insulin Human Regular 100 units/ml vial SC SCH ×4 (08:30→22:16)
--- NOTE | 2018-06-10 09:20 | CT ---
Date of service: 06/09/2018 PROCEDURE: CT Chest, Abdomen and Pelvis with oral contrast and without intravenous contrast HISTORY: persistent, elevating leukocytosis COMPARISON: CT chest without contrast from 06/05/[address] abdomen and pelvis without contrast from 05/30/2018. TECHNIQUE: Helical CT scan of the chest, abdomen and pelvis was performed without administration of intravenous contrast. Oral contrast was administered. Coronal and sagittal reformatted images were obtained. Radiation dose: Total exam DLP = 1370.41 mGy-cm. This CT exam was performed using one or more of the following dose reduction techniques: Automated exposure control, adjustment of the mA and/or kV according to patient size, and/or use of iterative reconstruction technique. FINDINGS: CT CHEST WITHOUT CONTRAST: LUNGS: Again seen is multifocal subsegmental atelectasis in the lungs. MEDIASTINUM: There is mild cardiomegaly. No pericardial effusion. The aorta is normal in caliber. There are atherosclerotic coronary artery and aortic calcifications present. LYMPH NODES: Unremarkable. PLEURA: No change in moderate right and small left pleural effusions. No pneumothorax. BONES: Unremarkable. OTHER FINDINGS: None. CT ABDOMEN AND PELVIS: LIVER: Normal in size. No gross lesion or ductal dilatation. GALLBLADDER AND BILE DUCTS: The gallbladder is distended and there are significant pericholecystic inflammatory changes and pericholecystic fluid. A cholecystostomy tube remains in the fundus of the gallbladder with small amount of intraluminal air which is likely related to the drain. PANCREAS: There is diffuse atrophy of the pancreas. No gross lesion or ductal dilatation. SPLEEN: The spleen is normal in size. ADRENALS: Normal in size. No discrete nodule. KIDNEYS AND URETERS: There is bilateral renal cortical atrophy and nonspecific perinephric fat stranding. No evidence of hydronephrosis or nephrolithiasis VASCULATURE: There are aortic atherosclerotic calcifications present. No aortic aneurysm. BOWEL: The small bowel loops are normal in caliber. Colon is normal in caliber. No bowel wall thickening or obstruction. APPENDIX: No inflammatory changes in the right lower quadrant. PERITONEUM: There is small perihepatic ascites. No free air. LYMPH NODES: Unremarkable. No enlarged lymph nodes. BLADDER: Well distended and grossly normal in appearance. REPRODUCTIVE: The uterus is normal in size with myometrial calcifications. BONES: No acute fracture. There is advanced degenerative disc disease at L3-4 and L4-5. OTHER FINDINGS: There is moderate anasarca in the abdomen and pelvis. IMPRESSION: 1. Moderate right and small left pleural effusions. Multifocal atelectasis in the lungs. 2. Percutaneous cholecystostomy tube is seen in the fundus of the gallbladder. The gallbladder remains distended with significant surrounding inflammatory changes. Intraluminal air is likely related to surgical intervention. 3. Small perihepatic ascites. A preliminary report was provided by [facility].
--- NOTE | 2018-06-10 09:43 | CP.PCM.PN ---
<Kenia Johnston - Last Filed: 06/10/18 14:10> Subjective - Date & Time of Evaluation Date of Evaluation: 06/10/18 Time of Evaluation: 09:41 - Subjective Subjective: Pulmonary Progress note for Dr. Duenas's service Patient was seen and examined at bedside. Patient complains of mild epigastric pain. Patient says her diarrhea has resolved. Patient is tolerating nasal cannula. She denies sob, chest pain, and pedal edema. Objective - Vital Signs/Intake and Output Vital Signs (last 24 hours): Temp Pulse Resp BP Pulse Ox 98.5 F 63 20 145/72 96 06/10/18 08:54 06/10/18 08:54 06/10/18 08:54 06/10/18 08:54 06/10/18 08:54 Intake and Output: 06/10/18 06/10/18 06:59 18:59 Intake Total 810 Output Total 210 Balance 600 - Medications Medications: Current Medications Amlodipine Besylate (Norvasc) 10 mg PO DAILY [facility] Last Admin: 06/09/18 09:45 Dose: 10 mg Carvedilol (Coreg) 6.25 mg PO BID [facility] Last Admin: 06/09/18 17:06 Dose: 6.25 mg Dextrose (Dextrose 50% Inj) 0 ml IV STAT PRN; Protocol PRN Reason: Hypoglycemia Protocol Dextrose (Glutose 15) 0 gm PO ONCE PRN; Protocol PRN Reason: Hypoglycemia Protocol Furosemide (Lasix) 40 mg PO DAILY [facility] Stop: 06/12/18 10:01 Glucagon (Glucagen Diagnostic Kit) 0 mg IM STAT PRN; Protocol PRN Reason: Hypoglycemia Protocol Heparin Sodium (Porcine) (Heparin) 5,000 units SC Q8 [facility] Last Admin: 06/10/18 05:26 Dose: 5,000 units Meropenem 1 gm/ Sodium (Chloride) 100 mls @ 100 mls/hr IVPB Q12H [facility]; Protocol Last Admin: 06/10/18 01:19 Dose: 100 mls/hr Metronidazole (Flagyl) 500 mg in 100 mls @ 100 mls/hr IVPB Q8H [facility]; Protocol Last Admin: 06/10/18 05:26 Dose: 100 mls/hr Insulin Human Regular (Novolin R) 0 unit SC ACHS [facility]; Protocol Last Admin: 06/10/18 08:30 Dose: 2 units Losartan Potassium (Cozaar) 12.5 mg PO DAILY [facility] Last Admin: 06/02/18 09:26 Dose: 12.5 mg Morphine Sulfate (Morphine) 2 mg IVP Q4 PRN PRN Reason: Pain, severe (8-10) Last Admin: 06/10/18 05:41 Dose: 2 mg Ondansetron HCl (Zofran Inj) 4 mg IVP Q4H PRN PRN Reason: Nausea/Vomiting Last Admin: 05/31/18 12:44 Dose: 4 mg Saccharomyces Boulardii (Florastor) 250 mg PO BID [facility] Last Admin: 06/09/18 17:06 Dose: 250 mg - Labs Labs: 06/10/18 07:29 06/10/18 07:29 PT 13.1 SECONDS (9.7-12.2) H 06/04/18 06:44 INR 1.2 06/04/18 06:44 APTT 33 SECONDS (21-34) 06/04/18 06:44 - Constitutional Appears: Well, Non-toxic, No Acute Distress - Head Exam Head Exam: NORMAL INSPECTION - Eye Exam Eye Exam: Normal appearance - ENT Exam ENT Exam: Mucous Membranes Moist, Normal Exam - Neck Exam Neck Exam: Normal Inspection - Respiratory Exam Respiratory Exam: Decreased Breath Sounds, NORMAL BREATHING PATTERN - Cardiovascular Exam Cardiovascular Exam: REGULAR RHYTHM - GI/Abdominal Exam GI & Abdominal Exam: Soft, Normal Bowel Sounds. absent: Distended, Tenderness Additional comments: cholestomy drain was full. Ask nursing staff to drain it. - Rectal Exam Rectal Exam: Deferred - Extremities Exam Extremities Exam: absent: Calf Tenderness, Pedal Edema Additional comments: Weak R side - Neurological Exam Neurological Exam: Oriented x3 - Psychiatric Exam Psychiatric exam: Normal Mood - Skin Skin Exam: Intact, Normal Color - Additional Findings Additional findings: slurring of speech Assessment and Plan - Assessment and Plan (Free Text) Assessment: 67 year old female with a PMH of DM, HTN, CVA with R sided weakness who presented for abdominal pain associated with nausea and vomiting. S/P cholec ystectomy. Pulm was consulted for pleural effusions. Plan: A: Bilateral Pleural effusion P: Pleural effusions too small to drain, and patient is unable to sit up for long p eriods of time. Pt does not need thoracentesis. Tolerating 2L nasal cannula Patient asymptomatic of SOB. Repeat CT on 4/16 showed moderate right pleural effusion and small left pleural effusion. Recommend conservative management. Further management per primary team. PGY-1 Kenia Preston Case d/w Dr. Duenas <Carlos Duenas S - Last Filed: 06/10/18 14:32> Objective - Vital Signs/Intake and Output Vital Signs (last 24 hours): Temp Pulse Resp BP Pulse Ox 98.5 F 63 20 145/72 96 06/10/18 08:54 06/10/18 08:54 06/10/18 08:54 06/10/18 10:27 06/10/18 08:54 Intake and Output: 06/10/18 06/10/18 06:59 18:59 Intake Total 810 680 Output Total 210 200 Balance 600 480 - Medications Medications: Current Medications Amlodipine Besylate (Norvasc) 10 mg PO DAILY [facility] Last Admin: 06/10/18 10:24 Dose: 10 mg Carvedilol (Coreg) 6.25 mg PO BID [facility] Last Admin: 06/10/18 10:24 Dose: 6.25 mg Dextrose (Dextrose 50% Inj) 0 ml IV STAT PRN; Protocol PRN Reason: Hypoglycemia Protocol Dextrose (Glutose 15) 0 gm PO ONCE PRN; Protocol PRN Reason: Hypoglycemia Protocol Epoetin Kody (Procrit) 4,000 unit SC MWF [facility] Stop: 06/17/18 09:01 Last Admin: 06/10/18 10:53 Dose: 4,000 unit Furosemide (Lasix) 40 mg PO DAILY [facility] Stop: 06/12/18 10:01 Last Admin: 06/10/18 10:27 Dose: 40 mg Glucagon (Glucagen Diagnostic Kit) 0 mg IM STAT PRN; Protocol PRN Reason: Hypoglycemia Protocol Heparin Sodium (Porcine) (Heparin) 5,000 units SC Q8 [facility] Last Admin: 06/10/18 14:05 Dose: 5,000 units Meropenem 1 gm/ Sodium (Chloride) 100 mls @ 100 mls/hr IVPB Q12H [facility]; Protocol Last Admin: 06/10/18 01:19 Dose: 100 mls/hr Metronidazole (Flagyl) 500 mg in 100 mls @ 100 mls/hr IVPB Q8H [facility]; Protocol Last Admin: 06/10/18 13:59 Dose: 100 mls/hr Insulin Human Regular (Novolin R) 0 unit SC ACHS [facility]; Protocol Last Admin: 06/10/18 12:02 Dose: Not Given Losartan Potassium (Cozaar) 12.5 mg PO DAILY [facility] Last Admin: 06/02/18 09:26 Dose: 12.5 mg Morphine Sulfate (Morphine) 2 mg IVP Q4 PRN PRN Reason: Pain, severe (8-10) Last Admin: 06/10/18 05:41 Dose: 2 mg Ondansetron HCl (Zofran Inj) 4 mg IVP Q4H PRN PRN Reason: Nausea/Vomiting Last Admin: 05/31/18 12:44 Dose: 4 mg Saccharomyces Boulardii (Florastor) 250 mg PO BID [facility] Last Admin: 06/10/18 10:24 Dose: 250 mg - Labs Labs: 06/10/18 07:29 06/10/18 07:29 PT 13.1 SECONDS (9.7-12.2) H 06/04/18 06:44 INR 1.2 06/04/18 06:44 APTT 33 SECONDS (21-34) 06/04/18 06:44 Assessment and Plan (1) Pleural effusion Status: Acute (2) DORIS (acute kidney injury) Status: Acute Attending/Attestation - Attestation I have personally seen and examined this patient.: Yes I have fully participated in the care of the patient.: Yes I have reviewed all pertinent clinical information, including history, physical exam and plan: Yes Notes (Text): 06/10/18 14:32 Patient seen and examined Continue present treatment for now lying comfortably in no distress Follow-up if necessary
[2018-06-10] MEDS ORDERED: Epoetin Alfa Dialysis 40000 UNIT/ml Inj SC SCH (10:00)
[2018-06-10] MEDS: Saccharomyces Boulardi 250 mg Cap PO SCH ×2 (10:24→17:10)
--- NOTE | 2018-06-10 10:38 | CP.PCM.PN ---
Subjective - Date & Time of Evaluation Date of Evaluation: 06/10/18 Time of Evaluation: 09:20 - Subjective Subjective: Medicine progress note ( Dr. Harjinder Post's service) Patient was seen and examined at bedside as she was resting in bed comfortably in no acute distress. Patient's daughter was also present at bedside, who assisted with translation. Patient states that she is doing well and denies any acute issues or complaints. Patient continues to tolerate PO diet without any issues and denies any symptoms of fever, chills, nausea, chest pain, palpita tions, shortness of breath, bowel changes or urinary symptoms. Patient does admits to very mild abdominal discomfort, appropriately as she as S/P perc. cholecystostomy tube placement (06/04/18). Overall, patient is doing well. Objective - Vital Signs/Intake and Output Vital Signs (last 24 hours): Temp Pulse Resp BP Pulse Ox 98.5 F 63 20 145/72 96 06/10/18 08:54 06/10/18 08:54 06/10/18 08:54 06/10/18 10:27 06/10/18 08:54 Intake and Output: 06/10/18 06/10/18 06:59 18:59 Intake Total 810 Output Total 210 Balance 600 - Medications Medications: Current Medications Amlodipine Besylate (Norvasc) 10 mg PO DAILY [facility] Last Admin: 06/10/18 10:24 Dose: 10 mg Carvedilol (Coreg) 6.25 mg PO BID [facility] Last Admin: 06/10/18 10:24 Dose: 6.25 mg Dextrose (Dextrose 50% Inj) 0 ml IV STAT PRN; Protocol PRN Reason: Hypoglycemia Protocol Dextrose (Glutose 15) 0 gm PO ONCE PRN; Protocol PRN Reason: Hypoglycemia Protocol Epoetin Kody (Procrit) 4,000 unit SC MWF [facility] Stop: 06/17/18 09:01 Furosemide (Lasix) 40 mg PO DAILY [facility] Stop: 06/12/18 10:01 Last Admin: 06/10/18 10:27 Dose: 40 mg Glucagon (Glucagen Diagnostic Kit) 0 mg IM STAT PRN; Protocol PRN Reason: Hypoglycemia Protocol Heparin Sodium (Porcine) (Heparin) 5,000 units SC Q8 [facility] Last Admin: 06/10/18 05:26 Dose: 5,000 units Meropenem 1 gm/ Sodium (Chloride) 100 mls @ 100 mls/hr IVPB Q12H [facility]; Protocol Last Admin: 06/10/18 01:19 Dose: 100 mls/hr Metronidazole (Flagyl) 500 mg in 100 mls @ 100 mls/hr IVPB Q8H [facility]; Protocol Last Admin: 06/10/18 05:26 Dose: 100 mls/hr Insulin Human Regular (Novolin R) 0 unit SC ACHS [facility]; Protocol Last Admin: 06/10/18 08:30 Dose: 2 units Losartan Potassium (Cozaar) 12.5 mg PO DAILY [facility] Last Admin: 06/02/18 09:26 Dose: 12.5 mg Morphine Sulfate (Morphine) 2 mg IVP Q4 PRN PRN Reason: Pain, severe (8-10) Last Admin: 06/10/18 05:41 Dose: 2 mg Ondansetron HCl (Zofran Inj) 4 mg IVP Q4H PRN PRN Reason: Nausea/Vomiting Last Admin: 05/31/18 12:44 Dose: 4 mg Saccharomyces Boulardii (Florastor) 250 mg PO BID [facility] Last Admin: 06/10/18 10:24 Dose: 250 mg - Labs Labs: 06/10/18 07:29 06/10/18 07:29 PT 13.1 SECONDS (9.7-12.2) H 06/04/18 06:44 INR 1.2 06/04/18 06:44 APTT 33 SECONDS (21-34) 06/04/18 06:44 - Constitutional Appears: Non-toxic, No Acute Distress - Head Exam Head Exam: ATRAUMATIC - Eye Exam Eye Exam: EOMI - ENT Exam ENT Exam: Mucous Membranes Moist - Respiratory Exam Respiratory Exam: Clear to Ausculation Bilateral, NORMAL BREATHING PATTERN. absent: Prolonged Expiratory Phase, Rhonchi, Wheezes, Respiratory Distress - Cardiovascular Exam Cardiovascular Exam: REGULAR RHYTHM, +S1, +S2. absent: Tachycardia, Murmur - GI/Abdominal Exam GI & Abdominal Exam: Soft, Normal Bowel Sounds. absent: Tenderness Additional comments: S/p Percutaneous cholecystostomy tube placement (06/04/18) and currently with brown liquid drainage ( about 20-25cc of drainage) - Extremities Exam Extremities Exam: Normal Inspection. absent: Calf Tenderness, Pedal Edema - Back Exam Back Exam: NORMAL INSPECTION - Neurological Exam Neurological Exam: Alert, Awake, Oriented x3 - Psychiatric Exam Psychiatric exam: Normal Affect - Skin Skin Exam: Normal Color Assessment and Plan (1) Cholecystitis Assessment & Plan: Consultations: - IR, Dr. Johnson - General Surgery, Dr. Dorsey * Plans for surgery in 4-6 weeks - ID, Annabelle Haro Imaging/labs: - Obstructive series (05/30/18): Elevation of the right hemidiaphragm. The right lung appears smaller than the left. Mild constipation. - Abdomen US (05/30/18): Distended gallbladder contains sludge and possible small gallstones associated with diffuse wall thickening. The possibility of acute ch olecystitis should be considered. The common bile duct measures 4.5 millimeter. -Abdomen/Pelvis CT (05/30/18): The gallbladder is markedly distended. Suspicious for gallbladder wall thickening and pericholecystic inflammatory changes. The possibility of acute cholecystitis should be excluded. The common bile duct is not dilated. Findings suspicious for acute cholecystitis. If indicated further assessment by ultrasound may be obtained. - Blood Cx (05/30/18): No growth x 5 days - Urine Cx (05/30/18): No growth - Body Fluid Culture: No growth - Leukocytosis mildly improving, will continue to monitor with am labs - Liver enzymes WNL (06/19/18) Medications: * Merrem 1gm Q12H [facility] (start 05/30/18, Day 5) --> continue till 06/15/18 * Metronidazole 500mg q8h (start 06/07/18) --> continue till 06/15/18 * D/C Vancomycin 1gm IV Q12H (Start 05/31; Received 3 days) * Florastor 250mg PO BID * Morphine 2mg IV Q4H PRN severe pain * Zofran 4mg IVP PRN N/V Status: Acute (2) Pleural effusion Assessment & Plan: Consultation: - [employer] Operator, Dr. Duenas---> Help appreciated * As per Dr. Duenas Small bilateral pleural effusion and does not need thoracentesis Imaging: Chest CT (06/05/18): Small to medium size right-sided effusion associated with mild atelectasis in the right lower and to a lesser degree right upper lobes. Mild subsegmental atelectasis right middle lobe. Trace left-sided effusion with mild left lower lobe atelectasis. There is also some minor atelectasis in the left medial upper lung field as well. In situ drainage catheter right lateral abdomen extending into the lateral margin of the gallbladder fossa. It is unclear whether the pigtail component resides extrinsic to the gallbladder wall or is within the lumen of the gallbladder. Probable layering small gallbladder calculi. There is small amount of perihepatic ascites. CXR 06/05/18: Interval mild improved aeration in the right out lower lobe with persistent atelectasis/pneumonia. Small right pleural effusion. CXR 06/03/18: elevated right hemidiaphragm, possible small right pleural effusion. Consider possibily of subpulmonic pleural effusion CXR (06/02/18): Moderate right pleural effusion, trace left pleural effusion. Interval right basal compressive atelectasis. Cardiomegaly. Increased pulm venous congestion Status: Acute (3) DORIS (acute kidney injury) Assessment & Plan: Stable Consultation: Nephrology, Dr. Choi----> Help appreciated * Management as per recommendation Continue to monitor with am labs Status: Acute (4) Anemia Assessment & Plan: Stable Possibly secondary to kidney disease Procrit 4,000 units M,W,F Status: Acute (5) Diabetes mellitus Assessment & Plan: HgbA1C (06/03/2018): 8.6 Accuchecks ISS- High dose Hypoglycemia protocol Status: Acute (6) Uncontrolled hypertension Assessment & Plan: Improving Hold Losartan due to DORIS Start Amlodipine 10mg Start Coreg 6.25mg PO BID Status: Acute (7) Positive urinary cytology Assessment & Plan: Asymptomatic UA (05/30/18): - Nitrate negative, LE (-) and WBC (2) UA (06/10/18): - Nitrate negative, LE (+1) and WBC (7) f/U urine culture Medication: Currently, Merrem 1gm Q12H [facility] (start 05/30/18, Day 5) --> continue till 06/15/18 Status: Acute (8) Prophylactic measure Assessment & Plan: GI: Not indicated at this time DVT: Heparin 5,000 units SC Q8H Disposition: Awaiting leukocytosis to normalize and then can be possibly discharged All plans and management discussed with Dr. Harjinder Post Status: Acute
--- NOTE | 2018-06-10 15:26 | CP.PCM.PN ---
Subjective - Date & Time of Evaluation Date of Evaluation: 06/10/18 Time of Evaluation: 15:26 - Subjective Subjective: Nephrology Consultation Note: Assessment: stable acute cholecystitis Acute Kidney Injury (N17.9) likely hemodynamic due to sepsis/ATN, BP fluctuations, limited oral intake Diabetic chronic Kidney Disease (E11.22) Hypertensive Chronic Kidney Disease (I12.9) with HTN urgency Chronic Kidney Disease (N18.3) Stage 3 with ? mg proteinuria (R80.9) likely due to DM/HTN Anemia (D64.9), severe pHTN with severe TR. Plan No acute need for renal replacement therapy at this time. anticipate spontaneous and gradual renal recovery pt had cholecystotomy tube placement by IR 06/04/18. gall bladder surgery was deferred. Can proceed from renal perspective as BP controlled, renal fxn stable. pulmonary following. respi status improved. Hypertension control with meds as ordered. Maintain hemodynamics stable. Avoid hypotension. hold ACEI/ARB due to recent DORIS, consider to resume soon. Monitor Input/Output, daily weights and renal function with basic metabolic panel cardiology, ID surgery following supplement lytes as needed epogen and lasix for few days added Dose meds/antibiotics for reduced GFR. Avoid fleets enema/magnesium based laxat romina. Avoid nephrotoxins/NSAIDs/ iodinated contrast (unless needed emergently) Glycemic control Further work up/management as per primary team Thanks for allowing me to participate in care of your patient. Will follow patient with you. Please call if any Qs. had d/w team and daughter Dr Ruiz Choi Office: [phone] Chief Complaint; cholecytitis Reason for consult: Acute Kidney Injury HPI: Pt is a 67 F with hx of diabetes Mellitus ( years), hypertension (years) CVA presented with complaints of abdomen pain and found to have Acute cholecysitis. also with severe pHTN with severe TR. Denies OTC/herbal meds or NSAIDs No recent iodinated contrast exposure. No obvious episodes of low BP but noted fluctuations. episode of bp in 200+ noted pt not aware about kidney disease in past. baseline cr 1.0-1.4 likely reporesent underlying CKD 3 ROS: Cardiovascular: No chest pain. Pulmonary: denies shortness of breath Gastrointestinal: denies abdominal pain No nausea. No vomiting. Genitourinary: No pain while urinating. Denies blood in urine. All other negative except as mentioned in HPI Physical Examination: daughter bedside General Appearance: Comfortable, in no acute respiratory distress, co-operative . better appearing. on o2 via NC Vitals reviewed and noted as below Head; Atraumatic, normocephalic ENT: no ulcers no thrush. Tongue is midline. Oropharynx: no rash or ulcers. EYES: Rt eye unable to see. Eye muscles and extraocular movement intact. Sclera is anicteric. Neck; supple no lymphadenopathy, no thyromegaly or bruit Lungs: Normal respiratory rate/effort. Breath sounds improved at Rt base Heart: Normal rate. s1s2 normal. No rub or gallop. Extremities: no edema. No varicose veins Neurological: Patient is alert, awake and oriented. speech impaired due to stroke hx Skin: Warm and dry. Normal turgor. No rash. Palpitation: Normal elasticity for age Abdomen: Abdomen is soft/distended. Bowel sounds +. There is no abdominal te nderness, no guarding/rigidity no organomegaly Psych: lack insight and has normal affect/mood MSK: no joint tenderness or swelling. Digits and nails normal, no deformity : kidney or bladder not palpable Labs/imaging reviewed. Past medical history, past surgical history, family history, social history, allergy reviewed and noted as below Family hx: no hx of CKD. Rest non-contributory UA 2+ protein and 1+ blood renal imaging okay on sono but MRCP reported renal atrophy Objective - Vital Signs/Intake and Output Vital Signs (last 24 hours): Temp Pulse Resp BP Pulse Ox 98.5 F 63 20 145/72 96 06/10/18 08:54 06/10/18 08:54 06/10/18 08:54 06/10/18 10:27 06/10/18 08:54 Intake and Output: 06/10/18 06/10/18 06:59 18:59 Intake Total 810 680 Output Total 210 200 Balance 600 480 - Medications Medications: Current Medications Amlodipine Besylate (Norvasc) 10 mg PO DAILY [facility] Last Admin: 06/10/18 10:24 Dose: 10 mg Carvedilol (Coreg) 6.25 mg PO BID [facility] Last Admin: 06/10/18 10:24 Dose: 6.25 mg Dextrose (Dextrose 50% Inj) 0 ml IV STAT PRN; Protocol PRN Reason: Hypoglycemia Protocol Dextrose (Glutose 15) 0 gm PO ONCE PRN; Protocol PRN Reason: Hypoglycemia Protocol Epoetin Kody (Procrit) 4,000 unit SC MWF [facility] Stop: 06/17/18 09:01 Last Admin: 06/10/18 10:53 Dose: 4,000 unit Furosemide (Lasix) 40 mg PO DAILY [facility] Stop: 06/12/18 10:01 Last Admin: 06/10/18 10:27 Dose: 40 mg Glucagon (Glucagen Diagnostic Kit) 0 mg IM STAT PRN; Protocol PRN Reason: Hypoglycemia Protocol Heparin Sodium (Porcine) (Heparin) 5,000 units SC Q8 [facility] Last Admin: 06/10/18 14:05 Dose: 5,000 units Meropenem 1 gm/ Sodium (Chloride) 100 mls @ 100 mls/hr IVPB Q12H [facility]; Protocol Last Admin: 06/10/18 14:59 Dose: 100 mls/hr Metronidazole (Flagyl) 500 mg in 100 mls @ 100 mls/hr IVPB Q8H [facility]; Protocol Last Admin: 06/10/18 13:59 Dose: 100 mls/hr Insulin Human Regular (Novolin R) 0 unit SC ACHS [facility]; Protocol Last Admin: 06/10/18 12:02 Dose: Not Given Losartan Potassium (Cozaar) 12.5 mg PO DAILY [facility] Last Admin: 06/02/18 09:26 Dose: 12.5 mg Morphine Sulfate (Morphine) 2 mg IVP Q4 PRN PRN Reason: Pain, severe (8-10) Last Admin: 06/10/18 05:41 Dose: 2 mg Ondansetron HCl (Zofran Inj) 4 mg IVP Q4H PRN PRN Reason: Nausea/Vomiting Last Admin: 05/31/18 12:44 Dose: 4 mg Saccharomyces Boulardii (Florastor) 250 mg PO BID [facility] Last Admin: 06/10/18 10:24 Dose: 250 mg - Labs Labs: 06/10/18 07:29 06/10/18 07:29 PT 13.1 SECONDS (9.7-12.2) H 06/04/18 06:44 INR 1.2 06/04/18 06:44 APTT 33 SECONDS (21-34) 06/04/18 06:44
--- NOTE | 2018-06-10 16:29 | CP.PCM.PN ---
Subjective - Date & Time of Evaluation Date of Evaluation: 06/10/18 Time of Evaluation: 09:00 - Subjective Subjective: seen on rounds NAD Objective - Vital Signs/Intake and Output Vital Signs (last 24 hours): Temp Pulse Resp BP Pulse Ox 98.3 F 65 20 132/65 90 L 06/10/18 15:58 06/10/18 15:58 06/10/18 15:58 06/10/18 15:58 06/10/18 15:58 Intake and Output: 06/10/18 06/10/18 06:59 18:59 Intake Total 810 680 Output Total 210 200 Balance 600 480 - Medications Medications: Current Medications Amlodipine Besylate (Norvasc) 10 mg PO DAILY [facility] Last Admin: 06/10/18 10:24 Dose: 10 mg Carvedilol (Coreg) 6.25 mg PO BID [facility] Last Admin: 06/10/18 10:24 Dose: 6.25 mg Dextrose (Dextrose 50% Inj) 0 ml IV STAT PRN; Protocol PRN Reason: Hypoglycemia Protocol Dextrose (Glutose 15) 0 gm PO ONCE PRN; Protocol PRN Reason: Hypoglycemia Protocol Epoetin Kody (Procrit) 4,000 unit SC MWF [facility] Stop: 06/17/18 09:01 Last Admin: 06/10/18 10:53 Dose: 4,000 unit Furosemide (Lasix) 40 mg PO DAILY [facility] Stop: 06/12/18 10:01 Last Admin: 06/10/18 10:27 Dose: 40 mg Glucagon (Glucagen Diagnostic Kit) 0 mg IM STAT PRN; Protocol PRN Reason: Hypoglycemia Protocol Heparin Sodium (Porcine) (Heparin) 5,000 units SC Q8 [facility] Last Admin: 06/10/18 14:05 Dose: 5,000 units Meropenem 1 gm/ Sodium (Chloride) 100 mls @ 100 mls/hr IVPB Q12H [facility]; Protocol Last Admin: 06/10/18 14:59 Dose: 100 mls/hr Metronidazole (Flagyl) 500 mg in 100 mls @ 100 mls/hr IVPB Q8H [facility]; Protocol Last Admin: 06/10/18 13:59 Dose: 100 mls/hr Insulin Human Regular (Novolin R) 0 unit SC ACHS [facility]; Protocol Last Admin: 06/10/18 12:02 Dose: Not Given Losartan Potassium (Cozaar) 12.5 mg PO DAILY [facility] Last Admin: 06/02/18 09:26 Dose: 12.5 mg Morphine Sulfate (Morphine) 2 mg IVP Q4 PRN PRN Reason: Pain, severe (8-10) Last Admin: 06/10/18 05:41 Dose: 2 mg Ondansetron HCl (Zofran Inj) 4 mg IVP Q4H PRN PRN Reason: Nausea/Vomiting Last Admin: 05/31/18 12:44 Dose: 4 mg Saccharomyces Boulardii (Florastor) 250 mg PO BID [facility] Last Admin: 06/10/18 10:24 Dose: 250 mg - Labs Labs: 06/10/18 07:29 06/10/18 07:29 PT 13.1 SECONDS (9.7-12.2) H 06/04/18 06:44 INR 1.2 06/04/18 06:44 APTT 33 SECONDS (21-34) 06/04/18 06:44 - Constitutional Appears: Non-toxic, Chronically Ill - Head Exam Head Exam: NORMOCEPHALIC - Eye Exam Eye Exam: absent: Scleral icterus - ENT Exam ENT Exam: Mucous Membranes Dry - Neck Exam Neck Exam: absent: Lymphadenopathy - Respiratory Exam Respiratory Exam: Decreased Breath Sounds - Cardiovascular Exam Cardiovascular Exam: REGULAR RHYTHM - GI/Abdominal Exam GI & Abdominal Exam: Distended, Soft - Rectal Exam Rectal Exam: Deferred - Exam Exam: NORMAL INSPECTION - Extremities Exam Extremities Exam: absent: Pedal Edema - Back Exam Back Exam: absent: CVA tenderness (L), CVA tenderness (R) - Neurological Exam Neurological Exam: Alert, Awake, Oriented x3 - Psychiatric Exam Psychiatric exam: Depressed - Skin Skin Exam: Dry Assessment and Plan (1) Abdominal pain Status: Acute (2) Cholecystitis Status: Acute (3) CVA, old, dysarthria Status: Acute (4) Cholangitis Status: Acute (5) Diabetes mellitus Status: Chronic (6) Hyperlipidemia Status: Chronic (7) Hypertension Status: Chronic (8) DORIS (acute kidney injury) Status: Acute - Assessment and Plan (Free Text) Assessment: IV rx renewed will follow
--- NOTE | 2018-06-10 19:03 | CP.PCM.PN ---
Subjective - Date & Time of Evaluation Date of Evaluation: 06/10/18 - Subjective Subjective: patient seen and examined today no nausea no vomiting no fever no diarrhea no shortness of breath no dizziness Objective - Vital Signs/Intake and Output Vital Signs (last 24 hours): Temp Pulse Resp BP Pulse Ox 98.3 F 65 20 132/65 90 L 06/10/18 15:58 06/10/18 15:58 06/10/18 15:58 06/10/18 15:58 06/10/18 15:58 Intake and Output: 06/10/18 06/11/18 18:59 06:59 Intake Total 680 Output Total 200 Balance 480 - Medications Medications: Current Medications Amlodipine Besylate (Norvasc) 10 mg PO DAILY [facility] Last Admin: 06/10/18 10:24 Dose: 10 mg Carvedilol (Coreg) 6.25 mg PO BID [facility] Last Admin: 06/10/18 17:10 Dose: 6.25 mg Dextrose (Dextrose 50% Inj) 0 ml IV STAT PRN; Protocol PRN Reason: Hypoglycemia Protocol Dextrose (Glutose 15) 0 gm PO ONCE PRN; Protocol PRN Reason: Hypoglycemia Protocol Epoetin Kody (Procrit) 4,000 unit SC MWF [facility] Stop: 06/17/18 09:01 Last Admin: 06/10/18 10:53 Dose: 4,000 unit Furosemide (Lasix) 40 mg PO DAILY [facility] Stop: 06/12/18 10:01 Last Admin: 06/10/18 10:27 Dose: 40 mg Glucagon (Glucagen Diagnostic Kit) 0 mg IM STAT PRN; Protocol PRN Reason: Hypoglycemia Protocol Heparin Sodium (Porcine) (Heparin) 5,000 units SC Q8 [facility] Last Admin: 06/10/18 14:05 Dose: 5,000 units Meropenem 1 gm/ Sodium (Chloride) 100 mls @ 100 mls/hr IVPB Q12H [facility]; Protocol Last Admin: 06/10/18 14:59 Dose: 100 mls/hr Metronidazole (Flagyl) 500 mg in 100 mls @ 100 mls/hr IVPB Q8H [facility]; Protocol Last Admin: 06/10/18 13:59 Dose: 100 mls/hr Insulin Human Regular (Novolin R) 0 unit SC ACHS [facility]; Protocol Last Admin: 06/10/18 16:30 Dose: 2 units Losartan Potassium (Cozaar) 12.5 mg PO DAILY [facility] Last Admin: 06/02/18 09:26 Dose: 12.5 mg Morphine Sulfate (Morphine) 2 mg IVP Q4 PRN PRN Reason: Pain, severe (8-10) Last Admin: 06/10/18 05:41 Dose: 2 mg Ondansetron HCl (Zofran Inj) 4 mg IVP Q4H PRN PRN Reason: Nausea/Vomiting Last Admin: 05/31/18 12:44 Dose: 4 mg Saccharomyces Boulardii (Florastor) 250 mg PO BID [facility] Last Admin: 06/10/18 17:10 Dose: 250 mg - Labs Labs: 06/10/18 07:29 06/10/18 07:29 PT 13.1 SECONDS (9.7-12.2) H 06/04/18 06:44 INR 1.2 06/04/18 06:44 APTT 33 SECONDS (21-34) 06/04/18 06:44 Assessment and Plan (1) Abdominal pain Status: Acute (2) Cholecystitis Status: Acute (3) Nausea Status: Acute (4) CVA, old, dysarthria Status: Acute (5) Contusion Status: Acute (6) Hyperglycemia Status: Acute (7) Ischemic stroke Status: Acute (8) Slurring of speech Status: Acute (9) Toothache Status: Acute (10) UTI (urinary tract infection) Status: Acute (11) Diabetes mellitus Status: Chronic (12) Hyperlipidemia Status: Chronic (13) Hypertension Status: Chronic - Assessment and Plan (Free Text) Plan: coreg cozaar dextrose 50% inj flagyl florastor glucagen diagnostic kit glutose 15 lovenox meropenem moorphine norvasc novolin R zofran inj labs reviewed vitals reviwed medications reviewed
[2018-06-11] MEDS: Meropenem 1 GM in Sodium Chloride 0.9% 100 ML IVPB SCH ×2 (01:19→13:53)
[2018-06-11] MEDS: metroNIDAZOLE IV 500 mg/100 ml 500 MG/100 ML BAG IVPB SCH ×3 (05:03→21:35)
[2018-06-11] MEDS: (Novolin R) Insulin Human Regular 100 units/ml vial SC SCH ×4 (08:00→21:35)
[2018-06-11 08:48] LABS: BASO # 0.2 K/uL (0.0-0.2); BASO % 1.1 % (0.0-2.0); EOS # 0.8 K/uL (0.0-0.7); HEMOGLOBIN 9.6 g/dL (11.0-16.0); LYMPH # 2.3 K/uL (1.0-4.3); LYMPH % 13.8 % (20.0-40.0); MEAN CELL VOLUME 79.5 fL (81.0-99.0); MEAN CORPUSCULAR HEMOGLOBIN 26.1 pg (27.0-31.0); MEAN CORPUSCULAR HGB CONC 32.8 g/dL (33.0-37.0); MEAN PLATELET VOLUME 9.1 fL (7.2-11.7); MONO # 0.8 K/uL (0.0-0.8); MONO % 4.7 % (0.0-10.0); NEUT # 12.4 K/uL (1.8-7.0); NEUT % 75.4 % (50.0-75.0); RBC 3.68 Mil/uL (3.80-5.20); RED CELL DISTRIBUTION WIDTH 15.5 % (11.5-14.5); WHITE BLOOD COUNT 16.4 K/uL (4.8-10.8)
[2018-06-11 09:04] LABS: ALB/GLOB RATIO 0.9 (1.0-2.1); CALCIUM 7.8 mg/dl (8.6-10.4)
--- NOTE | 2018-06-11 09:26 | CP.PCM.PN ---
Subjective - Date & Time of Evaluation Date of Evaluation: 06/11/18 - Subjective Subjective: patient examined today no nausea, no vomitig, no diarrhea, no shortness of breath, no fever, no dizziness Objective - Vital Signs/Intake and Output Vital Signs (last 24 hours): Temp Pulse Resp BP Pulse Ox 99.1 F 63 20 127/58 L 96 06/11/18 00:00 06/11/18 00:00 06/11/18 00:00 06/11/18 00:00 06/11/18 00:00 Intake and Output: 06/11/18 06/11/18 06:59 18:59 Intake Total 200 Output Total 100 Balance 100 - Medications Medications: Current Medications Amlodipine Besylate (Norvasc) 10 mg PO DAILY [facility] Last Admin: 06/10/18 10:24 Dose: 10 mg Carvedilol (Coreg) 6.25 mg PO BID [facility] Last Admin: 06/10/18 17:10 Dose: 6.25 mg Dextrose (Dextrose 50% Inj) 0 ml IV STAT PRN; Protocol PRN Reason: Hypoglycemia Protocol Dextrose (Glutose 15) 0 gm PO ONCE PRN; Protocol PRN Reason: Hypoglycemia Protocol Epoetin Kody (Procrit) 4,000 unit SC MWF [facility] Stop: 06/17/18 09:01 Last Admin: 06/10/18 10:53 Dose: 4,000 unit Furosemide (Lasix) 40 mg PO DAILY [facility] Stop: 06/12/18 10:01 Last Admin: 06/10/18 10:27 Dose: 40 mg Glucagon (Glucagen Diagnostic Kit) 0 mg IM STAT PRN; Protocol PRN Reason: Hypoglycemia Protocol Heparin Sodium (Porcine) (Heparin) 5,000 units SC Q8 [facility] Last Admin: 06/11/18 05:06 Dose: 5,000 units Meropenem 1 gm/ Sodium (Chloride) 100 mls @ 100 mls/hr IVPB Q12H [facility]; Protocol Last Admin: 06/11/18 01:19 Dose: 100 mls/hr Metronidazole (Flagyl) 500 mg in 100 mls @ 100 mls/hr IVPB Q8H [facility]; Protocol Last Admin: 06/11/18 05:03 Dose: 100 mls/hr Insulin Human Regular (Novolin R) 0 unit SC ACHS [facility]; Protocol Last Admin: 06/11/18 08:00 Dose: Not Given Losartan Potassium (Cozaar) 12.5 mg PO DAILY [facility] Last Admin: 06/02/18 09:26 Dose: 12.5 mg Morphine Sulfate (Morphine) 2 mg IVP Q4 PRN PRN Reason: Pain, severe (8-10) Last Admin: 06/10/18 05:41 Dose: 2 mg Ondansetron HCl (Zofran Inj) 4 mg IVP Q4H PRN PRN Reason: Nausea/Vomiting Last Admin: 05/31/18 12:44 Dose: 4 mg Saccharomyces Boulardii (Florastor) 250 mg PO BID [facility] Last Admin: 06/10/18 17:10 Dose: 250 mg - Labs Labs: 06/11/18 08:42 06/11/18 08:42 PT 13.1 SECONDS (9.7-12.2) H 06/04/18 06:44 INR 1.2 06/04/18 06:44 APTT 33 SECONDS (21-34) 06/04/18 06:44 - Constitutional Appears: Well - Head Exam Head Exam: ATRAUMATIC, NORMAL INSPECTION, NORMOCEPHALIC - Eye Exam Eye Exam: EOMI, Normal appearance, PERRL Pupil Exam: NORMAL ACCOMODATION, PERRL - ENT Exam ENT Exam: Mucous Membranes Moist, Normal Exam - Neck Exam Neck Exam: Full ROM, Normal Inspection. absent: Lymphadenopathy - Respiratory Exam Respiratory Exam: Decreased Breath Sounds - Cardiovascular Exam Cardiovascular Exam: REGULAR RHYTHM, +S1, +S2 - GI/Abdominal Exam GI & Abdominal Exam: Soft, Diminished Bowel Sounds - Rectal Exam Rectal Exam: Deferred - Neurological Exam Neurological Exam: Oriented x3 Assessment and Plan (1) Abdominal pain Status: Acute (2) Cholecystitis Status: Acute (3) Nausea Status: Acute (4) CVA, old, dysarthria Status: Acute (5) Contusion Status: Acute (6) Hyperglycemia Status: Acute (7) Ischemic stroke Status: Acute (8) Slurring of speech Status: Acute (9) Toothache Status: Acute (10) UTI (urinary tract infection) Status: Acute (11) Diabetes mellitus Status: Chronic (12) Hyperlipidemia Status: Chronic (13) Hypertension Status: Chronic - Assessment and Plan (Free Text) Plan: coreg cozaar dextrose 50% inj flagyl lasix procrit florastor glucagen diagnostic kit glutose 15 lovenox meropenem morphine norvasc heparin novolin R zofran inj patients labs, vitals and medications reviewed
--- NOTE | 2018-06-11 10:13 | CP.PCM.PN ---
Subjective - Date & Time of Evaluation Date of Evaluation: 06/11/18 Time of Evaluation: 08:00 - Subjective Subjective: Medicine Progress Note for Dr. Deepak Post Patient was seen and examined at bedside. Patient states she is dong well and she denies pain. Patient continues to tolerate PO diet without any issues and denies any symptoms of fever, chills, nausea, chest pain, palpitations, shortness of breath, bowel changes or urinary symptoms. Objective - Vital Signs/Intake and Output Vital Signs (last 24 hours): Temp Pulse Resp BP Pulse Ox 99 F 62 20 146/66 96 06/11/18 09:41 06/11/18 09:41 06/11/18 09:41 06/11/18 09:41 06/11/18 09:41 Intake and Output: 06/11/18 06/11/18 06:59 18:59 Intake Total 200 Output Total 100 Balance 100 - Medications Medications: Current Medications Amlodipine Besylate (Norvasc) 10 mg PO DAILY [facility] Last Admin: 06/10/18 10:24 Dose: 10 mg Carvedilol (Coreg) 6.25 mg PO BID [facility] Last Admin: 06/10/18 17:10 Dose: 6.25 mg Dextrose (Dextrose 50% Inj) 0 ml IV STAT PRN; Protocol PRN Reason: Hypoglycemia Protocol Dextrose (Glutose 15) 0 gm PO ONCE PRN; Protocol PRN Reason: Hypoglycemia Protocol Epoetin Kody (Procrit) 4,000 unit SC MWF [facility] Stop: 06/17/18 09:01 Last Admin: 06/10/18 10:53 Dose: 4,000 unit Furosemide (Lasix) 40 mg PO DAILY [facility] Stop: 06/12/18 10:01 Last Admin: 06/10/18 10:27 Dose: 40 mg Glucagon (Glucagen Diagnostic Kit) 0 mg IM STAT PRN; Protocol PRN Reason: Hypoglycemia Protocol Heparin Sodium (Porcine) (Heparin) 5,000 units SC Q8 [facility] Last Admin: 06/11/18 05:06 Dose: 5,000 units Meropenem 1 gm/ Sodium (Chloride) 100 mls @ 100 mls/hr IVPB Q12H [facility]; Protocol Last Admin: 06/11/18 01:19 Dose: 100 mls/hr Metronidazole (Flagyl) 500 mg in 100 mls @ 100 mls/hr IVPB Q8H [facility]; Protocol Last Admin: 06/11/18 05:03 Dose: 100 mls/hr Insulin Human Regular (Novolin R) 0 unit SC ACHS [facility]; Protocol Last Admin: 06/11/18 08:00 Dose: Not Given Losartan Potassium (Cozaar) 12.5 mg PO DAILY [facility] Last Admin: 06/02/18 09:26 Dose: 12.5 mg Morphine Sulfate (Morphine) 2 mg IVP Q4 PRN PRN Reason: Pain, severe (8-10) Last Admin: 06/10/18 05:41 Dose: 2 mg Ondansetron HCl (Zofran Inj) 4 mg IVP Q4H PRN PRN Reason: Nausea/Vomiting Last Admin: 05/31/18 12:44 Dose: 4 mg Saccharomyces Boulardii (Florastor) 250 mg PO BID [facility] Last Admin: 06/10/18 17:10 Dose: 250 mg - Labs Labs: 06/11/18 08:42 06/11/18 08:42 PT 13.1 SECONDS (9.7-12.2) H 06/04/18 06:44 INR 1.2 06/04/18 06:44 APTT 33 SECONDS (21-34) 06/04/18 06:44 - Constitutional Appears: No Acute Distress - Head Exam Head Exam: ATRAUMATIC, NORMAL INSPECTION - Eye Exam Eye Exam: EOMI, Normal appearance - ENT Exam ENT Exam: Mucous Membranes Moist - Respiratory Exam Respiratory Exam: NORMAL BREATHING PATTERN - Cardiovascular Exam Cardiovascular Exam: REGULAR RHYTHM - GI/Abdominal Exam GI & Abdominal Exam: Soft, Normal Bowel Sounds. absent: Tenderness Additional comments: S/p Percutaneous cholecystostomy tube placement (06/04/18) and currently with brown liquid drainage - Extremities Exam Extremities Exam: Normal Inspection - Neurological Exam Neurological Exam: Alert, Awake - Psychiatric Exam Psychiatric exam: Normal Affect - Skin Skin Exam: Normal Color Assessment and Plan - Assessment and Plan (Free Text) Assessment: Cholecystitis s/p cholecystostomy tube placement POD #1 Consultations: - IR, Dr. Johnson - General Surgery, Dr. Dorsey * Plans for surgery in 4-6 weeks - IDDr [facility] Imaging/labs: - Obstructive series (05/30/18): Elevation of the right hemidiaphragm. The right lung appears smaller than the left. Mild constipation. - Abdomen US (05/30/18): Distended gallbladder contains sludge and possible small gallstones associated with diffuse wall thickening. The possibility of acute cholecystitis should be considered. The common bile duct measures 4.5 millimeter. -Abdomen/Pelvis CT (05/30/18): The gallbladder is markedly distended. Suspicious for gallbladder wall thickening and pericholecystic inflammatory changes. The possibility of acute cholecystitis should be excluded. The common bile duct is not dilated. Findings suspicious for acute cholecystitis. If indicated further assessment by ultrasound may be obtained. - Blood Cx (05/30/18): No growth x 5 days - Urine Cx (05/30/18): No growth - Body Fluid Culture: No growth - Leukocytosis mildly improving, will continue to monitor with am labs - Liver enzymes WNL (06/19/18) Medications: * Merrem 1gm Q12H [facility] (start 05/30/18, Day 5) --> continue till 06/15/18 * Metronidazole 500mg q8h (start 06/07/18) --> continue till 06/15/18 * D/C Vancomycin 1gm IV Q12H (Start 05/31; Received 3 days) * Florastor 250mg PO BID * Morphine 2mg IV Q4H PRN severe pain * Zofran 4mg IVP PRN N/V DORIS Stable Consultation: Nephrology, Dr. Choi----> Help appreciated * Management as per recommendation Continue to monitor with am labs Pleural effusion Consultation: - [place], Dr. Duenas---> Help appreciated * As per Dr. Duenas Small bilateral pleural effusion and does not need th oracentesis Imaging: Chest CT (06/05/18): Small to medium size right-sided effusion associated with mild atelectasis in the right lower and to a lesser degree right upper lobes. Mild subsegmental atelectasis right middle lobe. Trace left-sided effusion with mild left lower lobe atelectasis. There is also some minor atelectasis in the left medial upper lung field as well. In situ drainage catheter right lateral abdomen extending into the lateral margin of the gallbladder fossa. It is unclear whether the pigtail component resides extrinsic to the gallbladder wall or is within the lumen of the gallbladder. Probable layering small gallbladder calculi. There is small amount of perihepatic ascites. CXR 06/05/18: Interval mild improved aeration in the right out lower lobe with persistent atelectasis/pneumonia. Small right pleural effusion. CXR 06/03/18: elevated right hemidiaphragm, possible small right pleural effusion. Consider possibily of subpulmonic pleural effusion CXR (06/02/18): Moderate right pleural effusion, trace left pleural effusion. Interval right basal compressive atelectasis. Cardiomegaly. Increased pulm venous congestion Diabetes HgbA1C (06/03/2018): 8.6 Accuchecks ISS- High dose Hypoglycemia protocol HTN (poorly controlled) Improving Hold Losartan due to DORIS Start Amlodipine 10mg Start Coreg 6.25mg PO BID Positive Urinary Cytology Asymptomatic UA (05/30/18): * Nitrate negative, LE (-) and WBC (2) UA (06/10/18): * Nitrate negative, LE (+1) and WBC (7) - f/U urine culture Medication: Currently, Merrem 1gm Q12H [facility] (start 05/30/18, Day 5) --> continue till 06/15/18 PPX GI: Not indicated at this time DVT: Heparin 5,000 units SC Q8H Disposition: Awaiting leukocytosis to normalize and then can be possibly discharged All plans and management discussed with Dr. Harjinder Montanez PGY-2
[2018-06-11] MEDS: Saccharomyces Boulardi 250 mg Cap PO SCH ×2 (10:46→17:23)
--- NOTE | 2018-06-11 14:08 | CP.PCM.PN ---
Subjective - Date & Time of Evaluation Date of Evaluation: 06/11/18 Time of Evaluation: 14:07 - Subjective Subjective: Nephrology Consultation Note: Assessment: stable acute cholecystitis Acute Kidney Injury (N17.9) likely hemodynamic due to sepsis/ATN, BP fluctuations, limited oral intake Diabetic chronic Kidney Disease (E11.22) Hypertensive Chronic Kidney Disease (I12.9) with HTN urgency Chronic Kidney Disease (N18.3) Stage 3 with ? mg proteinuria (R80.9) likely due to DM/HTN Anemia (D64.9), severe pHTN with severe TR. Plan No acute need for renal replacement therapy at this time. anticipate spontaneous and gradual renal recovery pt had cholecystotomy tube placement by IR 06/04/18. gall bladder surgery was deferred. Can proceed from renal perspective as BP controlled, renal fxn stable. pulmonary following. respi status improved. Hypertension control with meds as ordered. Maintain hemodynamics stable. Avoid hypotension. hold ACEI/ARB due to recent DORIS, consider to resume soon. Monitor Input/Output, daily weights and renal function with basic metabolic panel cardiology, ID surgery following supplement lytes as needed epogen and lasix for few days added Dose meds/antibiotics for reduced GFR. Avoid fleets enema/magnesium based laxat romina. Avoid nephrotoxins/NSAIDs/ iodinated contrast (unless needed emergently) Glycemic control Further work up/management as per primary team Thanks for allowing me to participate in care of your patient. Will follow patient with you. Please call if any Qs. had d/w team and daughter Dr Ruiz Choi Office: [phone] Chief Complaint; cholecytitis Reason for consult: Acute Kidney Injury HPI: Pt is a 67 F with hx of diabetes Mellitus ( years), hypertension (years) CVA presented with complaints of abdomen pain and found to have Acute cholecysitis. also with severe pHTN with severe TR. Denies OTC/herbal meds or NSAIDs No recent iodinated contrast exposure. No obvious episodes of low BP but noted fluctuations. episode of bp in 200+ noted pt not aware about kidney disease in past. baseline cr 1.0-1.4 likely reporesent underlying CKD 3 ROS: Cardiovascular: No chest pain. Pulmonary: denies shortness of breath Gastrointestinal: denies abdominal pain No nausea. No vomiting. Genitourinary: No pain while urinating. Denies blood in urine. All other negative except as mentioned in HPI Physical Examination: family bedside General Appearance: Comfortable, in no acute respiratory distress, co-operative . better appearing. on o2 via NC Vitals reviewed and noted as below Head; Atraumatic, normocephalic ENT: no ulcers no thrush. Tongue is midline. Oropharynx: no rash or ulcers. EYES: Rt eye unable to see. Eye muscles and extraocular movement intact. Sclera is anicteric. Neck; supple no lymphadenopathy, no thyromegaly or bruit Lungs: Normal respiratory rate/effort. Breath sounds improved at Rt base Heart: Normal rate. s1s2 normal. No rub or gallop. Extremities: no edema. No varicose veins Neurological: Patient is alert, awake and oriented. speech impaired due to stroke hx Skin: Warm and dry. Normal turgor. No rash. Palpitation: Normal elasticity for age Abdomen: Abdomen is soft/distended. Bowel sounds +. There is no abdominal tend erness, no guarding/rigidity no organomegaly Psych: lack insight and has normal affect/mood MSK: no joint tenderness or swelling. Digits and nails normal, no deformity : kidney or bladder not palpable Labs/imaging reviewed. Past medical history, past surgical history, family history, social history, allergy reviewed and noted as below Family hx: no hx of CKD. Rest non-contributory UA 2+ protein and 1+ blood renal imaging okay on sono but MRCP reported renal atrophy Objective - Vital Signs/Intake and Output Vital Signs (last 24 hours): Temp Pulse Resp BP Pulse Ox 99 F 62 20 146/66 96 06/11/18 09:41 06/11/18 09:41 06/11/18 09:41 06/11/18 10:46 06/11/18 09:41 Intake and Output: 06/11/18 06/11/18 06:59 18:59 Intake Total 200 Output Total 100 Balance 100 - Medications Medications: Current Medications Amlodipine Besylate (Norvasc) 10 mg PO DAILY [facility] Last Admin: 06/11/18 10:46 Dose: 10 mg Carvedilol (Coreg) 6.25 mg PO BID [facility] Last Admin: 06/11/18 10:46 Dose: 6.25 mg Dextrose (Dextrose 50% Inj) 0 ml IV STAT PRN; Protocol PRN Reason: Hypoglycemia Protocol Dextrose (Glutose 15) 0 gm PO ONCE PRN; Protocol PRN Reason: Hypoglycemia Protocol Epoetin Kody (Procrit) 4,000 unit SC MWF [facility] Stop: 06/17/18 09:01 Furosemide (Lasix) 40 mg PO DAILY [facility] Stop: 06/12/18 10:01 Last Admin: 06/11/18 10:46 Dose: 40 mg Glucagon (Glucagen Diagnostic Kit) 0 mg IM STAT PRN; Protocol PRN Reason: Hypoglycemia Protocol Heparin Sodium (Porcine) (Heparin) 5,000 units SC Q8 [facility] Last Admin: 06/11/18 13:53 Dose: 5,000 units Meropenem 1 gm/ Sodium (Chloride) 100 mls @ 100 mls/hr IVPB Q12H [facility]; Protocol Last Admin: 06/11/18 13:53 Dose: 100 mls/hr Metronidazole (Flagyl) 500 mg in 100 mls @ 100 mls/hr IVPB Q8H [facility]; Protocol Last Admin: 06/11/18 05:03 Dose: 100 mls/hr Insulin Human Regular (Novolin R) 0 unit SC ACHS [facility]; Protocol Last Admin: 06/11/18 12:30 Dose: 2 units Losartan Potassium (Cozaar) 12.5 mg PO DAILY [facility] Last Admin: 06/02/18 09:26 Dose: 12.5 mg Morphine Sulfate (Morphine) 2 mg IVP Q4 PRN PRN Reason: Pain, severe (8-10) Last Admin: 06/10/18 05:41 Dose: 2 mg Ondansetron HCl (Zofran Inj) 4 mg IVP Q4H PRN PRN Reason: Nausea/Vomiting Last Admin: 05/31/18 12:44 Dose: 4 mg Saccharomyces Boulardii (Florastor) 250 mg PO BID [facility] Last Admin: 06/11/18 10:46 Dose: 250 mg - Labs Labs: 06/11/18 08:42 06/11/18 08:42 PT 13.1 SECONDS (9.7-12.2) H 06/04/18 06:44 INR 1.2 06/04/18 06:44 APTT 33 SECONDS (21-34) 06/04/18 06:44
[2018-06-12] MEDS: Meropenem 1 GM in Sodium Chloride 0.9% 100 ML IVPB SCH ×2 (02:12→13:37)
[2018-06-12] MEDS: metroNIDAZOLE IV 500 mg/100 ml 500 MG/100 ML BAG IVPB SCH ×3 (05:47→21:36)
[2018-06-12] MEDS: (Novolin R) Insulin Human Regular 100 units/ml vial SC SCH ×4 (07:48→21:33)
[2018-06-12 08:22] LABS: BASO # 0.2 K/uL (0.0-0.2); BASO % 0.9 % (0.0-2.0); EOS # 0.8 K/uL (0.0-0.7); EOS % 4.6 % (0.0-4.0); HEMOGLOBIN 9.8 g/dL (11.0-16.0); LYMPH # 2.2 K/uL (1.0-4.3); LYMPH % 12.8 % (20.0-40.0); MEAN CELL VOLUME 79.7 fL (81.0-99.0); MEAN CORPUSCULAR HGB CONC 32.6 g/dL (33.0-37.0); MEAN PLATELET VOLUME 9.3 fL (7.2-11.7); MONO % 5.7 % (0.0-10.0); NEUT # 13.2 K/uL (1.8-7.0); NRBC % 0.1 % (0.0-2.0); RBC 3.78 Mil/uL (3.80-5.20); RED CELL DISTRIBUTION WIDTH 15.5 % (11.5-14.5); WHITE BLOOD COUNT 17.4 K/uL (4.8-10.8)
[2018-06-12 08:45] LABS: ALB/GLOB RATIO 0.9 (1.0-2.1); ALBUMIN 2.9 g/dL (3.5-5.0); CALCIUM 8.5 mg/dl (8.6-10.4)
[2018-06-12] MEDS ORDERED: EPOETIN ALFA 4,000 UNIT/ML ML Dialysis SC SCH (09:00)
[2018-06-12] MEDS: Saccharomyces Boulardi 250 mg Cap PO SCH ×2 (09:42→18:25)
[2018-06-12] MEDS ORDERED: EPOETIN ALFA 4,000 UNIT/ML ML Dialysis SC ONE (10:30)
--- NOTE | 2018-06-12 12:04 | RAD ---
Date of service: 06/12/2018 HISTORY: Persistent elevated WBC COMPARISON: 06/05/2018. FINDINGS: LUNGS: Improved aeration of the right lung. PLEURA: No significant pleural effusion identified, no pneumothorax apparent. CARDIOVASCULAR: No radiographic findings to suggest acute or significant cardiovascular disease. Atherosclerotic calcifications identified primarily aortic arch. OSSEOUS STRUCTURES: No significant abnormalities. VISUALIZED UPPER ABDOMEN: Normal. OTHER FINDINGS: Persistent elevation right hemidiaphragm. IMPRESSION: Interval improvement in infiltrate/atelectasis.
--- NOTE | 2018-06-12 12:08 | CP.PCM.PN ---
<Mona Isaasc E - Last Filed: 06/12/18 15:38> Subjective - Date & Time of Evaluation Date of Evaluation: 06/12/18 Time of Evaluation: 07:45 - Subjective Subjective: Medicine progress note ( Dr. Harjinder Post's service) Patient was seen and examined at bedside, while resting in bed comfortably in no acute distress. . Patient states that she is doing well and denies any acute issues or complaints. Patient continues to tolerate PO diet without any issues and denies any symptoms of fever, chills, nausea, chest pain, palpitations, shortness of breath, bowel changes or urinary symptoms. Objective - Vital Signs/Intake and Output Vital Signs (last 24 hours): Temp Pulse Resp BP Pulse Ox 97.8 F 65 20 152/66 H 96 06/12/18 08:38 06/12/18 08:38 06/12/18 08:38 06/12/18 09:42 06/12/18 08:38 Intake and Output: 06/12/18 06/12/18 06:59 18:59 Intake Total 540 Output Total 815 Balance -275 - Medications Medications: Current Medications Amlodipine Besylate (Norvasc) 10 mg PO DAILY [facility] Last Admin: 06/12/18 09:43 Dose: 10 mg Carvedilol (Coreg) 6.25 mg PO BID [facility] Last Admin: 06/12/18 09:42 Dose: 6.25 mg Dextrose (Dextrose 50% Inj) 0 ml IV STAT PRN; Protocol PRN Reason: Hypoglycemia Protocol Dextrose (Glutose 15) 0 gm PO ONCE PRN; Protocol PRN Reason: Hypoglycemia Protocol Glucagon (Glucagen Diagnostic Kit) 0 mg IM STAT PRN; Protocol PRN Reason: Hypoglycemia Protocol Heparin Sodium (Porcine) (Heparin) 5,000 units SC Q8 [facility] Last Admin: 06/12/18 05:49 Dose: 5,000 units Meropenem 1 gm/ Sodium (Chloride) 100 mls @ 100 mls/hr IVPB Q12H [facility]; Protocol Last Admin: 06/12/18 02:12 Dose: 100 mls/hr Metronidazole (Flagyl) 500 mg in 100 mls @ 100 mls/hr IVPB Q8H [facility]; Protocol Last Admin: 06/12/18 05:47 Dose: 100 mls/hr Insulin Human Regular (Novolin R) 0 unit SC ACHS [facility]; Protocol Last Admin: 06/12/18 07:48 Dose: Not Given Losartan Potassium (Cozaar) 12.5 mg PO DAILY [facility] Last Admin: 06/02/18 09:26 Dose: 12.5 mg Losartan Potassium (Cozaar) 25 mg PO DAILY [facility] Last Admin: 06/12/18 09:44 Dose: 25 mg Morphine Sulfate (Morphine) 2 mg IVP Q4 PRN PRN Reason: Pain, severe (8-10) Last Admin: 06/11/18 17:28 Dose: 2 mg Ondansetron HCl (Zofran Inj) 4 mg IVP Q4H PRN PRN Reason: Nausea/Vomiting Last Admin: 05/31/18 12:44 Dose: 4 mg Saccharomyces Boulardii (Florastor) 250 mg PO BID [facility] Last Admin: 06/12/18 09:42 Dose: 250 mg - Labs Labs: 06/12/18 08:15 06/12/18 08:15 PT 13.1 SECONDS (9.7-12.2) H 06/04/18 06:44 INR 1.2 06/04/18 06:44 APTT 33 SECONDS (21-34) 06/04/18 06:44 - Constitutional Appears: No Acute Distress - Head Exam Head Exam: ATRAUMATIC, NORMAL INSPECTION - Eye Exam Eye Exam: EOMI - ENT Exam ENT Exam: Mucous Membranes Moist - Respiratory Exam Respiratory Exam: Clear to Ausculation Bilateral, NORMAL BREATHING PATTERN. absent: Prolonged Expiratory Phase, Rales, Rhonchi, Wheezes, Respiratory Distress - Cardiovascular Exam Cardiovascular Exam: REGULAR RHYTHM. absent: +S1, +S2 - GI/Abdominal Exam GI & Abdominal Exam: Soft, Tenderness, Normal Bowel Sounds Additional comments: S/p Percutaneous cholecystostomy tube placement (06/04/18) and currently with brown liquid drainage ( about 10cc of drainage) - Extremities Exam Extremities Exam: Normal Inspection. absent: Calf Tenderness, Joint Swelling, Pedal Edema, Tenderness - Back Exam Back Exam: NORMAL INSPECTION. absent: CVA tenderness (L), CVA tenderness (R) - Neurological Exam Neurological Exam: Alert, Awake, Oriented x3 - Psychiatric Exam Psychiatric exam: Normal Affect - Skin Skin Exam: Normal Color Assessment and Plan (1) Cholecystitis Assessment & Plan: - IR, Dr. Johnson - General Surgery, Dr. Dorsey * Plans for surgery in 4-6 weeks - ID, Annabelle Haro Imaging/labs: - Obstructive series (05/30/18): Elevation of the right hemidiaphragm. The right lung appears smaller than the left. Mild constipation. - Abdomen US (05/30/18): Distended gallbladder contains sludge and possible small gallstones associated with diffuse wall thickening. The possibility of acute cholecystitis should be considered. The common bile duct measures 4.5 millimeter. -Abdomen/Pelvis CT (05/30/18): The gallbladder is markedly distended. Suspicious for gallbladder wall thickening and pericholecystic inflammatory changes. The possibility of acute cholecystitis should be excluded. The common bile duct is not dilated. Findings suspicious for acute cholecystitis. If indicated further assessment by ultrasound may be obtained. - Blood Cx (05/30/18): No growth x 5 days - Urine Cx (05/30/18): No growth - Body Fluid Culture: No growth - Leukocytosis mildly improving, will continue to monitor with am labs - Liver enzymes WNL (06/19/18) Medications: * Merrem 1gm Q12H [facility] (start 05/30/18, Day 5) --> continue till 06/15/18 * Metronidazole 500mg q8h (start 06/07/18) --> continue till 06/15/18 * D/C Vancomycin 1gm IV Q12H (Start 05/31; Received 3 days) * Florastor 250mg PO BID * Morphine 2mg IV Q4H PRN severe pain * Zofran 4mg IVP PRN N/V Status: Acute (2) Pleural effusion Assessment & Plan: Consultation: - Chip Tuner, Dr. Duenas---> Help appreciated * As per Dr. Duenas Small bilateral pleural effusion and does not need thoracentesis Imaging: Chest CT (06/05/18): Small to medium size right-sided effusion associated with mild atelectasis in the right lower and to a lesser degree right upper lobes. Mild subsegmental atelectasis right middle lobe. Trace left-sided effusion with mild left lower lobe atelectasis. There is also some minor atelectasis in the left medial upper lung field as well. In situ drainage catheter right lateral abdomen extending into the lateral margin of the gallbladder fossa. It is unclear whether the pigtail component resides extrinsic to the gallbladder wall or is within the lumen of the gallbladder. Probable layering small gallbladder calculi. There is small amount of perihepatic ascites. CXR 06/05/18: Interval mild improved aeration in the right out lower lobe with persistent atelectasis/pneumonia. Small right pleural effusion. CXR 06/03/18: elevated right hemidiaphragm, possible small right pleural effusion. Consider possibily of subpulmonic pleural effusion CXR (06/02/18): Moderate right pleural effusion, trace left pleural effusion. Interval right basal compressive atelectasis. Cardiomegaly. Increased pulm venous congestion Status: Acute (3) DORIS (acute kidney injury) Assessment & Plan: Stable Consultation: Nephrology, Dr. Choi----> Help appreciated * Management as per recommendation Continue to monitor with am labs Status: Acute (4) Anemia Assessment & Plan: H/H Stable Possibly secondary to kidney disease Procrit 4,000 units once Will continue to monitor with am labs Status: Acute (5) Diabetes mellitus Assessment & Plan: HgbA1C (06/03/2018): 8.6 Accuchecks ISS- High dose Hypoglycemia protocol Status: Acute (6) Uncontrolled hypertension Assessment & Plan: Consultation: -Nephrology, Dr. Choi---> help appreciate d Improving Hold Losartan due to DORIS; DORIS resolving and Cozaar 25mg PO daily re-initiated by Nephrology 06/12/18 Start Amlodipine 10mg Start Coreg 6.25mg PO BID Status: Acute (7) Positive urinary cytology Assessment & Plan: Consultation: IDDr. Alanis---> Help appreciated * new urine culture discussed with ID; plans to initiate Zyvox by ID (06/12/18) Asymptomatic UA (05/30/18): - Nitrate negative, LE (-) and WBC (2) UA (06/10/18): - Nitrate negative, LE (+1) and WBC (7) Urine culture (06/10/18): Gram + cocci Medication: Currently, Merrem 1gm Q12H [facility] (start 05/30/18, Day 5) --> continue till 06/15/18 Status: Acute (8) Leukocytosis Assessment & Plan: Consultation: Dr. Annabelle GUTIERREZ---> Help appreciated Persistent Blood culture (05/30/17): No growth x5 days * F/u repeat blood culture (06/12/18) Urine culture (05/30/18): Negative * repeat UC (06/10/18): Gram positive cocci * ID made aware of repeat UC; plans to initiate Zyvox Gram stain of abdominal fluid (06/04/18): Negative Repeat Chest X-ray (06/12/18): Interval improvement in infiltrate/atelectasis. * Incentive spirometry ordered Will continue to monitor leukocytosis with repeat labs Status: Acute (9) Prophylactic measure Assessment & Plan: GI: Not indicated at this time DVT: Heparin 5,000 units SC Q8H Disposition: Awaiting leukocytosis to normalize and then can be possibly discharged All plans and management discussed with Dr. Harjinder Post Status: Acute <Bernard Post S - Last Filed: 06/14/18 19:25> Objective - Vital Signs/Intake and Output Vital Signs (last 24 hours): Temp Pulse Resp BP Pulse Ox 97.5 F L 59 L 20 139/61 96 06/14/18 08:20 06/14/18 08:20 06/14/18 08:20 06/14/18 08:20 06/14/18 08:20 Intake and Output: 06/14/18 06/15/18 18:59 06:59 Intake Total 300 Balance 300 - Medications Medications: Current Medications Amlodipine Besylate (Norvasc) 10 mg PO DAILY [facility] Last Admin: 06/14/18 09:29 Dose: 10 mg Carvedilol (Coreg) 6.25 mg PO BID [facility] Last Admin: 06/14/18 17:31 Dose: 6.25 mg Dextrose (Dextrose 50% Inj) 0 ml IV STAT PRN; Protocol PRN Reason: Hypoglycemia Protocol Dextrose (Glutose 15) 0 gm PO ONCE PRN; Protocol PRN Reason: Hypoglycemia Protocol Epoetin Kody (Procrit) 4,000 unit SC MWF [facility] Stop: 06/19/18 09:01 Ferrous Gluconate (Fergon) 324 mg PO TID [facility] Last Admin: 06/14/18 17:31 Dose: 324 mg Glucagon (Glucagen Diagnostic Kit) 0 mg IM STAT PRN; Protocol PRN Reason: Hypoglycemia Protocol Heparin Sodium (Porcine) (Heparin) 5,000 units SC Q8 [facility] Last Admin: 06/14/18 13:18 Dose: 5,000 units Metronidazole (Flagyl) 500 mg in 100 mls @ 100 mls/hr IVPB Q8H [facility]; Protocol Last Admin: 06/14/18 13:20 Dose: 100 mls/hr Linezolid (Zyvox 600mg/300ml D5w) 600 mg in 300 mls @ 200 mls/hr IVPB Q12H [facility]; Protocol Last Admin: 06/14/18 16:16 Dose: 200 mls/hr Insulin Human Regular (Novolin R) 0 unit SC ACHS [facility]; Protocol Last Admin: 06/14/18 16:11 Dose: Not Given Losartan Potassium (Cozaar) 25 mg PO DAILY [facility] Last Admin: 06/14/18 09:30 Dose: 25 mg Ondansetron HCl (Zofran Inj) 4 mg IVP Q4H PRN PRN Reason: Nausea/Vomiting Last Admin: 05/31/18 12:44 Dose: 4 mg Saccharomyces Boulardii (Florastor) 250 mg PO BID [facility] Last Admin: 06/14/18 17:31 Dose: 250 mg Vancomycin HCl (Vancocin 250mg Capsule) 250 mg PO QID [facility] Last Admin: 06/14/18 17:34 Dose: 250 mg Vitamin B Complex/Vit C/Folic Acid (Nephro-Thaddeus) 1 tab PO 0800 [facility] - Labs Labs: 06/14/18 07:50 06/14/18 07:50 PT 13.1 SECONDS (9.7-12.2) H 06/04/18 06:44 INR 1.2 06/04/18 06:44 APTT 33 SECONDS (21-34) 06/04/18 06:44 Assessment and Plan (1) Abdominal pain Status: Acute (2) Cholecystitis Status: Acute (3) Nausea Status: Acute (4) CVA, old, dysarthria Status: Acute (5) Contusion Status: Acute (6) Hyperglycemia Status: Acute (7) Ischemic stroke Status: Acute (8) Slurring of speech Status: Acute (9) Toothache Status: Acute (10) UTI (urinary tract infection) Status: Acute (11) Diabetes mellitus Status: Chronic (12) Hyperlipidemia Status: Chronic (13) Hypertension Status: Chronic Attending/Attestation - Attestation I have personally seen and examined this patient.: Yes I have fully participated in the care of the patient.: Yes I have reviewed all pertinent clinical information, including history, physical exam and plan: Yes Notes (Text): admited kleber case seen and dKarenw staff and resident, concurred with finding and management..
--- NOTE | 2018-06-12 13:00 | CP.PCM.PN ---
Subjective - Date & Time of Evaluation Date of Evaluation: 06/12/18 - Subjective Subjective: patient seen and examined today no nausea, no vomiting, no diarrhea, no shortness of breath, no fever, no dizziness Tolerating the p.o. diet Objective - Vital Signs/Intake and Output Vital Signs (last 24 hours): Temp Pulse Resp BP Pulse Ox 97.8 F 65 20 152/66 H 96 06/12/18 08:38 06/12/18 08:38 06/12/18 08:38 06/12/18 09:42 06/12/18 08:38 Intake and Output: 06/12/18 06/12/18 06:59 18:59 Intake Total 540 Output Total 815 Balance -275 - Medications Medications: Current Medications Amlodipine Besylate (Norvasc) 10 mg PO DAILY [facility] Last Admin: 06/12/18 09:43 Dose: 10 mg Carvedilol (Coreg) 6.25 mg PO BID [facility] Last Admin: 06/12/18 09:42 Dose: 6.25 mg Dextrose (Dextrose 50% Inj) 0 ml IV STAT PRN; Protocol PRN Reason: Hypoglycemia Protocol Dextrose (Glutose 15) 0 gm PO ONCE PRN; Protocol PRN Reason: Hypoglycemia Protocol Glucagon (Glucagen Diagnostic Kit) 0 mg IM STAT PRN; Protocol PRN Reason: Hypoglycemia Protocol Heparin Sodium (Porcine) (Heparin) 5,000 units SC Q8 [facility] Last Admin: 06/12/18 05:49 Dose: 5,000 units Meropenem 1 gm/ Sodium (Chloride) 100 mls @ 100 mls/hr IVPB Q12H [facility]; Protocol Last Admin: 06/12/18 02:12 Dose: 100 mls/hr Metronidazole (Flagyl) 500 mg in 100 mls @ 100 mls/hr IVPB Q8H [facility]; Protocol Last Admin: 06/12/18 05:47 Dose: 100 mls/hr Insulin Human Regular (Novolin R) 0 unit SC ACHS [facility]; Protocol Last Admin: 06/12/18 12:12 Dose: 2 units Losartan Potassium (Cozaar) 12.5 mg PO DAILY [facility] Last Admin: 06/02/18 09:26 Dose: 12.5 mg Losartan Potassium (Cozaar) 25 mg PO DAILY [facility] Last Admin: 06/12/18 09:44 Dose: 25 mg Morphine Sulfate (Morphine) 2 mg IVP Q4 PRN PRN Reason: Pain, severe (8-10) Last Admin: 06/11/18 17:28 Dose: 2 mg Ondansetron HCl (Zofran Inj) 4 mg IVP Q4H PRN PRN Reason: Nausea/Vomiting Last Admin: 05/31/18 12:44 Dose: 4 mg Saccharomyces Boulardii (Florastor) 250 mg PO BID [facility] Last Admin: 06/12/18 09:42 Dose: 250 mg - Labs Labs: 06/12/18 08:15 06/12/18 08:15 PT 13.1 SECONDS (9.7-12.2) H 06/04/18 06:44 INR 1.2 06/04/18 06:44 APTT 33 SECONDS (21-34) 06/04/18 06:44 - Constitutional Appears: Well - Head Exam Head Exam: ATRAUMATIC, NORMAL INSPECTION, NORMOCEPHALIC - Eye Exam Eye Exam: EOMI, Normal appearance, PERRL Pupil Exam: NORMAL ACCOMODATION, PERRL - ENT Exam ENT Exam: Mucous Membranes Moist, Normal Exam - Neck Exam Neck Exam: Full ROM, Normal Inspection. absent: Lymphadenopathy - Respiratory Exam Respiratory Exam: Decreased Breath Sounds - Cardiovascular Exam Cardiovascular Exam: REGULAR RHYTHM, +S1, +S2 - GI/Abdominal Exam GI & Abdominal Exam: Soft, Diminished Bowel Sounds - Rectal Exam Rectal Exam: Deferred - Neurological Exam Neurological Exam: Oriented x3 Assessment and Plan (1) Abdominal pain Status: Acute (2) Cholecystitis Status: Acute (3) Nausea Status: Acute (4) CVA, old, dysarthria Status: Acute (5) Contusion Status: Acute (6) Hyperglycemia Status: Acute (7) Ischemic stroke Status: Acute (8) Slurring of speech Status: Acute (9) Toothache Status: Acute (10) UTI (urinary tract infection) Status: Acute (11) Diabetes mellitus Status: Chronic (12) Hyperlipidemia Status: Chronic (13) Hypertension Status: Chronic - Assessment and Plan (Free Text) Plan: labs reviewed vitals reviewed medications reviewed coreg cozaar dextrose 50% inj flagyl florastor glucagen diagnostic kit glutose 15 heparin morphine norvasc novolin R vancocin zofran zyvox (1) Cholecystitis Assessment & Plan: - IR, Dr. Johnson - General Surgery, Dr. Dorsey * Plans for surgery in 4-6 weeks - MATT, Annabelle Haro Imaging/labs: - Obstructive series (05/30/18): Elevation of the right hemidiaphragm. The right lung appears smaller than the left. Mild constipation. - Abdomen US (05/30/18): Distended gallbladder contains sludge and possible small gallstones associated with diffuse wall thickening. The possibility of acute cholecystitis should be considered. The common bile duct measures 4.5 millimeter. -Abdomen/Pelvis CT (05/30/18): The gallbladder is markedly distended. Suspicious for gallbladder wall thickening and pericholecystic inflammatory changes. The possibility of acute cholecystitis should be excluded. The common bile duct is not dilated. Findings suspicious for acute cholecystitis. If indicated further assessment by ultrasound may be obtained. - Blood Cx (05/30/18): No growth x 5 days - Urine Cx (05/30/18): No growth - Body Fluid Culture: No growth - Leukocytosis mildly improving, will continue to monitor with am labs - Liver enzymes WNL followupwith surg who prefers to do surg after 4 weeks once track is formed as per surgon fmaily notified d.w daughter hx thruinterpreter Medications: * Merrem 1gm Q12H [facility] (start 05/30/18, Day 5) --> continue till 06/15/18 * Metronidazole 500mg q8h (start 06/07/18) --> continue till 06/15/18 * D/C Vancomycin 1gm IV Q12H (Start 05/31; Received 3 days) * Florastor 250mg PO BID * Morphine 2mg IV Q4H PRN severe pain * Zofran 4mg IVP PRN N/V Status: Acute (2) Pleural effusion Assessment & Plan: Consultation: - Contact Printer Dry Film, Dr. Duenas---> Help appreciated * As per Dr. Duenas Small bilateral pleural effusion and does not need thoracentesis Imaging: Chest CT (06/05/18): Small to medium size right-sided effusion associated with mild atelectasis in the right lower and to a lesser degree right upper lobes. Mi ld subsegmental atelectasis right middle lobe. Trace left-sided effusion with mild left lower lobe atelectasis. There is also some minor atelectasis in the left medial upper lung field as well. In situ drainage catheter right lateral abdomen extending into the lateral margin of the gallbladder fossa. It is unclear whether the pigtail component resides extrinsic to the gallbladder wall or is within the lumen of the gallbladder. Probable layering small gallbladder calculi. There is small amount of perihepatic ascites. CXR 06/05/18: Interval mild improved aeration in the right out lower lobe with persistent atelectasis/pneumonia. Small right pleural effusion. CXR 06/03/18: elevated right hemidiaphragm, possible small right pleural effusion. Consider possibily of subpulmonic pleural effusion CXR (06/02/18): Moderate right pleural effusion, trace left pleural effusion. Interval right basal compressive atelectasis. Cardiomegaly. Increased pulm venous congestion Status: Acute (3) DORIS (acute kidney injury) Assessment & Plan: Stable Consultation: Nephrology, Dr. Choi----> Help appreciated * Management as per recommendation Continue to monitor with am labs Status: Acute (4) Anemia Assessment & Plan: H/H Stable Possibly secondary to kidney disease Procrit 4,000 units once Will continue to monitor with am labs Status: Acute (5) Diabetes mellitus Assessment & Plan: HgbA1C (06/03/2018): 8.6 Accuchecks ISS- High dose Hypoglycemia protocol Status: Acute (6) Uncontrolled hypertension Assessment & Plan: Consultation: -Nephrology, Dr. Choi---> help appreciate d Improving Hold Losartan due to DORIS; DORIS resolving and Cozaar 25mg PO daily re-initiated by Nephrology 06/12/18 Start Amlodipine 10mg Start Coreg 6.25mg PO BID Status: Acute (7) Positive urinary cytology Assessment & Plan: Consultation: ID, Dr. Alanis---> Help appreciated * new urine culture discussed with ID; plans to initiate Zyvox by ID (06/12/18) Asymptomatic UA (05/30/18): - Nitrate negative, LE (-) and WBC (2) UA (06/10/18): - Nitrate negative, LE (+1) and WBC (7) Urine culture (06/10/18): Gram + cocci Medication: Currently, Merrem 1gm Q12H [facility] (start 05/30/18, Day 5) --> continue till 06/15/18 Status: Acute (8) Leukocytosis Assessment & Plan: Consultation: ID, Dr. Alanis---> Help appreciated Persistent Blood culture (05/30/17): No growth x5 days * F/u repeat blood culture (06/12/18) Urine culture (05/30/18): Negative * repeat UC (06/10/18): Gram positive cocci * ID made aware of repeat UC; plans to initiate Zyvox Gram stain of abdominal fluid (06/04/18): Negative Repeat Chest X-ray (06/12/18): Interval improvement in infiltrate/atelectasis. * Incentive spirometry ordered Will continue to monitor leukocytosis with repeat labs Status: Acute (9) Prophylactic measure Assessment & Plan: GI: Not indicated at this time DVT: Heparin 5,000 units SC Q8H Disposition: Awaiting leukocytosis to normalize and then can be possibly discharged
--- NOTE | 2018-06-12 13:41 | CP.PCM.PN ---
Subjective - Date & Time of Evaluation Date of Evaluation: 06/12/18 Time of Evaluation: 13:40 - Subjective Subjective: Nephrology Consultation Note: Assessment: stable acute cholecystitis Acute Kidney Injury (N17.9) likely hemodynamic due to sepsis/ATN, BP fluctuations, limited oral intake: IMPROVED Diabetic chronic Kidney Disease (E11.22) Hypertensive Chronic Kidney Disease (I12.9) with HTN urgency Chronic Kidney Disease (N18.3) Stage 3 with ? mg proteinuria (R80.9) likely due to DM/HTN Anemia (D64.9), severe pHTN with severe TR. Plan No acute need for renal replacement therapy at this time. anticipate spontaneous and gradual renal recovery pt had cholecystotomy tube placement by IR 06/04/18. gall bladder surgery was deferred but can proceed from renal perspective as BP controlled, renal fxn stable. pulmonary following. respi status improved. Hypertension control with meds as ordered. Maintain hemodynamics stable. Avoid hypotension. held ACEI/ARB due to recent DORIS, will resume Monitor Input/Output, daily weights and renal function with basic metabolic panel cardiology, ID surgery following supplement lytes as needed epogen today and lasix for few days added Dose meds/antibiotics for reduced GFR. Avoid fleets enema/magnesium based laxatives. Avoid nephrotoxins/NSAIDs/ iodinated contrast (unless needed emergently) Glycemic control Further work up/management as per primary team Thanks for allowing me to participate in care of your patient. Will follow patient with you. Please call if any Qs. had d/w team and daughter Dr Ruiz Choi Office: [phone] Chief Complaint; cholecytitis Reason for consult: Acute Kidney Injury HPI: Pt is a 67 F with hx of diabetes Mellitus ( years), hypertension (years) CVA presented with complaints of abdomen pain and found to have Acute cholecysitis. also with severe pHTN with severe TR. Denies OTC/herbal meds or NSAIDs No recent iodinated contrast exposure. No obvious episodes of low BP but noted fluctuations. episode of bp in 200+ noted pt not aware about kidney disease in past. baseline cr 1.0-1.4 likely reporesent underlying CKD 3 ROS: Cardiovascular: No chest pain. Pulmonary: denies shortness of breath Gastrointestinal: denies abdominal pain No nausea. No vomiting. Genitourinary: No pain while urinating. Denies blood in urine. All other negative except as mentioned in HPI Physical Examination: General Appearance: Comfortable, in no acute respiratory distress, co-operative . better appearing. on o2 via NC Vitals reviewed and noted as below Head; Atraumatic, normocephalic ENT: no ulcers no thrush. Tongue is midline. Oropharynx: no rash or ulcers. EYES: Rt eye unable to see. Eye muscles and extraocular movement intact. Sclera is anicteric. Neck; supple no lymphadenopathy, no thyromegaly or bruit Lungs: Normal respiratory rate/effort. Breath sounds improved at Rt base Heart: Normal rate. s1s2 normal. No rub or gallop. Extremities: no edema. No varicose veins Neurological: Patient is alert, awake and oriented. speech impaired due to stroke hx Skin: Warm and dry. Normal turgor. No rash. Palpitation: Normal elasticity for age Abdomen: Abdomen is soft/distended. Bowel sounds +. There is no abdominal tenderness, no guarding/rigidity no organomegaly Psych: lack insight and has normal affect/mood MSK: no joint tenderness or swelling. Digits and nails normal, no deformity : kidney or bladder not palpable Labs/imaging reviewed. Past medical history, past surgical history, family history, social history, allergy reviewed and noted as below Family hx: no hx of CKD. Rest non-contributory UA 2+ protein and 1+ blood renal imaging okay on sono but MRCP reported renal atrophy Objective - Vital Signs/Intake and Output Vital Signs (last 24 hours): Temp Pulse Resp BP Pulse Ox 97.8 F 65 20 152/66 H 96 06/12/18 08:38 06/12/18 08:38 06/12/18 08:38 06/12/18 09:42 06/12/18 08:38 Intake and Output: 06/12/18 06/12/18 06:59 18:59 Intake Total 540 Output Total 815 Balance -275 - Medications Medications: Current Medications Amlodipine Besylate (Norvasc) 10 mg PO DAILY [facility] Last Admin: 06/12/18 09:43 Dose: 10 mg Carvedilol (Coreg) 6.25 mg PO BID [facility] Last Admin: 06/12/18 09:42 Dose: 6.25 mg Dextrose (Dextrose 50% Inj) 0 ml IV STAT PRN; Protocol PRN Reason: Hypoglycemia Protocol Dextrose (Glutose 15) 0 gm PO ONCE PRN; Protocol PRN Reason: Hypoglycemia Protocol Glucagon (Glucagen Diagnostic Kit) 0 mg IM STAT PRN; Protocol PRN Reason: Hypoglycemia Protocol Heparin Sodium (Porcine) (Heparin) 5,000 units SC Q8 [facility] Last Admin: 06/12/18 13:02 Dose: 5,000 units Meropenem 1 gm/ Sodium (Chloride) 100 mls @ 100 mls/hr IVPB Q12H [facility]; Protocol Last Admin: 06/12/18 13:37 Dose: 100 mls/hr Metronidazole (Flagyl) 500 mg in 100 mls @ 100 mls/hr IVPB Q8H [facility]; Protocol Last Admin: 06/12/18 05:47 Dose: 100 mls/hr Insulin Human Regular (Novolin R) 0 unit SC ACHS [facility]; Protocol Last Admin: 06/12/18 12:12 Dose: 2 units Losartan Potassium (Cozaar) 12.5 mg PO DAILY [facility] Last Admin: 06/02/18 09:26 Dose: 12.5 mg Losartan Potassium (Cozaar) 25 mg PO DAILY [facility] Last Admin: 06/12/18 09:44 Dose: 25 mg Morphine Sulfate (Morphine) 2 mg IVP Q4 PRN PRN Reason: Pain, severe (8-10) Last Admin: 06/11/18 17:28 Dose: 2 mg Ondansetron HCl (Zofran Inj) 4 mg IVP Q4H PRN PRN Reason: Nausea/Vomiting Last Admin: 05/31/18 12:44 Dose: 4 mg Saccharomyces Boulardii (Florastor) 250 mg PO BID [facility] Last Admin: 06/12/18 09:42 Dose: 250 mg - Labs Labs: 06/12/18 08:15 06/12/18 08:15 PT 13.1 SECONDS (9.7-12.2) H 06/04/18 06:44 INR 1.2 06/04/18 06:44 APTT 33 SECONDS (21-34) 06/04/18 06:44
--- NOTE | 2018-06-12 14:14 | CP.PCM.PN ---
Subjective - Date & Time of Evaluation Date of Evaluation: 06/12/18 Time of Evaluation: 09:00 - Subjective Subjective: seen on rounds afeb nad Objective - Vital Signs/Intake and Output Vital Signs (last 24 hours): Temp Pulse Resp BP Pulse Ox 97.8 F 65 20 152/66 H 96 06/12/18 08:38 06/12/18 08:38 06/12/18 08:38 06/12/18 09:42 06/12/18 08:38 Intake and Output: 06/12/18 06/12/18 06:59 18:59 Intake Total 540 Output Total 815 Balance -275 - Medications Medications: Current Medications Amlodipine Besylate (Norvasc) 10 mg PO DAILY [facility] Last Admin: 06/12/18 09:43 Dose: 10 mg Carvedilol (Coreg) 6.25 mg PO BID [facility] Last Admin: 06/12/18 09:42 Dose: 6.25 mg Dextrose (Dextrose 50% Inj) 0 ml IV STAT PRN; Protocol PRN Reason: Hypoglycemia Protocol Dextrose (Glutose 15) 0 gm PO ONCE PRN; Protocol PRN Reason: Hypoglycemia Protocol Glucagon (Glucagen Diagnostic Kit) 0 mg IM STAT PRN; Protocol PRN Reason: Hypoglycemia Protocol Heparin Sodium (Porcine) (Heparin) 5,000 units SC Q8 [facility] Last Admin: 06/12/18 13:02 Dose: 5,000 units Meropenem 1 gm/ Sodium (Chloride) 100 mls @ 100 mls/hr IVPB Q12H [facility]; Protocol Last Admin: 06/12/18 13:37 Dose: 100 mls/hr Metronidazole (Flagyl) 500 mg in 100 mls @ 100 mls/hr IVPB Q8H [facility]; Protocol Last Admin: 06/12/18 05:47 Dose: 100 mls/hr Insulin Human Regular (Novolin R) 0 unit SC ACHS [facility]; Protocol Last Admin: 06/12/18 12:12 Dose: 2 units Losartan Potassium (Cozaar) 12.5 mg PO DAILY [facility] Last Admin: 06/02/18 09:26 Dose: 12.5 mg Losartan Potassium (Cozaar) 25 mg PO DAILY [facility] Last Admin: 06/12/18 09:44 Dose: 25 mg Morphine Sulfate (Morphine) 2 mg IVP Q4 PRN PRN Reason: Pain, severe (8-10) Last Admin: 06/11/18 17:28 Dose: 2 mg Ondansetron HCl (Zofran Inj) 4 mg IVP Q4H PRN PRN Reason: Nausea/Vomiting Last Admin: 05/31/18 12:44 Dose: 4 mg Saccharomyces Boulardii (Florastor) 250 mg PO BID [facility] Last Admin: 06/12/18 09:42 Dose: 250 mg - Labs Labs: 06/12/18 08:15 06/12/18 08:15 PT 13.1 SECONDS (9.7-12.2) H 06/04/18 06:44 INR 1.2 06/04/18 06:44 APTT 33 SECONDS (21-34) 06/04/18 06:44 - Constitutional Appears: Well, Non-toxic, Cachectic, Chronically Ill - Head Exam Head Exam: ATRAUMATIC, NORMAL INSPECTION, NORMOCEPHALIC - Eye Exam Eye Exam: EOMI, Normal appearance, PERRL Pupil Exam: NORMAL ACCOMODATION, PERRL - ENT Exam ENT Exam: Mucous Membranes Moist, Normal Exam - Neck Exam Neck Exam: Full ROM, Normal Inspection. absent: Lymphadenopathy - Respiratory Exam Respiratory Exam: Clear to Ausculation Bilateral, NORMAL BREATHING PATTERN - Cardiovascular Exam Cardiovascular Exam: REGULAR RHYTHM, +S1, +S2. absent: Murmur - GI/Abdominal Exam GI & Abdominal Exam: Distended. absent: Tenderness - Rectal Exam Rectal Exam: Deferred - Extremities Exam Extremities Exam: Full ROM, Normal Capillary Refill, Normal Inspection. absent: Joint Swelling, Pedal Edema - Back Exam Back Exam: NORMAL INSPECTION - Neurological Exam Neurological Exam: Alert, Awake, CN II-XII Intact, Normal Gait, Oriented x3 - Psychiatric Exam Psychiatric exam: Normal Affect, Normal Mood - Skin Skin Exam: Dry, Intact, Normal Color, Warm Assessment and Plan (1) Abdominal pain Status: Acute (2) Cholecystitis Status: Acute (3) CVA, old, dysarthria Status: Acute (4) Cholangitis Status: Acute (5) Diabetes mellitus Status: Chronic (6) Hyperlipidemia Status: Chronic (7) Hypertension Status: Chronic (8) DORIS (acute kidney injury) Status: Acute - Assessment and Plan (Free Text) Assessment: IV rx renewed
[2018-06-12] MEDS: Linezolid 600 mg in D5W 300 ml 600 MG/300 ML BAG IVPB SCH (18:26)
[2018-06-12] MEDS: Vancomycin Hydrochloride 250 mg Capsule (Oral) PO SCH (22:02)
[2018-06-13] MEDS: Linezolid 600 mg in D5W 300 ml 600 MG/300 ML BAG IVPB SCH ×2 (04:00→16:12)
[2018-06-13] MEDS: metroNIDAZOLE IV 500 mg/100 ml 500 MG/100 ML BAG IVPB SCH ×3 (05:31→21:16)
[2018-06-13 07:19] LABS: BASO # 0.1 K/uL (0.0-0.2); BASO % 1.1 % (0.0-2.0); EOS # 0.7 K/uL (0.0-0.7); EOS % 5.5 % (0.0-4.0); HEMOGLOBIN 9.2 g/dL (11.0-16.0); LYMPH # 2.5 K/uL (1.0-4.3); LYMPH % 18.8 % (20.0-40.0); MEAN CORPUSCULAR HEMOGLOBIN 25.8 pg (27.0-31.0); MEAN CORPUSCULAR HGB CONC 32.6 g/dL (33.0-37.0); MEAN PLATELET VOLUME 9.1 fL (7.2-11.7); MONO % 7.2 % (0.0-10.0); NEUT # 9.1 K/uL (1.8-7.0); NEUT % 67.4 % (50.0-75.0); NRBC % 0.1 % (0.0-2.0); RBC 3.58 Mil/uL (3.80-5.20); RED CELL DISTRIBUTION WIDTH 15.5 % (11.5-14.5); WHITE BLOOD COUNT 13.5 K/uL (4.8-10.8)
[2018-06-13 07:24] LABS: ALB/GLOB RATIO 0.8 (1.0-2.1); ALBUMIN 2.6 g/dL (3.5-5.0); CALCIUM 8.2 mg/dl (8.6-10.4)
[2018-06-13] MEDS: (Novolin R) Insulin Human Regular 100 units/ml vial SC SCH ×4 (08:37→21:45)
[2018-06-13] MEDS: Vancomycin Hydrochloride 250 mg Capsule (Oral) PO SCH ×4 (10:08→21:16)
[2018-06-13] MEDS: Saccharomyces Boulardi 250 mg Cap PO SCH ×2 (10:08→17:58)
--- NOTE | 2018-06-13 11:04 | CP.PCM.PN ---
Subjective - Date & Time of Evaluation Date of Evaluation: 06/13/18 Time of Evaluation: 11:03 - Subjective Subjective: Nephrology Consultation Note: Assessment: stable acute cholecystitis Acute Kidney Injury (N17.9) likely hemodynamic due to sepsis/ATN, BP fluctuations, limited oral intake: IMPROVED Diabetic chronic Kidney Disease (E11.22) Hypertensive Chronic Kidney Disease (I12.9) with HTN urgency Chronic Kidney Disease (N18.3) Stage 3 with ? mg proteinuria (R80.9) likely due to DM/HTN Anemia (D64.9), severe pHTN with severe TR. Plan No acute need for renal replacement therapy at this time. anticipate spontaneous and gradual renal recovery pt had cholecystotomy tube placement by IR 06/04/18. gall bladder surgery was deferred but can proceed from renal perspective as BP controlled, renal fxn stable. pulmonary following. respi status improved. Hypertension control with meds as ordered. Maintain hemodynamics stable. Avoid hypotension. held ACEI/ARB due to recent DORIS, will resume. Monitor Input/Output, daily weights and renal function with basic metabolic panel cardiology, ID surgery following supplement lytes as needed epogen MWF for few days added Dose meds/antibiotics for reduced GFR. Avoid fleets enema/magnesium based laxatives. Avoid nephrotoxins/NSAIDs/ iodinated contrast (unless needed emergently) Glycemic control Further work up/management as per primary team Thanks for allowing me to participate in care of your patient. Will follow patient with you. Please call if any Qs. had d/w team and daughter Dr Ruiz Choi Office: [phone] Chief Complaint; cholecytitis Reason for consult: Acute Kidney Injury HPI: Pt is a 67 F with hx of diabetes Mellitus ( years), hypertension (years) CVA presented with complaints of abdomen pain and found to have Acute cholecysitis. also with severe pHTN with severe TR. Denies OTC/herbal meds or NSAIDs No recent iodinated contrast exposure. No obvious episodes of low BP but noted fluctuations. episode of bp in 200+ noted pt not aware about kidney disease in past. baseline cr 1.0-1.4 likely reporesent underlying CKD 3 ROS: Cardiovascular: No chest pain. Pulmonary: denies shortness of breath Gastrointestinal: denies abdominal pain No nausea. No vomiting. Genitourinary: No pain while urinating. Denies blood in urine. All other negative except as mentioned in HPI Physical Examination: General Appearance: Comfortable, in no acute respiratory distress, co-operative . better appearing. on o2 via NC Vitals reviewed and noted as below Head; Atraumatic, normocephalic ENT: no ulcers no thrush. Tongue is midline. Oropharynx: no rash or ulcers. EYES: Rt eye unable to see. Eye muscles and extraocular movement intact. Sclera is anicteric. Neck; supple no lymphadenopathy, no thyromegaly or bruit Lungs: Normal respiratory rate/effort. Breath sounds improved at Rt base Heart: Normal rate. s1s2 normal. No rub or gallop. Extremities: no edema. No varicose veins Neurological: Patient is alert, awake and oriented. speech impaired due to stroke hx Skin: Warm and dry. Normal turgor. No rash. Palpitation: Normal elasticity for age Abdomen: Abdomen is soft/distended. Bowel sounds +. There is no abdominal tenderness, no guarding/rigidity no organomegaly Psych: lack insight and has normal affect/mood MSK: no joint tenderness or swelling. Digits and nails normal, no deformity : kidney or bladder not palpable Labs/imaging reviewed. Past medical history, past surgical history, family history, social history, allergy reviewed and noted as below Family hx: no hx of CKD. Rest non-contributory UA 2+ protein and 1+ blood renal imaging okay on sono but MRCP reported renal atrophy Objective - Vital Signs/Intake and Output Vital Signs (last 24 hours): Temp Pulse Resp BP Pulse Ox 98.1 F 62 20 145/66 97 06/13/18 07:00 06/13/18 07:00 06/13/18 07:00 06/13/18 07:00 06/13/18 07:00 Intake and Output: 06/13/18 06/13/18 06:59 18:59 Intake Total 800 580 Output Total 50 150 Balance 750 430 - Medications Medications: Current Medications Amlodipine Besylate (Norvasc) 10 mg PO DAILY [facility] Last Admin: 06/13/18 10:08 Dose: 10 mg Carvedilol (Coreg) 6.25 mg PO BID [facility] Last Admin: 06/13/18 10:08 Dose: 6.25 mg Dextrose (Dextrose 50% Inj) 0 ml IV STAT PRN; Protocol PRN Reason: Hypoglycemia Protocol Dextrose (Glutose 15) 0 gm PO ONCE PRN; Protocol PRN Reason: Hypoglycemia Protocol Epoetin Kody (Procrit) 4,000 unit SC MWF [facility] Stop: 06/19/18 09:01 Glucagon (Glucagen Diagnostic Kit) 0 mg IM STAT PRN; Protocol PRN Reason: Hypoglycemia Protocol Heparin Sodium (Porcine) (Heparin) 5,000 units SC Q8 [facility] Last Admin: 06/13/18 05:33 Dose: 5,000 units Metronidazole (Flagyl) 500 mg in 100 mls @ 100 mls/hr IVPB Q8H [facility]; Protocol Last Admin: 06/13/18 05:31 Dose: 100 mls/hr Linezolid (Zyvox 600mg/300ml D5w) 600 mg in 300 mls @ 200 mls/hr IVPB Q12H [facility]; Protocol Last Admin: 06/13/18 04:00 Dose: 200 mls/hr Insulin Human Regular (Novolin R) 0 unit SC ACHS [facility]; Protocol Last Admin: 06/13/18 08:37 Dose: Not Given Losartan Potassium (Cozaar) 25 mg PO DAILY [facility] Last Admin: 06/13/18 10:08 Dose: 25 mg Morphine Sulfate (Morphine) 2 mg IVP Q4 PRN PRN Reason: Pain, severe (8-10) Last Admin: 06/13/18 01:22 Dose: 2 mg Ondansetron HCl (Zofran Inj) 4 mg IVP Q4H PRN PRN Reason: Nausea/Vomiting Last Admin: 05/31/18 12:44 Dose: 4 mg Saccharomyces Boulardii (Florastor) 250 mg PO BID [facility] Last Admin: 06/13/18 10:08 Dose: 250 mg Vancomycin HCl (Vancocin 250mg Capsule) 250 mg PO QID [facility] Last Admin: 06/13/18 10:08 Dose: 250 mg - Labs Labs: 06/13/18 06:56 06/13/18 06:56 PT 13.1 SECONDS (9.7-12.2) H 06/04/18 06:44 INR 1.2 06/04/18 06:44 APTT 33 SECONDS (21-34) 06/04/18 06:44
--- NOTE | 2018-06-13 12:42 | CP.PCM.PN ---
Subjective - Subjective Subjective: patient examined today no fever no nausea no shortness of breath no dizziness no chills no vomiting Objective - Vital Signs/Intake and Output Vital Signs (last 24 hours): Temp Pulse Resp BP Pulse Ox 98.1 F 62 20 145/66 97 06/13/18 07:00 06/13/18 07:00 06/13/18 07:00 06/13/18 07:00 06/13/18 07:00 Intake and Output: 06/13/18 06/13/18 06:59 18:59 Intake Total 800 580 Output Total 50 150 Balance 750 430 - Medications Medications: Current Medications Amlodipine Besylate (Norvasc) 10 mg PO DAILY [facility] Last Admin: 06/13/18 10:08 Dose: 10 mg Carvedilol (Coreg) 6.25 mg PO BID [facility] Last Admin: 06/13/18 10:08 Dose: 6.25 mg Dextrose (Dextrose 50% Inj) 0 ml IV STAT PRN; Protocol PRN Reason: Hypoglycemia Protocol Dextrose (Glutose 15) 0 gm PO ONCE PRN; Protocol PRN Reason: Hypoglycemia Protocol Epoetin Kody (Procrit) 4,000 unit SC MWF [facility] Stop: 06/19/18 09:01 Glucagon (Glucagen Diagnostic Kit) 0 mg IM STAT PRN; Protocol PRN Reason: Hypoglycemia Protocol Heparin Sodium (Porcine) (Heparin) 5,000 units SC Q8 [facility] Last Admin: 06/13/18 05:33 Dose: 5,000 units Metronidazole (Flagyl) 500 mg in 100 mls @ 100 mls/hr IVPB Q8H [facility]; Protocol Last Admin: 06/13/18 05:31 Dose: 100 mls/hr Linezolid (Zyvox 600mg/300ml D5w) 600 mg in 300 mls @ 200 mls/hr IVPB Q12H [facility]; Protocol Last Admin: 06/13/18 04:00 Dose: 200 mls/hr Insulin Human Regular (Novolin R) 0 unit SC ACHS [facility]; Protocol Last Admin: 06/13/18 08:37 Dose: Not Given Losartan Potassium (Cozaar) 25 mg PO DAILY [facility] Last Admin: 06/13/18 10:08 Dose: 25 mg Morphine Sulfate (Morphine) 2 mg IVP Q4 PRN PRN Reason: Pain, severe (8-10) Last Admin: 06/13/18 01:22 Dose: 2 mg Ondansetron HCl (Zofran Inj) 4 mg IVP Q4H PRN PRN Reason: Nausea/Vomiting Last Admin: 05/31/18 12:44 Dose: 4 mg Saccharomyces Boulardii (Florastor) 250 mg PO BID [facility] Last Admin: 06/13/18 10:08 Dose: 250 mg Vancomycin HCl (Vancocin 250mg Capsule) 250 mg PO QID [facility] Last Admin: 06/13/18 10:08 Dose: 250 mg - Labs Labs: 06/13/18 06:56 06/13/18 06:56 PT 13.1 SECONDS (9.7-12.2) H 06/04/18 06:44 INR 1.2 06/04/18 06:44 APTT 33 SECONDS (21-34) 06/04/18 06:44 - Constitutional Appears: Well - Head Exam Head Exam: ATRAUMATIC, NORMAL INSPECTION, NORMOCEPHALIC - Eye Exam Eye Exam: EOMI, Normal appearance, PERRL Pupil Exam: NORMAL ACCOMODATION, PERRL - ENT Exam ENT Exam: Mucous Membranes Moist, Normal Exam - Neck Exam Neck Exam: Full ROM, Normal Inspection. absent: Lymphadenopathy - Respiratory Exam Respiratory Exam: Decreased Breath Sounds - Cardiovascular Exam Cardiovascular Exam: +S1, +S2 - GI/Abdominal Exam GI & Abdominal Exam: Soft, Diminished Bowel Sounds - Rectal Exam Rectal Exam: Deferred - Neurological Exam Neurological Exam: Oriented x3 Assessment and Plan (1) Abdominal pain Status: Acute (2) Cholecystitis Status: Acute (3) Nausea Status: Acute (4) CVA, old, dysarthria Status: Acute (5) Contusion Status: Acute (6) Hyperglycemia Status: Acute (7) Ischemic stroke Status: Acute (8) Slurring of speech Status: Acute (9) Toothache Status: Acute (10) UTI (urinary tract infection) Status: Acute (11) Diabetes mellitus Status: Chronic (12) Hyperlipidemia Status: Chronic (13) Hypertension Status: Chronic - Assessment and Plan (Free Text) Plan: tool sample pending diarrhea resolved coreg davon moe florastor nephro-tran norvasc novolin R vancocin zofran inj zyvox
--- NOTE | 2018-06-13 15:12 | CP.PCM.PN ---
Subjective - Date & Time of Evaluation Date of Evaluation: 06/13/18 Time of Evaluation: 09:00 - Subjective Subjective: events noted IV rx in progress less abd pain' no fever ruq drain in place Objective - Vital Signs/Intake and Output Vital Signs (last 24 hours): Temp Pulse Resp BP Pulse Ox 98.1 F 62 20 145/66 97 06/13/18 07:00 06/13/18 07:00 06/13/18 07:00 06/13/18 07:00 06/13/18 07:00 Intake and Output: 06/13/18 06/13/18 06:59 18:59 Intake Total 800 920 Output Total 50 250 Balance 750 670 - Medications Medications: Current Medications Amlodipine Besylate (Norvasc) 10 mg PO DAILY [facility] Last Admin: 06/13/18 10:08 Dose: 10 mg Carvedilol (Coreg) 6.25 mg PO BID [facility] Last Admin: 06/13/18 10:08 Dose: 6.25 mg Dextrose (Dextrose 50% Inj) 0 ml IV STAT PRN; Protocol PRN Reason: Hypoglycemia Protocol Dextrose (Glutose 15) 0 gm PO ONCE PRN; Protocol PRN Reason: Hypoglycemia Protocol Epoetin Kody (Procrit) 4,000 unit SC MWF [facility] Stop: 06/19/18 09:01 Glucagon (Glucagen Diagnostic Kit) 0 mg IM STAT PRN; Protocol PRN Reason: Hypoglycemia Protocol Heparin Sodium (Porcine) (Heparin) 5,000 units SC Q8 [facility] Last Admin: 06/13/18 13:46 Dose: 5,000 units Metronidazole (Flagyl) 500 mg in 100 mls @ 100 mls/hr IVPB Q8H [facility]; Protocol Last Admin: 06/13/18 13:46 Dose: 100 mls/hr Linezolid (Zyvox 600mg/300ml D5w) 600 mg in 300 mls @ 200 mls/hr IVPB Q12H [facility]; Protocol Last Admin: 06/13/18 04:00 Dose: 200 mls/hr Insulin Human Regular (Novolin R) 0 unit SC ACHS [facility]; Protocol Last Admin: 06/13/18 12:49 Dose: 4 units Losartan Potassium (Cozaar) 25 mg PO DAILY [facility] Last Admin: 06/13/18 10:08 Dose: 25 mg Morphine Sulfate (Morphine) 2 mg IVP Q4 PRN PRN Reason: Pain, severe (8-10) Last Admin: 06/13/18 01:22 Dose: 2 mg Ondansetron HCl (Zofran Inj) 4 mg IVP Q4H PRN PRN Reason: Nausea/Vomiting Last Admin: 05/31/18 12:44 Dose: 4 mg Saccharomyces Boulardii (Florastor) 250 mg PO BID [facility] Last Admin: 06/13/18 10:08 Dose: 250 mg Vancomycin HCl (Vancocin 250mg Capsule) 250 mg PO QID [facility] Last Admin: 06/13/18 13:46 Dose: 250 mg - Labs Labs: 06/13/18 06:56 06/13/18 06:56 PT 13.1 SECONDS (9.7-12.2) H 06/04/18 06:44 INR 1.2 06/04/18 06:44 APTT 33 SECONDS (21-34) 06/04/18 06:44 - Constitutional Appears: Non-toxic, No Acute Distress, Confused, Chronically Ill - Head Exam Head Exam: ATRAUMATIC, NORMAL INSPECTION, NORMOCEPHALIC - Eye Exam Eye Exam: EOMI, Normal appearance, PERRL Pupil Exam: NORMAL ACCOMODATION, PERRL - ENT Exam ENT Exam: Mucous Membranes Moist, Normal Exam - Neck Exam Neck Exam: Full ROM, Normal Inspection. absent: Lymphadenopathy - Respiratory Exam Respiratory Exam: Clear to Ausculation Bilateral, NORMAL BREATHING PATTERN - Cardiovascular Exam Cardiovascular Exam: REGULAR RHYTHM, +S1, +S2. absent: Murmur - GI/Abdominal Exam GI & Abdominal Exam: Distended, Soft, Normal Bowel Sounds. absent: Tenderness - Rectal Exam Rectal Exam: Deferred - Extremities Exam Extremities Exam: Full ROM, Normal Capillary Refill, Normal Inspection. absent: Joint Swelling, Pedal Edema - Back Exam Back Exam: NORMAL INSPECTION - Neurological Exam Neurological Exam: Alert, Awake, CN II-XII Intact, Normal Gait, Oriented x3 - Psychiatric Exam Psychiatric exam: Normal Affect, Normal Mood - Skin Skin Exam: Dry, Intact, Normal Color, Warm Assessment and Plan (1) Abdominal pain Status: Acute (2) Cholecystitis Status: Acute (3) CVA, old, dysarthria Status: Acute (4) Cholangitis Status: Acute (5) Diabetes mellitus Status: Chronic (6) Hyperlipidemia Status: Chronic (7) Hypertension Status: Chronic (8) DORIS (acute kidney injury) Status: Acute - Assessment and Plan (Free Text) Assessment: cont iv rx as ordered follow CBC
--- NOTE | 2018-06-13 19:16 | CP.PCM.PN ---
Subjective - Date & Time of Evaluation Date of Evaluation: 06/13/18 Time of Evaluation: 07:05 - Subjective Subjective: patient examined today no nausea no vomiting no shortness of breath no dizziness no diarrhea Objective - Vital Signs/Intake and Output Vital Signs (last 24 hours): Temp Pulse Resp BP Pulse Ox 98.9 F 65 20 130/64 95 06/13/18 15:57 06/13/18 18:09 06/13/18 15:57 06/13/18 18:09 06/13/18 15:57 Intake and Output: 06/13/18 06/14/18 18:59 06:59 Intake Total 920 Output Total 250 Balance 670 - Medications Medications: Current Medications Amlodipine Besylate (Norvasc) 10 mg PO DAILY [facility] Last Admin: 06/13/18 10:08 Dose: 10 mg Carvedilol (Coreg) 6.25 mg PO BID [facility] Last Admin: 06/13/18 17:57 Dose: 6.25 mg Dextrose (Dextrose 50% Inj) 0 ml IV STAT PRN; Protocol PRN Reason: Hypoglycemia Protocol Dextrose (Glutose 15) 0 gm PO ONCE PRN; Protocol PRN Reason: Hypoglycemia Protocol Epoetin Kody (Procrit) 4,000 unit SC MWF [facility] Stop: 06/19/18 09:01 Glucagon (Glucagen Diagnostic Kit) 0 mg IM STAT PRN; Protocol PRN Reason: Hypoglycemia Protocol Heparin Sodium (Porcine) (Heparin) 5,000 units SC Q8 [facility] Last Admin: 06/13/18 13:46 Dose: 5,000 units Metronidazole (Flagyl) 500 mg in 100 mls @ 100 mls/hr IVPB Q8H [facility]; Protocol Last Admin: 06/13/18 13:46 Dose: 100 mls/hr Linezolid (Zyvox 600mg/300ml D5w) 600 mg in 300 mls @ 200 mls/hr IVPB Q12H [facility]; Protocol Last Admin: 06/13/18 16:12 Dose: 200 mls/hr Insulin Human Regular (Novolin R) 0 unit SC ACHS [facility]; Protocol Last Admin: 06/13/18 17:56 Dose: 2 units Losartan Potassium (Cozaar) 25 mg PO DAILY [facility] Last Admin: 06/13/18 10:08 Dose: 25 mg Ondansetron HCl (Zofran Inj) 4 mg IVP Q4H PRN PRN Reason: Nausea/Vomiting Last Admin: 05/31/18 12:44 Dose: 4 mg Saccharomyces Boulardii (Florastor) 250 mg PO BID [facility] Last Admin: 06/13/18 17:58 Dose: 250 mg Vancomycin HCl (Vancocin 250mg Capsule) 250 mg PO QID [facility] Last Admin: 06/13/18 18:01 Dose: 250 mg - Labs Labs: 06/13/18 06:56 06/13/18 06:56 PT 13.1 SECONDS (9.7-12.2) H 06/04/18 06:44 INR 1.2 06/04/18 06:44 APTT 33 SECONDS (21-34) 06/04/18 06:44 - Constitutional Appears: Well - Head Exam Head Exam: ATRAUMATIC, NORMAL INSPECTION, NORMOCEPHALIC - Eye Exam Eye Exam: EOMI, Normal appearance, PERRL Pupil Exam: NORMAL ACCOMODATION, PERRL - ENT Exam ENT Exam: Mucous Membranes Moist, Normal Exam - Neck Exam Neck Exam: Full ROM, Normal Inspection. absent: Lymphadenopathy - Respiratory Exam Respiratory Exam: Decreased Breath Sounds - Cardiovascular Exam Cardiovascular Exam: REGULAR RHYTHM, +S1, +S2 - GI/Abdominal Exam GI & Abdominal Exam: Soft, Diminished Bowel Sounds - Rectal Exam Rectal Exam: Deferred - Neurological Exam Neurological Exam: Oriented x3 Assessment and Plan (1) Abdominal pain Status: Acute (2) Cholecystitis Status: Acute (3) Nausea Status: Acute (4) CVA, old, dysarthria Status: Acute (5) Contusion Status: Acute (6) Hyperglycemia Status: Acute (7) Ischemic stroke Status: Acute (8) Slurring of speech Status: Acute (9) Toothache Status: Acute (10) UTI (urinary tract infection) Status: Acute (11) Diabetes mellitus Status: Chronic (12) Hyperlipidemia Status: Chronic (13) Hypertension Status: Chronic - Assessment and Plan (Free Text) Plan: medications reviewed labs reviewed vital reviewed coreg davon moe florastor nephro-tran norvasc novolin R vancocin zofran inj zyvox
[2018-06-14] MEDS: Linezolid 600 mg in D5W 300 ml 600 MG/300 ML BAG IVPB SCH ×2 (04:00→16:16)
[2018-06-14] MEDS: metroNIDAZOLE IV 500 mg/100 ml 500 MG/100 ML BAG IVPB SCH ×3 (06:00→21:07)
[2018-06-14] MEDS: (Novolin R) Insulin Human Regular 100 units/ml vial SC SCH ×4 (07:37→21:03)
[2018-06-14 08:14] LABS: BASO # 0.2 K/uL (0.0-0.2); BASO % 1.2 % (0.0-2.0); EOS # 0.8 K/uL (0.0-0.7); EOS % 5.8 % (0.0-4.0); HEMOGLOBIN 9.9 g/dL (11.0-16.0); LYMPH # 2.1 K/uL (1.0-4.3); LYMPH % 16.1 % (20.0-40.0); MEAN CELL VOLUME 79.4 fL (81.0-99.0); MEAN CORPUSCULAR HEMOGLOBIN 25.5 pg (27.0-31.0); MEAN CORPUSCULAR HGB CONC 32.1 g/dL (33.0-37.0); MEAN PLATELET VOLUME 9.2 fL (7.2-11.7); MONO # 0.8 K/uL (0.0-0.8); MONO % 5.7 % (0.0-10.0); NEUT # 9.5 K/uL (1.8-7.0); NEUT % 71.2 % (50.0-75.0); RBC 3.87 Mil/uL (3.80-5.20); RED CELL DISTRIBUTION WIDTH 15.5 % (11.5-14.5); WHITE BLOOD COUNT 13.3 K/uL (4.8-10.8)
[2018-06-14 08:22] LABS: ALB/GLOB RATIO 0.8 (1.0-2.1); ALBUMIN 2.7 g/dL (3.5-5.0)
[2018-06-14] MEDS: Saccharomyces Boulardi 250 mg Cap PO SCH ×2 (09:29→17:31)
[2018-06-14] MEDS: Vancomycin Hydrochloride 250 mg Capsule (Oral) PO SCH ×4 (09:29→21:06)
--- NOTE | 2018-06-14 11:55 | CP.PCM.PN ---
Subjective - Date & Time of Evaluation Date of Evaluation: 06/14/18 Time of Evaluation: 11:55 - Subjective Subjective: Nephrology Consultation Note: Assessment: stable acute cholecystitis Acute Kidney Injury (N17.9) likely hemodynamic due to sepsis/ATN, BP fluctuations, limited oral intake: IMPROVED Diabetic chronic Kidney Disease (E11.22) Hypertensive Chronic Kidney Disease (I12.9) with HTN urgency Chronic Kidney Disease (N18.3) Stage 3 with ? mg proteinuria (R80.9) likely due to DM/HTN Anemia (D64.9), severe pHTN with severe TR. Plan No acute need for renal replacement therapy at this time. anticipate spontaneous and gradual renal recovery pt had cholecystotomy tube placement by IR 06/04/18. gall bladder surgery was deferred but can proceed from renal perspective as BP controlled, renal fxn stable. pulmonary following. respi status improved. Hypertension control with meds as ordered. Maintain hemodynamics stable. Avoid hypotension. held ACEI/ARB due to recent DORIS, will resume.continue same Monitor Input/Output, daily weights and renal function with basic metabolic panel cardiology, ID surgery following supplement lytes as needed epogen MWF for few days added. lasix as needed can be given Dose meds/antibiotics for reduced GFR. Avoid fleets enema/magnesium based laxatives. Avoid nephrotoxins/NSAIDs/ iodinated contrast (unless needed emergently) Glycemic control Further work up/management as per primary team Thanks for allowing me to participate in care of your patient. Will follow patient with you. Please call if any Qs. had d/w team and daughter Dr Ruiz Choi Office: [phone] Chief Complaint; cholecytitis Reason for consult: Acute Kidney Injury HPI: Pt is a 67 F with hx of diabetes Mellitus ( years), hypertension (years) CVA presented with complaints of abdomen pain and found to have Acute cholecysitis. also with severe pHTN with severe TR. Denies OTC/herbal meds or NSAIDs No recent iodinated contrast exposure. No obvious episodes of low BP but noted fluctuations. episode of bp in 200+ noted pt not aware about kidney disease in past. baseline cr 1.0-1.4 likely reporesent underlying CKD 3 ROS: Cardiovascular: No chest pain. Pulmonary: denies shortness of breath Gastrointestinal: denies abdominal pain No nausea. No vomiting. Genitourinary: No pain while urinating. Denies blood in urine. All other negative except as mentioned in HPI Physical Examination: General Appearance: Comfortable, in no acute respiratory distress, co-operative . better appearing. on o2 via NC Vitals reviewed and noted as below Head; Atraumatic, normocephalic ENT: no ulcers no thrush. Tongue is midline. Oropharynx: no rash or ulcers. EYES: Rt eye unable to see. Eye muscles and extraocular movement intact. Sclera is anicteric. Neck; supple no lymphadenopathy, no thyromegaly or bruit Lungs: Normal respiratory rate/effort. Breath sounds improved at Rt base Heart: Normal rate. s1s2 normal. No rub or gallop. Extremities: no edema. No varicose veins Neurological: Patient is alert, awake and oriented. speech impaired due to stroke hx Skin: Warm and dry. Normal turgor. No rash. Palpitation: Normal elasticity for age Abdomen: Abdomen is soft/distended. Bowel sounds +. There is no abdominal tenderness, no guarding/rigidity no organomegaly Psych: lack insight and has normal affect/mood MSK: no joint tenderness or swelling. Digits and nails normal, no deformity : kidney or bladder not palpable Labs/imaging reviewed. Past medical history, past surgical history, family history, social history, allergy reviewed and noted as below Family hx: no hx of CKD. Rest non-contributory UA 2+ protein and 1+ blood renal imaging okay on sono but MRCP reported renal atrophy Objective - Vital Signs/Intake and Output Vital Signs (last 24 hours): Temp Pulse Resp BP Pulse Ox 97.5 F L 59 L 20 139/61 96 06/14/18 08:20 06/14/18 08:20 06/14/18 08:20 06/14/18 08:20 06/14/18 08:20 Intake and Output: 06/14/18 06/14/18 06:59 18:59 Intake Total 1500 Output Total 50 Balance 1450 - Medications Medications: Current Medications Amlodipine Besylate (Norvasc) 10 mg PO DAILY [facility] Last Admin: 06/14/18 09:29 Dose: 10 mg Carvedilol (Coreg) 6.25 mg PO BID [facility] Last Admin: 06/14/18 09:29 Dose: 6.25 mg Dextrose (Dextrose 50% Inj) 0 ml IV STAT PRN; Protocol PRN Reason: Hypoglycemia Protocol Dextrose (Glutose 15) 0 gm PO ONCE PRN; Protocol PRN Reason: Hypoglycemia Protocol Epoetin Kody (Procrit) 4,000 unit SC MWF [facility] Stop: 06/19/18 09:01 Ferrous Gluconate (Fergon) 324 mg PO TID [facility] Last Admin: 06/14/18 10:04 Dose: 324 mg Glucagon (Glucagen Diagnostic Kit) 0 mg IM STAT PRN; Protocol PRN Reason: Hypoglycemia Protocol Heparin Sodium (Porcine) (Heparin) 5,000 units SC Q8 [facility] Last Admin: 06/14/18 07:00 Dose: 5,000 units Metronidazole (Flagyl) 500 mg in 100 mls @ 100 mls/hr IVPB Q8H [facility]; Protocol Last Admin: 06/14/18 06:00 Dose: 100 mls/hr Linezolid (Zyvox 600mg/300ml D5w) 600 mg in 300 mls @ 200 mls/hr IVPB Q12H [facility]; Protocol Last Admin: 06/14/18 04:00 Dose: 200 mls/hr Insulin Human Regular (Novolin R) 0 unit SC ACHS [facility]; Protocol Last Admin: 06/14/18 11:34 Dose: Not Given Losartan Potassium (Cozaar) 25 mg PO DAILY [facility] Last Admin: 06/14/18 09:30 Dose: 25 mg Ondansetron HCl (Zofran Inj) 4 mg IVP Q4H PRN PRN Reason: Nausea/Vomiting Last Admin: 05/31/18 12:44 Dose: 4 mg Saccharomyces Boulardii (Florastor) 250 mg PO BID [facility] Last Admin: 06/14/18 09:29 Dose: 250 mg Vancomycin HCl (Vancocin 250mg Capsule) 250 mg PO QID [facility] Last Admin: 06/14/18 09:29 Dose: 250 mg Vitamin B Complex/Vit C/Folic Acid (Nephro-Thaddeus) 1 tab PO 0800 [facility] - Labs Labs: 06/14/18 07:50 06/14/18 07:50 PT 13.1 SECONDS (9.7-12.2) H 06/04/18 06:44 INR 1.2 06/04/18 06:44 APTT 33 SECONDS (21-34) 06/04/18 06:44
--- NOTE | 2018-06-14 14:01 | CP.PCM.PN ---
Subjective - Date & Time of Evaluation Date of Evaluation: 06/14/18 Time of Evaluation: 14:00 - Subjective Subjective: Pulmonary follow up, Covering Dr Duenas The Patient was seen and examined at the bedside, Medical records reviewed, and management issues were discussed and formulated with the house staff. Events reviewed Objective - Vital Signs/Intake and Output Vital Signs (last 24 hours): Temp Pulse Resp BP Pulse Ox 97.5 F L 59 L 20 139/61 96 06/14/18 08:20 06/14/18 08:20 06/14/18 08:20 06/14/18 08:20 06/14/18 08:20 Intake and Output: 06/14/18 06/14/18 06:59 18:59 Intake Total 1500 300 Output Total 50 Balance 1450 300 - Medications Medications: Current Medications Amlodipine Besylate (Norvasc) 10 mg PO DAILY [facility] Last Admin: 06/14/18 09:29 Dose: 10 mg Carvedilol (Coreg) 6.25 mg PO BID [facility] Last Admin: 06/14/18 09:29 Dose: 6.25 mg Dextrose (Dextrose 50% Inj) 0 ml IV STAT PRN; Protocol PRN Reason: Hypoglycemia Protocol Dextrose (Glutose 15) 0 gm PO ONCE PRN; Protocol PRN Reason: Hypoglycemia Protocol Epoetin Kody (Procrit) 4,000 unit SC MWF [facility] Stop: 06/19/18 09:01 Ferrous Gluconate (Fergon) 324 mg PO TID [facility] Last Admin: 06/14/18 13:16 Dose: 324 mg Glucagon (Glucagen Diagnostic Kit) 0 mg IM STAT PRN; Protocol PRN Reason: Hypoglycemia Protocol Heparin Sodium (Porcine) (Heparin) 5,000 units SC Q8 [facility] Last Admin: 06/14/18 13:18 Dose: 5,000 units Metronidazole (Flagyl) 500 mg in 100 mls @ 100 mls/hr IVPB Q8H [facility]; Protocol Last Admin: 06/14/18 13:20 Dose: 100 mls/hr Linezolid (Zyvox 600mg/300ml D5w) 600 mg in 300 mls @ 200 mls/hr IVPB Q12H [facility]; Protocol Last Admin: 06/14/18 04:00 Dose: 200 mls/hr Insulin Human Regular (Novolin R) 0 unit SC ACHS [facility]; Protocol Last Admin: 06/14/18 11:34 Dose: Not Given Losartan Potassium (Cozaar) 25 mg PO DAILY [facility] Last Admin: 06/14/18 09:30 Dose: 25 mg Ondansetron HCl (Zofran Inj) 4 mg IVP Q4H PRN PRN Reason: Nausea/Vomiting Last Admin: 05/31/18 12:44 Dose: 4 mg Saccharomyces Boulardii (Florastor) 250 mg PO BID [facility] Last Admin: 06/14/18 09:29 Dose: 250 mg Vancomycin HCl (Vancocin 250mg Capsule) 250 mg PO QID [facility] Last Admin: 06/14/18 13:18 Dose: 250 mg Vitamin B Complex/Vit C/Folic Acid (Nephro-Thaddeus) 1 tab PO 0800 [facility] - Labs Labs: 06/14/18 07:50 06/14/18 07:50 PT 13.1 SECONDS (9.7-12.2) H 06/04/18 06:44 INR 1.2 06/04/18 06:44 APTT 33 SECONDS (21-34) 06/04/18 06:44
--- NOTE | 2018-06-14 15:54 | CP.PCM.PN ---
Subjective - Date & Time of Evaluation Date of Evaluation: 06/14/18 Time of Evaluation: 10:00 - Subjective Subjective: patient seen today no nausea no diarrhea no vomiting no fever no dizziness no shortness of breath Objective - Vital Signs/Intake and Output Vital Signs (last 24 hours): Temp Pulse Resp BP Pulse Ox 97.5 F L 59 L 20 139/61 96 06/14/18 08:20 06/14/18 08:20 06/14/18 08:20 06/14/18 08:20 06/14/18 08:20 Intake and Output: 06/14/18 06/14/18 06:59 18:59 Intake Total 1500 300 Output Total 50 Balance 1450 300 - Medications Medications: Current Medications Amlodipine Besylate (Norvasc) 10 mg PO DAILY [facility] Last Admin: 06/14/18 09:29 Dose: 10 mg Carvedilol (Coreg) 6.25 mg PO BID [facility] Last Admin: 06/14/18 09:29 Dose: 6.25 mg Dextrose (Dextrose 50% Inj) 0 ml IV STAT PRN; Protocol PRN Reason: Hypoglycemia Protocol Dextrose (Glutose 15) 0 gm PO ONCE PRN; Protocol PRN Reason: Hypoglycemia Protocol Epoetin Kody (Procrit) 4,000 unit SC MWF [facility] Stop: 06/19/18 09:01 Ferrous Gluconate (Fergon) 324 mg PO TID [facility] Last Admin: 06/14/18 13:16 Dose: 324 mg Glucagon (Glucagen Diagnostic Kit) 0 mg IM STAT PRN; Protocol PRN Reason: Hypoglycemia Protocol Heparin Sodium (Porcine) (Heparin) 5,000 units SC Q8 [facility] Last Admin: 06/14/18 13:18 Dose: 5,000 units Metronidazole (Flagyl) 500 mg in 100 mls @ 100 mls/hr IVPB Q8H [facility]; Protocol Last Admin: 06/14/18 13:20 Dose: 100 mls/hr Linezolid (Zyvox 600mg/300ml D5w) 600 mg in 300 mls @ 200 mls/hr IVPB Q12H [facility]; Protocol Last Admin: 06/14/18 04:00 Dose: 200 mls/hr Insulin Human Regular (Novolin R) 0 unit SC ACHS [facility]; Protocol Last Admin: 06/14/18 11:34 Dose: Not Given Losartan Potassium (Cozaar) 25 mg PO DAILY [facility] Last Admin: 06/14/18 09:30 Dose: 25 mg Ondansetron HCl (Zofran Inj) 4 mg IVP Q4H PRN PRN Reason: Nausea/Vomiting Last Admin: 05/31/18 12:44 Dose: 4 mg Saccharomyces Boulardii (Florastor) 250 mg PO BID [facility] Last Admin: 06/14/18 09:29 Dose: 250 mg Vancomycin HCl (Vancocin 250mg Capsule) 250 mg PO QID [facility] Last Admin: 06/14/18 13:18 Dose: 250 mg Vitamin B Complex/Vit C/Folic Acid (Nephro-Tran) 1 tab PO 0800 [facility] - Labs Labs: 06/14/18 07:50 06/14/18 07:50 PT 13.1 SECONDS (9.7-12.2) H 06/04/18 06:44 INR 1.2 06/04/18 06:44 APTT 33 SECONDS (21-34) 06/04/18 06:44 - Constitutional Appears: Well - Head Exam Head Exam: ATRAUMATIC, NORMAL INSPECTION, NORMOCEPHALIC - Eye Exam Eye Exam: EOMI, Normal appearance, PERRL Pupil Exam: NORMAL ACCOMODATION, PERRL - ENT Exam ENT Exam: Mucous Membranes Moist, Normal Exam - Neck Exam Neck Exam: Full ROM, Normal Inspection. absent: Lymphadenopathy - Respiratory Exam Respiratory Exam: Decreased Breath Sounds - Cardiovascular Exam Cardiovascular Exam: REGULAR RHYTHM, +S1, +S2 - GI/Abdominal Exam GI & Abdominal Exam: Soft, Diminished Bowel Sounds - Rectal Exam Rectal Exam: Deferred - Neurological Exam Neurological Exam: Oriented x3 Assessment and Plan (1) Abdominal pain Status: Acute (2) Cholecystitis Status: Acute (3) Nausea Status: Acute (4) CVA, old, dysarthria Status: Acute (5) Contusion Status: Acute (6) Hyperglycemia Status: Acute (7) Ischemic stroke Status: Acute (8) Slurring of speech Status: Acute (9) Toothache Status: Acute (10) UTI (urinary tract infection) Status: Acute (11) Diabetes mellitus Status: Chronic (12) Hyperlipidemia Status: Chronic (13) Hypertension Status: Chronic - Assessment and Plan (Free Text) Plan: medications reviewed labs reviewed vitals reviewed celso moe florastor nephro-tran norvasc novolin R vancocin zofran inj zyvox
[2018-06-15] MEDS: Linezolid 600 mg in D5W 300 ml 600 MG/300 ML BAG IVPB SCH ×2 (04:05→17:22)
[2018-06-15] MEDS: metroNIDAZOLE IV 500 mg/100 ml 500 MG/100 ML BAG IVPB SCH ×3 (05:43→21:24)
[2018-06-15 06:57] LABS: BASO # 0.1 K/uL (0.0-0.2); BASO % 0.8 % (0.0-2.0); EOS # 0.7 K/uL (0.0-0.7); EOS % 4.7 % (0.0-4.0); HEMOGLOBIN 10.3 g/dL (11.0-16.0); LYMPH # 1.8 K/uL (1.0-4.3); LYMPH % 12.6 % (20.0-40.0); MEAN CELL VOLUME 79.5 fL (81.0-99.0); MEAN CORPUSCULAR HEMOGLOBIN 25.4 pg (27.0-31.0); MONO # 0.7 K/uL (0.0-0.8); MONO % 5.1 % (0.0-10.0); NEUT # 10.8 K/uL (1.8-7.0); NEUT % 76.8 % (50.0-75.0); RBC 4.06 Mil/uL (3.80-5.20); RED CELL DISTRIBUTION WIDTH 15.6 % (11.5-14.5); WHITE BLOOD COUNT 14.1 K/uL (4.8-10.8)
[2018-06-15 07:47] LABS: ALB/GLOB RATIO 0.9 (1.0-2.1); ALBUMIN 2.7 g/dL (3.5-5.0); CALCIUM 8.3 mg/dl (8.6-10.4)
[2018-06-15] MEDS: (Novolin R) Insulin Human Regular 100 units/ml vial SC SCH ×4 (08:27→21:03)
[2018-06-15] MEDS: Multivitamin Vitamin B Complex (Nephro-Vite) Tab PO SCH (08:28)
[2018-06-15] MEDS ORDERED: EPOETIN ALFA 4,000 UNIT/ML ML Dialysis SC SCH (09:00)
[2018-06-15] MEDS: Saccharomyces Boulardi 250 mg Cap PO SCH ×2 (10:12→17:23)
[2018-06-15] MEDS: Vancomycin Hydrochloride 250 mg Capsule (Oral) PO SCH ×4 (10:45→21:25)
--- NOTE | 2018-06-15 11:03 | CP.PCM.PN ---
Subjective - Date & Time of Evaluation Date of Evaluation: 06/15/18 Time of Evaluation: 11:02 - Subjective Subjective: Nephrology Consultation Note: Assessment: stable acute cholecystitis Acute Kidney Injury (N17.9) likely hemodynamic due to sepsis/ATN, BP fluctuations, limited oral intake: IMPROVED Diabetic chronic Kidney Disease (E11.22) Hypertensive Chronic Kidney Disease (I12.9) with HTN urgency Chronic Kidney Disease (N18.3) Stage 3 with ? mg proteinuria (R80.9) likely due to DM/HTN Anemia (D64.9), severe pHTN with severe TR. Plan No acute need for renal replacement therapy at this time. anticipate spontaneous and gradual renal recovery pt had cholecystotomy tube placement by IR 06/04/18. gall bladder surgery was deferred but can proceed from renal perspective, when planned [BP controlled, renal fxn stable] pulmonary following. respi status improved. Hypertension control with meds as ordered. Maintain hemodynamics stable. Avoid hypotension. held ACEI/ARB due to recent DORIS, will resume.continue same Monitor Input/Output, daily weights and renal function with basic metabolic panel cardiology, ID surgery following supplement lytes as needed Dose meds/antibiotics for reduced GFR. Avoid fleets enema/magnesium based laxatives. Avoid nephrotoxins/NSAIDs/ iodinated contrast (unless needed emergently) Glycemic control Further work up/management as per primary team Thanks for allowing me to participate in care of your patient. Will follow patient with you. Please call if any Qs. had d/w team and daughter Dr Ruiz Choi Office: [phone] Chief Complaint; cholecytitis Reason for consult: Acute Kidney Injury HPI: Pt is a 67 F with hx of diabetes Mellitus ( years), hypertension (years) CVA presented with complaints of abdomen pain and found to have Acute cholecysitis. also with severe pHTN with severe TR. Denies OTC/herbal meds or NSAIDs No recent iodinated contrast exposure. No obvious episodes of low BP but noted fluctuations. episode of bp in 200+ noted pt not aware about kidney disease in past. baseline cr 1.0-1.4 likely reporesent underlying CKD 3 ROS: Cardiovascular: No chest pain. Pulmonary: denies shortness of breath Gastrointestinal: denies abdominal pain No nausea. No vomiting. Genitourinary: No pain while urinating. Denies blood in urine. All other negative except as mentioned in HPI Physical Examination: General Appearance: Comfortable, in no acute respiratory distress, co-operative . better appearing. on o2 via NC Vitals reviewed and noted as below Head; Atraumatic, normocephalic ENT: no ulcers no thrush. Tongue is midline. Oropharynx: no rash or ulcers. EYES: Rt eye unable to see. Eye muscles and extraocular movement intact. Sclera is anicteric. Neck; supple no lymphadenopathy, no thyromegaly or bruit Lungs: Normal respiratory rate/effort. Breath sounds b/l clear Heart: Normal rate. s1s2 normal. No rub or gallop. Extremities: no edema. No varicose veins Neurological: Patient is alert, awake and oriented. speech impaired due to stroke hx Skin: Warm and dry. Normal turgor. No rash. Palpitation: Normal elasticity for age Abdomen: Abdomen is soft/distended. Bowel sounds +. There is no abdominal tenderness, no guarding/rigidity no organomegaly Psych: lack insight and has normal affect/mood MSK: no joint tenderness or swelling. Digits and nails normal, no deformity : kidney or bladder not palpable Labs/imaging reviewed. Past medical history, past surgical history, family history, social history, allergy reviewed and noted as below Family hx: no hx of CKD. Rest non-contributory UA 2+ protein and 1+ blood renal imaging okay on sono but MRCP reported renal atrophy Objective - Vital Signs/Intake and Output Vital Signs (last 24 hours): Temp Pulse Resp BP Pulse Ox 98.4 F 62 20 151/65 H 98 06/15/18 07:10 06/15/18 07:10 06/15/18 07:10 06/15/18 07:10 06/15/18 07:10 Intake and Output: 06/15/18 06/15/18 06:59 18:59 Intake Total 1190 Output Total 40 Balance 1150 - Medications Medications: Current Medications Amlodipine Besylate (Norvasc) 10 mg PO DAILY [facility] Last Admin: 06/15/18 10:13 Dose: 10 mg Carvedilol (Coreg) 6.25 mg PO BID [facility] Last Admin: 06/15/18 10:12 Dose: 6.25 mg Ferrous Gluconate (Fergon) 324 mg PO TID [facility] Last Admin: 06/15/18 10:13 Dose: 324 mg Heparin Sodium (Porcine) (Heparin) 5,000 units SC Q8 [facility] Last Admin: 06/15/18 05:43 Dose: 5,000 units Metronidazole (Flagyl) 500 mg in 100 mls @ 100 mls/hr IVPB Q8H [facility]; Protocol Last Admin: 06/15/18 05:43 Dose: 100 mls/hr Linezolid (Zyvox 600mg/300ml D5w) 600 mg in 300 mls @ 200 mls/hr IVPB Q12H [facility]; Protocol Last Admin: 06/15/18 04:05 Dose: 200 mls/hr Insulin Human Regular (Novolin R) 0 unit SC ACHS [facility]; Protocol Last Admin: 06/15/18 08:27 Dose: 2 units Losartan Potassium (Cozaar) 25 mg PO DAILY [facility] Last Admin: 06/15/18 10:12 Dose: 25 mg Saccharomyces Boulardii (Florastor) 250 mg PO BID [facility] Last Admin: 06/15/18 10:12 Dose: 250 mg Vancomycin HCl (Vancocin 250mg Capsule) 250 mg PO QID [facility] Last Admin: 06/15/18 10:45 Dose: 250 mg Vitamin B Complex/Vit C/Folic Acid (Nephro-Thaddeus) 1 tab PO 0800 [facility] Last Admin: 06/15/18 08:28 Dose: 1 tab - Labs Labs: 06/15/18 06:47 06/15/18 06:47 PT 13.1 SECONDS (9.7-12.2) H 06/04/18 06:44 INR 1.2 06/04/18 06:44 APTT 33 SECONDS (21-34) 06/04/18 06:44
--- NOTE | 2018-06-15 17:50 | CP.PCM.PN ---
Objective - Vital Signs/Intake and Output Vital Signs (last 24 hours): Temp Pulse Resp BP Pulse Ox 97.5 F L 61 20 143/60 95 06/15/18 16:37 06/15/18 16:37 06/15/18 16:37 06/15/18 16:37 06/15/18 16:37 Intake and Output: 06/15/18 06/15/18 06:59 18:59 Intake Total 1190 340 Output Total 40 15 Balance 1150 325 - Medications Medications: Current Medications Amlodipine Besylate (Norvasc) 10 mg PO DAILY [facility] Last Admin: 06/15/18 10:13 Dose: 10 mg Carvedilol (Coreg) 6.25 mg PO BID [facility] Last Admin: 06/15/18 17:23 Dose: 6.25 mg Ferrous Gluconate (Fergon) 324 mg PO TID [facility] Last Admin: 06/15/18 17:23 Dose: 324 mg Metronidazole (Flagyl) 500 mg in 100 mls @ 100 mls/hr IVPB Q8H [facility]; Protocol Last Admin: 06/15/18 14:19 Dose: 100 mls/hr Linezolid (Zyvox 600mg/300ml D5w) 600 mg in 300 mls @ 200 mls/hr IVPB Q12H [facility]; Protocol Last Admin: 06/15/18 17:22 Dose: 200 mls/hr Insulin Human Regular (Novolin R) 0 unit SC ACHS [facility]; Protocol Last Admin: 06/15/18 16:09 Dose: Not Given Losartan Potassium (Cozaar) 25 mg PO DAILY [facility] Last Admin: 06/15/18 10:12 Dose: 25 mg Saccharomyces Boulardii (Florastor) 250 mg PO BID [facility] Last Admin: 06/15/18 17:23 Dose: 250 mg Vancomycin HCl (Vancocin 250mg Capsule) 250 mg PO QID [facility] Last Admin: 06/15/18 17:23 Dose: 250 mg Vitamin B Complex/Vit C/Folic Acid (Nephro-Thaddeus) 1 tab PO 0800 [facility] Last Admin: 06/15/18 08:28 Dose: 1 tab - Labs Labs: 06/15/18 06:47 06/15/18 06:47 PT 13.1 SECONDS (9.7-12.2) H 06/04/18 06:44 INR 1.2 06/04/18 06:44 APTT 33 SECONDS (21-34) 06/04/18 06:44 Assessment and Plan - Assessment and Plan (Free Text) Assessment: Patient admitted with abdominal pain, acute kleber,
--- NOTE | 2018-06-15 18:58 | CP.PCM.PN ---
Subjective - Date & Time of Evaluation Date of Evaluation: 06/15/18 - Subjective Subjective: patient seen today no vomiting no diarrhea no dizziness no fever no shortness of breath no nausea Objective - Vital Signs/Intake and Output Vital Signs (last 24 hours): Temp Pulse Resp BP Pulse Ox 97.5 F L 61 20 143/60 95 06/15/18 16:37 06/15/18 16:37 06/15/18 16:37 06/15/18 16:37 06/15/18 16:37 Intake and Output: 06/15/18 06/15/18 06:59 18:59 Intake Total 1190 340 Output Total 40 15 Balance 1150 325 - Medications Medications: Current Medications Amlodipine Besylate (Norvasc) 10 mg PO DAILY [facility] Last Admin: 06/15/18 10:13 Dose: 10 mg Carvedilol (Coreg) 6.25 mg PO BID [facility] Last Admin: 06/15/18 17:23 Dose: 6.25 mg Ferrous Gluconate (Fergon) 324 mg PO TID [facility] Last Admin: 06/15/18 17:23 Dose: 324 mg Metronidazole (Flagyl) 500 mg in 100 mls @ 100 mls/hr IVPB Q8H [facility]; Protocol Last Admin: 06/15/18 14:19 Dose: 100 mls/hr Linezolid (Zyvox 600mg/300ml D5w) 600 mg in 300 mls @ 200 mls/hr IVPB Q12H [facility]; Protocol Last Admin: 06/15/18 17:22 Dose: 200 mls/hr Insulin Human Regular (Novolin R) 0 unit SC ACHS [facility]; Protocol Last Admin: 06/15/18 16:09 Dose: Not Given Losartan Potassium (Cozaar) 25 mg PO DAILY [facility] Last Admin: 06/15/18 10:12 Dose: 25 mg Saccharomyces Boulardii (Florastor) 250 mg PO BID [facility] Last Admin: 06/15/18 17:23 Dose: 250 mg Vancomycin HCl (Vancocin 250mg Capsule) 250 mg PO QID [facility] Last Admin: 06/15/18 17:23 Dose: 250 mg Vitamin B Complex/Vit C/Folic Acid (Nephro-Tran) 1 tab PO 0800 [facility] Last Admin: 06/15/18 08:28 Dose: 1 tab - Labs Labs: 06/15/18 06:47 06/15/18 06:47 PT 13.1 SECONDS (9.7-12.2) H 06/04/18 06:44 INR 1.2 06/04/18 06:44 APTT 33 SECONDS (21-34) 06/04/18 06:44 - Constitutional Appears: Well - Head Exam Head Exam: ATRAUMATIC, NORMAL INSPECTION, NORMOCEPHALIC - Eye Exam Eye Exam: EOMI, Normal appearance, PERRL Pupil Exam: NORMAL ACCOMODATION, PERRL - ENT Exam ENT Exam: Mucous Membranes Moist, Normal Exam - Neck Exam Neck Exam: Full ROM, Normal Inspection. absent: Lymphadenopathy - Respiratory Exam Respiratory Exam: Decreased Breath Sounds - Cardiovascular Exam Cardiovascular Exam: REGULAR RHYTHM, +S1, +S2 - GI/Abdominal Exam GI & Abdominal Exam: Soft, Diminished Bowel Sounds - Rectal Exam Rectal Exam: Deferred - Neurological Exam Neurological Exam: Oriented x3 Assessment and Plan (1) Abdominal pain Status: Acute (2) Cholecystitis Status: Acute (3) Nausea Status: Acute (4) CVA, old, dysarthria Status: Acute (5) Contusion Status: Acute (6) Hyperglycemia Status: Acute (7) Ischemic stroke Status: Acute (8) Slurring of speech Status: Acute (9) Toothache Status: Acute (10) UTI (urinary tract infection) Status: Acute (11) Diabetes mellitus Status: Chronic (12) Hyperlipidemia Status: Chronic (13) Hypertension Status: Chronic - Assessment and Plan (Free Text) Plan: labs reviewed medications reviewed vitals reviewed coreg davon moe florastor nephro-tran norvasc novolin R vancocin zofran inj zyvox
[2018-06-16] MEDS: Linezolid 600 mg in D5W 300 ml 600 MG/300 ML BAG IVPB SCH ×2 (04:27→17:40)
[2018-06-16] MEDS: metroNIDAZOLE IV 500 mg/100 ml 500 MG/100 ML BAG IVPB SCH ×3 (05:54→21:57)
[2018-06-16 06:50] LABS: BASO % 0.3 % (0.0-2.0); EOS # 0.4 K/uL (0.0-0.7); EOS % 3.5 % (0.0-4.0); HEMOGLOBIN 10.2 g/dL (11.0-16.0); LYMPH # 1.6 K/uL (1.0-4.3); LYMPH % 12.9 % (20.0-40.0); MEAN CELL VOLUME 79.3 fL (81.0-99.0); MEAN CORPUSCULAR HEMOGLOBIN 26.2 pg (27.0-31.0); MEAN PLATELET VOLUME 8.6 fL (7.2-11.7); MONO # 0.6 K/uL (0.0-0.8); MONO % 4.7 % (0.0-10.0); NEUT # 9.5 K/uL (1.8-7.0); NEUT % 78.6 % (50.0-75.0); RBC 3.9 Mil/uL (3.80-5.20); RED CELL DISTRIBUTION WIDTH 16.3 % (11.5-14.5); WHITE BLOOD COUNT 12.1 K/uL (4.8-10.8)
[2018-06-16 07:26] LABS: ALB/GLOB RATIO 0.9 (1.0-2.1)
[2018-06-16 07:41] LABS: ALBUMIN 2.7 g/dL (3.5-5.0); CALCIUM 8.1 mg/dl (8.6-10.4)
[2018-06-16] MEDS: (Novolin R) Insulin Human Regular 100 units/ml vial SC SCH ×4 (08:28→22:01)
[2018-06-16] MEDS: Multivitamin Vitamin B Complex (Nephro-Vite) Tab PO SCH (08:30)
[2018-06-16] MEDS: Vancomycin Hydrochloride 250 mg Capsule (Oral) PO SCH ×6 (10:18→22:00)
[2018-06-16] MEDS: Saccharomyces Boulardi 250 mg Cap PO SCH ×4 (10:19→17:41)
--- NOTE | 2018-06-16 12:03 | CP.PCM.PN ---
Subjective - Date & Time of Evaluation Date of Evaluation: 06/16/18 Time of Evaluation: 12:02 - Subjective Subjective: Nephrology Consultation Note: Assessment: stable acute cholecystitis Acute Kidney Injury (N17.9) likely hemodynamic due to sepsis/ATN, BP fluctuations, limited oral intake: IMPROVED Diabetic chronic Kidney Disease (E11.22) Hypertensive Chronic Kidney Disease (I12.9) with HTN urgency Chronic Kidney Disease (N18.3) Stage 3 with ? mg proteinuria (R80.9) likely due to DM/HTN Anemia (D64.9), severe pHTN with severe TR. Plan No acute need for renal replacement therapy at this time. renal function stable pt had cholecystotomy tube placement by IR 06/04/18. gall bladder surgery was deferred but can proceed from renal perspective, when planned [BP controlled, renal fxn stable]. recommend surgical follow up since pt with nausea/vomiting today. d/w RN pulmonary following. respi status improved. Hypertension control with meds as ordered. Maintain hemodynamics stable. Avoid hypotension. held ACEI/ARB due to recent DORIS, will resume.continue same Monitor Input/Output, daily weights and renal function with basic metabolic panel cardiology, ID surgery following supplement lytes as needed Dose meds/antibiotics for reduced GFR. Avoid fleets enema/magnesium based laxatives. Avoid nephrotoxins/NSAIDs/ iodinated contrast (unless needed emergently) Glycemic control Further work up/management as per primary team Thanks for allowing me to participate in care of your patient. Will follow patient with you. Please call if any Qs. had d/w team and daughter Dr Ruiz Choi Office: [phone] Chief Complaint; cholecytitis Reason for consult: Acute Kidney Injury HPI: Pt is a 67 F with hx of diabetes Mellitus ( years), hypertension (years) CVA presented with complaints of abdomen pain and found to have Acute cholecysitis. also with severe pHTN with severe TR. Denies OTC/herbal meds or NSAIDs No recent iodinated contrast exposure. No obvious episodes of low BP but noted fluctuations. episode of bp in 200+ noted pt not aware about kidney disease in past. baseline cr 1.0-1.4 likely reporesent underlying CKD 3 ROS: Cardiovascular: No chest pain. Pulmonary: denies shortness of breath Gastrointestinal: denies abdominal pain c/o nausea. c/o vomiting. Genitourinary: No pain while urinating. Denies blood in urine. All other negative except as mentioned in HPI Physical Examination: pt with nausea/vomiting today General Appearance: Comfortable, in no acute respiratory distress, co-operative . on o2 via NC Vitals reviewed and noted as below Head; Atraumatic, normocephalic ENT: no ulcers no thrush. Tongue is midline. Oropharynx: no rash or ulcers. EYES: Rt eye unable to see. Eye muscles and extraocular movement intact. Sclera is anicteric. Neck; supple no lymphadenopathy, no thyromegaly or bruit Lungs: Normal respiratory rate/effort. Breath sounds b/l clear Heart: Normal rate. s1s2 normal. No rub or gallop. Extremities: no edema. No varicose veins Neurological: Patient is alert, awake and oriented. speech impaired due to stroke hx Skin: Warm and dry. Normal turgor. No rash. Palpitation: Normal elasticity for age Abdomen: Abdomen is soft/distended. Bowel sounds +. There is no abdominal tenderness, no guarding/rigidity no organomegaly Psych: lack insight and has normal affect/mood MSK: no joint tenderness or swelling. Digits and nails normal, no deformity : kidney or bladder not palpable Labs/imaging reviewed. Past medical history, past surgical history, family history, social history, allergy reviewed and noted as below Family hx: no hx of CKD. Rest non-contributory UA 2+ protein and 1+ blood renal imaging okay on sono but MRCP reported renal atrophy Objective - Vital Signs/Intake and Output Vital Signs (last 24 hours): Temp Pulse Resp BP Pulse Ox 97.8 F 62 20 153/73 H 98 06/16/18 08:29 06/16/18 08:29 06/16/18 08:29 06/16/18 08:29 06/16/18 08:29 Intake and Output: 06/16/18 06/16/18 06:59 18:59 Intake Total 770 Output Total 20 Balance 750 - Medications Medications: Current Medications Amlodipine Besylate (Norvasc) 10 mg PO DAILY [facility] Last Admin: 06/16/18 10:20 Dose: 10 mg Carvedilol (Coreg) 6.25 mg PO BID [facility] Last Admin: 06/16/18 10:20 Dose: 6.25 mg Ferrous Gluconate (Fergon) 324 mg PO TID [facility] Last Admin: 06/16/18 10:20 Dose: 324 mg Metronidazole (Flagyl) 500 mg in 100 mls @ 100 mls/hr IVPB Q8H [facility]; Protocol Last Admin: 06/16/18 05:54 Dose: 100 mls/hr Linezolid (Zyvox 600mg/300ml D5w) 600 mg in 300 mls @ 200 mls/hr IVPB Q12H [facility]; Protocol Last Admin: 06/16/18 04:27 Dose: 200 mls/hr Insulin Human Regular (Novolin R) 0 unit SC ACHS [facility]; Protocol Last Admin: 06/16/18 11:35 Dose: Not Given Losartan Potassium (Cozaar) 25 mg PO DAILY [facility] Last Admin: 06/16/18 10:20 Dose: 25 mg Ondansetron HCl (Zofran Inj) 4 mg IVP Q6 PRN PRN Reason: Nausea/Vomiting Last Admin: 06/16/18 11:04 Dose: 4 mg Saccharomyces Boulardii (Florastor) 250 mg PO BID [facility] Last Admin: 06/16/18 11:42 Dose: 250 mg Vancomycin HCl (Vancocin 250mg Capsule) 250 mg PO QID [facility] Last Admin: 06/16/18 11:42 Dose: 250 mg Vitamin B Complex/Vit C/Folic Acid (Nephro-Thaddeus) 1 tab PO 0800 [facility] Last Admin: 06/16/18 08:30 Dose: 1 tab - Labs Labs: 06/16/18 06:40 06/16/18 06:40 PT 13.1 SECONDS (9.7-12.2) H 06/04/18 06:44 INR 1.2 06/04/18 06:44 APTT 33 SECONDS (21-34) 06/04/18 06:44
--- NOTE | 2018-06-16 17:34 | CP.PCM.PN ---
Subjective - Date & Time of Evaluation Date of Evaluation: 06/16/18 Time of Evaluation: 17:34 Objective - Vital Signs/Intake and Output Vital Signs (last 24 hours): Temp Pulse Resp BP Pulse Ox 97.9 F 47 L 20 122/65 95 06/16/18 16:02 06/16/18 16:02 06/16/18 16:02 06/16/18 16:02 06/16/18 16:02 Intake and Output: 06/16/18 06/16/18 06:59 18:59 Intake Total 770 450 Output Total 20 25 Balance 750 425 - Medications Medications: Current Medications Amlodipine Besylate (Norvasc) 10 mg PO DAILY [facility] Last Admin: 06/16/18 10:20 Dose: 10 mg Carvedilol (Coreg) 6.25 mg PO BID [facility] Last Admin: 06/16/18 10:20 Dose: 6.25 mg Ferrous Gluconate (Fergon) 324 mg PO TID [facility] Last Admin: 06/16/18 13:21 Dose: 324 mg Metronidazole (Flagyl) 500 mg in 100 mls @ 100 mls/hr IVPB Q8H [facility]; Protocol Last Admin: 06/16/18 13:22 Dose: 100 mls/hr Linezolid (Zyvox 600mg/300ml D5w) 600 mg in 300 mls @ 200 mls/hr IVPB Q12H [facility]; Protocol Last Admin: 06/16/18 04:27 Dose: 200 mls/hr Insulin Human Regular (Novolin R) 0 unit SC ACHS [facility]; Protocol Last Admin: 06/16/18 11:35 Dose: Not Given Losartan Potassium (Cozaar) 25 mg PO DAILY [facility] Last Admin: 06/16/18 10:20 Dose: 25 mg Ondansetron HCl (Zofran Inj) 4 mg IVP Q6 PRN PRN Reason: Nausea/Vomiting Last Admin: 06/16/18 11:04 Dose: 4 mg Saccharomyces Boulardii (Florastor) 250 mg PO BID [facility] Last Admin: 06/16/18 11:42 Dose: 250 mg Vancomycin HCl (Vancocin 250mg Capsule) 250 mg PO QID [facility] Last Admin: 06/16/18 13:21 Dose: 250 mg Vitamin B Complex/Vit C/Folic Acid (Nephro-Thaddeus) 1 tab PO 0800 [facility] Last Admin: 06/16/18 08:30 Dose: 1 tab - Labs Labs: 06/16/18 06:40 06/16/18 06:40 PT 13.1 SECONDS (9.7-12.2) H 06/04/18 06:44 INR 1.2 06/04/18 06:44 APTT 33 SECONDS (21-34) 06/04/18 06:44
[2018-06-17 07:16] LABS: BASO # 0.2 K/uL (0.0-0.2); BASO % 1.2 % (0.0-2.0); EOS # 0.5 K/uL (0.0-0.7); EOS % 4.3 % (0.0-4.0); HEMOGLOBIN 10.2 g/dL (11.0-16.0); LYMPH # 1.7 K/uL (1.0-4.3); LYMPH % 13.4 % (20.0-40.0); MEAN CELL VOLUME 79.4 fL (81.0-99.0); MEAN CORPUSCULAR HEMOGLOBIN 25.7 pg (27.0-31.0); MEAN CORPUSCULAR HGB CONC 32.4 g/dL (33.0-37.0); MEAN PLATELET VOLUME 8.6 fL (7.2-11.7); MONO # 0.7 K/uL (0.0-0.8); MONO % 5.9 % (0.0-10.0); NEUT # 9.4 K/uL (1.8-7.0); NEUT % 75.2 % (50.0-75.0); RBC 3.98 Mil/uL (3.80-5.20); RED CELL DISTRIBUTION WIDTH 16.4 % (11.5-14.5); WHITE BLOOD COUNT 12.5 K/uL (4.8-10.8)
[2018-06-17] MEDS: (Novolin R) Insulin Human Regular 100 units/ml vial SC SCH ×4 (07:47→21:36)
[2018-06-17] MEDS: Multivitamin Vitamin B Complex (Nephro-Vite) Tab PO SCH (08:19)
[2018-06-17] MEDS: Saccharomyces Boulardi 250 mg Cap PO SCH ×2 (10:38→18:16)
[2018-06-17] MEDS: VANCOMYCIN HCL 250 MG/5 ML PEG SCH ×4 (11:33→21:58)
--- NOTE | 2018-06-17 16:28 | CP.PCM.PN ---
Subjective - Date & Time of Evaluation Date of Evaluation: 06/17/18 Time of Evaluation: 16:28 - Subjective Subjective: Nephrology Consultation Note: Assessment: stable acute cholecystitis Acute Kidney Injury (N17.9) likely hemodynamic due to sepsis/ATN, BP fluctuations, limited oral intake: IMPROVED Diabetic chronic Kidney Disease (E11.22) Hypertensive Chronic Kidney Disease (I12.9) with HTN urgency Chronic Kidney Disease (N18.3) Stage 3 with ? mg proteinuria (R80.9) likely due to DM/HTN Anemia (D64.9), severe pHTN with severe TR. Plan No acute need for renal replacement therapy at this time. anticipate spontaneous and gradual renal recovery pt had cholecystotomy tube placement by IR 06/04/18. gall bladder surgery was deferred but can proceed from renal perspective, when planned [BP controlled, renal fxn stable] pulmonary following. respi status improved. Hypertension control with meds as ordered. Maintain hemodynamics stable. Avoid hypotension. held ACEI/ARB due to recent DORIS, will resume.continue same Monitor Input/Output, daily weights and renal function with basic metabolic panel cardiology, ID surgery following supplement lytes as needed Dose meds/antibiotics for reduced GFR. Avoid fleets enema/magnesium based laxatives. Avoid nephrotoxins/NSAIDs/ iodinated contrast (unless needed emergently) Glycemic control Further work up/management as per primary team Thanks for allowing me to participate in care of your patient. Will follow patient with you. Please call if any Qs. had d/w team and daughter Dr Ruiz Choi Office: [phone] Chief Complaint; cholecytitis Reason for consult: Acute Kidney Injury HPI: Pt is a 67 F with hx of diabetes Mellitus ( years), hypertension (years) CVA presented with complaints of abdomen pain and found to have Acute cholecysitis. also with severe pHTN with severe TR. Denies OTC/herbal meds or NSAIDs No recent iodinated contrast exposure. No obvious episodes of low BP but noted fluctuations. episode of bp in 200+ noted pt not aware about kidney disease in past. baseline cr 1.0-1.4 likely reporesent underlying CKD 3 ROS: Cardiovascular: No chest pain. Pulmonary: denies shortness of breath Gastrointestinal: denies abdominal pain No nausea. No vomiting. Genitourinary: No pain while urinating. Denies blood in urine. All other negative except as mentioned in HPI Physical Examination: General Appearance: Comfortable, in no acute respiratory distress, co-operative . better appearing. on o2 via NC Vitals reviewed and noted as below Head; Atraumatic, normocephalic ENT: no ulcers no thrush. Tongue is midline. Oropharynx: no rash or ulcers. EYES: Rt eye unable to see. Eye muscles and extraocular movement intact. Sclera is anicteric. Neck; supple no lymphadenopathy, no thyromegaly or bruit Lungs: Normal respiratory rate/effort. Breath sounds b/l clear Heart: Normal rate. s1s2 normal. No rub or gallop. Extremities: no edema. No varicose veins Neurological: Patient is alert, awake and oriented. speech impaired due to strok e hx Skin: Warm and dry. Normal turgor. No rash. Palpitation: Normal elasticity for age Abdomen: Abdomen is soft/distended. Bowel sounds +. There is no abdominal tenderness, no guarding/rigidity no organomegaly Psych: lack insight and has normal affect/mood MSK: no joint tenderness or swelling. Digits and nails normal, no deformity : kidney or bladder not palpable Labs/imaging reviewed. Past medical history, past surgical history, family history, social history, allergy reviewed and noted as below Family hx: no hx of CKD. Rest non-contributory UA 2+ protein and 1+ blood renal imaging okay on sono but MRCP reported renal atrophy Objective - Vital Signs/Intake and Output Vital Signs (last 24 hours): Temp Pulse Resp BP Pulse Ox 98.1 F 60 20 140/61 96 06/17/18 15:56 06/17/18 15:56 06/17/18 15:56 06/17/18 15:56 06/17/18 15:56 Intake and Output: 06/17/18 06/17/18 06:59 18:59 Intake Total 460 Output Total 15 50 Balance 445 -50 - Medications Medications: Current Medications Amlodipine Besylate (Norvasc) 10 mg PO DAILY [facility] Last Admin: 06/17/18 10:38 Dose: 10 mg Carvedilol (Coreg) 6.25 mg PO BID [facility] Last Admin: 06/17/18 10:39 Dose: 6.25 mg Ferrous Gluconate (Fergon) 324 mg PO TID [facility] Last Admin: 06/17/18 13:43 Dose: 324 mg Insulin Human Regular (Novolin R) 0 unit SC ACHS [facility]; Protocol Last Admin: 06/17/18 12:23 Dose: 4 units Losartan Potassium (Cozaar) 25 mg PO DAILY [facility] Last Admin: 06/17/18 10:38 Dose: 25 mg Ondansetron HCl (Zofran Inj) 4 mg IVP Q6 PRN PRN Reason: Nausea/Vomiting Last Admin: 06/16/18 11:04 Dose: 4 mg Saccharomyces Boulardii (Florastor) 250 mg PO BID [facility] Last Admin: 06/17/18 10:38 Dose: 250 mg Vancomycin HCl (Firvanq (Oral Solution)) 250 mg PEG QID [facility] Last Admin: 06/17/18 13:43 Dose: 250 mg Vitamin B Complex/Vit C/Folic Acid (Nephro-Thaddeus) 1 tab PO 0800 [facility] Last Admin: 06/17/18 08:19 Dose: 1 tab - Labs Labs: 06/17/18 07:07 06/16/18 06:40 PT 13.1 SECONDS (9.7-12.2) H 06/04/18 06:44 INR 1.2 06/04/18 06:44 APTT 33 SECONDS (21-34) 06/04/18 06:44
--- NOTE | 2018-06-17 23:30 | CP.PCM.PN ---
Subjective - Date & Time of Evaluation Date of Evaluation: 06/17/18 Time of Evaluation: 21:05 - Subjective Subjective: patient seen today no nausea no vomiting no fever no diarrhea no dizziness no shortness of breath Objective - Vital Signs/Intake and Output Vital Signs (last 24 hours): Temp Pulse Resp BP Pulse Ox 98.1 F 60 20 140/61 96 06/17/18 15:56 06/17/18 15:56 06/17/18 15:56 06/17/18 15:56 06/17/18 15:56 Intake and Output: 06/17/18 06/18/18 18:59 06:59 Intake Total 120 Output Total 50 10 Balance -50 110 - Medications Medications: Current Medications Amlodipine Besylate (Norvasc) 10 mg PO DAILY [facility] Last Admin: 06/17/18 10:38 Dose: 10 mg Ferrous Gluconate (Fergon) 324 mg PO TID [facility] Last Admin: 06/17/18 18:16 Dose: 324 mg Insulin Human Regular (Novolin R) 0 unit SC [facility]; Protocol Last Admin: 06/17/18 21:36 Dose: Not Given Losartan Potassium (Cozaar) 25 mg PO DAILY [facility] Last Admin: 06/17/18 10:38 Dose: 25 mg Ondansetron HCl (Zofran Inj) 4 mg IVP Q6 PRN PRN Reason: Nausea/Vomiting Last Admin: 06/16/18 11:04 Dose: 4 mg Saccharomyces Boulardii (Florastor) 250 mg PO BID [facility] Last Admin: 06/17/18 18:16 Dose: 250 mg Vancomycin HCl (Firvanq (Oral Solution)) 250 mg PEG QID [facility] Last Admin: 06/17/18 21:58 Dose: 250 mg Vitamin B Complex/Vit C/Folic Acid (Nephro-Tran) 1 tab PO 0800 [facility] Last Admin: 06/17/18 08:19 Dose: 1 tab - Labs Labs: 06/17/18 07:07 06/16/18 06:40 PT 13.1 SECONDS (9.7-12.2) H 06/04/18 06:44 INR 1.2 06/04/18 06:44 APTT 33 SECONDS (21-34) 06/04/18 06:44 - Constitutional Appears: Well - Head Exam Head Exam: ATRAUMATIC, NORMAL INSPECTION, NORMOCEPHALIC - Eye Exam Eye Exam: EOMI, Normal appearance, PERRL Pupil Exam: NORMAL ACCOMODATION, PERRL - ENT Exam ENT Exam: Mucous Membranes Moist, Normal Exam - Neck Exam Neck Exam: Full ROM, Normal Inspection. absent: Lymphadenopathy - Respiratory Exam Respiratory Exam: Decreased Breath Sounds - Cardiovascular Exam Cardiovascular Exam: REGULAR RHYTHM, +S1, +S2 - GI/Abdominal Exam GI & Abdominal Exam: Soft, Diminished Bowel Sounds - Rectal Exam Rectal Exam: Deferred - Neurological Exam Neurological Exam: Oriented x3 Assessment and Plan (1) Abdominal pain Status: Acute (2) Cholecystitis Status: Acute (3) Nausea Status: Acute (4) CVA, old, dysarthria Status: Acute (5) Contusion Status: Acute (6) Hyperglycemia Status: Acute (7) Ischemic stroke Status: Acute (8) Slurring of speech Status: Acute (9) Toothache Status: Acute (10) UTI (urinary tract infection) Status: Acute (11) Diabetes mellitus Status: Chronic (12) Hyperlipidemia Status: Chronic (13) Hypertension Status: Chronic - Assessment and Plan (Free Text) Plan: medications reviewed labs reviewed vitals reviewed coreg davon casarez oral sln florastor nephro-tran normeraryc mykel Sarabia Moderate complexity of the care Plan discussed with the family and patient
[2018-06-18] MEDS: (Novolin R) Insulin Human Regular 100 units/ml vial SC SCH ×4 (08:30→22:16)
[2018-06-18] MEDS: Multivitamin Vitamin B Complex (Nephro-Vite) Tab PO SCH (09:00)
[2018-06-18] MEDS: VANCOMYCIN HCL 250 MG/5 ML PEG SCH ×4 (10:08→22:16)
[2018-06-18] MEDS: Saccharomyces Boulardi 250 mg Cap PO SCH ×2 (10:08→17:26)
--- NOTE | 2018-06-18 13:03 | CP.PCM.PN ---
Subjective - Date & Time of Evaluation Date of Evaluation: 06/18/18 - Subjective Subjective: patient examined today no nausea no vomiting no diarrhea no fever no dizziness no shortness of breath Objective - Vital Signs/Intake and Output Vital Signs (last 24 hours): Temp Pulse Resp BP Pulse Ox 97.6 F 67 20 158/78 H 96 06/18/18 07:24 06/18/18 07:24 06/18/18 07:24 06/18/18 07:24 06/18/18 07:24 Intake and Output: 06/18/18 06/18/18 06:59 18:59 Intake Total 120 Output Total 35 Balance 85 - Medications Medications: Current Medications Amlodipine Besylate (Norvasc) 10 mg PO DAILY [facility] Last Admin: 06/18/18 11:34 Dose: Not Given Carvedilol (Coreg) 6.25 mg PO BID [facility] Last Admin: 06/18/18 12:11 Dose: 6.25 mg Ferrous Gluconate (Fergon) 324 mg PO TID [facility] Last Admin: 06/18/18 10:08 Dose: 324 mg Insulin Human Regular (Novolin R) 0 unit SC [facility]; Protocol Last Admin: 06/18/18 12:11 Dose: 2 units Losartan Potassium (Cozaar) 25 mg PO DAILY [facility] Last Admin: 06/18/18 10:08 Dose: 25 mg Ondansetron HCl (Zofran Inj) 4 mg IVP Q6 PRN PRN Reason: Nausea/Vomiting Last Admin: 06/16/18 11:04 Dose: 4 mg Saccharomyces Boulardii (Florastor) 250 mg PO BID [facility] Last Admin: 06/18/18 10:08 Dose: 250 mg Vancomycin HCl (Firvanq (Oral Solution)) 250 mg PEG QID [facility] Last Admin: 06/18/18 10:08 Dose: 250 mg Vitamin B Complex/Vit C/Folic Acid (Nephro-Tran) 1 tab PO 0800 [facility] Last Admin: 06/18/18 09:00 Dose: 1 tab - Labs Labs: 06/17/18 07:07 06/16/18 06:40 PT 13.1 SECONDS (9.7-12.2) H 06/04/18 06:44 INR 1.2 06/04/18 06:44 APTT 33 SECONDS (21-34) 06/04/18 06:44 - Constitutional Appears: Well - Head Exam Head Exam: ATRAUMATIC, NORMAL INSPECTION, NORMOCEPHALIC - Eye Exam Eye Exam: EOMI, Normal appearance, PERRL Pupil Exam: NORMAL ACCOMODATION, PERRL - ENT Exam ENT Exam: Mucous Membranes Moist, Normal Exam - Neck Exam Neck Exam: Full ROM, Normal Inspection. absent: Lymphadenopathy - Respiratory Exam Respiratory Exam: Decreased Breath Sounds - Cardiovascular Exam Cardiovascular Exam: REGULAR RHYTHM, +S1, +S2 - GI/Abdominal Exam GI & Abdominal Exam: Soft, Diminished Bowel Sounds - Rectal Exam Rectal Exam: Deferred - Neurological Exam Neurological Exam: Oriented x3 Assessment and Plan (1) Abdominal pain Status: Acute (2) Cholecystitis Status: Acute (3) Nausea Status: Acute (4) CVA, old, dysarthria Status: Acute (5) Contusion Status: Acute (6) Hyperglycemia Status: Acute (7) Ischemic stroke Status: Acute (8) Slurring of speech Status: Acute (9) Toothache Status: Acute (10) UTI (urinary tract infection) Status: Acute (11) Diabetes mellitus Status: Chronic (12) Hyperlipidemia Status: Chronic (13) Hypertension Status: Chronic - Assessment and Plan (Free Text) Plan: medications reviewed labs reviewed vitals reviewed celso casarez oral sln florastor nephro-tran karen Sarabia
--- NOTE | 2018-06-18 14:16 | CP.PCM.PN ---
Subjective - Date & Time of Evaluation Date of Evaluation: 06/18/18 Time of Evaluation: 14:15 - Subjective Subjective: Nephrology Consultation Note: Assessment: stable acute cholecystitis Acute Kidney Injury (N17.9) likely hemodynamic due to sepsis/ATN, BP fluctuations, limited oral intake: IMPROVED Diabetic chronic Kidney Disease (E11.22) Hypertensive Chronic Kidney Disease (I12.9) with HTN urgency Chronic Kidney Disease (N18.3) Stage 3 with ? mg proteinuria (R80.9) likely due to DM/HTN Anemia (D64.9), severe pHTN with severe TR. Plan No acute need for renal replacement therapy at this time. anticipate spontaneous and gradual renal recovery pt had cholecystotomy tube placement by IR 06/04/18. gall bladder surgery was deferred but can proceed from renal perspective, when planned [BP controlled, renal fxn stable] pulmonary following. respi status improved. Hypertension control with meds as ordered. Maintain hemodynamics stable. Avoid hypotension. held ACEI/ARB due to recent DORIS, will resume.continue same norvasc, coreg resumed Monitor Input/Output, daily weights and renal function with basic metabolic panel cardiology, ID surgery following supplement lytes as needed Dose meds/antibiotics for reduced GFR. Avoid fleets enema/magnesium based laxatives. Avoid nephrotoxins/NSAIDs/ iodinated contrast (unless needed emergently) Glycemic control Further work up/management as per primary team Thanks for allowing me to participate in care of your patient. Will follow patient with you. Please call if any Qs. had d/w team and daughter Dr Ruiz Choi Office: [phone] Chief Complaint; cholecystitis Reason for consult: Acute Kidney Injury HPI: Pt is a 67 F with hx of diabetes Mellitus ( years), hypertension (years) CVA presented with complaints of abdomen pain and found to have Acute cholec ysitis. also with severe pHTN with severe TR. Denies OTC/herbal meds or NSAIDs No recent iodinated contrast exposure. No obvious episodes of low BP but noted fluctuations. episode of bp in 200+ noted pt not aware about kidney disease in past. baseline cr 1.0-1.4 likely reporesent underlying CKD 3 ROS: Cardiovascular: No chest pain. Pulmonary: denies shortness of breath Gastrointestinal: denies abdominal pain No nausea. No vomiting. Genitourinary: No pain while urinating. Denies blood in urine. All other negative except as mentioned in HPI Physical Examination: General Appearance: Comfortable, in no acute respiratory distress, co-operative . better appearing. on o2 via NC Vitals reviewed and noted as below Head; Atraumatic, normocephalic ENT: no ulcers no thrush. Tongue is midline. Oropharynx: no rash or ulcers. EYES: Rt eye unable to see. Eye muscles and extraocular movement intact. Sclera is anicteric. Neck; supple no lymphadenopathy, no thyromegaly or bruit Lungs: Normal respiratory rate/effort. Breath sounds b/l clear Heart: Normal rate. s1s2 normal. No rub or gallop. Extremities: no edema. No varicose veins Neurological: Patient is alert, awake and oriented. speech impaired due to stroke hx Skin: Warm and dry. Normal turgor. No rash. Palpitation: Normal elasticity for age Abdomen: Abdomen is soft/distended. Bowel sounds +. There is no abdominal tenderness, no guarding/rigidity no organomegaly Psych: lack insight and has normal affect/mood MSK: no joint tenderness or swelling. Digits and nails normal, no deformity : kidney or bladder not palpable Labs/imaging reviewed. Past medical history, past surgical history, family history, social history, allergy reviewed and noted as below Family hx: no hx of CKD. Rest non-contributory UA 2+ protein and 1+ blood renal imaging okay on sono but MRCP reported renal atrophy Objective - Vital Signs/Intake and Output Vital Signs (last 24 hours): Temp Pulse Resp BP Pulse Ox 97.6 F 67 20 158/78 H 96 06/18/18 07:24 06/18/18 07:24 06/18/18 07:24 06/18/18 07:24 06/18/18 07:24 Intake and Output: 06/18/18 06/18/18 06:59 18:59 Intake Total 120 Output Total 35 Balance 85 - Medications Medications: Current Medications Amlodipine Besylate (Norvasc) 10 mg PO DAILY [facility] Last Admin: 06/18/18 11:34 Dose: Not Given Carvedilol (Coreg) 6.25 mg PO BID [facility] Last Admin: 06/18/18 12:11 Dose: 6.25 mg Ferrous Gluconate (Fergon) 324 mg PO TID [facility] Last Admin: 06/18/18 10:08 Dose: 324 mg Insulin Human Regular (Novolin R) 0 unit SC ACHS [facility]; Protocol Last Admin: 06/18/18 12:11 Dose: 2 units Losartan Potassium (Cozaar) 25 mg PO DAILY [facility] Last Admin: 06/18/18 10:08 Dose: 25 mg Ondansetron HCl (Zofran Inj) 4 mg IVP Q6 PRN PRN Reason: Nausea/Vomiting Last Admin: 06/16/18 11:04 Dose: 4 mg Saccharomyces Boulardii (Florastor) 250 mg PO BID [facility] Last Admin: 06/18/18 10:08 Dose: 250 mg Vancomycin HCl (Firvanq (Oral Solution)) 250 mg PEG QID [facility] Last Admin: 06/18/18 10:08 Dose: 250 mg Vitamin B Complex/Vit C/Folic Acid (Nephro-Thaddeus) 1 tab PO 0800 [facility] Last Admin: 06/18/18 09:00 Dose: 1 tab - Labs Labs: 06/17/18 07:07 06/16/18 06:40 PT 13.1 SECONDS (9.7-12.2) H 06/04/18 06:44 INR 1.2 06/04/18 06:44 APTT 33 SECONDS (21-34) 06/04/18 06:44
--- NOTE | 2018-06-18 18:13 | CP.PCM.PN ---
Subjective - Date & Time of Evaluation Date of Evaluation: 06/18/18 Time of Evaluation: 11:00 - Subjective Subjective: alert, awake, follows commands, NAD. Objective - Vital Signs/Intake and Output Vital Signs (last 24 hours): Temp Pulse Resp BP Pulse Ox 98.7 F 55 L 20 117/64 96 06/18/18 15:00 06/18/18 15:00 06/18/18 15:00 06/18/18 15:00 06/18/18 15:00 Intake and Output: 06/18/18 06/18/18 06:59 18:59 Intake Total 120 450 Output Total 35 20 Balance 85 430 - Medications Medications: Current Medications Amlodipine Besylate (Norvasc) 10 mg PO DAILY [facility] Last Admin: 06/18/18 11:34 Dose: Not Given Carvedilol (Coreg) 6.25 mg PO BID [facility] Last Admin: 06/18/18 12:11 Dose: 6.25 mg Ferrous Gluconate (Fergon) 324 mg PO TID [facility] Last Admin: 06/18/18 17:24 Dose: 324 mg Insulin Human Regular (Novolin R) 0 unit SC [facility]; Protocol Last Admin: 06/18/18 16:30 Dose: 2 units Losartan Potassium (Cozaar) 25 mg PO DAILY [facility] Last Admin: 06/18/18 10:08 Dose: 25 mg Ondansetron HCl (Zofran Inj) 4 mg IVP Q6 PRN PRN Reason: Nausea/Vomiting Last Admin: 06/16/18 11:04 Dose: 4 mg Saccharomyces Boulardii (Florastor) 250 mg PO BID [facility] Last Admin: 06/18/18 17:26 Dose: 250 mg Vancomycin HCl (Firvanq (Oral Solution)) 250 mg PEG QID [facility] Last Admin: 06/18/18 17:28 Dose: 250 mg Vitamin B Complex/Vit C/Folic Acid (Nephro-Thaddeus) 1 tab PO 0800 [facility] Last Admin: 06/18/18 09:00 Dose: 1 tab - Labs Labs: 06/17/18 07:07 06/16/18 06:40 PT 13.1 SECONDS (9.7-12.2) H 06/04/18 06:44 INR 1.2 06/04/18 06:44 APTT 33 SECONDS (21-34) 06/04/18 06:44 Assessment and Plan - Assessment and Plan (Free Text) Assessment: 67 year old female admitted with abdominal pain, s/p cholecystostomt tube placement by IR, seen and examined. Awake, alert, follows commands. Discussed with DR Deepak oPst, plan to discharge home today. HOME OXYGEN IS ARRANGED TO USE AT HOME HOME CARE/VNS/HOME PT VANCOMYCIN 250 PO QID X [address] WRAY TO CONTINUE. F/U WITH PMD IN 1 WEEK follow up with surgery in 1 week
[2018-06-18 23:59] VITALS: O2SAT 98
[2018-06-19 07:58] VITALS: BP 158/67; PULSE 71; TEMP 98.5
[2018-06-19] MEDS: (Novolin R) Insulin Human Regular 100 units/ml vial SC SCH ×2 (08:02→11:44)
[2018-06-19] MEDS: Multivitamin Vitamin B Complex (Nephro-Vite) Tab PO SCH (08:34)
[2018-06-19] MEDS: Saccharomyces Boulardi 250 mg Cap PO SCH (10:22)
[2018-06-19] MEDS: Vancomycin Hydrochloride 250 mg Capsule (Oral) PO SCH ×2 (11:00→14:12)
--- NOTE | 2018-06-19 12:36 | CP.PCM.DIS ---
Provider - Provider Date of Admission: 05/30/18 15:57 Attending physician: Gabriela Post MD Consults: 05/30/18 15:47 General Surgery Consult Stat Comment: Consulting Provider: Anatoly Dorsey Consulting Physician: Anatoly Dorsey Reason for Consult: acute kleber 05/30/18 17:19 Infectious Disease Consult Routine Comment: Consulting Provider: Ramon Alanis Consulting Physician: Ramon Alanis Reason for Consult: wbc 30, cholecystitis, possible cholangitis 06/02/18 12:09 Physician Consult Routine Comment: Consulting Provider: Orlando Mendieta Consulting Physician: Orlando Mendieta Reason for Consult: pre-op clearence 06/03/18 15:28 Nephrology Consult Routine Comment: Consulting Provider: Ruiz Choi Consulting Physician: Ruiz Choi Reason for Consult: DORIS 06/05/18 13:37 Pulmonology Consult Routine Comment: Consulting Provider: Carlos Duenas Consulting Physician: Carlos Duenas Reason for Consult: right pleural effusion Time Spent in preparation of Discharge (in minutes): 30 Diagnosis - Discharge Diagnosis (1) Abdominal pain Status: Acute (2) Cholecystitis Status: Acute (3) Nausea Status: Acute (4) CVA, old, dysarthria Status: Acute (5) Contusion Status: Acute (6) Hyperglycemia Status: Acute (7) Ischemic stroke Status: Acute Priority: High (8) Slurring of speech Status: Acute (9) Toothache Status: Acute (10) UTI (urinary tract infection) Status: Acute (11) Diabetes mellitus Status: Chronic Priority: Medium (12) Hyperlipidemia Status: Chronic Priority: High (13) Hypertension Status: Chronic Priority: Medium Hospital Course - Lab Results Lab Results: Micro Results 06/12/18 13:47 Blood-Venous Blood Culture - Final NO GROWTH AFTER 5 DAYS 06/12/18 13:47 Blood-Venous Gram Stain - Final TEST NOT PERFORMED 06/12/18 13:47 Blood-Venous Blood Culture - Final NO GROWTH AFTER 5 DAYS 06/12/18 13:47 Blood-Venous Gram Stain - Final TEST NOT PERFORMED 06/10/18 19:56 Urine,Catheterized Urine Culture - Final Enterococcus Faecium 06/04/18 14:13 Body Fluid - Abdominal Gram Stain - Final 06/04/18 14:13 Body Fluid - Abdominal Body Fluid Culture - Final No growth. 05/30/18 12:33 Blood Blood Culture - Final NO GROWTH AFTER 5 DAYS 05/30/18 12:33 Blood Gram Stain - Final TEST NOT PERFORMED 05/30/18 11:25 Blood Blood Culture - Final NO GROWTH AFTER 5 DAYS 05/30/18 11:25 Blood Gram Stain - Final TEST NOT PERFORMED 05/30/18 12:31 Urine Random Urine Culture - Final No Growth (<1,000 CFU/ML) Most Recent Lab Values WBC 12.5 K/uL (4.8-10.8) H 06/17/18 07:07 RBC 3.98 Mil/uL (3.80-5.20) 06/17/18 07:07 Hgb 10.2 g/dL (11.0-16.0) L 06/17/18 07:07 Hct 31.7 % (34.0-47.0) L 06/17/18 07:07 MCV 79.4 fL (81.0-99.0) L 06/17/18 07:07 MCH 25.7 pg (27.0-31.0) L 06/17/18 07:07 MCHC 32.4 g/dL (33.0-37.0) L 06/17/18 07:07 RDW 16.4 % (11.5-14.5) H 06/17/18 07:07 Plt Count 600 K/uL (130-400) H 06/17/18 07:07 MPV 8.6 fL (7.2-11.7) 06/17/18 07:07 Neut % (Auto) 75.2 % (50.0-75.0) H 06/17/18 07:07 Lymph % (Auto) 13.4 % (20.0-40.0) L 06/17/18 07:07 [place] % (Auto) 5.9 % (0.0-10.0) 06/17/18 07:07 Eos % (Auto) 4.3 % (0.0-4.0) H 06/17/18 07:07 Baso % (Auto) 1.2 % (0.0-2.0) 06/17/18 07:07 Neut # (Auto) 9.4 K/uL (1.8-7.0) H 06/17/18 07:07 Lymph # (Auto) 1.7 K/uL (1.0-4.3) 06/17/18 07:07 [place] # (Auto) 0.7 K/uL (0.0-0.8) 06/17/18 07:07 Eos # (Auto) 0.5 K/uL (0.0-0.7) 06/17/18 07:07 Baso # (Auto) 0.2 K/uL (0.0-0.2) 06/17/18 07:07 Neutrophils % (Manual) 86 % (50-75) H 06/09/18 13:40 Band Neutrophils % 3 % (0-2) H 06/09/18 13:40 Lymphocytes % (Manual) 7 % (20-40) L 06/09/18 13:40 Reactive Lymphs % 1 % (0-0) H 06/03/18 06:31 Monocytes % (Manual) 3 % (0-10) 06/09/18 13:40 Eosinophils % (Manual) 1 % (0-4) 06/09/18 13:40 Basophils % (Manual) 1 % (0-2) 06/03/18 06:31 Metamyelocytes % 1 % (0-0) H 06/06/18 06:28 Platelet Estimate Increased (NORMAL) H 06/09/18 13:40 Large Platelets Present 06/03/18 06:31 Giant Platelets Present 05/31/18 08:15 Polychromasia Slight 05/31/18 08:15 Hypochromasia (manual) Slight 06/06/18 06:28 Poikilocytosis (manual Slight 06/03/18 06:31 Anisocytosis (manual) Slight 06/09/18 13:40 Tear Drop Cells Slight 06/06/18 06:28 Ovalocytes Slight 06/06/18 06:28 Acanthocytes (Spur) Slight 06/03/18 06:31 PT 13.1 SECONDS (9.7-12.2) H 06/04/18 06:44 INR 1.2 06/04/18 06:44 APTT 33 SECONDS (21-34) 06/04/18 06:44 Puncture Site Rra 06/03/18 12:48 pCO2 30 mm/Hg (35-45) L 06/03/18 12:48 pO2 154 mm/Hg (80-100) H 06/03/18 12:48 HCO3 24.3 mmol/L (21-28) 06/03/18 12:48 ABG pH 7.47 (7.35-7.45) H 06/03/18 12:48 ABG Total CO2 22.7 mmol/L (22-28) 06/03/18 12:48 ABG O2 Saturation 99.1 % (95-98) H 06/03/18 12:48 ABG Base Excess -0.9 mmol/L (-2.0-3.0) 06/03/18 12:48 ABG Hemoglobin 10.3 g/dL (11.7-17.4) L 06/01/18 17:15 ABG Carboxyhemoglobin 2.0 % (0.5-1.5) H 06/01/18 17:15 POC ABG HHb (Measured) 2.9 % (0.0-5.0) 06/01/18 17:15 ABG Methemoglobin 0.8 % (0.0-3.0) 06/01/18 17:15 Compa Test Pos 06/03/18 12:48 ABG Potassium 3.5 mmol/L (3.6-5.2) L 06/03/18 12:48 VBG pH 7.37 (7.32-7.43) 05/30/18 16:55 VBG pCO2 47 mmHg (40-60) 05/30/18 16:55 VBG HCO3 24.2 mmol/L 05/30/18 16:55 VBG Total CO2 28.6 mmol/L (22-28) H 05/30/18 16:55 VBG O2 Sat (Calc) 37.2 % (40-65) L 05/30/18 16:55 VBG Base Excess 1.3 mmol/L (0.0-2.0) 05/30/18 16:55 VBG Potassium 4.0 mmol/L (3.6-5.2) 05/30/18 16:55 A-a O2 Difference 522.0 mm/Hg 06/03/18 12:48 Respiratory Index 3.4 06/03/18 12:48 Hgb O2 Saturation 94.3 % (95.0-98.0) L 06/01/18 17:15 Sodium 146.0 mmol/l (132-148) 06/03/18 12:48 Chloride 115.0 mmol/L (98-107) H 06/03/18 12:48 Glucose 158 mg/dl (65-105) H 06/03/18 12:48 Lactate 1.0 mmol/L (0.7-2.1) 06/03/18 12:48 Liter Flow 3.0 06/01/18 17:15 FiO2 100.0 % 06/03/18 12:48 Sodium 134 mmol/L (132-148) 06/16/18 06:40 Potassium 4.4 mmol/L (3.6-5.2) 06/16/18 06:40 Chloride 102 mmol/L (98-107) 06/16/18 06:40 Carbon Dioxide 27 mmol/L (22-30) 06/16/18 06:40 Anion Gap 9 (10-20) L 06/16/18 06:40 BUN 10 mg/dL (7-17) 06/16/18 06:40 Creatinine 1.7 mg/dL (0.7-1.2) H 06/16/18 06:40 Est GFR ( Amer) 36 06/16/18 06:40 Est GFR (Non-Af Amer) 30 06/16/18 06:40 POC Glucose (mg/dL) 141 mg/dL (65-110) H 06/19/18 11:20 Random Glucose 197 mg/dL (65-105) H 06/16/18 06:40 Hemoglobin A1c 8.6 % (4.2-6.5) H D 06/03/18 06:31 Lactic Acid 0.7 mmol/L (0.7-2.1) 06/12/18 13:47 Calcium 8.1 mg/dl (8.6-10.4) L 06/16/18 06:40 Phosphorus 2.8 mg/dL (2.5-4.5) 06/16/18 06:40 Magnesium 1.7 mg/dL (1.6-2.3) 06/16/18 06:40 Total Bilirubin 0.3 mg/dL (0.2-1.3) 06/16/18 06:40 Direct Bilirubin 2.3 mg/dL (0.0-0.4) H 05/31/18 08:15 GGT 96 U/L (8-78) H 05/31/18 08:15 AST 37 U/L (14-36) H 06/16/18 06:40 ALT 18 U/L (9-52) 06/16/18 06:40 Alkaline Phosphatase 107 U/L (38-126) 06/16/18 06:40 Troponin I < 0.0120 ng/mL (0.00-0.120) 05/30/18 13:30 NT-Pro-B Natriuret Pep 2210 pg/mL (0-900) H 06/05/18 16:27 Total Protein 5.8 g/dL (6.3-8.3) L 06/16/18 06:40 Albumin 2.7 g/dL (3.5-5.0) L 06/16/18 06:40 Globulin 3.1 gm/dL (2.2-3.9) 06/16/18 06:40 Albumin/Globulin Ratio 0.9 (1.0-2.1) L 06/16/18 06:40 Lipase < 10 U/L (23-300) L 05/30/18 13:30 Procalcitonin 0.07 NG/ML (0.19-0.49) L 06/12/18 13:47 Arterial Blood Potassium 3.5 mmol/L (3.6-5.2) L 06/03/18 12:48 Venous Blood Potassium 4.0 mmol/L (3.6-5.2) 05/30/18 16:55 Urine Color Yellow (YELLOW) 06/10/18 08:09 Urine Clarity Hazy (Clear) 06/10/18 08:09 Urine pH 5.0 (5.0-8.0) 06/10/18 08:09 Ur Specific [place] 1.013 (1.003-1.030) 06/10/18 08:09 Urine Protein 1+ mg/dL (NEGATIVE) H 06/10/18 08:09 Urine Glucose (UA) Normal mg/dL (Normal) 06/10/18 08:09 Urine Ketones Negative mg/dL (NEGATIVE) 06/10/18 08:09 Urine Blood 1+ (NEGATIVE) H 06/10/18 08:09 Urine Nitrate Negative (NEGATIVE) 06/10/18 08:09 Urine Bilirubin Negative (NEGATIVE) 06/10/18 08:09 Urine Urobilinogen Normal mg/dL (0.2-1.0) 06/10/18 08:09 Ur Leukocyte Esterase 1+ Franck/uL (Negative) H 06/10/18 08:09 Urine WBC (Auto) 7 /hpf (0-5) H 06/10/18 08:09 Urine RBC (Auto) 7 /hpf (0-3) H 06/10/18 08:09 Ur Squamous Epith Cells 5 /hpf (0-5) 06/10/18 08:09 Urine Bacteria Rare (<OCC) 06/10/18 08:09 Hyaline Casts 0-2 /lpf (0-2) 05/30/18 12:15 Ur Random Sodium 64 mmol/L 06/10/18 08:09 Vancomycin Trough 28.1 ug/mL (5.0-10.0) H 06/01/18 00:13 Random Vancomycin 16.1 ug/mL 06/02/18 07:23 C. difficile Ag & Toxin Negative (NEGATIVE) 06/07/18 22:25 Hepatitis A IgM Ab Negative (NEGATIVE) 05/31/18 08:15 Hep Bs Antigen Negative (NEGATIVE) 05/31/18 08:15 Hep B Core IgM Ab Negative (NEGATIVE) 05/31/18 08:15 Hepatitis C Antibody Negative (NEGATIVE) 05/31/18 08:15 Blood Type A POSITIVE 06/03/18 06:31 Antibody Screen Negative 06/03/18 06:31 Discharge Exam - Head Exam Head Exam: ATRAUMATIC, NORMAL INSPECTION, NORMOCEPHALIC - Eye Exam Eye Exam: EOMI, Normal appearance, PERRL Pupil Exam: NORMAL ACCOMODATION, PERRL - Cardiovascular Exam Cardiovascular Exam: +S1, +S2 - GI/Abdominal Exam GI & Abdominal Exam: Normal Bowel Sounds - Rectal Exam Rectal Exam: NORMAL INSPECTION - Exam Exam: Circumcision, NORMAL INSPECTION External exam: NORMAL EXTERNAL EXAM Speculum exam: NORMAL SPECULUM EXAM Bimanual exam: NORMAL BIMANUAL EXAM - Neurological Exam Neurological exam: Alert, CN II-XII Intact, Normal Gait, Oriented x3, Reflexes Normal - Psychiatric Exam Psychiatric exam: Normal Affect, Normal Mood - Skin Skin Exam: Dry, Intact, Normal Color, Warm Discharge Plan - Discharge Medications Prescriptions: Carvedilol [Coreg] 6.25 mg PO BID #60 tab Losartan [Cozaar] 25 mg PO DAILY #30 tab Saccharomyces Boulardi [Florastor] 250 mg PO BID #20 cap amLODIPine [Norvasc] 10 mg PO DAILY #30 tab Vancomycin Hydrochloride Oral [Vancocin 250mg Capsule] 250 mg PO QID #7 capsule - Follow Up Plan Disposition: HOME/ ROUTINE Instructions: Cholecystectomy (DC), Vancomycin, Cholecystitis (DC) Additional Instructions: HOME OXYGEN IS ARRANGED TO USE AT HOME HOME CARE/VNS/HOME PT VANCOMYCIN 250 PO QID X [address] ALANIS TO CONTINUE. F/U WITH PMD IN 1 WEEK follow up with surgery in 1 week Referrals: Temo Lerner MD [Staff Provider] - Anatoly Dorsey MD [Staff Provider] -
--- NOTE | 2018-06-19 13:35 | CP.PCM.PN ---
Subjective - Date & Time of Evaluation Date of Evaluation: 06/19/18 Time of Evaluation: 13:35 - Subjective Subjective: Nephrology Consultation Note: Assessment: stable acute cholecystitis Acute Kidney Injury (N17.9) likely hemodynamic due to sepsis/ATN, BP fluctuations, limited oral intake: IMPROVED Diabetic chronic Kidney Disease (E11.22) Hypertensive Chronic Kidney Disease (I12.9) with HTN urgency Chronic Kidney Disease (N18.3) Stage 3 with ? mg proteinuria (R80.9) likely due to DM/HTN Anemia (D64.9), severe pHTN with severe TR. Plan No acute need for renal replacement therapy at this time. pt had cholecystotomy tube placement by IR 06/04/18. gall bladder surgery was deferred but can proceed from renal perspective, when planned [BP controlled, renal fxn stable] pulmonary following. respi status improved. Hypertension control with meds as ordered. Maintain hemodynamics stable. Avoid hypotension. held ACEI/ARB due to recent DORIS, will resume.continue same norvasc, coreg resumed Monitor Input/Output, daily weights and renal function with basic metabolic panel cardiology, ID surgery following supplement lytes as needed Dose meds/antibiotics for reduced GFR. Avoid fleets enema/magnesium based laxatives. Avoid nephrotoxins/NSAIDs/ iodinated contrast (unless needed emergently) Glycemic control Further work up/management as per primary team pt planned for d/c. stable from renal perspective with 1-2 week outpt follow up Thanks for allowing me to participate in care of your patient. Please call if any Qs. had d/w team and daughter Ruiz Choi Office: [phone] Chief Complaint; cholecystitis Reason for consult: Acute Kidney Injury HPI: Pt is a 67 F with hx of diabetes Mellitus ( years), hypertension (years) CVA presented with complaints of abdomen pain and found to have Acute cholecy sitis. also with severe pHTN with severe TR. Denies OTC/herbal meds or NSAIDs No recent iodinated contrast exposure. No obvious episodes of low BP but noted fluctuations. episode of bp in 200+ noted pt not aware about kidney disease in past. baseline cr 1.0-1.4 likely reporesent underlying CKD 3 ROS: Cardiovascular: No chest pain. Pulmonary: denies shortness of breath Gastrointestinal: denies abdominal pain No nausea. No vomiting. Genitourinary: No pain while urinating. Denies blood in urine. All other negative except as mentioned in HPI Physical Examination: General Appearance: Comfortable, in no acute respiratory distress, co-operative . better appearing. on o2 via NC Vitals reviewed and noted as below Head; Atraumatic, normocephalic ENT: no ulcers no thrush. Tongue is midline. Oropharynx: no rash or ulcers. EYES: Rt eye unable to see. Eye muscles and extraocular movement intact. Sclera is anicteric. Neck; supple no lymphadenopathy, no thyromegaly or bruit Lungs: Normal respiratory rate/effort. Breath sounds b/l clear Heart: Normal rate. s1s2 normal. No rub or gallop. Extremities: no edema. No varicose veins Neurological: Patient is alert, awake and oriented. speech impaired due to stroke hx Skin: Warm and dry. Normal turgor. No rash. Palpitation: Normal elasticity for age Abdomen: Abdomen is soft/distended. Bowel sounds +. There is no abdominal tenderness, no guarding/rigidity no organomegaly Psych: lack insight and has normal affect/mood MSK: no joint tenderness or swelling. Digits and nails normal, no deformity : kidney or bladder not palpable Labs/imaging reviewed. Past medical history, past surgical history, family history, social history, allergy reviewed and noted as below Family hx: no hx of CKD. Rest non-contributory UA 2+ protein and 1+ blood renal imaging okay on sono but MRCP reported renal atrophy Objective - Vital Signs/Intake and Output Vital Signs (last 24 hours): Temp Pulse Resp BP Pulse Ox 98.5 F 71 20 158/67 H 98 06/19/18 07:56 06/19/18 07:56 06/19/18 07:56 06/19/18 07:56 06/19/18 07:56 Intake and Output: 06/19/18 06/19/18 06:59 18:59 Intake Total 540 Output Total 45 Balance 495 - Medications Medications: Current Medications Amlodipine Besylate (Norvasc) 10 mg PO DAILY [facility] Last Admin: 06/19/18 10:22 Dose: 10 mg Carvedilol (Coreg) 6.25 mg PO BID [facility] Last Admin: 06/19/18 10:22 Dose: 6.25 mg Ferrous Gluconate (Fergon) 324 mg PO TID [facility] Last Admin: 06/19/18 10:22 Dose: 324 mg Insulin Human Regular (Novolin R) 0 unit SC ACHS [facility]; Protocol Last Admin: 06/19/18 11:44 Dose: Not Given Losartan Potassium (Cozaar) 25 mg PO DAILY [facility] Last Admin: 06/19/18 10:22 Dose: 25 mg Ondansetron HCl (Zofran Inj) 4 mg IVP Q6 PRN PRN Reason: Nausea/Vomiting Last Admin: 06/16/18 11:04 Dose: 4 mg Saccharomyces Boulardii (Florastor) 250 mg PO BID [facility] Last Admin: 06/19/18 10:22 Dose: 250 mg Vancomycin HCl (Vancocin 250mg Capsule) 250 mg PO QID [facility] Last Admin: 06/19/18 11:00 Dose: 250 mg Vitamin B Complex/Vit C/Folic Acid (Nephro-Thaddeus) 1 tab PO 0800 [facility] Last Admin: 06/19/18 08:34 Dose: 1 tab - Labs Labs: 06/17/18 07:07 06/16/18 06:40 PT 13.1 SECONDS (9.7-12.2) H 06/04/18 06:44 INR 1.2 06/04/18 06:44 APTT 33 SECONDS (21-34) 06/04/18 06:44
--- NOTE | 2018-06-20 18:18 | PQF ---
PROVIDER RESPONSE TEXT: Hx.of CVA with residual slurring of speech REVIEWER QUERY TEXT: Conflicting Documentation Clarification Physician?s Documentation Request This Form is Not a Permanent Document in the Medical Record Pt Name: CHRISSY ANDINO MR #: [id number] Payor: MEDICARE HMO Unit/Bed: [id number] Adm Date: 05/30/2018 3:57:00 PM Reviewer: Cornelia Orellana Ext. Query Date: 06/19/2018 2:26:38 PM Conflicting Documentation Clarification [id number] By submitting this query, we are merely seeking further clarification of documentation to accurately reflect all conditions that you are monitoring, evaluating, treating or that extend the hospitalizati on or utilize additional resources of care. Please utilize your independent clinical judgment when ad dressing the question(s) below. Dear Doctor Bernard Post, The patient?s Clinical Indicators include: History Of Present Illness : "67 y/o female, with history of diabetes, hypertension, and remote history of stroke, presents to ED with complaints of abdominal pain since yesterday, associated with nausea and vomiting x1" Pt with Dx include but not limited to the ff: - CVA, old, dysarthria Status: Acute - Ischemic stroke Status: Acute Priority: High - Slurring of speech Status: Acute Please clarify if pt. with Hx. of CVA with residual slurring of speech or an Acute Ischemic stroke d uring this admission. A single mention or documentation of multiple diagnoses for the same clinical presentation appears in the record. Please clarify the diagnosis/diagnoses. Please also document if the condition is: -- Confirmed and current -- Confirmed, treated and resolved -- Ruled out -- Other, please specify PLEASE DOCUMENT ANY ADDITIONAL DIAGNOSES AND/OR SPECIFICITY IN THE PROGRESS NOTES AND/OR DISCHARGE RENEE MMARY. Clinically unable to determine/unknown Disagree with the above request Need to discuss Query created by: Cornelia Orellana on 06/19/2018 2:26 PM Electronically signed by: Bernard Post ST 06/20/2018 6:15 PM
== END 2018-06-19 14:22 | disposition home or self-care (01) | DRG 444 ==
LOC: C.ER 11:06 → C.3T 15:57
PROVIDERS: ADMIT Internal Medicine Nephrology; ATTEND Internal Medicine Nephrology
PROC: 0F9430Z Drainage of Gallbladder with Drainage Device, Percutaneous Approach (ICD-10-PCS; principal; 2018-06-04)
DX: K80.00 Calculus of gallbladder with acute cholecystitis without obstruction (principal); A41.9 Sepsis, unspecified organism; R65.20 Severe sepsis without septic shock; N39.0 Urinary tract infection, site not specified; N17.9 Acute kidney failure, unspecified; J98.11 Atelectasis; J90 Pleural effusion, not elsewhere classified; K83.09 Other cholangitis; E11.65 Type 2 diabetes mellitus with hyperglycemia; E78.5 Hyperlipidemia, unspecified; I25.10 Atherosclerotic heart disease of native coronary artery without angina pectoris; I12.9 Hypertensive chronic kidney disease with stage 1 through stage 4 chronic kidney disease, or unspecified chronic kidney disease; I27.20 Pulmonary hypertension, unspecified; K59.00 Constipation, unspecified; Z79.4 Long term (current) use of insulin; Z97.0 Presence of artificial eye; N18.3 Chronic kidney disease, stage 3 (moderate); K86.89 Other specified diseases of pancreas; I36.1 Nonrheumatic tricuspid (valve) insufficiency; D64.9 Anemia, unspecified; K08.89 Other specified disorders of teeth and supporting structures; I69.220 Aphasia following other nontraumatic intracranial hemorrhage

== ENCOUNTER 2018-06-29 12:53 | Inpatient (IN) | payer MEDICARE, MEDICAID ==
[2018-06-29 12:53] VITALS: BMI 23.6
[2018-06-29 14:02] LABS: BASO # 0.1 K/uL (0.0-0.2); BASO % 0.5 % (0.0-2.0); EOS # 0.1 K/uL (0.0-0.7); EOS % 0.4 % (0.0-4.0); LYMPH # 1.5 K/uL (1.0-4.3); LYMPH % 10.4 % (20.0-40.0); MEAN CORPUSCULAR HGB CONC 31.8 g/dL (33.0-37.0); MEAN PLATELET VOLUME 8.6 fL (7.2-11.7); MONO # 0.9 K/uL (0.0-0.8); MONO % 6.4 % (0.0-10.0); NEUT % 82.3 % (50.0-75.0); RBC 4.88 Mil/uL (3.80-5.20); RED CELL DISTRIBUTION WIDTH 17.1 % (11.5-14.5); WHITE BLOOD COUNT 14.6 K/uL (4.8-10.8)
[2018-06-29 14:06] LABS: HEMOGLOBIN 12.7 g/dL (11.0-16.0); MEAN CELL VOLUME 81.8 fL (81.0-99.0)
--- NOTE | 2018-06-29 14:39 | C.PDOC ---
History Of Present Illness 67 year old female with PMHx of CVA, hypertension, diabetes, hyperlipidemia, UTI, DORIS, and anemia presents with nausea and vomiting over the past week.Patient also complains of diffuse weakness. Patient was recently seen at [facility] ED with acute cholecystitis. Percutaneous cholecystostomy drain placed into gallbladder by . Patient had a catheter placed on 06/04/18. Patient denies any other complaints. Patient was released 2 weeks ago and has been vomiting every meal since then. Patient denies fever, chills, night sweats, bloody/bilious vomit, bloody/ dark stools, constipation, or diarrhea. Time Seen by Provider: 06/29/18 14:35 Chief Complaint (Nursing): Abdominal Pain History Per: Patient History/Exam Limitations: no limitations Onset/Duration Of Symptoms: Days (7) Current Symptoms Are (Timing): Still Present Associated Symptoms: Nausea, Vomiting. denies: Fever, Chills, Diarrhea, Constipation, Urinary Symptoms Past Medical History Reviewed: Historical Data, Nursing Documentation, Vital Signs Vital Signs: Last Vital Signs Temp 97.4 F L 06/29/18 13:01 Pulse 79 06/29/18 13:01 Resp 18 06/29/18 13:01 BP 117/75 06/29/18 13:01 Pulse Ox 100 06/29/18 13:01 Primary Care Provider: Non [facility] Provider, - Medical History PMH: Anemia, CVA, Diabetes, HTN, Hypercholesterolemia Denies: HIV Other PMH: DORIS, UTI Surgical History: Appendectomy Other Surgeries: Percutaneous cholecystostomy drain - [facility] Procedures DRAINAGE OF GALLBLADDER WITH DRAINAGE DEVICE, PERC APPROACH (05/30/18) EXERCISE TREATMENT OF MUSCULOSK WHOLE USING ASSIST EQUIPMENT (10/14/16) HOME MANAGEMENT TREATMENT USING ASSIST EQUIPMENT (10/14/16) MOTOR SPEECH TREATMENT (10/14/16) Family History: States: Unknown Family Hx - Social History Hx Alcohol Use: No Hx Substance Use: No - Immunization History Hx Tetanus Toxoid Vaccination: Yes Hx Influenza Vaccination: No Hx Pneumococcal Vaccination: No Review Of Systems Constitutional: Negative for: Fever, Chills, Weakness Cardiovascular: Negative for: Chest Pain Respiratory: Negative for: Cough, Shortness of Breath Gastrointestinal: Positive for: Nausea, Vomiting. Negative for: Diarrhea, Constipation, Melena, Hematochezia, Hematemesis Genitourinary: Negative for: Dysuria, Frequency, Hematuria Neurological: Negative for: Weakness, Numbness Physical Exam - Physical Exam Appears: Non-toxic, No Acute Distress Skin: Warm, Dry Head: Atraumatic, Normacephalic Eye(s): bilateral: Normal Inspection, PERRL, EOMI Nose: Normal Oral Mucosa: Moist Tongue: Normal Appearing Lips: Normal Appearing Neck: Normal ROM, Trachea Midline, Supple, No Other (meningeal signs- negative kernig's and brudzinskis) Chest: Symmetrical, No Deformity, No Tenderness Cardiovascular: Rhythm Regular, No Friction Rub Respiratory: No Rales, No Rhonchi, No Wheezing Gastrointestinal/Abdominal: Soft, Tenderness (right upper quadrant), No Distention, Other (right upper quadrant percutaneous tube appears to be partially outside or abdominal cavity. No signs of localized cellulitis / crepitus) Back: Normal Inspection, No CVA Tenderness, No Vertebral Tenderness Extremity: Normal ROM, Capillary Refill (<2 seconds), No Swelling Extremity: Bilateral: Atraumatic, Normal Color And Temperature, Normal ROM Pulses: Left Dorsalis Pedis: Normal, Right Dorsalis Pedis: Normal Neurological/Psych: Oriented x3, Normal Speech, Normal Cognition ED Course And Treatment - Laboratory Results Result Diagrams: 06/30/18 11:42 06/30/18 11:42 O2 Sat by Pulse Oximetry: 100 (in RA) Pulse Ox Interpretation: Normal Medical Decision Making Medical Decision Making: Impression: 67 year old female with PMHx of CVA, hypertension, diabetes, hyperlipidemia, UTI, DORIS, and anemia presents with nausea and vomiting over the past week. ?intra-abdominal infection given intractable vomiting since being discharge 2 weeks prior as well as what appears to be partial displaement of percutneous gallbladder drain. No signs of sepsis per vitals or exam however. Initial Plan: VBG shock panel Abdomen/pelvis CT EKG BMP CMP lipase CBC blood culture UA Albuterol INH Dextrose IV Zosyn IV fluids Vancomycin Zofran EKG: NSR 76 bpm. No stemi Spoke with who accepts to service. Spoke with surgical appliances salesperson who recommends the patient be given Zosyn. MDM: tube misplacement vs worsening cholecystitis 161 seen by surgery: [facility] team: tube appears in place recc ordering gi consult, admission and CT EKG w/ out any signs of hyperk appreciate consult w/ Dr. Deepak anne: to admit to his service Abdomen/Pelvis CT: Persistent redemonstrated is in situ cholecystostomy tube. Gallbladder is physiologically distended with what appears represent some faint intraluminal calculi. Small amount of pericholecystic fluid. Diminished perihepatic ascites.. See above discussion for additional details and findings. Disposition - Disposition Disposition: HOSPITALIZED Disposition Time: 16:12 Condition: STABLE - Clinical Impression Clinical Impression: Vomiting - Scribe Statement The provider has reviewed the documentation as recorded by the Scribe (Hazel Loya) All medical record entries made by the Scribe were at my direction and personally dictated by me. I have reviewed the chart and agree that the record accurately reflects my personal performance of the history, physical exam, medical decision making, and the department course for this patient. I have also personally directed, reviewed, and agree with the discharge instructions and disposition.
[2018-06-29 14:44] LABS: CALCIUM 9.6 mg/dl (8.6-10.4)
[2018-06-29] MEDS ORDERED: Sodium Chloride 0.9% 1,000 ML IV ONE (15:05)
[2018-06-29] MEDS ORDERED: Piperacillin/Tazobact 3.375 gm 100 ML IVPB STA (15:20)
[2018-06-29] MEDS ORDERED: Dextrose 50% SYRINGE Inj (50 ml) IV STA (15:23)
[2018-06-29] MEDS ORDERED: Albuterol 0.083% Inhal Sol (2.5 mg/3 mL) UD INH STA (15:24)
[2018-06-29] MEDS ORDERED: Sodium Chloride 0.9% 1,000 ML ONE (15:26)
[2018-06-29] MEDS ORDERED: Dextrose 50% SYRINGE Inj (50 ml) ONE (15:34)
--- NOTE | 2018-06-29 16:15 | CP.PCM.CON ---
<Nabeel Campbell - Last Filed: 06/29/18 16:20> History of Present Illness - History of Present Illness History of Present Illness: Surgery Consult Note. Dr. Dorsey 67yo F w PMHx of DM, HTN, CVA here for evaluation of weakness, nausea, vomiting and poor appetite. Patient is well known to the surgery service. She was recently admitted for acute cholecystitis and obtained cholecystostomy tube and was discharged. Patient denies any abdominal pain. Family reports nausea and non-bilious emesis a few hours after any PO food intake. Patient is able to tolerate liquids. Cholecystostomy tube in place with bilious drainage noted. Denies any fevers or chills. No urinary complaints. No sick contacts. 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 NKDA Review of Systems - Review of Systems All systems: reviewed and no additional remarkable complaints except - Constitutional Constitutional: Anorexia, Lethargy, Malaise. 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) - HEENT Hx HEENT Problems: Yes Other/Comment: RT EYE PROSTHESIS - ENDOCRINE/METABOLIC Hx Diabetes Mellitus Type 2: Yes - HEMATOLOGICAL/ONCOLOGICAL Hx Anemia: Yes Hx Human Immunodeficiency Virus (HIV): No - MUSCULOSKELETAL/RHEUMATOLOGICAL Hx Falls: No - GASTROINTESTINAL Hx Constipation: Yes - PSYCHIATRIC Hx Substance Use: No - SURGICAL HISTORY Hx Appendectomy: Yes - ANESTHESIA Hx Anesthesia: Yes Hx Anesthesia Reactions: No Hx Malignant Hyperthermia: No Meds Allergies/Adverse Reactions: Allergies Allergy/AdvReac Type Severity Reaction Status Date / Time No Known Allergies Allergy Verified 05/30/18 11:27 - Medications Medications: Current Medications Sodium Chloride (Sodium Chloride 0.9%) 1,000 mls @ 250 mls/hr IV .Q4H ONE Stop: 06/29/18 19:04 Last Admin: 06/29/18 15:26 Dose: 250 mls/hr Vancomycin HCl 1 gm/ Sodium (Chloride) 250 mls @ 166.7 mls/hr IVPB Q24H STORMY; Protocol Physical Exam - Constitutional Appears: Non-toxic - Head Exam Head Exam: ATRAUMATIC, NORMAL INSPECTION, NORMOCEPHALIC - Eye Exam Eye Exam: EOMI, Normal appearance. absent: Scleral icterus - ENT Exam ENT Exam: Mucous Membranes Dry - Respiratory Exam Respiratory Exam: NORMAL BREATHING PATTERN. absent: Accessory Muscle Use, Respiratory Distress - GI/Abdominal Exam GI & Abdominal Exam: Soft. absent: Distended, Firm, Guarding, Rebound, Rigid, Tenderness Additional comments: CT tube in place with bilious output noted. - Extremities Exam Extremities exam: Positive for: normal inspection. Negative for: calf tenderness - Back Exam Back exam: NORMAL INSPECTION - Neurological Exam Neurological exam: Alert - Psychiatric Exam Psychiatric exam: Normal Affect, Normal Mood - Skin Skin Exam: Dry, Intact, Normal Color, Warm Results - Vital Signs Recent Vital Signs: Last Vital Signs Temp 97.4 F L 06/29/18 13:01 Pulse 79 06/29/18 13:01 Resp 18 06/29/18 13:01 BP 117/75 06/29/18 13:01 Pulse Ox 100 06/29/18 15:49 - Labs Result Diagrams: 06/29/18 13:57 06/29/18 13:57 Labs: Laboratory Results - last 24 hr 06/29/18 06/29/18 13:57 13:57 WBC 14.6 H RBC 4.88 Hgb 12.7 D Hct 39.9 MCV 81.8 D MCH 26.0 L MCHC 31.8 L RDW 17.1 H Plt Count 445 H D MPV 8.6 Neut % (Auto) 82.3 H Lymph % (Auto) 10.4 L Newton % (Auto) 6.4 Eos % (Auto) 0.4 Baso % (Auto) 0.5 Neut # (Auto) 12.0 H Lymph # (Auto) 1.5 Newton # (Auto) 0.9 H Eos # (Auto) 0.1 Baso # (Auto) 0.1 Sodium 146 Potassium 5.4 H Chloride 108 H Carbon Dioxide 26 Anion Gap 17 BUN 22 H Creatinine 1.8 H Est GFR ( Amer) 34 Est GFR (Non-Af Amer) 28 Random Glucose 49 L D Calcium 9.6 Assessment & Plan - Assessment and Plan (Free Text) Assessment: 67yo F with PMHx of DM, HTN, CVA with c/o and recent cholecystostomy tube placement (06/04/18) for cholecystitis. Plan: - f/u Abd US - f/u CT Abd/Pelvis - Will secure Cholecystostomy tube after imaging has been performed - CT tube draining bilious output, abdomen soft and non-tender; Low suspicion of GB source for current symptoms - GI consult appreciated Further recs as per Dr. Sunita Campbell PGY2 surgery <Anatoly Dorsey - Last Filed: 07/05/18 20:52> Results - Vital Signs Recent Vital Signs: Last Vital Signs Temp 98.3 F 07/04/18 14:38 Pulse 74 07/04/18 14:38 Resp 20 07/04/18 14:38 BP 136/64 07/04/18 14:38 Pulse Ox 97 07/04/18 14:38 - Labs Result Diagrams: 07/03/18 07:30 07/03/18 07:30 Attending/Attestation - Attestation I have personally seen and examined this patient.: Yes I have fully participated in the care of the patient.: Yes I have reviewed all pertinent clinical information: Yes Notes (Text): Pt was seen and examined at bedside Agree with above note and assessment Pt with Upper abdominal pain and N/ V Abdomen : Soft, Non tender, Non distended, C tube is functioning Labs and Radiology reviewed Ass: UTI, Cholecystostomy tube in place Plan : IV antibiotics CT scan for confirm placement of tube GI consult NPO, IVF Plan d.w pt in detail Risk and benefit explained in detail.
--- NOTE | 2018-06-29 16:52 | CT ---
Date of service: 06/29/2018 PROCEDURE: CT Abdomen and Pelvis without intravenous contrast HISTORY: Nausea vomiting previous gallbladder percutenous tube COMPARISON: Comparison made with CT scan abdomen pelvis 06/09/2018. TECHNIQUE: Contiguous helical/transaxial sections of the abdomen pelvis performed without oral or intravenous contrast material. Additional 2D sagittal and coronal reformats generated. Radiation dose: Total exam DLP = 557.42 mGy-cm. This CT exam was performed using one or more of the following dose reduction techniques: Automated exposure control, adjustment of the mA and/or kV according to patient size, and/or use of iterative reconstruction technique. FINDINGS: LOWER THORAX: Heart size is within range of normal. No significant pericardial effusion. Previously noted bilateral effusions resolved. Bibasilar atelectasis right greater than left also improved.. LIVER: The liver exhibits normal size. No evidence of nephrolithiasis or hydronephrosis. GALLBLADDER AND BILE DUCTS: Redemonstrated is an in situ percutaneous pigtail catheter (cholecystostomy tube) within the gallbladder lumen.. There appears to be pericholecystic fluid. Questionable intraluminal gallbladder calculi.. PANCREAS: The pancreas is quite atrophic without mass collection or calcification. SPLEEN: Small splenule adjacent to the inferior main body of the spleen. ADRENALS: No adrenal lesions are identified KIDNEYS AND URETERS: The kidneys demonstrate mild cortical atrophy. Vascular calcifications are felt to be present. No evidence of hydronephrosis. Small cyst posterior and lateral cortex mid-lower pole left kidney. VASCULATURE: Unremarkable. No aortic aneurysm. Mild aortic atherosclerotic calcification or mural plaque present. BOWEL: Evaluation of the bowel is limited due to the lack of oral contrast material. Visualized loops of small bowel exhibit normal contour and caliber. No evidence of acute mechanical small bowel obstruction. There is a moderate amount of semi-solid/liquid stool within the cecum and ascending as well as transverse colon and less so the throughout the descending colon. APPENDIX: The appendix is not positively identified though no inflammatory changes seen in the right lower quadrant of the abdomen. PERITONEUM: Previously noted small small to medium-sized amount of perihepatic ascites diminished. LYMPH NODES: Unremarkable. No enlarged lymph nodes. BLADDER: Urinary bladder is physiologically distended. No evidence of intraluminal urinary bladder calculi. REPRODUCTIVE: Apparent uterine vascular calcifications. BONES: Multilevel degenerative spondylosis of the lower thoracic and lumbar spine. No acute compression fractures nor retropulsed fragments.. Questionable old fracture deformity of the pubic symphysis. OTHER FINDINGS: None. IMPRESSION: Persistent redemonstrated is in situ cholecystostomy tube. Gallbladder is physiologically distended with what appears represent some faint intraluminal calculi. Small amount of pericholecystic fluid. Diminished perihepatic ascites.. See above discussion for additional details and findings.
[2018-06-29 16:58] LABS: VENOUS BLOOD GAS PCO2 45 mmHg (40-60); VENOUS BLOOD GAS PO2 25 mm/Hg (30-55); VENOUS BLOOD PH 7.38 (7.32-7.43)
[2018-06-29] MEDS ORDERED: Piperacillin/Tazobact 3.375 gm 100 ML IVPB ONE (17:44)
--- NOTE | 2018-06-29 18:53 | US ---
Date of service: 06/29/2018 HISTORY: History of cholecystitis. COMPARISON: June 28, 2018. CT abdomen and pelvis. Relevant interventional procedure(s): 06/04/2018 percutaneous cholecystotomy placement. TECHNIQUE: Sonographic evaluation of the abdomen. FINDINGS: LIVER: Measures 13 cm. Patent portal and hepatic venous systems. Hepatopedal blood flow. Fatty infiltration manifest ultrasonographically as increased echogenicity of the liver parenchyma. No mass. No intrahepatic bile duct dilatation. GALLBLADDER: Gallstones, sludge, gallbladder wall thickening, pericholecystic fluid and positive sonographic D[place] sign consistent with known cholecystitis. COMMON BILE DUCT: Measures 3.9 mm. No stones. No dilatation. PANCREAS: Obscured by overlying bowel gas. Non diagnostic assessment of the pancreas. RIGHT KIDNEY: Measures 4.6 x 10.1cm. Echogenic focus, midpole region contusion consistent with nonobstructing calculus. LEFT KIDNEY: Measures 4.8 x 9.6cm. Midpole calculus 4 x 5 mm. Incidental finding(s): Midpole cysts (2) measuring 1.1 x 1.5 cm and 1.3 x 1.5 cm. SPLEEN: Normal in size and contour. No mass. AORTA: No aneurysmal dilatation. IVC: Unremarkable. OTHER FINDINGS: None. IMPRESSION: Ultrasound manifestations of acute cholecystitis. Bilateral nonobstructing renal calculi. Limitations of the current examination: Nondiagnostic assessment of pancreas obscured by overlying bowel gas.
--- NOTE | 2018-06-29 19:43 | CP.PCM.HP ---
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) - HEENT Hx HEENT Problems: Yes Other/Comment: RT EYE PROSTHESIS - ENDOCRINE/METABOLIC Hx Diabetes Mellitus Type 2: Yes - HEMATOLOGICAL/ONCOLOGICAL Hx Anemia: Yes Hx Human Immunodeficiency Virus (HIV): No - MUSCULOSKELETAL/RHEUMATOLOGICAL Hx Falls: No - GASTROINTESTINAL Hx Constipation: Yes - PSYCHIATRIC Hx Substance Use: No - SURGICAL HISTORY Hx Appendectomy: Yes - ANESTHESIA Hx Anesthesia: Yes Hx Anesthesia Reactions: No Hx Malignant Hyperthermia: No Meds Allergies/Adverse Reactions: Allergies Allergy/AdvReac Type Severity Reaction Status Date / Time No Known Allergies Allergy Verified 05/30/18 11:27 Physical Exam - Constitutional Appears: Well - Head Exam Head Exam: ATRAUMATIC, NORMAL INSPECTION, NORMOCEPHALIC - Eye Exam Eye Exam: EOMI, Normal appearance, PERRL Pupil Exam: NORMAL ACCOMODATION, PERRL - ENT Exam ENT Exam: Mucous Membranes Moist, Normal Exam - Neck Exam Neck exam: Positive for: Normal Inspection - Respiratory Exam Respiratory Exam: Decreased Breath Sounds - Cardiovascular Exam Cardiovascular Exam: REGULAR RHYTHM, +S1, +S2 - GI/Abdominal Exam GI & Abdominal Exam: Diminished Bowel Sounds, Soft - Rectal Exam Rectal Exam: Deferred - Neurological Exam Neurological exam: Oriented x3 Results - Vital Signs Recent Vital Signs: Last Vital Signs Temp 97.4 F L 06/29/18 13:01 Pulse 77 06/29/18 17:53 Resp 15 06/29/18 17:53 BP 146/65 06/29/18 17:53 Pulse Ox 99 06/29/18 17:53 - Labs Result Diagrams: 06/29/18 13:57 06/29/18 13:57 Labs: Laboratory Results - last 24 hr 06/29/18 06/29/18 06/29/18 13:57 13:57 16:08 WBC 14.6 H RBC 4.88 Hgb 12.7 D Hct 39.9 MCV 81.8 D MCH 26.0 L MCHC 31.8 L RDW 17.1 H Plt Count 445 H D MPV 8.6 Neut % (Auto) 82.3 H Lymph % (Auto) 10.4 L Hubbard % (Auto) 6.4 Eos % (Auto) 0.4 Baso % (Auto) 0.5 Neut # (Auto) 12.0 H Lymph # (Auto) 1.5 Hubbard # (Auto) 0.9 H Eos # (Auto) 0.1 Baso # (Auto) 0.1 pO2 VBG pH VBG pCO2 VBG HCO3 VBG Total CO2 VBG O2 Sat (Calc) VBG Base Excess VBG Potassium Glucose Lactate Sodium 146 Potassium 5.4 H Chloride 108 H Carbon Dioxide 26 Anion Gap 17 BUN 22 H Creatinine 1.8 H Est GFR ( Amer) 34 Est GFR (Non-Af Amer) 28 POC Glucose (mg/dL) 246 H Random Glucose 49 L D Calcium 9.6 Total Bilirubin 0.9 AST 57 H D ALT 13 Alkaline Phosphatase 139 H D Lipase 24 Venous Blood Potassium 06/29/18 16:55 WBC RBC Hgb Hct MCV MCH MCHC RDW Plt Count MPV Neut % (Auto) Lymph % (Auto) Hubbard % (Auto) Eos % (Auto) Baso % (Auto) Neut # (Auto) Lymph # (Auto) Hubbard # (Auto) Eos # (Auto) Baso # (Auto) pO2 25 L VBG pH 7.38 VBG pCO2 45 VBG HCO3 24.2 VBG Total CO2 28.0 VBG O2 Sat (Calc) 39.5 L VBG Base Excess 1.0 VBG Potassium 4.1 Glucose 173 H Lactate 1.5 Sodium 146.0 Potassium Chloride 109.0 H Carbon Dioxide Anion Gap BUN Creatinine Est GFR ( Amer) Est GFR (Non-Af Amer) POC Glucose (mg/dL) Random Glucose Calcium Total Bilirubin AST ALT Alkaline Phosphatase Lipase Venous Blood Potassium 4.1
[2018-06-29] MEDS ORDERED: Sodium Chloride 0.9% 1,000 ML IV SCH (19:45)
[2018-06-29] MEDS ORDERED: Vancomycin 1 GM 1 GM/250 ML BAG IVPB ONE (19:52)
[2018-06-29] MEDS ORDERED: Lidocaine Hydrochloride 5 ML INJ ONE (19:55)
[2018-06-29] MEDS ORDERED: Lidocaine 1%/Epinephrine 1:100000 30 ml vial IJ ONE (20:00)
--- NOTE | 2018-06-29 20:23 | CP.PCM.PCO ---
Physician Communication Note - Physician Communication Note Physician Communication Note: Yolanda tube secured with 2-0 prolene at skin level
[2018-06-29] MEDS: Vancomycin Hydrochloride 250 mg Capsule (Oral) PO SCH (22:14)
[2018-06-30] MEDS: Piperacill/Tazo 3.375gm in Dex 3.375 GM/50 ML BAG IVPB SCH ×4 (00:30→17:17)
[2018-06-30] MEDS: Dextrose 5%/0.9% NS 1,000 ML IV SCH ×2 (06:45→21:06)
--- NOTE | 2018-06-30 09:38 | CP.PCM.CON ---
<Margoth Ibarra - Last Filed: 06/30/18 09:39> History of Present Illness - History of Present Illness History of Present Illness: GI Fellow Consult Note 67yo F w PMHx of DM, HTN, CVA here for evaluation of weakness, nausea, vomiting and poor appetite. She was recently admitted for acute cholecystitis and obtained cholecystostomy tube and was discharged. Pt reportedly on po vancomycin at home. Patient denies any abdominal pain, nausea or vomiting now. She is a poor historiann. On review of EMR, family reported nausea and non-bilious emesis a few hours after any PO food intake. Patient is able to tolerate liquids. Cholecystostomy tube in place with bilious drainage noted. Denies any fevers or chills. No urinary complaints. No sick contacts. No issues overnight per nursing. ROS: A 12pt ROS was negative except as above. 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) - HEENT Hx HEENT Problems: Yes Other/Comment: RT EYE PROSTHESIS - RENAL Hx Chronic Kidney Disease: No - ENDOCRINE/METABOLIC Hx Diabetes Mellitus Type 2: Yes - HEMATOLOGICAL/ONCOLOGICAL Hx Anemia: Yes Hx Human Immunodeficiency Virus (HIV): No - INTEGUMENTARY Hx Dermatological Problems: No - MUSCULOSKELETAL/RHEUMATOLOGICAL Hx Falls: No - GASTROINTESTINAL Hx Constipation: Yes - GENITOURINARY/GYNECOLOGICAL Hx Genitourinary Disorders: No - PSYCHIATRIC Hx Substance Use: No - SURGICAL HISTORY Hx Appendectomy: Yes - ANESTHESIA Hx Anesthesia: Yes Hx Anesthesia Reactions: No Hx Malignant Hyperthermia: No Has any member of the family had a problem w/ anesthesia?: No Meds Allergies/Adverse Reactions: Allergies Allergy/AdvReac Type Severity Reaction Status Date / Time No Known Allergies Allergy Verified 05/30/18 11:27 - Medications Medications: Current Medications Amlodipine Besylate (Norvasc) 10 mg PO DAILY [facility] Carvedilol (Coreg) 6.25 mg PO BID [facility] Heparin Sodium (Porcine) (Heparin) 5,000 units SC Q12 [facility] Vancomycin HCl 1 gm/ Sodium (Chloride) 250 mls @ 166.7 mls/hr IVPB Q24H [facility]; Protocol Last Admin: 06/29/18 21:30 Dose: Not Given Sodium Chloride (Sodium Chloride 0.9%) 1,000 mls @ 75 mls/hr IV .[id number] [facility] Last Admin: 06/29/18 22:08 Dose: 75 mls/hr Piperacillin Sod/Tazobactam Sod (Zosyn 3.375 Gm Iv Premix) 3.375 gm in 50 mls @ 100 mls/hr IVPB Q6H [facility]; Protocol Last Admin: 06/30/18 05:30 Dose: 100 mls/hr Dextrose/Sodium Chloride (Dextrose 5%/0.9% Ns 1000 Ml) 1,000 mls @ 75 mls/hr IV .[id number] [facility] Last Admin: 06/30/18 06:45 Dose: 75 mls/hr Losartan Potassium (Cozaar) 25 mg PO DAILY [facility] Saccharomyces Boulardii (Florastor) 250 mg PO BID [facility] Vancomycin HCl (Vancocin 250mg Capsule) 250 mg PO QID [facility] Last Admin: 06/29/18 22:14 Dose: Not Given Physical Exam - Constitutional Appears: Non-toxic, No Acute Distress, Chronically Ill - Head Exam Head Exam: ATRAUMATIC, NORMAL INSPECTION, NORMOCEPHALIC - Eye Exam Eye Exam: EOMI, Normal appearance, PERRL Pupil Exam: PERRL - ENT Exam ENT Exam: Mucous Membranes Dry, Normal Exam - Neck Exam Neck exam: Positive for: Full Rom, Normal Inspection - Respiratory Exam Respiratory Exam: Decreased Breath Sounds, NORMAL BREATHING PATTERN - Cardiovascular Exam Cardiovascular Exam: REGULAR RHYTHM, RRR, +S1, +S2 - GI/Abdominal Exam GI & Abdominal Exam: Normal Bowel Sounds, Soft. absent: Distended, Firm, G uarding, Hernia, Organomegaly Additional comments: CT with bilious output - Rectal Exam Rectal Exam: Deferred - Extremities Exam Extremities exam: Positive for: full ROM, normal inspection - Back Exam Back exam: NORMAL INSPECTION - Neurological Exam Neurological exam: Alert, Oriented x3 - Psychiatric Exam Psychiatric exam: Flat Affect - Skin Skin Exam: Dry, Intact, Normal Color, Warm Results - Vital Signs Recent Vital Signs: Last Vital Signs Temp 97.3 F L 06/30/18 07:00 Pulse 84 06/30/18 08:37 Resp 20 06/30/18 07:00 BP 179/74 H 06/30/18 07:00 Pulse Ox 100 06/30/18 07:00 - Labs Result Diagrams: 06/29/18 13:57 06/29/18 13:57 Labs: Laboratory Results - last 24 hr 06/29/18 06/29/18 06/29/18 13:57 13:57 16:08 WBC 14.6 H RBC 4.88 Hgb 12.7 D Hct 39.9 MCV 81.8 D MCH 26.0 L MCHC 31.8 L RDW 17.1 H Plt Count 445 H D MPV 8.6 Neut % (Auto) 82.3 H Lymph % (Auto) 10.4 L [place] % (Auto) 6.4 Eos % (Auto) 0.4 Baso % (Auto) 0.5 Neut # (Auto) 12.0 H Lymph # (Auto) 1.5 [place] # (Auto) 0.9 H Eos # (Auto) 0.1 Baso # (Auto) 0.1 pO2 VBG pH VBG pCO2 VBG HCO3 VBG Total CO2 VBG O2 Sat (Calc) VBG Base Excess VBG Potassium Glucose Lactate Sodium 146 Potassium 5.4 H Chloride 108 H Carbon Dioxide 26 Anion Gap 17 BUN 22 H Creatinine 1.8 H Est GFR ( Amer) 34 Est GFR (Non-Af Amer) 28 POC Glucose (mg/dL) 246 H Random Glucose 49 L D Calcium 9.6 Total Bilirubin 0.9 AST 57 H D ALT 13 Alkaline Phosphatase 139 H D Lipase 24 Venous Blood Potassium 06/29/18 06/29/18 06/30/18 16:55 19:57 06:20 WBC RBC Hgb Hct MCV MCH MCHC RDW Plt Count MPV Neut % (Auto) Lymph % (Auto) [place] % (Auto) Eos % (Auto) Baso % (Auto) Neut # (Auto) Lymph # (Auto) [place] # (Auto) Eos # (Auto) Baso # (Auto) pO2 25 L VBG pH 7.38 VBG pCO2 45 VBG HCO3 24.2 VBG Total CO2 28.0 VBG O2 Sat (Calc) 39.5 L VBG Base Excess 1.0 VBG Potassium 4.1 Glucose 173 H Lactate 1.5 Sodium 146.0 Potassium Chloride 109.0 H Carbon Dioxide Anion Gap BUN Creatinine Est GFR ( Amer) Est GFR (Non-Af Amer) POC Glucose (mg/dL) 93 70 Random Glucose Calcium Total Bilirubin AST ALT Alkaline Phosphatase Lipase Venous Blood Potassium 4.1 Assessment & Plan - Assessment and Plan (Free Text) Assessment: 67yo F with PMHx of DM, HTN, CVA with c/o and recent cholecystostomy tube placement (06/04/18) for cholecystitis pw with N/V/D. Plan: -Continue supportive care with IVFs and anti-emetics - Abd US and CT Abd/Pelvis with no significant pathology, prior CT for cholecystitis and moderate liquid stool - CT tube draining bilious output, abdomen soft and non-tender; Low suspicion of GB source for current symptoms - Pt comfortable with no GI issues at this time - Will order infectious stool work up and r/o C diff - Pt on multiple abx, should be narrowed will defer to primary team - Advance to clear liquid diet - No plan for any procedures - Will continue to follow pt <Rigoberto Castillo - Last Filed: 06/30/18 16:08> Meds - Medications Medications: Current Medications Amlodipine Besylate (Norvasc) 10 mg PO DAILY [facility] Last Admin: 06/30/18 10:47 Dose: 10 mg Carvedilol (Coreg) 6.25 mg PO BID [facility] Last Admin: 06/30/18 10:47 Dose: 6.25 mg Heparin Sodium (Porcine) (Heparin) 5,000 units SC Q12 [facility] Last Admin: 06/30/18 10:48 Dose: 5,000 units Vancomycin HCl 1 gm/ Sodium (Chloride) 250 mls @ 166.7 mls/hr IVPB Q24H [facility]; Protocol Last Admin: 06/30/18 14:46 Dose: 166.7 mls/hr Sodium Chloride (Sodium Chloride 0.9%) 1,000 mls @ 75 mls/hr IV .[id number] [facility] Last Admin: 06/29/18 22:08 Dose: 75 mls/hr Piperacillin Sod/Tazobactam Sod (Zosyn 3.375 Gm Iv Premix) 3.375 gm in 50 mls @ 100 mls/hr IVPB Q6H [facility]; Protocol Last Admin: 06/30/18 12:36 Dose: 100 mls/hr Dextrose/Sodium Chloride (Dextrose 5%/0.9% Ns 1000 Ml) 1,000 mls @ 75 mls/hr IV .[id number] [facility] Last Admin: 06/30/18 06:45 Dose: 75 mls/hr Losartan Potassium (Cozaar) 25 mg PO DAILY [facility] Last Admin: 06/30/18 10:47 Dose: 25 mg Saccharomyces Boulardii (Florastor) 250 mg PO BID [facility] Last Admin: 06/30/18 10:48 Dose: 250 mg Vancomycin HCl (Vancocin 250mg Capsule) 250 mg PO QID [facility] Last Admin: 06/30/18 14:49 Dose: 250 mg Results - Vital Signs Recent Vital Signs: Last Vital Signs Temp 97.3 F L 06/30/18 07:00 Pulse 84 06/30/18 08:37 Resp 20 06/30/18 07:00 BP 179/74 H 06/30/18 07:00 Pulse Ox 100 06/30/18 13:26 - Labs Result Diagrams: 06/30/18 11:42 06/30/18 11:42 Labs: Laboratory Results - last 24 hr 06/29/18 06/29/18 06/29/18 13:57 16:08 16:55 WBC RBC Hgb Hct MCV MCH MCHC RDW Plt Count MPV Neut % (Auto) Lymph % (Auto) [place] % (Auto) Eos % (Auto) Baso % (Auto) Neut # (Auto) Lymph # (Auto) [place] # (Auto) Eos # (Auto) Baso # (Auto) pO2 25 L VBG pH 7.38 VBG pCO2 45 VBG HCO3 24.2 VBG Total CO2 28.0 VBG O2 Sat (Calc) 39.5 L VBG Base Excess 1.0 VBG Potassium 4.1 Glucose 173 H Lactate 1.5 Sodium 146 146.0 Potassium 5.4 H Chloride 108 H 109.0 H Carbon Dioxide 26 Anion Gap 17 BUN 22 H Creatinine 1.8 H Est GFR ( Amer) 34 Est GFR (Non-Af Amer) 28 POC Glucose (mg/dL) 246 H Random Glucose 49 L D Calcium 9.6 Total Bilirubin 0.9 AST 57 H D ALT 13 Alkaline Phosphatase 139 H D Total Protein Albumin Globulin Albumin/Globulin Ratio Lipase 24 Venous Blood Potassium 4.1 06/29/18 06/30/18 06/30/18 19:57 06:20 11:42 WBC 10.5 RBC 4.08 Hgb 10.4 L D Hct 33.1 L MCV 81.3 MCH 25.6 L MCHC 31.5 L RDW 16.6 H Plt Count 354 MPV 8.7 Neut % (Auto) 75.6 H Lymph % (Auto) 13.9 L [place] % (Auto) 7.6 Eos % (Auto) 2.1 Baso % (Auto) 0.8 Neut # (Auto) 7.9 H Lymph # (Auto) 1.5 [place] # (Auto) 0.8 Eos # (Auto) 0.2 Baso # (Auto) 0.1 pO2 VBG pH VBG pCO2 VBG HCO3 VBG Total CO2 VBG O2 Sat (Calc) VBG Base Excess VBG Potassium Glucose Lactate Sodium Potassium Chloride Carbon Dioxide Anion Gap BUN Creatinine Est GFR ( Amer) Est GFR (Non-Af Amer) POC Glucose (mg/dL) 93 70 Random Glucose Calcium Total Bilirubin AST ALT Alkaline Phosphatase Total Protein Albumin Globulin Albumin/Globulin Ratio Lipase Venous Blood Potassium 06/30/18 11:42 WBC RBC Hgb Hct MCV MCH MCHC RDW Plt Count MPV Neut % (Auto) Lymph % (Auto) [place] % (Auto) Eos % (Auto) Baso % (Auto) Neut # (Auto) Lymph # (Auto) [place] # (Auto) Eos # (Auto) Baso # (Auto) pO2 VBG pH VBG pCO2 VBG HCO3 VBG Total CO2 VBG O2 Sat (Calc) VBG Base Excess VBG Potassium Glucose Lactate Sodium 148 Potassium 4.0 Chloride 111 H Carbon Dioxide 25 Anion Gap 16 BUN 18 H Creatinine 1.9 H Est GFR ( Amer) 32 Est GFR (Non-Af Amer) 26 POC Glucose (mg/dL) Random Glucose 165 H D Calcium 8.2 L Total Bilirubin 0.7 AST 27 ALT 16 Alkaline Phosphatase 126 Total Protein 6.9 Albumin 3.4 L D Globulin 3.6 Albumin/Globulin Ratio 0.9 L Lipase Venous Blood Potassium Attending/Attestation - Attestation I have personally seen and examined this patient.: Yes I have fully participated in the care of the patient.: Yes I have reviewed all pertinent clinical information: Yes Notes (Text): 06/30/18 16:04 I have seen and examined patient with GI fellow. Agree with above documentation with the following additions. In brief, this is a 67 year old female with history of DM, HTN, CVA who presents for evaluation of nausea, vomiting, and pr ogressive weakness. She was recently hospitalized for treatment of acute cholecystitis s/p PTC drain placement with plan for future cholecystectomy. She reports having non-bloody emesis yesterday which has now resolved since arrival to hospital. She denies abdominal pain, fever/chills, weight loss, rectal bleeding, or change in bowel habits. Unclear regarding prior endoscopic history. DM/HTN CVA Cholecystitis s/p PTC drain Nausea, vomiting - resolved - Liquid diet as tolerated - Continue with IVF hydration, supportive care - Anti-emetic therapy PRN - Follow up surgical recommendations regarding plan for future cholecystectomy - Obtain blood cultures, stool studies - Will continue to monitor patient clinical course
--- NOTE | 2018-06-30 10:38 | CP.PCM.CON ---
History of Present Illness - History of Present Illness History of Present Illness: 67yo F with PMHx of DM, HTN, CVA with c/o and recent cholecystostomy tube placement (06/04/18) for cholecystitis pw with N/V/D. denies fever or chills No chest pain cough or SOB Review of Systems - Review of Systems All systems: reviewed and no additional remarkable complaints except - Constitutional Constitutional: As Per HPI - EENT Eyes: absent: As Per HPI, Blind Spots, Blurred Vision, Change in Vision, Decreased Night Vision, Diplopia, Discharge, Dry Eye, Exophthalmos, Floaters, Ir ritation, Itchy Eyes, Loss of Peripheral Vision, Pain, Photophobia, Requires Corrective Lenses, Sees Flashes, Spots in Vision, Tunnel Vision, Other Visual Disturbances, Loss of Vision, Other Ears: absent: As Per HPI, Decreased Hearing, Ear Discharge, Ear Pain, Tinnitus, Abnormal Hearing, Disequilibrium, Dizziness, Other Nose/Mouth/Throat: absent: As Per HPI, Epistaxis, Nasal Congestion, Nasal Discharge, Nasal Obstruction, Nasal Trauma, Nose Pain, Post Nasal Drip, Sinus Pain, Sinus Pressure, Bleeding Gums, Change in Voice, Dental Pain, Dry Mouth, Dysphagia, Halitosis, Hoarsness, Lip Swelling, Mouth Lesions, Mouth Pain, Odynophagia, Sore Throat, Throat Swelling, Tongue Swelling, Facial Pain, Neck Pain, Neck Mass, Other - Breasts Breasts: absent: As Per HPI, Change in Shape, Mass, Pain, Nipple Discharge, Nipple Inversion, Skin Changes, Swelling, Other - Cardiovascular Cardiovascular: absent: As Per HPI, Acrocyanosis, Chest Pain, Chest Pain at Rest, Chest Pain with Activity, Claudication, Diaphoresis, Dyspnea, Dyspnea on Exertion, Edema, Irregular Heart Rhythm, Pain Radiating to Arm/Neck/Jaw, Leg Edema, Leg Ulcers, Lightheadedness, Orthopnea, Palpitations, Paroxysmal Nocturnal Dyspnea, Pedal Edema, Radiating Pain, Rapid Heart Rate, Slow Heart Rate, Syncope, Other - Respiratory Respiratory: absent: As Per HPI, Cough, Dyspnea, Hemoptysis, Dyspnea on Exertion, Wheezing, Snoring, Stridor, Pain on Inspiration, Chest Congestion, Excessive Mucous Production, Change in Mucous Color, Pain with Coughing, Other - Gastrointestinal Gastrointestinal: As Per HPI - Genitourinary Genitourinary: absent: As Per HPI, Change in Urinary Stream, Difficulty Urinating, Dysuria, Flank Pain, Hematuria, Pyuria, Nocturia, Urinary Incontinence, Urinary Frequency, Urinary Hesitance, Urinary Urgency, Voiding Freq/Small Amts, Freq UTI, Hx Renal/Bladder Calculi, Hx /Renal Surgery, Bladder Distension, Other - Reproductive: Female Reproductive:Female: absent: As Per HPI, Amenorrhea, Amenorrhea/ Control, Currently Menstual, Cycle <21 Days, Cycle >35 Days, Cycle Variable, Menses 1-7 Days, Menses >/= 8 Days, Menses Variable, Cycle > 4 Weeks Between, No Menses for 6 Months, Heavy Menses, Light Menses, Normal Menses, Spotting Between Cycles, S/P Hysterectomy, Menopausal, Post Menopausal, Premenarche, Abnormal Vaginal Bleeding, Dysmenorrhea, Dyspareunia, Genital Lesions, Genital Pruritis, Pelvic Pain, Prolapse Symptoms, Sexual Dysfunction, Vaginal Discharge, Vaginal Dryness, Vaginal Odor, Vaginal Pruritis, Other - Menstruation Menstruation: absent: As Per HPI, Amenorrhea, Amenorrhea/ Control, Currently Menstual, Cycle <21 Days, Cycle >35 Days, Cycle Variable, Menses 1-7 Days, Menses >/= 8 Days, Menses Variable, Cycle > 4 Weeks Between, No Menses for 6 Months, Heavy Menses, Light Menses, Normal Menses, Spotting Between Cycles, S/P Hysterectomy, Menopausal, Post Menopausal, Premenarche, Abnormal Vaginal Bleeding, Dysmenorrhea, Other - Musculoskeletal Musculoskeletal: absent: As Per HPI, Abnormal Gait, Arthralgias, Atrophy, Back Pain, Deformity, Joint Swelling, Limited Range of Motion, Loss of Height, Muscle Cramps, Muscle Weakness, Myalgias, Neck Pain, Numbness, Radiating Pain into Limb, Stiffness, Tingling, Other - Integumentary Integumentary: absent: As Per HPI, Acne, Alopecia, Bleeding Lesions, Change in Hair, Change in Nails, Change in Pigmentation, Changing Lesions, Dry Skin, Erythema, Furuncle, Hirsutism, Lesions, New Lesions, Non-Healing Lesions, Photosensitivity, Pruritus, Rash, Skin Pain, Skin Ulcer, Sores, Striae, Swelling, Unusual Bruising, Wounds, Jaundice, Other - Neurological Neurological: absent: As Per HPI, Abnormal Gait, Abnormal Hearing, Abnormal Movements, Abnormal Speech, Behavioral Changes, Burning Sensations, Confusion, Convulsions, Disequilibrium, Dizziness, Numbness, Focal Weakness, Frequent Falls, Headaches, Lack of Coordination, Loss of Vision, Memory Loss, Paresthesias, Radicular Pain, Restless Legs, Sensory Deficit, Syncope, Tingling, Tremor, Vertigo, Weakness, Other Visual Disturbances, Other - Psychiatric Psychiatric: absent: As Per HPI, Abnormal Sleep Pattern, Anhedonia, Anxiety, Auditory Hallucinations, Behavioral Changes, Change in Appetite, Change in Libido, Confusion, Depression, Difficulty Concentrating, Hallucinations, Homicidal Ideation, Hopelessness, Irritability, Memory Loss, Mood Swings, Panic Attacks, Paranoia, Suicidal Ideation, Visual Hallucinations, Tactile Hallucinations, Other - Endocrine Endocrine: absent: As Per HPI, Change in Body Appearance, Change in Libido, Cold Intolorance, Deepening of Voice, Excessive Sweating, Fatigue, Flushing, Heat Intolorance, Increase in Ring/Shoe/Hat Size, Palpitations, Polydipsia, Polyphagia, Polyuria, Other - Hematologic/Lymphatic Hematologic: absent: As Per HPI, Easy Bleeding, Easy Bruising, Lymphadenopathy, Other 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) - HEENT Hx HEENT Problems: Yes Other/Comment: RT EYE PROSTHESIS - RENAL Hx Chronic Kidney Disease: No - ENDOCRINE/METABOLIC Hx Diabetes Mellitus Type 2: Yes - HEMATOLOGICAL/ONCOLOGICAL Hx Anemia: Yes Hx Human Immunodeficiency Virus (HIV): No - INTEGUMENTARY Hx Dermatological Problems: No - MUSCULOSKELETAL/RHEUMATOLOGICAL Hx Falls: No - GASTROINTESTINAL Hx Constipation: Yes - GENITOURINARY/GYNECOLOGICAL Hx Genitourinary Disorders: No - PSYCHIATRIC Hx Substance Use: No - SURGICAL HISTORY Hx Appendectomy: Yes - ANESTHESIA Hx Anesthesia: Yes Hx Anesthesia Reactions: No Hx Malignant Hyperthermia: No Has any member of the family had a problem w/ anesthesia?: No Meds Allergies/Adverse Reactions: Allergies Allergy/AdvReac Type Severity Reaction Status Date / Time No Known Allergies Allergy Verified 05/30/18 11:27 - Medications Medications: Current Medications Amlodipine Besylate (Norvasc) 10 mg PO DAILY [facility] Carvedilol (Coreg) 6.25 mg PO BID [facility] Heparin Sodium (Porcine) (Heparin) 5,000 units SC Q12 [facility] Vancomycin HCl 1 gm/ Sodium (Chloride) 250 mls @ 166.7 mls/hr IVPB Q24H [facility]; Protocol Last Admin: 06/29/18 21:30 Dose: Not Given Sodium Chloride (Sodium Chloride 0.9%) 1,000 mls @ 75 mls/hr IV .[id number] [facility] Last Admin: 06/29/18 22:08 Dose: 75 mls/hr Piperacillin Sod/Tazobactam Sod (Zosyn 3.375 Gm Iv Premix) 3.375 gm in 50 mls @ 100 mls/hr IVPB Q6H [facility]; Protocol Last Admin: 06/30/18 05:30 Dose: 100 mls/hr Dextrose/Sodium Chloride (Dextrose 5%/0.9% Ns 1000 Ml) 1,000 mls @ 75 mls/hr IV .[id number] [facility] Last Admin: 06/30/18 06:45 Dose: 75 mls/hr Losartan Potassium (Cozaar) 25 mg PO DAILY [facility] Saccharomyces Boulardii (Florastor) 250 mg PO BID [facility] Vancomycin HCl (Vancocin 250mg Capsule) 250 mg PO QID [facility] Last Admin: 06/29/18 22:14 Dose: Not Given Physical Exam - Constitutional Appears: Non-toxic, No Acute Distress, Chronically Ill - Head Exam Head Exam: ATRAUMATIC, NORMAL INSPECTION, NORMOCEPHALIC - Eye Exam Eye Exam: EOMI, Normal appearance, PERRL Pupil Exam: NORMAL ACCOMODATION, PERRL - ENT Exam ENT Exam: Mucous Membranes Moist, Normal Exam - Neck Exam Neck exam: Positive for: Normal Inspection - Respiratory Exam Respiratory Exam: Clear to Auscultation Bilateral, NORMAL BREATHING PATTERN - Cardiovascular Exam Cardiovascular Exam: REGULAR RHYTHM - GI/Abdominal Exam GI & Abdominal Exam: Normal Bowel Sounds, Soft. absent: Tenderness - Rectal Exam Rectal Exam: Deferred Additional comments: RUQ tube in place with bile drainage - Exam Exam: NORMAL INSPECTION - Extremities Exam Extremities exam: Positive for: normal inspection - Back Exam Back exam: NORMAL INSPECTION - Neurological Exam Neurological exam: Alert, CN II-XII Intact, Normal Gait, Oriented x3, Reflexes Normal - Psychiatric Exam Psychiatric exam: Normal Affect, Normal Mood - Skin Skin Exam: Dry, Intact, Normal Color, Warm Results - Vital Signs Recent Vital Signs: Last Vital Signs Temp 97.3 F L 06/30/18 07:00 Pulse 84 06/30/18 08:37 Resp 20 06/30/18 07:00 BP 179/74 H 06/30/18 07:00 Pulse Ox 100 06/30/18 07:00 - Labs Result Diagrams: 07/02/18 11:14 07/02/18 11:14 Labs: Laboratory Results - last 24 hr 06/29/18 06/29/18 06/29/18 13:57 13:57 16:08 WBC 14.6 H RBC 4.88 Hgb 12.7 D Hct 39.9 MCV 81.8 D MCH 26.0 L MCHC 31.8 L RDW 17.1 H Plt Count 445 H D MPV 8.6 Neut % (Auto) 82.3 H Lymph % (Auto) 10.4 L [place] % (Auto) 6.4 Eos % (Auto) 0.4 Baso % (Auto) 0.5 Neut # (Auto) 12.0 H Lymph # (Auto) 1.5 [place] # (Auto) 0.9 H Eos # (Auto) 0.1 Baso # (Auto) 0.1 pO2 VBG pH VBG pCO2 VBG HCO3 VBG Total CO2 VBG O2 Sat (Calc) VBG Base Excess VBG Potassium Glucose Lactate Sodium 146 Potassium 5.4 H Chloride 108 H Carbon Dioxide 26 Anion Gap 17 BUN 22 H Creatinine 1.8 H Est GFR ( Amer) 34 Est GFR (Non-Af Amer) 28 POC Glucose (mg/dL) 246 H Random Glucose 49 L D Calcium 9.6 Total Bilirubin 0.9 AST 57 H D ALT 13 Alkaline Phosphatase 139 H D Lipase 24 Venous Blood Potassium 06/29/18 06/29/18 06/30/18 16:55 19:57 06:20 WBC RBC Hgb Hct MCV MCH MCHC RDW Plt Count MPV Neut % (Auto) Lymph % (Auto) [place] % (Auto) Eos % (Auto) Baso % (Auto) Neut # (Auto) Lymph # (Auto) [place] # (Auto) Eos # (Auto) Baso # (Auto) pO2 25 L VBG pH 7.38 VBG pCO2 45 VBG HCO3 24.2 VBG Total CO2 28.0 VBG O2 Sat (Calc) 39.5 L VBG Base Excess 1.0 VBG Potassium 4.1 Glucose 173 H Lactate 1.5 Sodium 146.0 Potassium Chloride 109.0 H Carbon Dioxide Anion Gap BUN Creatinine Est GFR ( Amer) Est GFR (Non-Af Amer) POC Glucose (mg/dL) 93 70 Random Glucose Calcium Total Bilirubin AST ALT Alkaline Phosphatase Lipase Venous Blood Potassium 4.1 Assessment & Plan - Assessment and Plan (Free Text) Assessment: s/p cholecystitis resolved cholangitis GI on board cultures sent IV rx started empirically
[2018-06-30] MEDS: Saccharomyces Boulardi 250 mg Cap PO SCH ×2 (10:48→21:06)
[2018-06-30] MEDS: Vancomycin Hydrochloride 250 mg Capsule (Oral) PO SCH ×4 (10:54→21:07)
--- NOTE | 2018-06-30 11:43 | CP.PCM.PN ---
<Ivan Baires - Last Filed: 06/30/18 16:53> Subjective - Date & Time of Evaluation Date of Evaluation: 06/30/18 Time of Evaluation: 06:58 - Subjective Subjective: General Surgery Note for Dr. Dorsey Patient seen and examined at bedside. No acute event overnight. Patient states pain is improved today. Patient has not been out of bed. She is drinking minimal liquids. Objective - Vital Signs/Intake and Output Vital Signs (last 24 hours): Temp Pulse Resp BP Pulse Ox 97.3 F L 84 20 179/74 H 100 06/30/18 07:00 06/30/18 08:37 06/30/18 07:00 06/30/18 07:00 06/30/18 07:00 Intake and Output: 06/30/18 06/30/18 06:59 18:59 Intake Total 725 Output Total 110 Balance 615 - Medications Medications: Current Medications Amlodipine Besylate (Norvasc) 10 mg PO DAILY [facility] Last Admin: 06/30/18 10:47 Dose: 10 mg Carvedilol (Coreg) 6.25 mg PO BID [facility] Last Admin: 06/30/18 10:47 Dose: 6.25 mg Heparin Sodium (Porcine) (Heparin) 5,000 units SC Q12 [facility] Last Admin: 06/30/18 10:48 Dose: 5,000 units Vancomycin HCl 1 gm/ Sodium (Chloride) 250 mls @ 166.7 mls/hr IVPB Q24H [facility]; Protocol Last Admin: 06/29/18 21:30 Dose: Not Given Sodium Chloride (Sodium Chloride 0.9%) 1,000 mls @ 75 mls/hr IV .[id number] [facility] Last Admin: 06/29/18 22:08 Dose: 75 mls/hr Piperacillin Sod/Tazobactam Sod (Zosyn 3.375 Gm Iv Premix) 3.375 gm in 50 mls @ 100 mls/hr IVPB Q6H [facility]; Protocol Last Admin: 06/30/18 05:30 Dose: 100 mls/hr Dextrose/Sodium Chloride (Dextrose 5%/0.9% Ns 1000 Ml) 1,000 mls @ 75 mls/hr IV .[id number] [facility] Last Admin: 06/30/18 06:45 Dose: 75 mls/hr Losartan Potassium (Cozaar) 25 mg PO DAILY [facility] Last Admin: 06/30/18 10:47 Dose: 25 mg Saccharomyces Boulardii (Florastor) 250 mg PO BID [facility] Last Admin: 06/30/18 10:48 Dose: 250 mg Vancomycin HCl (Vancocin 250mg Capsule) 250 mg PO QID [facility] Last Admin: 06/30/18 10:54 Dose: 250 mg - Labs Labs: 06/29/18 13:57 06/29/18 13:57 - Constitutional Appears: No Acute Distress - Head Exam Head Exam: ATRAUMATIC, NORMOCEPHALIC - Eye Exam Eye Exam: Normal appearance - ENT Exam ENT Exam: Mucous Membranes Moist - Respiratory Exam Respiratory Exam: NORMAL BREATHING PATTERN - GI/Abdominal Exam GI & Abdominal Exam: Soft, Normal Bowel Sounds. absent: Distended, Firm, Guarding, Rigid, Tenderness, Rebound Additional comments: cholecystostomy tube in place - Extremities Exam Extremities Exam: Normal Capillary Refill - Back Exam Back Exam: absent: CVA tenderness (L), CVA tenderness (R) - Neurological Exam Neurological Exam: Alert, Awake, Oriented x3 - Psychiatric Exam Psychiatric exam: absent: Normal Affect, Normal Mood - Skin Skin Exam: Dry, Intact, Warm Assessment and Plan - Assessment and Plan (Free Text) Assessment: 67F s/p cholecystostomy tube on last visit who presents with weakness and poor oral intake Plan: -diet as tolerated -kleber tube in place -no plans for surgical intervention this admission -f/u as outpatient in office, will plan for cholecystectomy in 4-6 weeks -discussed with Dr. Sunita Baires PGY2 <Anatoly Dorsey B - Last Filed: 07/05/18 20:54> Objective - Vital Signs/Intake and Output Vital Signs (last 24 hours): Temp Pulse Resp BP Pulse Ox 98.3 F 74 20 136/64 97 07/04/18 14:38 07/04/18 14:38 07/04/18 14:38 07/04/18 14:38 07/04/18 14:38 - Labs Labs: 07/03/18 07:30 07/03/18 07:30 Attending/Attestation - Attestation I have personally seen and examined this patient.: Yes I have fully participated in the care of the patient.: Yes I have reviewed all pertinent clinical information, including history, physical exam and plan: Yes Notes (Text): Pt was seen and examined at bedside Agree with above note and assessment Pt is improving clinically C.w current mx Cholecystostomy tube is in place IV antibiotics f.u as out pt for Cholecystectomy after 6 weeks Plan d.w pt in detail Risk and benefit explained in detail.
[2018-06-30 11:50] LABS: BASO # 0.1 K/uL (0.0-0.2); BASO % 0.8 % (0.0-2.0); EOS # 0.2 K/uL (0.0-0.7); EOS % 2.1 % (0.0-4.0); LYMPH # 1.5 K/uL (1.0-4.3); LYMPH % 13.9 % (20.0-40.0); MEAN CELL VOLUME 81.3 fL (81.0-99.0); MEAN CORPUSCULAR HEMOGLOBIN 25.6 pg (27.0-31.0); MEAN CORPUSCULAR HGB CONC 31.5 g/dL (33.0-37.0); MEAN PLATELET VOLUME 8.7 fL (7.2-11.7); MONO # 0.8 K/uL (0.0-0.8); MONO % 7.6 % (0.0-10.0); NEUT # 7.9 K/uL (1.8-7.0); NEUT % 75.6 % (50.0-75.0); RBC 4.08 Mil/uL (3.80-5.20); RED CELL DISTRIBUTION WIDTH 16.6 % (11.5-14.5); WHITE BLOOD COUNT 10.5 K/uL (4.8-10.8)
[2018-06-30 12:04] LABS: HEMOGLOBIN 10.4 g/dL (11.0-16.0)
[2018-06-30 12:09] LABS: ALB/GLOB RATIO 0.9 (1.0-2.1); ALBUMIN 3.4 g/dL (3.5-5.0); CALCIUM 8.2 mg/dl (8.6-10.4)
--- NOTE | 2018-06-30 19:23 | CP.PCM.PN ---
Subjective - Date & Time of Evaluation Date of Evaluation: 06/30/18 - Subjective Subjective: patient examined today no nausea no diarrhea no vomiting no fever no dizziness no shortness of breat Objective - Vital Signs/Intake and Output Vital Signs (last 24 hours): Temp Pulse Resp BP Pulse Ox 97.6 F 64 20 149/60 94 L 06/30/18 15:17 06/30/18 15:45 06/30/18 15:17 06/30/18 15:17 06/30/18 15:17 Intake and Output: 06/30/18 07/01/18 18:59 06:59 Output Total 300 Balance -300 - Medications Medications: Current Medications Amlodipine Besylate (Norvasc) 10 mg PO DAILY [facility] Last Admin: 06/30/18 10:47 Dose: 10 mg Carvedilol (Coreg) 6.25 mg PO BID [facility] Last Admin: 06/30/18 17:17 Dose: 6.25 mg Heparin Sodium (Porcine) (Heparin) 5,000 units SC Q12 [facility] Last Admin: 06/30/18 10:48 Dose: 5,000 units Piperacillin Sod/Tazobactam Sod (Zosyn 3.375 Gm Iv Premix) 3.375 gm in 50 mls @ 100 mls/hr IVPB Q6H [facility]; Protocol Last Admin: 06/30/18 17:17 Dose: 100 mls/hr Dextrose/Sodium Chloride (Dextrose 5%/0.9% Ns 1000 Ml) 1,000 mls @ 75 mls/hr IV .[id number] [facility] Last Admin: 06/30/18 06:45 Dose: 75 mls/hr Vancomycin/Sodium Chloride (Vancomycin 1 Gm/Ns 200 Ml) 1 gm in 200 mls @ 166.7 mls/hr IVPB Q24H [facility]; Protocol Stop: 07/01/18 15:31 Losartan Potassium (Cozaar) 25 mg PO DAILY [facility] Last Admin: 06/30/18 10:47 Dose: 25 mg Saccharomyces Boulardii (Florastor) 250 mg PO BID [facility] Last Admin: 06/30/18 10:48 Dose: 250 mg Vancomycin HCl (Vancocin 250mg Capsule) 250 mg PO QID [facility] Last Admin: 06/30/18 17:17 Dose: 250 mg - Labs Labs: 06/30/18 11:42 06/30/18 11:42 - Constitutional Appears: Well - Head Exam Head Exam: ATRAUMATIC, NORMAL INSPECTION, NORMOCEPHALIC - Eye Exam Eye Exam: EOMI, Normal appearance, PERRL Pupil Exam: NORMAL ACCOMODATION, PERRL - ENT Exam ENT Exam: Mucous Membranes Moist, Normal Exam - Neck Exam Neck Exam: Full ROM, Normal Inspection. absent: Lymphadenopathy - Respiratory Exam Respiratory Exam: Decreased Breath Sounds - Cardiovascular Exam Cardiovascular Exam: REGULAR RHYTHM, +S1, +S2 - GI/Abdominal Exam GI & Abdominal Exam: Soft, Diminished Bowel Sounds - Rectal Exam Rectal Exam: Deferred - Neurological Exam Neurological Exam: Oriented x3 Assessment and Plan - Assessment and Plan (Free Text) Plan: moderate complexity of care plan discussed with patient labs reviewed vitals reviewed medications reviewed coreg cozaar dextrose 5% florastor heparin norvasc vancocin vancomycin zosyn
[2018-07-01] MEDS: Piperacill/Tazo 3.375gm in Dex 3.375 GM/50 ML BAG IVPB SCH ×4 (00:10→18:10)
--- NOTE | 2018-07-01 07:26 | CP.PCM.PN ---
Subjective - Date & Time of Evaluation Date of Evaluation: 07/01/18 Time of Evaluation: 07:26 - Subjective Subjective: Progress note for Dr. Harjinder Post Patient was seen and examined at bedside in no acute distress. Patient's daughter also at bedside. Patient no longer nausea or vomiting and has tolerated her diet. No acute events overnight. Objective - Vital Signs/Intake and Output Vital Signs (last 24 hours): Temp Pulse Resp BP Pulse Ox 98.1 F 57 L 20 149/66 97 06/30/18 23:00 07/01/18 01:00 06/30/18 23:00 06/30/18 23:00 06/30/18 23:00 Intake and Output: 07/01/18 07/01/18 06:59 18:59 Output Total 570 Balance -570 - Medications Medications: Current Medications Amlodipine Besylate (Norvasc) 10 mg PO DAILY [facility] Last Admin: 06/30/18 10:47 Dose: 10 mg Carvedilol (Coreg) 6.25 mg PO BID [facility] Last Admin: 06/30/18 17:17 Dose: 6.25 mg Heparin Sodium (Porcine) (Heparin) 5,000 units SC Q12 [facility] Last Admin: 06/30/18 21:07 Dose: 5,000 units Piperacillin Sod/Tazobactam Sod (Zosyn 3.375 Gm Iv Premix) 3.375 gm in 50 mls @ 100 mls/hr IVPB Q6H [facility]; Protocol Last Admin: 07/01/18 05:41 Dose: 100 mls/hr Dextrose/Sodium Chloride (Dextrose 5%/0.9% Ns 1000 Ml) 1,000 mls @ 75 mls/hr IV .[id number] [facility] Last Admin: 06/30/18 21:06 Dose: 75 mls/hr Vancomycin/Sodium Chloride (Vancomycin 1 Gm/Ns 200 Ml) 1 gm in 200 mls @ 166.7 mls/hr IVPB Q24H [facility]; Protocol Stop: 07/01/18 15:31 Losartan Potassium (Cozaar) 25 mg PO DAILY [facility] Last Admin: 06/30/18 10:47 Dose: 25 mg Saccharomyces Boulardii (Florastor) 250 mg PO BID [facility] Last Admin: 06/30/18 21:06 Dose: 250 mg Vancomycin HCl (Vancocin 250mg Capsule) 250 mg PO QID [facility] Last Admin: 06/30/18 21:07 Dose: 250 mg - Labs Labs: 06/30/18 11:42 06/30/18 11:42 - Constitutional Appears: No Acute Distress - Head Exam Head Exam: ATRAUMATIC - Eye Exam Eye Exam: EOMI - ENT Exam ENT Exam: Mucous Membranes Moist - Respiratory Exam Respiratory Exam: Clear to Ausculation Bilateral, NORMAL BREATHING PATTERN. absent: Rhonchi, Wheezes, Respiratory Distress - Cardiovascular Exam Cardiovascular Exam: REGULAR RHYTHM, +S1, +S2 - GI/Abdominal Exam GI & Abdominal Exam: Soft, Normal Bowel Sounds. absent: Distended, Tenderness Additional comments: Tube in place - Extremities Exam Extremities Exam: Normal Inspection. absent: Pedal Edema, Tenderness - Neurological Exam Neurological Exam: Alert, Awake, Oriented x3 - Psychiatric Exam Psychiatric exam: Normal Affect, Normal Mood - Skin Skin Exam: Dry, Normal Color, Warm Assessment and Plan - Assessment and Plan (Free Text) Plan: 67 year old female with PMHx of CVA, hypertension, diabetes, hyperlipidemia, UTI, DORIS, and anemia presents with nausea and vomiting over the past week. Patient was recently seen at [facility] ED with acute cholecystitis. Percutaneous cholecystostomy drain placed into gallbladder by . Patient had a catheter placed on 06/04/18. Nausea/Vomiting - Resolved - Advanced diet to Regular 2g Na diet on 07/01/18 S/P Cholecystostomy Tube - Surgery consulted, Dr. Dorsey; help appreciated * No surgical intervention at this time; follow up as outpatient for possible cholecystectomy in 4/6 weeks - GI consulted, Dr. Castillo; help appreciated * continue supportive care, IV fluids, antiemetics * ordered infectious stool workup * Advance diet * No procedures at this time - Afebrile, no leukocytosis, lactate wnl - Blood cx: negative to date x2 - Abdomen/Pelvis CT: Persistent redemonstrated is in situ cholecystostomy tube; Gallbladder is physiologically distended with what appears represent some faint intraluminal calculi; Small amount of pericholecystic fluid; Diminished perihepatic ascites. - Medications: * Vancomycin 250mg PO QID, 1gm IV Q24h * Zosyn 3.375g IV Q6h * Florastor 250mg PO BID Hypertension - Continue home medications: Norvasc 10mg PO daily, Coreg 6.25mg PO BID, Cozar 25mg PO daily - Continue to monitor Diabetes Mellitus - A1c (06/03/18): 8.6 - ISS - Accuchecks, Hypoglycemia protocol DORIS - BUN/Cr at admission: 17/03.8 - Hx of CKD, GFR 26 - Consider holding losartan if continues to increase- will continue to monitor labs Chronic Kidney Disease - Likely secondary to HTN/DM - BUN/Cr at admission: 17/03.8 - GFR 26 Prophylactic measure - GI: Not indicated at this time - DVT: Heparin 5,000 units SC Q8H Case discussed with Dr. Harjinder Gordon
[2018-07-01] MEDS: Saccharomyces Boulardi 250 mg Cap PO SCH ×2 (09:46→18:11)
[2018-07-01] MEDS: Vancomycin Hydrochloride 250 mg Capsule (Oral) PO SCH ×4 (09:46→22:47)
--- NOTE | 2018-07-01 10:05 | CP.PCM.PN ---
<FredMargoth - Last Filed: 07/01/18 10:03> Subjective - Date & Time of Evaluation Date of Evaluation: 07/01/18 Time of Evaluation: 07:00 - Subjective Subjective: GI Fellow PGY5 Pt seen and examined overnight, pt with no issues overnight, no BM, tolerating diet. Denies abdominal pain, N/V. ROS: A 12pt ROS was negative except as above Objective - Vital Signs/Intake and Output Vital Signs (last 24 hours): Temp Pulse Resp BP Pulse Ox 98.6 F 69 20 150/70 96 07/01/18 07:00 07/01/18 07:00 07/01/18 07:00 07/01/18 07:00 07/01/18 07:00 Intake and Output: 07/01/18 07/01/18 06:59 18:59 Output Total 570 Balance -570 - Medications Medications: Current Medications Amlodipine Besylate (Norvasc) 10 mg PO DAILY [facility] Last Admin: 07/01/18 09:46 Dose: 10 mg Carvedilol (Coreg) 6.25 mg PO BID [facility] Last Admin: 07/01/18 09:46 Dose: 6.25 mg Heparin Sodium (Porcine) (Heparin) 5,000 units SC Q12 [facility] Last Admin: 07/01/18 09:46 Dose: 5,000 units Piperacillin Sod/Tazobactam Sod (Zosyn 3.375 Gm Iv Premix) 3.375 gm in 50 mls @ 100 mls/hr IVPB Q6H [facility]; Protocol Last Admin: 07/01/18 05:41 Dose: 100 mls/hr Dextrose/Sodium Chloride (Dextrose 5%/0.9% Ns 1000 Ml) 1,000 mls @ 75 mls/hr IV .[id number] [facility] Last Admin: 06/30/18 21:06 Dose: 75 mls/hr Vancomycin/Sodium Chloride (Vancomycin 1 Gm/Ns 200 Ml) 1 gm in 200 mls @ 166.7 mls/hr IVPB Q24H [facility]; Protocol Stop: 07/01/18 15:31 Losartan Potassium (Cozaar) 25 mg PO DAILY [facility] Last Admin: 07/01/18 09:46 Dose: 25 mg Saccharomyces Boulardii (Florastor) 250 mg PO BID [facility] Last Admin: 07/01/18 09:46 Dose: 250 mg Vancomycin HCl (Vancocin 250mg Capsule) 250 mg PO QID [facility] Last Admin: 07/01/18 09:46 Dose: 250 mg - Labs Labs: 06/30/18 11:42 06/30/18 11:42 - Constitutional Appears: Non-toxic, No Acute Distress - Head Exam Head Exam: ATRAUMATIC, NORMAL INSPECTION, NORMOCEPHALIC - Eye Exam Eye Exam: EOMI, Normal appearance, PERRL Pupil Exam: PERRL - ENT Exam ENT Exam: Mucous Membranes Dry - Neck Exam Neck Exam: Full ROM - Respiratory Exam Respiratory Exam: Clear to Ausculation Bilateral, NORMAL BREATHING PATTERN - Cardiovascular Exam Cardiovascular Exam: REGULAR RHYTHM, RRR, +S1, +S2 - GI/Abdominal Exam GI & Abdominal Exam: Soft, Normal Bowel Sounds. absent: Distended, Firm, Guarding, Tenderness Additional comments: CT tube - Extremities Exam Extremities Exam: Full ROM, Normal Inspection - Neurological Exam Neurological Exam: Alert, Awake, Oriented x3 Assessment and Plan - Assessment and Plan (Free Text) Assessment: 67yo F with PMHx of DM, HTN, CVA with c/o and recent cholecystostomy tube placement (06/04/18) for cholecystitis pw with N/V/D. Plan: -Continue supportive care with IVFs and anti-emetics - Abd US and CT Abd/Pelvis with no significant pathology, prior CT for cholecystitis and moderate liquid stool - CT tube draining bilious output, abdomen soft and non-tender; Low suspicion of GB source for current symptoms - Pt comfortable with no GI issues at this time - Will order infectious stool work up and r/o C diff, not collected since no BM overnight - Pt on multiple abx, should be narrowed will defer to primary team - Advance to regular diet - No plan for any procedures - Will continue to follow pt <Rigoberto Castillo - Last Filed: 07/01/18 10:51> Objective - Vital Signs/Intake and Output Vital Signs (last 24 hours): Temp Pulse Resp BP Pulse Ox 98.6 F 69 20 150/70 96 07/01/18 07:00 07/01/18 07:00 07/01/18 07:00 07/01/18 07:00 07/01/18 07:00 Intake and Output: 07/01/18 07/01/18 06:59 18:59 Output Total 570 Balance -570 - Medications Medications: Current Medications Amlodipine Besylate (Norvasc) 10 mg PO DAILY [facility] Last Admin: 07/01/18 09:46 Dose: 10 mg Carvedilol (Coreg) 6.25 mg PO BID [facility] Last Admin: 07/01/18 09:46 Dose: 6.25 mg Heparin Sodium (Porcine) (Heparin) 5,000 units SC Q12 [facility] Last Admin: 07/01/18 09:46 Dose: 5,000 units Piperacillin Sod/Tazobactam Sod (Zosyn 3.375 Gm Iv Premix) 3.375 gm in 50 mls @ 100 mls/hr IVPB Q6H [facility]; Protocol Last Admin: 07/01/18 05:41 Dose: 100 mls/hr Dextrose/Sodium Chloride (Dextrose 5%/0.9% Ns 1000 Ml) 1,000 mls @ 75 mls/hr IV .[id number] [facility] Last Admin: 06/30/18 21:06 Dose: 75 mls/hr Vancomycin/Sodium Chloride (Vancomycin 1 Gm/Ns 200 Ml) 1 gm in 200 mls @ 166.7 mls/hr IVPB Q24H [facility]; Protocol Stop: 07/01/18 15:31 Insulin Human Regular (Novolin R) 0 unit SC ACHS [facility]; Protocol Losartan Potassium (Cozaar) 25 mg PO DAILY [facility] Last Admin: 07/01/18 09:46 Dose: 25 mg Saccharomyces Boulardii (Florastor) 250 mg PO BID [facility] Last Admin: 07/01/18 09:46 Dose: 250 mg Vancomycin HCl (Vancocin 250mg Capsule) 250 mg PO QID [facility] Last Admin: 07/01/18 09:46 Dose: 250 mg - Labs Labs: 06/30/18 11:42 06/30/18 11:42 Attending/Attestation - Attestation I have personally seen and examined this patient.: Yes I have fully participated in the care of the patient.: Yes I have reviewed all pertinent clinical information, including history, physical exam and plan: Yes Notes (Text): 07/01/18 10:47 I have seen and examined patient with GI fellow. No acute events overnight, she is seen resting in bed comfortably. She denies abdominal pain, nausea, vomiting, fever/chills. Tolerating PO liquids without difficulty. Review of vitals from today are normal. DM/HTN CVA Cholecystitis s/p PTC drain Nausea, vomiting - resolved - Advance diet as tolerated - Continue with antibiotic therapy as per ID - Follow up surgical recommendations regarding timing of cholecystectomy - LFTs stable, continue to monitor - No further planned GI interventions at this time, will sign off case. Please reconsult as necessary, thank you.
[2018-07-01] MEDS: Dextrose 5%/0.9% NS 1,000 ML IV SCH ×3 (11:55→22:44)
[2018-07-01] MEDS: (Novolin R) Insulin Human Regular 100 units/ml vial SC SCH ×3 (13:16→22:44)
[2018-07-01 13:27] LABS: SQUAMOUS EPITHIAL 1 /hpf (0-5); URINE BACTERIA RARE (<OCC); URINE BILIRUBIN NEGATIVE (NEGATIVE); URINE BLOOD 1+ (NEGATIVE); URINE CLARITY Hazy (Clear); URINE COLOR Yellow (YELLOW); URINE GLUCOSE (UA) NORMAL (Normal); URINE LEUKOCYTE ESTERASE 3+ Leu/uL (Negative); URINE PROTEIN NEGATIVE (NEGATIVE); URINE UROBILINOGEN NORMAL mg/dL (0.2-1.0)
[2018-07-01] MEDS ORDERED: Vancomycin 1 gm/NS 200 ml 1 GM/200 ML BAG IVPB SCH (14:30)
--- NOTE | 2018-07-01 21:06 | CP.PCM.PN ---
Subjective - Date & Time of Evaluation Date of Evaluation: 07/01/18 Time of Evaluation: 09:55 - Subjective Subjective: patient examined today no nausea no vomiting no fever no dizziness no diarrhea no shortness of breath Objective - Vital Signs/Intake and Output Vital Signs (last 24 hours): Temp Pulse Resp BP Pulse Ox 98.2 F 63 18 137/62 94 L 07/01/18 15:20 07/01/18 15:20 07/01/18 15:20 07/01/18 15:20 07/01/18 15:20 Intake and Output: 07/01/18 07/02/18 18:59 06:59 Intake Total 525 Output Total 303 Balance 222 - Medications Medications: Current Medications Amlodipine Besylate (Norvasc) 10 mg PO DAILY [facility] Last Admin: 07/01/18 09:46 Dose: 10 mg Carvedilol (Coreg) 6.25 mg PO BID [facility] Last Admin: 07/01/18 18:11 Dose: 6.25 mg Heparin Sodium (Porcine) (Heparin) 5,000 units SC Q12 [facility] Last Admin: 07/01/18 09:46 Dose: 5,000 units Piperacillin Sod/Tazobactam Sod (Zosyn 3.375 Gm Iv Premix) 3.375 gm in 50 mls @ 100 mls/hr IVPB Q6H [facility]; Protocol Last Admin: 07/01/18 18:10 Dose: 100 mls/hr Dextrose/Sodium Chloride (Dextrose 5%/0.9% Ns 1000 Ml) 1,000 mls @ 75 mls/hr IV .[id number] [facility] Last Admin: 07/01/18 18:10 Dose: 75 mls/hr Insulin Human Regular (Novolin R) 0 unit SC ACHS [facility]; Protocol Last Admin: 07/01/18 17:30 Dose: 2 units Losartan Potassium (Cozaar) 25 mg PO DAILY [facility] Last Admin: 07/01/18 09:46 Dose: 25 mg Saccharomyces Boulardii (Florastor) 250 mg PO BID [facility] Last Admin: 07/01/18 18:11 Dose: 250 mg Vancomycin HCl (Vancocin 250mg Capsule) 250 mg PO QID [facility] Last Admin: 07/01/18 13:44 Dose: 250 mg - Labs Labs: 06/30/18 11:42 06/30/18 11:42 - Constitutional Appears: Well - Head Exam Head Exam: ATRAUMATIC, NORMAL INSPECTION, NORMOCEPHALIC - Eye Exam Eye Exam: EOMI, Normal appearance, PERRL Pupil Exam: NORMAL ACCOMODATION, PERRL - ENT Exam ENT Exam: Mucous Membranes Moist, Normal Exam - Neck Exam Neck Exam: Full ROM, Normal Inspection. absent: Lymphadenopathy - Respiratory Exam Respiratory Exam: Decreased Breath Sounds - Cardiovascular Exam Cardiovascular Exam: REGULAR RHYTHM, +S1, +S2 - GI/Abdominal Exam GI & Abdominal Exam: Soft, Diminished Bowel Sounds - Rectal Exam Rectal Exam: Deferred - Neurological Exam Neurological Exam: Oriented x3 Assessment and Plan - Assessment and Plan (Free Text) Plan: moderate complexity of care plan discussed with patient labs reviewed vitals reviewed medications reviewed coreg cozaar dextrose 5% florastor heparin norvasc vancocin vancomycin zosyn novolin R7 year old female with PMHx of CVA, hypertension, diabetes, hyperlipidemia, UTI, DORIS, and anemia presents with nausea and vomiting over the past week. Patient was recently seen at [facility] ED with acute cholecystitis. Percutaneous cholecystostomy drain placed into gallbladder by . Patient had a catheter placed on 06/04/18. Nausea/Vomiting - Resolved - Advanced diet to Regular 2g Na diet on 07/01/18 S/P Cholecystostomy Tube - Surgery consulted, Dr. Dorsey; help appreciated * No surgical intervention at this time; follow up as outpatient for possible cholecystectomy in 4/6 weeks - GI consulted, Dr. Castillo; help appreciated * continue supportive care, IV fluids, antiemetics * ordered infectious stool workup * Advance diet * No procedures at this time * sebastian po fluid - Afebrile, no leukocytosis, lactate wnl - Blood cx: negative to date x2 - Abdomen/Pelvis CT: Persistent redemonstrated is in situ cholecystostomy tube; Gallbladder is physiologically distended with what appears represent some faint intraluminal calculi; Small amount of pericholecystic fluid; Diminished perihepatic ascites. - Medications: * Vancomycin 250mg PO QID, 1gm IV Q24h * Zosyn 3.375g IV Q6h * Florastor 250mg PO BID * * i spoke to dr. dorsey today about case also * needs surg Hypertension - Continue home medications: Norvasc 10mg PO daily, Coreg 6.25mg PO BID, Cozar 25mg PO daily - Continue to monitor Diabetes Mellitus - A1c (06/03/18): 8.6 - ISS - Accuchecks, Hypoglycemia protocol DORIS - BUN/Cr at admission: 17/03.8 - Hx of CKD, GFR 26 - Consider holding losartan if continues to increase- will continue to monitor labs Chronic Kidney Disease - Likely secondary to HTN/DM - BUN/Cr at admission: 17/03.8 - GFR 26 Prophylactic measure - GI: Not indicated at this time - DVT: Heparin 5,000 units SC Q8H
[2018-07-02] MEDS: Piperacill/Tazo 3.375gm in Dex 3.375 GM/50 ML BAG IVPB SCH ×2 (01:00→05:33)
[2018-07-02 02:13] VITALS: RESP 20
--- NOTE | 2018-07-02 03:28 | CARD ---
APPROVED REPORT Date of service: 06/29/2018 EKG Measurement Heart [id number] <Conclusion> Normal sinus rhythm Nonspecific T wave abnormality Abnormal ECG
[2018-07-02] MEDS: (Novolin R) Insulin Human Regular 100 units/ml vial SC SCH ×4 (08:03→22:15)
--- NOTE | 2018-07-02 09:26 | CP.PCM.PN ---
<Elsa Gooden - Last Filed: 07/02/18 15:25> Subjective - Date & Time of Evaluation Date of Evaluation: 07/02/18 Time of Evaluation: : - Subjective Subjective: Progress note for Dr. Harjinder Post Patient was seen and examined at bedside in no acute distress. Patient reports feeling well and denies nausea, vomiting abdominal pain, fevers, chest pain, palpitations, dyspnea. She has tolerated her diet. No acute events overnight. Objective - Vital Signs/Intake and Output Vital Signs (last 24 hours): Temp Pulse Resp BP Pulse Ox 98.7 F 61 20 157/62 H 99 07/02/18 07:00 07/02/18 08:34 07/02/18 07:00 07/02/18 07:00 07/02/18 07:00 Intake and Output: 07/02/18 07/02/18 06:59 18:59 Intake Total 850 Output Total 510 Balance 340 - Medications Medications: Current Medications Amlodipine Besylate (Norvasc) 10 mg PO DAILY [facility]S [facility] 234 BEDS AT [facility] Last Admin: 07/01/18 09:46 Dose: 10 mg Carvedilol (Coreg) 6.25 mg PO BID COUNTS INCLUDE 234 BEDS AT THE [facility] Last Admin: 07/01/18 18:11 Dose: 6.25 mg Heparin Sodium (Porcine) (Heparin) 5,000 units SC Q12 COUNTS INCLUDE 234 BEDS AT THE [facility] Last Admin: 07/01/18 22:48 Dose: 5,000 units Piperacillin Sod/Tazobactam Sod (Zosyn 3.375 Gm Iv Premix) 3.375 gm in 50 mls @ 100 mls/hr IVPB Q6H COUNTS INCLUDE 234 BEDS AT THE [facility]; Protocol Last Admin: 07/02/18 05:33 Dose: 100 mls/hr Dextrose/Sodium Chloride (Dextrose 5%/0.9% Ns 1000 Ml) 1,000 mls @ 75 mls/hr IV .[id number] COUNTS INCLUDE 234 BEDS AT THE [facility] Last Admin: 07/01/18 22:44 Dose: Not Given Insulin Human Regular (Novolin R) 0 unit SC ACHS COUNTS INCLUDE 234 BEDS AT THE [facility]; Protocol Last Admin: 07/02/18 08:03 Dose: 2 units Losartan Potassium (Cozaar) 25 mg PO DAILY COUNTS INCLUDE 234 BEDS AT [facility] Last Admin: 07/01/18 09:46 Dose: 25 mg Saccharomyces Boulardii (Florastor) 250 mg PO BID COUNTS INCLUDE 234 BEDS AT THE [facility] Last Admin: 07/01/18 18:11 Dose: 250 mg Vancomycin HCl (Vancocin 250mg Capsule) 250 mg PO QID [facility] Last Admin: 07/01/18 22:47 Dose: 250 mg - Labs Labs: 06/30/18 11:42 06/30/18 11:42 - Additional Findings Additional findings: - Constitutional Appears: No Acute Distress - Head Exam Head Exam: ATRAUMATIC - Eye Exam Eye Exam: EOMI - ENT Exam ENT Exam: Mucous Membranes Moist - Respiratory Exam Respiratory Exam: Clear to Ausculation Bilateral, NORMAL BREATHING PATTERN. absent: Rhonchi, Wheezes, Respiratory Distress - Cardiovascular Exam Cardiovascular Exam: REGULAR RHYTHM, +S1, +S2 - GI/Abdominal Exam GI & Abdominal Exam: Soft, Normal Bowel Sounds. absent: Distended, Tenderness Additional comments: Tube in place - Extremities Exam Extremities Exam: Normal Inspection. absent: Pedal Edema, Tenderness - Neurological Exam Neurological Exam: Alert, Awake, Oriented x3 - Psychiatric Exam Psychiatric exam: Normal Affect, Normal Mood - Skin Skin Exam: Dry, Normal Color, Warm Assessment and Plan - Assessment and Plan (Free Text) Plan: 67 year old female with PMHx of CVA, hypertension, diabetes, hyperlipidemia, UTI, DORIS, and anemia presents with nausea and vomiting over the past week. Patient was recently seen at [facility] ED with acute cholecystitis. Percutaneous cholecystostomy drain placed into gallbladder by . Patient had a catheter placed on 06/04/18. Nausea/Vomiting - Resolved - Advanced diet as tolerated S/P Cholecystostomy Tube - Chlecystostomy tube place on 06/04/18 - Surgery consulted, Dr. Dorsey; help appreciated * No surgical intervention at this time; follow up as outpatient for possible cholecystectomy in 4-6 weeks - GI consulted, Dr. Castillo; help appreciated * continue supportive care, IV fluids, antiemetics; ordered infectious stool workup * Advance diet as tolerated * No procedures at this time - Afebrile, no leukocytosis, lactate wnl - Blood cx: negative to date x2 - Abdomen/Pelvis CT: Persistent redemonstrated is in situ cholecystostomy tube; Gallbladder is physiologically distended with what appears represent some faint intraluminal calculi; Small amount of pericholecystic fluid; Diminished perihepatic ascites. - Medications: * Vancomycin 250mg PO QID, 1gm IV Q24h * Zosyn 3.375g IV Q6h * Florastor 250mg PO BID Hypertension - Continue home medications: Norvasc 10mg PO daily, Coreg 6.25mg PO BID, Cozar 25mg PO daily - Continue to monitor Diabetes Mellitus - A1c (06/03/18): 8.6 - ISS - Accuchecks, Hypoglycemia protocol DORIS - BUN/Cr at admission: 17/03.8 - Hx of CKD, GFR 26 - Consider holding losartan if continues to increase- will continue to monitor labs Chronic Kidney Disease - Likely secondary to HTN/DM - BUN/Cr at admission: 17/03.8 - GFR 26 Prophylactic measure - GI: Not indicated at this time - DVT: Heparin 5,000 units SC Q8H - PT/OT eval - Case management referral for discharge planning [facility]: pending PT eval and case management for rehab placement. When discharged, patient will need to follow up with Dr. Dorsey within one week. Case discussed with Dr. Harjinder Gordon <Bernard Post - Last Filed: 07/02/18 23:08> Objective - Vital Signs/Intake and Output Vital Signs (last 24 hours): Temp Pulse Resp BP Pulse Ox 98.8 F 64 20 138/69 99 07/02/18 16:00 07/02/18 16:00 07/02/18 16:00 07/02/18 16:00 07/02/18 16:00 - Medications Medications: Current Medications Amlodipine Besylate (Norvasc) 10 mg PO DAILY COUNTS INCLUDE 234 BEDS AT THE [facility] Last Admin: 07/02/18 09:42 Dose: 10 mg Carvedilol (Coreg) 6.25 mg PO BID COUNTS INCLUDE 234 BEDS AT THE [facility] Last Admin: 07/02/18 17:55 Dose: 6.25 mg Heparin Sodium (Porcine) (Heparin) 5,000 units SC Q12 COUNTS INCLUDE 234 BEDS AT THE [facility] Last Admin: 07/02/18 22:33 Dose: 5,000 units Dextrose/Sodium Chloride (Dextrose 5%/0.9% Ns 1000 Ml) 1,000 mls @ 75 mls/hr IV .[id number] COUNTS INCLUDE 234 BEDS AT THE [facility] Last Admin: 07/02/18 11:32 Dose: Not Given Piperacillin Sod/Tazobactam Sod (Zosyn 2.25 Gm Iv Premix) 2.25 gm in 50 mls @ 100 mls/hr IVPB Q8H COUNTS INCLUDE 234 BEDS AT THE [facility]; Protocol Last Admin: 07/02/18 22:33 Dose: 100 mls/hr Insulin Human Regular (Novolin R) 0 unit SC ACHS COUNTS INCLUDE 234 BEDS AT THE [facility]; Protocol Last Admin: 07/02/18 22:15 Dose: Not Given Losartan Potassium (Cozaar) 25 mg PO DAILY COUNTS INCLUDE 234 BEDS AT [facility] Last Admin: 07/02/18 09:42 Dose: 25 mg Saccharomyces Boulardii (Florastor) 250 mg PO BID COUNTS INCLUDE 234 BEDS AT THE [facility] Last Admin: 07/02/18 17:55 Dose: 250 mg Vancomycin HCl (Vancocin 250mg Capsule) 250 mg PO QID COUNTS INCLUDE 234 BEDS AT THE [facility] Last Admin: 07/02/18 22:33 Dose: 250 mg - Labs Labs: 07/02/18 11:14 07/02/18 11:14 Attending/Attestation - Attestation I have personally seen and examined this patient.: Yes I have fully participated in the care of the patient.: Yes I have reviewed all pertinent clinical information, including history, physical exam and plan: Yes
[2018-07-02] MEDS: Saccharomyces Boulardi 250 mg Cap PO SCH ×2 (09:42→17:55)
[2018-07-02] MEDS: Vancomycin Hydrochloride 250 mg Capsule (Oral) PO SCH ×4 (09:46→22:33)
[2018-07-02 11:24] LABS: BASO # 0.1 K/uL (0.0-0.2); BASO % 0.7 % (0.0-2.0); EOS # 0.3 K/uL (0.0-0.7); EOS % 4.1 % (0.0-4.0); HEMOGLOBIN 10.1 g/dL (11.0-16.0); LYMPH # 1.4 K/uL (1.0-4.3); LYMPH % 18.8 % (20.0-40.0); MEAN CELL VOLUME 80.9 fL (81.0-99.0); MEAN CORPUSCULAR HGB CONC 32.1 g/dL (33.0-37.0); MEAN PLATELET VOLUME 9.4 fL (7.2-11.7); MONO # 0.6 K/uL (0.0-0.8); MONO % 7.5 % (0.0-10.0); NEUT # 5.3 K/uL (1.8-7.0); NEUT % 68.9 % (50.0-75.0); RBC 3.89 Mil/uL (3.80-5.20); RED CELL DISTRIBUTION WIDTH 16.6 % (11.5-14.5); WHITE BLOOD COUNT 7.7 K/uL (4.8-10.8)
[2018-07-02] MEDS: Dextrose 5%/0.9% NS 1,000 ML IV SCH (11:32)
[2018-07-02 12:02] LABS: ALB/GLOB RATIO 1.1 (1.0-2.1); ALBUMIN 3.5 g/dL (3.5-5.0); CALCIUM 8.4 mg/dl (8.6-10.4)
[2018-07-02] MEDS: Piperacill/Tazo 2.25gm in Dex 2.25 GM/50 ML BAG IVPB SCH ×2 (13:43→22:33)
--- NOTE | 2018-07-02 18:52 | CP.PCM.PN ---
Subjective - Date & Time of Evaluation Date of Evaluation: 07/02/18 Time of Evaluation: 10:20 - Subjective Subjective: patient examined today no nausea no vomiting no diarrhea no dizziness no fever no shortness of breath Patient was seen and examined at bedside in no acute distress. Patient reports feeling well and denies nausea, vomiting abdominal pain, fevers, chest pain, palpitations, dyspnea. She has tolerated her diet. No acute events overnight. Objective - Vital Signs/Intake and Output Vital Signs (last 24 hours): Temp Pulse Resp BP Pulse Ox 98.8 F 64 20 138/69 99 07/02/18 16:00 07/02/18 16:00 07/02/18 16:00 07/02/18 16:00 07/02/18 16:00 Intake and Output: 07/02/18 07/02/18 06:59 18:59 Intake Total 850 Output Total 510 Balance 340 - Medications Medications: Current Medications Amlodipine Besylate (Norvasc) 10 mg PO DAILY [facility] Last Admin: 07/02/18 09:42 Dose: 10 mg Carvedilol (Coreg) 6.25 mg PO BID [facility] Last Admin: 07/02/18 17:55 Dose: 6.25 mg Heparin Sodium (Porcine) (Heparin) 5,000 units SC Q12 [facility] Last Admin: 07/02/18 09:42 Dose: 5,000 units Dextrose/Sodium Chloride (Dextrose 5%/0.9% Ns 1000 Ml) 1,000 mls @ 75 mls/hr IV .[id number] [facility] Last Admin: 07/02/18 11:32 Dose: Not Given Piperacillin Sod/Tazobactam Sod (Zosyn 2.25 Gm Iv Premix) 2.25 gm in 50 mls @ 100 mls/hr IVPB Q8H [facility]; Protocol Last Admin: 07/02/18 13:43 Dose: 100 mls/hr Insulin Human Regular (Novolin R) 0 unit SC ACHS [facility]; Protocol Last Admin: 07/02/18 17:30 Dose: 2 units Losartan Potassium (Cozaar) 25 mg PO DAILY [facility] Last Admin: 07/02/18 09:42 Dose: 25 mg Saccharomyces Boulardii (Florastor) 250 mg PO BID [facility] Last Admin: 07/02/18 17:55 Dose: 250 mg Vancomycin HCl (Vancocin 250mg Capsule) 250 mg PO QID [facility] Last Admin: 07/02/18 17:55 Dose: 250 mg - Labs Labs: 07/02/18 11:14 07/02/18 11:14 - Constitutional Appears: Well - Head Exam Head Exam: ATRAUMATIC, NORMAL INSPECTION, NORMOCEPHALIC - Eye Exam Eye Exam: EOMI, Normal appearance, PERRL Pupil Exam: NORMAL ACCOMODATION, PERRL - ENT Exam ENT Exam: Mucous Membranes Moist, Normal Exam - Neck Exam Neck Exam: Full ROM, Normal Inspection. absent: Lymphadenopathy - Respiratory Exam Respiratory Exam: Decreased Breath Sounds - Cardiovascular Exam Cardiovascular Exam: REGULAR RHYTHM, +S1, +S2 - GI/Abdominal Exam GI & Abdominal Exam: Soft, Diminished Bowel Sounds - Rectal Exam Rectal Exam: Deferred - Neurological Exam Neurological Exam: Oriented x3 Assessment and Plan - Assessment and Plan (Free Text) Plan: coreg cozaar dextrose 5% florastor heparin norvasc vancocin vancomycin zosyn novolin R moderate complexity of care plan discussed with patient labs reviewed vitals reviewed medications reviewed Globin 10.4 Hemoglobin hematocrit 33.1 BUN 18 Creatinine 1.9 Sodium 148 Potassium 4.8 Surgery within 4 to 8 weeks Discharge planning Plan: 67 year old female with PMHx of CVA, hypertension, diabetes, hyperlipidemia, UTI, DORIS, and anemia presents with nausea and vomiting over the past week. Patient was recently seen at [facility] ED with acute cholecystitis. Percutaneous cholecystostomy drain placed into gallbladder by . Patient had a catheter placed on 06/04/18. Nausea/Vomiting - Resolved - Advanced diet as tolerated S/P Cholecystostomy Tube - Chlecystostomy tube place on 06/04/18 - Surgery consulted, Dr. Dorsey; help appreciated No surgical intervention at this time; follow up as outpatient for possible cholecystectomy in 4-6 weeks - GI consulted, Dr. Castillo; help appreciated continue supportive care, IV fluids, antiemetics; ordered infectious stool workup Advance diet as tolerated No procedures at this time - Afebrile, no leukocytosis, lactate wnl - Blood cx: negative to date x2 - Abdomen/Pelvis CT: Persistent redemonstrated is in situ cholecystostomy tube; Gallbladder is physiologically distended with what appears represent some faint intraluminal calculi; Small amount of pericholecystic fluid; Diminished perihepatic ascites. - Medications: Vancomycin 250mg PO QID, 1gm IV Q24h Zosyn 3.375g IV Q6h Florastor 250mg PO BID Hypertension - Continue home medications: Norvasc 10mg PO daily, Coreg 6.25mg PO BID, Cozar 25mg PO daily - Continue to monitor Diabetes Mellitus - A1c (06/03/18): 8.6 - ISS - Accuchecks, Hypoglycemia protocol DORIS - BUN/Cr at admission: 17/03.8 - Hx of CKD, GFR 26 - Consider holding losartan if continues to increase- will continue to monitor labs Chronic Kidney Disease - Likely secondary to HTN/DM - BUN/Cr at admission: 17/03.8 - GFR 26 Prophylactic measure - GI: Not indicated at this time - DVT: Heparin 5,000 units SC Q8H - PT/OT eval - Case management referral for discharge planning [facility]: pending PT eval and case management for rehab placement. When discharged, patient will need to follow up with Dr. Dorsey within one week.
[2018-07-03] MEDS: Piperacill/Tazo 2.25gm in Dex 2.25 GM/50 ML BAG IVPB SCH ×3 (05:08→21:21)
[2018-07-03 07:38] LABS: BASO # 0.1 K/uL (0.0-0.2); BASO % 0.9 % (0.0-2.0); EOS # 0.3 K/uL (0.0-0.7); EOS % 4.4 % (0.0-4.0); HEMOGLOBIN 10.3 g/dL (11.0-16.0); LYMPH # 1.6 K/uL (1.0-4.3); LYMPH % 21.2 % (20.0-40.0); MEAN CELL VOLUME 80.1 fL (81.0-99.0); MEAN CORPUSCULAR HEMOGLOBIN 25.7 pg (27.0-31.0); MEAN CORPUSCULAR HGB CONC 32.1 g/dL (33.0-37.0); MONO # 0.7 K/uL (0.0-0.8); MONO % 8.6 % (0.0-10.0); NEUT % 64.9 % (50.0-75.0); RBC 4.01 Mil/uL (3.80-5.20); RED CELL DISTRIBUTION WIDTH 16.3 % (11.5-14.5); WHITE BLOOD COUNT 7.6 K/uL (4.8-10.8)
--- NOTE | 2018-07-03 07:48 | CP.PCM.PN ---
<Saravanan Ricardo - Last Filed: 07/03/18 16:37> Subjective - Date & Time of Evaluation Date of Evaluation: 07/03/18 Time of Evaluation: 07:47 - Subjective Subjective: Progress note for Dr. Deepak Post Patient was seen and examined at bedside in no acute distress. Patient reports feeling better than yesterday. Patient denies any fevers, chills, headaches, chest pain, abdominal pain, dizziness, or any other complaints. Objective - Vital Signs/Intake and Output Vital Signs (last 24 hours): Temp Pulse Resp BP Pulse Ox 98.2 F 57 L 20 126/62 95 07/03/18 00:00 07/03/18 00:00 07/03/18 00:00 07/03/18 00:00 07/03/18 00:00 Intake and Output: 07/03/18 07/03/18 06:59 18:59 Intake Total 800 Output Total 115 Balance 685 - Medications Medications: Current Medications Amlodipine Besylate (Norvasc) 10 mg PO DAILY [facility] Last Admin: 07/02/18 09:42 Dose: 10 mg Carvedilol (Coreg) 6.25 mg PO BID [facility] Last Admin: 07/02/18 17:55 Dose: 6.25 mg Heparin Sodium (Porcine) (Heparin) 5,000 units SC Q12 [facility] Last Admin: 07/02/18 22:33 Dose: 5,000 units Dextrose/Sodium Chloride (Dextrose 5%/0.9% Ns 1000 Ml) 1,000 mls @ 75 mls/hr IV .[id number] [facility] Last Admin: 07/02/18 11:32 Dose: Not Given Piperacillin Sod/Tazobactam Sod (Zosyn 2.25 Gm Iv Premix) 2.25 gm in 50 mls @ 100 mls/hr IVPB Q8H [facility]; Protocol Last Admin: 07/03/18 05:08 Dose: 100 mls/hr Insulin Human Regular (Novolin R) 0 unit SC ACHS [facility]; Protocol Last Admin: 07/02/18 22:15 Dose: Not Given Losartan Potassium (Cozaar) 25 mg PO DAILY [facility] Last Admin: 07/02/18 09:42 Dose: 25 mg Saccharomyces Boulardii (Florastor) 250 mg PO BID [facility] Last Admin: 07/02/18 17:55 Dose: 250 mg Vancomycin HCl (Vancocin 250mg Capsule) 250 mg PO QID [facility] Last Admin: 07/02/18 22:33 Dose: 250 mg - Labs Labs: 07/03/18 07:30 07/02/18 11:14 - Head Exam Head Exam: ATRAUMATIC, NORMAL INSPECTION - Eye Exam Eye Exam: EOMI, Normal appearance, PERRL Pupil Exam: NORMAL ACCOMODATION, PERRL. absent: Irregular, Unequal - ENT Exam ENT Exam: Mucous Membranes Moist, Normal Oropharynx - Respiratory Exam Respiratory Exam: Clear to Ausculation Bilateral, NORMAL BREATHING PATTERN. absent: Respiratory Distress - Cardiovascular Exam Cardiovascular Exam: REGULAR RHYTHM, +S1, +S2 - GI/Abdominal Exam GI & Abdominal Exam: Soft, Normal Bowel Sounds. absent: Rigid, Hyperactive Bowel Sounds - Extremities Exam Extremities Exam: Full ROM, Normal Inspection. absent: Joint Swelling, Pedal Edema - Neurological Exam Neurological Exam: Alert, Awake, CN II-XII Intact, Oriented x3 - Psychiatric Exam Psychiatric exam: Normal Affect, Normal Mood. absent: Depressed - Skin Skin Exam: Dry, Intact, Normal Color. absent: Diaphoretic, Pallor Assessment and Plan - Assessment and Plan (Free Text) Plan: 67 year old female with PMHx of CVA, hypertension, diabetes, hyperlipidemia, UTI, DORIS, and anemia presents with nausea and vomiting over the past week. Patient was recently seen at [facility] ED with acute cholecystitis. Percutaneous cholecystostomy drain placed into gallbladder by . Patient had a catheter placed on 06/04/18. Nausea/Vomiting - Resolved - Advanced diet as tolerated S/P Cholecystostomy Tube - Chlecystostomy tube place on 06/04/18 - Surgery consulted, Dr. Dorsey; help appreciated No surgical intervention at this time; follow up as outpatient for possible cholecystectomy in 4-6 weeks - GI consulted, Dr. Castillo; help appreciated continue supportive care, IV fluids, antiemetics; ordered infectious stool workup Advance diet as tolerated No procedures at this time - Afebrile, no leukocytosis, lactate wnl - Blood cx: negative to date x2 - Abdomen/Pelvis CT: Persistent redemonstrated is in situ cholecystostomy tube; Gallbladder is physiologically distended with what appears represent some faint intraluminal calculi; Small amount of pericholecystic fluid; Diminished perihepatic ascites. - Medications: Vancomycin 250mg PO QID, 1gm IV Q24h Zosyn 3.375g IV Q6h Florastor 250mg PO BID Hypertension - Continue home medications: Norvasc 10mg PO daily, Coreg 6.25mg PO BID, Cozar 25mg PO daily - Continue to monitor Diabetes Mellitus - A1c (06/03/18): 8.6 - ISS - Accuchecks, Hypoglycemia protocol DORIS - BUN/Cr at admission: 17/03.8 - Hx of CKD, GFR 26 - Consider holding losartan if continues to increase- will continue to monitor labs Chronic Kidney Disease - Likely secondary to HTN/DM - BUN/Cr at admission: 17/03.8 - GFR 26 Prophylactic measure - GI: Not indicated at this time - DVT: Heparin 5,000 units SC Q8H - PT/OT eval - Case management referral for discharge planning [facility]: PT recommending [facility] pending approval. case management for rehab placement. When discharged, patient will need to follow up with Dr. Dorsey within one week. Case discussed with Dr. Harjinder Post <Bernard Post - Last Filed: 07/07/18 14:40> Objective - Vital Signs/Intake and Output Vital Signs (last 24 hours): Temp Pulse Resp BP Pulse Ox 98.3 F 74 20 136/64 97 07/04/18 14:38 07/04/18 14:38 07/04/18 14:38 07/04/18 14:38 07/04/18 14:38 - Labs Labs: 07/03/18 07:30 07/03/18 07:30 Attending/Attestation - Attestation I have personally seen and examined this patient.: Yes I have fully participated in the care of the patient.: Yes I have reviewed all pertinent clinical information, including history, physical exam and plan: Yes Notes (Text): 07/07/18 14:40 agree iwzohreh reyes in on eweek
[2018-07-03 07:52] LABS: ALB/GLOB RATIO 0.9 (1.0-2.1); ALBUMIN 3.1 g/dL (3.5-5.0); CALCIUM 7.9 mg/dl (8.6-10.4)
[2018-07-03] MEDS: (Novolin R) Insulin Human Regular 100 units/ml vial SC SCH ×4 (08:33→21:22)
[2018-07-03] MEDS: Saccharomyces Boulardi 250 mg Cap PO SCH ×2 (10:19→18:16)
[2018-07-03] MEDS: Vancomycin Hydrochloride 250 mg Capsule (Oral) PO SCH ×4 (10:21→21:21)
[2018-07-03] MEDS: Dextrose 5%/0.9% NS 1,000 ML IV SCH ×2 (14:50→18:17)
--- NOTE | 2018-07-03 16:36 | CP.PCM.PCO ---
Physician Communication Note - Physician Communication Note Physician Communication Note: discharged to [facility] today, no need for abx as per DR Alanis
--- NOTE | 2018-07-03 20:09 | CP.PCM.PN ---
Subjective - Date & Time of Evaluation Date of Evaluation: 07/03/18 Time of Evaluation: 08:55 - Subjective Subjective: patient exmained today no nausea no vomiting no dizziness no diarrhea no fever no shortness of breath Objective - Vital Signs/Intake and Output Vital Signs (last 24 hours): Temp Pulse Resp BP Pulse Ox 98.1 F 59 L 20 153/62 H 95 07/03/18 16:00 07/03/18 16:00 07/03/18 16:00 07/03/18 16:00 07/03/18 16:00 - Medications Medications: Current Medications Amlodipine Besylate (Norvasc) 10 mg PO DAILY [facility] Last Admin: 07/03/18 10:20 Dose: 10 mg Carvedilol (Coreg) 6.25 mg PO BID [facility] Last Admin: 07/03/18 18:16 Dose: 6.25 mg Dextrose/Sodium Chloride (Dextrose 5%/0.9% Ns 1000 Ml) 1,000 mls @ 75 mls/hr IV .[id number] [facility] Last Admin: 07/03/18 18:17 Dose: 75 mls/hr Piperacillin Sod/Tazobactam Sod (Zosyn 2.25 Gm Iv Premix) 2.25 gm in 50 mls @ 100 mls/hr IVPB Q8H [facility]; Protocol Last Admin: 07/03/18 14:36 Dose: 100 mls/hr Insulin Human Regular (Novolin R) 0 unit SC ACHS [facility]; Protocol Last Admin: 07/03/18 17:30 Dose: Not Given Losartan Potassium (Cozaar) 25 mg PO DAILY [facility] Last Admin: 07/03/18 10:20 Dose: 25 mg Saccharomyces Boulardii (Florastor) 250 mg PO BID [facility] Last Admin: 07/03/18 18:16 Dose: 250 mg Vancomycin HCl (Vancocin 250mg Capsule) 250 mg PO QID [facility] Last Admin: 07/03/18 18:00 Dose: 250 mg - Labs Labs: 07/03/18 07:30 07/03/18 07:30 - Constitutional Appears: Well - Head Exam Head Exam: ATRAUMATIC, NORMAL INSPECTION, NORMOCEPHALIC - Eye Exam Eye Exam: EOMI, Normal appearance, PERRL Pupil Exam: NORMAL ACCOMODATION, PERRL - ENT Exam ENT Exam: Mucous Membranes Moist, Normal Exam - Neck Exam Neck Exam: Full ROM, Normal Inspection. absent: Lymphadenopathy - Respiratory Exam Respiratory Exam: Decreased Breath Sounds - Cardiovascular Exam Cardiovascular Exam: REGULAR RHYTHM, +S1, +S2 - GI/Abdominal Exam GI & Abdominal Exam: Soft, Diminished Bowel Sounds Additional comments: drainage bag from gb still present - Rectal Exam Rectal Exam: Deferred - Neurological Exam Neurological Exam: Oriented x3 Assessment and Plan (1) DORIS (acute kidney injury) Status: Acute (2) Abdominal pain Status: Acute (3) Anemia Status: Acute (4) CVA, old, dysarthria Status: Acute (5) Cholangitis Status: Acute (6) Cholecystitis Status: Acute (7) Contusion Status: Acute (8) Diabetes mellitus Status: Acute (9) Hyperglycemia Status: Acute (10) Ischemic stroke Status: Acute (11) Leukocytosis Status: Acute (12) Nausea Status: Acute (13) Pleural effusion Status: Acute (14) Positive urinary cytology Status: Acute (15) Prophylactic measure Status: Acute (16) Slurring of speech Status: Acute (17) Toothache Status: Acute (18) UTI (urinary tract infection) Status: Acute (19) Uncontrolled hypertension Status: Acute (20) Vomiting Status: Acute (21) Diabetes mellitus Status: Chronic (22) Hyperlipidemia Status: Chronic (23) Hypertension Status: Chronic - Assessment and Plan (Free Text) Plan: coreg cozaar dextrose 5% florastor heparin norvasc vancocin vancomycin zosyn novolin R moderate complexity of care plan discussed with patient labs reviewed vitals reviewed medications reviewed
[2018-07-04] MEDS: Dextrose 5%/0.9% NS 1,000 ML IV SCH (01:15)
[2018-07-04] MEDS: Piperacill/Tazo 2.25gm in Dex 2.25 GM/50 ML BAG IVPB SCH ×2 (05:43→13:43)
[2018-07-04] MEDS: (Novolin R) Insulin Human Regular 100 units/ml vial SC SCH ×2 (07:45→11:58)
[2018-07-04] MEDS: Saccharomyces Boulardi 250 mg Cap PO SCH (09:12)
[2018-07-04 09:13] VITALS: O2SAT 97
[2018-07-04] MEDS: Vancomycin Hydrochloride 250 mg Capsule (Oral) PO SCH ×2 (09:13→13:43)
[2018-07-04 14:38] VITALS: BP 136/64; PULSE 74; TEMP 98.3
--- NOTE | 2018-07-05 18:16 | CP.PCM.DIS ---
Provider - Provider Date of Admission: 06/29/18 16:42 Attending physician: Gabriela Post MD Consults: 06/29/18 20:50 Physician Consult Routine Comment: Consulting Provider: Anatoly Ventura Consulting Physician: Anatoly Ventura Reason for Consult: cholecystitis 06/29/18 20:51 Physician Consult Routine Comment: Consulting Provider: Ramon Alanis Consulting Physician: Ramon Alanis Reason for Consult: foot infection 06/29/18 23:31 Social Work Referral Routine Comment: protocol Physician Instructions: protocol Reason For Exam: britt 11 06/30/18 16:35 Nursing Referral for Wound Care Routine Comment: Physician Instructions: Reason For Exam: none ambulatory 07/02/18 15:24 Case Management Referral Routine Comment: Physician Instructions: Reason For Exam: [facility] Reason for Referral: Discharge Planning Time Spent in preparation of Discharge (in minutes): 25 Hospital Course - Lab Results Lab Results: Micro Results 06/29/18 11:07 Blood Blood Culture - Final NO GROWTH AFTER 5 DAYS 06/29/18 11:07 Blood Gram Stain - Final TEST NOT PERFORMED 06/30/18 01:49 Blood-Venous Blood Culture - Final NO GROWTH AFTER 5 DAYS 06/30/18 01:49 Blood-Venous Gram Stain - Final TEST NOT PERFORMED 06/29/18 23:35 Blood Blood Culture - Final NO GROWTH AFTER 5 DAYS 06/29/18 23:35 Blood Gram Stain - Final TEST NOT PERFORMED Most Recent Lab Values WBC 7.6 K/uL (4.8-10.8) 07/03/18 07:30 RBC 4.01 Mil/uL (3.80-5.20) 07/03/18 07:30 Hgb 10.3 g/dL (11.0-16.0) L 07/03/18 07:30 Hct 32.1 % (34.0-47.0) L 07/03/18 07:30 MCV 80.1 fL (81.0-99.0) L 07/03/18 07:30 MCH 25.7 pg (27.0-31.0) L 07/03/18 07:30 MCHC 32.1 g/dL (33.0-37.0) L 07/03/18 07:30 RDW 16.3 % (11.5-14.5) H 07/03/18 07:30 Plt Count 326 K/uL (130-400) 07/03/18 07:30 MPV 9.0 fL (7.2-11.7) 07/03/18 07:30 Neut % (Auto) 64.9 % (50.0-75.0) 07/03/18 07:30 Lymph % (Auto) 21.2 % (20.0-40.0) 07/03/18 07:30 [place] % (Auto) 8.6 % (0.0-10.0) 07/03/18 07:30 Eos % (Auto) 4.4 % (0.0-4.0) H 07/03/18 07:30 Baso % (Auto) 0.9 % (0.0-2.0) 07/03/18 07:30 Neut # (Auto) 5.0 K/uL (1.8-7.0) 07/03/18 07:30 Lymph # (Auto) 1.6 K/uL (1.0-4.3) 07/03/18 07:30 [place] # (Auto) 0.7 K/uL (0.0-0.8) 07/03/18 07:30 Eos # (Auto) 0.3 K/uL (0.0-0.7) 07/03/18 07:30 Baso # (Auto) 0.1 K/uL (0.0-0.2) 07/03/18 07:30 pO2 25 mm/Hg (30-55) L 06/29/18 16:55 VBG pH 7.38 (7.32-7.43) 06/29/18 16:55 VBG pCO2 45 mmHg (40-60) 06/29/18 16:55 VBG HCO3 24.2 mmol/L 06/29/18 16:55 VBG Total CO2 28.0 mmol/L (22-28) 06/29/18 16:55 VBG O2 Sat (Calc) 39.5 % (40-65) L 06/29/18 16:55 VBG Base Excess 1.0 mmol/L (0.0-2.0) 06/29/18 16:55 VBG Potassium 4.1 mmol/L (3.6-5.2) 06/29/18 16:55 Sodium 146.0 mmol/l (132-148) 06/29/18 16:55 Chloride 109.0 mmol/L (98-107) H 06/29/18 16:55 Glucose 173 mg/dl (65-105) H 06/29/18 16:55 Lactate 1.5 mmol/L (0.7-2.1) 06/29/18 16:55 Sodium 144 mmol/L (132-148) 07/03/18 07:30 Potassium 3.6 mmol/L (3.6-5.2) 07/03/18 07:30 Chloride 109 mmol/L (98-107) H 07/03/18 07:30 Carbon Dioxide 23 mmol/L (22-30) 07/03/18 07:30 Anion Gap 15 (10-20) 07/03/18 07:30 BUN 6 mg/dL (7-17) L 07/03/18 07:30 Creatinine 1.4 mg/dL (0.7-1.2) H 07/03/18 07:30 Est GFR ( Amer) 45 07/03/18 07:30 Est GFR (Non-Af Amer) 37 07/03/18 07:30 POC Glucose (mg/dL) 135 mg/dL (65-110) H 07/04/18 11:37 Random Glucose 152 mg/dL (65-105) H D 07/03/18 07:30 Calcium 7.9 mg/dl (8.6-10.4) L 07/03/18 07:30 Phosphorus 2.4 mg/dL (2.5-4.5) L 07/02/18 11:14 Magnesium 1.6 mg/dL (1.6-2.3) 07/02/18 11:14 Total Bilirubin 0.5 mg/dL (0.2-1.3) 07/03/18 07:30 AST 28 U/L (14-36) 07/03/18 07:30 ALT 13 U/L (9-52) 07/03/18 07:30 Alkaline Phosphatase 100 U/L (38-126) 07/03/18 07:30 Total Protein 6.6 g/dL (6.3-8.3) 07/03/18 07:30 Albumin 3.1 g/dL (3.5-5.0) L 07/03/18 07:30 Globulin 3.5 gm/dL (2.2-3.9) 07/03/18 07:30 Albumin/Globulin Ratio 0.9 (1.0-2.1) L 07/03/18 07:30 Lipase 24 U/L (23-300) 06/29/18 13:57 Venous Blood Potassium 4.1 mmol/L (3.6-5.2) 06/29/18 16:55 Urine Color Yellow (YELLOW) 07/01/18 13:12 Urine Clarity Hazy (Clear) 07/01/18 13:12 Urine pH 5.0 (5.0-8.0) 07/01/18 13:12 Ur Specific [place] 1.015 (1.003-1.030) 07/01/18 13:12 Urine Protein Negative mg/dL (NEGATIVE) 07/01/18 13:12 Urine Glucose (UA) Normal mg/dL (Normal) 07/01/18 13:12 Urine Ketones Negative mg/dL (NEGATIVE) 07/01/18 13:12 Urine Blood 1+ (NEGATIVE) H 07/01/18 13:12 Urine Nitrate Negative (NEGATIVE) 07/01/18 13:12 Urine Bilirubin Negative (NEGATIVE) 07/01/18 13:12 Urine Urobilinogen Normal mg/dL (0.2-1.0) 07/01/18 13:12 Ur Leukocyte Esterase 3+ Franck/uL (Negative) H 07/01/18 13:12 Urine WBC (Auto) 23 /hpf (0-5) H 07/01/18 13:12 Urine RBC (Auto) 10 /hpf (0-3) H 07/01/18 13:12 Ur Squamous Epith Cells 1 /hpf (0-5) 07/01/18 13:12 Urine Bacteria Rare (<OCC) 07/01/18 13:12 Urine Yeast (Budding) Many /hpf (NEGATIVE) H 07/01/18 13:12 - Hospital Course Hospital Course: coreg cozaar dextrose 5% florastor heparin norvasc vancocin vancomycin zosyn novolin R moderate to severe complexity of care plan discussed with patient labs reviewed vitals reviewed medications reviewed 67 year old female with PMHx of CVA, hypertension, diabetes, hyperlipidemia, UTI, DORIS, and anemia presents with nausea and vomiting over the past week. Patient was recently seen at [facility] ED with acute cholecystitis. Percutaneous cholecystostomy drain placed into gallbladder by . Patient had a catheter placed on 06/04/18. Nausea/Vomiting - Resolved - Advanced diet as tolerated S/P Cholecystostomy Tube - Chlecystostomy tube place on 06/04/18 - Surgery consulted, Dr. Ventura; help appreciated No surgical intervention at this time; follow up as outpatient for possible cholecystectomy in 4-6 weeks - GI consulted, Dr. Castillo; help appreciated continue supportive care, IV fluids, antiemetics; ordered infectious stool workup Advance diet as tolerated No procedures at this time - Afebrile, no leukocytosis, lactate wnl - Blood cx: negative to date x2 - Abdomen/Pelvis CT: Persistent redemonstrated is in situ cholecystostomy tube; Gallbladder is physiologically distended with what appears represent some faint intraluminal calculi; Small amount of pericholecystic fluid; Diminished perihepatic ascites. - Medications: Vancomycin 250mg PO QID, 1gm IV Q24h Zosyn 3.375g IV Q6h Florastor 250mg PO BID Hypertension - Continue home medications: Norvasc 10mg PO daily, Coreg 6.25mg PO BID, Cozar 25mg PO daily - Continue to monitor Diabetes Mellitus - A1c (06/03/18): 8.6 - ISS - Accuchecks, Hypoglycemia protocol DORIS - BUN/Cr at admission: 17/03.8 - Hx of CKD, GFR 26 - Consider holding losartan if continues to increase- will continue to monitor labs Chronic Kidney Disease - Likely secondary to HTN/DM - BUN/Cr at admission: 17/03.8 - GFR 26 Prophylactic measure - GI: Not indicated at this time - DVT: Heparin 5,000 units SC Q8H - PT/OT eval - Case management referral for discharge planning to [facility] Dispo: PT recommending [facility] pending approval. case management for rehab placement. When discharged, patient will need to follow up with Dr. Ventura within one week. renitao called dr. ventura and spoke to him for surg removal of both drainage and gallbaldder in few weeks 4 to [address] ventura will see pt on one week Discharge Exam - Head Exam Head Exam: ATRAUMATIC, NORMAL INSPECTION, NORMOCEPHALIC - Eye Exam Eye Exam: EOMI, Normal appearance, PERRL Pupil Exam: NORMAL ACCOMODATION, PERRL - Neck Exam Neck exam: Full Rom - Cardiovascular Exam Cardiovascular Exam: REGULAR RHYTHM, +S1, +S2 - GI/Abdominal Exam GI & Abdominal Exam: Bruit, Diminished Bowel Sounds, Soft - Rectal Exam Rectal Exam: Deferred - Neurological Exam Neurological exam: Oriented x3 Discharge Plan - Follow Up Plan Condition: STABLE Disposition: TRANSF TO SNF Instructions: Heart Healthy Diet, Urinary Tract Infection, Adult (DC), Nausea and Vomiting, Adult (DC), Gallstones (DC) Additional Instructions: Patient has kleber tube, skin care & I&O's to be recorded. Patient referred to [facility] at [place]. Please call , Dr Deepak Post, upon arrival. Referrals: Bernard Post MD [Staff Provider] -
== END 2018-07-04 14:42 | DRG 445 ==
LOC: C.ER 12:53 → C.9E 16:42 → C.6T 19:42
PROVIDERS: ADMIT Internal Medicine Nephrology; ATTEND Internal Medicine Nephrology
DX: K80.00 Calculus of gallbladder with acute cholecystitis without obstruction (principal); N39.0 Urinary tract infection, site not specified; N17.9 Acute kidney failure, unspecified; E78.00 Pure hypercholesterolemia, unspecified; E78.5 Hyperlipidemia, unspecified; I12.9 Hypertensive chronic kidney disease with stage 1 through stage 4 chronic kidney disease, or unspecified chronic kidney disease; N18.9 Chronic kidney disease, unspecified; E11.22 Type 2 diabetes mellitus with diabetic chronic kidney disease; Z86.73 Personal history of transient ischemic attack (TIA), and cerebral infarction without residual deficits; Z97.0 Presence of artificial eye; E11.65 Type 2 diabetes mellitus with hyperglycemia; R47.1 Dysarthria and anarthria

== ENCOUNTER 2018-07-21 18:08 | Inpatient (IN) | payer MEDICARE, MEDICAID ==
[2018-07-21 18:09] VITALS: BMI 23.6
--- NOTE | 2018-07-21 18:38 | C.PDOC ---
History Of Present Illness 67 yr old male w/ hx of Anemia, CVA, Diabetes, HTN, Hypercholesterolemia, cholecystitis w/ cholecysostomy tube (06/04/18) presents from [facility] for Choley tube removal. Per RN at [facility] pt was supposed to have tube in place until august 17. Pt denies any abdominal pain at this time. No n/v or chest pain or sob. Per RN she removed tube because it was itchy. No dark or bloody stool, and pt was otherwise acting normally at [facility]. No other complaints IR: Dr. Johnson PMD: Dr. Deepak anne Time Seen by Provider: 07/21/18 18:35 Chief Complaint (Nursing): Medical Clearance Past Medical History - Medical History PMH: Anemia, CVA, Diabetes, HTN, Hypercholesterolemia Denies: HIV, Chronic Kidney Disease Surgical History: Appendectomy - [facility] Procedures DRAINAGE OF GALLBLADDER WITH DRAINAGE DEVICE, PERC APPROACH (05/30/18) EXERCISE TREATMENT OF MUSCULOSK WHOLE USING ASSIST EQUIPMENT (10/14/16) HOME MANAGEMENT TREATMENT USING ASSIST EQUIPMENT (10/14/16) MOTOR SPEECH TREATMENT (10/14/16) Family History: States: Unknown Family Hx - Social History Hx Alcohol Use: No Hx Substance Use: No - Immunization History Hx Tetanus Toxoid Vaccination: Yes Hx Influenza Vaccination: No Hx Pneumococcal Vaccination: No Review Of Systems Constitutional: Negative for: Fever, Chills, Sweats, Weakness, Malaise Eyes: Negative for: Pain, Vision Change ENT: Negative for: Ear Pain, Ear Discharge, Nose Pain, Nose Discharge, Nose Congestion, Mouth Pain, Mouth Swelling Cardiovascular: Negative for: Chest Pain, Palpitations, Orthopnea Respiratory: Negative for: Cough, Shortness of Breath Gastrointestinal: Negative for: Nausea, Vomiting, Abdominal Pain, Diarrhea, Constipation, Melena, Hematemesis Genitourinary: Negative for: Dysuria, Frequency, Incontinence, Hematuria Musculoskeletal: Negative for: Neck Pain, Shoulder Pain, Arm Pain, Back Pain, Hand Pain, Leg Pain Skin: Negative for: Rash, Lesions Neurological: Negative for: Weakness, Numbness, Incoordination, Change in Speech Psych: Negative for: Anxiety Physical Exam - Physical Exam Appears: Well, Non-toxic, No Acute Distress Skin: Normal Color, Warm, Dry Head: Atraumatic, Normacephalic Eye(s): bilateral: Normal Inspection, PERRL, EOMI Nose: Normal Throat: Normal Neck: Normal, Supple, Other (no meningeal signs) Cardiovascular: Rhythm Regular, No Murmur, No JVD Respiratory: Normal Breath Sounds, No Decreased Breath Sounds, No Accessory Muscle Use, No Stridor, No Wheezing, No Plerual Rub Gastrointestinal/Abdominal: Soft, No Tenderness, No Organomegaly, No Mass, No Distention, No Guarding, No Rebound, No Hernia, Other (previous choleyctostomy tube site non cellulitic, no erythema or crepitus to site) Back: Normal Inspection, No CVA Tenderness, No Vertebral Tenderness Extremity: Normal ROM, No Tenderness, No Pedal Edema Neurological/Psych: Oriented x3, Normal Speech, Normal Cognition ED Course And Treatment - Laboratory Results Result Diagrams: 07/22/18 06:49 07/22/18 06:49 Medical Decision Making Medical Decision Makin yr old F w/ hx of CVA p/w choley tube removal. No signs of infx at site. No trauma or fall. No other physical complaints. 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 2040 labs reviewed, largely unremarkable except HyperK, EKG, albuterol and insulin ordered mild leukocytosis, but non tachy non septic appearing pt in NAD 2133 No EKG changes suspicious for HyperK EK, nsr, no stemi 2244 uti on labs, cipro ordered pending CT pt in NAD 2358 appreciate consult w/ Dr. Anne: to admit to his service, he will followup CT results pt in [facility], to TELE Disposition - Disposition Disposition: HOSPITALIZED Disposition Time: 23:58 Condition: STABLE - Clinical Impression Clinical Impression: Hyperkalemia, UTI (urinary tract infection), Cholecystostomy tube dysfunction
[2018-07-21 19:58] LABS: BASO # 0.1 K/uL (0.0-0.2); EOS # 0.3 K/uL (0.0-0.7); EOS % 2.6 % (0.0-4.0); HEMOGLOBIN 11.5 g/dL (11.0-16.0); LYMPH # 2.6 K/uL (1.0-4.3); LYMPH % 21.3 % (20.0-40.0); MEAN CELL VOLUME 79.2 fL (81.0-99.0); MEAN CORPUSCULAR HEMOGLOBIN 24.9 pg (27.0-31.0); MEAN CORPUSCULAR HGB CONC 31.5 g/dL (33.0-37.0); MEAN PLATELET VOLUME 8.9 fL (7.2-11.7); MONO # 0.5 K/uL (0.0-0.8); MONO % 4.6 % (0.0-10.0); NEUT # 8.5 K/uL (1.8-7.0); NEUT % 70.5 % (50.0-75.0); RBC 4.6 Mil/uL (3.80-5.20); RED CELL DISTRIBUTION WIDTH 17.2 % (11.5-14.5)
[2018-07-21 20:06] LABS: INR 1.1; PARTIAL THROMBOPLASTIN TIME 30.9 SECONDS (21-34); PROTHROMBIN TIME 12.2 SECONDS (9.7-12.2)
[2018-07-21 20:11] LABS: ALB/GLOB RATIO 0.9 (1.0-2.1); CALCIUM 9.3 mg/dl (8.6-10.4)
--- NOTE | 2018-07-21 20:24 | CP.PCM.CON ---
<Bernadette Kimball - Last Filed: 07/21/18 20:24> History of Present Illness - History of Present Illness History of Present Illness: Surgery: Dr. Dorsey Reason for consult: dislodged kleber tube HPI: Patient is a 67 y/o female known to surgical service s/p cholecystostomy tube placement in May for acute cholecystitis and sepsis. She was sent in today from [facility] for dislodgement of the kleber tube. Patient denies any abdominal pain, n/v/f/c. She is tolerating regular diet and having normal regular bowel movements. Patient is scheduled for elective lap kleber on August 17, 2018. PMH: DM, HTN, CVA, sepsis with DORIS 2/2 acute kleber PSH: JAMES thibodeaux kleber tube placement NKDA Social: lives in [place], denies toxic habits Fam hx: noncontributory Review of Systems - Review of Systems All systems: reviewed and no additional remarkable complaints except - Constitutional Constitutional: absent: Anorexia, Chills, Fever - EENT Eyes: absent: Blurred Vision, Change in Vision Ears: absent: Dizziness Nose/Mouth/Throat: absent: Sore Throat, Neck Pain - Cardiovascular Cardiovascular: absent: Chest Pain, Dyspnea - Respiratory Respiratory: absent: Cough, Wheezing, Excessive Mucous Production - Gastrointestinal Gastrointestinal: absent: Abdominal Pain, Belching, Bloating, Cramping, Diarrhea, Heartburn, Nausea, Vomiting - Genitourinary Genitourinary: absent: Hematuria, Pyuria - Musculoskeletal Musculoskeletal: absent: Back Pain, Numbness - Integumentary Integumentary: absent: Bleeding Lesions, New Lesions - Neurological Neurological: absent: Tingling, Tremor - Psychiatric Psychiatric: absent: Anxiety, Confusion - Endocrine Endocrine: absent: Polyphagia, Polyuria - Hematologic/Lymphatic Hematologic: absent: Easy Bleeding, Easy Bruising 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) Other/Comment: h/o CVA 2003 - HEENT Hx HEENT Problems: Yes Other/Comment: RT EYE PROSTHESIS - RENAL Hx Chronic Kidney Disease: No - ENDOCRINE/METABOLIC Hx Endocrine Disorders: Yes Hx Diabetes Mellitus Type 2: Yes - HEMATOLOGICAL/ONCOLOGICAL Hx Anemia: Yes Hx Human Immunodeficiency Virus (HIV): No - INTEGUMENTARY Hx Dermatological Problems: No - MUSCULOSKELETAL/RHEUMATOLOGICAL Hx Falls: No - GASTROINTESTINAL Hx Constipation: Yes Other/Comment: cholecystitis - GENITOURINARY/GYNECOLOGICAL Hx Genitourinary Disorders: No - PSYCHIATRIC Hx Substance Use: No - SURGICAL HISTORY Hx Appendectomy: Yes - ANESTHESIA Hx Anesthesia: Yes Hx Anesthesia Reactions: No Hx Malignant Hyperthermia: No Meds Allergies/Adverse Reactions: Allergies Allergy/AdvReac Type Severity Reaction Status Date / Time No Known Allergies Allergy Verified 07/25/18 12:24 Physical Exam - Constitutional Appears: Non-toxic, No Acute Distress, Chronically Ill - Head Exam Head Exam: ATRAUMATIC, NORMOCEPHALIC - Eye Exam Eye Exam: EOMI, Normal appearance - ENT Exam ENT Exam: Mucous Membranes Moist - Respiratory Exam Respiratory Exam: NORMAL BREATHING PATTERN. absent: Respiratory Distress - Cardiovascular Exam Cardiovascular Exam: REGULAR RHYTHM. absent: Tachycardia - GI/Abdominal Exam GI & Abdominal Exam: Soft. absent: Distended, Tenderness Additional comments: prior kleber tube site with island dressing CDI - Neurological Exam Neurological exam: Alert, Oriented x3 - Psychiatric Exam Psychiatric exam: Normal Affect, Normal Mood - Skin Skin Exam: Normal Color, Warm Results - Vital Signs Recent Vital Signs: Last Vital Signs Temp 98.3 F 07/21/18 18:15 Pulse 62 07/21/18 18:15 Resp 18 07/21/18 18:15 BP 149/65 07/21/18 18:15 Pulse Ox 96 07/21/18 18:15 - Labs Result Diagrams: 07/21/18 19:50 07/21/18 19:50 Labs: Laboratory Results - last 24 hr 07/21/18 07/21/18 07/21/18 18:50 19:50 19:50 WBC 12.0 H D RBC 4.60 Hgb 11.5 Hct 36.5 MCV 79.2 L MCH 24.9 L MCHC 31.5 L RDW 17.2 H Plt Count 531 H D MPV 8.9 Neut % (Auto) 70.5 Lymph % (Auto) 21.3 [place] % (Auto) 4.6 Eos % (Auto) 2.6 Baso % (Auto) 1.0 Neut # (Auto) 8.5 H Lymph # (Auto) 2.6 [place] # (Auto) 0.5 Eos # (Auto) 0.3 Baso # (Auto) 0.1 PT 12.2 INR 1.1 APTT 30.9 Sodium Potassium Chloride Carbon Dioxide Anion Gap BUN Creatinine Est GFR ( Amer) Est GFR (Non-Af Amer) POC Glucose (mg/dL) 269 H Random Glucose Calcium Total Bilirubin AST ALT Alkaline Phosphatase Total Protein Albumin Globulin Albumin/Globulin Ratio Lipase 07/21/18 19:50 WBC RBC Hgb Hct MCV MCH MCHC RDW Plt Count MPV Neut % (Auto) Lymph % (Auto) [place] % (Auto) Eos % (Auto) Baso % (Auto) Neut # (Auto) Lymph # (Auto) [place] # (Auto) Eos # (Auto) Baso # (Auto) PT INR APTT Sodium 138 Potassium 6.1 H Chloride 99 Carbon Dioxide 28 Anion Gap 17 BUN 24 H Creatinine 1.7 H Est GFR ( Amer) 36 Est GFR (Non-Af Amer) 30 POC Glucose (mg/dL) Random Glucose 253 H D Calcium 9.3 Total Bilirubin 0.7 AST 35 ALT 9 D Alkaline Phosphatase 128 H D Total Protein 8.6 H Albumin 4.0 Globulin 4.6 H Albumin/Globulin Ratio 0.9 L Lipase 27 Assessment & Plan - Assessment and Plan (Free Text) Assessment: 67 y/o female with dislodged kleber tube Plan: -no intervention at this time -f/u for elective outpatient surgery as scheduled -cleared for d/c back to [place] from surgical standpoint if ER work up negative -d/w Dr. Dorsey AKWhite PGY4 <Anatoly Dorsey B - Last Filed: 07/25/18 20:18> Results - Vital Signs Recent Vital Signs: Last Vital Signs Temp 98.6 F 07/24/18 16:00 Pulse 61 07/24/18 16:00 Resp 18 07/24/18 16:00 BP 153/64 H 07/24/18 16:00 Pulse Ox 93 L 07/24/18 16:00 - Labs Result Diagrams: 07/23/18 08:08 07/23/18 08:08 Attending/Attestation - Attestation I have personally seen and examined this patient.: Yes I have fully participated in the care of the patient.: Yes I have reviewed all pertinent clinical information: Yes Notes (Text): Pt was seen and examined at bedside Agree with above note and assessment Pt with UTI and dislodged Cholecystostomy tube Abdomen : Soft, NT, ND Labs and Radiology reviewed Ass: Chronic Cholecystitis with Cholelithiasis Plan : Observation overnight Pt would need out pt Lap Cholecystectomy C/w current mx IV antibiotics Plan d.w pt in detail Risk and benefit explained in detail.
[2018-07-21] MEDS ORDERED: (Novolin R) Insulin Human Regular 100 units/ml vial IVP ONE (20:38)
[2018-07-21] MEDS ORDERED: Albuterol 0.083% Inhal Sol (2.5 mg/3 mL) UD INH STA (20:38)
[2018-07-21] MEDS ORDERED: Dextrose 50% SYRINGE Inj (50 ml) IV STA (20:38)
[2018-07-21] MEDS ORDERED: (Novolin R) Insulin Human Regular 100 units/ml vial ONE (20:46)
[2018-07-21] MEDS ORDERED: Dextrose 50% SYRINGE Inj (50 ml) ONE (20:46)
[2018-07-21] MEDS ORDERED: Albuterol 0.083% Inhal Sol (2.5 mg/3 mL) UD ONE (20:47)
[2018-07-21 22:39] LABS: SQUAMOUS EPITHIAL 3 /hpf (0-5); URINE BACTERIA RARE (<OCC); URINE BILIRUBIN NEGATIVE (NEGATIVE); URINE BLOOD 1+ (NEGATIVE); URINE CLARITY Hazy (Clear); URINE COLOR Yellow (YELLOW); URINE GLUCOSE (UA) 3+ mg/dL (Normal); URINE LEUKOCYTE ESTERASE 3+ Leu/uL (Negative); URINE PROTEIN 1+ mg/dL (NEGATIVE); URINE UROBILINOGEN NORMAL mg/dL (0.2-1.0)
[2018-07-21] MEDS ORDERED: Ciprofloxacin 400mg/200ml D5W 400 MG/200 ML BAG IVPB STA (22:43)
[2018-07-21] MEDS ORDERED: Ciprofloxacin 400mg/200ml D5W 400 MG/200 ML BAG IVPB ONE (23:35)
[2018-07-22] MEDS ORDERED: Magnesium Hydroxide Susp 30 ml UD PO PRN (00:42)
[2018-07-22] MEDS: Piperacillin/Tazobact 3.375 GM in Sodium Chloride 100 ML IVPB SCH ×2 (02:11→09:34)
[2018-07-22] MEDS ORDERED: SILVER SULFADIAZINE 1% TP SCH (06:00)
[2018-07-22 07:11] LABS: BASO % 0.3 % (0.0-2.0); EOS # 0.1 K/uL (0.0-0.7); EOS % 0.9 % (0.0-4.0); HEMOGLOBIN 9.8 g/dL (11.0-16.0); LYMPH # 0.5 K/uL (1.0-4.3); LYMPH % 3.6 % (20.0-40.0); MEAN CELL VOLUME 77.6 fL (81.0-99.0); MEAN CORPUSCULAR HEMOGLOBIN 25.3 pg (27.0-31.0); MEAN CORPUSCULAR HGB CONC 32.6 g/dL (33.0-37.0); MEAN PLATELET VOLUME 8.5 fL (7.2-11.7); MONO # 0.2 K/uL (0.0-0.8); MONO % 1.1 % (0.0-10.0); NEUT # 13.3 K/uL (1.8-7.0); NEUT % 94.1 % (50.0-75.0); PLATELET COUNT 444 K/uL (130-400); RBC 3.89 Mil/uL (3.80-5.20); RED CELL DISTRIBUTION WIDTH 17.2 % (11.5-14.5); WHITE BLOOD COUNT 14.1 K/uL (4.8-10.8)
[2018-07-22 07:34] LABS: ALBUMIN 3.2 g/dL (3.5-5.0); CALCIUM 8.4 mg/dl (8.6-10.4)
[2018-07-22] MEDS: Saccharomyces Boulardi 250 mg Cap PO SCH ×2 (09:35→17:17)
[2018-07-22] MEDS: Silver Sulfadiazine 1% Cream (20 gm) TOP SCH ×4 (09:36→21:11)
[2018-07-22] MEDS ORDERED: PRO STAT SUGAR FREE PO SCH ×2 (10:00)
--- NOTE | 2018-07-22 10:17 | CT ---
Date of service: 07/21/2018 PROCEDURE: CT abdomen and pelvis HISTORY: Pulled choley tube COMPARISON: Comparison made with prior CT scan 06/29/2018. TECHNIQUE: Contiguous axial images of the abdomen and pelvis performed without oral or intravenous contrast material. Additional 2D sagittal and coronal reformats generated. Radiation dose: Total exam DLP = 949.8 mGy-cm. This CT exam was performed using one or more of the following dose reduction techniques: Automated exposure control, adjustment of the mA and/or kV according to patient size, and/or use of iterative reconstruction technique. FINDINGS: LOWER THORAX: Heart is enlarged. No significant pericardial effusion.. There is a small hiatal hernia with wall thickening of distal esophagus likely due to protrusion gastric mucosa. Esophagitis not excluded. Bibasilar atelectasis right greater than. LIVER: Liver exhibits normal size and attenuation pattern. No obvious hepatic masses collections.. No change punctate calcification right lobe liver. GALLBLADDER AND BILE DUCTS: Interval removal previously noted cholecystostomy tube with residual fluid and bubbles of air within the gallbladder fossa. Fluid extends inferiorly anterior to the right lateral margin surface of the liver. PANCREAS: Pancreas remains atrophic and fatty replaced. No obvious pancreatic masses or SPLEEN: No spleen exhibits normal size and attenuation pattern without masses or collections.. Small splenule again noted. ADRENALS: No adrenal lesions are identified. KIDNEYS AND URETERS: Persistent mild cortical atrophic changes with vascular calcifications in both renal hilar regions. Redemonstrated is a small cyst posterior lateral cortex mid to lower pole left kidney.. No evidence of hydronephrosis BLADDER: The urinary bladder is physiologically distended. No evidence of intraluminal urinary bladder calculi. REPRODUCTIVE: Redemonstrated are peripheral vascular calcifications of the uterus.. Note made of what appears represent thickened vaginal biswas. Rule out postinflammatory changes; recommend direct visualization. Consider etcher printed circuit boards consultation if indicated. APPENDIX: Appendix is not positively identified. No obvious inflammatory changes right lower quadrant of the abdomen. BOWEL: Evaluation of bowel is somewhat limited due lack of oral contrast material. Stomach is distended with slight appearance. Visualized bowel contour caliber. No evidence of small bowel obstruction. PERITONEUM: As above. LYMPH NODES: No significant lymphadenopathy VASCULATURE: Unremarkable. No aortic aneurysm. Aortic atherosclerotic calcification or mural plaque present. BONES: Multilevel degenerative spondylosis of the lower thoracic and lumbar spine. Suspect fracture right symphysis pubis. OTHER FINDINGS: None. IMPRESSION: Interval removal previously noted cholecystostomy tube with residual fluid and bubbles of air within the gallbladder fossa. Fluid extends inferiorly anterior to the right lateral margin surface of the liver. Note made of what appears represent thickened vaginal biswas. Rule out postinflammatory changes; recommend direct visualization. Consider etcher printed circuit boards consultation if indicated.
[2018-07-22 10:44] LABS: ANISOCYTOSIS SLIGHT; BANDS 1 % (0-2); LYMPHOCYTE 3 % (20-40); MONOCYTE 1 % (0-10); NEUTROPHIL 95 % (50-75); PLATELET ESTIMATE SLIGHTLY INCREASED (NORMAL); TOTAL CELLS COUNTED 100
[2018-07-22 10:45] LABS: HYPOCHROMIC SLIGHT
[2018-07-22 10:46] LABS: POLYCHROMIC SLIGHT
[2018-07-22] MEDS: Piperacillin/Tazobact 2.25 GM in Sodium Chloride 100 ML IVPB SCH ×2 (15:55→21:11)
--- NOTE | 2018-07-22 20:08 | CP.PCM.HP ---
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) Other/Comment: h/o CVA 2003 - HEENT Hx HEENT Problems: Yes Other/Comment: RT EYE PROSTHESIS - RENAL Hx Chronic Kidney Disease: No - ENDOCRINE/METABOLIC Hx Endocrine Disorders: Yes Hx Diabetes Mellitus Type 2: Yes - HEMATOLOGICAL/ONCOLOGICAL Hx Anemia: Yes Hx Human Immunodeficiency Virus (HIV): No - INTEGUMENTARY Hx Dermatological Problems: No - MUSCULOSKELETAL/RHEUMATOLOGICAL Hx Falls: No - GASTROINTESTINAL Hx Constipation: Yes Other/Comment: cholecystitis - GENITOURINARY/GYNECOLOGICAL Hx Genitourinary Disorders: No - PSYCHIATRIC Hx Substance Use: No - SURGICAL HISTORY Hx Appendectomy: Yes - ANESTHESIA Hx Anesthesia: Yes Hx Anesthesia Reactions: No Hx Malignant Hyperthermia: No Has any member of the family had a problem w/ anesthesia?: No Meds Allergies/Adverse Reactions: Allergies Allergy/AdvReac Type Severity Reaction Status Date / Time No Known Allergies Allergy Verified 07/21/18 18:41 Physical Exam - Constitutional Appears: Well - Head Exam Head Exam: ATRAUMATIC, NORMAL INSPECTION, NORMOCEPHALIC - Eye Exam Eye Exam: EOMI, Normal appearance, PERRL Pupil Exam: NORMAL ACCOMODATION, PERRL - ENT Exam ENT Exam: Mucous Membranes Moist, Normal Exam - Neck Exam Neck exam: Positive for: Normal Inspection - Respiratory Exam Respiratory Exam: Decreased Breath Sounds - Cardiovascular Exam Cardiovascular Exam: REGULAR RHYTHM, +S1, +S2 - GI/Abdominal Exam GI & Abdominal Exam: Diminished Bowel Sounds, Soft - Rectal Exam Rectal Exam: Deferred - Neurological Exam Neurological exam: Oriented x3 Results - Vital Signs Recent Vital Signs: Last Vital Signs Temp 99.8 F H 07/22/18 15:54 Pulse 61 07/22/18 15:54 Resp 20 07/22/18 15:54 BP 132/61 07/22/18 15:54 Pulse Ox 94 L 07/22/18 15:54 - Labs Result Diagrams: 07/22/18 06:49 07/22/18 06:49 Labs: Laboratory Results - last 24 hr 07/21/18 07/21/18 07/22/18 19:50 22:22 06:16 WBC RBC Hgb Hct MCV MCH MCHC RDW Plt Count MPV Neut % (Auto) Lymph % (Auto) Fisher % (Auto) Eos % (Auto) Baso % (Auto) Neut # (Auto) Lymph # (Auto) Fisher # (Auto) Eos # (Auto) Baso # (Auto) Neutrophils % (Manual) Band Neutrophils % Lymphocytes % (Manual) Monocytes % (Manual) Platelet Estimate Polychromasia Hypochromasia (manual) Anisocytosis (manual) Sodium 138 Potassium 6.1 H Chloride 99 Carbon Dioxide 28 Anion Gap 17 BUN 24 H Creatinine 1.7 H Est GFR ( Amer) 36 Est GFR (Non-Af Amer) 30 POC Glucose (mg/dL) 114 H Random Glucose 253 H D Calcium 9.3 Phosphorus Total Bilirubin 0.7 AST 35 ALT 9 D Alkaline Phosphatase 128 H D Total Protein 8.6 H Albumin 4.0 Globulin 4.6 H Albumin/Globulin Ratio 0.9 L Lipase 27 Urine Color Yellow Urine Clarity Hazy Urine pH 6.0 Ur Specific Miles 1.007 Urine Protein 1+ H Urine Glucose (UA) 3+ H Urine Ketones Negative Urine Blood 1+ H Urine Nitrate Negative Urine Bilirubin Negative Urine Urobilinogen Normal Ur Leukocyte Esterase 3+ H Urine WBC (Auto) 221 H Urine RBC (Auto) 33 H Ur Squamous Epith Cells 3 Urine Bacteria Rare 07/22/18 07/22/18 07/22/18 06:49 06:49 17:02 WBC 14.1 H RBC 3.89 Hgb 9.8 L Hct 30.2 L MCV 77.6 L MCH 25.3 L MCHC 32.6 L RDW 17.2 H Plt Count 444 H MPV 8.5 Neut % (Auto) 94.1 H Lymph % (Auto) 3.6 L Fisher % (Auto) 1.1 Eos % (Auto) 0.9 Baso % (Auto) 0.3 Neut # (Auto) 13.3 H Lymph # (Auto) 0.5 L Fisher # (Auto) 0.2 Eos # (Auto) 0.1 Baso # (Auto) 0.0 Neutrophils % (Manual) 95 H Band Neutrophils % 1 Lymphocytes % (Manual) 3 L Monocytes % (Manual) 1 Platelet Estimate Slightly increased H Polychromasia Slight Hypochromasia (manual) Slight Anisocytosis (manual) Slight Sodium 139 Potassium 4.5 Chloride 105 Carbon Dioxide 26 Anion Gap 13 BUN 19 H Creatinine 1.6 H Est GFR ( Amer) 39 Est GFR (Non-Af Amer) 32 POC Glucose (mg/dL) 168 H Random Glucose 106 H D Calcium 8.4 L Phosphorus 3.4 Total Bilirubin 0.5 AST 20 ALT 13 Alkaline Phosphatase 113 Total Protein 6.5 Albumin 3.2 L Globulin 3.3 Albumin/Globulin Ratio 1.0 Lipase Urine Color Urine Clarity Urine pH Ur Specific Miles Urine Protein Urine Glucose (UA) Urine Ketones Urine Blood Urine Nitrate Urine Bilirubin Urine Urobilinogen Ur Leukocyte Esterase Urine WBC (Auto) Urine RBC (Auto) Ur Squamous Epith Cells Urine Bacteria
[2018-07-23] MEDS: Piperacillin/Tazobact 2.25 GM in Sodium Chloride 100 ML IVPB SCH ×4 (03:39→21:12)
[2018-07-23] MEDS: Silver Sulfadiazine 1% Cream (20 gm) TOP SCH ×3 (06:57→21:12)
[2018-07-23 08:18] LABS: BASO % 0.7 % (0.0-2.0); EOS # 0.4 K/uL (0.0-0.7); EOS % 5.4 % (0.0-4.0); HEMOGLOBIN 10.3 g/dL (11.0-16.0); LYMPH # 1.4 K/uL (1.0-4.3); LYMPH % 20.4 % (20.0-40.0); MEAN CELL VOLUME 77.6 fL (81.0-99.0); MEAN CORPUSCULAR HEMOGLOBIN 25.3 pg (27.0-31.0); MEAN CORPUSCULAR HGB CONC 32.6 g/dL (33.0-37.0); MEAN PLATELET VOLUME 8.6 fL (7.2-11.7); MONO # 0.3 K/uL (0.0-0.8); MONO % 5.1 % (0.0-10.0); NEUT # 4.5 K/uL (1.8-7.0); NEUT % 68.4 % (50.0-75.0); RBC 4.07 Mil/uL (3.80-5.20); RED CELL DISTRIBUTION WIDTH 17.3 % (11.5-14.5)
[2018-07-23 08:30] LABS: WHITE BLOOD COUNT 6.6 K/uL (4.8-10.8)
[2018-07-23 08:35] LABS: ALB/GLOB RATIO 0.9 (1.0-2.1); ALBUMIN 3.3 g/dL (3.5-5.0); CALCIUM 8.3 mg/dl (8.6-10.4)
[2018-07-23] MEDS: Saccharomyces Boulardi 250 mg Cap PO SCH ×2 (09:42→17:15)
[2018-07-23] MEDS ORDERED: Dextrose 50% SYRINGE Inj (50 ml) IV PRN (13:18)
[2018-07-23] MEDS ORDERED: Glucagon Recombinant 1 mg Inj IM PRN (13:18)
--- NOTE | 2018-07-23 14:25 | CP.PCM.PN ---
Subjective - Date & Time of Evaluation Date of Evaluation: 07/23/18 - Subjective Subjective: patient seen and examined today no nausea no fever no diarrhea no vomiting no dizziness no shortness of breath Objective - Vital Signs/Intake and Output Vital Signs (last 24 hours): Temp Pulse Resp BP Pulse Ox 98.4 F 53 L 20 136/72 96 07/23/18 07:55 07/23/18 10:00 07/23/18 07:55 07/23/18 07:55 07/23/18 07:55 Intake and Output: 07/23/18 07/23/18 06:59 18:59 Intake Total 700 Balance 700 - Medications Medications: Current Medications Acetaminophen (Tylenol 325mg Tab) 325 mg PO Q4 PRN PRN Reason: temp>100 Amlodipine Besylate (Norvasc) 10 mg PO DAILY [facility] Last Admin: 07/23/18 09:42 Dose: 10 mg Carvedilol (Coreg) 6.25 mg PO BID [facility] Last Admin: 07/23/18 09:44 Dose: Not Given Dextrose (Dextrose 50% Inj) 0 ml IV STAT PRN; Protocol PRN Reason: Hypoglycemia Protocol Dextrose (Glutose 15) 0 gm PO ONCE PRN; Protocol PRN Reason: Hypoglycemia Protocol Glucagon (Glucagen Diagnostic Kit) 0 mg IM STAT PRN; Protocol PRN Reason: Hypoglycemia Protocol Heparin Sodium (Porcine) (Heparin) 5,000 units SC Q12 [facility] Last Admin: 07/23/18 09:42 Dose: 5,000 units Piperacillin Sod/Tazobactam (Sod 2.25 gm/ Sodium Chloride) 100 mls @ 200 mls/hr IVPB Q6H [facility]; Protocol Last Admin: 07/23/18 09:41 Dose: 200 mls/hr Dextrose (Dextrose 5% In Water 1000 Ml) 1,000 mls @ 0 mls/hr IV .Q0M PRN; Protocol PRN Reason: Hypoglycemia Protocol Insulin Aspart (Novolog) 0 unit SC ACHS [facility]; Protocol Loperamide HCl (Imodium) 2 mg PO Q6H PRN PRN Reason: Diarrhea Losartan Potassium (Cozaar) 25 mg PO DAILY [facility] Last Admin: 07/23/18 09:42 Dose: 25 mg Magnesium Hydroxide (Milk Of Magnesia) 30 ml PO DAILY PRN PRN Reason: Constipation Ondansetron HCl (Zofran Inj) 4 mg IVP Q8H PRN PRN Reason: Nausea/Vomiting Saccharomyces Saadi (Florastor) 250 mg PO BID [facility] Last Admin: 07/23/18 09:42 Dose: 250 mg Silver Sulfadiazine (Silvadene 1% 20 Gm) 0 ea TOP QSHIFT [facility] Last Admin: 07/23/18 13:01 Dose: 1 applic - Labs Labs: 07/23/18 08:08 07/23/18 08:08 PT 12.2 SECONDS (9.7-12.2) 07/21/18 19:50 INR 1.1 07/21/18 19:50 APTT 30.9 SECONDS (21-34) 07/21/18 19:50 - Constitutional Appears: Well - Head Exam Head Exam: ATRAUMATIC, NORMAL INSPECTION, NORMOCEPHALIC - Eye Exam Eye Exam: EOMI, Normal appearance, PERRL Pupil Exam: NORMAL ACCOMODATION, PERRL - ENT Exam ENT Exam: Mucous Membranes Moist, Normal Exam - Neck Exam Neck Exam: Full ROM, Normal Inspection. absent: Lymphadenopathy - Respiratory Exam Respiratory Exam: Decreased Breath Sounds - Cardiovascular Exam Cardiovascular Exam: REGULAR RHYTHM, +S1, +S2 - GI/Abdominal Exam GI & Abdominal Exam: Soft, Diminished Bowel Sounds - Rectal Exam Rectal Exam: Deferred - Neurological Exam Neurological Exam: Oriented x3
[2018-07-23] MEDS: Sodium Chloride 0.9% 1,000 ML IV SCH (15:44)
[2018-07-23] MEDS: (Novolog) Insulin Aspart, Recombinant 100 u/ml 10 ml vial SC SCH ×2 (16:59→21:30)
--- NOTE | 2018-07-23 18:07 | CP.PCM.CON ---
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 PMH: DM, HTN, CVA, sepsis with DORIS 2/2 acute kleber PSH: appy, IR kleber tube placement NKDA Social: lives [place], denies toxic habits Fam hx: noncontributory Review of Systems - Review of Systems All systems: reviewed and no additional remarkable complaints except - Constitutional Constitutional: As Per HPI - EENT Eyes: absent: As Per HPI, Blind Spots, Blurred Vision, Change in Vision, Decreased Night Vision, Diplopia, Discharge, Dry Eye, Exophthalmos, Floaters, Irritation, Itchy Eyes, Loss of Peripheral Vision, Pain, Photophobia, Requires Corrective Lenses, Sees Flashes, Spots in Vision, Tunnel Vision, Other Visual Disturbances, Loss of Vision, Other Ears: absent: As Per HPI, Decreased Hearing, Ear Discharge, Ear Pain, Tinnitus, Abnormal Hearing, Disequilibrium, Dizziness, Other Nose/Mouth/Throat: absent: As Per HPI, Epistaxis, Nasal Congestion, Nasal Discharge, Nasal Obstruction, Nasal Trauma, Nose Pain, Post Nasal Drip, Sinus Pain, Sinus Pressure, Bleeding Gums, Change in Voice, Dental Pain, Dry Mouth, Dysphagia, Halitosis, Hoarsness, Lip Swelling, Mouth Lesions, Mouth Pain, Odynophagia, Sore Throat, Throat Swelling, Tongue Swelling, Facial Pain, Neck Pain, Neck Mass, Other - Breasts Breasts: absent: As Per HPI, Change in Shape, Mass, Pain, Nipple Discharge, Nipple Inversion, Skin Changes, Swelling, Other - Cardiovascular Cardiovascular: absent: As Per HPI, Acrocyanosis, Chest Pain, Chest Pain at Rest, Chest Pain with Activity, Claudication, Diaphoresis, Dyspnea, Dyspnea on Exertion, Edema, Irregular Heart Rhythm, Pain Radiating to Arm/Neck/Jaw, Leg Edema, Leg Ulcers, Lightheadedness, Orthopnea, Palpitations, Paroxysmal Nocturnal Dyspnea, Pedal Edema, Radiating Pain, Rapid Heart Rate, Slow Heart Rate, Syncope, Other - Respiratory Respiratory: absent: As Per HPI, Cough, Dyspnea, Hemoptysis, Dyspnea on Exertion, Wheezing, Snoring, Stridor, Pain on Inspiration, Chest Congestion, Excessive Mucous Production, Change in Mucous Color, Pain with Coughing, Other - Gastrointestinal Gastrointestinal: As Per HPI - Genitourinary Genitourinary: absent: As Per HPI, Change in Urinary Stream, Difficulty Urinat ing, Dysuria, Flank Pain, Hematuria, Pyuria, Nocturia, Urinary Incontinence, Urinary Frequency, Urinary Hesitance, Urinary Urgency, Voiding Freq/Small Amts, Freq UTI, Hx Renal/Bladder Calculi, Hx /Renal Surgery, Bladder Distension, Other - Reproductive: Female Reproductive:Female: absent: As Per HPI, Amenorrhea, Amenorrhea/ Control, Currently Menstual, Cycle <21 Days, Cycle >35 Days, Cycle Variable, Menses 1-7 Days, Menses >/= 8 Days, Menses Variable, Cycle > 4 Weeks Between, No Menses for 6 Months, Heavy Menses, Light Menses, Normal Menses, Spotting Between Cycles, S/P Hysterectomy, Menopausal, Post Menopausal, Premenarche, Abnormal Vaginal Bleeding, Dysmenorrhea, Dyspareunia, Genital Lesions, Genital Pruritis, Pelvic Pain, Prolapse Symptoms, Sexual Dysfunction, Vaginal Discharge, Vaginal Dryness, Vaginal Odor, Vaginal Pruritis, Other - Menstruation Menstruation: absent: As Per HPI, Amenorrhea, Amenorrhea/ Control, Currently Menstual, Cycle <21 Days, Cycle >35 Days, Cycle Variable, Menses 1-7 D ays, Menses >/= 8 Days, Menses Variable, Cycle > 4 Weeks Between, No Menses for 6 Months, Heavy Menses, Light Menses, Normal Menses, Spotting Between Cycles, S/P Hysterectomy, Menopausal, Post Menopausal, Premenarche, Abnormal Vaginal Bleeding, Dysmenorrhea, Other - Musculoskeletal Musculoskeletal: absent: As Per HPI, Abnormal Gait, Arthralgias, Atrophy, Back Pain, Deformity, Joint Swelling, Limited Range of Motion, Loss of Height, Muscle Cramps, Muscle Weakness, Myalgias, Neck Pain, Numbness, Radiating Pain into Limb, Stiffness, Tingling, Other - Integumentary Integumentary: absent: As Per HPI, Acne, Alopecia, Bleeding Lesions, Change in Hair, Change in Nails, Change in Pigmentation, Changing Lesions, Dry Skin, Erythema, Furuncle, Hirsutism, Lesions, New Lesions, Non-Healing Lesions, Photosensitivity, Pruritus, Rash, Skin Pain, Skin Ulcer, Sores, Striae, Swelling, Unusual Bruising, Wounds, Jaundice, Other - Neurological Neurological: absent: As Per HPI, Abnormal Gait, Abnormal Hearing, Abnormal Movements, Abnormal Speech, Behavioral Changes, Burning Sensations, Confusion, Convulsions, Disequilibrium, Dizziness, Numbness, Focal Weakness, Frequent Falls, Headaches, Lack of Coordination, Loss of Vision, Memory Loss, Paresthesias, Radicular Pain, Restless Legs, Sensory Deficit, Syncope, Tingling, Tremor, Vertigo, Weakness, Other Visual Disturbances, Other - Psychiatric Psychiatric: absent: As Per HPI, Abnormal Sleep Pattern, Anhedonia, Anxiety, Auditory Hallucinations, Behavioral Changes, Change in Appetite, Change in Lauren bing, Confusion, Depression, Difficulty Concentrating, Hallucinations, Homicidal Ideation, Hopelessness, Irritability, Memory Loss, Mood Swings, Panic Attacks, Paranoia, Suicidal Ideation, Visual Hallucinations, Tactile Hallucinations, Other - Endocrine Endocrine: absent: As Per HPI, Change in Body Appearance, Change in Libido, Cold Intolorance, Deepening of Voice, Excessive Sweating, Fatigue, Flushing, Heat Intolorance, Increase in Ring/Shoe/Hat Size, Palpitations, Polydipsia, Polyphagia, Polyuria, Other - Hematologic/Lymphatic Hematologic: absent: As Per HPI, Easy Bleeding, Easy Bruising, Lymphadenopathy, Other 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) Other/Comment: h/o CVA 2003 - HEENT Hx HEENT Problems: Yes Other/Comment: RT EYE PROSTHESIS - RENAL Hx Chronic Kidney Disease: No - ENDOCRINE/METABOLIC Hx Endocrine Disorders: Yes Hx Diabetes Mellitus Type 2: Yes - HEMATOLOGICAL/ONCOLOGICAL Hx Anemia: Yes Hx Human Immunodeficiency Virus (HIV): No - INTEGUMENTARY Hx Dermatological Problems: No - MUSCULOSKELETAL/RHEUMATOLOGICAL Hx Falls: No - GASTROINTESTINAL Hx Constipation: Yes Other/Comment: cholecystitis - GENITOURINARY/GYNECOLOGICAL Hx Genitourinary Disorders: No - PSYCHIATRIC Hx Substance Use: No - SURGICAL HISTORY Hx Appendectomy: Yes - ANESTHESIA Hx Anesthesia: Yes Hx Anesthesia Reactions: No Hx Malignant Hyperthermia: No Has any member of the family had a problem w/ anesthesia?: No Meds Allergies/Adverse Reactions: Allergies Allergy/AdvReac Type Severity Reaction Status Date / Time No Known Allergies Allergy Verified 07/21/18 18:41 - Medications Medications: Current Medications Acetaminophen (Tylenol 325mg Tab) 325 mg PO Q4 PRN PRN Reason: temp>100 Amlodipine Besylate (Norvasc) 10 mg PO DAILY [facility] Last Admin: 07/23/18 09:42 Dose: 10 mg Carvedilol (Coreg) 6.25 mg PO BID [facility] Last Admin: 07/23/18 17:00 Dose: Not Given Dextrose (Dextrose 50% Inj) 0 ml IV STAT PRN; Protocol PRN Reason: Hypoglycemia Protocol Dextrose (Glutose 15) 0 gm PO ONCE PRN; Protocol PRN Reason: Hypoglycemia Protocol Glucagon (Glucagen Diagnostic Kit) 0 mg IM STAT PRN; Protocol PRN Reason: Hypoglycemia Protocol Heparin Sodium (Porcine) (Heparin) 5,000 units SC Q12 [facility] Last Admin: 07/23/18 09:42 Dose: 5,000 units Piperacillin Sod/Tazobactam (Sod 2.25 gm/ Sodium Chloride) 100 mls @ 200 mls/hr IVPB Q6H [facility]; Protocol Last Admin: 07/23/18 15:44 Dose: 200 mls/hr Dextrose (Dextrose 5% In Water 1000 Ml) 1,000 mls @ 0 mls/hr IV .Q0M PRN; Protocol PRN Reason: Hypoglycemia Protocol Sodium Chloride (Sodium Chloride 0.9%) 1,000 mls @ 30 mls/hr IV .Q24H [facility] Last Admin: 07/23/18 15:44 Dose: 30 mls/hr Insulin Aspart (Novolog) 0 unit SC ACHS [facility]; Protocol Last Admin: 07/23/18 16:59 Dose: 1 unit Loperamide HCl (Imodium) 2 mg PO Q6H PRN PRN Reason: Diarrhea Losartan Potassium (Cozaar) 25 mg PO DAILY [facility] Last Admin: 07/23/18 09:42 Dose: 25 mg Magnesium Hydroxide (Milk Of Magnesia) 30 ml PO DAILY PRN PRN Reason: Constipation Ondansetron HCl (Zofran Inj) 4 mg IVP Q8H PRN PRN Reason: Nausea/Vomiting Saccharomyces Saadi (Florastor) 250 mg PO BID [facility] Last Admin: 07/23/18 17:15 Dose: 250 mg Silver Sulfadiazine (Silvadene 1% 20 Gm) 0 ea TOP QSHIFT [facility] Last Admin: 07/23/18 13:01 Dose: 1 applic Physical Exam - Constitutional Appears: Non-toxic, No Acute Distress, Confused, Cachectic, Chronically Ill - Head Exam Head Exam: ATRAUMATIC, NORMOCEPHALIC - Eye Exam Eye Exam: EOMI. absent: Scleral icterus - ENT Exam ENT Exam: Mucous Membranes Dry - Neck Exam Neck exam: Negative for: Lymphadenopathy - Respiratory Exam Respiratory Exam: Decreased Breath Sounds - Cardiovascular Exam Cardiovascular Exam: REGULAR RHYTHM, +S1, +S2 - GI/Abdominal Exam GI & Abdominal Exam: Diminished Bowel Sounds, Tenderness. absent: Soft - Rectal Exam Rectal Exam: Deferred - Extremities Exam Extremities exam: Negative for: pedal edema - Back Exam Back exam: CVA tenderness (L), CVA tenderness (R) - Neurological Exam Neurological exam: Alert, CN II-XII Intact, Motor Sensory Deficit, Oriented x3, Reflexes Normal - Psychiatric Exam Psychiatric exam: Depressed - Skin Skin Exam: Dry Results - Vital Signs Recent Vital Signs: Last Vital Signs Temp 97.8 F 07/23/18 15:00 Pulse 57 L 07/23/18 15:00 Resp 20 07/23/18 15:00 BP 129/67 07/23/18 15:00 Pulse Ox 96 07/23/18 15:00 - Labs Result Diagrams: 07/23/18 08:08 07/23/18 08:08 Labs: Laboratory Results - last 24 hr 07/22/18 07/23/18 07/23/18 21:21 06:53 08:08 WBC 6.6 D RBC 4.07 Hgb 10.3 L Hct 31.6 L MCV 77.6 L MCH 25.3 L MCHC 32.6 L RDW 17.3 H Plt Count 422 H MPV 8.6 Neut % (Auto) 68.4 Lymph % (Auto) 20.4 [place] % (Auto) 5.1 Eos % (Auto) 5.4 H Baso % (Auto) 0.7 Neut # (Auto) 4.5 Lymph # (Auto) 1.4 [place] # (Auto) 0.3 Eos # (Auto) 0.4 Baso # (Auto) 0.0 Sodium Potassium Chloride Carbon Dioxide Anion Gap BUN Creatinine Est GFR ( Amer) Est GFR (Non-Af Amer) POC Glucose (mg/dL) 188 H 118 H Random Glucose Calcium Phosphorus Magnesium Total Bilirubin AST ALT Alkaline Phosphatase Total Protein Albumin Globulin Albumin/Globulin Ratio 07/23/18 07/23/18 07/23/18 08:08 12:07 16:27 WBC RBC Hgb Hct MCV MCH MCHC RDW Plt Count MPV Neut % (Auto) Lymph % (Auto) [place] % (Auto) Eos % (Auto) Baso % (Auto) Neut # (Auto) Lymph # (Auto) [place] # (Auto) Eos # (Auto) Baso # (Auto) Sodium 138 Potassium 4.7 Chloride 104 Carbon Dioxide 25 Anion Gap 13 BUN 16 Creatinine 1.8 H Est GFR ( Amer) 34 Est GFR (Non-Af Amer) 28 POC Glucose (mg/dL) 233 H 175 H Random Glucose 104 Calcium 8.3 L Phosphorus 3.9 Magnesium 1.8 Total Bilirubin 0.4 AST 18 ALT 10 Alkaline Phosphatase 105 Total Protein 6.9 Albumin 3.3 L Globulin 3.5 Albumin/Globulin Ratio 0.9 L Assessment & Plan (1) Cholecystostomy tube dysfunction Status: Acute (2) UTI (urinary tract infection) Status: Acute (3) DORIS (acute kidney injury) Status: Acute (4) Abdominal pain Status: Acute (5) Anemia Status: Acute (6) CVA, old, dysarthria Status: Acute - Assessment and Plan (Free Text) Assessment: cont hydration IV antibiotics await cultures
--- NOTE | 2018-07-23 22:59 | CP.PCM.CON ---
History of Present Illness - History of Present Illness History of Present Illness: 67yo F with PMHx of DM, HTN, CVA with c/o and recent cholecystostomy tube placement (06/04/18) for cholecystitis Review of Systems - Review of Systems All systems: reviewed and no additional remarkable complaints except - Constitutional Constitutional: As Per HPI - EENT Eyes: absent: As Per HPI, Blind Spots, Blurred Vision, Change in Vision, Decreased Night Vision, Diplopia, Discharge, Dry Eye, Exophthalmos, Floaters, Irritation, Itchy Eyes, Loss of Peripheral Vision, Pain, Photophobia, Requires Corrective Lenses, Sees Flashes, Spots in Vision, Tunnel Vision, Other Visual Disturbances, Loss of Vision, Other Ears: absent: As Per HPI, Decreased Hearing, Ear Discharge, Ear Pain, Tinnitus, Abnormal Hearing, Disequilibrium, Dizziness, Other Nose/Mouth/Throat: absent: As Per HPI, Epistaxis, Nasal Congestion, Nasal Discharge, Nasal Obstruction, Nasal Trauma, Nose Pain, Post Nasal Drip, Sinus Pain, Sinus Pressure, Bleeding Gums, Change in Voice, Dental Pain, Dry Mouth, Dysphagia, Halitosis, Hoarsness, Lip Swelling, Mouth Lesions, Mouth Pain, Odynophagia, Sore Throat, Throat Swelling, Tongue Swelling, Facial Pain, Neck Pain, Neck Mass, Other - Breasts Breasts: absent: As Per HPI, Change in Shape, Mass, Pain, Nipple Discharge, Nipple Inversion, Skin Changes, Swelling, Other - Cardiovascular Cardiovascular: absent: As Per HPI, Acrocyanosis, Chest Pain, Chest Pain at Rest, Chest Pain with Activity, Claudication, Diaphoresis, Dyspnea, Dyspnea on Exertion, Edema, Irregular Heart Rhythm, Pain Radiating to Arm/Neck/Jaw, Leg Edema, Leg Ulcers, Lightheadedness, Orthopnea, Palpitations, Paroxysmal Nocturnal Dyspnea, Pedal Edema, Radiating Pain, Rapid Heart Rate, Slow Heart Rate, Syncope, Other - Respiratory Respiratory: absent: As Per HPI, Cough, Dyspnea, Hemoptysis, Dyspnea on Exertion, Wheezing, Snoring, Stridor, Pain on Inspiration, Chest Congestion, Excessive Mucous Production, Change in Mucous Color, Pain with Coughing, Other - Gastrointestinal Gastrointestinal: As Per HPI - Genitourinary Genitourinary: absent: As Per HPI, Change in Urinary Stream, Difficulty Urinating, Dysuria, Flank Pain, Hematuria, Pyuria, Nocturia, Urinary Incontinence, Urinary Frequency, Urinary Hesitance, Urinary Urgency, Voiding Freq/Small Amts, Freq UTI, Hx Renal/Bladder Calculi, Hx /Renal Surgery, Bladder Distension, Other - Reproductive: Female Reproductive:Female: absent: As Per HPI, Amenorrhea, Amenorrhea/ Control, Currently Menstual, Cycle <21 Days, Cycle >35 Days, Cycle Variable, Menses 1-7 Days, Menses >/= 8 Days, Menses Variable, Cycle > 4 Weeks Between, No Menses for 6 Months, Heavy Menses, Light Menses, Normal Menses, Spotting Between Cycles, S/P Hysterectomy, Menopausal, Post Menopausal, Premenarche, Abnormal Vaginal Bleeding, Dysmenorrhea, Dyspareunia, Genital Lesions, Genital Pruritis, Pelvic Pain, Prolapse Symptoms, Sexual Dysfunction, Vaginal Discharge, Vaginal Dryness, Vaginal Odor, Vaginal Pruritis, Other - Menstruation Menstruation: absent: As Per HPI, Amenorrhea, Amenorrhea/ Control, Currently Menstual, Cycle <21 Days, Cycle >35 Days, Cycle Variable, Menses 1-7 Days, Menses >/= 8 Days, Menses Variable, Cycle > 4 Weeks Between, No Menses for 6 Months, Heavy Menses, Light Menses, Normal Menses, Spotting Between Cycles, S/P Hysterectomy, Menopausal, Post Menopausal, Premenarche, Abnormal Vaginal Bleeding, Dysmenorrhea, Other - Musculoskeletal Musculoskeletal: absent: As Per HPI, Abnormal Gait, Arthralgias, Atrophy, Back Pain, Deformity, Joint Swelling, Limited Range of Motion, Loss of Height, Muscle Cramps, Muscle Weakness, Myalgias, Neck Pain, Numbness, Radiating Pain into Limb, Stiffness, Tingling, Other - Integumentary Integumentary: absent: As Per HPI, Acne, Alopecia, Bleeding Lesions, Change in Hair, Change in Nails, Change in Pigmentation, Changing Lesions, Dry Skin, Erythema, Furuncle, Hirsutism, Lesions, New Lesions, Non-Healing Lesions, Photosensitivity, Pruritus, Rash, Skin Pain, Skin Ulcer, Sores, Striae, Swelling, Unusual Bruising, Wounds, Jaundice, Other - Neurological Neurological: absent: As Per HPI, Abnormal Gait, Abnormal Hearing, Abnormal Movements, Abnormal Speech, Behavioral Changes, Burning Sensations, Confusion, Convulsions, Disequilibrium, Dizziness, Numbness, Focal Weakness, Frequent Falls, Headaches, Lack of Coordination, Loss of Vision, Memory Loss, Parest hesias, Radicular Pain, Restless Legs, Sensory Deficit, Syncope, Tingling, Tremor, Vertigo, Weakness, Other Visual Disturbances, Other - Psychiatric Psychiatric: absent: As Per HPI, Abnormal Sleep Pattern, Anhedonia, Anxiety, Auditory Hallucinations, Behavioral Changes, Change in Appetite, Change in Libido, Confusion, Depression, Difficulty Concentrating, Hallucinations, Homicidal Ideation, Hopelessness, Irritability, Memory Loss, Mood Swings, Panic Attacks, Paranoia, Suicidal Ideation, Visual Hallucinations, Tactile Hallucinations, Other - Endocrine Endocrine: absent: As Per HPI, Change in Body Appearance, Change in Libido, Cold Intolorance, Deepening of Voice, Excessive Sweating, Fatigue, Flushing, Heat Intolorance, Increase in Ring/Shoe/Hat Size, Palpitations, Polydipsia, Polyphagia, Polyuria, Other - Hematologic/Lymphatic Hematologic: absent: As Per HPI, Easy Bleeding, Easy Bruising, Lymphadenopathy, Other 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) Other/Comment: h/o CVA 2003 - HEENT Hx HEENT Problems: Yes Other/Comment: RT EYE PROSTHESIS - RENAL Hx Chronic Kidney Disease: No - ENDOCRINE/METABOLIC Hx Endocrine Disorders: Yes Hx Diabetes Mellitus Type 2: Yes - HEMATOLOGICAL/ONCOLOGICAL Hx Anemia: Yes Hx Human Immunodeficiency Virus (HIV): No - INTEGUMENTARY Hx Dermatological Problems: No - MUSCULOSKELETAL/RHEUMATOLOGICAL Hx Falls: No - GASTROINTESTINAL Hx Constipation: Yes Other/Comment: cholecystitis - GENITOURINARY/GYNECOLOGICAL Hx Genitourinary Disorders: No - PSYCHIATRIC Hx Substance Use: No - SURGICAL HISTORY Hx Appendectomy: Yes - ANESTHESIA Hx Anesthesia: Yes Hx Anesthesia Reactions: No Hx Malignant Hyperthermia: No Has any member of the family had a problem w/ anesthesia?: No Meds Allergies/Adverse Reactions: Allergies Allergy/AdvReac Type Severity Reaction Status Date / Time No Known Allergies Allergy Verified 07/21/18 18:41 - Medications Medications: Current Medications Acetaminophen (Tylenol 325mg Tab) 325 mg PO Q4 PRN PRN Reason: temp>100 Amlodipine Besylate (Norvasc) 10 mg PO DAILY [facility] Last Admin: 07/22/18 09:35 Dose: 10 mg Carvedilol (Coreg) 6.25 mg PO BID [facility] Last Admin: 07/22/18 17:16 Dose: 6.25 mg Heparin Sodium (Porcine) (Heparin) 5,000 units SC Q12 [facility] Last Admin: 07/22/18 21:32 Dose: 5,000 units Piperacillin Sod/Tazobactam (Sod 2.25 gm/ Sodium Chloride) 100 mls @ 200 mls/hr IVPB Q6H [facility]; Protocol Last Admin: 07/22/18 21:11 Dose: 200 mls/hr Loperamide HCl (Imodium) 2 mg PO Q6H PRN PRN Reason: Diarrhea Losartan Potassium (Cozaar) 25 mg PO DAILY [facility] Last Admin: 07/22/18 09:35 Dose: 25 mg Magnesium Hydroxide (Milk Of Magnesia) 30 ml PO DAILY PRN PRN Reason: Constipation Ondansetron HCl (Zofran Inj) 4 mg IVP Q8H PRN PRN Reason: Nausea/Vomiting Saccharomyces Boulardii (Florastor) 250 mg PO BID [facility] Last Admin: 07/22/18 17:17 Dose: 250 mg Silver Sulfadiazine (Silvadene 1% 20 Gm) 0 ea TOP QSHIFT [facility] Last Admin: 07/22/18 21:11 Dose: 1 applic Results - Vital Signs Recent Vital Signs: Last Vital Signs Temp 99.8 F H 07/22/18 15:54 Pulse 61 07/22/18 15:54 Resp 20 07/22/18 15:54 BP 132/61 07/22/18 15:54 Pulse Ox 94 L 07/22/18 15:54 - Labs Result Diagrams: 07/22/18 06:49 07/22/18 06:49 Labs: Laboratory Results - last 24 hr 07/22/18 07/22/18 07/22/18 06:16 06:49 06:49 WBC 14.1 H RBC 3.89 Hgb 9.8 L Hct 30.2 L MCV 77.6 L MCH 25.3 L MCHC 32.6 L RDW 17.2 H Plt Count 444 H MPV 8.5 Neut % (Auto) 94.1 H Lymph % (Auto) 3.6 L [place] % (Auto) 1.1 Eos % (Auto) 0.9 Baso % (Auto) 0.3 Neut # (Auto) 13.3 H Lymph # (Auto) 0.5 L [place] # (Auto) 0.2 Eos # (Auto) 0.1 Baso # (Auto) 0.0 Neutrophils % (Manual) 95 H Band Neutrophils % 1 Lymphocytes % (Manual) 3 L Monocytes % (Manual) 1 Platelet Estimate Slightly increased H Polychromasia Slight Hypochromasia (manual) Slight Anisocytosis (manual) Slight Sodium 139 Potassium 4.5 Chloride 105 Carbon Dioxide 26 Anion Gap 13 BUN 19 H Creatinine 1.6 H Est GFR ( Amer) 39 Est GFR (Non-Af Amer) 32 POC Glucose (mg/dL) 114 H Random Glucose 106 H D Calcium 8.4 L Phosphorus 3.4 Total Bilirubin 0.5 AST 20 ALT 13 Alkaline Phosphatase 113 Total Protein 6.5 Albumin 3.2 L Globulin 3.3 Albumin/Globulin Ratio 1.0 07/22/18 07/22/18 17:02 21:21 WBC RBC Hgb Hct MCV MCH MCHC RDW Plt Count MPV Neut % (Auto) Lymph % (Auto) Fallon % (Auto) Eos % (Auto) Baso % (Auto) Neut # (Auto) Lymph # (Auto) Fall[place] # (Auto) Eos # (Auto) Baso # (Auto) Neutrophils % (Manual) Band Neutrophils % Lymphocytes % (Manual) Monocytes % (Manual) Platelet Estimate Polychromasia Hypochromasia (manual) Anisocytosis (manual) Sodium Potassium Chloride Carbon Dioxide Anion Gap BUN Creatinine Est GFR ( Amer) Est GFR (Non-Af Amer) POC Glucose (mg/dL) 168 H 188 H Random Glucose Calcium Phosphorus Total Bilirubin AST ALT Alkaline Phosphatase Total Protein Albumin Globulin Albumin/Globulin Ratio
[2018-07-24] MEDS: Piperacillin/Tazobact 2.25 GM in Sodium Chloride 100 ML IVPB SCH ×3 (03:35→15:58)
[2018-07-24] MEDS: Silver Sulfadiazine 1% Cream (20 gm) TOP SCH ×2 (05:35→13:39)
[2018-07-24] MEDS: (Novolog) Insulin Aspart, Recombinant 100 u/ml 10 ml vial SC SCH ×3 (07:13→17:12)
[2018-07-24] MEDS: Saccharomyces Boulardi 250 mg Cap PO SCH ×2 (09:28→17:04)
--- NOTE | 2018-07-24 12:40 | CP.PCM.PN ---
Subjective - Date & Time of Evaluation Date of Evaluation: 07/24/18 Time of Evaluation: 08:00 - Subjective Subjective: no new compaints awake alert afebrile Objective - Vital Signs/Intake and Output Vital Signs (last 24 hours): Temp Pulse Resp BP Pulse Ox 98.7 F 60 20 131/61 95 07/24/18 07:00 07/24/18 07:00 07/24/18 07:00 07/24/18 07:00 07/24/18 07:00 Intake and Output: 07/24/18 07/24/18 06:59 18:59 Intake Total 1030 Balance 1030 - Medications Medications: Current Medications Acetaminophen (Tylenol 325mg Tab) 325 mg PO Q4 PRN PRN Reason: temp>100 Amlodipine Besylate (Norvasc) 10 mg PO DAILY [facility] Last Admin: 07/24/18 09:29 Dose: 10 mg Carvedilol (Coreg) 6.25 mg PO BID [facility] Last Admin: 07/24/18 09:29 Dose: Not Given Dextrose (Dextrose 50% Inj) 0 ml IV STAT PRN; Protocol PRN Reason: Hypoglycemia Protocol Dextrose (Glutose 15) 0 gm PO ONCE PRN; Protocol PRN Reason: Hypoglycemia Protocol Glucagon (Glucagen Diagnostic Kit) 0 mg IM STAT PRN; Protocol PRN Reason: Hypoglycemia Protocol Heparin Sodium (Porcine) (Heparin) 5,000 units SC Q12 [facility] Last Admin: 07/24/18 09:28 Dose: 5,000 units Piperacillin Sod/Tazobactam (Sod 2.25 gm/ Sodium Chloride) 100 mls @ 200 mls/hr IVPB Q6H [facility]; Protocol Last Admin: 07/24/18 09:27 Dose: 200 mls/hr Dextrose (Dextrose 5% In Water 1000 Ml) 1,000 mls @ 0 mls/hr IV .Q0M PRN; Protocol PRN Reason: Hypoglycemia Protocol Sodium Chloride (Sodium Chloride 0.9%) 1,000 mls @ 30 mls/hr IV .Q24H [facility] Last Admin: 07/23/18 15:44 Dose: 30 mls/hr Insulin Aspart (Novolog) 0 unit SC ACHS [facility]; Protocol Last Admin: 07/24/18 07:13 Dose: Not Given Loperamide HCl (Imodium) 2 mg PO Q6H PRN PRN Reason: Diarrhea Losartan Potassium (Cozaar) 25 mg PO DAILY [facility] Last Admin: 07/24/18 09:28 Dose: 25 mg Magnesium Hydroxide (Milk Of Magnesia) 30 ml PO DAILY PRN PRN Reason: Constipation Ondansetron HCl (Zofran Inj) 4 mg IVP Q8H PRN PRN Reason: Nausea/Vomiting Saccharomyces Boulardii (Florastor) 250 mg PO BID [facility] Last Admin: 07/24/18 09:28 Dose: 250 mg Silver Sulfadiazine (Silvadene 1% 20 Gm) 0 ea TOP QSHIFT [facility] Last Admin: 07/24/18 05:35 Dose: 1 applic - Labs Labs: 07/23/18 08:08 07/23/18 08:08 PT 12.2 SECONDS (9.7-12.2) 07/21/18 19:50 INR 1.1 07/21/18 19:50 APTT 30.9 SECONDS (21-34) 07/21/18 19:50 - Constitutional Appears: Non-toxic, No Acute Distress, Chronically Ill - Head Exam Head Exam: ATRAUMATIC, NORMAL INSPECTION, NORMOCEPHALIC - Eye Exam Eye Exam: EOMI, Normal appearance, PERRL Pupil Exam: NORMAL ACCOMODATION, PERRL - ENT Exam ENT Exam: Mucous Membranes Moist, Normal Exam - Neck Exam Neck Exam: Full ROM, Normal Inspection. absent: Lymphadenopathy - Respiratory Exam Respiratory Exam: Clear to Ausculation Bilateral, NORMAL BREATHING PATTERN - Cardiovascular Exam Cardiovascular Exam: REGULAR RHYTHM, +S1, +S2. absent: Murmur - GI/Abdominal Exam GI & Abdominal Exam: Soft, Normal Bowel Sounds. absent: Tenderness - Rectal Exam Rectal Exam: Deferred - Exam Exam: NORMAL INSPECTION - Extremities Exam Extremities Exam: Full ROM, Normal Capillary Refill, Normal Inspection. absent: Joint Swelling, Pedal Edema - Back Exam Back Exam: NORMAL INSPECTION - Neurological Exam Neurological Exam: Alert, Awake, CN II-XII Intact, Motor Sensory Deficit, Oriented x3. absent: Normal Gait - Psychiatric Exam Psychiatric exam: Normal Affect, Normal Mood - Skin Skin Exam: Dry, Intact, Normal Color, Warm Assessment and Plan (1) Cholecystostomy tube dysfunction Status: Acute (2) UTI (urinary tract infection) Status: Acute (3) DORIS (acute kidney injury) Status: Acute (4) Abdominal pain Status: Acute (5) Anemia Status: Acute (6) CVA, old, dysarthria Status: Acute - Assessment and Plan (Free Text) Assessment: cont rx supportive care \ rx UTI
[2018-07-24] MEDS: Sodium Chloride 0.9% 1,000 ML IV SCH (15:43)
--- NOTE | 2018-07-24 17:06 | CP.PCM.PN ---
Subjective - Date & Time of Evaluation Date of Evaluation: 07/24/18 Time of Evaluation: 17:04 Objective - Vital Signs/Intake and Output Vital Signs (last 24 hours): Temp Pulse Resp BP Pulse Ox 98.7 F 58 L 20 131/61 95 07/24/18 07:00 07/24/18 10:00 07/24/18 07:00 07/24/18 07:00 07/24/18 07:00 Intake and Output: 07/24/18 07/24/18 06:59 18:59 Intake Total 1030 Balance 1030 - Medications Medications: Current Medications Acetaminophen (Tylenol 325mg Tab) 325 mg PO Q4 PRN PRN Reason: temp>100 Amlodipine Besylate (Norvasc) 10 mg PO DAILY [facility] Last Admin: 07/24/18 09:29 Dose: 10 mg Carvedilol (Coreg) 6.25 mg PO BID [facility] Last Admin: 07/24/18 09:29 Dose: Not Given Dextrose (Dextrose 50% Inj) 0 ml IV STAT PRN; Protocol PRN Reason: Hypoglycemia Protocol Dextrose (Glutose 15) 0 gm PO ONCE PRN; Protocol PRN Reason: Hypoglycemia Protocol Glucagon (Glucagen Diagnostic Kit) 0 mg IM STAT PRN; Protocol PRN Reason: Hypoglycemia Protocol Heparin Sodium (Porcine) (Heparin) 5,000 units SC Q12 [facility] Last Admin: 07/24/18 09:28 Dose: 5,000 units Piperacillin Sod/Tazobactam (Sod 2.25 gm/ Sodium Chloride) 100 mls @ 200 mls/hr IVPB Q6H [facility]; Protocol Last Admin: 07/24/18 15:58 Dose: 200 mls/hr Dextrose (Dextrose 5% In Water 1000 Ml) 1,000 mls @ 0 mls/hr IV .Q0M PRN; Protocol PRN Reason: Hypoglycemia Protocol Sodium Chloride (Sodium Chloride 0.9%) 1,000 mls @ 30 mls/hr IV .Q24H [facility] Last Admin: 07/24/18 15:43 Dose: Not Given Insulin Aspart (Novolog) 0 unit SC ACHS [facility]; Protocol Last Admin: 07/24/18 13:39 Dose: 2 unit Loperamide HCl (Imodium) 2 mg PO Q6H PRN PRN Reason: Diarrhea Losartan Potassium (Cozaar) 25 mg PO DAILY [facility] Last Admin: 07/24/18 09:28 Dose: 25 mg Magnesium Hydroxide (Milk Of Magnesia) 30 ml PO DAILY PRN PRN Reason: Constipation Ondansetron HCl (Zofran Inj) 4 mg IVP Q8H PRN PRN Reason: Nausea/Vomiting Saccharomyces Boulardii (Florastor) 250 mg PO BID [facility] Last Admin: 07/24/18 09:28 Dose: 250 mg Silver Sulfadiazine (Silvadene 1% 20 Gm) 0 ea TOP QSHIFT [facility] Last Admin: 07/24/18 13:39 Dose: 1 applic - Labs Labs: 07/23/18 08:08 07/23/18 08:08 PT 12.2 SECONDS (9.7-12.2) 07/21/18 19:50 INR 1.1 07/21/18 19:50 APTT 30.9 SECONDS (21-34) 07/21/18 19:50 Assessment and Plan - Assessment and Plan (Free Text) Assessment: place under the service of dr aislinn anne at [facility] -----call for admitting order follow up with dr hess in his office continue home medication as per med rec continue zosyn ivpb q 6 h for [address] hess activity as tolerated and facility protocol call dr aislinn anne for further order
[2018-07-24 17:57] VITALS: BP 153/64; PULSE 61; RESP 18; TEMP 98.6; O2SAT 93
--- NOTE | 2018-07-24 19:37 | CP.PCM.PN ---
Subjective - Date & Time of Evaluation Date of Evaluation: 07/24/18 Objective - Vital Signs/Intake and Output Vital Signs (last 24 hours): Temp Pulse Resp BP Pulse Ox 98.6 F 61 18 153/64 H 93 L 07/24/18 16:00 07/24/18 16:00 07/24/18 16:00 07/24/18 16:00 07/24/18 16:00 - Medications Medications: Current Medications Acetaminophen (Tylenol 325mg Tab) 325 mg PO Q4 PRN PRN Reason: temp>100 Amlodipine Besylate (Norvasc) 10 mg PO DAILY [facility] Last Admin: 07/24/18 09:29 Dose: 10 mg Carvedilol (Coreg) 6.25 mg PO BID [facility] Last Admin: 07/24/18 17:06 Dose: Not Given Dextrose (Dextrose 50% Inj) 0 ml IV STAT PRN; Protocol PRN Reason: Hypoglycemia Protocol Dextrose (Glutose 15) 0 gm PO ONCE PRN; Protocol PRN Reason: Hypoglycemia Protocol Glucagon (Glucagen Diagnostic Kit) 0 mg IM STAT PRN; Protocol PRN Reason: Hypoglycemia Protocol Heparin Sodium (Porcine) (Heparin) 5,000 units SC Q12 [facility] Last Admin: 07/24/18 09:28 Dose: 5,000 units Piperacillin Sod/Tazobactam (Sod 2.25 gm/ Sodium Chloride) 100 mls @ 200 mls/hr IVPB Q6H [facility]; Protocol Last Admin: 07/24/18 15:58 Dose: 200 mls/hr Dextrose (Dextrose 5% In Water 1000 Ml) 1,000 mls @ 0 mls/hr IV .Q0M PRN; Protocol PRN Reason: Hypoglycemia Protocol Sodium Chloride (Sodium Chloride 0.9%) 1,000 mls @ 30 mls/hr IV .Q24H [facility] Last Admin: 07/24/18 15:43 Dose: Not Given Insulin Aspart (Novolog) 0 unit SC ACHS [facility]; Protocol Last Admin: 07/24/18 17:12 Dose: Not Given Loperamide HCl (Imodium) 2 mg PO Q6H PRN PRN Reason: Diarrhea Losartan Potassium (Cozaar) 25 mg PO DAILY [facility] Last Admin: 07/24/18 09:28 Dose: 25 mg Magnesium Hydroxide (Milk Of Magnesia) 30 ml PO DAILY PRN PRN Reason: Constipation Ondansetron HCl (Zofran Inj) 4 mg IVP Q8H PRN PRN Reason: Nausea/Vomiting Saccharomyces Boulardii (Florastor) 250 mg PO BID [facility] Last Admin: 07/24/18 17:04 Dose: 250 mg Silver Sulfadiazine (Silvadene 1% 20 Gm) 0 ea TOP QSHIFT [facility] Last Admin: 07/24/18 13:39 Dose: 1 applic - Labs Labs: 07/23/18 08:08 07/23/18 08:08 PT 12.2 SECONDS (9.7-12.2) 07/21/18 19:50 INR 1.1 07/21/18 19:50 APTT 30.9 SECONDS (21-34) 07/21/18 19:50
--- NOTE | 2018-07-25 12:36 | CARD ---
APPROVED REPORT Date of service: 07/22/2018 EKG Measurement Heart [id number] <Conclusion> Sinus bradycardia Baseline artifact Otherwise normal ECG
== END 2018-07-24 20:55 | disposition home or self-care (01) | DRG 920 ==
LOC: C.ER 18:08 → C.9E 23:58 → C.5S 07-22 00:53
PROVIDERS: ADMIT Internal Medicine Nephrology; ATTEND Internal Medicine Nephrology
DX: T85.520A Displacement of bile duct prosthesis, initial encounter (principal); N39.0 Urinary tract infection, site not specified; N17.9 Acute kidney failure, unspecified; E87.5 Hyperkalemia; K80.10 Calculus of gallbladder with chronic cholecystitis without obstruction; I10 Essential (primary) hypertension; E11.9 Type 2 diabetes mellitus without complications; D64.9 Anemia, unspecified; E78.00 Pure hypercholesterolemia, unspecified; I69.351 Hemiplegia and hemiparesis following cerebral infarction affecting right dominant side; I69.922 Dysarthria following unspecified cerebrovascular disease; Z90.49 Acquired absence of other specified parts of digestive tract; Z97.0 Presence of artificial eye; Z86.73 Personal history of transient ischemic attack (TIA), and cerebral infarction without residual deficits